=== PATIENT | female | born 1965 | race Caucasian/White ===

== ENCOUNTER 2016-05-08 09:11 | Emergency (ER) | payer MEDICARE, MEDICAID ==
[~2016-05-08] VITALS: Ht 162.6 cm; Wt 63.5 kg
[~2016-05-08 09:11] MED LIST: ACHD5005 PO; ALB0.5V; ALB0.5V INH; ALBU17AE23; ALPR.25T PO; ALPR.5T; ALPR.5T PO; ALPR0.5T7 PO; AMLO10TA2 PO; AMLO10TA82 PO; BSP10T; CEPH-38 PO; CEPH500C PO; CETI10TA17 PO; CODE118S2; CYCL10TA9 PO; CYCL5TAB11; DIAZ-345 PO; DIAZ5TAB49; FAMO-119 PO; FLUC200T PO; FLUT100D; FLUT1DIS26 IH; FLUT1DIS26 INH; GABA-488 PO; HYDR-34 PO; HYDR-3714 PO; HYDR-3812 PO; HYDR1TAB PO; IBUP-1773 PO; LEVO500T2 PO; LEVO500T69 PO; LRT10T PO; MELO-195 PO; METO50TA7; MICO1KIT VG; MTP25TSR; NACL30SP2 NS; NF-ESOM40C PO; ONDA4TAB11 PO; ONDA4TAB8 PO; OXC5T; OXYC-471 PO; OXYC5TAB71 PO; PANT40SU PO; PANT40TA PO; PANT40TA3 PO; PHEN-640 PO; PRD20T PO; PRM25T PO; PROM25SU10 PR; PROM25TA14 PO; RANI150T66; RT-ALBUINH IH; RT-ALBUINH INH; SLMFT1E; SORA200T; SUCR1TAB PO; TR1C15 TOP; TRAM50TA2 PO; TRM50T PO; ZLP10T
--- OUTSIDE RECORDS SUMMARY | 2016-05-08 09:16 | XMS REPORT | Continuity of Care Document ---
Author Author [facility] Organization [facility] Address Unknown Phone Unavailable Care Team Providers Care Card Puncher Name Role Phone PCP Unavailable Source Comments Some departments are not documenting in the electronic medical record. If you do not see the information that you expected, contact Release of Information in the Health Information Management department at [phone] for further assistance in locating additional records.[facility] Active Allergies and Adverse Reactions Not on File Current Medications Not on file Active Problems Not on file Social History Tobacco Use Types Packs/Day Years Used Date Never Assessed Plan of Care Health Maintenance Due Date Last Done Comments Physical (Comprehensive) 1970 Exam Pertussis Vaccine 1974 Tetanus Vaccine 01/29/1980 Cervical Cancer Screening 01/29/1984 Breast Cancer Screening 2003 Colorectal Cancer 2013 Screening Influenza Vaccine 12/23/2015 Results from Last 3 Months Not on file
[2016-05-08 10:12] LABS: BILIRUBIN,URINE NEGATIVE (NEGATIVE); KETONES,URINE 3+ (NEGATIVE); LEUKOCYTE ESTERASE ,URINE 1+ (NEGATIVE); NITRITE,URINE NEGATIVE (NEGATIVE); PH,URINE 7 (5-9); PROTEIN,URINE 1+ (NEGATIVE); UROBILINOGEN,URINE 1 MG/DL (NORMAL)
[2016-05-08 10:21] LABS: WBC,URINE 0-2 /HPF
[2016-05-08] MEDS ORDERED: ONDANSETRON 4 MG/2 ML (SDV) Z0FRAN IVP ONE (10:30)
[2016-05-08] MEDS ORDERED: fentaNYL INJECTION 100 MCG/2 ML AMP IVP STA (10:34)
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
[2016-05-08 12:03] LABS: BASOPHILS # (AUTO) 0.1 10^3/uL (0.0-0.1); BASOPHILS % (AUTO) 1 % (0-10); EOSINOPHILS # (AUTO) 0.2 10^3/uL (0.0-0.3); EOSINOPHILS % (AUTO) 3 % (0-10); LYMPHOCYTES # (AUTO) 1.7 X 10^3 (1.0-4.0); LYMPHOCYTES % (AUTO) 31 % (12-44); MEAN CORPUSCULAR HEMOGLOBIN 33 PG (25-34); MEAN CORPUSCULAR HGB CONC 34 G/DL (32-36); MEAN CORPUSCULAR VOLUME 96 FL (80-99); MONOCYTES # (AUTO) 0.6 X 10^3 (0.0-1.0); MONOCYTES % (AUTO) 10 % (0-12); NEUTROPHILS # (AUTO) 3.1 X 10^3 (1.8-7.8); NEUTROPHILS % (AUTO) 55 % (42-75); PLATELET COUNT 126 10^3/uL (130-400); RED BLOOD COUNT 4.41 10^6/uL (4.35-5.85); RED CELL DISTRIBUTION WIDTH 13.8 % (10.0-14.5); WHITE BLOOD COUNT 5.6 10^3/uL (4.3-11.0)
[2016-05-08 12:30] LABS: ALANINE AMINOTRANSFERASE 33 U/L (0-55); ALBUMIN 4.1 G/DL (3.2-4.5); AMYLASE 81 U/L (25-125); ANION GAP 11 MMOL/L (5-14); ASPARTATE AMINO TRANSFERASE 53 U/L (5-34); BILIRUBIN,TOTAL 1.4 MG/DL (0.1-1.0); BLOOD UREA NITROGEN 8 MG/DL (7-18); BUN/CREATININE RATIO 13; CALCIUM 9.6 MG/DL (8.5-10.1); CARBON DIOXIDE 24 MMOL/L (21-32); CHLORIDE 101 MMOL/L (98-107); CREATININE SERUM 0.64 MG/DL (0.60-1.30); GFR ESTIMATED > 60; GLUCOSE 104 MG/DL (70-105); LIPASE 26 U/L (8-78); POTASSIUM 4.1 MMOL/L (3.6-5.0); SODIUM 136 MMOL/L (135-145); TOTAL PROTEIN 8.7 G/DL (6.4-8.2)
[2016-05-08 12:31] LABS: ALCOHOL < 10 MG/DL (<10)
[2016-05-08] MEDS ORDERED: HYDR-3812 PO (12:49)
[2016-05-08] MEDS ORDERED: CYCL10TA9 PO (12:49)
[2016-05-08 13:00] VITALS: BP 153/82
== END 2016-05-08 13:00 | disposition home or self-care (01) ==
LOC: EDUNIT# 09:11 → ER 09:12
DX: R11.2 Nausea with vomiting, unspecified (principal); S39.012A Strain of muscle, fascia and tendon of lower back, initial encounter; J44.9 Chronic obstructive pulmonary disease, unspecified; I10 Essential (primary) hypertension; B19.20 Unspecified viral hepatitis C without hepatic coma; F17.210 Nicotine dependence, cigarettes, uncomplicated; Z79.899 Other long term (current) drug therapy; X50.9XXA Other and unspecified overexertion or strenuous movements or postures, initial encounter; Y92.009 Unspecified place in unspecified non-institutional (private) residence as the place of occurrence of the external cause; Y99.8 Other external cause status
CPT/HCPCS: 36415; 80053; 80320; 81000; 82150; 83690; 85025; 96374; 96375

== ENCOUNTER 2016-09-01 20:00 | Emergency (ER) | payer MEDICARE, MEDICAID ==
[~2016-09-01] VITALS: Ht 160 cm; Wt 61.2 kg
--- NOTE | 2016-09-01 21:32 | Diagnostic Imaging Report ---
Cough and hemoptysis. FINDINGS: PA and lateral views were obtained. Comparison made with prior examination of 02/26/2016. FINDINGS: The heart size, mediastinal configuration, and pulmonary vascularity are within normal limits. There is no pleural effusion, pneumothorax, or pneumonia. The osseous structures are unremarkable. IMPRESSION: No acute cardiopulmonary abnormality. Dictated by: Dictated on workstation # [id number]
[2016-09-01] MEDS ORDERED: fentaNYL INJECTION 100 MCG/2 ML AMP IVP STA (21:59)
[2016-09-01 22:07] LABS: BASOPHILS # (AUTO) 0.1 10^3/uL (0.0-0.1); BASOPHILS % (AUTO) 1 % (0-10); EOSINOPHILS # (AUTO) 0.4 10^3/uL (0.0-0.3); EOSINOPHILS % (AUTO) 4 % (0-10); LYMPHOCYTES # (AUTO) 2.2 X 10^3 (1.0-4.0); LYMPHOCYTES % (AUTO) 25 % (12-44); MEAN CORPUSCULAR HEMOGLOBIN 33 PG (25-34); MEAN CORPUSCULAR HGB CONC 34 G/DL (32-36); MEAN CORPUSCULAR VOLUME 98 FL (80-99); MEAN PLATELET VOLUME 11.1 FL (7.4-10.4); MONOCYTES # (AUTO) 0.7 X 10^3 (0.0-1.0); MONOCYTES % (AUTO) 8 % (0-12); NEUTROPHILS # (AUTO) 5.6 X 10^3 (1.8-7.8); NEUTROPHILS % (AUTO) 63 % (42-75); PLATELET COUNT 112 10^3/uL (130-400); RED BLOOD COUNT 4.39 10^6/uL (4.35-5.85); RED CELL DISTRIBUTION WIDTH 14.3 % (10.0-14.5); WHITE BLOOD COUNT 8.9 10^3/uL (4.3-11.0)
[2016-09-01 22:28] LABS: ALANINE AMINOTRANSFERASE 55 U/L (0-55); ANION GAP 13 MMOL/L (5-14); ASPARTATE AMINO TRANSFERASE 86 U/L (5-34); BILIRUBIN,TOTAL 1.4 MG/DL (0.1-1.0); BLOOD UREA NITROGEN 7 MG/DL (7-18); BUN/CREATININE RATIO 11; CALCIUM 9.5 MG/DL (8.5-10.1); CARBON DIOXIDE 24 MMOL/L (21-32); CHLORIDE 99 MMOL/L (98-107); CREATININE SERUM 0.64 MG/DL (0.60-1.30); GFR ESTIMATED > 60; GLUCOSE 93 MG/DL (70-105); POTASSIUM 3.4 MMOL/L (3.6-5.0); SODIUM 136 MMOL/L (135-145); TOTAL PROTEIN 8.4 G/DL (6.4-8.2)
--- NOTE | 2016-09-01 22:35 | ED General ---
General Chief Complaint: Coughing up blood Stated Complaint: COUGHING UP BLOOD Nursing Triage Note: to ER with complaints of coughing up blood for the past several hours. Upon entering exam room, patient requests "you all gotta give me something for my back pain, I ain't been able to keep nothin down." Nursing Sepsis Screen: No Definite Risk Source of Information: Patient Exam Limitations: No Limitations History of Present Illness Time Seen by Provider: 21:40 Initial Comments Here with report of coughing up blood tonight. States that she will From a 3 hour nap and started coughing. She noted blood from her nose and then spit up some blood and then states that she vomited some more blood that was a small amount. She does have history of cirrhosis and does have history of GI bleed. This seems to be coming from the patient's upper airway region. She denies blood in her stools. States her stools have been brown and soft without changes. Does have upper abdominal discomfort but that is chronic related to her hepatitis disease. Complains of significant back pain after coughing and states that this sometimes happens. Appears more concerned about back pain currently. Timing/Duration: 1-3 Hours Severity: Moderate Associated Systoms: No Chest Pain, Cough, No Fever/Chills, Nausea/Vomiting, No Shortness of Air, No Weakness Allergies and Home Medications Allergies Coded Allergies: codeine (Verified Allergy, Unknown, 07/05/08) Home Medications Albuterol Sulfate 18 Gm Hfa.aer.ad, 2 PUFF INH Q4H PRN for SHORTNESS OF BREATH, (Reported) Alprazolam 0.5 Mg Tablet, 0.5 MG PO BID PRN for ANXIETY, (Reported) Amlodipine Besylate 10 Mg Tablet, 10 MG PO DAILY, (Reported) Cetirizine HCl 10 Mg Tablet, 5 MG PO DAILY PRN for ALLERGIES, (Reported) TAKES 1/2 (10MG) TABLET Cyclobenzaprine HCl 10 Mg Tablet, 10 MG PO BID, (Reported) Cyclobenzaprine HCl 10 Mg Tablet, 10 MG PO TID, #12 Ref 0 Prescribed by: PJ TREJO on 05/08/16 1249 Famotidine 20 Mg Tablet, 20 MG PO BID, #30 Ref 0 Prescribed by: MARITN HOLLINGSWORTH on 08/26/15 1601 Fluconazole 200 Mg Tablet, 200 MG PO DAILY, #10 Prescribed by: DAGOBERTO WOMACK on 02/19/16 2337 Fluticasone/Salmeterol 1 Each Blst.w.dev, 1 PUFF INH BID, (Reported) Gabapentin 300 Mg Capsule, 300 MG PO DAILY PRN for PAIN, (Reported) Gabapentin 300 Mg Capsule, 300 MG PO HS, (Reported) Hydrocodone/Acetaminophen 1 Each Tablet, 2 EACH PO Q6H PRN for PAIN, #12 Ref 0 Prescribed by: PJ TREJO on 02/26/16 1858 Hydrocodone/Acetaminophen 1 Each Tablet, 2 EACH PO Q6H PRN for PAIN, #10 Ref 0 Prescribed by: PJ TREJO on 05/08/16 1249 Levofloxacin 500 Mg Tablet, 500 MG PO DAILY, #10 Prescribed by: DAGOBERTO WOMACK on 02/19/16 2337 Ondansetron 4 Mg Tab.rapdis, 4 MG PO Q6H PRN for NAUSEA, #10 Ref 0 Prescribed by: MARTIN HOLLINGSWORTH on 08/26/15 1556 Pantoprazole Sodium 40 Mg Tablet.dr, 40 MG PO DAILY, (Reported) Phenazopyridine HCl 200 Mg Tablet, 1 TAB PO TID, #15 Prescribed by: DAGOBERTO WOMACK on 02/19/16 2337 Promethazine HCl 25 Mg Tablet, 25 MG PO TID PRN for NAUSEA, (Reported) Sucralfate 1 Gm Tablet, 1 GM PO ACHS, #120 Ref 1 Prescribed by: PAYTON DISLA on 08/18/15 1015 Tramadol HCl 50 Mg Tablet, 50 MG PO BID PRN for PAIN, (Reported) Triamcinolone Acet 15 Gm Cr, TOP TID PRN for SORES, (Reported) Constitutional: see HPI, No chills, No fever EENTM: epistaxis, see HPI Respiratory: No no symptoms reported Cardiovascular: no symptoms reported Gastrointestinal: abdominal pain, hematemesis Genitourinary: no symptoms reported Musculoskeletal: back pain, muscle pain Skin: no symptoms reported Psychiatric/Neurological: No Symptoms Reported Hematologic/Lymphatic: No Symptoms Reported Immunological/Allergic: no symptoms reported All Other Systems Reviewed Negative Unless Noted: Yes Past Vggdoyt-Zzmtng-Qpdwrm Hx Patient Social History Alcohol Use: Past History Recreational Drug Use: Yes (PRESENT AND PAST IV DRUG, SMOKING THC, ALCOHOL, NARCOTICS) Drug of Choice: MARIJUANA Smoking Status: Current Everyday Smoker Type Used: Cigarettes 2nd Hand Smoke Exposure: Yes Recent Foreign Travel: No Contact w/Someone Who Travel: No Recent Infectious Disease Expo: No Recent Hopitalizations: No Immunizations Up To Date Tetanus Booster (TDap): More than 5yrs Date of Pneumonia Vaccine: Jul 22, 2008 Date of Influenza Vaccine: Jan 17, 2016 Seasonal Allergies Seasonal Allergies: No Surgeries HX Surgeries: Yes (DX LAPAROSCOPY, BACK SX; ENDOSCOPIES) Surgeries: Abdominal, Adenoidectomy, Orthopedic, Tonsillectomy Respiratory Hx Respiratory Disorders: Yes Respiratory Disorders: Asthma, COPD Cardiovascular Hx Cardiac Disorders: Yes Cardiac Disorders: Heart Murmur, Hypertension Neurological Hx Neurological Disorders: No 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 System Hx 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 Disorders: Yes Sexually Transmitted Disease: Yes 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 Genitourinary Hx Genitourinary Disorders: Yes Genitourinary Disorders: Kidney Stones Gastrointestinal Hx Gastrointestinal Disorders: Yes (HEP C +, gastritis) Gastrointestinal Disorders: Gastroesophageal Reflux, Gastrointestinal Bleed, Esophageal Varices, Hepatitis, Cirrhosis Musculoskeletal Hx Musculoskeletal Disorders: Yes Musculoskeletal Disorders: Degenerate Disk Disease, Arthritis, Fibromyalgia, Chronic Back Pain Endocrine Hx Endocrine Disorders: No HEENT HX ENT Disorders: Yes (GLASSES) Cancer Hx Cancer: No Psychosocial Hx Psychiatric Problems: Yes (POLYSUBSTANCE ABUSE--ALCOHOL, DRUGS) Behavioral Health Disorders: ADD/ADHD, Anxiety Integumentary HX Skin/Integumentary Disorder: No Blood Transfusions Hx Blood Disorders: No Reviewed Nursing Assessment Reviewed/Agree w Nursing PMH: Yes Family Medical History Significant Family History: No Pertinent Family Hx Family Medial History: Alcoholism G8 SISTER Cardiovascular disease 19 FATHER Colon cancer G8 BROTHER Diabetes mellitus G8 BROTHER Drug abuse G8 SISTER FH: cancer 19 MOTHER (BRAIN) G8 BROTHER Glaucoma 19 FATHER Hypertension 19 FATHER Myocardial infarction 19 FATHER Psychosocial problem 19 FATHER G8 BROTHER G8 SISTER Physical Exam Vital Signs Vital Sign - Last 12Hours Capillary Refill : Less Than 3 Seconds General Appearance: Anxious, Mild Distress HEENT: PERRL/EOMI, Normal ENT Inspection, Pharynx Normal Neck: Non Tender, Supple Respiratory: Lungs Clear, Normal Breath Sounds Cardiovascular: Regular Rate, Rhythm, No Murmur Gastrointestinal: Hepatomegaly, No Tenderness Back: Normal Inspection, No CVA Tenderness, No Vertebral Tenderness Extremity: Non Tender, No Calf Tenderness Neurologic/Psychiatric: Alert, Oriented x3 Skin: Normal Color, Warm/Dry Progress/Results/Core Measures Results/Orders Lab Results Laboratory Tests Test 09/01/16 21:55 Range/Units White Blood Count 8.9 4.3-11.0 10^3/uL Red Blood Count 4.39 4.35-5.85 10^6/uL Hemoglobin 14.6 11.5-16.0 G/DL Hematocrit 43 35-52 % Mean Corpuscular Volume 98 80-99 FL Mean Corpuscular Hemoglobin 33 25-34 PG Mean Corpuscular Hemoglobin Concent 34 32-36 G/DL Red Cell Distribution Width 14.3 10.0-14.5 % Platelet Count 112 L 130-400 10^3/uL Mean Platelet Volume 11.1 H 7.4-10.4 FL Neutrophils (%) (Auto) 63 42-75 % Lymphocytes (%) (Auto) 25 12-44 % Monocytes (%) (Auto) 8 0-12 % Eosinophils (%) (Auto) 4 0-10 % Basophils (%) (Auto) 1 0-10 % Neutrophils # (Auto) 5.6 1.8-7.8 X 10^3 Lymphocytes # (Auto) 2.2 1.0-4.0 X 10^3 Monocytes # (Auto) 0.7 0.0-1.0 X 10^3 Eosinophils # (Auto) 0.4 H 0.0-0.3 10^3/uL Basophils # (Auto) 0.1 0.0-0.1 10^3/uL Sodium Level 136 135-145 MMOL/L Potassium Level 3.4 L 3.6-5.0 MMOL/L Chloride Level 99 98-107 MMOL/L Carbon Dioxide Level 24 21-32 MMOL/L Anion Gap 13 5-14 MMOL/L Blood Urea Nitrogen 7 7-18 MG/DL Creatinine 0.64 0.60-1.30 MG/DL Estimat Glomerular Filtration Rate > 60 BUN/Creatinine Ratio 11 Glucose Level 93 70-105 MG/DL Calcium Level 9.5 8.5-10.1 MG/DL Total Bilirubin 1.4 H 0.1-1.0 MG/DL Aspartate Amino Transf (AST/SGOT) 86 H 5-34 U/L Alanine Aminotransferase (ALT/SGPT) 55 0-55 U/L Alkaline Phosphatase 98 40-136 U/L Total Protein 8.4 H 6.4-8.2 G/DL Albumin 4.0 3.2-4.5 G/DL My Orders Orders - AROLDO MERCADO MD Chest Pa/Lat (2 View) (09/01/16 21:11) Cbc With Automated Diff (09/01/16 21:59) Comprehensive Metabolic Panel (09/01/16 21:59) Saline Lock/Iv-Start (09/01/16 21:59) Fentanyl Injection (Sublimaze Injection (09/01/16 21:59) Vital Signs/I&O Vital Sign - Last 12Hours 09/01/16 09/01/16 09/01/16 20:22 20:22 22:10 Temp 98.7 98.7 Pulse 95 Resp 18 B/P (MAP) 134/87 Pulse Ox 95 O2 Delivery Room Air Room Air Blood Pressure Mean: 103 Progress Note : Progress Note Seen and evaluated. Chest x-ray ordered. Labs, IV and fentanyl 75 g IV ordered for pain. Monitor patient. 2315: No acute findings. Pain improved. No repeat of vomiting and no bleeding. Discharged home with return precautions. Patient verbalize understanding instructions and agreement with plan. Diagnostic Imaging Diagonstic Imaging: Xray Plain Films/CT/US/NM/MRI: chest Comments NAME: AMANDA ITLLMAN [facility] REC#: [id number] PT STATUS: REG ER : 1965 PHYSICIAN: AROLDO MERCADO MD ADMIT DATE: 09/01/16/ER Signed Date of Exam: 09/01/16 CHEST PA/LAT (2 VIEW) Cough and hemoptysis. FINDINGS: PA and lateral views were obtained. Comparison made with prior examination of 02/26/2016. FINDINGS: The heart size, mediastinal configuration, and pulmonary vascularity are within normal limits. There is no pleural effusion, pneumothorax, or pneumonia. The osseous structures are unremarkable. IMPRESSION: No acute cardiopulmonary abnormality. Dictated by: Dictated on workstation # [id number] Dict: 09/01/162127 Trans: 09/01/162153 Interpreted by: KAREN LITTLE Electronically signed by: KAREN LITTLE 09/01/162153 Departure Impression Impression: Primary Impression: Back strain Qualified Codes: S39.012A - Strain of muscle, fascia and tendon of lower back , initial encounter Additional Impression: Epistaxis Disposition: HOME, SELF-CARE Condition: Improved Departure-Patient Inst. Decision time for Depature: 23:19 Referrals: RINKU MANDEL DO (PCP/Family) Primary Care Physician Patient Instructions: Gastrointestinal Bleeding (DC), Nosebleeds (DC), Upper Back Pain (DC) Add. Discharge Instructions: All discharge instructions reviewed with patient and/or family. Voiced understanding. Follow-up with your doctor on Sunday for recheck and further evaluation. Return for vomiting blood, change in color or stool to dark/tarry or bloody, increasing abdominal pain, breathing problems, weakness or other concerns as needed. Continue home medications as directed. Copy Copies To 1: RINKU MANDEL TIMOTHY D MD September 01, 2016 22:35
[2016-09-01 23:37] VITALS: BP 110/90
== END 2016-09-01 23:36 | disposition home or self-care (01) ==
LOC: EDUNIT# 20:00 → ER 20:01
DX: S39.012A Strain of muscle, fascia and tendon of lower back, initial encounter (principal); R04.2 Hemoptysis; K74.60 Unspecified cirrhosis of liver; I10 Essential (primary) hypertension; J44.9 Chronic obstructive pulmonary disease, unspecified; F17.210 Nicotine dependence, cigarettes, uncomplicated; Z79.899 Other long term (current) drug therapy; X58.XXXA Exposure to other specified factors, initial encounter; Y99.8 Other external cause status
CPT/HCPCS: 36415; 71020; 80053; 85025

== ENCOUNTER 2016-09-06 07:10 | Emergency (ER) | payer MEDICARE, MEDICAID ==
[~2016-09-06] VITALS: Ht 160 cm; Wt 61.2 kg
[2016-09-06] MEDS ORDERED: NS IV 1000 ML 1,000 ML IV ONE (07:28)
[2016-09-06] MEDS ORDERED: PANTOPRAZOLE 40 MG/10 ML (PROTONIX) VIAL IV ONE (07:30)
[2016-09-06] MEDS ORDERED: ONDANSETRON 4 MG/2 ML (SDV) Z0FRAN IVP ONE (07:30)
[2016-09-06 08:04] LABS: BASOPHILS # (AUTO) 0.1 10^3/uL (0.0-0.1); BASOPHILS % (AUTO) 2 % (0-10); EOSINOPHILS # (AUTO) 0.3 10^3/uL (0.0-0.3); EOSINOPHILS % (AUTO) 5 % (0-10); LYMPHOCYTES % (AUTO) 36 % (12-44); MEAN CORPUSCULAR HEMOGLOBIN 33 PG (25-34); MEAN CORPUSCULAR HGB CONC 34 G/DL (32-36); MEAN CORPUSCULAR VOLUME 98 FL (80-99); MEAN PLATELET VOLUME 11.1 FL (7.4-10.4); MONOCYTES # (AUTO) 0.5 X 10^3 (0.0-1.0); MONOCYTES % (AUTO) 9 % (0-12); NEUTROPHILS # (AUTO) 2.6 X 10^3 (1.8-7.8); NEUTROPHILS % (AUTO) 48 % (42-75); PLATELET COUNT 120 10^3/uL (130-400); RED BLOOD COUNT 3.89 10^6/uL (4.35-5.85); RED CELL DISTRIBUTION WIDTH 13.9 % (10.0-14.5); WHITE BLOOD COUNT 5.5 10^3/uL (4.3-11.0)
[2016-09-06 08:05] LABS: BILIRUBIN,URINE NEGATIVE (NEGATIVE); KETONES,URINE NEGATIVE (NEGATIVE); LEUKOCYTE ESTERASE ,URINE NEGATIVE (NEGATIVE); NITRITE,URINE NEGATIVE (NEGATIVE); PH,URINE 6.5 (5-9); PROTEIN,URINE NEGATIVE (NEGATIVE); UROBILINOGEN,URINE 1 MG/DL (NORMAL)
[2016-09-06 08:14] LABS: INR 1.1 (0.8-1.4); PROTHROMBIN TIME PATIENT 14.2 SEC (12.2-14.7)
[2016-09-06 08:26] LABS: ALANINE AMINOTRANSFERASE 39 U/L (0-55); ALBUMIN 3.7 G/DL (3.2-4.5); AMMONIA 54 UMOL/L (11-32); AMYLASE 61 U/L (25-125); ANION GAP 11 MMOL/L (5-14); ASPARTATE AMINO TRANSFERASE 59 U/L (5-34); BILIRUBIN,TOTAL 0.7 MG/DL (0.1-1.0); BLOOD UREA NITROGEN 8 MG/DL (7-18); BUN/CREATININE RATIO 12; CALCIUM 9.2 MG/DL (8.5-10.1); CARBON DIOXIDE 25 MMOL/L (21-32); CHLORIDE 102 MMOL/L (98-107); CREATININE SERUM 0.66 MG/DL (0.60-1.30); GFR ESTIMATED > 60; GLUCOSE 107 MG/DL (70-105); LIPASE 45 U/L (8-78); MAGNESIUM 2.2 MG/DL (1.8-2.4); POTASSIUM 3.6 MMOL/L (3.6-5.0); SODIUM 138 MMOL/L (135-145); TOTAL PROTEIN 7.8 G/DL (6.4-8.2)
[2016-09-06 08:27] LABS: ALCOHOL < 10 MG/DL (<10)
[2016-09-06 08:29] LABS: SQUAMOUS EPITHELIAL CELL,UR 25-50 /HPF
--- NOTE | 2016-09-06 08:29 | ED General ---
General Chief Complaint: Abdominal/GI Problems Stated Complaint: THROWING UP BLOOD,BACK PAIN Nursing Triage Note: c/o intermittant spitting up blood since Sunday. Dark stools reported. Hx of alcoholism. Pt in no acute distress currently. Vital signs stable. Nursing Sepsis Screen: No Definite Risk Source of Information: Patient (DIFFICULT HISTORIAN--DIFFICULT TO KEEP ON SUBJECT), Old Records History of Present Illness Time Seen by Provider: 07:19 Initial Comments PT STATES SHE HAS BEEN VOMITING BLOOD OFF AND ON SINCE SUNDAY STATES SHE VOMITED BLOOD AGAIN TODAY X 1 AT 0630 HAS HAD DARK STOOLS WELL PT HAS HISTORY OF GI BLEEDS IN PAST AND THIS IS A RECURRING PROBLEM--STATES SHE HAS HAD A "BLEEDING ULCER" PT WITH LONG HISTORY OF ALCOHOLISM AND CLAIMS SHE LAST DRANK ON SUNDAY PT ALSO HAS HEPATITIS C--NO TREATMENT PT HAS BEEN REFERRED TO , BUT SHE REFUSES TO GO THERE PT STATES WAS HERE SUNDAY FOR THE SAME THING --HOWEVER IT WAS ACTUALLY ON Sunday09/01/16 AND PT C/O BOTH COUGHING UP AND THROWING UP BLOOD AT THAT TIME PT ALSO C/O LOWER BACK PAIN STATES SHE "STEPPED OFF A CURB WRONG" AND CAUSED INCREASED PAIN IN BACK---NO FALL OR TWISTING, ETC. THIS IS ALSO A CHRONIC COMPLAINT, AND PT SEEMS MORE CONCERNED ABOUT GETTING PAIN MEDICATION FOR HER CHRONIC BACK PAIN THAN SHE DOES FOR VOMITING BLOOD-- REPEATEDLY WANTING PAIN MEDICATION HAS NOT TAKEN ANY OF HER MEDICATIONS TODAY PT HAS BEEN TO ER MULTIPLE TIMES FOR BOTH OF THESE COMPLAINTS FOR SEVERAL YEARS PCP: DR. MANDEL--PT STATES "I'M SUPPOSED TO BE THERE NOW"-STATES SHE HAS AN APPOINTMENT THIS AM AT 0900 FOR THESE PROBLEMS--PT IS UNAWARE OF TIME Allergies and Home Medications Allergies Coded Allergies: codeine (Verified Allergy, Unknown, 07/05/08) Home Medications Albuterol Sulfate 18 Gm Hfa.aer.ad, 2 PUFF INH Q4H PRN for SHORTNESS OF BREATH, (Reported) Alprazolam 0.5 Mg Tablet, 0.5 MG PO BID PRN for ANXIETY, (Reported) Amlodipine Besylate 10 Mg Tablet, 10 MG PO DAILY, (Reported) Cetirizine HCl 10 Mg Tablet, 5 MG PO DAILY PRN for ALLERGIES, (Reported) TAKES 1/2 (10MG) TABLET Cyclobenzaprine HCl 10 Mg Tablet, 10 MG PO BID, (Reported) Cyclobenzaprine HCl 10 Mg Tablet, 10 MG PO TID, #12 Ref 0 Prescribed by: PJ TREJO on 05/08/16 1249 Famotidine 20 Mg Tablet, 20 MG PO BID, #30 Ref 0 Prescribed by: MARTIN HOLLINGSWORTH on 08/26/15 1601 Fluconazole 200 Mg Tablet, 200 MG PO DAILY, #10 Prescribed by: DAGOBERTO WOMACK on 02/19/16 2337 Fluticasone/Salmeterol 1 Each Blst.w.dev, 1 PUFF INH BID, (Reported) Gabapentin 300 Mg Capsule, 300 MG PO DAILY PRN for PAIN, (Reported) Gabapentin 300 Mg Capsule, 300 MG PO HS, (Reported) Hydrocodone/Acetaminophen 1 Each Tablet, 2 EACH PO Q6H PRN for PAIN, #12 Ref 0 Prescribed by: PJ TREJO on 02/26/16 1858 Hydrocodone/Acetaminophen 1 Each Tablet, 2 EACH PO Q6H PRN for PAIN, #10 Ref 0 Prescribed by: PJ TREJO on 05/08/16 1249 Levofloxacin 500 Mg Tablet, 500 MG PO DAILY, #10 Prescribed by: DAGOBERTO WOMCAK on 02/19/16 2337 Ondansetron 4 Mg Tab.rapdis, 4 MG PO Q6H PRN for NAUSEA, #10 Ref 0 Prescribed by: MARTIN HOLLINGSWORTH on 08/26/15 1556 Pantoprazole Sodium 40 Mg Tablet.dr, 40 MG PO DAILY, (Reported) Phenazopyridine HCl 200 Mg Tablet, 1 TAB PO TID, #15 Prescribed by: DAGOBERTO WOMACK on 02/19/16 2337 Promethazine HCl 25 Mg Tablet, 25 MG PO TID PRN for NAUSEA, (Reported) Sucralfate 1 Gm Tablet, 1 GM PO ACHS, #120 Ref 1 Prescribed by: PAYTON DISLA on 08/18/15 1015 Tramadol HCl 50 Mg Tablet, 50 MG PO BID PRN for PAIN, (Reported) Triamcinolone Acet 15 Gm Cr, TOP TID PRN for SORES, (Reported) Constitutional: no symptoms reported EENTM: no symptoms reported Respiratory: see HPI Cardiovascular: no symptoms reported Gastrointestinal: see HPI, abdominal pain (CHRONIC), hematemesis, nausea, vomiting (CHRONIC) Genitourinary: no symptoms reported Musculoskeletal: see HPI, back pain (CHRONIC ) Skin: no symptoms reported Psychiatric/Neurological: No Symptoms Reported Hematologic/Lymphatic: See HPI Immunological/Allergic: no symptoms reported Past Uoxucpg-Gjtocr-Ojxifb Hx Patient Social History Alcohol Use: Regular Use (12 PACK A DAY) Recreational Drug Use: Yes (PRESENT AND PAST IV DRUGS INCLUDING METH AND COCAINE AND "ALL THE HARD STUFF" BUT DENIES HEROIN USE, CONTINUES REGULAR MARIJUANA USE, NARCOTICS) Drug of Choice: MARIJUANA Smoking Status: Current Everyday Smoker Type Used: Cigarettes 2nd Hand Smoke Exposure: Yes Recent Foreign Travel: No Contact w/Someone Who Travel: No Recent Infectious Disease Expo: No Recent Hopitalizations: No Immunizations Up To Date Tetanus Booster (TDap): More than 5yrs Date of Pneumonia Vaccine: Jul 22, 2008 Date of Influenza Vaccine: Jan 17, 2016 Seasonal Allergies Seasonal Allergies: No Surgeries HX Surgeries: Yes (DX LAPAROSCOPY, BACK SX; ENDOSCOPIES) Surgeries: Abdominal, Adenoidectomy, Orthopedic, Tonsillectomy Respiratory Hx Respiratory Disorders: Yes Respiratory Disorders: Asthma, COPD Cardiovascular Hx Cardiac Disorders: Yes Cardiac Disorders: Heart Murmur, Hypertension Neurological Hx Neurological Disorders: No 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 System Hx 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 Disorders: Yes Sexually Transmitted Disease: Yes 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 Genitourinary Hx Genitourinary Disorders: Yes Genitourinary Disorders: Kidney Stones Gastrointestinal Hx Gastrointestinal Disorders: Yes (HEP C +, gastritis) Gastrointestinal Disorders: Gastroesophageal Reflux, Gastrointestinal Bleed, Esophageal Varices, Hepatitis, Cirrhosis Musculoskeletal Hx Musculoskeletal Disorders: Yes Musculoskeletal Disorders: Degenerate Disk Disease, Arthritis, Fibromyalgia, Chronic Back Pain Endocrine Hx Endocrine Disorders: No HEENT HX ENT Disorders: Yes (GLASSES) Cancer Hx Cancer: No Psychosocial Hx Psychiatric Problems: Yes (POLYSUBSTANCE ABUSE--ALCOHOL, DRUGS) Behavioral Health Disorders: ADD/ADHD, Anxiety Integumentary HX Skin/Integumentary Disorder: No Blood Transfusions Hx Blood Disorders: No Family Medical History Significant Family History: No Pertinent Family Hx Family Medial History: Alcoholism G8 SISTER Cardiovascular disease 19 FATHER Colon cancer G8 BROTHER Diabetes mellitus G8 BROTHER Drug abuse G8 SISTER FH: cancer 19 MOTHER (BRAIN) G8 BROTHER Glaucoma 19 FATHER Hypertension 19 FATHER Myocardial infarction 19 FATHER Psychosocial problem 19 FATHER G8 BROTHER G8 SISTER No Family History of: AIDS Abdominal aortic aneurysm Alzheimer's disease Arthritis Asthma Completed stroke Parkinson's disease Respiratory disorder Seizure disorder Severe allergy Thyroid disease Physical Exam Vital Signs Vital Sign - Last 12Hours 09/06/16 07:33 Temp 98.5 Pulse 92 Resp 16 B/P (MAP) 148/108 O2 Delivery Room Air Capillary Refill : Less Than 3 Seconds General Appearance: No Apparent Distress, WD/WN, Other (MOVES WITHOUT DIFFCULTY , DOES NOT APPEAR TO BE IN ANY DISCOMFORT OR DISTRESS) HEENT: PERRL/EOMI Neck: Normal Inspection Respiratory: Normal Breath Sounds, No Accessory Muscle Use, No Respiratory Distress Cardiovascular: Regular Rate, Rhythm, No Edema, No JVD, No Murmur, Normal Peripheral Pulses Gastrointestinal: Normal Bowel Sounds, No Pulsatile Mass, Soft, Hepatomegaly, Tenderness (EPIGASTRIC), Other (ASCITES? ) Back: No CVA Tenderness, Other (DIFFUSE LOWER BACK TENDERNESS) Extremity: Normal Capillary Refill, Normal Inspection, Normal Range of Motion, Non Tender, No Calf Tenderness, No Pedal Edema Neurologic/Psychiatric: Alert, Oriented x3 (ORIENTED TO PERSON, AND PLACE, SOMEWHAT CONFUSED TO TIME, AND ORIENTED TO SITUATION. 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 as Tested Skin: Normal Color, Warm/Dry Progress/Results/Core Measures Results/Orders Lab Results Laboratory Tests Test 09/06/16 07:50 Range/Units White Blood Count 5.5 4.3-11.0 10^3/uL Red Blood Count 3.89 L 4.35-5.85 10^6/uL Hemoglobin 13.0 11.5-16.0 G/DL Hematocrit 38 35-52 % Mean Corpuscular Volume 98 80-99 FL Mean Corpuscular Hemoglobin 33 25-34 PG Mean Corpuscular Hemoglobin Concent 34 32-36 G/DL Red Cell Distribution Width 13.9 10.0-14.5 % Platelet Count 120 L 130-400 10^3/uL Mean Platelet Volume 11.1 H 7.4-10.4 FL Neutrophils (%) (Auto) 48 42-75 % Lymphocytes (%) (Auto) 36 12-44 % Monocytes (%) (Auto) 9 0-12 % Eosinophils (%) (Auto) 5 0-10 % Basophils (%) (Auto) 2 0-10 % Neutrophils # (Auto) 2.6 1.8-7.8 X 10^3 Lymphocytes # (Auto) 2.0 1.0-4.0 X 10^3 Monocytes # (Auto) 0.5 0.0-1.0 X 10^3 Eosinophils # (Auto) 0.3 0.0-0.3 10^3/uL Basophils # (Auto) 0.1 0.0-0.1 10^3/uL Prothrombin Time 14.2 12.2-14.7 SEC INR Comment 1.1 0.8-1.4 Activated Partial Thromboplast Time 32 24-35 SEC Urine Color YELLOW Urine Clarity CLEAR Urine pH 6.5 5-9 Urine Specific [place] 1.010 L 1.016-1.022 Urine Protein NEGATIVE NEGATIVE Urine Glucose (UA) NEGATIVE NEGATIVE Urine Ketones NEGATIVE NEGATIVE Urine Nitrite NEGATIVE NEGATIVE Urine Bilirubin NEGATIVE NEGATIVE Urine Urobilinogen 1 NORMAL MG/DL Urine Leukocyte Esterase NEGATIVE NEGATIVE Urine RBC (Auto) NEGATIVE NEGATIVE Urine RBC NONE /HPF Urine WBC NONE /HPF Urine Squamous Epithelial Cells 25-50 H /HPF Urine Crystals NONE /LPF Urine Bacteria TRACE /HPF Urine Casts NONE /LPF Urine Mucus NEGATIVE /LPF Urine Culture Indicated NO Sodium Level 138 135-145 MMOL/L Potassium Level 3.6 3.6-5.0 MMOL/L Chloride Level 102 98-107 MMOL/L Carbon Dioxide Level 25 21-32 MMOL/L Anion Gap 11 5-14 MMOL/L Blood Urea Nitrogen 8 7-18 MG/DL Creatinine 0.66 0.60-1.30 MG/DL Estimat Glomerular Filtration Rate > 60 BUN/Creatinine Ratio 12 Glucose Level 107 H 70-105 MG/DL Calcium Level 9.2 8.5-10.1 MG/DL Magnesium Level 2.2 1.8-2.4 MG/DL Total Bilirubin 0.7 0.1-1.0 MG/DL Aspartate Amino Transf (AST/SGOT) 59 H 5-34 U/L Alanine Aminotransferase (ALT/SGPT) 39 0-55 U/L Alkaline Phosphatase 90 40-136 U/L Ammonia 54 H 11-32 UMOL/L Total Protein 7.8 6.4-8.2 G/DL Albumin 3.7 3.2-4.5 G/DL Amylase Level 61 25-125 U/L Lipase 45 8-78 U/L Urine Opiates Screen NEGATIVE NEGATIVE Urine Oxycodone Screen NEGATIVE NEGATIVE Urine Methadone Screen NEGATIVE NEGATIVE Urine Propoxyphene Screen NEGATIVE NEGATIVE Urine Barbiturates Screen NEGATIVE NEGATIVE Ur Tricyclic Antidepressants Screen POSITIVE H NEGATIVE Urine Phencyclidine Screen NEGATIVE NEGATIVE Urine Amphetamines Screen NEGATIVE NEGATIVE Urine Methamphetamines Screen NEGATIVE NEGATIVE Urine Benzodiazepines Screen POSITIVE H NEGATIVE Urine Cocaine Screen NEGATIVE NEGATIVE Urine Cannabinoids Screen POSITIVE H NEGATIVE Serum Alcohol < 10 <10 MG/DL My Orders Orders - VUDAGOBERTO DO Saline Lock/Iv-Start (09/06/16 07:28) Alcohol (09/06/16 07:28) Ammonia (09/06/16 07:28) Amylase (09/06/16 07:28) Cbc With Automated Diff (09/06/16 07:28) Comprehensive Metabolic Panel (09/06/16 07:28) Drug Screen Stat (Urine) (09/06/16 07:28) Lipase (09/06/16 07:28) Magnesium (09/06/16 07:28) Protime With Inr (09/06/16 07:28) Partial Thromboplastin Time (09/06/16 07:28) Ua Culture If Indicated (09/06/16 07:28) Ondansetron Injection (Zofran Injectio (09/06/16 07:30) Saline Lock/Iv-Start (09/06/16 07:28) Ns Iv 1000 Ml (Sodium Chloride 0.9%) (09/06/16 07:28) Pantoprazole Injection (Protonix Injecti (09/06/16 07:30) Ct Chest/Abdomen/Pelvis W (09/06/16 08:35) Acute Abd Series (09/06/16 08:35) Iohexol Injection (Omnipaque 350 Mg/Ml 1 (09/06/16 08:45) Sodium Chloride Flush (Catheter Flush Sy (09/06/16 08:45) Ns (Ivpb) (Sodium Chloride 0.9% Ivpb Bag (09/06/16 08:45) Diphenhydramine Injection (Benadryl Inje (09/06/16 09:45) Orphenadrine Injection (Norflex Injectio (09/06/16 09:45) Medications Given in ED Current Medications Medications Dose Ordered Sig/Pino Route Start Time Stop Time Status Last Admin Dose Admin Diphenhydramine HCl 50 mg ONCE ONCE IVP 09/06/16 09:45 09/06/16 09:55 DC 09/06/16 09:54 50 MG Iohexol 100 ml ONCE ONCE IV 09/06/16 08:45 09/06/16 08:47 DC 09/06/16 08:51 100 ML Ondansetron HCl 4 mg ONCE ONCE IVP 09/06/16 07:30 09/06/16 07:31 DC 09/06/16 08:04 4 MG Orphenadrine Citrate 60 mg ONCE ONCE IV 09/06/16 09:45 09/06/16 09:55 DC 09/06/16 09:54 60 MG Pantoprazole 80 mg ONCE ONCE IV 09/06/16 07:30 09/06/16 07:31 DC 09/06/16 08:04 80 MG Sodium Chloride 100 ml ONCE ONCE IV 09/06/16 08:45 09/06/16 08:47 DC 09/06/16 08:51 80 ML Sodium Chloride 1,000 ml @ 0 mls/hr Q0M ONCE IV 09/06/16 07:28 09/06/16 07:30 DC 09/06/16 08:05 0 MLS/HR Vital Signs/I&O Vital Sign - Last 12Hours 09/06/16 07:33 Temp 98.5 Pulse 92 Resp 16 B/P (MAP) 148/108 O2 Delivery Room Air Blood Pressure Mean: 121 Progress Note : Progress Note PT WAS NOTED TO HAVE ONE EPISODE OF THROAT CLEARING AND SPIT UP BLOOD-TINGED SPUTUM--WAS NOT NAUSEATED AND DID NOT VOMIT AT THAT TIME NO COMPLAINTS OF NAUSEA OR ANY GI COMPLAINTS AND NO VOMITING DURING ENTIRE ER STAY PT REPEATEDLY WANTING PAIN MEDICATION FOR HER CHRONIC BACK PAIN (COMPLETELY FIXATED ON THIS) --LATER STATES SHE RAN OUT OF HER PAIN MEDICATION A COUPLE OF DAYS AGO, AND DR. MANDEL REFILLS THEM EVERY 2 WEEKS, AND MISSED HER APPOINTMENT TODAY ADVISED PT I WOULD NOT BE REFILLING OR PRESCRIBING ANY PAIN MEDICATIONS PT HAS RX'S FOR ZOFRAN, PHENERGAN, PANTOPRAZOLE, FAMOTIDINE, SUCRALFATE AT HOME Diagnostic Imaging Comments ACUTE ABDOMEN XRAYS--NO ACUTE PROCESS CT ABDOMEN/PELVIS--NO ACUTE PROCESS, CIRRHOSIS /PORTAL HTN PER RADIOLOGIST REPORTS @ 0927 Reviewed: Reviewed by Me Departure Communication Progress Notes 927--SPOKE WITH DR. MANDEL, PT WITH LONG HISTORY OF NON-COMPLIANCE. HE WILL SEE IN OFFICE TOMORROW Impression Impression: Primary Impression: Chronic alcoholic gastritis Additional Impressions: Cirrhosis Hepatitis C Chronic back pain Alcohol abuse Non compliance with medical treatment Disposition: HOME, SELF-CARE Condition: Stable Departure-Patient Inst. Referrals: RINKU MANDEL DO (PCP/Family) Primary Care Physician Patient Instructions: Alcohol Abuse and Alcoholism (DC), Cirrhosis (DC), Gastritis (DC), Ulcer and Gastritis Diet Add. Discharge Instructions: TAKE YOUR MEDICATIONS PRESCRIBED FOLLOW UP WITH DR. MANDEL TOMORROW--CALL TODAY FOR APPOINTMENT All discharge instructions reviewed with patient and/or family. Voiced understanding. DAGOBERTO WOMACK DO September 06, 2016 08:29
[2016-09-06] MEDS ORDERED: NS 100 ML (IVPB) BAG IV ONE (08:45)
[2016-09-06] MEDS ORDERED: CATHETER FLUSH 10 ML SYR IV PRN (08:45)
[2016-09-06] MEDS ORDERED: IOHEXOL 350 MG/ML 100 ML (OMNIPAQUE 350) VIAL IV ONE (08:45)
--- NOTE | 2016-09-06 09:19 | Diagnostic Imaging Report ---
INDICATION: Hematemesis. History of hepatitis C COMPARISON: 09/01/2016 FINDINGS: Supine and upright views of the abdomen show a nondistended bowel gas pattern. No abnormal air fluid levels or free intraperitoneal air is seen. No abnormal extraosseous calcifications are seen. Bony and soft tissue structures are within normal limits. No organomegaly is identified. Accompanying upright chest shows normal heart size and pulmonary vascularity. The lungs are well aerated and clear. The mediastinum is normal in appearance. IMPRESSION: 1. No bowel obstruction or free air. 2. Normal chest. No pneumonia or pulmonary edema. Dictated by: Dictated on workstation # [id number]
--- NOTE | 2016-09-06 09:19 | Diagnostic Imaging Report ---
PROCEDURE: CT chest, abdomen, and pelvis with contrast. TECHNIQUE: Multiple contiguous axial images were obtained through the chest, abdomen, and pelvis after the administration of intravenous contrast. INDICATION: Hemoptysis, back pain. COMPARISON: Chest CT on 02/08/2016 and the most recent abdominal/pelvic images from August 26, 2015. FINDINGS: CHEST: The lungs are clear. There has been no recurrence of the previous right basilar mucous plug. No airway filling defect. No atelectatic segment. The lungs are clear and well expanded. There is no effusion or pneumothorax. There is no lung mass. No thoracic adenopathy. The thoracic aorta is patent and nonaneurysmal with no dissection. No acute soft tissue or osseous chest wall pathology. ABDOMEN/PELVIS: There is a prominent patent periumbilical vein with periesophageal and perigastric vascular collaterals, unchanged from the prior exam, compatible with the sequelae of cirrhosis and portal venous hypertension. Nodularity of the surface of the liver on a cirrhotic basis with generalized hepatic steatosis is an unchanged finding. The nonfocal spleen is normal in size and the previous trace perihepatic ascites has resolved in the interim. There is opacification of the intra and extrahepatic portal veins; however, directional flow cannot be addressed at CT. The pancreas appears normal. The adrenals are negative. Imaging through the pelvis reveals trace pelvic free fluid. The uterus and adnexa appear unremarkable. The appendix is visualized and normal. No pelvic adenopathy or mass. The osseous structures are nonacute. IMPRESSION: CHEST: Clear chest with no acute thoracic abnormality. ABDOMEN: Redemonstration of features of cirrhosis and portal venous hypertension. We note resolution of the previous ascites with no adverse development. The intra and extrahepatic portal venous branches are opacified. Normal sized spleen. PELVIS: Trace free fluid with no loculated collection. The pelvic CT is otherwise normal. Dictated by: Dictated on workstation # [id number]
[2016-09-06] MEDS ORDERED: diphenhydrAMINE 50 MG/ML INJ (BENADRYL) IVP ONE (09:45)
[2016-09-06] MEDS ORDERED: ORPHENADRINE 60 MG/2 ML (NORFLEX) AMP IV ONE (09:45)
[2016-09-06 10:00] VITALS: BP 131/89
== END 2016-09-06 10:00 | disposition home or self-care (01) ==
LOC: EDUNIT# 07:10 → ER 07:13
DX: K29.21 Alcoholic gastritis with bleeding (principal); K70.30 Alcoholic cirrhosis of liver without ascites; K76.6 Portal hypertension; B19.20 Unspecified viral hepatitis C without hepatic coma; I10 Essential (primary) hypertension; J44.9 Chronic obstructive pulmonary disease, unspecified; M54.5 Low back pain; G89.29 Other chronic pain; F17.210 Nicotine dependence, cigarettes, uncomplicated; Z79.899 Other long term (current) drug therapy; Z91.19 Patient's noncompliance with other medical treatment and regimen
CPT/HCPCS: 36415; 71260; 74022; 74177; 80053; 80306; 80320; 81000; 82140; 82150; 83690; 83735; 85025; 85610; 85730; 96361; 96374; 96375

== ENCOUNTER → 2016-10-02 | Outpatient (CLI) | payer MEDICARE, MEDICAID ==
--- NOTE | 2016-10-02 10:53 | Diagnostic Imaging Report ---
INDICATION: Postmenopausal bleeding. COMPARISON: None. DISCUSSION: Transabdominal and transvaginal sonographic evaluation of the pelvis was performed. The uterus is normal in echotexture and size measuring 4.5 x 3.0 x 2.1 cm. No uterine mass identified. Normal endometrial thickness measuring 0.4 cm. Neither ovary was visualized, either obscured by bowel or atrophied. No abnormal adnexal mass or fluid. IMPRESSION: Nonvisualization of the bilateral ovaries. No other acute abnormality identified. Dictated by: Dictated on workstation # [id number]
== END | disposition home or self-care (01) ==
LOC: RAD 09:49
PROVIDERS: ATTEND Family Medicine
DX: N95.0 Postmenopausal bleeding (principal)
CPT/HCPCS: 76830; 76856

== ENCOUNTER → 2016-10-03 | Outpatient (CLI) | payer MEDICARE, MEDICAID ==
--- NOTE | 2016-10-04 15:18 | Diagnostic Imaging Report ---
EXAMINATION: Bilateral digital screening mammogram with CAD. The current study was also evaluated with a Computer Aided Detection (CAD) system. INDICATION: Screening. No current complaints stated on the questionnaire. COMPARISON: 01/01/2003. FINDINGS: The breasts are composed of heterogeneously dense parenchyma which may decrease mammographic sensitivity. There is an asymmetry, measuring 1 cm, along the upper aspect of the right MLO view with no definite correlate on the CC projection. There is also a 6 mm upper left breast focal asymmetry seen. No suspicious calcifications. Comparison from the previous exam of 2002 is of limited value due to the significant changes in the breast parenchyma from that time. IMPRESSION: Bilateral upper breast asymmetry is seen. Focal compression views and ultrasound evaluation is pending. ACR BI-RADS Category 0: Incomplete. (Needs additional imaging evaluation). Result letter will be mailed to the patient. Note: At least 10% of breast cancer is not imaged by mammography. Dictated by: Dictated on workstation # [id number]
== END ==
LOC: RAD 08:43
PROVIDERS: ATTEND Family Medicine
DX: Z12.31 Encounter for screening mammogram for malignant neoplasm of breast (principal)
CPT/HCPCS: 77067

== ENCOUNTER 2016-10-07 18:26 | Observation (INO) | payer MEDICARE, MEDICAID ==
[~2016-10-07] VITALS: Ht 160 cm; Wt 60.6 kg
[2016-10-07 19:04] LABS: BILIRUBIN,URINE NEGATIVE (NEGATIVE); KETONES,URINE NEGATIVE (NEGATIVE); LEUKOCYTE ESTERASE ,URINE NEGATIVE (NEGATIVE); NITRITE,URINE NEGATIVE (NEGATIVE); PH,URINE 6 (5-9); PROTEIN,URINE NEGATIVE (NEGATIVE); UROBILINOGEN,URINE NORMAL (NORMAL)
[2016-10-07 19:13] LABS: BASOPHILS # (AUTO) 0.1 10^3/uL (0.0-0.1); BASOPHILS % (AUTO) 1 % (0-10); EOSINOPHILS # (AUTO) 0.5 10^3/uL (0.0-0.3); EOSINOPHILS % (AUTO) 7 % (0-10); LYMPHOCYTES # (AUTO) 2.9 X 10^3 (1.0-4.0); LYMPHOCYTES % (AUTO) 37 % (12-44); MEAN CORPUSCULAR HEMOGLOBIN 32 PG (25-34); MEAN CORPUSCULAR HGB CONC 34 G/DL (32-36); MEAN CORPUSCULAR VOLUME 94 FL (80-99); MONOCYTES # (AUTO) 0.5 X 10^3 (0.0-1.0); MONOCYTES % (AUTO) 6 % (0-12); NEUTROPHILS # (AUTO) 3.9 X 10^3 (1.8-7.8); NEUTROPHILS % (AUTO) 50 % (42-75); PLATELET COUNT 141 10^3/uL (130-400); RED BLOOD COUNT 4.37 10^6/uL (4.35-5.85); RED CELL DISTRIBUTION WIDTH 13.6 % (10.0-14.5); WHITE BLOOD COUNT 7.9 10^3/uL (4.3-11.0)
[2016-10-07 19:13] LABS: WBC,URINE 0-2 /HPF
[2016-10-07 19:20] LABS: ALANINE AMINOTRANSFERASE 28 U/L (0-55); ALBUMIN 4.1 GM/DL (3.2-4.5); AMYLASE 91 U/L (25-125); ANION GAP 14 MMOL/L (5-14); ASPARTATE AMINO TRANSFERASE 48 U/L (5-34); BILIRUBIN,TOTAL 0.8 MG/DL (0.1-1.0); BLOOD UREA NITROGEN 5 MG/DL (7-18); BUN/CREATININE RATIO 7 (0-20); CALCIUM 9.6 MG/DL (8.5-10.1); CARBON DIOXIDE 23 MMOL/L (21-32); CHLORIDE 102 MMOL/L (98-107); CREATININE SERUM 0.68 MG/DL (0.60-1.30); GFR ESTIMATED > 60; GLUCOSE 98 MG/DL (70-105); HEMOLYSIS 40 (-100-29); ICTERUS 0.6 (-100-1.9); LIPASE 44 U/L (8-78); LIPEMIA 4 (-100-49); POTASSIUM 3.9 MMOL/L (3.6-5.0); SODIUM 139 MMOL/L (135-145); TOTAL PROTEIN 8.8 GM/DL (6.4-8.2)
[2016-10-07] MEDS ORDERED: PROMETHAZINE INJ 25 MG/ML (PHENERGAN) AMP IVP STA (20:20)
[2016-10-07] MEDS ORDERED: KETOROLAC 30 MG/ML VIAL IVP STA (20:20)
[2016-10-07] MEDS ORDERED: LACTATED RINGERS 1,000 ML IV ONE (20:20)
[2016-10-07] MEDS ORDERED: ONDANSETRON 4 MG/2 ML (SDV) Z0FRAN IVP ONE (20:30)
[2016-10-07] MEDS ORDERED: IOHEXOL 350 MG/ML 100 ML (OMNIPAQUE 350) VIAL IV ONE (20:30)
[2016-10-07] MEDS ORDERED: diphenhydrAMINE 50 MG/ML INJ (BENADRYL) IVP ONE (20:30)
[2016-10-07] MEDS ORDERED: NS 100 ML (IVPB) BAG IV ONE (20:30)
[2016-10-07] MEDS ORDERED: PANTOPRAZOLE 40 MG/10 ML (PROTONIX) VIAL IV ONE (20:30)
--- NOTE | 2016-10-07 21:15 | ED Abdominal Pain ---
General Chief Complaint: Abdominal/GI Problems Stated Complaint: L SIDE STOMACH PAIN Nursing Triage Note: States having sharp pain to left upper quad. Started yesterday. C/O nausea and vomiting. Sepsis Screen: No Definite Risk Source of Information: Patient, Old Records Allergies and Home Medications Allergies Coded Allergies: codeine (Verified Allergy, Unknown, 10/07/16) Home Medications Albuterol Sulfate 18 Gm Hfa.aer.ad, 2 PUFF INH Q4H PRN for SHORTNESS OF BREATH, (Reported) Alprazolam 0.5 Mg Tablet, 0.5 MG PO BID PRN for ANXIETY, (Reported) Amlodipine Besylate 10 Mg Tablet, 10 MG PO DAILY, (Reported) Cetirizine HCl 10 Mg Tablet, 5 MG PO DAILY PRN for ALLERGIES, (Reported) TAKES 1/2 (10MG) TABLET Cyclobenzaprine HCl 10 Mg Tablet, 10 MG PO BID, (Reported) Cyclobenzaprine HCl 10 Mg Tablet, 10 MG PO TID, #12 Ref 0 Prescribed by: PJ TREJO on 05/08/16 1249 Famotidine 20 Mg Tablet, 20 MG PO BID, #30 Ref 0 Prescribed by: MARTIN HOLLINGSWORTH on 08/26/15 1601 Fluconazole 200 Mg Tablet, 200 MG PO DAILY, #10 Prescribed by: DAGOBERTO WOMACK on 02/19/16 2337 Fluticasone/Salmeterol 1 Each Blst.w.dev, 1 PUFF INH BID, (Reported) Gabapentin 300 Mg Capsule, 300 MG PO DAILY PRN for PAIN, (Reported) Gabapentin 300 Mg Capsule, 300 MG PO HS, (Reported) Hydrocodone/Acetaminophen 1 Each Tablet, 2 EACH PO Q6H PRN for PAIN, #12 Ref 0 Prescribed by: PJ TREJO on 02/26/16 1858 Hydrocodone/Acetaminophen 1 Each Tablet, 2 EACH PO Q6H PRN for PAIN, #10 Ref 0 Prescribed by: PJ TREJO on 05/08/16 1249 Levofloxacin 500 Mg Tablet, 500 MG PO DAILY, #10 Prescribed by: DAGOBERTO WOMACK on 02/19/16 2337 Ondansetron 4 Mg Tab.rapdis, 4 MG PO Q6H PRN for NAUSEA, #10 Ref 0 Prescribed by: MARTIN HOLLINGSWORTH on 08/26/15 1556 Pantoprazole Sodium 40 Mg Tablet.dr, 40 MG PO DAILY, (Reported) Phenazopyridine HCl 200 Mg Tablet, 1 TAB PO TID, #15 Prescribed by: DAGOBERTO WOMACK on 02/19/16 2337 Promethazine HCl 25 Mg Tablet, 25 MG PO TID PRN for NAUSEA, (Reported) Sucralfate 1 Gm Tablet, 1 GM PO ACHS, #120 Ref 1 Prescribed by: PAYTON DISLA on 08/18/15 1015 Tramadol HCl 50 Mg Tablet, 50 MG PO BID PRN for PAIN, (Reported) Triamcinolone Acet 15 Gm Cr, TOP TID PRN for SORES, (Reported) Past Wfobosd-Whmbeh-Lyniyz Hx Patient Social History Alcohol Use: Rarely Uses Recreational Drug Use: Yes (PRESENT AND PAST IV DRUG, SMOKING THC, ALCOHOL, NARCOTICS) Drug of Choice: MARIJUANA Type Used: Cigarettes 2nd Hand Smoke Exposure: Yes Recent Foreign Travel: No Contact w/Someone Who Travel: No Recent Infectious Disease Expo: No Recent Hopitalizations: No Immunizations Up To Date Tetanus Booster (TDap): More than 5yrs Date of Pneumonia Vaccine: Jul 22, 2008 Date of Influenza Vaccine: Jan 17, 2016 Seasonal Allergies Seasonal Allergies: No Surgeries HX Surgeries: Yes (DX LAPAROSCOPY, BACK SX; ENDOSCOPIES) Surgeries: Abdominal, Adenoidectomy, Orthopedic, Tonsillectomy Respiratory Hx Respiratory Disorders: Yes Respiratory Disorders: Asthma, COPD Cardiovascular Hx Cardiac Disorders: Yes Cardiac Disorders: Heart Murmur, Hypertension Neurological Hx Neurological Disorders: No 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 System Hx 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 Disorders: Yes Sexually Transmitted Disease: Yes 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 Disorders: Denies 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 Genitourinary Hx Genitourinary Disorders: Yes Genitourinary Disorders: Kidney Stones Gastrointestinal Hx Gastrointestinal Disorders: Yes (HEP C +, gastritis) Gastrointestinal Disorders: Gastroesophageal Reflux, Gastrointestinal Bleed, Esophageal Varices, Hepatitis, Cirrhosis Musculoskeletal Hx Musculoskeletal Disorders: Yes Musculoskeletal Disorders: Degenerate Disk Disease, Arthritis, Fibromyalgia, Chronic Back Pain Endocrine Hx Endocrine Disorders: No HEENT HX ENT Disorders: Yes (GLASSES) Cancer Hx Cancer: No Psychosocial Hx Psychiatric Problems: Yes (POLYSUBSTANCE ABUSE--ALCOHOL, DRUGS) Behavioral Health Disorders: ADD/ADHD, Anxiety Integumentary HX Skin/Integumentary Disorder: No Blood Transfusions Hx Blood Disorders: No Family Medical History Significant Family History: No Pertinent Family Hx Family Medial History: Alcoholism G8 SISTER Cardiovascular disease 19 FATHER Colon cancer G8 BROTHER Diabetes mellitus G8 BROTHER Drug abuse G8 SISTER FH: cancer 19 MOTHER (BRAIN) G8 BROTHER Glaucoma 19 FATHER Hypertension 19 FATHER Myocardial infarction 19 FATHER Psychosocial problem 19 FATHER G8 BROTHER G8 SISTER No Family History of: AIDS Abdominal aortic aneurysm Alzheimer's disease Arthritis Asthma Completed stroke Parkinson's disease Respiratory disorder Seizure disorder Severe allergy Thyroid disease Physical Exam Vital Signs VS - Last 72 Hours, by Label 10/07/16 18:35 Temp 99.5 Pulse 100 Resp 18 B/P (MAP) 131/81 Pulse Ox 99 Capillary Refill : Less Than 3 Seconds General Appearance: other (DRAMATIC, BELLIGERANT, CURSING, DEMANDING, SPEECH SLIGHTLY SLURRED/THICK TONGUED--APPEARS TO BE UNDER THE INFLUENCE OF SOME SUBSTANCE. ) HEENT: PERRL/EOMI Respiratory: normal breath sounds, no respiratory distress, no accessory muscle use Cardiovascular: regular rate, rhythm, no murmur Gastrointestinal: soft Extremities: normal inspection Back: normal inspection, no CVA tenderness Neurologic/Psychiatric: spinal surgeon II-XII nml as tested, no motor/sensory deficits, alert, oriented x 3 Skin: normal color, warm/dry Progress/Results/Core Measures Results/Orders Lab Results Laboratory Tests Test 10/07/16 18:49 10/07/16 18:58 Range/Units White Blood Count 7.9 4.3-11.0 10^3/uL Red Blood Count 4.37 4.35-5.85 10^6/uL Hemoglobin 13.9 11.5-16.0 G/DL Hematocrit 41 35-52 % Mean Corpuscular Volume 94 80-99 FL Mean Corpuscular Hemoglobin 32 25-34 PG Mean Corpuscular Hemoglobin Concent 34 32-36 G/DL Red Cell Distribution Width 13.6 10.0-14.5 % Platelet Count 141 130-400 10^3/uL Mean Platelet Volume 11.0 H 7.4-10.4 FL Neutrophils (%) (Auto) 50 42-75 % Lymphocytes (%) (Auto) 37 12-44 % Monocytes (%) (Auto) 6 0-12 % Eosinophils (%) (Auto) 7 0-10 % Basophils (%) (Auto) 1 0-10 % Neutrophils # (Auto) 3.9 1.8-7.8 X 10^3 Lymphocytes # (Auto) 2.9 1.0-4.0 X 10^3 Monocytes # (Auto) 0.5 0.0-1.0 X 10^3 Eosinophils # (Auto) 0.5 H 0.0-0.3 10^3/uL Basophils # (Auto) 0.1 0.0-0.1 10^3/uL Sodium Level 139 135-145 MMOL/L Potassium Level 3.9 3.6-5.0 MMOL/L Chloride Level 102 98-107 MMOL/L Carbon Dioxide Level 23 21-32 MMOL/L Anion Gap 14 5-14 MMOL/L Blood Urea Nitrogen 5 L 7-18 MG/DL Creatinine 0.68 0.60-1.30 MG/DL Estimat Glomerular Filtration Rate > 60 BUN/Creatinine Ratio 7 0-20 Glucose Level 98 70-105 MG/DL Calcium Level 9.6 8.5-10.1 MG/DL Total Bilirubin 0.8 0.1-1.0 MG/DL Aspartate Amino Transf (AST/SGOT) 48 H 5-34 U/L Alanine Aminotransferase (ALT/SGPT) 28 0-55 U/L Alkaline Phosphatase 117 40-136 U/L Total Protein 8.8 H 6.4-8.2 GM/DL Albumin 4.1 3.2-4.5 GM/DL Amylase Level 91 25-125 U/L Lipase 44 8-78 U/L Serum Alcohol 22 H <10 MG/DL Urine Color YELLOW Urine Clarity CLEAR Urine pH 6 5-9 Urine Specific [place] 1.010 L 1.016-1.022 Urine Protein NEGATIVE NEGATIVE Urine Glucose (UA) NEGATIVE NEGATIVE Urine Ketones NEGATIVE NEGATIVE Urine Nitrite NEGATIVE NEGATIVE Urine Bilirubin NEGATIVE NEGATIVE Urine Urobilinogen NORMAL NORMAL MG/DL Urine Leukocyte Esterase NEGATIVE NEGATIVE Urine RBC (Auto) NEGATIVE NEGATIVE Urine RBC NONE /HPF Urine WBC 0-2 /HPF Urine Squamous Epithelial Cells 2-5 /HPF Urine Crystals NONE /LPF Urine Bacteria NEGATIVE /HPF Urine Casts NONE /LPF Urine Mucus NEGATIVE /LPF Urine Culture Indicated NO Urine Opiates Screen NEGATIVE NEGATIVE Urine Oxycodone Screen NEGATIVE NEGATIVE Urine Methadone Screen NEGATIVE NEGATIVE Urine Propoxyphene Screen NEGATIVE NEGATIVE Urine Barbiturates Screen NEGATIVE NEGATIVE Ur Tricyclic Antidepressants Screen NEGATIVE NEGATIVE Urine Phencyclidine Screen NEGATIVE NEGATIVE Urine Amphetamines Screen NEGATIVE NEGATIVE Urine Methamphetamines Screen NEGATIVE NEGATIVE Urine Benzodiazepines Screen POSITIVE H NEGATIVE Urine Cocaine Screen NEGATIVE NEGATIVE Urine Cannabinoids Screen POSITIVE H NEGATIVE My Orders Orders - VU,DAGOBERTO K DO Saline Lock/Iv-Start (10/07/16 18:59) Amylase (10/07/16 18:59) Cbc With Automated Diff (10/07/16 18:59) Comprehensive Metabolic Panel (10/07/16 18:59) Lipase (10/07/16 18:59) Ua Culture If Indicated (10/07/16 18:59) Alcohol (10/07/16 20:20) Drug Screen Stat (Urine) (10/07/16 20:20) Ct Abd/Pelv W (Appendicitis) (10/07/16 20:20) Acute Abd Series (10/07/16 20:20) Saline Lock/Iv-Start (10/07/16 20:20) Lactated Ringers (Lr 1000 Ml Iv Solution (10/07/16 20:20) Promethazine Injection (Phenergan Injec (10/07/16 20:20) Ondansetron Injection (Zofran Injectio (10/07/16 20:30) Ketorolac Injection (Toradol Injection) (10/07/16 20:20) Pantoprazole Injection (Protonix Injecti (10/07/16 20:30) Diphenhydramine Injection (Benadryl Inje (10/07/16 20:30) Iohexol Injection (Omnipaque 350 Mg/Ml 1 (10/07/16 20:30) Ns (Ivpb) (Sodium Chloride 0.9% Ivpb Bag (10/07/16 20:30) Medications Given in ED Current Medications Medications Dose Ordered Sig/Pino Route Start Time Stop Time Status Last Admin Dose Admin Diphenhydramine HCl 25 mg ONCE ONCE IVP 10/07/16 20:30 10/07/16 20:31 DC 10/07/16 20:45 25 MG Iohexol 100 ml ONCE ONCE IV 10/07/16 20:30 10/07/16 20:31 DC 10/07/16 20:54 100 ML Lactated Ringer's 1,000 ml @ 0 mls/hr Q0M ONCE IV 10/07/16 20:20 10/07/16 20:24 DC 10/07/16 21:11 0 MLS/HR Ondansetron HCl 8 mg ONCE ONCE IVP 10/07/16 20:30 10/07/16 20:31 DC 10/07/16 20:45 8 MG Pantoprazole 40 mg ONCE ONCE IV 10/07/16 20:30 10/07/16 20:31 DC 10/07/16 20:35 40 MG Sodium Chloride 100 ml ONCE ONCE IV 10/07/16 20:30 10/07/16 20:31 DC 10/07/16 20:54 80 ML Vital Signs/I&O Vital Sign - Last 12Hours 10/07/16 18:35 Temp 99.5 Pulse 100 Resp 18 B/P (MAP) 131/81 Pulse Ox 99 Blood Pressure Mean: 98 Diagnostic Imaging Comments ACUTE ABDOMEN XRAYS--CONSTIPATION, NO ACUTE PROCESS--PER RADIOLOGIST REPORT @ 2122 Reviewed: Reviewed by Me Departure Impression Condition: Improved Departure-Patient Inst. Referrals: RINKU MANDEL DO (PCP) Primary Care Physician DAGOBERTO WOMACK DO Oct 07, 2016 21:15
--- NOTE | 2016-10-07 21:15 | Diagnostic Imaging Report ---
INDICATION: Sharp pain in the left upper quadrant with nausea and vomiting EXAMINATION: Abdomen series 10/07/16 FINDINGS: Frontal chest with upright and supine imaging of the abdomen The lungs demonstrate bibasilar atelectasis. No free air is seen under the diaphragm. Scattered air and stool seen throughout the colon to the rectosigmoid. No dilated loops of bowel are seen. Findings of constipation noted. IMPRESSION: 1. Atelectasis at the lung bases 2. Findings of diffuse constipation with a nonobstructive bowel gas pattern at this time. Dictated by: Dictated on workstation # [id number]
--- NOTE | 2016-10-07 21:47 | Diagnostic Imaging Report ---
INDICATION: Sharp pains in left upper quadrant with nausea and vomiting. EXAMINATION: CT abdomen and pelvis with contrast, 10/07/2016. COMPARISON: 04/26/15 and 01/25/2015. FINDINGS: The liver is diffusely enlarged and lobular in appearance, likely due to cirrhosis. Heterogeneous areas within the liver are noted, perhaps the previously described dysplastic changes on an MRI from 2014. Followup on a nonemergent basis using liver protocol is recommended to exclude development of new masses within the liver. Varices are noted, especially in the lower chest, along the course of the esophagus. Varices in the upper abdomen are also noted. The spleen is unremarkable. The adrenal glands are unremarkable. Pancreas is normal in appearance. Gallbladder wall is minimally thickened but no surrounding inflammation is appreciated. Recanalization of the umbilical vein is noted. There is some ascites especially in the pelvis. There are findings of constipation. The appendix is seen. It contains a small appendicolith. No dilatation the appendix is seen and there is no adjacent free air. The minimal adjacent fat stranding is likely a chronic process given similar findings on previous CT exams throughout the right midabdomen. There is no evidence for free air. There are multiple prominent lymph nodes in the right upper quadrant of uncertain etiology. The visualized lung bases demonstrate no acute disease. There is no acute process in the osseous structures. IMPRESSION: 1. Small amount of ascites, especially in the abdomen and pelvis, with findings of likely some history of cirrhosis, as discussed above 2. Findings of constipation. 3. Minimal fat stranding scattered throughout the abdomen, much of which is stable from previous imaging. Some of this does lie adjacent to the appendix with the appendix, itself, other than containing an appendicolith, of normal caliber and appearance. If there is continued concern, short-term interval followup could be performed. 4. Other incidental findings, as discussed above. This includes lymphadenopathy which is of uncertain etiology, clinical correlation and followup recommended to exclude a metastatic process. 5. Not mentioned in the body of the report, minimal wall thickening of the sigmoid colon is noted which could be due to underdistention versus colitis, correlate with symptoms. Dictated by: Dictated on workstation # [id number]
[2016-10-07] MEDS ORDERED: DICYCLOMINE 10 MG/ML (BENTYL) 2 ML AMP IM ONE (22:45)
[2016-10-08] VITALS: BP 136/73
[2016-10-08] MEDS ORDERED: D5 1/2 NS 1000 ML IV SOLUTION 1,000 ML IV ONE (01:11)
[2016-10-08] MEDS ORDERED: POLYETHYLENE GLYCOL 17 GM (MIRALAX) PACK ONE (01:11)
[2016-10-08] MEDS ORDERED: LORazepam INJ 2 MG/ML (ATIVAN) VIAL ONE (01:13)
[2016-10-08] MEDS ORDERED: PROMETHAZINE INJ 25 MG/ML (PHENERGAN) AMP IV PRN (01:45)
[2016-10-08] MEDS ORDERED: ONDANSETRON 4 MG/2 ML (SDV) Z0FRAN IV PRN (01:45)
[2016-10-08] MEDS ORDERED: diphenhydrAMINE 50 MG/ML INJ (BENADRYL) IV PRN (01:45)
[2016-10-08] MEDS: LORazepam INJ 2 MG/ML (ATIVAN) VIAL IV PRN ×4 (02:07→21:29)
[2016-10-08] MEDS: D5 1/2 NS 1000 ML IV SOLUTION 1,000 ML IV SCH ×2 (02:08→08:52)
[2016-10-08] MEDS: MAGNESIUM CITRATE 300 ML BTL PO SCH ×4 (02:08→18:49)
[2016-10-08] MEDS: POLYETHYLENE GLYCOL 17 GM (MIRALAX) PACK PO SCH ×2 (02:08→08:51)
[2016-10-08 04:00] VITALS: BP 133/74
[2016-10-08] MEDS: DICYCLOMINE 10 MG/ML (BENTYL) 2 ML AMP IM PRN ×3 (04:59→21:31)
[2016-10-08 05:57] LABS: BASOPHILS % (AUTO) 0 % (0-10); EOSINOPHILS # (AUTO) 0.3 10^3/uL (0.0-0.3); EOSINOPHILS % (AUTO) 4 % (0-10); LYMPHOCYTES # (AUTO) 2.1 X 10^3 (1.0-4.0); LYMPHOCYTES % (AUTO) 27 % (12-44); MEAN CORPUSCULAR HEMOGLOBIN 32 PG (25-34); MEAN CORPUSCULAR HGB CONC 34 G/DL (32-36); MEAN CORPUSCULAR VOLUME 94 FL (80-99); MEAN PLATELET VOLUME 11.1 FL (7.4-10.4); MONOCYTES # (AUTO) 0.8 X 10^3 (0.0-1.0); MONOCYTES % (AUTO) 10 % (0-12); NEUTROPHILS # (AUTO) 4.4 X 10^3 (1.8-7.8); NEUTROPHILS % (AUTO) 58 % (42-75); PLATELET COUNT 113 10^3/uL (130-400); RED BLOOD COUNT 4.04 10^6/uL (4.35-5.85); RED CELL DISTRIBUTION WIDTH 13.5 % (10.0-14.5); WHITE BLOOD COUNT 7.7 10^3/uL (4.3-11.0)
[2016-10-08 06:31] LABS: ALANINE AMINOTRANSFERASE 24 U/L (0-55); ALBUMIN 3.7 GM/DL (3.2-4.5); AMYLASE 65 U/L (25-125); ANION GAP 13 MMOL/L (5-14); ASPARTATE AMINO TRANSFERASE 44 U/L (5-34); BLOOD UREA NITROGEN 5 MG/DL (7-18); BUN/CREATININE RATIO 8 (0-20); CARBON DIOXIDE 22 MMOL/L (21-32); CHLORIDE 103 MMOL/L (98-107); CREATININE SERUM 0.62 MG/DL (0.60-1.30); GFR ESTIMATED > 60; GLUCOSE 140 MG/DL (70-105); HEMOLYSIS 6 (-100-29); ICTERUS 0.9 (-100-1.9); LIPASE 21 U/L (8-78); LIPEMIA 1 (-100-49); POTASSIUM 3.4 MMOL/L (3.6-5.0); SODIUM 138 MMOL/L (135-145)
[2016-10-08 08:00] VITALS: BP 131/78
--- NOTE | 2016-10-08 08:47 | History & Physicial ---
History of Present Illness History of Present Illness Reason for visit/HPI PATIENT CAME OUT TO THE EMERGENCY ROOM DUE TO ABDOMINAL PAIN>Patient has a history of hepatitis c. Patient is noncompliant and have several times canceled appointments with international affairs vice president for treatment. Patient still drinks. Patient still smokes. CAT scan shows patient constipated. Patient has noncompliance history. Patient does use marijuana. Patient does have a history of hypertension Date of Admission Oct 07, 2016 at 22:20 Time Seen by Provider: 08:35 I consulted on this patient on 10/08/16 08:42 Attending Physician Rinku Mandel DO Admitting Physician Rinku Mandel DO Consult Allergies and Home Medications Allergies Coded Allergies: codeine (Verified Allergy, Unknown, 10/07/16) Home Medications Albuterol Sulfate 18 Gm Hfa.aer.ad, 2 PUFF INH Q4H PRN for SHORTNESS OF BREATH, (Reported) Alprazolam 0.5 Mg Tablet, 0.5 MG PO BID PRN for ANXIETY, (Reported) Amlodipine Besylate 10 Mg Tablet, 10 MG PO DAILY, (Reported) Cetirizine HCl 10 Mg Tablet, 5 MG PO DAILY PRN for ALLERGIES, (Reported) TAKES 1/2 (10MG) TABLET Cyclobenzaprine HCl 10 Mg Tablet, 10 MG PO BID, (Reported) Cyclobenzaprine HCl 10 Mg Tablet, 10 MG PO TID, #12 Ref 0 Prescribed by: PJ TREJO on 05/08/16 1249 Famotidine 20 Mg Tablet, 20 MG PO BID, #30 Ref 0 Prescribed by: MARTIN HOLLIGNSWORTH on 08/26/15 1601 Fluconazole 200 Mg Tablet, 200 MG PO DAILY, #10 Prescribed by: DAGOBERTO WOMACK on 02/19/16 2337 Fluticasone/Salmeterol 1 Each Blst.w.dev, 1 PUFF INH BID, (Reported) Gabapentin 300 Mg Capsule, 300 MG PO DAILY PRN for PAIN, (Reported) Gabapentin 300 Mg Capsule, 300 MG PO HS, (Reported) Hydrocodone/Acetaminophen 1 Each Tablet, 2 EACH PO Q6H PRN for PAIN, #12 Ref 0 Prescribed by: PJ TREJO on 02/26/16 1858 Hydrocodone/Acetaminophen 1 Each Tablet, 2 EACH PO Q6H PRN for PAIN, #10 Ref 0 Prescribed by: PJ TREJO on 05/08/16 1249 Levofloxacin 500 Mg Tablet, 500 MG PO DAILY, #10 Prescribed by: DAGOBERTO WOMACK on 02/19/16 2337 Ondansetron 4 Mg Tab.rapdis, 4 MG PO Q6H PRN for NAUSEA, #10 Ref 0 Prescribed by: MARTIN HOLLINGSWORTH on 08/26/15 1556 Pantoprazole Sodium 40 Mg Tablet.dr, 40 MG PO DAILY, (Reported) Phenazopyridine HCl 200 Mg Tablet, 1 TAB PO TID, #15 Prescribed by: DAGOBERTO WOMACK on 02/19/16 2337 Promethazine HCl 25 Mg Tablet, 25 MG PO TID PRN for NAUSEA, (Reported) Sucralfate 1 Gm Tablet, 1 GM PO ACHS, #120 Ref 1 Prescribed by: PAYTON DISLA on 08/18/15 1015 Tramadol HCl 50 Mg Tablet, 50 MG PO BID PRN for PAIN, (Reported) Triamcinolone Acet 15 Gm Cr, TOP TID PRN for SORES, (Reported) Past Gkeenur-Xhmzud-Mgonlm Hx Patient Social History Marrital Status: single Employed/Student: unemployed Alcohol Use: Regular Use Recreational Drug Use: Yes (Marijuana ) Drug of Choice: MARIJUANA Smoking Status: Current Everyday Smoker Type Used: Cigarettes 2nd Hand Smoke Exposure: Yes Physical Abuse Screen: No Sexual Abuse: No Recent Foreign Travel: No Contact w/other who traveled: No Recent Hopitalizations: No Recent Infectious Disease Expo: No Immunizations Up To Date Tetanus Booster (TDap): More than 5yrs Date of Pneumonia Vaccine: Jul 22, 2008 Date of Influenza Vaccine: Jan 17, 2016 Seasonal Allergies Seasonal Allergies: Yes Surgeries HX Surgeries: Yes (DX LAPAROSCOPY, BACK SX; ENDOSCOPIES) Surgeries: Abdominal, Adenoidectomy, Orthopedic, Tonsillectomy Respiratory Hx Respiratory Disorders: Yes Respiratory Disorders: COPD Cardiovascular Hx Cardiovascular Disorders: Yes Cardiac Disorders: Heart Murmur, Hypertension Neurological Hx Neurological Disorders: No 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 System Hx 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 Disorders: Yes Sexually Transmitted Disease: Yes HIV/AIDS: No 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 Disorders: Denies Genitourinary Hx Genitourinary Disorders: Yes Genitourinary Disorders: Kidney Stones Gastrointestinal Hx Gastrointestinal Disorders: Yes (HEP C +, gastritis) Gastrointestinal Disorders: Gastroesophageal Reflux, Gastrointestinal Bleed, Esophageal Varices, Hepatitis, Cirrhosis Musculoskeletal Hx Musculoskeletal Disorders: Yes Musculoskeletal Disorders: Arthritis, Fibromyalgia, Chronic Back Pain Endocrine Hx Endocrine Disorders: No HEENT HX ENT Disorders: Yes (GLASSES) Cancer Hx Cancer: No Psychosocial Hx Psychiatric Problems: Yes (POLYSUBSTANCE ABUSE--ALCOHOL, DRUGS) Behavioral Health Disorders: ADD/ADHD, Anxiety Integumentary HX Skin/Integumentary Disorder: No Blood Transfusions Hx Blood Disorders: No Adverse Reaction to a Blood Tr: No Family Medical History Significant Family History: No Pertinent Family Hx Family Hx: Alcoholism G8 SISTER Cardiovascular disease 19 FATHER Colon cancer G8 BROTHER Diabetes mellitus G8 BROTHER Drug abuse G8 SISTER FH: cancer 19 MOTHER (BRAIN) G8 BROTHER Glaucoma 19 FATHER Hypertension 19 FATHER Myocardial infarction 19 FATHER Psychosocial problem 19 FATHER G8 BROTHER G8 SISTER No Family History of: AIDS Abdominal aortic aneurysm Alzheimer's disease Arthritis Asthma Completed stroke Parkinson's disease Respiratory disorder Seizure disorder Severe allergy Thyroid disease Constitutional: weakness EENTM: no symptoms reported Respiratory: cough, short of breath Cardiovascular: no symptoms reported Gastrointestinal: abdominal pain (RUQ), constipation, other (Pain in right upper and left upper quadrant) Genitourinary: no symptoms reported Physical Exam Vital Signs Vital Sign - Last 12Hours 10/07/16 10/07/16 18:35 23:08 Temp 99.5 Pulse 100 Resp 18 B/P (MAP) 131/81 Pulse Ox 99 O2 Delivery Room Air Capillary Refill : Less Than 3 Seconds General Appearance: No Apparent Distress, Other (Abdomen distention) Eyes: Bilateral Eye Normal Inspection HEENT: Normal ENT Inspection Neck: Full Range of Motion Respiratory: Chest Non Tender, No Accessory Muscle Use, No Respiratory Distress , Decreased Breath Sounds Cardiovascular: Regular Rate, Rhythm, No Murmur Gastrointestinal: Distended, Other (Enlarged liver) Assessment/Plan Assessment and Plan abdominal pain. Cirrhosis. Noncompliance. Tobacco usage. Alcohol drinking. marijuana usage. Hypertension history. Esophageal varices. Hepatitis C Problems: Clinical Quality Measures DVT/VTE Risk/Contraindication: Risk Factor Score Per Nursin RFS Level Per Nursing on Admit: 2=Moderate RINKU MANDEL DO Oct 08, 2016 08:47
[2016-10-08] MEDS: PANTOPRAZOLE 40 MG/10 ML (PROTONIX) VIAL IV SCH ×2 (08:51→21:29)
[2016-10-08] MEDS ORDERED: LORazepam 1 MG (ATIVAN) TAB PO PRN (09:15)
[2016-10-08] MEDS ORDERED: KCL 10 MEQ TAB (MICRO K) PO ONE (09:15)
--- NOTE | 2016-10-08 10:50 | Diagnostic Imaging Report ---
PROCEDURE: US abdomen complete. INDICATION: Abdominal pain. TECHNIQUE: Multiple real-time merino scale sonographic images of the abdomen. CORRELATION STUDY: None FINDINGS: LIVER: 17 cm in length. There is heterogeneous echotexture throughout the liver parenchyma. There is nodular margins suggestive of underlying cirrhosis. GALLBLADDER: No definitive shadowing gallstones. There is however nonmobile echogenic debris-like findings along the posterior wall. Borderline gallbladder wall thickening at 3 mm. COMMON BILE DUCT: Largely obscured but without definitive findings to suggest significant bile duct dilatation. PANCREAS: Largely obscured by overlying bowel gas. SPLEEN: Unremarkable. ABDOMINAL AORTA: Obscured. INFERIOR VENA CAVA: Not well visualized. RIGHT KIDNEY: 11.4 cm. Unremarkable. LEFT KIDNEY: 12.4 cm. Unremarkable. ASCITES: None IMPRESSION: 1. Likely small amount of biliary sludge or debris. No definitive shadowing gallstones. Borderline gallbladder wall thickening. Biliary tree unable to be visualized. 2. Features favor probable cirrhosis. 3. Particularly midline abdominal structures largely obscured by overlying bowel gas. Dictated by: Dictated on workstation # [id number]
[2016-10-08 12:00] VITALS: BP 117/68
--- NOTE | 2016-10-08 12:57 | Consultation ---
History of Present Illness History of Present Illness Patient Consulted On(clair/time) 10/08/16 12:55 Reason for Visit: right upper quadrant pain History of Present Illness patient with hepatitis C and I'll call use. Admitted with right upper quadrant pain. Sludge in the gallbladder discovered on ultrasound examination Allergies and Home Medications Allergies Coded Allergies: codeine (Verified Allergy, Unknown, 10/07/16) Home Medications Albuterol Sulfate 18 Gm Hfa.aer.ad, 2 PUFF INH Q4H PRN for SHORTNESS OF BREATH, (Reported) Alprazolam 0.5 Mg Tablet, 0.5 MG PO DAILY PRN for ANXIETY, (Reported) Amlodipine Besylate 10 Mg Tablet, 10 MG PO DAILY, (Reported) Cetirizine HCl 10 Mg Tablet, 5 MG PO DAILY PRN for ALLERGIES, (Reported) TAKES 1/2 (10MG) TABLET Cyclobenzaprine HCl 10 Mg Tablet, 10 MG PO BID, (Reported) Famotidine 20 Mg Tablet, 20 MG PO BID, #30 Ref 0 Prescribed by: MARTIN HOLLINGSWORTH on 08/26/15 1601 Fluticasone/Salmeterol 1 Each Blst.w.dev, 1 PUFF INH BID, (Reported) Gabapentin 300 Mg Capsule, 600 MG PO HS, (Reported) Pantoprazole Sodium 40 Mg Tablet.dr, 40 MG PO DAILY, (Reported) Promethazine HCl 25 Mg Tablet, 25 MG PO TID PRN for NAUSEA, (Reported) Sucralfate 1 Gm Tablet, 1 GM PO ACHS, #120 Ref 1 Prescribed by: PAYTON DISLA on 08/18/15 1015 Tramadol HCl 50 Mg Tablet, 50 MG PO BID PRN for PAIN, (Reported) Triamcinolone Acet 15 Gm Cr, TOP TID PRN for SORES, (Reported) Past Nxzxgkx-Oyzhdq-Ujcypl Hx Patient Social History Alcohol Use: Regular Use Recreational Drug Use: Yes (Marijuana ) Drug of Choice: MARIJUANA Smoking Status: Current Everyday Smoker Type Used: Cigarettes 2nd Hand Smoke Exposure: Yes Recent Foreign Travel: No Contact w/Someone Who Travel: No Recent Infectious Disease Expo: No Recent Hopitalizations: No Physical Abuse Screen: No Sexual Abuse: No Immunizations Up To Date Tetanus Booster (TDap): More than 5yrs PED Vaccines UTD: No Date of Pneumonia Vaccine: Jul 22, 2008 Date of Influenza Vaccine: Jan 17, 2016 Seasonal Allergies Seasonal Allergies: Yes Surgeries HX Surgeries: Yes (DX LAPAROSCOPY, BACK SX; ENDOSCOPIES) Surgeries: Abdominal, Adenoidectomy, Orthopedic, Tonsillectomy Respiratory Hx Respiratory Disorders: Yes Respiratory Disorders: Asthma, COPD Cardiovascular Hx Cardiac Disorders: Yes Cardiac Disorders: Heart Murmur, Hypertension Neurological Hx Neurological Disorders: No 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 System Hx 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 Disorders: Yes Sexually Transmitted Disease: Yes HIV/AIDS: No 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 Disorders: 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 Genitourinary Hx Genitourinary Disorders: Yes Genitourinary Disorders: Kidney Stones Gastrointestinal Hx Gastrointestinal Disorders: Yes (HEP C +, gastritis) Gastrointestinal Disorders: Gastroesophageal Reflux, Gastrointestinal Bleed, Esophageal Varices, Hepatitis, Cirrhosis Musculoskeletal Hx Musculoskeletal Disorders: Yes Musculoskeletal Disorders: Arthritis, Fibromyalgia, Chronic Back Pain Endocrine Hx Endocrine Disorders: No HEENT HX ENT Disorders: Yes (GLASSES) Cancer Hx Cancer: No Psychosocial Hx Psychiatric Problems: Yes (POLYSUBSTANCE ABUSE--ALCOHOL, DRUGS) Behavioral Health Disorders: ADD/ADHD, Anxiety Integumentary HX Skin/Integumentary Disorder: No Blood Transfusions Hx Blood Disorders: No Adverse Reaction to a Blood Tr: No Family Medical History Significant Family History: No Pertinent Family Hx Family Medial History: Alcoholism G8 SISTER Cardiovascular disease 19 FATHER Colon cancer G8 BROTHER Diabetes mellitus G8 BROTHER Drug abuse G8 SISTER FH: cancer 19 MOTHER (BRAIN) G8 BROTHER Glaucoma 19 FATHER Hypertension 19 FATHER Myocardial infarction 19 FATHER Psychosocial problem 19 FATHER G8 BROTHER G8 SISTER No Family History of: AIDS Abdominal aortic aneurysm Alzheimer's disease Arthritis Asthma Completed stroke Parkinson's disease Respiratory disorder Seizure disorder Severe allergy Thyroid disease Review of Systems-General Date Seen by Provider: Oct 08, 2016 Time Seen by Provider: 11:48 Physical Exam-General Problems Physical Exam Vital Signs Vital Sign - Last 12Hours 10/07/16 10/07/16 18:35 23:08 Temp 99.5 Pulse 100 Resp 18 B/P (MAP) 131/81 Pulse Ox 99 O2 Delivery Room Air Capillary Refill : Less Than 3 Seconds General Appearance: no apparent distress HEENT: normal ENT inspection Respiratory: lungs clear Cardiovascular: regular rate, rhythm Gastrointestinal: non tender, soft Assessment/Plan Assessment/Plan Admission Diagnosis/Plan lady in sludge in the gallbladder. Hepatitis C and continued USE. NO EVIDENCE OF ACUTE CHOLECYSTITIS AND THEREFORE IT IS REASONABLE TO TREAT HER SYMPTOMATICALLY. ONCE HEPATITIS MANAGEMENT IS OPTIMIZED, CONSIDERATION FOR ELECTIVE CHOLECYSTECTOMY WOULD BE MADE Clinical Quality Measures DVT/VTE Risk/Contraindication: Risk Factor Score Per Nursin RFS Level Per Nursing on Admit: 2=Moderate Contraindications-Pharm: Other *list below* LAYA UMANA MD Oct 08, 2016 12:57 pm
[2016-10-08 16:00] VITALS: BP 118/68
[2016-10-08 20:00] VITALS: BP 117/74
[2016-10-09] VITALS: BP 114/56
[2016-10-09] MEDS: MAGNESIUM CITRATE 300 ML BTL PO SCH ×2 (01:40→10:24)
[2016-10-09] MEDS: D5 1/2 NS 1000 ML IV SOLUTION 1,000 ML IV SCH (03:18)
[2016-10-09] MEDS: LORazepam INJ 2 MG/ML (ATIVAN) VIAL IV PRN (03:46)
[2016-10-09 03:55] VITALS: BP 140/72
[2016-10-09 06:46] LABS: BASOPHILS % (AUTO) 1 % (0-10); EOSINOPHILS # (AUTO) 0.4 10^3/uL (0.0-0.3); EOSINOPHILS % (AUTO) 8 % (0-10); LYMPHOCYTES # (AUTO) 1.9 X 10^3 (1.0-4.0); LYMPHOCYTES % (AUTO) 37 % (12-44); MEAN CORPUSCULAR HEMOGLOBIN 32 PG (25-34); MEAN CORPUSCULAR HGB CONC 33 G/DL (32-36); MEAN CORPUSCULAR VOLUME 96 FL (80-99); MEAN PLATELET VOLUME 10.7 FL (7.4-10.4); MONOCYTES # (AUTO) 0.5 X 10^3 (0.0-1.0); MONOCYTES % (AUTO) 10 % (0-12); NEUTROPHILS # (AUTO) 2.2 X 10^3 (1.8-7.8); NEUTROPHILS % (AUTO) 44 % (42-75); PLATELET COUNT 120 10^3/uL (130-400); RED BLOOD COUNT 4.15 10^6/uL (4.35-5.85); RED CELL DISTRIBUTION WIDTH 13.5 % (10.0-14.5)
[2016-10-09 07:09] LABS: ALANINE AMINOTRANSFERASE 31 U/L (0-55); ALBUMIN 3.7 GM/DL (3.2-4.5); AMYLASE 57 U/L (25-125); ANION GAP 9 MMOL/L (5-14); ASPARTATE AMINO TRANSFERASE 56 U/L (5-34); BILIRUBIN,TOTAL 1.4 MG/DL (0.1-1.0); BLOOD UREA NITROGEN 5 MG/DL (7-18); BUN/CREATININE RATIO 8 (0-20); CARBON DIOXIDE 22 MMOL/L (21-32); CHLORIDE 107 MMOL/L (98-107); CREATININE SERUM 0.63 MG/DL (0.60-1.30); GFR ESTIMATED > 60; GLUCOSE 121 MG/DL (70-105); HEMOLYSIS 15 (-100-29); ICTERUS 1.1 (-100-1.9); LIPASE 18 U/L (8-78); LIPEMIA -2 (-100-49); POTASSIUM 3.9 MMOL/L (3.6-5.0); SODIUM 138 MMOL/L (135-145)
--- NOTE | 2016-10-09 07:42 | Progress Note (SOAP) ---
Subjective Time Seen by Provider: 07:30 Subjective/Events-last exam patient complaining of less abdominal. Patient abdomen soft. Patient states she had bowel movement . Patient flushed it down before nurse can evaluate. Cirrhosis. Hepatitis C. Constipation. Abdominal pain better Objective Exam Vital Signs Date Time Temp Pulse Resp B/P (MAP) Pulse Ox O2 Delivery O2 Flow Rate FiO2 10/09/16 03:55 98.0 78 18 140/72 96 Room Air 10/09/16 00:00 98.8 84 20 114/56 97 Room Air 10/08/16 21:00 Room Air 10/08/16 20:00 98.6 81 20 117/74 96 Room Air 10/08/16 16:00 98.4 88 20 118/68 95 Room Air 10/08/16 12:00 117/68 10/08/16 12:00 98.6 91 24 117/ 94 Room Air 10/08/16 08:37 Room Air 10/08/16 08:00 99.3 89 18 131/78 94 Room Air I & O 10/09/16 07:00 Intake Total 4065 ml Balance 4065 ml Capillary Refill : Less Than 3 Seconds General Appearance: No Apparent Distress, WD/WN HEENT: Normal ENT Inspection Neck: Normal Inspection Respiratory: Chest Non Tender, Normal Breath Sounds, No Accessory Muscle Use, No Respiratory Distress, Decreased Breath Sounds Cardiovascular: Regular Rate, Rhythm Gastrointestinal: distended, hepatomegaly Results Lab Laboratory Tests 10/09/16 06:34 Laboratory Tests 10/09/16 06:34: White Blood Count 5.0, Red Blood Count 4.15L, Hemoglobin 13.2, Hematocrit 40, Mean Corpuscular Volume 96, Mean Corpuscular Hemoglobin 32, Mean Corpuscular Hemoglobin Concent 33, Red Cell Distribution Width 13.5, Platelet Count 120L, Mean Platelet Volume 10.7H, Neutrophils (%) (Auto) 44, Lymphocytes (%) (Auto) 37 , Monocytes (%) (Auto) 10, Eosinophils (%) (Auto) 8, Basophils (%) (Auto) 1, Neutrophils # (Auto) 2.2, Lymphocytes # (Auto) 1.9, Monocytes # (Auto) 0.5, Eosinophils # (Auto) 0.4H, Basophils # (Auto) 0.0, Sodium Level 138, Potassium Level 3.9, Chloride Level 107, Carbon Dioxide Level 22, Anion Gap 9, Blood Urea Nitrogen 5L, Creatinine 0.63, Estimat Glomerular Filtration Rate > 60, BUN/ Creatinine Ratio 8, Glucose Level 121H, Calcium Level 9.0, Total Bilirubin 1.4H , Aspartate Amino Transf (AST/SGOT) 56H, Alanine Aminotransferase (ALT/SGPT) 31 , Alkaline Phosphatase 98, Total Protein 8.0, Albumin 3.7, Amylase Level 57, Lipase 18 Assessment/Plan Assessment/Plan Assess & Plan/Chief Complaint abdominal pain. Cirrhosis. Hepatitis C. Noncompliance. Patient states she's feeling better. abdomen softer Waiting for report of abdominal x-ray this morning Clinical Quality Measures DVT/VTE Risk/Contraindication: Risk Factor Score Per Nursin RFS Level Per Nursing on Admit: 2=Moderate Contraindications-Pharm: Other *list below* RINKU MANDEL DO Oct 09, 2016 07:42
[2016-10-09 08:30] VITALS: BP 164/67
--- NOTE | 2016-10-09 09:03 | Diagnostic Imaging Report ---
INDICATION: Abdominal pain. EXAMINATION: KUB at 4:45 AM. FINDINGS: The bowel gas pattern is normal. There are no pathologic masses or calcifications. IMPRESSION: No acute abnormalities are seen in the abdomen. Dictated by: Dictated on workstation # [id number]
[2016-10-09] MEDS ORDERED: RT-ALBUTEROL SULF 2.5 MG/3 ML PRE-MIX VIAL IH PRN (09:18)
[2016-10-09] MEDS: PANTOPRAZOLE 40 MG/10 ML (PROTONIX) VIAL IV SCH (09:45)
[2016-10-09] MEDS ORDERED: FAMO20TA5 PO (10:17)
[2016-10-09] MEDS ORDERED: SUCR1TAB36 PO (10:17)
[2016-10-09] MEDS: POLYETHYLENE GLYCOL 17 GM (MIRALAX) PACK PO SCH (10:24)
[2016-10-09] MEDS ORDERED: amLODIPine 10 MG (NORVASC) TAB PO SCH (10:30)
[2016-10-09] MEDS ORDERED: GABAPENTIN 300 MG (NEURONTIN) CAP PO SCH (21:00)
[2016-10-09] MEDS ORDERED: FAMOTIDINE 20 MG (PEPCID) TABLET PO SCH (21:00)
[2016-10-10] MEDS ORDERED: amLODIPine 10 MG (NORVASC) TAB PO SCH (09:00)
--- NOTE | 2016-10-11 07:19 | Clinic Account Progress/Dx ---
Clinic Account Progress/Dx DIAGNOSIS: Time Seen by Provider: 07:00 Diagnosis abdominal pain. Acute constipation. Chronic obstructive pulmonary disease. Hepatitis C. Hypertension history. Cannabis abuse. Nicotine dependence. .cirrhosis Noncompliance. esophageal varices. Ascites RINKU MANDEL DO Oct 11, 2016 07:19
--- OUTSIDE RECORDS SUMMARY | 2016-10-11 15:14 | XMS REPORT | Continuity of Care Document ---
Author Author [facility] Organization [facility] Address Unknown Phone Unavailable Care Team Providers Care Pop Singer Name Role Phone PCP Unavailable Source Comments Some departments are not documenting in the electronic medical record. If you do not see the information that you expected, contact Release of Information in the Health Information Management department at [phone] for further assistance in locating additional records.[facility] Active Allergies and Adverse Reactions Not on File Current Medications Not on file Active Problems Not on file Social History Tobacco Use Types Packs/Day Years Used Date Never Assessed Plan of Care Health Maintenance Due Date Last Done Comments Hepatitis C Screening 1963 Physical (Comprehensive) 1970 Exam Pertussis Vaccine 1974 Tetanus Vaccine 01/29/1980 Cervical Cancer Screening 01/29/1984 Breast Cancer Screening 2003 Colorectal Cancer 2013 Screening Influenza Vaccine 12/22/2016 Results from Last 3 Months Not on file
--- OUTSIDE RECORDS SUMMARY | 2016-10-11 15:15 | XMS REPORT | Continuity of Care Document ---
Author Author [facility] Address Unknown Phone Unavailable Allergies Active Description Code Type Severity Reaction Onset Reported/Identified Relationship to Patient Clinical Status Yes codeine Drug Allergy N/A N/A 11/09/2008 Yes codeine [id number] Drug Allergy Unknown N/A 10/07/2016 Medications Problems Date Dx Coded Attending Type Code Diagnosis Diagnosed By 07/30/2008 MIKE LEWIS DO 112.0 CANDIDIASIS OF MOUTH 07/30/2008 MIKE LEWIS DO 496 CHRONIC AIRWAY OBSTRUCTION NOT ELSEWHERE CLASSIFIED 07/30/2008 MIKE LEWIS DO 716.90 UNSPECIFIED ARTHROPATHY SITE UNSPECIFIED 07/30/2008 MIKE LEWIS DO 729.1 MYALGIA AND MYOSITIS UNSPECIFIED 08/08/2008 MIKE LEWIS DO 242.90 THYROTOXICOSIS WITHOUT GOITER OR OTHER CAUSE AND WITHOUT THYROTOXIC CRISIS OR STORM 08/08/2008 MIKE LEWIS DO 268.9 UNSPECIFIED VITAMIN D DEFICIENCY 08/08/2008 MIKE LEWIS DO 790.29 OTHER ABNORMAL GLUCOSE 11/09/2008 MIKE LEWIS DO 891.1 OPEN WOUND OF KNEE LEG (EXCEPT THIGH) AND ANKLE COMPLICATED 11/19/2008 MIKE LEWIS DO 296.4 BIPOLAR I DISORDER MOST RECENT EPISODE (OR CURRENT) MANIC 11/19/2008 MIKE LEWIS DO 729.5 PAIN IN LIMB 12/17/2008 MIKE LEWIS DO 070.54 CHRONIC HEPATITIS C WITHOUT HEPATIC COMA 12/17/2008 MIKE LEWIS DO 276.8 HYPOPOTASSEMIA 12/17/2008 MIKE LEWIS DO 296.52 BIPOLAR I DISORDER MOST RECENT EPISODE (OR CURRENT) DEPRESSED MODERATE 08/11/2009 Ot 305.1 08/11/2009 Ot 491.22 08/11/2009 Ot V58.69 08/06/2012 Ot 840.9 SPRAIN SHOULDER/ARM NOS 08/06/2012 Ot 959.2 SHLDR/UPPER ARM INJ NOS 08/06/2012 Ot E000.8 OTHER EXTERNAL CAUSE STATUS 08/06/2012 Ot E016.1 ACTIVITIES INVOLVING GARDENING AND LANDS 08/06/2012 Ot E849.0 ACCIDENT IN HOME 08/06/2012 Ot E928.9 ACCIDENT NOS 08/07/2012 Ot 719.41 JOINT PAIN-SHLDER 08/07/2012 Ot 840.9 SPRAIN SHOULDER/ARM NOS 08/07/2012 Ot E000.8 OTHER EXTERNAL CAUSE STATUS 08/07/2012 Ot E849.0 ACCIDENT IN HOME 08/07/2012 Ot E928.9 ACCIDENT NOS 03/10/2013 ANITA WASHINGTON, GOLD Baird Ot 720.2 SACROILIITIS NEC 03/10/2013 GOLD HOWARD MD Ot 724.2 LUMBAGO 03/10/2013 GOLD HOWARD MD Ot 724.8 OTHER BACK SYMPTOMS 08/12/2013 GOLD HOWARD MD Ot 719.46 JOINT PAIN-L/LEG 08/12/2013 ANITA WASHINGTON, GOLD Baird Ot 882.0 OPEN WOUND OF HAND 08/12/2013 ANITA WASHINGTON, GOLD Baird Ot E000.8 OTHER EXTERNAL CAUSE STATUS 08/12/2013 ANITA WASHINGTON, GOLD Baird Ot E880.9 FALL ON STAIR/STEP NEC 08/12/2013 ANITA WASHINGTON, GOLD Baird Ot V06.1 [id number], COMBINED [ 06/16/2014 MAYCOL GUERRA MD Ot 722.52 06/16/2014 MAYCOL GUERRA MD Ot 722.83 06/16/2014 MAYCOL GUERRA MD Ot V72.63 06/16/2014 MAYCOL GUERRA MD Ot V72.81 06/16/2014 MAYCOL GUERRA MD Ot V74.8 06/18/2014 MAYCOL GUERRA MD Ot 722.52 06/18/2014 MAYCOL GUERRA MD Ot 722.83 06/18/2014 MAYCOL GUERRA MD Ot V72.63 06/18/2014 MAYCOL GUERRA MD Ot V72.81 06/18/2014 MAYCOL GUERRA MD Ot V74.8 08/17/2014 CHARLIE WASHINGTON, MAYCOL J Ot 722.52 08/17/2014 CHARLIE WASHINGTON, MAYCOL J Ot 722.83 08/17/2014 CHARLIE WASHINGTON, MAYCOL Crandall Ot V72.63 08/17/2014 CHARLIE WASHINGTON, MAYCOL J Ot V74.8 09/11/2014 CHARLIE WASHINGTON, MAYCOL Crandall Ot 722.52 09/11/2014 CHARLIE WASHINGTON, MAYCOL Crandall Ot 722.83 09/11/2014 CHARLIE WASHINGTON, MAYCOL J Ot V72.63 09/11/2014 CHARLIE WASHINGTON, MAYCOL Crandall Ot V74.8 09/18/2014 Ot 789.01 09/18/2014 Ot 789.01 09/18/2014 Ot 722.52 09/18/2014 KATHY WASHINGTON, LORENZO Crandall Ot 401.9 09/18/2014 KATHY WASHINGTON, LORENZO Crandall Ot 786.05 09/18/2014 KATHY WASHINGTON, LORENZO Crandall Ot 786.50 09/18/2014 KATHY WASHINGTON, LORENZO Crandall Ot 401.9 09/18/2014 KATHY WASHINGTON, LORENZO J Ot 786.50 09/18/2014 CARLOS HUNT MD Ot 724.02 09/18/2014 CHARLIE WASHINGTON, MAYCOL Crandall Ot 722.52 09/18/2014 CHARLIE WASHINGTON, MAYCOL Crandall Ot 722.83 09/18/2014 CHARLIE WASHINGTON, MAYCOL Crandall Ot V72.63 09/18/2014 CHARLIE WASHINGTON, MAYCOL Crandall Ot V72.81 09/18/2014 MAYCOL GUERRA MD Ot V74.8 09/18/2014 MAYCOL GUERRA MD Ot 722.52 09/18/2014 CHARLIE WASHINGTON, MAYCOL J Ot 722.83 09/18/2014 CHARLIE WASHINGTON, MAYCOL Crandall Ot V72.63 09/18/2014 MAYCOL GUERRA MD Ot V74.8 09/23/2014 PENELOPE COLLAZO Ot 070.70 09/23/2014 PENELOPE COLLAZO Ot 305.1 09/23/2014 PENELOPE COLLAZO Ot 401.9 09/23/2014 PENELOPE COLLAZO Ot 496 09/23/2014 PENELOPE COLLAZO Ot 785.1 09/28/2014 WIL PA, PENELOPE Sandy Ot 070.70 09/28/2014 WIL PA, PENELOPE Sandy Ot 305.1 09/28/2014 WIL PA, PENELOPE Sandy Ot 401.9 09/28/2014 WIL PA, PENELOPE Sandy Ot 496 09/28/2014 WIL PA, PENELOPE Sandy Ot 785.1 10/16/2014 JESS WASHINGTON, AROLDO Salomon Ot 840.9 SPRAIN SHOULDER/ARM NOS 10/16/2014 JESS WASHINGTON, AROLDO Salomon Ot 959.2 SHLDR/UPPER ARM INJ NOS 10/16/2014 JESS WASHINGTON, AROLDO Salomon Ot E000.8 OTHER EXTERNAL CAUSE STATUS 10/16/2014 JESS WASHINGTON, AROLDO Salomon Ot E849.0 ACCIDENT IN HOME 10/16/2014 AROLDO MERCADO MD Ot E880.9 FALL ON STAIR/STEP NEC 11/25/2014 WIL PA, PENELOPE Sandy Ot 070.70 11/25/2014 WIL PA, PENELOPE Sandy Ot 305.1 11/25/2014 WIL PA, PENELOPE Sandy Ot 401.9 11/25/2014 WIL PA, PENELOPE Sandy Ot 496 11/25/2014 WIL PA, PENELOPE Sandy Ot 785.1 12/01/2014 WIL PA, PENELOPE Sandy Ot 070.70 12/01/2014 WIL PA, PENELOPE Sandy Ot 305.1 12/01/2014 WIL PA, PENELOPE Sandy Ot 401.9 12/01/2014 WIL PA, PENELOPE Sandy Ot 496 12/01/2014 WIL PA, PENELOPE Sandy Ot 785.1 12/20/2014 WIL PA, PENELOPE Sandy Ot 070.70 UNSPECIFIED VIRAL HEPATITIS C WITHOUT HE 12/20/2014 WIL PA, PENELOPE Sandy Ot 305.1 TOBACCO USE DISORDER 12/20/2014 WIL PA, PENELOPE Sandy Ot 401.9 HYPERTENSION NOS 12/20/2014 WIL PA, PENELOPE Sandy Ot 496 CHR AIRWAY OBSTRUCT NEC 12/20/2014 WIL PERALTA PENELOPE Du Ot 785.1 PALPITATIONS 12/22/2014 RINKU MANDEL DO Ot 715.35 12/29/2014 Ot 070.70 12/29/2014 Ot 491.20 12/29/2014 RINKU MANDEL DO Ot 715.35 01/12/2015 Ot 070.70 01/12/2015 Ot 491.20 01/19/2015 IVY HARDY SENIOR HR MANAGER Ot 070.70 UNSPECIFIED VIRAL HEPATITIS C WITHOUT HE 01/19/2015 IVY HARDY SENIOR HR MANAGER Ot 530.81 ESOPHAGEAL REFLUX 01/19/2015 IVY HARDY SENIOR HR MANAGER Ot 573.8 LIVER DISORDERS NEC 01/19/2015 IVY HARDY SENIOR HR MANAGER Ot 780.60 FEVER, UNSPECIFIED 01/19/2015 IVY HARDY SENIOR HR MANAGER Ot 789.09 ABDOMINAL PAIN, OTHER SPECIFIED SITE 01/19/2015 IVY HARDY SENIOR HR MANAGER Ot V58.69 OTH MED,LT,CURRENT USE 01/25/2015 ANITA WASHINGTON, GOLD Baird Ot B19.20 UNSPECIFIED VIRAL HEPATITIS C WITHOUT HE 01/25/2015 ANITA WASHINGTON, GOLD Baird Ot R10.84 GENERALIZED ABDOMINAL PAIN 01/26/2015 Ot 070.70 01/26/2015 Ot 491.20 03/05/2015 TEQUILA MARINO RINKU Nakul Ot K76.9 03/10/2015 TEQUILA MARINORINKU Ot K76.9 03/31/2015 TEQUILA MARINO RINKU Nakul Ot K74.60 04/06/2015 TEQUILA MARINORINKU Ot K74.60 04/26/2015 AROLDO MERCADO MD Ot F10.10 ALCOHOL ABUSE, UNCOMPLICATED 04/26/2015 AROLDO MERCADO MD Ot F11.10 OPIOID ABUSE, UNCOMPLICATED 04/26/2015 AROLDO MERCADO MD Ot F12.10 CANNABIS ABUSE, UNCOMPLICATED 04/26/2015 AROLDO MERCADO MD Ot F17.210 NICOTINE DEPENDENCE, CIGARETTES, UNCOMPL 04/26/2015 AROLDO MERCADO MD Ot K74.60 UNSPECIFIED CIRRHOSIS OF LIVER 04/26/2015 AROLDO MERCADO MD Ot K76.9 LIVER DISEASE, UNSPECIFIED 04/26/2015 AROLDO MERCADO MD, Ot S39.012A STRAIN OF MUSCLE, FASCIA AND TENDON OF L 04/26/2015 AROLDO MERCADO MD Ot W01.0XXA FALL SAME LEV FROM SLIP/TRIP W/O STRIKE 04/26/2015 AROLDO MERCADO MD Ot Y92.002 BATHRM OF [facility] NON-INSTITUT RESDNCE SNGL 04/26/2015 AROLDO MERCADO MD Ot Y99.8 OTHER EXTERNAL CAUSE STATUS 05/05/2015 DAGOBERTO WOMACK DO Ot M54.5 LOW BACK PAIN 05/05/2015 DAGOBERTO WOMACK DO Ot Z53.21 PROC/TRTMT NOT CRD OUT D/T PT LV BEF SEE 08/15/2015 GOYO PARK DO Ot K92.0 HEMATEMESIS 08/15/2015 GOYO PARK DO, Ot Z53.21 PROC/TRTMT NOT CRD OUT D/T PT LV BEF SEE 08/17/2015 RINKU MANDEL DO Ot B19.20 UNSPECIFIED VIRAL HEPATITIS C WITHOUT HE 08/17/2015 RINKU MANDEL DO Ot F17.210 NICOTINE DEPENDENCE, CIGARETTES, UNCOMPL 08/17/2015 RINKU MANDEL DO Ot F41.9 ANXIETY DISORDER, UNSPECIFIED 08/17/2015 RINKU MANDEL DO Ot F90.9 ATTENTION-DEFICIT HYPERACTIVITY DISORDER 08/17/2015 RINKU MANDEL DO Ot I10 ESSENTIAL (PRIMARY) HYPERTENSION 08/17/2015 RINKU MANDEL DO Ot 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 MEDICAL TR 08/25/2015 Ot 789.01 ABDOMINAL PAIN, RIGHT UPPER QUADRANT 08/25/2015 Ot 789.01 ABDOMINAL PAIN, RIGHT UPPER QUADRANT 08/25/2015 Ot 722.52 LUMB/LUMBOSAC DISC DEGEN 08/25/2015 KATHY WASHINGTON, LORENZO Crandall Ot 401.9 HYPERTENSION NOS 08/25/2015 KATHY WASHINGTON, LORENZO Crandall Ot 786.05 SHORTNESS OF BREATH 08/25/2015 LORENZO CHAVEZ MD Ot 786.50 CHEST PAIN NOS 08/25/2015 KATHY WASHINGTON, LORENZO Crandall Ot 401.9 HYPERTENSION NOS 08/25/2015 KATHY WASHINGTON, LORENZO Crandall Ot 786.50 CHEST PAIN NOS 08/25/2015 MARILEE WASHINGTON, CARLOS Salomon Ot 724.02 SPINAL STENOSIS, LUMBAR REG, W/OUT NEURO 08/25/2015 MAYCOL GUERRA MD Ot 722.52 LUMB/LUMBOSAC DISC DEGEN 08/25/2015 MAYCOL GUERRA MD Ot 722.83 POSTLAMINECT SYND-LUMBAR 08/25/2015 MAYCOL GUERRA MD Ot V72.63 PRE-PROCEDURAL LABORATORY EXAMINATION 08/25/2015 MAYCOL GUERRA MD Ot V72.81 ISCP-[id number] CARDIOVASCULAR 08/25/2015 MAYCOL GUERRA MD Ot V74.8 SCREEN-BACTERIAL DIS NEC 08/25/2015 MAYCOL GUERRA MD Ot 722.52 LUMB/LUMBOSAC DISC DEGEN 08/25/2015 MAYCOL GUERRA MD Ot 722.83 POSTLAMINECT SYND-LUMBAR 08/25/2015 MAYCOL GUERRA MD Ot V72.63 PRE-PROCEDURAL LABORATORY EXAMINATION 08/25/2015 MAYCOL GUERRA MD Ot V74.8 SCREEN-BACTERIAL DIS NEC 08/25/2015 RINKU MANDEL DO Ot 715.35 LOC OSTEOARTH NOS-PELVIS 08/25/2015 PENELOPE COLLAZO Ot 070.70 UNSPECIFIED VIRAL HEPATITIS C WITHOUT HE 08/25/2015 PENELOPE COLLAZO Ot 305.1 TOBACCO USE DISORDER 08/25/2015 PENELOPE COLLAZO Ot 401.9 HYPERTENSION NOS 08/25/2015 PENELOPE COLLAZO Ot 496 CHR AIRWAY OBSTRUCT NEC 08/25/2015 PENELOPE COLLAZO Ot 785.1 PALPITATIONS 08/25/2015 Ot 070.70 UNSPECIFIED VIRAL HEPATITIS C WITHOUT HE 08/25/2015 Ot 491.20 OBSTR CHRONIC BRONCHITIS, W/O EXACERBATI 08/25/2015 RINKU MANDEL DO Ot R93.5 ABN FINDINGS ON DX IMAGING OF ABD REGION 08/25/2015 RINKU MANDEL DO Ot K76.9 LIVER DISEASE, UNSPECIFIED 08/25/2015 RINKU MANDEL DO Ot K74.60 UNSPECIFIED CIRRHOSIS OF LIVER 08/26/2015 ANITA WASHINGTON, GOLD Baird Ot B19.20 UNSPECIFIED VIRAL HEPATITIS C WITHOUT HE 08/26/2015 GOLD HOWARD MD Ot F10.10 ALCOHOL ABUSE, UNCOMPLICATED 08/26/2015 GOLD HOWARD MD Ot F12.10 CANNABIS ABUSE, UNCOMPLICATED 08/26/2015 GOLD HOWARD MD Ot F17.210 NICOTINE DEPENDENCE, CIGARETTES, UNCOMPL 08/26/2015 GOLD HOWARD MD Ot I85.00 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EDING 08/26/2015 GOLD HOWARD MD Ot K29.70 GASTRITIS, UNSPECIFIED, WITHOUT BLEEDING 08/26/2015 GOLD HOWARD MD Ot K44.9 DIAPHRAGMATIC HERNIA WITHOUT OBSTRUCTION 08/26/2015 GOLD HOWARD MD Ot R11.2 NAUSEA WITH VOMITING, UNSPECIFIED 08/26/2015 GOLD HOWARD MD Ot B19.20 UNSPECIFIED VIRAL HEPATITIS C WITHOUT HE 08/26/2015 GOLD HOWARD MD Ot F10.10 ALCOHOL ABUSE, UNCOMPLICATED 08/26/2015 GOLD HOWARD MD Ot F12.10 CANNABIS ABUSE, UNCOMPLICATED 08/26/2015 GOLD HOWARD MD Ot F17.210 NICOTINE DEPENDENCE, CIGARETTES, UNCOMPL 08/26/2015 GOLD HOWARD MD Ot I85.00 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EDING 08/26/2015 GOLD HOWARD MD Ot K29.70 GASTRITIS, UNSPECIFIED, WITHOUT BLEEDING 08/26/2015 GOLD HOWARD MD Ot K44.9 DIAPHRAGMATIC HERNIA WITHOUT OBSTRUCTION 08/26/2015 GOLD HOWARD MD Ot R11.2 NAUSEA WITH VOMITING, UNSPECIFIED 08/26/2015 MARTIN ACUNA Ot F12.10 CANNABIS ABUSE, UNCOMPLICATED 08/26/2015 MARTIN ACUNA Ot F17.210 NICOTINE DEPENDENCE, CIGARETTES, UNCOMPL 08/26/2015 MARTIN ACUNA Ot F41.9 ANXIETY DISORDER, UNSPECIFIED 08/26/2015 MARTIN ACUNA Ot K29.70 GASTRITIS, UNSPECIFIED, WITHOUT BLEEDING 08/26/2015 MARTIN ACUNA Ot K74.60 UNSPECIFIED CIRRHOSIS OF LIVER 08/26/2015 MARTIN ACUNA Ot R59.0 LOCALIZED ENLARGED LYMPH NODES 08/26/2015 MARTIN ACUNA Ot Z91.19 PATIENT'S NONCOMPLIANCE W OT MEDICAL TR 08/27/2015 MARTIN ACUNA Ot F12.10 CANNABIS ABUSE, UNCOMPLICATED 08/27/2015 MARTIN ACUNA Ot F17.210 NICOTINE DEPENDENCE, CIGARETTES, UNCOMPL 08/27/2015 MARTIN ACUNA Ot F41.9 ANXIETY DISORDER, UNSPECIFIED 08/27/2015 MARTIN ACUNA Ot K29.70 GASTRITIS, UNSPECIFIED, WITHOUT BLEEDING 08/27/2015 MARTIN ACUNA Ot K74.60 UNSPECIFIED CIRRHOSIS OF LIVER 08/27/2015 MARTIN ACUNA Ot R59.0 LOCALIZED ENLARGED LYMPH NODES 08/27/2015 MARTIN ACUNA Ot Z91.19 PATIENT'S NONCOMPLIANCE W [facility] MEDICAL TR 09/16/2015 GOLD HOWARD MD Ot B19.20 UNSPECIFIED VIRAL HEPATITIS C WITHOUT HE 09/16/2015 GOLD HOWARD MD Ot F10.10 ALCOHOL ABUSE, UNCOMPLICATED 09/16/2015 GOLD HOWARD MD Ot F12.10 CANNABIS ABUSE, UNCOMPLICATED 09/16/2015 GOLD HOWARD MD Ot F17.210 NICOTINE DEPENDENCE, CIGARETTES, UNCOMPL 09/16/2015 GOLD HOWARD MD Ot I85.00 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EDING 09/16/2015 GOLD HOWRAD MD Ot K29.70 GASTRITIS, UNSPECIFIED, WITHOUT BLEEDING 09/16/2015 GOLD HOWARD MD Ot K44.9 DIAPHRAGMATIC HERNIA WITHOUT OBSTRUCTION 09/16/2015 GOLD HOWARD MD Ot R11.2 NAUSEA WITH VOMITING, UNSPECIFIED 10/22/2015 AROLDO MERCADO MD Ot F10.20 ALCOHOL DEPENDENCE, UNCOMPLICATED 10/22/2015 AROLDO MERCADO MD Ot R10.13 EPIGASTRIC PAIN 10/22/2015 AROLDO MERCADO MD Ot R11.2 NAUSEA WITH VOMITING, UNSPECIFIED 11/09/2015 IVY HARDY APRN Ot B19.20 UNSPECIFIED VIRAL HEPATITIS C WITHOUT HE 11/09/2015 HARDY, PETER J SENIOR HR MANAGER Ot 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 MEDICAL TR 11/22/2015 GOYO PARK DO Ot K92.0 HEMATEMESIS 11/22/2015 GOYO PARK DO Ot Z53.21 PROC/TRTMT NOT CRD OUT D/T PT LV BEF SEE 11/24/2015 Ot 789.01 ABDOMINAL PAIN, RIGHT UPPER QUADRANT 11/24/2015 Ot 789.01 ABDOMINAL PAIN, RIGHT UPPER QUADRANT 11/24/2015 Ot 722.52 LUMB/LUMBOSAC DISC DEGEN 11/24/2015 LORENZO CHAVEZ MD Ot 401.9 HYPERTENSION NOS 11/24/2015 LORENZO CHAVEZ MD Ot 786.05 SHORTNESS OF BREATH 11/24/2015 LORENZO CHAVEZ MD Ot 786.50 CHEST PAIN NOS 11/24/2015 LORENZO CHAVEZ MD Ot 401.9 HYPERTENSION NOS 11/24/2015 KATHY WASHINGTON, LORENZO Crandall Ot 786.50 CHEST PAIN NOS 11/24/2015 MARILEE WASHINGTON, CARLOS Salomon Ot 724.02 SPINAL STENOSIS, LUMBAR REG, W/OUT NEURO 11/24/2015 MAYCOL GUERRA MD Ot 722.52 LUMB/LUMBOSAC DISC DEGEN 11/24/2015 MAYCOL GUERRA MD Ot 722.83 POSTLAMINECT SYND-LUMBAR 11/24/2015 MAYCOL GUERRA MD Ot V72.63 PRE-PROCEDURAL LABORATORY EXAMINATION 11/24/2015 MAYCOL GUERRA MD Ot V72.81 [id number] CARDIOVASCULAR 11/24/2015 MAYCOL GUERRA MD Ot V74.8 SCREEN-BACTERIAL DIS NEC 11/24/2015 MAYCOL GUERRA MD Ot 722.52 LUMB/LUMBOSAC DISC DEGEN 11/24/2015 MAYCOL GUERRA MD Ot 722.83 POSTLAMINECT SYND-LUMBAR 11/24/2015 MAYCOL GUERRA MD Ot V72.63 PRE-PROCEDURAL LABORATORY EXAMINATION 11/24/2015 MAYCOL GUERRA MD Ot V74.8 SCREEN-BACTERIAL DIS NEC 11/24/2015 RINKU MANDEL DO Ot 715.35 LOC OSTEOARTH NOS-PELVIS 11/24/2015 PENELOPE COLLAZO Ot 070.70 UNSPECIFIED VIRAL HEPATITIS C WITHOUT HE 11/24/2015 PENELOPE COLLAZO Ot 305.1 TOBACCO USE DISORDER 11/24/2015 PENELOPE COLLAZO Ot 401.9 HYPERTENSION NOS 11/24/2015 PENELOPE COLLAZO Ot 496 CHR AIRWAY OBSTRUCT NEC 11/24/2015 PENELOPE COLLAZO Ot 785.1 PALPITATIONS 11/24/2015 Ot 070.70 UNSPECIFIED VIRAL HEPATITIS C WITHOUT HE 11/24/2015 Ot 491.20 OBSTR CHRONIC BRONCHITIS, W/O EXACERBATI 11/24/2015 RINKU MANDEL DO Ot R93.5 ABN FINDINGS ON DX IMAGING OF ABD REGION 11/24/2015 RINKU MANDEL DO Ot K76.9 LIVER DISEASE, UNSPECIFIED 11/24/2015 RINKU MANDEL DO Ot K74.60 UNSPECIFIED CIRRHOSIS OF LIVER 11/25/2015 TEQUILA MARINO, RINKU Mota Ot S19.9XXA UNSPECIFIED INJURY OF NECK, INITIAL ENCO 11/25/2015 TEQUILA DO, RINKU Mota Ot W19.XXXA UNSPECIFIED FALL, INITIAL ENCOUNTER 11/25/2015 TEQUILA MARINO, RINKU Mota Ot Y99.8 OTHER EXTERNAL CAUSE STATUS 12/03/2015 RUBENDER DO, RINKU Mota Ot S19.9XXA UNSPECIFIED INJURY OF NECK, INITIAL ENCO 12/03/2015 TEQUILA DO, RINKU Mota Ot W19.XXXA UNSPECIFIED FALL, INITIAL ENCOUNTER 12/03/2015 TEQUILA DO, RINKU Mota Ot Y99.8 OTHER EXTERNAL CAUSE STATUS 12/17/2015 RUBENDER DO, RINKU Mota Ot S19.9XXA UNSPECIFIED INJURY OF NECK, INITIAL ENCO 12/17/2015 TEQUILA DO, RINKU Mota Ot W19.XXXA UNSPECIFIED FALL, INITIAL ENCOUNTER 12/17/2015 TEQUILA MARINO, RINKU Mota Ot Y99.8 OTHER EXTERNAL CAUSE STATUS 12/28/2015 TEQUILA DO, RINKU Mota Ot S19.9XXA UNSPECIFIED INJURY OF NECK, INITIAL ENCO 12/28/2015 TEQUILA DO, RINKU Mota Ot W19.XXXA UNSPECIFIED FALL, INITIAL ENCOUNTER 12/28/2015 TEQUILA MARINO, RINKU Mota Ot Y99.8 OTHER EXTERNAL CAUSE STATUS 01/18/2016 AROLDO MERCADO MD Ot E86.0 DEHYDRATION 01/18/2016 AROLDO MERCADO MD Ot F17.210 NICOTINE DEPENDENCE, CIGARETTES, UNCOMPL 01/18/2016 AROLDO MERCADO MD Ot F41.9 ANXIETY DISORDER, UNSPECIFIED 01/18/2016 AROLDO MERCADO MD Ot J40 BRONCHITIS, NOT SPECIFIED ACUTE OR CH 01/18/2016 AROLDO MERCADO MD Ot R00.0 TACHYCARDIA, UNSPECIFIED 01/18/2016 AROLDO MERCADO MD Ot R11.2 NAUSEA WITH VOMITING, UNSPECIFIED 01/18/2016 AROLDO MERCADO MD Ot R53.1 WEAKNESS 01/18/2016 AROLDO MERCADO MD Ot R91.8 OTHER NONSPECIFIC ABNORMAL FINDING OF CORI 01/18/2016 AROLDO MERCADO MD Ot Z79.899 OTHER SPECIAL PROCEDURES NURSE (CURRENT) DRUG THERAPY 01/19/2016 AROLDO MERCADO MD Ot E86.0 DEHYDRATION 01/19/2016 AROLDO MERCADO MD Ot F17.210 NICOTINE DEPENDENCE, CIGARETTES, UNCOMPL 01/19/2016 AROLDO MERCADO MD Ot F41.9 ANXIETY DISORDER, UNSPECIFIED 01/19/2016 AROLDO MERCADO MD Ot J40 BRONCHITIS, NOT SPECIFIED ACUTE OR CH 01/19/2016 AROLDO MERCADO MD Ot R00.0 TACHYCARDIA, UNSPECIFIED 01/19/2016 AROLDO MERCADO MD Ot R11.2 NAUSEA WITH VOMITING, UNSPECIFIED 01/19/2016 AROLDO MERCADO MD Ot R53.1 WEAKNESS 01/19/2016 AROLDO MERCADO MD Ot R91.8 OTHER NONSPECIFIC ABNORMAL FINDING OF CORI 01/19/2016 AROLDO MERCADO MD Ot Z79.899 OTHER SKILLED NURSING (CURRENT) DRUG THERAPY 01/25/2016 AROLDO MERCADO MD Ot E86.0 DEHYDRATION 01/25/2016 AROLDO MERCADO MD Ot F17.210 NICOTINE DEPENDENCE, CIGARETTES, UNCOMPL 01/25/2016 AROLDO MERCADO MD Ot F41.9 ANXIETY DISORDER, UNSPECIFIED 01/25/2016 AROLDO MERCADO MD Ot J40 BRONCHITIS, NOT SPECIFIED ACUTE OR CH 01/25/2016 AROLDO MERCADO MD Ot R00.0 TACHYCARDIA, UNSPECIFIED 01/25/2016 AROLDO MERCADO MD Ot R11.2 NAUSEA WITH VOMITING, UNSPECIFIED 01/25/2016 AROLDO MERCADO MD Ot R53.1 WEAKNESS 01/25/2016 AROLDO MERCADO MD Ot R91.8 OTHER NONSPECIFIC ABNORMAL FINDING OF CORI 01/25/2016 AROLDO MERCADO MD Ot Z79.899 OTHER SPECIAL PROCEDURES NURSE (CURRENT) DRUG THERAPY 01/25/2016 Ot 789.01 ABDOMINAL PAIN, RIGHT UPPER QUADRANT 01/25/2016 Ot 789.01 ABDOMINAL PAIN, RIGHT UPPER QUADRANT 01/25/2016 Ot 722.52 LUMB/LUMBOSAC DISC DEGEN 01/25/2016 LORENZO CHAVEZ MD Ot 401.9 HYPERTENSION NOS 01/25/2016 LORENZO CHAVEZ MD Ot 786.05 SHORTNESS OF BREATH 01/25/2016 LORENZO CHAVEZ MD Ot 786.50 CHEST PAIN NOS 01/25/2016 LORENZO CHAVEZ MD Ot 401.9 HYPERTENSION NOS 01/25/2016 LORENZO CHAVEZ MD Ot 786.50 CHEST PAIN NOS 01/25/2016 MARILEE WASHINGTON, CARLOS Salomon Ot 724.02 SPINAL STENOSIS, LUMBAR REG, W/OUT NEURO 01/25/2016 MAYCOL GUERRA MD Ot 722.52 LUMB/LUMBOSAC DISC DEGEN 01/25/2016 MAYCOL GUERRA MD Ot 722.83 POSTLAMINECT SYND-LUMBAR 01/25/2016 MAYCOL GUERRA MD Ot V72.63 PRE-PROCEDURAL LABORATORY EXAMINATION 01/25/2016 MAYCOL GUERRA MD, Ot V72.81 UBFU-LMA-TMVOUUFAE CARDIOVASCULAR 01/25/2016 MAYCOL GUERRA MD, Ot V74.8 SCREEN-BACTERIAL DIS NEC 01/25/2016 MAYCOL GUERRA MD Ot 722.52 LUMB/LUMBOSAC DISC DEGEN 01/25/2016 MAYCOL GUERRA MD Ot 722.83 POSTLAMINECT SYND-LUMBAR 01/25/2016 MAYCOL GUERRA MD, Ot V72.63 PRE-PROCEDURAL LABORATORY EXAMINATION 01/25/2016 MAYCOL GUERRA MD, Ot V74.8 SCREEN-BACTERIAL DIS NEC 01/25/2016 RINKU MANDEL DO Ot 715.35 LOC OSTEOARTH NOS-PELVIS 01/25/2016 PENELOPE COLLAZO Ot 070.70 UNSPECIFIED VIRAL HEPATITIS C WITHOUT HE 01/25/2016 PENELOPE COLLAZO Ot 305.1 TOBACCO USE DISORDER 01/25/2016 PENELOPE COLLAZO Ot 401.9 HYPERTENSION NOS 01/25/2016 PENELOPE COLLAZO Ot 496 CHR AIRWAY OBSTRUCT NEC 01/25/2016 PENELOPE COLLAZO Ot 785.1 PALPITATIONS 01/25/2016 Ot 070.70 UNSPECIFIED VIRAL HEPATITIS C WITHOUT HE 01/25/2016 Ot 491.20 OBSTR CHRONIC BRONCHITIS, W/O EXACERBATI 01/25/2016 RINKU MANDEL DO Ot R93.5 ABN FINDINGS ON DX IMAGING OF ABD REGION 01/25/2016 RINKU MANDEL DO Ot K76.9 LIVER DISEASE, UNSPECIFIED 01/25/2016 RINKU MANDEL DO Ot K74.60 UNSPECIFIED CIRRHOSIS OF LIVER 01/25/2016 RINKU MANDEL DO Ot S19.9XXA UNSPECIFIED INJURY OF NECK, INITIAL ENCO 01/25/2016 RINKU MANDEL DO Ot W19.XXXA UNSPECIFIED FALL, INITIAL ENCOUNTER 01/25/2016 RINKU MANDEL DO Ot Y99.8 OTHER EXTERNAL CAUSE STATUS 02/09/2016 RINKU MANDEL DO Ot K74.60 UNSPECIFIED CIRRHOSIS OF LIVER 02/09/2016 RINKU MANDEL DO Ot R91.8 OTHER NONSPECIFIC ABNORMAL FINDING OF CORI 02/19/2016 VU MARINO DAGOBERTO K Ot F12.10 CANNABIS ABUSE, UNCOMPLICATED 02/19/2016 VU MARINO DAGOBERTO K Ot F13.10 SEDATIVE, HYPNOTIC OR ANXIOLYTIC ABUSE, 02/19/2016 VU DAGOBERTO K Ot N39.0 URINARY TRACT INFECTION, SITE NOT SPECIF 02/19/2016 VU DAGOBERTO K Ot N76.0 ACUTE VAGINITIS 02/19/2016 VU DAGOBERTO K Ot R30.0 DYSURIA 02/21/2016 VU DAGOBERTO K Ot F12.10 CANNABIS ABUSE, UNCOMPLICATED 02/21/2016 VU DAGOBERTO K Ot F13.10 SEDATIVE, HYPNOTIC OR ANXIOLYTIC ABUSE, 02/21/2016 VU DAGOBERTO K Ot N39.0 URINARY TRACT INFECTION, SITE NOT SPECIF 02/21/2016 VU DAGOBERTO K Ot N76.0 ACUTE VAGINITIS 02/21/2016 VU DAGOBERTO K Ot R30.0 DYSURIA 02/26/2016 PJ TREJO Ot F17.210 NICOTINE DEPENDENCE, CIGARETTES, UNCOMPL 02/26/2016 PJ TREJO [employer]PER[employer] Ot I10 ESSENTIAL (PRIMARY) HYPERTENSION 02/26/2016 PJ TREJOP Ot M25.512 PAIN IN LEFT SHOULDER 02/26/2016 PJ TREJOP Ot M79.1 MYALGIA 02/26/2016 PJ TREJOP Ot R06.00 DYSPNEA, UNSPECIFIED 02/26/2016 PJ TREJO Ot R07.89 OTHER CHEST PAIN 02/26/2016 PJ TREJOP Ot Z79.899 OTHER SPECIAL PROCEDURES NURSE (CURRENT) DRUG THERAPY 02/28/2016 PJ TREJO [employer]IC[employer]ING SUPERVISOR Ot F17.210 NICOTINE DEPENDENCE, CIGARETTES, UNCOMPL 02/28/2016 PJ TREJO [employer] SUPERVISOR Ot I10 ESSENTIAL (PRIMARY) HYPERTENSION 02/28/2016 PJ TREJO [employer] SUPERVISOR Ot M25.512 PAIN IN LEFT SHOULDER 02/28/2016 PJ TREJOP Ot M79.1 MYALGIA 02/28/2016 MAYAPJ MiddletonP Ot R06.00 DYSPNEA, UNSPECIFIED 02/28/2016 MAYAPJ INS[employer]IC[employer]ING SUPERVISOR Ot R07.89 OTHER CHEST PAIN 02/28/2016 MAYA PJ LAYP Ot Z79.899 OTHER SPECIAL PROCEDURES NURSE (CURRENT) DRUG THERAPY 02/29/2016 RINKU MANDEL DO Ot K74.60 UNSPECIFIED CIRRHOSIS OF LIVER 02/29/2016 RINKU MANDEL DO Ot R91.8 OTHER NONSPECIFIC ABNORMAL FINDING OF CORI 03/13/2016 RINKU MANDEL DO Ot K74.60 UNSPECIFIED CIRRHOSIS OF LIVER 03/13/2016 RINKU MANDEL DO Ot R91.8 OTHER NONSPECIFIC ABNORMAL FINDING OF CORI 05/08/2016 MAYA PJ LAYP Ot B19.20 UNSPECIFIED VIRAL HEPATITIS C WITHOUT HE 05/08/2016 MAYA PJ [employer]IC[employer]ING SUPERVISOR Ot F17.210 NICOTINE DEPENDENCE, CIGARETTES, UNCOMPL 05/08/2016 PJ TREJOP Ot I10 ESSENTIAL (PRIMARY) HYPERTENSION 05/08/2016 MAYA, PJ LAYP Ot J44.9 CHRONIC OBSTRUCTIVE PULMONARY DISEASE, U 05/08/2016 MAYAPJ MiddletonP Ot R10.13 EPIGASTRIC PAIN 05/08/2016 MAYAPJ Middleton [employer]IC[employer]ING SUPERVISOR Ot R11.2 NAUSEA WITH VOMITING, UNSPECIFIED 05/08/2016 MAYAPJ Middleton [employer]ICENSING SUPERVISOR Ot S39.012A STRAIN OF MUSCLE, FASCIA AND TENDON OF L 05/08/2016 MAYAPJ MiddletonP Ot X50.9XXA OTHER AND UNSPECIFIED OVREXRTN OR STRNOU 05/08/2016 MAYAPJ Middleton INSURANCE LICENSING SUPERVISOR Ot Y92.[address] IN [facility] (PRIVATE 05/08/2016 MAYAPJ Middleton INSURANCE LICENSING SUPERVISOR Ot Y99.8 OTHER EXTERNAL CAUSE STATUS 05/08/2016 MAYAPJ Middleton [employer] LICENSING SUPERVISOR Ot Z79.899 OTHER SPECIAL PROCEDURES NURSE (CURRENT) DRUG THERAPY 05/10/2016 PJ TREJOP Ot B19.20 UNSPECIFIED VIRAL HEPATITIS C WITHOUT HE 05/10/2016 PJ TREJOP Ot F17.210 NICOTINE DEPENDENCE, CIGARETTES, UNCOMPL 05/10/2016 MAYA PJ [employer]ICENSING SUPERVISOR Ot I10 ESSENTIAL (PRIMARY) HYPERTENSION 05/10/2016 PJ TREJOP Ot J44.9 CHRONIC OBSTRUCTIVE PULMONARY DISEASE, U 05/10/2016 PJ TREJOP Ot R10.13 EPIGASTRIC PAIN 05/10/2016 MAYA PJ [employer]ICENSING SUPERVISOR Ot R11.2 NAUSEA WITH VOMITING, UNSPECIFIED 05/10/2016 PJ TREJOP Ot S39.012A STRAIN OF MUSCLE, FASCIA AND TENDON OF L 05/10/2016 MAYAPJ INSURANCE LICENSING SUPERVISOR Ot X50.9XXA OTHER AND UNSPECIFIED OVREXRTN OR STRNOU 05/10/2016 MAYAPJ INSURANCE LICENSING SUPERVISOR Ot Y92.[address] [facility] [facility] 05/10/2016 MAYA PJ INSURANCE LICENSING SUPERVISOR Ot Y99.8 OTHER EXTERNAL CAUSE STATUS 05/10/2016 MAYAPJ INSUR[employer] LICENSING SUPERVISOR Ot Z79.899 OTHER SKILLED NURSING (CURRENT) DRUG THERAPY 09/06/2016 DAGOBERTO WOMACK DO Ot B19.20 UNSPECIFIED VIRAL HEPATITIS C WITHOUT HE 09/06/2016 DAGOBERTO WOMACK DO Ot F17.210 NICOTINE DEPENDENCE, CIGARETTES, UNCOMPL 09/06/2016 DAGOBERTO WOMACK DO Ot G89.29 OTHER CHRONIC PAIN 09/06/2016 DAGOBERTO WOMACK DO Ot I10 ESSENTIAL (PRIMARY) HYPERTENSION 09/06/2016 DAGOBERTO WOMACK DO Ot J44.9 CHRONIC OBSTRUCTIVE PULMONARY DISEASE, U 09/06/2016 DAGOBERTO WOMACK DO K Ot K29.21 ALCOHOLIC GASTRITIS WITH BLEEDING 09/06/2016 DAGOBERTO WOMACK DO Ot K70.30 ALCOHOLIC CIRRHOSIS OF LIVER WITHOUT ASC 09/06/2016 DAGOBERTO WOMACK DO Ot K76.6 PORTAL HYPERTENSION 09/06/2016 DAGOBERTO WOMACK DO Ot M54.5 LOW BACK PAIN 09/06/2016 VU DAGOBERTO MARINO Ot R04.2 HEMOPTYSIS 09/06/2016 DAGOBERTO WOMACK DO Ot Z79.899 OTHER SKILLED NURSING (CURRENT) DRUG THERAPY 09/06/2016 VU LAURA MARINOA K Ot Z91.19 PATIENT'S NONCOMPLIANCE W [facility] MEDICAL TR 09/12/2016 DAGOBERTO WOMACK DO Ot B19.20 UNSPECIFIED VIRAL HEPATITIS C WITHOUT HE 09/12/2016 DAGOBERTO WOMACK DO K Ot F17.210 NICOTINE DEPENDENCE, CIGARETTES, UNCOMPL 09/12/2016 VU DAGOBERTO MARINO K Ot G89.29 OTHER CHRONIC PAIN 09/12/2016 VU DAGOBERTO K Ot I10 ESSENTIAL (PRIMARY) HYPERTENSION 09/12/2016 VU DAGOBERTO K Ot J44.9 CHRONIC OBSTRUCTIVE PULMONARY DISEASE, U 09/12/2016 VU LAURA MARINOA K Ot K29.21 ALCOHOLIC GASTRITIS WITH BLEEDING 09/12/2016 VU MARINO DAGOBERTO K Ot K70.30 ALCOHOLIC CIRRHOSIS OF LIVER WITHOUT ASC 09/12/2016 VU MARINO DAGOBERTO K Ot K76.6 PORTAL HYPERTENSION 09/12/2016 VU DAGOBERTO K Ot M54.5 LOW BACK PAIN 09/12/2016 VU MARINO DAGOBERTO K Ot R04.2 HEMOPTYSIS 09/12/2016 VU MARINO DAGOBERTO K Ot Z79.899 OTHER SKILLED NURSING (CURRENT) DRUG THERAPY 09/12/2016 VU MARINO DAGOBERTO K Ot Z91.19 PATIENT'S NONCOMPLIANCE W [facility] MEDICAL TR 09/21/2016 AROLDO MERCADO MD Ot F17.210 NICOTINE DEPENDENCE, CIGARETTES, UNCOMPL 09/21/2016 AROLDO MERCADO MD Ot I10 ESSENTIAL (PRIMARY) HYPERTENSION 09/21/2016 AROLDO MERCADO MD, Ot J44.9 CHRONIC OBSTRUCTIVE PULMONARY DISEASE, U 09/21/2016 AROLDO MERCADO MD Ot K74.60 UNSPECIFIED CIRRHOSIS OF LIVER 09/21/2016 AROLDO MERCADO MD Ot R04.2 HEMOPTYSIS 09/21/2016 AROLDO MERCADO MD Ot S39.012A STRAIN OF MUSCLE, FASCIA AND TENDON OF L 09/21/2016 AROLDO MERCADO MD Ot X58.XXXA EXPOSURE TO OTHER SPECIFIED FACTORS , INI 09/21/2016 AROLDO MERCADO MD Ot Y99.8 OTHER EXTERNAL CAUSE STATUS 09/21/2016 AROLDO MERCADO MD, Ot Z79.899 OTHER SPECIAL PROCEDURES NURSE (CURRENT) DRUG THERAPY 09/26/2016 GELLENDER DO, RINKU Mota Ot Z12.31 ENCNTR SCREEN MAMMOGRAM FOR MALIGNANT NE 09/28/2016 GELLENDER DO, RINKU Mota Ot Z12.31 ENCNTR SCREEN MAMMOGRAM FOR MALIGNANT NE 10/02/2016 GELLENDER DO, RINKU Mota Ot N95.0 POSTMENOPAUSAL BLEEDING 10/03/2016 GELLENDER DO, RINKU Mota Ot Z12.31 ENCNTR SCREEN MAMMOGRAM FOR MALIGNANT NE 10/04/2016 GELLENDER DO, RINKU Mota Ot Z12.31 ENCNTR SCREEN MAMMOGRAM FOR MALIGNANT NE 10/04/2016 GELLENDER DO, RINKU Nakul Ot Z12.31 ENCNTR SCREEN MAMMOGRAM FOR MALIGNANT NE 10/07/2016 PENELOPE COLLAZO Ot 070.70 UNSPECIFIED VIRAL HEPATITIS C WITHOUT HE 10/07/2016 PENELOPE COLLAZO Ot 305.1 TOBACCO USE DISORDER 10/07/2016 PENELOPE COLLAZO Ot 401.9 HYPERTENSION NOS 10/07/2016 PENELOPE COLLAZO Ot 496 CHR AIRWAY OBSTRUCT NEC 10/07/2016 PENELOPE COLLAZO Ot 785.1 PALPITATIONS Procedures Code Description [place] [address] A1C 08/20/2008 58187 T4 FREE 2008 16038 T3 TOTAL 2008 [id number] 08/17/2015 Results Test Result Range Complete blood count (CBC) with automated white blood cell (WBC) differential - 01/18/16 13:52 Blood leukocytes automated count (number/volume) 7.5 10*3/ uL 4.3-11.0 Blood erythrocytes automated count (number/volume) 4.19 10*6 /uL 4.35-5.85 Venous blood hemoglobin measurement (mass/volume) 14.0 g/dL 11.5-16.0 Blood hematocrit (volume fraction) 40 % 35-52 Automated erythrocyte mean corpuscular volume 94 [foz_us] 80-99 Automated erythrocyte mean corpuscular hemoglobin (mass per erythrocyte) 33 pg 25-34 Automated erythrocyte mean corpuscular hemoglobin concentration measurement ( mass/volume) 35 g/dL 32-36 Automated erythrocyte distribution width ratio 14.3 % 10.0-14.5 Automated blood platelet count (count/volume) 123 10*3/uL 130-400 Automated blood platelet mean volume measurement 10.2 [foz_ us] 7.4-10.4 Automated blood neutrophils/100 leukocytes 55 % 42-75 Automated blood lymphocytes/100 leukocytes 34 % 12-44 Blood monocytes/100 leukocytes 9 % 0-12 Automated blood eosinophils/100 leukocytes 2 % 0-10 Automated blood basophils/100 leukocytes 1 % 0-10 Blood neutrophils automated count (number/volume) 4.1 10*3 1.8-7.8 Blood lymphocytes automated count (number/volume) 2.5 10*3 1.0-4.0 Blood monocytes automated count (number/volume) 0.7 10*3 0.0-1.0 Automated eosinophil count 0.2 10*3/uL 0.0-0.3 Automated blood basophil count (count/volume) 0.1 10*3/uL 0.0-0.1 PT panel in platelet poor plasma by coagulation assay - 01/18/16 13:52 Prothrombin time (PT) in platelet poor plasma by coagulation assay 14.4 s 12.2-14.7 INR in platelet poor plasma or blood by coagulation assay 1.2 0.8-1.4 Activated partial thromboplastin time (aPTT) in platelet poor plasma bycoagulation assay - 01/18/16 13:52 Activated partial thromboplastin time (aPTT) in platelet poor plasma bycoagulation assay 34 s 24-35 Fibrin D-dimer FEU measurement in platelet poor plasma (mass/volume) - 13:52 Fibrin D-dimer FEU measurement in platelet poor plasma (mass/volume) 1.12 ug/mL 0.00-0.49 Comprehensive metabolic panel - 01/18/16 13:52 Serum or plasma sodium measurement (moles/volume) 131 mmol/ L 135-145 Serum or plasma potassium measurement (moles/volume) 3.7 mmol/L 3.6-5.0 Serum or plasma chloride measurement (moles/volume) 97 mmol/ L 98-107 Carbon dioxide 21 mmol/L 21-32 Serum or plasma anion gap determination (moles/volume) 13 mmol/L 5-14 Serum or plasma urea nitrogen measurement (mass/volume) 5 mg /dL 7-18 Serum or plasma creatinine measurement (mass/volume) 0.69 mg /dL 0.60-1.30 Serum or plasma urea nitrogen/creatinine mass ratio 7 NRG Serum or plasma creatinine measurement with calculation of estimated glomerular filtration rate > NRG Serum or plasma glucose measurement (mass/volume) 112 mg/dL 70-105 Serum or plasma calcium measurement (mass/volume) 9.3 mg/dL 8.5-10.1 Serum or plasma total bilirubin measurement (mass/volume) 1.2 mg/dL 0.1-1.0 Serum or plasma alkaline phosphatase measurement (enzymatic activity/volume) 104 U/L 40-136 Serum or plasma aspartate aminotransferase measurement (enzymatic activity/ volume) 70 U/L 5-34 Serum or plasma alanine aminotransferase measurement (enzymatic activity/volume ) 46 U/L 0-55 Serum or plasma protein measurement (mass/volume) 8.5 g/dL 6.4-8.2 Serum or plasma albumin measurement (mass/volume) 4.3 g/dL 3.2-4.5 Serum or plasma troponin i.cardiac measurement (mass/volume) - 01/18/16 13:52 Serum or plasma troponin i.cardiac measurement (mass/volume) < ng/mL <0.30 Urine drug screening test - 01/18/16 15:04 Urine phencyclidine detection by screening method NEGATIVE NEGATIVE Urine benzodiazepines detection by screening method NEGATIVE NEGATIVE Urine cocaine detection NEGATIVE NEGATIVE Urine amphetamines detection by screening method NEGATIVE NEGATIVE Urine methamphetamine detection by screening method NEGATIVE NEGATIVE Urine cannabinoids detection by screening method POSITIVE NEGATIVE Urine opiates detection by screening method NEGATIVE NEGATIVE Urine barbiturates detection NEGATIVE NEGATIVE Screening urine tricyclic antidepressants detection NEGATIVE NEGATIVE Urine methadone detection by screening method NEGATIVE NEGATIVE Urine oxycodone detection NEGATIVE NEGATIVE Urine propoxyphene detection NEGATIVE NEGATIVE Urine buprenophrine screen NEGATIVE NEGATIVE Complete urinalysis with reflex to culture - 01/18/16 15:04 Urine color determination YELLOW NRG Urine clarity determination CLEAR NRG Urine pH measurement by test strip 7 5- 9 Specific gravity of urine by test strip 1.005 1.016-1.022 Urine protein assay by test strip, semi-quantitative NEGATIVE NEGATIVE Urine glucose detection by automated test strip NEGATIVE NEGATIVE Erythrocytes detection in urine sediment by light microscopy NEGATIVE NEGATIVE Urine ketones detection by automated test strip NEGATIVE NEGATIVE Urine nitrite detection by test strip NEGATIVE NEGATIVE Urine total bilirubin detection by test strip NEGATIVE NEGATIVE Urine urobilinogen measurement by automated test strip (mass/volume) NORMAL NORMAL Urine leukocyte esterase detection by dipstick NEGATIVE NEGATIVE Automated urine sediment erythrocyte count by microscopy (number/high power field) NONE NRG Automated urine sediment leukocyte count by microscopy (number/high power field ) RARE NRG Bacteria detection in urine sediment by light microscopy NEGATIVE NRG Crystals detection in urine sediment by light microscopy NONE NRG Casts detection in urine sediment by light microscopy NONE NRG Mucus detection in urine sediment by light microscopy NEGATIVE NRG Complete urinalysis with reflex to culture NO NRG Complete urinalysis with reflex to culture - 02/19/16 22:56 Urine color determination YELLOW NRG Urine clarity determination SLIGHTLY CLOUDY NRG Urine pH measurement by test strip 6 5- 9 Specific gravity of urine by test strip 1.015 1.016-1.022 Urine protein assay by test strip, semi-quantitative NEGATIVE NEGATIVE Urine glucose detection by automated test strip NEGATIVE NEGATIVE Erythrocytes detection in urine sediment by light microscopy 2+ NEGATIVE Urine ketones detection by automated test strip NEGATIVE NEGATIVE Urine nitrite detection by test strip NEGATIVE NEGATIVE Urine total bilirubin detection by test strip NEGATIVE NEGATIVE Urine urobilinogen measurement by automated test strip (mass/volume) NORMAL NORMAL Urine leukocyte esterase detection by dipstick 3+ NEGATIVE Automated urine sediment erythrocyte count by microscopy (number/high power field) RARE NRG Automated urine sediment leukocyte count by microscopy (number/high power field ) [HPF] NRG Bacteria detection in urine sediment by light microscopy FEW NRG Squamous epithelial cells detection in urine sediment by light microscopy 0-2 NRG Crystals detection in urine sediment by light microscopy NONE NRG Casts detection in urine sediment by light microscopy NONE NRG Mucus detection in urine sediment by light microscopy NEGATIVE NRG Complete urinalysis with reflex to culture YES NRG Urine drug screening test - 02/19/16 22:56 Urine phencyclidine detection by screening method NEGATIVE NEGATIVE Urine benzodiazepines detection by screening method POSITIVE NEGATIVE Urine cocaine detection NEGATIVE NEGATIVE Urine amphetamines detection by screening method NEGATIVE NEGATIVE Urine methamphetamine detection by screening method NEGATIVE NEGATIVE Urine cannabinoids detection by screening method POSITIVE NEGATIVE Urine opiates detection by screening method NEGATIVE NEGATIVE Urine barbiturates detection NEGATIVE NEGATIVE Screening urine tricyclic antidepressants detection NEGATIVE NEGATIVE Urine methadone detection by screening method NEGATIVE NEGATIVE Urine oxycodone detection NEGATIVE NEGATIVE Urine propoxyphene detection NEGATIVE NEGATIVE Urine buprenophrine screen NEGATIVE NEGATIVE Bacterial urine culture - 02/19/16 22:56 Bacterial urine culture NG NRG Bacteria identification in genital specimen by aerobe culture - 02/19/16 23:30 Bacteria identification in genital specimen by aerobe culture NG NRG Microscopic examination by FEMI preparation - 02/19/16 23:30 Microscopic examination by FEMI preparation TNP NRG Microscopic examination by wet preparation - 02/19/16 23:30 WET PREP RESULTS 02/19/16 23:55 BY BD NRG Chlamydia trachomatis DNA detection by probe and signal amplification method - 02/19/16 23:30 Chlamydia trachomatis DNA detection by probe and target amplification method Negative Negative Neisseria gonorrhoeae DNA detection by probe and signal amplification method - 02/19/16 23:30 Gonorrhea amp DNA-urine Negative Negative Blood lactic acid measurement (moles/volume) - 02/26/16 16:30 Blood lactic acid measurement (moles/volume) 1.8 mmol/L 0.5-2.0 Complete blood count (CBC) with automated white blood cell (WBC) differential - 02/26/16 16:30 Blood leukocytes automated count (number/volume) 7.5 10*3/ uL 4.3-11.0 Blood erythrocytes automated count (number/volume) 4.20 10*6 /uL 4.35-5.85 Venous blood hemoglobin measurement (mass/volume) 14.1 g/dL 11.5-16.0 Blood hematocrit (volume fraction) 40 % 35-52 Automated erythrocyte mean corpuscular volume 96 [foz_us] 80-99 Automated erythrocyte mean corpuscular hemoglobin (mass per erythrocyte) 34 pg 25-34 Automated erythrocyte mean corpuscular hemoglobin concentration measurement ( mass/volume) 35 g/dL 32-36 Automated erythrocyte distribution width ratio 13.3 % 10.0-14.5 Automated blood platelet count (count/volume) 129 10*3/uL 130-400 Automated blood platelet mean volume measurement 11.0 [foz_ us] 7.4-10.4 Automated blood neutrophils/100 leukocytes 57 % 42-75 Automated blood lymphocytes/100 leukocytes 32 % 12-44 Blood monocytes/100 leukocytes 8 % 0-12 Automated blood eosinophils/100 leukocytes 2 % 0-10 Automated blood basophils/100 leukocytes 1 % 0-10 Blood neutrophils automated count (number/volume) 4.3 10*3 1.8-7.8 Blood lymphocytes automated count (number/volume) 2.4 10*3 1.0-4.0 Blood monocytes automated count (number/volume) 0.6 10*3 0.0-1.0 Automated eosinophil count 0.2 10*3/uL 0.0-0.3 Automated blood basophil count (count/volume) 0.0 10*3/uL 0.0-0.1 Comprehensive metabolic panel - 02/26/16 16:30 Serum or plasma sodium measurement (moles/volume) 135 mmol/ L 135-145 Serum or plasma potassium measurement (moles/volume) 4.0 mmol/L 3.6-5.0 Serum or plasma chloride measurement (moles/volume) 101 mmol /L 98-107 Carbon dioxide 20 mmol/L 21-32 Serum or plasma anion gap determination (moles/volume) 14 mmol/L 5-14 Serum or plasma urea nitrogen measurement (mass/volume) 4 mg /dL 7-18 Serum or plasma creatinine measurement (mass/volume) 0.62 mg /dL 0.60-1.30 Serum or plasma urea nitrogen/creatinine mass ratio 6 NRG Serum or plasma creatinine measurement with calculation of estimated glomerular filtration rate > NRG Serum or plasma glucose measurement (mass/volume) 95 mg/dL 70-105 Serum or plasma calcium measurement (mass/volume) 9.4 mg/dL 8.5-10.1 Serum or plasma total bilirubin measurement (mass/volume) 0.9 mg/dL 0.1-1.0 Serum or plasma alkaline phosphatase measurement (enzymatic activity/volume) 98 U/L 40-136 Serum or plasma aspartate aminotransferase measurement (enzymatic activity/ volume) 34 U/L 5-34 Serum or plasma alanine aminotransferase measurement (enzymatic activity/volume ) 21 U/L 0-55 Serum or plasma protein measurement (mass/volume) 8.1 g/dL 6.4-8.2 Serum or plasma albumin measurement (mass/volume) 3.8 g/dL 3.2-4.5 Bacterial blood culture - 02/26/16 16:30 Bacterial blood culture NG NRG Bacterial blood culture - 02/26/16 16:58 Bacterial blood culture NG NRG Complete urinalysis with reflex to culture - 02/26/16 17:54 Urine color determination YELLOW NRG Urine clarity determination CLEAR NRG Urine pH measurement by test strip 7 5- 9 Specific gravity of urine by test strip 1.005 1.016-1.022 Urine protein assay by test strip, semi-quantitative NEGATIVE NEGATIVE Urine glucose detection by automated test strip NEGATIVE NEGATIVE Erythrocytes detection in urine sediment by light microscopy NEGATIVE NEGATIVE Urine ketones detection by automated test strip NEGATIVE NEGATIVE Urine nitrite detection by test strip NEGATIVE NEGATIVE Urine total bilirubin detection by test strip NEGATIVE NEGATIVE Urine urobilinogen measurement by automated test strip (mass/volume) NORMAL NORMAL Urine leukocyte esterase detection by dipstick NEGATIVE NEGATIVE Automated urine sediment erythrocyte count by microscopy (number/high power field) NONE NRG Automated urine sediment leukocyte count by microscopy (number/high power field ) NONE NRG Bacteria detection in urine sediment by light microscopy NEGATIVE NRG Squamous epithelial cells detection in urine sediment by light microscopy 25-50 NRG Crystals detection in urine sediment by light microscopy NONE NRG Casts detection in urine sediment by light microscopy NONE NRG Mucus detection in urine sediment by light microscopy NEGATIVE NRG Complete urinalysis with reflex to culture NO NRG Complete urinalysis with reflex to culture - 05/08/16 10:00 Urine color determination YELLOW NRG Urine clarity determination CLEAR NRG Urine pH measurement by test strip 7 5- 9 Specific gravity of urine by test strip 1.010 1.016-1.022 Urine protein assay by test strip, semi-quantitative 1+ NEGATIVE Urine glucose detection by automated test strip NEGATIVE NEGATIVE Erythrocytes detection in urine sediment by light microscopy NEGATIVE NEGATIVE Urine ketones detection by automated test strip 3+ NEGATIVE Urine nitrite detection by test strip NEGATIVE NEGATIVE Urine total bilirubin detection by test strip NEGATIVE NEGATIVE Urine urobilinogen measurement by automated test strip (mass/volume) 1 mg/dL NORMAL Urine leukocyte esterase detection by dipstick 1+ NEGATIVE Automated urine sediment erythrocyte count by microscopy (number/high power field) NONE NRG Automated urine sediment leukocyte count by microscopy (number/high power field ) [HPF] NRG Bacteria detection in urine sediment by light microscopy TRACE NRG Squamous epithelial cells detection in urine sediment by light microscopy 2-5 NRG Crystals detection in urine sediment by light microscopy NONE NRG Casts detection in urine sediment by light microscopy NONE NRG Mucus detection in urine sediment by light microscopy SMALL NRG Complete urinalysis with reflex to culture NO NRG Complete blood count (CBC) with automated white blood cell (WBC) differential - 05/08/16 11:50 Blood leukocytes automated count (number/volume) 5.6 10*3/ uL 4.3-11.0 Blood erythrocytes automated count (number/volume) 4.41 10*6 /uL 4.35-5.85 Venous blood hemoglobin measurement (mass/volume) 14.5 g/dL 11.5-16.0 Blood hematocrit (volume fraction) 42 % 35-52 Automated erythrocyte mean corpuscular volume 96 [foz_us] 80-99 Automated erythrocyte mean corpuscular hemoglobin (mass per erythrocyte) 33 pg 25-34 Automated erythrocyte mean corpuscular hemoglobin concentration measurement ( mass/volume) 34 g/dL 32-36 Automated erythrocyte distribution width ratio 13.8 % 10.0-14.5 Automated blood platelet count (count/volume) 126 10*3/uL 130-400 Automated blood platelet mean volume measurement 11.0 [foz_ us] 7.4-10.4 Automated blood neutrophils/100 leukocytes 55 % 42-75 Automated blood lymphocytes/100 leukocytes 31 % 12-44 Blood monocytes/100 leukocytes 10 % 0-12 Automated blood eosinophils/100 leukocytes 3 % 0-10 Automated blood basophils/100 leukocytes 1 % 0-10 Blood neutrophils automated count (number/volume) 3.1 10*3 1.8-7.8 Blood lymphocytes automated count (number/volume) 1.7 10*3 1.0-4.0 Blood monocytes automated count (number/volume) 0.6 10*3 0.0-1.0 Automated eosinophil count 0.2 10*3/uL 0.0-0.3 Automated blood basophil count (count/volume) 0.1 10*3/uL 0.0-0.1 Comprehensive metabolic panel - 05/08/16 11:50 Serum or plasma sodium measurement (moles/volume) 136 mmol/ L 135-145 Serum or plasma potassium measurement (moles/volume) 4.1 mmol/L 3.6-5.0 Serum or plasma chloride measurement (moles/volume) 101 mmol /L 98-107 Carbon dioxide 24 mmol/L 21-32 Serum or plasma anion gap determination (moles/volume) 11 mmol/L 5-14 Serum or plasma urea nitrogen measurement (mass/volume) 8 mg /dL 7-18 Serum or plasma creatinine measurement (mass/volume) 0.64 mg /dL 0.60-1.30 Serum or plasma urea nitrogen/creatinine mass ratio 13 NRG Serum or plasma creatinine measurement with calculation of estimated glomerular filtration rate > NRG Serum or plasma glucose measurement (mass/volume) 104 mg/dL 70-105 Serum or plasma calcium measurement (mass/volume) 9.6 mg/dL 8.5-10.1 Serum or plasma total bilirubin measurement (mass/volume) 1.4 mg/dL 0.1-1.0 Serum or plasma alkaline phosphatase measurement (enzymatic activity/volume) 110 U/L 40-136 Serum or plasma aspartate aminotransferase measurement (enzymatic activity/ volume) 53 U/L 5-34 Serum or plasma alanine aminotransferase measurement (enzymatic activity/volume ) 33 U/L 0-55 Serum or plasma protein measurement (mass/volume) 8.7 g/dL 6.4-8.2 Serum or plasma albumin measurement (mass/volume) 4.1 g/dL 3.2-4.5 Serum or plasma amylase measurement (enzymatic activity/volume) - 05/08/16 11: 50 Serum or plasma amylase measurement (enzymatic activity/volume) 81 U/L 25-125 Lipase - 05/08/16 11:50 Lipase 26 U/L 8-78 Serum or plasma ethanol measurement (mass/volume) - 05/08/16 11:50 Serum or plasma ethanol measurement (mass/volume) < mg/dL <10 Complete blood count (CBC) with automated white blood cell (WBC) differential - 09/01/16 21:55 Blood leukocytes automated count (number/volume) 8.9 10*3/ uL 4.3-11.0 Blood erythrocytes automated count (number/volume) 4.39 10*6 /uL 4.35-5.85 Venous blood hemoglobin measurement (mass/volume) 14.6 g/dL 11.5-16.0 Blood hematocrit (volume fraction) 43 % 35-52 Automated erythrocyte mean corpuscular volume 98 [foz_us] 80-99 Automated erythrocyte mean corpuscular hemoglobin (mass per erythrocyte) 33 pg 25-34 Automated erythrocyte mean corpuscular hemoglobin concentration measurement ( mass/volume) 34 g/dL 32-36 Automated erythrocyte distribution width ratio 14.3 % 10.0-14.5 Automated blood platelet count (count/volume) 112 10*3/uL 130-400 Automated blood platelet mean volume measurement 11.1 [foz_ us] 7.4-10.4 Automated blood neutrophils/100 leukocytes 63 % 42-75 Automated blood lymphocytes/100 leukocytes 25 % 12-44 Blood monocytes/100 leukocytes 8 % 0-12 Automated blood eosinophils/100 leukocytes 4 % 0-10 Automated blood basophils/100 leukocytes 1 % 0-10 Blood neutrophils automated count (number/volume) 5.6 10*3 1.8-7.8 Blood lymphocytes automated count (number/volume) 2.2 10*3 1.0-4.0 Blood monocytes automated count (number/volume) 0.7 10*3 0.0-1.0 Automated eosinophil count 0.4 10*3/uL 0.0-0.3 Automated blood basophil count (count/volume) 0.1 10*3/uL 0.0-0.1 Comprehensive metabolic panel - 09/01/16 21:55 Serum or plasma sodium measurement (moles/volume) 136 mmol/ L 135-145 Serum or plasma potassium measurement (moles/volume) 3.4 mmol/L 3.6-5.0 Serum or plasma chloride measurement (moles/volume) 99 mmol/ L 98-107 Carbon dioxide 24 mmol/L 21-32 Serum or plasma anion gap determination (moles/volume) 13 mmol/L 5-14 Serum or plasma urea nitrogen measurement (mass/volume) 7 mg /dL 7-18 Serum or plasma creatinine measurement (mass/volume) 0.64 mg /dL 0.60-1.30 Serum or plasma urea nitrogen/creatinine mass ratio 11 NRG Serum or plasma creatinine measurement with calculation of estimated glomerular filtration rate > NRG Serum or plasma glucose measurement (mass/volume) 93 mg/dL 70-105 Serum or plasma calcium measurement (mass/volume) 9.5 mg/dL 8.5-10.1 Serum or plasma total bilirubin measurement (mass/volume) 1.4 mg/dL 0.1-1.0 Serum or plasma alkaline phosphatase measurement (enzymatic activity/volume) 98 U/L 40-136 Serum or plasma aspartate aminotransferase measurement (enzymatic activity/ volume) 86 U/L 5-34 Serum or plasma alanine aminotransferase measurement (enzymatic activity/volume ) 55 U/L 0-55 Serum or plasma protein measurement (mass/volume) 8.4 g/dL 6.4-8.2 Serum or plasma albumin measurement (mass/volume) 4.0 g/dL 3.2-4.5 Complete blood count (CBC) with automated white blood cell (WBC) differential - 09/06/16 07:50 Blood leukocytes automated count (number/volume) 5.5 10*3/ uL 4.3-11.0 Blood erythrocytes automated count (number/volume) 3.89 10*6 /uL 4.35-5.85 Venous blood hemoglobin measurement (mass/volume) 13.0 g/dL 11.5-16.0 Blood hematocrit (volume fraction) 38 % 35-52 Automated erythrocyte mean corpuscular volume 98 [foz_us] 80-99 Automated erythrocyte mean corpuscular hemoglobin (mass per erythrocyte) 33 pg 25-34 Automated erythrocyte mean corpuscular hemoglobin concentration measurement ( mass/volume) 34 g/dL 32-36 Automated erythrocyte distribution width ratio 13.9 % 10.0-14.5 Automated blood platelet count (count/volume) 120 10*3/uL 130-400 Automated blood platelet mean volume measurement 11.1 [foz_ us] 7.4-10.4 Automated blood neutrophils/100 leukocytes 48 % 42-75 Automated blood lymphocytes/100 leukocytes 36 % 12-44 Blood monocytes/100 leukocytes 9 % 0-12 Automated blood eosinophils/100 leukocytes 5 % 0-10 Automated blood basophils/100 leukocytes 2 % 0-10 Blood neutrophils automated count (number/volume) 2.6 10*3 1.8-7.8 Blood lymphocytes automated count (number/volume) 2.0 10*3 1.0-4.0 Blood monocytes automated count (number/volume) 0.5 10*3 0.0-1.0 Automated eosinophil count 0.3 10*3/uL 0.0-0.3 Automated blood basophil count (count/volume) 0.1 10*3/uL 0.0-0.1 Urine drug screening test - 09/06/16 07:50 Urine phencyclidine detection by screening method NEGATIVE NEGATIVE Urine benzodiazepines detection by screening method POSITIVE NEGATIVE Urine cocaine detection NEGATIVE NEGATIVE Urine amphetamines detection by screening method NEGATIVE NEGATIVE Urine methamphetamine detection by screening method NEGATIVE NEGATIVE Urine cannabinoids detection by screening method POSITIVE NEGATIVE Urine opiates detection by screening method NEGATIVE NEGATIVE Urine barbiturates detection NEGATIVE NEGATIVE Screening urine tricyclic antidepressants detection POSITIVE NEGATIVE Urine methadone detection by screening method NEGATIVE NEGATIVE Urine oxycodone detection NEGATIVE NEGATIVE Urine propoxyphene detection NEGATIVE NEGATIVE PT panel in platelet poor plasma by coagulation assay - 09/06/16 07:50 Prothrombin time (PT) in platelet poor plasma by coagulation assay 14.2 s 12.2-14.7 INR in platelet poor plasma or blood by coagulation assay 1.1 0.8-1.4 Activated partial thromboplastin time (aPTT) in platelet poor plasma bycoagulation assay - 09/06/16 07:50 Activated partial thromboplastin time (aPTT) in platelet poor plasma bycoagulation assay 32 s 24-35 Comprehensive metabolic panel - 09/06/16 07:50 Serum or plasma sodium measurement (moles/volume) 138 mmol/ L 135-145 Serum or plasma potassium measurement (moles/volume) 3.6 mmol/L 3.6-5.0 Serum or plasma chloride measurement (moles/volume) 102 mmol /L 98-107 Carbon dioxide 25 mmol/L 21-32 Serum or plasma anion gap determination (moles/volume) 11 mmol/L 5-14 Serum or plasma urea nitrogen measurement (mass/volume) 8 mg /dL 7-18 Serum or plasma creatinine measurement (mass/volume) 0.66 mg /dL 0.60-1.30 Serum or plasma urea nitrogen/creatinine mass ratio 12 NRG Serum or plasma creatinine measurement with calculation of estimated glomerular filtration rate > NRG Serum or plasma glucose measurement (mass/volume) 107 mg/dL 70-105 Serum or plasma calcium measurement (mass/volume) 9.2 mg/dL 8.5-10.1 Serum or plasma total bilirubin measurement (mass/volume) 0.7 mg/dL 0.1-1.0 Serum or plasma alkaline phosphatase measurement (enzymatic activity/volume) 90 U/L 40-136 Serum or plasma aspartate aminotransferase measurement (enzymatic activity/ volume) 59 U/L 5-34 Serum or plasma alanine aminotransferase measurement (enzymatic activity/volume ) 39 U/L 0-55 Serum or plasma protein measurement (mass/volume) 7.8 g/dL 6.4-8.2 Serum or plasma albumin measurement (mass/volume) 3.7 g/dL 3.2-4.5 Magnesium - 09/06/16 07:50 Magnesium 2.2 mg/dL 1.8-2.4 Serum or plasma amylase measurement (enzymatic activity/volume) - 09/06/16 07: 50 Serum or plasma amylase measurement (enzymatic activity/volume) 61 U/L 25-125 Lipase - 09/06/16 07:50 Lipase 45 U/L 8-78 Ammonia - 09/06/16 07:50 Ammonia 54 umol/L 11-32 Serum or plasma ethanol measurement (mass/volume) - 09/06/16 07:50 Serum or plasma ethanol measurement (mass/volume) < mg/dL <10 Complete urinalysis with reflex to culture - 09/06/16 07:50 Urine color determination YELLOW NRG Urine clarity determination CLEAR NRG Urine pH measurement by test strip 6.5 5 -9 Specific gravity of urine by test strip 1.010 1.016-1.022 Urine protein assay by test strip, semi-quantitative NEGATIVE NEGATIVE Urine glucose detection by automated test strip NEGATIVE NEGATIVE Erythrocytes detection in urine sediment by light microscopy NEGATIVE NEGATIVE Urine ketones detection by automated test strip NEGATIVE NEGATIVE Urine nitrite detection by test strip NEGATIVE NEGATIVE Urine total bilirubin detection by test strip NEGATIVE NEGATIVE Urine urobilinogen measurement by automated test strip (mass/volume) 1 mg/dL NORMAL Urine leukocyte esterase detection by dipstick NEGATIVE NEGATIVE Automated urine sediment erythrocyte count by microscopy (number/high power field) NONE NRG Automated urine sediment leukocyte count by microscopy (number/high power field ) NONE NRG Bacteria detection in urine sediment by light microscopy TRACE NRG Squamous epithelial cells detection in urine sediment by light microscopy 25-50 NRG Crystals detection in urine sediment by light microscopy NONE NRG Casts detection in urine sediment by light microscopy NONE NRG Mucus detection in urine sediment by light microscopy NEGATIVE NRG Complete urinalysis with reflex to culture NO NRG Complete blood count (CBC) with automated white blood cell (WBC) differential - 10/07/16 18:49 Blood leukocytes automated count (number/volume) 7.9 10*3/ uL 4.3-11.0 Blood erythrocytes automated count (number/volume) 4.37 10*6 /uL 4.35-5.85 Venous blood hemoglobin measurement (mass/volume) 13.9 g/dL 11.5-16.0 Blood hematocrit (volume fraction) 41 % 35-52 Automated erythrocyte mean corpuscular volume 94 [foz_us] 80-99 Automated erythrocyte mean corpuscular hemoglobin (mass per erythrocyte) 32 pg 25-34 Automated erythrocyte mean corpuscular hemoglobin concentration measurement ( mass/volume) 34 g/dL 32-36 Automated erythrocyte distribution width ratio 13.6 % 10.0-14.5 Automated blood platelet count (count/volume) 141 10*3/uL 130-400 Automated blood platelet mean volume measurement 11.0 [foz_ us] 7.4-10.4 Automated blood neutrophils/100 leukocytes 50 % 42-75 Automated blood lymphocytes/100 leukocytes 37 % 12-44 Blood monocytes/100 leukocytes 6 % 0-12 Automated blood eosinophils/100 leukocytes 7 % 0-10 Automated blood basophils/100 leukocytes 1 % 0-10 Blood neutrophils automated count (number/volume) 3.9 10*3 1.8-7.8 Blood lymphocytes automated count (number/volume) 2.9 10*3 1.0-4.0 Blood monocytes automated count (number/volume) 0.5 10*3 0.0-1.0 Automated eosinophil count 0.5 10*3/uL 0.0-0.3 Automated blood basophil count (count/volume) 0.1 10*3/uL 0.0-0.1 Comprehensive metabolic panel - 10/07/16 18:49 Serum or plasma sodium measurement (moles/volume) 139 mmol/ L 135-145 Serum or plasma potassium measurement (moles/volume) 3.9 mmol/L 3.6-5.0 Serum or plasma chloride measurement (moles/volume) 102 mmol /L 98-107 Carbon dioxide 23 mmol/L 21-32 Serum or plasma anion gap determination (moles/volume) 14 mmol/L 5-14 Serum or plasma urea nitrogen measurement (mass/volume) 5 mg /dL 7-18 Serum or plasma creatinine measurement (mass/volume) 0.68 mg /dL 0.60-1.30 Serum or plasma urea nitrogen/creatinine mass ratio 7 0-20 Serum or plasma creatinine measurement with calculation of estimated glomerular filtration rate > NRG Serum or plasma glucose measurement (mass/volume) 98 mg/dL 70-105 Serum or plasma calcium measurement (mass/volume) 9.6 mg/dL 8.5-10.1 Serum or plasma total bilirubin measurement (mass/volume) 0.8 mg/dL 0.1-1.0 Serum or plasma alkaline phosphatase measurement (enzymatic activity/volume) 117 U/L 40-136 Serum or plasma aspartate aminotransferase measurement (enzymatic activity/ volume) 48 U/L 5-34 Serum or plasma alanine aminotransferase measurement (enzymatic activity/volume ) 28 U/L 0-55 Serum or plasma protein measurement (mass/volume) 8.8 g/dL 6.4-8.2 Serum or plasma albumin measurement (mass/volume) 4.1 g/dL 3.2-4.5 Serum or plasma amylase measurement (enzymatic activity/volume) - 10/07/16 18: 49 Serum or plasma amylase measurement (enzymatic activity/volume) 91 U/L 25-125 Lipase - 10/07/16 18:49 Lipase 44 U/L 8-78 Serum or plasma ethanol measurement (mass/volume) - 10/07/16 18:49 Serum or plasma ethanol measurement (mass/volume) 22 mg/dL <10 Complete urinalysis with reflex to culture - 10/07/16 18:58 Urine color determination YELLOW NRG Urine clarity determination CLEAR NRG Urine pH measurement by test strip 6 5- 9 Specific gravity of urine by test strip 1.010 1.016-1.022 Urine protein assay by test strip, semi-quantitative NEGATIVE NEGATIVE Urine glucose detection by automated test strip NEGATIVE NEGATIVE Erythrocytes detection in urine sediment by light microscopy NEGATIVE NEGATIVE Urine ketones detection by automated test strip NEGATIVE NEGATIVE Urine nitrite detection by test strip NEGATIVE NEGATIVE Urine total bilirubin detection by test strip NEGATIVE NEGATIVE Urine urobilinogen measurement by automated test strip (mass/volume) NORMAL NORMAL Urine leukocyte esterase detection by dipstick NEGATIVE NEGATIVE Automated urine sediment erythrocyte count by microscopy (number/high power field) NONE NRG Automated urine sediment leukocyte count by microscopy (number/high power field ) [HPF] NRG Bacteria detection in urine sediment by light microscopy NEGATIVE NRG Squamous epithelial cells detection in urine sediment by light microscopy 2-5 NRG Crystals detection in urine sediment by light microscopy NONE NRG Casts detection in urine sediment by light microscopy NONE NRG Mucus detection in urine sediment by light microscopy NEGATIVE NRG Complete urinalysis with reflex to culture NO NRG Urine drug screening test - 10/07/16 18:58 Urine phencyclidine detection by screening method NEGATIVE NEGATIVE Urine benzodiazepines detection by screening method POSITIVE NEGATIVE Urine cocaine detection NEGATIVE NEGATIVE Urine amphetamines detection by screening method NEGATIVE NEGATIVE Urine methamphetamine detection by screening method NEGATIVE NEGATIVE Urine cannabinoids detection by screening method POSITIVE NEGATIVE Urine opiates detection by screening method NEGATIVE NEGATIVE Urine barbiturates detection NEGATIVE NEGATIVE Screening urine tricyclic antidepressants detection NEGATIVE NEGATIVE Urine methadone detection by screening method NEGATIVE NEGATIVE Urine oxycodone detection NEGATIVE NEGATIVE Urine propoxyphene detection NEGATIVE NEGATIVE Complete blood count (CBC) with automated white blood cell (WBC) differential - 10/08/16 05:35 Blood leukocytes automated count (number/volume) 7.7 10*3/ uL 4.3-11.0 Blood erythrocytes automated count (number/volume) 4.04 10*6 /uL 4.35-5.85 Venous blood hemoglobin measurement (mass/volume) 12.9 g/dL 11.5-16.0 Blood hematocrit (volume fraction) 38 % 35-52 Automated erythrocyte mean corpuscular volume 94 [foz_us] 80-99 Automated erythrocyte mean corpuscular hemoglobin (mass per erythrocyte) 32 pg 25-34 Automated erythrocyte mean corpuscular hemoglobin concentration measurement ( mass/volume) 34 g/dL 32-36 Automated erythrocyte distribution width ratio 13.5 % 10.0-14.5 Automated blood platelet count (count/volume) 113 10*3/uL 130-400 Automated blood platelet mean volume measurement 11.1 [foz_ us] 7.4-10.4 Automated blood neutrophils/100 leukocytes 58 % 42-75 Automated blood lymphocytes/100 leukocytes 27 % 12-44 Blood monocytes/100 leukocytes 10 % 0-12 Automated blood eosinophils/100 leukocytes 4 % 0-10 Automated blood basophils/100 leukocytes 0 % 0-10 Blood neutrophils automated count (number/volume) 4.4 10*3 1.8-7.8 Blood lymphocytes automated count (number/volume) 2.1 10*3 1.0-4.0 Blood monocytes automated count (number/volume) 0.8 10*3 0.0-1.0 Automated eosinophil count 0.3 10*3/uL 0.0-0.3 Automated blood basophil count (count/volume) 0.0 10*3/uL 0.0-0.1 Comprehensive metabolic panel - 10/08/16 05:35 Serum or plasma sodium measurement (moles/volume) 138 mmol/ L 135-145 Serum or plasma potassium measurement (moles/volume) 3.4 mmol/L 3.6-5.0 Serum or plasma chloride measurement (moles/volume) 103 mmol /L 98-107 Carbon dioxide 22 mmol/L 21-32 Serum or plasma anion gap determination (moles/volume) 13 mmol/L 5-14 Serum or plasma urea nitrogen measurement (mass/volume) 5 mg /dL 7-18 Serum or plasma creatinine measurement (mass/volume) 0.62 mg /dL 0.60-1.30 Serum or plasma urea nitrogen/creatinine mass ratio 8 0-20 Serum or plasma creatinine measurement with calculation of estimated glomerular filtration rate > NRG Serum or plasma glucose measurement (mass/volume) 140 mg/dL 70-105 Serum or plasma calcium measurement (mass/volume) 9.0 mg/dL 8.5-10.1 Serum or plasma total bilirubin measurement (mass/volume) 1.0 mg/dL 0.1-1.0 Serum or plasma alkaline phosphatase measurement (enzymatic activity/volume) 109 U/L 40-136 Serum or plasma aspartate aminotransferase measurement (enzymatic activity/ volume) 44 U/L 5-34 Serum or plasma alanine aminotransferase measurement (enzymatic activity/volume ) 24 U/L 0-55 Serum or plasma protein measurement (mass/volume) 8.0 g/dL 6.4-8.2 Serum or plasma albumin measurement (mass/volume) 3.7 g/dL 3.2-4.5 Serum or plasma amylase measurement (enzymatic activity/volume) - 10/08/16 05: 35 Serum or plasma amylase measurement (enzymatic activity/volume) 65 U/L 25-125 Lipase - 10/08/16 05:35 Lipase 21 U/L 8-78 Complete blood count (CBC) with automated white blood cell (WBC) differential - 10/09/16 06:34 Blood leukocytes automated count (number/volume) 5.0 10*3/ uL 4.3-11.0 Blood erythrocytes automated count (number/volume) 4.15 10*6 /uL 4.35-5.85 Venous blood hemoglobin measurement (mass/volume) 13.2 g/dL 11.5-16.0 Blood hematocrit (volume fraction) 40 % 35-52 Automated erythrocyte mean corpuscular volume 96 [foz_us] 80-99 Automated erythrocyte mean corpuscular hemoglobin (mass per erythrocyte) 32 pg 25-34 Automated erythrocyte mean corpuscular hemoglobin concentration measurement ( mass/volume) 33 g/dL 32-36 Automated erythrocyte distribution width ratio 13.5 % 10.0-14.5 Automated blood platelet count (count/volume) 120 10*3/uL 130-400 Automated blood platelet mean volume measurement 10.7 [foz_ us] 7.4-10.4 Automated blood neutrophils/100 leukocytes 44 % 42-75 Automated blood lymphocytes/100 leukocytes 37 % 12-44 Blood monocytes/100 leukocytes 10 % 0-12 Automated blood eosinophils/100 leukocytes 8 % 0-10 Automated blood basophils/100 leukocytes 1 % 0-10 Blood neutrophils automated count (number/volume) 2.2 10*3 1.8-7.8 Blood lymphocytes automated count (number/volume) 1.9 10*3 1.0-4.0 Blood monocytes automated count (number/volume) 0.5 10*3 0.0-1.0 Automated eosinophil count 0.4 10*3/uL 0.0-0.3 Automated blood basophil count (count/volume) 0.0 10*3/uL 0.0-0.1 Comprehensive metabolic panel - 10/09/16 06:34 Serum or plasma sodium measurement (moles/volume) 138 mmol/ L 135-145 Serum or plasma potassium measurement (moles/volume) 3.9 mmol/L 3.6-5.0 Serum or plasma chloride measurement (moles/volume) 107 mmol /L 98-107 Carbon dioxide 22 mmol/L 21-32 Serum or plasma anion gap determination (moles/volume) 9 mmol/L 5-14 Serum or plasma urea nitrogen measurement (mass/volume) 5 mg /dL 7-18 Serum or plasma creatinine measurement (mass/volume) 0.63 mg /dL 0.60-1.30 Serum or plasma urea nitrogen/creatinine mass ratio 8 0-20 Serum or plasma creatinine measurement with calculation of estimated glomerular filtration rate > NRG Serum or plasma glucose measurement (mass/volume) 121 mg/dL 70-105 Serum or plasma calcium measurement (mass/volume) 9.0 mg/dL 8.5-10.1 Serum or plasma total bilirubin measurement (mass/volume) 1.4 mg/dL 0.1-1.0 Serum or plasma alkaline phosphatase measurement (enzymatic activity/volume) 98 U/L 40-136 Serum or plasma aspartate aminotransferase measurement (enzymatic activity/ volume) 56 U/L 5-34 Serum or plasma alanine aminotransferase measurement (enzymatic activity/volume ) 31 U/L 0-55 Serum or plasma protein measurement (mass/volume) 8.0 g/dL 6.4-8.2 Serum or plasma albumin measurement (mass/volume) 3.7 g/dL 3.2-4.5 Serum or plasma amylase measurement (enzymatic activity/volume) - 10/09/16 06: 34 Serum or plasma amylase measurement (enzymatic activity/volume) 57 U/L 25-125 Lipase - 10/09/16 06:34 Lipase 18 U/L 8-78 Encounters ACCT No. Visit Date/Time Discharge Status Pt. Type Provider Facility Loc./Unit Complaint [id number] 01/26/2009 00:00:00 01/26/2009 23: 59:59 CLS Outpatient MIKE LEWIS DO
--- OUTSIDE RECORDS SUMMARY | 2016-10-11 15:30 | XMS REPORT | Continuity of Care Document ---
Author Author [facility] Organization [facility] Address Unknown Phone Unavailable Care Team Providers Care Atmospheric Technician Name Role Phone PCP Unavailable Source Comments Some departments are not documenting in the electronic medical record. If you do not see the information that you expected, contact Release of Information in the Health Information Management department at [phone] for further assistance in locating additional records.[facility] Active Allergies and Adverse Reactions Not on [...]
--- OUTSIDE RECORDS SUMMARY | 2016-10-11 15:32 | XMS REPORT | Continuity of Care Document ---
Author Author [facility] Address Unknown Phone Unavailable Allergies Active Description Code Type Severity Reaction Onset Reported/Identified Relationship to Patient Clinical Status Yes codeine Drug Allergy N/A N/A 11/09/2008 Yes codeine [id number] Drug Allergy Unknown N/A 10/07/2016 Medications Problems [...] 12/17/2008 MIKE LEWIS DO 276.8 HYPOPOTASSEMIA 12/17/2008 MKIE LEWIS DO 296.52 BIPOLAR I DISORDER MOST [...] 08/12/2013 ANITA WASHINGTON, GOLD Baird Ot V06.1 [id number], COMBINED [ 06/16/2014 MAYCOL GUERRA MD Ot [...] HUNT MD Ot 724.02 09/18/2014 CHARLIE WASHINGTON, MACYOL Crandall Ot 722.52 09/18/2014 CHARLIE WASHINGTON, MAYCOL [...] Sandy Ot 785.1 10/16/2014 JESS WASHINGTON, AROLDO Slaomon Ot 840.9 SPRAIN SHOULDER/ARM NOS 10/16/2014 JESS [...] 070.70 01/12/2015 Ot 491.20 01/19/2015 IVY HARDY PATROL MOTHER Ot 070.70 UNSPECIFIED VIRAL HEPATITIS C WITHOUT HE 01/19/2015 IVY HARDY PATROL MOTHER Ot 530.81 ESOPHAGEAL REFLUX 01/19/2015 IVY HARDY PATROL MOTHER Ot 573.8 LIVER DISORDERS NEC 01/19/2015 IVY HARDY PATROL MOTHER Ot 780.60 FEVER, UNSPECIFIED 01/19/2015 IVY HARDY PATROL MOTHER Ot 789.09 ABDOMINAL PAIN, OTHER SPECIFIED SITE 01/19/2015 IVY HARDY PATROL MOTHER Ot V58.69 OTH MED,LT,CURRENT USE 01/25/2015 ANITA [...] AROLDO MERCADO MD Ot Y92.002 BATHRM OF [facility] NON-INSTITUT RESDNCE SNGL 04/26/2015 AROLDO MERCADO MD [...] RINKU Mota Ot Z91.19 PATIENT'S NONCOMPLIANCE [facility] 08/18/2015 RINKU MANDEL DO Ot [...] GASTRO-ESOPHAGEAL REFLUX DISEASE WITHOUT 08/18/2015 TEQUILA RINKU AMRINO Ot K29.71 GASTRITIS, UNSPECIFIED, WITH BLEEDING 08/18/2015 RINKU MANDEL DO Ot K74.60 UNSPECIFIED CIRRHOSIS OF LIVER 08/18/2015 RINKU MANDEL DO Ot M54.5 LOW BACK PAIN 08/18/2015 RINKU MANDEL DO Ot M79.7 FIBROMYALGIA 08/18/2015 RUBENABIOLA RINKU MARINO Ot Z91.19 PATIENT'S NONCOMPLIANCE [facility] 08/25/2015 Ot 789.01 ABDOMINAL PAIN, [...] EXAMINATION 08/25/2015 MAYCOL GUERRA MD Ot V72.81 [id number] CARDIOVASCULAR 08/25/2015 MAYCOL GUERRA MD Ot V74.8 [...] MARTIN ACUNA Ot Z91.19 PATIENT'S NONCOMPLIANCE [facility] 09/16/2015 GOLD HOWARD MD Ot B19.20 UNSPECIFIED VIRAL HEPATITIS C WITHOUT HE 09/16/2015 GOLD HOWARD MD Ot F10.10 ALCOHOL ABUSE, UNCOMPLICATED 09/16/2015 GOLD HOWARD MD Ot F12.10 CANNABIS ABUSE, UNCOMPLICATED 09/16/2015 GOLD HOWARD MD Ot F17.210 NICOTINE DEPENDENCE, CIGARETTES, UNCOMPL 09/16/2015 GOLD HOWARD MD Ot I85.00 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EDING 09/16/2015 GOLD HOWARD MD Ot K29.70 GASTRITIS, UNSPECIFIED, WITHOUT BLEEDING 09/16/2015 GOLD HOAWRD MD Ot K44.9 DIAPHRAGMATIC HERNIA WITHOUT OBSTRUCTION 09/16/2015 GOLD HOWARD MD Ot R11.2 NAUSEA WITH VOMITING, UNSPECIFIED 10/22/2015 AROLDO MERCADO MD Ot F10.20 ALCOHOL DEPENDENCE, UNCOMPLICATED 10/22/2015 AROLDO MERCADO MD Ot R10.13 EPIGASTRIC PAIN 10/22/2015 AROLDO MERCADO MD Ot R11.2 NAUSEA WITH VOMITING, UNSPECIFIED 11/09/2015 IVY HARDY APRN Ot B19.20 UNSPECIFIED VIRAL HEPATITIS C WITHOUT HE 11/09/2015 HARDY, PETER J PATROL MOTHER Ot 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 11/09/2015 IVY HARDY PATROL MOTHER Ot K70.30 ALCOHOLIC CIRRHOSIS OF LIVER WITHOUT ASC 11/09/2015 IVY HARDY PATROL MOTHER Ot R10.13 EPIGASTRIC PAIN 11/09/2015 IVY HARDY PATROL MOTHER Ot Z91.19 PATIENT'S NONCOMPLIANCE W [facility] 11/10/2015 IVY HARDY PATROL MOTHER Ot B19.20 UNSPECIFIED VIRAL HEPATITIS C WITHOUT HE 11/10/2015 IVY HARDY PATROL MOTHER Ot 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 11/10/2015 IVY HARDY PATROL MOTHER Ot K70.30 ALCOHOLIC CIRRHOSIS OF LIVER WITHOUT ASC 11/10/2015 IVY HARDY PATROL MOTHER Ot R10.13 EPIGASTRIC PAIN 11/10/2015 IVY HARDY PATROL MOTHER Ot Z91.19 PATIENT'S NONCOMPLIANCE W [facility] 11/10/2015 IVY HARDY PATROL MOTHER Ot B19.20 UNSPECIFIED VIRAL HEPATITIS C WITHOUT HE 11/10/2015 IVY HARDY PATROL MOTHER Ot 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 11/10/2015 IVY HARDY PATROL MOTHER Ot K70.30 ALCOHOLIC CIRRHOSIS OF LIVER WITHOUT ASC 11/10/2015 IVY HARDY PATROL MOTHER Ot R10.13 EPIGASTRIC PAIN 11/10/2015 IVY HARDY PATROL MOTHER Ot Z91.19 PATIENT'S NONCOMPLIANCE W [facility] 11/22/2015 GOYO PARK DO Ot [...] EXAMINATION 11/24/2015 MAYCOL GUERRA MD Ot V72.81 [id number] CARDIOVASCULAR 11/24/2015 MAYCOL GUERRA MD Ot V74.8 [...] 01/18/2016 AROLDO MERCADO MD Ot Z79.899 OTHER ENRICHMENT ASSISTANT (CURRENT) DRUG THERAPY 01/19/2016 AROLDO MERCADO MD [...] 01/19/2016 AROLDO MERCADO MD Ot Z79.899 OTHER RESIDENTIAL (CURRENT) DRUG THERAPY 01/25/2016 AROLDO MERCADO MD [...] 01/25/2016 AROLDO MERCADO MD Ot Z79.899 OTHER ENRICHMENT ASSISTANT (CURRENT) DRUG THERAPY 01/25/2016 Ot 789.01 ABDOMINAL [...] EXAMINATION 01/25/2016 MAYCOL GUERRA MD, Ot V72.81 [id number] CARDIOVASCULAR 01/25/2016 MAYCOL GUERRA MD, Ot V74.8 [...] NICOTINE DEPENDENCE, CIGARETTES, UNCOMPL 02/26/2016 PJ TREJO GREEN CHAIN OPERATOR Ot I10 ESSENTIAL (PRIMARY) HYPERTENSION 02/26/2016 PJ TREJOP Ot M25.512 PAIN IN LEFT SHOULDER 02/26/2016 PJ TREJOP Ot M79.1 MYALGIA 02/26/2016 PJ TREJOP Ot R06.00 DYSPNEA, UNSPECIFIED 02/26/2016 PJ TREJO Ot R07.89 OTHER CHEST PAIN 02/26/2016 PJ TREJOP Ot Z79.899 OTHER ENRICHMENT ASSISTANT (CURRENT) DRUG THERAPY 02/28/2016 PJ TREJO GREEN CHAIN OPERATOR Ot F17.210 NICOTINE DEPENDENCE, CIGARETTES, UNCOMPL 02/28/2016 PJ TREJO GREEN CHAIN OPERATOR Ot I10 ESSENTIAL (PRIMARY) HYPERTENSION 02/28/2016 PJ TREJO GREEN CHAIN OPERATOR Ot M25.512 PAIN IN LEFT SHOULDER 02/28/2016 PJ TREJOP Ot M79.1 MYALGIA 02/28/2016 MAYAPJ MiddletonP Ot R06.00 DYSPNEA, UNSPECIFIED 02/28/2016 MAYAPJ GREEN CHAIN OPERATOR Ot R07.89 OTHER CHEST PAIN 02/28/2016 MAYA PJ LAYP Ot Z79.899 OTHER ENRICHMENT ASSISTANT (CURRENT) DRUG THERAPY 02/29/2016 RINKU MANDEL DO Ot K74.60 UNSPECIFIED CIRRHOSIS OF LIVER 02/29/2016 RINKU MANDEL DO Ot R91.8 OTHER NONSPECIFIC ABNORMAL FINDING OF CORI 03/13/2016 RINKU MANDEL DO Ot K74.60 UNSPECIFIED CIRRHOSIS OF LIVER 03/13/2016 RINKU MANDEL DO Ot R91.8 OTHER NONSPECIFIC ABNORMAL FINDING OF CORI 05/08/2016 MAYA PJ LAYP Ot B19.20 UNSPECIFIED VIRAL HEPATITIS C WITHOUT HE 05/08/2016 MAYA PJ GREEN CHAIN OPERATOR Ot F17.210 NICOTINE DEPENDENCE, CIGARETTES, UNCOMPL 05/08/2016 PJ TREJOP Ot I10 ESSENTIAL (PRIMARY) HYPERTENSION 05/08/2016 MAYA, PJ LAYP Ot J44.9 CHRONIC OBSTRUCTIVE PULMONARY DISEASE, U 05/08/2016 MAYAPJ MiddletonP Ot R10.13 EPIGASTRIC PAIN 05/08/2016 MAYAPJ Middleton GREEN CHAIN OPERATOR Ot R11.2 NAUSEA WITH VOMITING, UNSPECIFIED 05/08/2016 MAYAPJ Middleton GREEN CHAIN OPERATOR Ot S39.012A STRAIN OF MUSCLE, FASCIA AND TENDON OF L 05/08/2016 MAYAPJ MiddletonP Ot X50.9XXA OTHER AND UNSPECIFIED OVREXRTN OR STRNOU 05/08/2016 MAYAPJ Middleton GREEN CHAIN OPERATOR Ot Y92.[address] IN [facility] NON-[facility] 05/08/2016 MAYAPJ Middleton GREEN CHAIN OPERATOR Ot Y99.8 OTHER EXTERNAL CAUSE STATUS 05/08/2016 MAYAPJ Middleton GREEN CHAIN OPERATOR Ot Z79.899 OTHER ENRICHMENT ASSISTANT (CURRENT) DRUG THERAPY 05/10/2016 PJ TREJOP Ot B19.20 UNSPECIFIED VIRAL HEPATITIS C WITHOUT HE 05/10/2016 PJ TREJOP Ot F17.210 NICOTINE DEPENDENCE, CIGARETTES, UNCOMPL 05/10/2016 MAYA PJ GREEN CHAIN OPERATOR Ot I10 ESSENTIAL (PRIMARY) HYPERTENSION 05/10/2016 PJ TREJOP Ot J44.9 CHRONIC OBSTRUCTIVE PULMONARY DISEASE, U 05/10/2016 PJ TREJOP Ot R10.13 EPIGASTRIC PAIN 05/10/2016 MAYA PJ GREEN CHAIN OPERATOR Ot R11.2 NAUSEA WITH VOMITING, UNSPECIFIED 05/10/2016 JP TREJOP Ot S39.012A STRAIN OF MUSCLE, FASCIA AND TENDON OF L 05/10/2016 MAYAPJ GREEN CHAIN OPERATOR Ot X50.9XXA OTHER AND UNSPECIFIED OVREXRTN OR STRNOU 05/10/2016 MAYAPJ GREEN CHAIN OPERATOR Ot Y92.[address] [facility] [address] IN [facility] NON[facility] 05/10/2016 MAYA PJ GREEN CHAIN OPERATOR Ot Y99.8 OTHER EXTERNAL CAUSE STATUS 05/10/2016 MAYAPJ GREEN CHAIN OPERATOR Ot Z79.899 OTHER RESIDENTIAL (CURRENT) DRUG THERAPY 09/06/2016 DAGOBERTO WOMACK DO [...] 09/06/2016 DAGOBERTO WOMACK DO Ot Z79.899 OTHER RESIDENTIAL (CURRENT) DRUG THERAPY 09/06/2016 VU LAURA MARINOA K Ot Z91.19 PATIENT'S NONCOMPLIANCE W [facility] 09/12/2016 DAGOBERTO WOMACK DO Ot [...] VU MARINO DAGOBERTO K Ot Z79.899 OTHER RESIDENTIAL (CURRENT) DRUG THERAPY 09/12/2016 VU MARINO DAGOBERTO K Ot Z91.19 PATIENT'S NONCOMPLIANCE W [facility] 09/21/2016 AROLDO MERCADO MD Ot [...] 09/21/2016 AROLDO MERCADO MD, Ot Z79.899 OTHER ENRICHMENT ASSISTANT (CURRENT) DRUG THERAPY 09/26/2016 GELLENDER DO, RINKU [...] Procedures Code Description [place] [address] A1C 08/20/2008 58354 T4 FREE 2008 78275 T3 TOTAL 2008 [id number] 08/17/2015 Results Test Result Range Complete blood [...] Status Pt. Type Provider Facility Loc./Unit Complaint [id number] 01/26/2009 00:00:00 01/26/2009 23: 59:59 CLS Outpatient MIKE LEWIS DO
== END 2016-10-09 11:20 | disposition home or self-care (01) ==
LOC: EDUNIT# 18:26 → ER 18:27 → 4TH 22:20
PROVIDERS: ADMIT Family Medicine; ATTEND Family Medicine
DX: R10.12 Left upper quadrant pain (principal); K82.8 Other specified diseases of gallbladder; K74.60 Unspecified cirrhosis of liver; B19.20 Unspecified viral hepatitis C without hepatic coma; J44.9 Chronic obstructive pulmonary disease, unspecified; I10 Essential (primary) hypertension; K21.9 Gastro-esophageal reflux disease without esophagitis; K59.00 Constipation, unspecified; Z91.19 Patient's noncompliance with other medical treatment and regimen; F12.10 Cannabis abuse, uncomplicated; F17.210 Nicotine dependence, cigarettes, uncomplicated
CPT/HCPCS: 36415; 74000; 74022; 74177; 76700; 80053; 80306; 80320; 81000; 82150; 83690; 85025; G0378

== ENCOUNTER → 2016-10-19 | Outpatient (CLI) | payer MEDICARE, MEDICAID ==
[~2016-10-19] MED LIST changes: +FAMO20TA5 PO; +SUCR1TAB36 PO
--- NOTE | 2016-10-19 20:12 | Diagnostic Imaging Report ---
EXAMINATION: Bilateral breast ultrasound. INDICATION: Bilateral breast asymmetry seen on mammography. FINDINGS: The four quadrants and retroareolar region of each breast were scanned with no underlying abnormality seen. IMPRESSION: Negative study. Mammography additional views are suggested. No definite underlying lesions. Annual screening mammograms recommended. ACR BI-RADS Category 1: Negative. Result letter will be mailed to the patient. Note: At least 10% of breast cancer is not imaged by mammography. Dictated by: Dictated on workstation # [id number]
--- NOTE | 2016-10-19 20:16 | Diagnostic Imaging Report ---
Bilateral diagnostic mammogram. The current study was also evaluated with a Computer Aided Detection (CAD) system. INDICATION: Asymmetry along the upper aspect of the right breast and central and upper left breast asymmetries seen. FINDINGS: Focal compression views demonstrate less prominent asymmetries with no definite underlying lesion seen. IMPRESSION: Additional views evaluation for the asymmetries is in favor of summation artifact of parenchyma. Ultrasound evaluation pending. ACR BI-RADS Category 0: Incomplete. (Needs additional imaging evaluation). Result letter will be mailed to the patient. Note: At least 10% of breast cancer is not imaged by mammography. Dictated by: Dictated on workstation # [id number]
== END ==
LOC: RAD 08:35
PROVIDERS: ATTEND Family Medicine
DX: R92.8 Other abnormal and inconclusive findings on diagnostic imaging of breast (principal); N64.89 Other specified disorders of breast
CPT/HCPCS: 77066

== ENCOUNTER 2016-12-05 09:53 | Observation (INO) | payer MEDICARE, MEDICAID ==
[~2016-12-05] VITALS: Ht 160 cm; Wt 60.0 kg
--- OUTSIDE RECORDS SUMMARY | 2016-12-05 09:59 | XMS REPORT | Clinical Summary ---
Author Author [facility] Organization [facility] Address Unknown Phone Unavailable Care Team Providers Care Dining Room Server Name Role Phone PCP Unavailable Source Comments Some departments are not documenting in the electronic medical record. If you do not see the information that you expected, contact Release of Information in the Health Information Management department at [phone] for further assistance in locating additional records.[facility] Allergies Not on File Current Medications Not on file Active Problems Not on file Social History Tobacco Use Types Packs/Day Years Used Date Never Assessed Sex Assigned at Date Recorded Not on file Last Filed Vital Signs Not on file Plan of Treatment Health Maintenance Due Date Last Done Comments HEPATITIS C SCREENING 1963 PHYSICAL (COMPREHENSIVE) 1970 EXAM PERTUSSIS VACCINE 1974 TETANUS VACCINE 01/29/1980 CERVICAL CANCER SCREENING 1993 BREAST CANCER SCREENING 2003 COLORECTAL CANCER 2013 SCREENING INFLUENZA VACCINE 12/22/2016 Results Not on filefrom Last 3 Months
[2016-12-05] MEDS ORDERED: NS IV 1000 ML 1,000 ML IV ONE (10:22)
[2016-12-05] MEDS ORDERED: fentaNYL INJECTION 100 MCG/2 ML AMP IVP STA (10:22)
[2016-12-05] MEDS ORDERED: ONDANSETRON 4 MG/2 ML (SDV) Z0FRAN IVP ONE (10:30)
[2016-12-05] MEDS ORDERED: LORazepam INJ 2 MG/ML (ATIVAN) VIAL IVP ONE (10:30)
[2016-12-05 10:32] LABS: BASOPHILS # (AUTO) 0.1 10^3/uL (0.0-0.1); BASOPHILS % (AUTO) 1 % (0-10); EOSINOPHILS # (AUTO) 0.2 10^3/uL (0.0-0.3); EOSINOPHILS % (AUTO) 2 % (0-10); LYMPHOCYTES # (AUTO) 2.6 X 10^3 (1.0-4.0); LYMPHOCYTES % (AUTO) 32 % (12-44); MEAN CORPUSCULAR HEMOGLOBIN 31 PG (25-34); MEAN CORPUSCULAR HGB CONC 34 G/DL (32-36); MEAN CORPUSCULAR VOLUME 91 FL (80-99); MEAN PLATELET VOLUME 10.3 FL (7.4-10.4); MONOCYTES # (AUTO) 0.6 X 10^3 (0.0-1.0); MONOCYTES % (AUTO) 8 % (0-12); NEUTROPHILS # (AUTO) 4.7 X 10^3 (1.8-7.8); NEUTROPHILS % (AUTO) 58 % (42-75); PLATELET COUNT 170 10^3/uL (130-400); RED BLOOD COUNT 4.33 10^6/uL (4.35-5.85); RED CELL DISTRIBUTION WIDTH 15.2 % (10.0-14.5); WHITE BLOOD COUNT 8.1 10^3/uL (4.3-11.0)
--- NOTE | 2016-12-05 10:32 | ED GI ---
General Chief Complaint: Abdominal/GI Problems Stated Complaint: N/V Source of Information: Patient Exam Limitations: No Limitations History of Present Illness Time Seen By Provider: 10:18 Initial Comments Here with report of nausea, vomiting and diarrhea. Reports abdominal pain for the past couple of days with the nausea and vomiting. Also with back pain due to the vomiting now. She was unable to take her medicines this morning including her Xanax but was able to get him down last night. Was seen at her primary care doctor's office who ultimately sent her here. Reportedly she had 4 pound weight loss over the last couple days possibly related to the vomiting and diarrhea. Does have history of significant chronic advanced liver disease. Reports chills and subjective fever.. Timing/Duration: 2-3 Days Severity/Quality: Moderate, Aching, Cramping Location: Generalized Abdomen Radiation: Back Activities at Onset: None Modifying Factors: Worsens With Eating, Worsens With Movement Associated Symptoms: Back Pain, Fever/Chills, Fatigue, Nausea/Vomiting Allergies and Home Medications Allergies Coded Allergies: codeine (Verified Allergy, Unknown, 10/07/16) Home Medications Albuterol Sulfate 18 Gm Hfa.aer.ad, 2 PUFF INH Q4H PRN for SHORTNESS OF BREATH, (Reported) Alprazolam 0.5 Mg Tablet, 0.5 MG PO HS PRN for ANXIETY, (Reported) Amlodipine Besylate 10 Mg Tablet, 10 MG PO DAILY, (Reported) LAST FILLED #30 05-09-16 Cyclobenzaprine HCl 10 Mg Tablet, 10 MG PO BID, (Reported) Famotidine 20 Mg Tablet, 20 MG PO BID, (Reported) Fluticasone/Salmeterol 1 Each Blst.w.dev, 1 PUFF INH BID, (Reported) Gabapentin 300 Mg Capsule, 600 MG PO HS, (Reported) TAKES 2 (300MG) CAPSULES Pantoprazole Sodium 40 Mg Tablet.dr, 40 MG PO DAILY, (Reported) Promethazine HCl 25 Mg Tablet, 25 MG PO TID PRN for NAUSEA/VOMITING-2ND LINE, ( Reported) Sucralfate 1 Gm Tablet, 1 GM PO ACHS, (Reported) Tramadol HCl 50 Mg Tablet, 50 MG PO BID PRN for PAIN-MILD, (Reported) Triamcinolone Acet 15 Gm Cr, TOP TID PRN for SORES, (Reported) Review of Systems Constitutional: see HPI EENTM: No Symptoms Reported Respiratory: No Symptoms Reported Cardiovascular: No Symptoms Reported Gastrointestinal: See HPI, Abdominal Pain, Diarrhea, Nausea, Other (no reported vomiting of blood or blood in the stool.) Genitourinary: No Symptoms Reported Musculoskeletal: see HPI, back pain Skin: no symptoms reported Psychiatric/Neurological: Anxiety All Other Systems Reviewed Negative Unless Noted: Yes Past Napmxbd-Awyoja-Vuoexo Hx Patient Social History Alcohol Use: Past History Recreational Drug Use: Yes Drug of Choice: MARIJUANA Smoking Status: Current Someday Smoker Type Used: Cigarettes 2nd Hand Smoke Exposure: Yes Recent Foreign Travel: No Contact w/Someone Who Travel: No Recent Hopitalizations: No Immunizations Up To Date Tetanus Booster (TDap): More than 5yrs PED Vaccines UTD: No Date of Pneumonia Vaccine: Jul 22, 2008 Date of Influenza Vaccine: Jan 17, 2016 Seasonal Allergies Seasonal Allergies: Yes Surgeries HX Surgeries: Yes (DX LAPAROSCOPY, BACK SX; ENDOSCOPIES) Surgeries: Abdominal, Adenoidectomy, Orthopedic, Tonsillectomy Respiratory Hx Respiratory Disorders: Yes Respiratory Disorders: Asthma, COPD Cardiovascular Hx Cardiac Disorders: Yes Cardiac Disorders: Heart Murmur, Hypertension Neurological Hx Neurological Disorders: No 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 System Hx 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 Disorders: Yes Sexually Transmitted Disease: Yes HIV/AIDS: No 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 Disorders: Denies FERMENTER WINE History: Menopausal Genitourinary Hx Genitourinary Disorders: Yes Genitourinary Disorders: Kidney Stones Gastrointestinal Hx Gastrointestinal Disorders: Yes (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; ALCOHOLIC GASTRITIS) Gastrointestinal Disorders: Gastroesophageal Reflux, Gastrointestinal Bleed, Esophageal Varices, Hepatitis, Cirrhosis Musculoskeletal Hx Musculoskeletal Disorders: Yes Musculoskeletal Disorders: Arthritis, Fibromyalgia, Chronic Back Pain Endocrine Hx Endocrine Disorders: No HEENT HX ENT Disorders: Yes (GLASSES) Cancer Hx Cancer: No Psychosocial Hx Psychiatric Problems: Yes (POLYSUBSTANCE ABUSE--ALCOHOL, DRUGS) Behavioral Health Disorders: ADD/ADHD, Anxiety Integumentary HX Skin/Integumentary Disorder: No Blood Transfusions Hx Blood Disorders: No Adverse Reaction to a Blood Tr: No Reviewed Nursing Assessment Reviewed/Agree w Nursing PMH: Yes Family Medical History Significant Family History: No Pertinent Family Hx Family Medial History: Alcoholism G8 SISTER Cardiovascular disease 19 FATHER Colon cancer G8 BROTHER Diabetes mellitus G8 BROTHER Drug abuse G8 SISTER FH: cancer 19 MOTHER (BRAIN) G8 BROTHER Glaucoma 19 FATHER Hypertension 19 FATHER Myocardial infarction 19 FATHER Psychosocial problem 19 FATHER G8 BROTHER G8 SISTER No Family History of: AIDS Abdominal aortic aneurysm Alzheimer's disease Arthritis Asthma Completed stroke Parkinson's disease Respiratory disorder Seizure disorder Severe allergy Thyroid disease Physical Exam Vital Signs VS - Last 72 Hours, by Label 12/05/16 10:00 Temp 96.7 Pulse 94 Resp 16 B/P (MAP) 136/58 Pulse Ox 97 O2 Delivery Room Air Capillary Refill : General Appearance: WD/WN, mild distress HEENT: PERRL/EOMI, pharynx normal Neck: full range of motion, supple Respiratory: lungs clear, normal breath sounds Cardiovascular: regular rate, rhythm, no murmur Peripheral Pulses: 2+ Dorsalis Pedis (R), 2+ Left Dors-Pedis (L), 2+ Radial Pulses (R), 2+ Radial Pulses (L) Gastrointestinal: normal bowel sounds, non tender, soft, hepatomegaly Extremities: non-tender, normal inspection Back: normal inspection, no CVA tenderness, no vertebral tenderness Neurologic/Psychiatric: alert, oriented x 3 Skin: normal color, warm/dry Progress/Results/Core Measures Results/Orders Lab Results Laboratory Tests Test 12/05/16 10:10 12/05/16 10:45 12/05/16 11:43 Range/Units White Blood Count 8.1 4.3-11.0 10^3/uL Red Blood Count 4.33 L 4.35-5.85 10^6/uL Hemoglobin 13.4 11.5-16.0 G/DL Hematocrit 39 35-52 % Mean Corpuscular Volume 91 80-99 FL Mean Corpuscular Hemoglobin 31 25-34 PG Mean Corpuscular Hemoglobin Concent 34 32-36 G/DL Red Cell Distribution Width 15.2 H 10.0-14.5 % Platelet Count 170 130-400 10^3/uL Mean Platelet Volume 10.3 7.4-10.4 FL Neutrophils (%) (Auto) 58 42-75 % Lymphocytes (%) (Auto) 32 12-44 % Monocytes (%) (Auto) 8 0-12 % Eosinophils (%) (Auto) 2 0-10 % Basophils (%) (Auto) 1 0-10 % Neutrophils # (Auto) 4.7 1.8-7.8 X 10^3 Lymphocytes # (Auto) 2.6 1.0-4.0 X 10^3 Monocytes # (Auto) 0.6 0.0-1.0 X 10^3 Eosinophils # (Auto) 0.2 0.0-0.3 10^3/uL Basophils # (Auto) 0.1 0.0-0.1 10^3/uL Sodium Level 140 135-145 MMOL/L Potassium Level 3.4 L 3.6-5.0 MMOL/L Chloride Level 102 98-107 MMOL/L Carbon Dioxide Level 21 21-32 MMOL/L Anion Gap 17 H 5-14 MMOL/L Blood Urea Nitrogen 3 L 7-18 MG/DL Creatinine 0.62 0.60-1.30 MG/DL Estimat Glomerular Filtration Rate > 60 BUN/Creatinine Ratio 5 Glucose Level 117 H 70-105 MG/DL Calcium Level 9.4 8.5-10.1 MG/DL Total Bilirubin 1.0 0.1-1.0 MG/DL Aspartate Amino Transf (AST/SGOT) 108 H 5-34 U/L Alanine Aminotransferase (ALT/SGPT) 54 0-55 U/L Alkaline Phosphatase 109 40-136 U/L Total Protein 9.0 H 6.4-8.2 GM/DL Albumin 4.0 3.2-4.5 GM/DL Lipase 24 8-78 U/L Monoscreen NEGATIVE NEGATIVE Serum Alcohol < 10 <10 MG/DL Urine Color YELLOW Urine Clarity SLIGHTLY CLOUDY Urine pH 6 5-9 Urine Specific [place] 1.015 L 1.016-1.022 Urine Protein 1+ H NEGATIVE Urine Glucose (UA) NEGATIVE NEGATIVE Urine Ketones 3+ H NEGATIVE Urine Nitrite NEGATIVE NEGATIVE Urine Bilirubin NEGATIVE NEGATIVE Urine Urobilinogen 1 NORMAL MG/DL Urine Leukocyte Esterase NEGATIVE NEGATIVE Urine RBC (Auto) NEGATIVE NEGATIVE Urine RBC NONE /HPF Urine WBC RARE /HPF Urine Squamous Epithelial Cells 5-10 /HPF Urine Crystals NONE /LPF Urine Bacteria FEW H /HPF Urine Casts NONE /LPF Urine Mucus SMALL H /LPF Urine Yeast FEW H /HPF Urine Culture Indicated NO My Orders Orders - AROLDO MERCADO MD Cbc With Automated Diff (12/05/16 10:22) Comprehensive Metabolic Panel (12/05/16 10:22) Lipase (12/05/16 10:22) Monotest (12/05/16 10:22) Ua Culture If Indicated (12/05/16 10:22) Saline Lock/Iv-Start (12/05/16 10:22) Ns Iv 1000 Ml (Sodium Chloride 0.9%) (12/05/16 10:22) Fentanyl Injection (Sublimaze Injection (12/05/16 10:22) Ondansetron Injection (Zofran Injectio (12/05/16 10:30) Lorazepam Injection (Ativan Injection) (12/05/16 10:30) Alcohol (12/05/16 11:09) Medications Given in ED Current Medications Medications Dose Ordered Sig/Pino Route Start Time Stop Time Status Last Admin Dose Admin Lorazepam 0.5 mg ONCE ONCE IVP 12/05/16 10:30 12/05/16 10:31 DC 12/05/16 10:40 0.5 MG Ondansetron HCl 4 mg ONCE ONCE IVP 12/05/16 10:30 12/05/16 10:31 DC 12/05/16 10:40 4 MG Sodium Chloride 1,000 ml @ 0 mls/hr Q0M ONCE IV 12/05/16 10:22 12/05/16 10:26 DC 12/05/16 10:40 0 MLS/HR Vital Signs/I&O Vital Sign - Last 12Hours 12/05/16 10:00 Temp 96.7 Pulse 94 Resp 16 B/P (MAP) 136/58 Pulse Ox 97 O2 Delivery Room Air Progress Note : Progress Note Seen and evaluated. IV, labs, UA, normal saline 1 L bolus, Zofran 4 mg IV, fentanyl 75 g IV and Ativan 0.5 mg IV ordered. Monitor patient. Resting comfortably after meds. Unable to get urine. 1145: Patient states she thinks she might develop write a small sample now after fluids. States that she is still doesn't feel well. 1115: Have talked with the patient and reviewed urine results. She does have 3+ ketones which would indicate some dehydration. Patient states that she still feels puny does not feel safe for home. States now that she had fallen yesterday and fell forward and feels like she pulled the muscles in her back. She does not want any x-rays as she is sure she didn' t break anything but states that she still was having some pain. I will defer to Dr. Mandel for pain control. I did discuss this with him as well as possibly for observation admission due to her not feeling well. He will accept patient for admission and observation status due to the vomiting and nausea and dehydration. He has stated that she could do tramadol 50 mg every 6 hours by mouth. This was ordered. Basic orders written by me. Admit, observation status. Patient agrees with plan. Departure Communication Time/Spoke to Admitting Phy: 12:15 Impression Impression: Primary Impression: Nausea and vomiting Qualified Codes: R11.14 - Bilious vomiting Additional Impressions: Dehydration Back strain Qualified Codes: S39.012A - Strain of muscle, fascia and tendon of lower back , initial encounter Disposition: ADMITTED INPATIENT Condition: Stable Admissions Decision to Admit Reason: Admit from ER (General) Decision to Admit/Date: Dec 05, 2016 Time/Decision to Admit Time: 12:15 Departure-Patient Inst. Referrals: RINKU MANDEL DO (PCP/Family) Primary Care Physician AROLDO MERCADO MD Dec 05, 2016 10:32
[2016-12-05 10:44] LABS: ALANINE AMINOTRANSFERASE 54 U/L (0-55); ANION GAP 17 MMOL/L (5-14); ASPARTATE AMINO TRANSFERASE 108 U/L (5-34); BLOOD UREA NITROGEN 3 MG/DL (7-18); BUN/CREATININE RATIO 5; CALCIUM 9.4 MG/DL (8.5-10.1); CARBON DIOXIDE 21 MMOL/L (21-32); CHLORIDE 102 MMOL/L (98-107); CREATININE SERUM 0.62 MG/DL (0.60-1.30); GFR ESTIMATED > 60; GLUCOSE 117 MG/DL (70-105); LIPASE 24 U/L (8-78); POTASSIUM 3.4 MMOL/L (3.6-5.0); SODIUM 140 MMOL/L (135-145)
[2016-12-05 11:49] LABS: BILIRUBIN,URINE NEGATIVE (NEGATIVE); KETONES,URINE 3+ (NEGATIVE); LEUKOCYTE ESTERASE ,URINE NEGATIVE (NEGATIVE); NITRITE,URINE NEGATIVE (NEGATIVE); PH,URINE 6 (5-9); PROTEIN,URINE 1+ (NEGATIVE); UROBILINOGEN,URINE 1 MG/DL (NORMAL)
[2016-12-05 11:58] LABS: WBC,URINE RARE /HPF; YEAST,URINE FEW /HPF
--- OUTSIDE RECORDS SUMMARY | 2016-12-05 12:28 | XMS REPORT | Clinical Summary ---
Author Author [facility] Organization [facility] Address Unknown Phone Unavailable Care Team Providers Care Cafeteria Clerk Name Role Phone PCP Unavailable Source Comments Some departments are not documenting in the electronic medical record. If you do not see the information that you expected, contact Release of Information in the Health Information Management department at [phone] for further assistance in locating additional records.[facility] Allergies Not on File Current Medications [...]
[2016-12-05 13:15] VITALS: BP 139/85
[2016-12-05] MEDS ORDERED: ONDANSETRON 4 MG/2 ML (SDV) Z0FRAN IV PRN (13:30)
[2016-12-05] MEDS: NS IV 1000 ML 1,000 ML IV SCH ×2 (13:44→23:50)
[2016-12-05] MEDS ORDERED: CATHETER FLUSH 10 ML SYR IV PRN (13:45)
[2016-12-05] MEDS ORDERED: SUCR1TAB PO (14:18)
[2016-12-05] MEDS ORDERED: ONDA4TAB11 PO (14:18)
[2016-12-05] MEDS ORDERED: ALBU18HF2 IH (14:18)
[2016-12-05 16:00] VITALS: BP 155/78
[2016-12-05] MEDS ORDERED: RT-ALBUTEROL HFA (VENTOLIN) PER PUFF IH PRN (16:00)
[2016-12-05] MEDS ORDERED: ALPRAZolam 0.5 MG (XANAX) TAB PO PRN (16:00)
[2016-12-05] MEDS ORDERED: PATIENT MAY USE OWN MEDS, ALL MC SCH (16:15)
[2016-12-05] MEDS ORDERED: RT-ALBUTEROL SULF 2.5 MG/3 ML PRE-MIX VIAL IH PRN (16:30)
[2016-12-05 20:00] VITALS: BP 174/80
[2016-12-05] MEDS ORDERED: RT-ADVAIR HFA 115/21 MCG PER PUFF IH SCH (20:00)
[2016-12-05] MEDS: CYCLOBENZAPRINE 10 MG (FLEXERIL) TAB PO SCH (20:15)
[2016-12-05] MEDS: SUCRALFATE 1 GM (CARAFATE) TAB PO SCH (20:17)
[2016-12-05] MEDS ORDERED: GABAPENTIN 300 MG (NEURONTIN) CAP PO SCH ×2 (21:00)
[2016-12-05] MEDS ORDERED: SUCRALFATE 1 GM (CARAFATE) TAB PO SCH (21:00)
[2016-12-05] MEDS ORDERED: NON-FORMULARY MEDICATION 1 EA EA (Fluticasone/Salmeterol (Advair 250-50 Diskus) 1 PUFF) INH SCH (21:00)
[2016-12-06 04:05] VITALS: BP 145/82
[2016-12-06 05:26] LABS: BASOPHILS % (AUTO) 1 % (0-10); EOSINOPHILS # (AUTO) 0.4 10^3/uL (0.0-0.3); EOSINOPHILS % (AUTO) 6 % (0-10); LYMPHOCYTES # (AUTO) 2.1 X 10^3 (1.0-4.0); LYMPHOCYTES % (AUTO) 33 % (12-44); MEAN CORPUSCULAR HEMOGLOBIN 31 PG (25-34); MEAN CORPUSCULAR HGB CONC 33 G/DL (32-36); MEAN CORPUSCULAR VOLUME 93 FL (80-99); MEAN PLATELET VOLUME 10.8 FL (7.4-10.4); MONOCYTES # (AUTO) 0.4 X 10^3 (0.0-1.0); MONOCYTES % (AUTO) 7 % (0-12); NEUTROPHILS # (AUTO) 3.3 X 10^3 (1.8-7.8); NEUTROPHILS % (AUTO) 53 % (42-75); PLATELET COUNT 124 10^3/uL (130-400); RED BLOOD COUNT 4.03 10^6/uL (4.35-5.85); RED CELL DISTRIBUTION WIDTH 15.1 % (10.0-14.5); WHITE BLOOD COUNT 6.2 10^3/uL (4.3-11.0)
[2016-12-06 05:53] LABS: ALANINE AMINOTRANSFERASE 45 U/L (0-55); ALBUMIN 3.6 GM/DL (3.2-4.5); ANION GAP 11 MMOL/L (5-14); ASPARTATE AMINO TRANSFERASE 79 U/L (5-34); BILIRUBIN,TOTAL 1.4 MG/DL (0.1-1.0); BLOOD UREA NITROGEN 3 MG/DL (7-18); BUN/CREATININE RATIO 6; CALCIUM 8.6 MG/DL (8.5-10.1); CARBON DIOXIDE 25 MMOL/L (21-32); CHLORIDE 102 MMOL/L (98-107); CREATININE SERUM 0.54 MG/DL (0.60-1.30); GFR ESTIMATED > 60; GLUCOSE 92 MG/DL (70-105); POTASSIUM 3.4 MMOL/L (3.6-5.0); SODIUM 138 MMOL/L (135-145); TOTAL PROTEIN 7.9 GM/DL (6.4-8.2)
[2016-12-06] MEDS: CYCLOBENZAPRINE 10 MG (FLEXERIL) TAB PO SCH (06:34)
[2016-12-06] MEDS ORDERED: PANTOPRAZOLE 40 MG (PROTONIX) TAB PO SCH ×2 (07:00)
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
[2016-12-06] MEDS ORDERED: KCL 10 MEQ TAB (MICRO K) PO NR (08:15)
[2016-12-06 08:27] VITALS: BP 112/70
[2016-12-06] MEDS ORDERED: amLODIPine 10 MG (NORVASC) TAB PO SCH ×2 (09:00)
[2016-12-06] MEDS: SUCRALFATE 1 GM (CARAFATE) TAB PO SCH (09:18)
--- NOTE | 2016-12-06 10:23 | Diagnostic Imaging Report ---
PA and lateral chest at 9:59 AM. INDICATION: Cough. The heart size is within normal limits and stable when compared to 10/07/2016. The lungs are clear. There is no sign of failure, pneumonia, or a pleural effusion to suggest an acute abnormality. The mediastinum is not widened. The osseous structures are intact. IMPRESSION: There is no evidence for active disease. Dictated by: Dictated on workstation # [id number]
[2016-12-06 12:11] VITALS: BP 114/69
--- NOTE | 2016-12-07 07:25 | Clinic Account Progress/Dx ---
Clinic Account Progress/Dx DIAGNOSIS: Time Seen by Provider: 07:15 Diagnosis nausea and vomiting. Diarrhea. Acute gastroenteritis. Hypokalemia. Dehydration. fall Back strain. Dizziness. History of hepatitis C. History of cirrhosis. COPD. Tobaccoism. Alcoholism. RINKU MANDEL DO Dec 07, 2016 07:25
== END 2016-12-06 12:30 | disposition home or self-care (01) ==
LOC: EDUNIT# 09:53 → ER 09:55 → UNDOADMOB 12:16 → 4TH 12:16
PROVIDERS: ADMIT Family Medicine; ATTEND Family Medicine
DX: R11.2 Nausea with vomiting, unspecified (principal); R19.7 Diarrhea, unspecified; S39.012A Strain of muscle, fascia and tendon of lower back, initial encounter; I10 Essential (primary) hypertension; J44.9 Chronic obstructive pulmonary disease, unspecified; B18.2 Chronic viral hepatitis C; K76.89 Other specified diseases of liver; F10.20 Alcohol dependence, uncomplicated; F17.210 Nicotine dependence, cigarettes, uncomplicated; Z79.899 Other long term (current) drug therapy; Z91.19 Patient's noncompliance with other medical treatment and regimen; X50.9XXA Other and unspecified overexertion or strenuous movements or postures, initial encounter; Y92.009 Unspecified place in unspecified non-institutional (private) residence as the place of occurrence of the external cause; Y99.8 Other external cause status
CPT/HCPCS: 36415; 71020; 80053; 80320; 81000; 83690; 85025; 86308; 96361; 96374; 96375; G0378

== ENCOUNTER 2017-01-10 11:07 | Emergency (ER) | payer MEDICARE, MEDICAID ==
[~2017-01-10] VITALS: Ht 160 cm; Wt 60.8 kg
[~2017-01-10 11:07] MED LIST changes: +ALBU18HF2 IH; +OXYC-529 PO; -OXYC5TAB71 PO
--- NOTE | 2017-01-10 11:17 | ED Abdominal Pain ---
General Stated Complaint: STOMACH PAIN Source of Information: Patient Exam Limitations: No Limitations History of Present Illness Time Seen By Provider: 11:15 Initial Comments To ER with 3 days worth of epigastric abdominal pain. She states this pain is chronic for worsening usual for the past 3 days and her tramadol at home is not helping. Nausea but no vomiting. No fevers or chills but she does have hepatitis C and does not take her bony or any treatment for this. She denies any alcohol use to me. After I leave the room she then reports to the nurse that she did drink some beer this morning to help the pain. Timing/Duration: 3-4 Days Severity/Quality: Moderate Location: Epigastric Radiation: No Radiation Activities at Onset: None Associated Symptoms: Denies Symptoms Allergies and Home Medications Allergies Coded Allergies: codeine (Verified Allergy, Unknown, 10/07/16) Home Medications Albuterol Sulfate 18 Gm Hfa.aer.ad, 2 PUFF IH Q4H PRN for SHORTNESS OF BREATH, ( Reported) Alprazolam 0.5 Mg Tablet, 0.5 MG PO HS PRN for ANXIETY, (Reported) Amlodipine Besylate 10 Mg Tablet, 10 MG PO DAILY, (Reported) Cyclobenzaprine HCl 10 Mg Tablet, 10 MG PO BID, (Reported) Fluticasone/Salmeterol 1 Each Blst.w.dev, 1 PUFF INH BID, (Reported) Gabapentin 300 Mg Capsule, 600 MG PO HS, (Reported) TAKES 2 (300MG) CAPSULES Ondansetron 4 Mg Tab.rapdis, 4 MG PO Q6H PRN for NAUSEA/VOMITING-1ST LINE, ( Reported) Pantoprazole Sodium 40 Mg Tablet.dr, 40 MG PO DAILY, (Reported) Sucralfate 1 Gm Tablet, 2 GM PO BID, (Reported) TAKES 2 (1 GM) TABLETS Tramadol HCl 50 Mg Tablet, 50 MG PO BID PRN for PAIN-MILD, (Reported) Review of Systems Constitutional: see HPI EENTM: No Symptoms Reported Respiratory: No Symptoms Reported Cardiovascular: No Symptoms Reported Gastrointestinal: See HPI, Abdominal Pain, Denies Constipated, Denies Diarrhea , Nausea Genitourinary: No Symptoms Reported Musculoskeletal: no symptoms reported Skin: no symptoms reported Psychiatric/Neurological: No Symptoms Reported Endocrine: No Symptoms Reported Past Yewnlfx-Jablcz-Ktxbww Hx Patient Social History Alcohol Beverage of Choice: Beer Drug of Choice: MARIJUANA Type Used: Cigarettes 2nd Hand Smoke Exposure: Yes Recent Foreign Travel: No Contact w/Someone Who Travel: No Recent Hopitalizations: Yes Immunizations Up To Date Tetanus Booster (TDap): More than 5yrs PED Vaccines UTD: No Date of Pneumonia Vaccine: Jul 22, 2008 Date of Influenza Vaccine: Jan 17, 2016 Seasonal Allergies Seasonal Allergies: Yes Surgeries History of Surgeries: Yes Surgeries: Abdominal, Adenoidectomy, Orthopedic, Tonsillectomy Respiratory History of Respiratory Disorde: Yes Respiratory Disorders: Asthma, COPD Currently Using CPAP: No Currently Using BIPAP: No Cardiovascular History of Cardiac Disorders: Yes Cardiac Disorders: Heart Murmur, Hypertension Neurological History of Neurological Disord: Yes 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 System Hx 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 Disorders: Yes Sexually Transmitted Disease: No HIV/AIDS: No 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 Disorders: 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 Genitourinary History of Genitourinary Disor: No Genitourinary Disorders: Kidney Stones Gastrointestinal History of Gastrointestinal Di: Yes (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; ALCOHOLIC GASTRITIS) Gastrointestinal Disorders: Gastroesophageal Reflux, Liver Disease/Jaundice, Gastrointestinal Bleed, Esophageal Varices, Hepatitis, Cirrhosis Musculoskeletal History of Musculoskeletal Dis: Yes Musculoskeletal Disorders: Arthritis, Fibromyalgia, Chronic Back Pain Endocrine History of Endocrine Disorders: No HEENT History of HEENT Disorders: No Cancer History of Cancer: No Psychosocial History of Psychiatric Problem: Yes Behavioral Health Disorders: ADD/ADHD, Anxiety Integumentary History of Skin or Integumenta: No Blood Transfusions History of Blood Disorders: No Adverse Reaction to a Blood Tr: No Family Medical History Significant Family History: No Pertinent Family Hx Family Medial History: Alcoholism G8 SISTER Cardiovascular disease 19 FATHER Colon cancer G8 BROTHER Diabetes mellitus G8 BROTHER Drug abuse G8 SISTER FH: cancer 19 MOTHER (BRAIN) G8 BROTHER Glaucoma 19 FATHER Hypertension 19 FATHER Myocardial infarction 19 FATHER Psychosocial problem 19 FATHER G8 BROTHER G8 SISTER No Family History of: AIDS Abdominal aortic aneurysm Alzheimer's disease Arthritis Asthma Completed stroke Parkinson's disease Respiratory disorder Seizure disorder Severe allergy Thyroid disease Physical Exam Vital Signs VS - Last 72 Hours, by Label 01/10/17 11:11 Temp 96.7 Pulse 102 Resp 18 B/P (MAP) 126/67 Pulse Ox 98 O2 Delivery Room Air Capillary Refill : General Appearance: WD/WN, no apparent distress HEENT: PERRL/EOMI, normal ENT inspection Neck: non-tender, full range of motion Respiratory: normal breath sounds, no respiratory distress, no accessory muscle use Gastrointestinal: normal bowel sounds, soft, tenderness Extremities: normal range of motion, non-tender, normal inspection Neurologic/Psychiatric: alert, normal mood/affect, oriented x 3 Skin: normal color, warm/dry Progress/Results/Core Measures Results/Orders Lab Results Laboratory Tests Test 01/10/17 11:20 01/10/17 13:05 Range/Units White Blood Count 7.5 4.3-11.0 10^3/uL Red Blood Count 4.19 L 4.35-5.85 10^6/uL Hemoglobin 13.1 11.5-16.0 G/DL Hematocrit 40 35-52 % Mean Corpuscular Volume 94 80-99 FL Mean Corpuscular Hemoglobin 31 25-34 PG Mean Corpuscular Hemoglobin Concent 33 32-36 G/DL Red Cell Distribution Width 16.0 H 10.0-14.5 % Platelet Count 155 130-400 10^3/uL Mean Platelet Volume 9.9 7.4-10.4 FL Neutrophils (%) (Auto) 59 42-75 % Lymphocytes (%) (Auto) 27 12-44 % Monocytes (%) (Auto) 10 0-12 % Eosinophils (%) (Auto) 3 0-10 % Basophils (%) (Auto) 1 0-10 % Neutrophils # (Auto) 4.4 1.8-7.8 X 10^3 Lymphocytes # (Auto) 2.0 1.0-4.0 X 10^3 Monocytes # (Auto) 0.7 0.0-1.0 X 10^3 Eosinophils # (Auto) 0.2 0.0-0.3 10^3/uL Basophils # (Auto) 0.1 0.0-0.1 10^3/uL Prothrombin Time 14.6 12.2-14.7 SEC INR Comment 1.1 0.8-1.4 Sodium Level 135 135-145 MMOL/L Potassium Level 3.5 L 3.6-5.0 MMOL/L Chloride Level 98 98-107 MMOL/L Carbon Dioxide Level 29 21-32 MMOL/L Anion Gap 8 5-14 MMOL/L Blood Urea Nitrogen 4 L 7-18 MG/DL Creatinine 0.63 0.60-1.30 MG/DL Estimat Glomerular Filtration Rate > 60 BUN/Creatinine Ratio 6 Glucose Level 114 H 70-105 MG/DL Calcium Level 8.7 8.5-10.1 MG/DL Total Bilirubin 1.3 H 0.1-1.0 MG/DL Aspartate Amino Transf (AST/SGOT) 91 H 5-34 U/L Alanine Aminotransferase (ALT/SGPT) 53 0-55 U/L Alkaline Phosphatase 131 40-136 U/L Total Protein 8.4 H 6.4-8.2 GM/DL Albumin 3.6 3.2-4.5 GM/DL Lipase 13 8-78 U/L Serum Alcohol < 10 <10 MG/DL Urine Color YELLOW Urine Clarity CLEAR Urine pH 8 5-9 Urine Specific Palmer 1.010 L 1.016-1.022 Urine Protein NEGATIVE NEGATIVE Urine Glucose (UA) NEGATIVE NEGATIVE Urine Ketones NEGATIVE NEGATIVE Urine Nitrite NEGATIVE NEGATIVE Urine Bilirubin NEGATIVE NEGATIVE Urine Urobilinogen NORMAL NORMAL MG/DL Urine Leukocyte Esterase NEGATIVE NEGATIVE Urine RBC (Auto) NEGATIVE NEGATIVE Urine RBC NONE /HPF Urine WBC NONE /HPF Urine Squamous Epithelial Cells 0-2 /HPF Urine Crystals NONE /LPF Urine Bacteria NEGATIVE /HPF Urine Casts NONE /LPF Urine Mucus NEGATIVE /LPF Urine Culture Indicated NO Urine Opiates Screen NEGATIVE NEGATIVE Urine Oxycodone Screen NEGATIVE NEGATIVE Urine Methadone Screen NEGATIVE NEGATIVE Urine Propoxyphene Screen NEGATIVE NEGATIVE Urine Barbiturates Screen NEGATIVE NEGATIVE Ur Tricyclic Antidepressants Screen NEGATIVE NEGATIVE Urine Phencyclidine Screen NEGATIVE NEGATIVE Urine Amphetamines Screen NEGATIVE NEGATIVE Urine Methamphetamines Screen NEGATIVE NEGATIVE Urine Benzodiazepines Screen NEGATIVE NEGATIVE Urine Cocaine Screen NEGATIVE NEGATIVE Urine Cannabinoids Screen POSITIVE H NEGATIVE My Orders Orders - IVY HARDY APRN Cbc With Automated Diff (01/10/17 11:14) Comprehensive Metabolic Panel (01/10/17 11:14) Lipase (01/10/17 11:14) Saline Lock/Iv-Start (01/10/17 11:14) Ct Abdomen/Pelvis W (01/10/17 11:14) Ua Culture If Indicated (01/10/17 11:17) Alcohol (01/10/17 11:17) Iohexol Injection (Omnipaque 350 Mg/Ml 1 (01/10/17 11:30) Ns (Ivpb) (Sodium Chloride 0.9% Ivpb Bag (01/10/17 11:30) Lidocaine 2% Viscous 15 Ml (Xylocaine Vi (01/10/17 11:30) Antacid Suspension (Mylanta Suspension (01/10/17 11:30) Ketorolac Injection (Toradol Injection) (01/10/17 11:30) Protime With Inr (01/10/17 11:24) Drug Screen Stat (Urine) (01/10/17 11:39) Fentanyl Injection (Sublimaze Injection (01/10/17 12:30) Us Gallbladder [id number] (01/10/17 12:26) Medications Given in ED Current Medications Medications Dose Ordered Sig/Pino Route Start Time Stop Time Status Last Admin Dose Admin Al Hydrox/Mg Hydrox/Simethicone 30 ml ONCE ONCE PO 01/10/17 11:30 01/10/17 11:31 DC 01/10/17 11:28 30 ML Fentanyl Citrate 50 mcg ONCE ONCE IVP 01/10/17 12:30 01/10/17 12:31 DC 01/10/17 13:05 50 MCG Iohexol 100 ml ONCE ONCE IV 01/10/17 11:30 01/10/17 11:47 DC 01/10/17 12:14 100 ML Ketorolac Tromethamine 30 mg ONCE ONCE IVP 01/10/17 11:30 01/10/17 11:31 DC 01/10/17 11:30 30 MG Lidocaine HCl 15 ml ONCE ONCE PO 01/10/17 11:30 01/10/17 11:31 DC 01/10/17 11:28 15 ML Sodium Chloride 100 ml ONCE ONCE IV 01/10/17 11:30 01/10/17 11:47 DC 01/10/17 12:14 100 ML Vital Signs/I&O Vital Sign - Last 12Hours 01/10/17 11:11 Temp 96.7 Pulse 102 Resp 18 B/P (MAP) 126/67 Pulse Ox 98 O2 Delivery Room Air Diagnostic Imaging Diagonstic Imaging: CT Comments NAME: LAYNEAMANDA K [facility] REC#: [id number] PT STATUS: REG ER : 1965 PHYSICIAN: IVY HARDY APRN ADMIT DATE: 01/10/17/ER Draft Date of Exam:01/10/17 CT ABDOMEN/PELVIS W PROCEDURE: CT abdomen and pelvis with contrast. TECHNIQUE: Multiple contiguous axial images were obtained through the abdomen and pelvis after administration of intravenous contrast. INDICATION: Upper abdominal pain, history of COPD. COMPARISON: Exam compared with study of 10/07/2016. FINDINGS: There is heterogeneous fatty infiltration of the liver, the liver having a somewhat nodular capsular surface, and there is large opacified recanalized umbilical vein in communication with the intrahepatic left portal vein. There is opacification of the intra and extrahepatic portal veins however directional flow cannot be assessed at CT. The spleen size is felt to be within normal limits. There are paraesophageal vascular collaterals. The constellation of findings most suggestive of cirrhosis and sequelae of portal venous hypertension. There is trace ascites. There was no loculated fluid collection. There is likely focal fatty intensification of the liver adjacent to the gallbladder. No pathological biliary ductal dilatation. The adrenals are negative. The kidneys are negative. Pancreas is negative. The kidneys are unobstructed. There is some borderline thickening of the aburto and mucosal edema in the colon at the distal ascending level through the splenic flexure and proximal transverse segment. The left colon is undistended, limiting its evaluation. No substantial pericolonic edema. This can be seen merely from portal hypertension but also secondary to hypoalbuminemia. The possibility of a mild primary colitis however could not be definitively excluded. There is no pneumatosis. There is no free air. There is no bowel obstruction. The uterus, adnexa, and urinary bladder appeared normal. There is no appendicitis or diverticulitis. IMPRESSION: Findings of cirrhosis and sequelae of portal venous hypertension with ascites. Vascular collateralization, not substantially changed from previous exams. There is some mild and borderline thickening of the colon, most notably at its proximal aspect and considerations above. No bowel, biliary, or urinary tract obstruction. No loculated collection or abscess. No viscus perforation. Dictated on workstation # [id number] Dict: 01/10/17 1230 Trans: 01/10/17 1241 [id number] Interpreted by: CRISTAL CHAN Electronically signed by: NAME: AMANDA TILLMAN [facility] REC#: [id number] PT STATUS: REG ER : 1965 PHYSICIAN: IVY HARDY APRN ADMIT DATE: 01/10/17/ER Draft Date of Exam:01/10/17 US GALLBLADDER [id number] PROCEDURE: US Gallbladder. TECHNIQUE: Multiple real-time grayscale images were obtained over the right upper quadrant in various projections. INDICATION: Abdominal pain. FINDINGS: The liver parenchyma is slightly heterogeneous without a discrete mass. There is hepatopetal flow in the portal vein. The CBD is 6 mm in caliber. The gallbladder demonstrates thickening of its wall to 6 mm and minimal amount of pericholecystic fluid. There is a small amount of ascites however and this is probably ascites related. Hyperechoic lesions are seen near the gallbladder neck that are nonmobile. These could relate to polyps or adherent sludge. No shadowing is seen to suggest a stone. Sonographic Morrow's sign is negative. The pancreas is largely obscured. The right kidney is 12.4 cm in length with no hydronephrosis or focal lesion. IMPRESSION: 1. The liver is coarse likely related to underlying cirrhosis with no focal mass seen. 2. Small ascites. 3. The gallbladder wall thickening and pericholecystic fluid is probably secondary to liver disease and ascites rather than primarily cholecystitis related. Echogenic material near the wall may relate to a flat polyp or adherent sludge. Dictated on workstation # [id number] Dict: 01/10/17 1333 Trans: 01/10/17 1345 [id number] Interpreted by: ELIZABETH GOFF MD Electronically signed by: Departure Communication (Admissions) Progress Notes requests xanax and pain medication multiple times during stay. Impression Impression: Primary Impression: Cirrhosis Additional Impression: Hepatitis C Disposition: 01 HOME, SELF-CARE Condition: Stable Departure-Patient Inst. Decision time for Depature: 13:15 Referrals: RINKU MANDEL DO (PCP/Family) Primary Care Physician Patient Instructions: Cirrhosis (DC) Add. Discharge Instructions: 1. Continue home medications 2. Follow up with Dr Mandel 3. Copy Copies To 1: RINKU MANDEL PETER J APRN Jan 10, 2017 11:17
[2017-01-10 11:28] LABS: BASOPHILS # (AUTO) 0.1 10^3/uL (0.0-0.1); BASOPHILS % (AUTO) 1 % (0-10); EOSINOPHILS # (AUTO) 0.2 10^3/uL (0.0-0.3); EOSINOPHILS % (AUTO) 3 % (0-10); LYMPHOCYTES % (AUTO) 27 % (12-44); MEAN CORPUSCULAR HEMOGLOBIN 31 PG (25-34); MEAN CORPUSCULAR HGB CONC 33 G/DL (32-36); MEAN CORPUSCULAR VOLUME 94 FL (80-99); MEAN PLATELET VOLUME 9.9 FL (7.4-10.4); MONOCYTES # (AUTO) 0.7 X 10^3 (0.0-1.0); MONOCYTES % (AUTO) 10 % (0-12); NEUTROPHILS # (AUTO) 4.4 X 10^3 (1.8-7.8); NEUTROPHILS % (AUTO) 59 % (42-75); PLATELET COUNT 155 10^3/uL (130-400); RED BLOOD COUNT 4.19 10^6/uL (4.35-5.85); WHITE BLOOD COUNT 7.5 10^3/uL (4.3-11.0)
[2017-01-10] MEDS ORDERED: ANTACID SUSP 30 ML UDC (MYLANTA) PO ONE (11:30)
[2017-01-10] MEDS ORDERED: IOHEXOL 350 MG/ML 100 ML (OMNIPAQUE 350) VIAL IV ONE (11:30)
[2017-01-10] MEDS ORDERED: NS 100 ML (IVPB) BAG IV ONE (11:30)
[2017-01-10] MEDS ORDERED: KETOROLAC 30 MG/ML VIAL IVP ONE (11:30)
[2017-01-10] MEDS ORDERED: LIDOCAINE 2% VISCOUS 15 ML UDC PO ONE (11:30)
[2017-01-10 11:45] LABS: INR 1.1 (0.8-1.4); PROTHROMBIN TIME PATIENT 14.6 SEC (12.2-14.7)
[2017-01-10 11:57] LABS: ALANINE AMINOTRANSFERASE 53 U/L (0-55); ALBUMIN 3.6 GM/DL (3.2-4.5); ALCOHOL < 10 MG/DL (<10); ANION GAP 8 MMOL/L (5-14); ASPARTATE AMINO TRANSFERASE 91 U/L (5-34); BILIRUBIN,TOTAL 1.3 MG/DL (0.1-1.0); BLOOD UREA NITROGEN 4 MG/DL (7-18); BUN/CREATININE RATIO 6; CALCIUM 8.7 MG/DL (8.5-10.1); CARBON DIOXIDE 29 MMOL/L (21-32); CHLORIDE 98 MMOL/L (98-107); CREATININE SERUM 0.63 MG/DL (0.60-1.30); GFR ESTIMATED > 60; GLUCOSE 114 MG/DL (70-105); LIPASE 13 U/L (8-78); POTASSIUM 3.5 MMOL/L (3.6-5.0); SODIUM 135 MMOL/L (135-145); TOTAL PROTEIN 8.4 GM/DL (6.4-8.2)
[2017-01-10] MEDS ORDERED: fentaNYL INJECTION 100 MCG/2 ML AMP IVP ONE (12:30)
--- NOTE | 2017-01-10 12:42 | Diagnostic Imaging Report ---
PROCEDURE: CT abdomen and pelvis with contrast. TECHNIQUE: Multiple contiguous axial images were obtained through the abdomen and pelvis after administration of intravenous contrast. INDICATION: Upper abdominal pain, history of COPD. COMPARISON: Exam compared with study of 10/07/2016. FINDINGS: There is heterogeneous fatty infiltration of the liver, the liver having a somewhat nodular capsular surface, and there is large opacified recanalized umbilical vein in communication with the intrahepatic left portal vein. There is opacification of the intra and extrahepatic portal veins however directional flow cannot be assessed at CT. The spleen size is felt to be within normal limits. There are paraesophageal vascular collaterals. The constellation of findings most suggestive of cirrhosis and sequelae of portal venous hypertension. There is trace ascites. There was no loculated fluid collection. There is likely focal fatty intensification of the liver adjacent to the gallbladder. No pathological biliary ductal dilatation. The adrenals are negative. The kidneys are negative. Pancreas is negative. The kidneys are unobstructed. There is some borderline thickening of the aburto and mucosal edema in the colon at the distal ascending level through the splenic flexure and proximal transverse segment. The left colon is undistended, limiting its evaluation. No substantial pericolonic edema. This can be seen merely from portal hypertension but also secondary to hypoalbuminemia. The possibility of a mild primary colitis however could not be definitively excluded. There is no pneumatosis. There is no free air. There is no bowel obstruction. The uterus, adnexa, and urinary bladder appeared normal. There is no appendicitis or diverticulitis. IMPRESSION: Findings of cirrhosis and sequelae of portal venous hypertension with ascites. Vascular collateralization, not substantially changed from previous exams. There is some mild and borderline thickening of the colon, most notably at its proximal aspect and considerations above. No bowel, biliary, or urinary tract obstruction. No loculated collection or abscess. No viscus perforation. Dictated by: Dictated on workstation # [id number]
[2017-01-10 13:21] LABS: BILIRUBIN,URINE NEGATIVE (NEGATIVE); KETONES,URINE NEGATIVE (NEGATIVE); LEUKOCYTE ESTERASE ,URINE NEGATIVE (NEGATIVE); NITRITE,URINE NEGATIVE (NEGATIVE); PH,URINE 8 (5-9); PROTEIN,URINE NEGATIVE (NEGATIVE); UROBILINOGEN,URINE NORMAL (NORMAL)
[2017-01-10 13:36] LABS: SQUAMOUS EPITHELIAL CELL,UR 0-2 /HPF
--- NOTE | 2017-01-10 13:46 | Diagnostic Imaging Report ---
PROCEDURE: US Gallbladder. TECHNIQUE: Multiple real-time grayscale images were obtained over the right upper quadrant in various projections. INDICATION: Abdominal pain. FINDINGS: The liver parenchyma is slightly heterogeneous without a discrete mass. There is hepatopetal flow in the portal vein. The CBD is 6 mm in caliber. The gallbladder demonstrates thickening of its wall to 6 mm and minimal amount of pericholecystic fluid. There is a small amount of ascites however and this is probably ascites related. Hyperechoic lesions are seen near the gallbladder neck that are nonmobile. These could relate to polyps or adherent sludge. No shadowing is seen to suggest a stone. Sonographic Morrow's sign is negative. The pancreas is largely obscured. The right kidney is 12.4 cm in length with no hydronephrosis or focal lesion. IMPRESSION: 1. The liver is coarse likely related to underlying cirrhosis with no focal mass seen. 2. Small ascites. 3. The gallbladder wall thickening and pericholecystic fluid is probably secondary to liver disease and ascites rather than primarily cholecystitis related. Echogenic material near the wall may relate to a flat polyp or adherent sludge. Dictated by: Dictated on workstation # [id number]
[2017-01-10 14:02] VITALS: BP 126/67
== END 2017-01-10 14:02 | disposition home or self-care (01) ==
LOC: EDUNIT# 11:07 → ER 11:09
DX: F41.9 Anxiety disorder, unspecified; B19.20 Unspecified viral hepatitis C without hepatic coma; J44.9 Chronic obstructive pulmonary disease, unspecified; Z87.442 Personal history of urinary calculi; K21.9 Gastro-esophageal reflux disease without esophagitis; K74.60 Unspecified cirrhosis of liver; I10 Essential (primary) hypertension; F90.9 Attention-deficit hyperactivity disorder, unspecified type; Z91.19 Patient's noncompliance with other medical treatment and regimen; Z90.89 Acquired absence of other organs
CPT/HCPCS: 36415; 74177; 76705; 80053; 80306; 80320; 81000; 83690; 85025; 85610; 96374; 96375

== ENCOUNTER 2017-03-27 09:52 | Emergency (ER) | payer MEDICARE, MEDICAID ==
[~2017-03-27] VITALS: Ht 160 cm; Wt 58.1 kg
--- OUTSIDE RECORDS SUMMARY | 2017-03-27 09:59 | XMS REPORT | Clinical Summary ---
Author Author [facility] Organization [facility] Address Unknown Phone Unavailable Care Team Providers Care Research Administrator Name Role Phone PCP Unavailable Source Comments Some departments are not documenting in the electronic medical record. If you do not see the information that you expected, contact Release of Information in the Health Information Management department at [phone] for further assistance in locating additional records.[facility] Allergies Not on File Current Medications [...] 2003 COLORECTAL CANCER 2013 SCREENING INFLUENZA VACCINE 11/21/2016 Results Not on filefrom Last 3 Months
--- NOTE | 2017-03-27 11:09 | ED GI ---
General Chief Complaint: Abdominal/GI Problems Stated Complaint: VOMITED BLOOD Nursing Triage Note: AMB TO ED C/O ABD PAIN LAST NIGHT VOMITED X2 AND NOTICED IT HAD BLOOD IN IT. THINKS SHE MAY OF HAD A FEVER NO WAY TO TAKE HER TEMP BUT SHE REPORTS IT FELT LIKE HE WAS AROUND 102. Sepsis Screen: No Definite Risk Source of Information: Patient Exam Limitations: No Limitations History of Present Illness Time Seen By Provider: 11:09 Initial Comments 52-year-old female patient presents to the emergency department with complaints of epigastric pain and hematemesis. States she has not vomited blood today. Vomited last night 2 with for bright red blood and clots noted. She reports a h/o vomiting blood from esophageal varices. Patient does have a history of cirrhosis and ETOH abuse. Has been "clean" for quite some time. Does have a h/ o IV drug use, but has not used in approximately 20 years. Patient does think she had a temperature last night, but did not verify the temperature with a thermometer. States she felt like her body was around 102F. Timing/Duration: 12 Hours Severity/Quality: Stabbing Location: Epigastric Radiation: No Radiation Activities at Onset: Other (vomiting) Modifying Factors: Worsens With Eating, Worsens With Vomiting Allergies and Home Medications Allergies Coded Allergies: codeine (Verified Allergy, Unknown, 10/07/16) Home Medications Albuterol Sulfate 18 Gm Hfa.aer.ad, 2 PUFF IH Q4H PRN for SHORTNESS OF BREATH, ( Reported) Alprazolam 0.5 Mg Tablet, 0.5 MG PO HS PRN for ANXIETY, (Reported) Amlodipine Besylate 10 Mg Tablet, 10 MG PO DAILY, (Reported) Cyclobenzaprine HCl 10 Mg Tablet, 10 MG PO BID, (Reported) Fluticasone/Salmeterol 1 Each Blst.w.dev, 1 PUFF INH BID, (Reported) Gabapentin 300 Mg Capsule, 600 MG PO HS, (Reported) TAKES 2 (300MG) CAPSULES Ondansetron 4 Mg Tab.rapdis, 4 MG PO Q6H PRN for NAUSEA/VOMITING-1ST LINE, ( Reported) Ondansetron 8 Mg Tab.rapdis, 8 MG PO Q6H PRN for NAUSEA/VOMITING-1ST LINE, #10 Ref 0 Prescribed by: MARTIN HOLLINGSWORTH on 03/27/17 1238 Pantoprazole Sodium 40 Mg Tablet.dr, 40 MG PO DAILY, (Reported) Pantoprazole Sodium 40 Mg Tablet.dr, 40 MG PO BID, #30 Ref 0 Prescribed by: MARTIN HOLLINGSWORTH on 03/27/17 1238 Sucralfate 1 Gm Tablet, 2 GM PO BID, (Reported) TAKES 2 (1 GM) TABLETS Sucralfate 1 Gm/10 Ml Oral.susp, 1 GM PO ACHS, #560 Ref 0 Prescribed by: MARTIN HOLLINGSWORTH on 03/27/17 1238 Tramadol HCl 50 Mg Tablet, 50 MG PO BID PRN for PAIN-MILD, (Reported) Review of Systems Constitutional: see HPI, No diaphoresis, No dizziness, fever (subjec) Respiratory: Cough (chronic cough due to COPD`), Denies Orthopnea, Denies Shortness of Air, Denies Wheezing Cardiovascular: Denies Chest Pain, Denies Edema, Denies Lightheadedness, Denies Palpitations, Denies Syncope Gastrointestinal: See HPI, Abdominal Pain, Denies Blood Streaked Stools, Denies Constipated, Denies Diarrhea, Denies Difficulty Swallowing, Nausea, Poor Appetite, Denies Poor Fluid Intake, Denies Rectal Bleeding, Vomiting, Other ( hematemesis) Genitourinary: Denies Burning, Denies Frequency, Denies Flank Pain, Denies Hematuria, Denies Pain Musculoskeletal: no symptoms reported Skin: no symptoms reported Psychiatric/Neurological: No Symptoms Reported All Other Systems Reviewed Negative Unless Noted: Yes (Negative excepted noted.) Past Antgody-Exduxd-Iymzaz Hx Patient Social History Alcohol Use: Occasionally Uses Number of Drinks Today: AA Alcohol Beverage of Choice: Beer Recreational Drug Use: Yes (PRESENT AND PAST IV DRUG, SMOKING THC, ALCOHOL, NARCOTICS) Drug of Choice: MARIJUANA Smoking Status: Current Everyday Smoker Type Used: Cigarettes 2nd Hand Smoke Exposure: Yes Recent Foreign Travel: No Contact w/Someone Who Travel: No Recent Infectious Disease Expo: No Recent Hopitalizations: Yes Immunizations Up To Date Tetanus Booster (TDap): More than 5yrs PED Vaccines UTD: No Date of Pneumonia Vaccine: Jul 22, 2008 Date of Influenza Vaccine: Jan 17, 2016 Seasonal Allergies Seasonal Allergies: Yes Surgeries History of Surgeries: Yes Surgeries: Abdominal, Adenoidectomy, Orthopedic, Tonsillectomy Respiratory History of Respiratory Disorde: Yes Respiratory Disorders: Asthma, COPD Currently Using CPAP: No Currently Using BIPAP: No Cardiovascular History of Cardiac Disorders: Yes Cardiac Disorders: Heart Murmur, Hypertension Neurological History of Neurological Disord: Yes 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 System Hx 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 Disorders: Yes Sexually Transmitted Disease: No HIV/AIDS: No 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 Disorders: Denies 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 Genitourinary History of Genitourinary Disor: No Genitourinary Disorders: Kidney Stones Gastrointestinal History of Gastrointestinal Di: Yes (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; ALCOHOLIC GASTRITIS) Gastrointestinal Disorders: Gastroesophageal Reflux, Liver Disease/Jaundice, Gastrointestinal Bleed, Esophageal Varices, Hepatitis, Cirrhosis Musculoskeletal History of Musculoskeletal Dis: Yes Musculoskeletal Disorders: Arthritis, Fibromyalgia, Chronic Back Pain Endocrine History of Endocrine Disorders: No HEENT History of HEENT Disorders: No Cancer History of Cancer: No Psychosocial History of Psychiatric Problem: Yes Behavioral Health Disorders: ADD/ADHD, Anxiety Integumentary History of Skin or Integumenta: No Blood Transfusions History of Blood Disorders: No Adverse Reaction to a Blood Tr: No Reviewed Nursing Assessment Reviewed/Agree w Nursing PMH: Yes Family Medical History Significant Family History: No Pertinent Family Hx Family Medial History: Alcoholism G8 SISTER Cardiovascular disease 19 FATHER Colon cancer G8 BROTHER Diabetes mellitus G8 BROTHER Drug abuse G8 SISTER FH: cancer 19 MOTHER (BRAIN) G8 BROTHER Glaucoma 19 FATHER Hypertension 19 FATHER Myocardial infarction 19 FATHER Psychosocial problem 19 FATHER G8 BROTHER G8 SISTER No Family History of: AIDS Abdominal aortic aneurysm Alzheimer's disease Arthritis Asthma Completed stroke Parkinson's disease Respiratory disorder Seizure disorder Severe allergy Thyroid disease Physical Exam Vital Signs VS - Last 72 Hours, by Label 03/27/17 10:15 Temp 97.9 Pulse 89 Resp 18 B/P (MAP) 128/84 (99) O2 Delivery Room Air Capillary Refill : Less Than 3 Seconds General Appearance: no apparent distress, other (chronically ill appearing female.) HEENT: PERRL/EOMI, pharynx normal Neck: supple, normal inspection Respiratory: no respiratory distress, no accessory muscle use, crackles ( expiratory crackles bilaterally.), No rales, No rhonchi, No stridor, No wheezing , expiration Cardiovascular: normal peripheral pulses, regular rate, rhythm, no edema, no murmur Gastrointestinal: normal bowel sounds, soft, distended, guarding (epigastric guarding), No rebound, tenderness (TTP in the BUQ and epigastrium), hepatomegaly Extremities: no pedal edema, normal capillary refill Back: normal inspection Neurologic/Psychiatric: alert, normal mood/affect, oriented x 3 Skin: normal color, warm/dry Progress/Results/Core Measures Results/Orders Lab Results Laboratory Tests Test 03/27/17 11:05 03/27/17 11:25 Range/Units Sodium Level 139 135-145 MMOL/L Potassium Level 4.3 3.6-5.0 MMOL/L Chloride Level 104 98-107 MMOL/L Carbon Dioxide Level 28 21-32 MMOL/L Anion Gap 7 5-14 MMOL/L Blood Urea Nitrogen 10 7-18 MG/DL Creatinine 0.66 0.60-1.30 MG/DL Estimat Glomerular Filtration Rate > 60 BUN/Creatinine Ratio 15 Glucose Level 105 70-105 MG/DL Calcium Level 9.2 8.5-10.1 MG/DL Total Bilirubin 0.6 0.1-1.0 MG/DL Aspartate Amino Transf (AST/SGOT) 45 H 5-34 U/L Alanine Aminotransferase (ALT/SGPT) 24 0-55 U/L Alkaline Phosphatase 160 H 40-136 U/L Total Protein 8.5 H 6.4-8.2 GM/DL Albumin 3.7 3.2-4.5 GM/DL Lipase 37 8-78 U/L Serum Alcohol < 10 <10 MG/DL White Blood Count 7.0 4.3-11.0 10^3/uL Red Blood Count 4.15 L 4.35-5.85 10^6/uL Hemoglobin 13.1 11.5-16.0 G/DL Hematocrit 40 35-52 % Mean Corpuscular Volume 95 80-99 FL Mean Corpuscular Hemoglobin 32 25-34 PG Mean Corpuscular Hemoglobin Concent 33 32-36 G/DL Red Cell Distribution Width 15.3 H 10.0-14.5 % Platelet Count 126 L 130-400 10^3/uL Mean Platelet Volume 10.6 H 7.4-10.4 FL Neutrophils (%) (Auto) 51 42-75 % Lymphocytes (%) (Auto) 34 12-44 % Monocytes (%) (Auto) 8 0-12 % Eosinophils (%) (Auto) 6 0-10 % Basophils (%) (Auto) 1 0-10 % Neutrophils # (Auto) 3.5 1.8-7.8 X 10^3 Lymphocytes # (Auto) 2.4 1.0-4.0 X 10^3 Monocytes # (Auto) 0.6 0.0-1.0 X 10^3 Eosinophils # (Auto) 0.4 H 0.0-0.3 10^3/uL Basophils # (Auto) 0.1 0.0-0.1 10^3/uL Urine Color YELLOW Urine Clarity SLIGHTLY CLOUDY Urine pH 7 5-9 Urine Specific [place] 1.010 L 1.016-1.022 Urine Protein NEGATIVE NEGATIVE Urine Glucose (UA) NEGATIVE NEGATIVE Urine Ketones NEGATIVE NEGATIVE Urine Nitrite NEGATIVE NEGATIVE Urine Bilirubin NEGATIVE NEGATIVE Urine Urobilinogen 1 NORMAL MG/DL Urine Leukocyte Esterase NEGATIVE NEGATIVE Urine RBC (Auto) NEGATIVE NEGATIVE Urine RBC NONE /HPF Urine WBC NONE /HPF Urine Squamous Epithelial Cells TNTC H /HPF Urine Crystals NONE /LPF Urine Bacteria NEGATIVE /HPF Urine Casts NONE /LPF Urine Mucus NEGATIVE /LPF Urine Yeast MODERATE H /HPF Urine Culture Indicated NO My Orders Orders - MARTIN HOLLINGSWORTH Cbc With Automated Diff (03/27/17 11:00) Comprehensive Metabolic Panel (03/27/17 11:00) Lipase (03/27/17 11:00) Ua Culture If Indicated (03/27/17 11:00) Saline Lock/Iv-Start (03/27/17 11:00) Alcohol (03/27/17 11:11) Ns Iv 1000 Ml (Sodium Chloride 0.9%) (03/27/17 11:36) Ondansetron Injection (Zofran Injectio (03/27/17 11:45) Morphine Injection (Morphine Injection (03/27/17 11:36) Pantoprazole Injection (Protonix Injecti (03/27/17 11:45) Hydrocodone/Apap 10/325 Tablet (Lortab 1 (03/27/17 13:10) Medications Given in ED Current Medications Medications Dose Ordered Sig/Pino Route Start Time Stop Time Status Last Admin Dose Admin Ondansetron HCl 4 mg ONCE ONCE IVP 03/27/17 11:45 03/27/17 11:46 DC 03/27/17 11:55 4 MG Pantoprazole 80 mg ONCE ONCE IV 03/27/17 11:45 03/27/17 11:46 DC 03/27/17 11:56 80 MG Sodium Chloride 1,000 ml @ 0 mls/hr Q0M ONCE IV 03/27/17 11:36 03/27/17 11:39 DC 03/27/17 12:00 1,000 MLS/HR Vital Signs/I&O Vital Sign - Last 12Hours 03/27/17 10:15 Temp 97.9 Pulse 89 Resp 18 B/P (MAP) 128/84 (99) O2 Delivery Room Air Blood Pressure Mean: 99 Departure Communication (Admissions) Progress Notes Patient seen and evaluated. 20-gauge IV placed in the left AC. Initial labs obtained. Patient given 80 mg of Protonix, 4 mg of Zofran, and 1 L normal saline. Patient requesting to drink her water. I discussed with the patient that she needs to not drink or eat anything until all labs are resulted. Patient verbalizes understanding. 1230 Patient case discussed with Dr. Mccray including history, VS, exam findings, and lab findings. Dr. Mccray recommends dsch to home with f/u as an outpatient with a GI specialist. 1300 all laboratory findings and recommendations by Dr. Mccray discussed with the patient. Patient reports feeling much better after medications given in the emergency department. Denies any vomiting or hematemesis. Patient again requesting to drink her water. Patient does complain of continued epigastric pain that she rates at a 3/10, but states this is similar to her usual epigastric pain. States the tramadol that she uses at home does not relieve the pain and is requesting something stronger. We'll give her 1 dose of hydrocodone 10/325 mg in the emergency department. Patient is to discuss increasing the tramadol with Dr. Ruby as an outpatient. Return precautions were discussed with the patient as described in the discharge instructions of this report. Patient verbalizes understanding and agrees with the treatment plan. Patient ambulated from the emergency department without difficulty. Impression Impression: Primary Impression: Epigastric abdominal pain Additional Impressions: Cirrhosis History of esophageal varices Disposition: HOME, SELF-CARE Condition: Improved Departure-Patient Inst. Decision time for Depature: 12:36 Referrals: CORETTA MCCRAY RICHARD A DO (PCP/Family) Primary Care Physician Patient Instructions: Esophageal Varices (DC) Add. Discharge Instructions: All discharge instructions reviewed with patient and/or family. Voiced understanding. Medications as directed. NO aspirin, motrin, or NSAIDS. Soft diet. Push fluids. Follow-up with Dr. Valdes or Dr. Godoy is an outpatient for recheck and possible need for upper endoscopy. Call for appointment time today. Follow-up with your family practitioner for recheck as outpatient tomorrow. Call today for appointment time. Return to the emergency department immediately for worsened pain, vomiting blood, black stools, rectal bleeding, fever, abdominal swelling, or any other concerns. Gastroenterologists Dr. Ronny Gilmore JACQUELINE [place] Scripts Sucralfate (Carafate) 1 Gm/10 Ml Oral.susp 1 GM PO ACHS, #560 ML 0 Refills Prov: MARTIN HOLLINGSWORTH 03/27/17 Ondansetron (Ondansetron Odt) 8 Mg Tab.rapdis 8 MG PO Q6H Y for NAUSEA/VOMITING-1ST LINE, #10 TAB 0 Refills Prov: MARTIN HOLLINGSWORTH 03/27/17 Pantoprazole Sodium (Pantoprazole Sodium) 40 Mg Tablet. 40 MG PO BID, #30 TAB 0 Refills Prov: MARTIN HOLLINGSWORTH 03/27/17 MARTIN HOLLINGSWORTH Mar 27, 2017 11:09
[2017-03-27] MEDS ORDERED: morphine INJ 10 MG/ML 1ML (SYR OR VIAL) IVP STA (11:36)
[2017-03-27] MEDS ORDERED: NS IV 1000 ML 1,000 ML IV ONE (11:36)
[2017-03-27 11:38] LABS: BASOPHILS # (AUTO) 0.1 10^3/uL (0.0-0.1); BASOPHILS % (AUTO) 1 % (0-10); BILIRUBIN,URINE NEGATIVE (NEGATIVE); EOSINOPHILS # (AUTO) 0.4 10^3/uL (0.0-0.3); EOSINOPHILS % (AUTO) 6 % (0-10); KETONES,URINE NEGATIVE (NEGATIVE); LEUKOCYTE ESTERASE ,URINE NEGATIVE (NEGATIVE); LYMPHOCYTES # (AUTO) 2.4 X 10^3 (1.0-4.0); LYMPHOCYTES % (AUTO) 34 % (12-44); MEAN CORPUSCULAR HEMOGLOBIN 32 PG (25-34); MEAN CORPUSCULAR HGB CONC 33 G/DL (32-36); MEAN CORPUSCULAR VOLUME 95 FL (80-99); MEAN PLATELET VOLUME 10.6 FL (7.4-10.4); MONOCYTES # (AUTO) 0.6 X 10^3 (0.0-1.0); MONOCYTES % (AUTO) 8 % (0-12); NEUTROPHILS # (AUTO) 3.5 X 10^3 (1.8-7.8); NEUTROPHILS % (AUTO) 51 % (42-75); NITRITE,URINE NEGATIVE (NEGATIVE); PH,URINE 7 (5-9); PLATELET COUNT 126 10^3/uL (130-400); PROTEIN,URINE NEGATIVE (NEGATIVE); RED BLOOD COUNT 4.15 10^6/uL (4.35-5.85); RED CELL DISTRIBUTION WIDTH 15.3 % (10.0-14.5); UROBILINOGEN,URINE 1 MG/DL (NORMAL)
[2017-03-27 11:45] LABS: SQUAMOUS EPITHELIAL CELL,UR TNTC /HPF; YEAST,URINE MODERATE /HPF
[2017-03-27] MEDS ORDERED: PANTOPRAZOLE 40 MG/10 ML (PROTONIX) VIAL IV ONE (11:45)
[2017-03-27] MEDS ORDERED: ONDANSETRON 4 MG/2 ML (SDV) Z0FRAN IVP ONE (11:45)
[2017-03-27 11:57] LABS: ALANINE AMINOTRANSFERASE 24 U/L (0-55); ALBUMIN 3.7 GM/DL (3.2-4.5); ALCOHOL < 10 MG/DL (<10); ANION GAP 7 MMOL/L (5-14); ASPARTATE AMINO TRANSFERASE 45 U/L (5-34); BILIRUBIN,TOTAL 0.6 MG/DL (0.1-1.0); BLOOD UREA NITROGEN 10 MG/DL (7-18); BUN/CREATININE RATIO 15; CALCIUM 9.2 MG/DL (8.5-10.1); CARBON DIOXIDE 28 MMOL/L (21-32); CHLORIDE 104 MMOL/L (98-107); CREATININE SERUM 0.66 MG/DL (0.60-1.30); GFR ESTIMATED > 60; GLUCOSE 105 MG/DL (70-105); LIPASE 37 U/L (8-78); POTASSIUM 4.3 MMOL/L (3.6-5.0); SODIUM 139 MMOL/L (135-145); TOTAL PROTEIN 8.5 GM/DL (6.4-8.2)
[2017-03-27] MEDS ORDERED: ONDA8TAB13 PO (12:38)
[2017-03-27] MEDS ORDERED: PANT40TA3 PO (12:38)
[2017-03-27] MEDS ORDERED: SUCR1ORA5 PO (12:38)
[2017-03-27] MEDS ORDERED: HYDROcodone/APAP 10 MG/325 MG (LORTAB) TAB PO STA (13:10)
[2017-03-27 13:22] VITALS: BP 128/71
== END 2017-03-27 13:22 | disposition home or self-care (01) ==
LOC: EDUNIT# 09:52 → ER 09:55
DX: K74.60 Unspecified cirrhosis of liver (principal); F41.9 Anxiety disorder, unspecified; F90.9 Attention-deficit hyperactivity disorder, unspecified type; K21.9 Gastro-esophageal reflux disease without esophagitis; J44.9 Chronic obstructive pulmonary disease, unspecified; F12.90 Cannabis use, unspecified, uncomplicated; F19.90 Other psychoactive substance use, unspecified, uncomplicated; F17.210 Nicotine dependence, cigarettes, uncomplicated; Z87.19 Personal history of other diseases of the digestive system; Z87.442 Personal history of urinary calculi
CPT/HCPCS: 36415; 80053; 80320; 81000; 83690; 85025

== ENCOUNTER 2017-09-20 07:53 | Emergency (ER) | payer MEDICARE, MEDICAID ==
[~2017-09-20] VITALS: Ht 165.1 cm; Wt 58.1 kg
[~2017-09-20 07:53] MED LIST changes: -HYDR-3812 PO; +ONDA8TAB13 PO; +SUCR1ORA5 PO
--- OUTSIDE RECORDS SUMMARY | 2017-09-20 08:03 | XMS REPORT | Clinical Summary ---
Author Author [facility] Organization [facility] Address Unknown Phone Unavailable Care Team Providers Care Ceramic Tile Setter Name Role Phone Jose Feliciano RN Unavailable Francis Hutson MD Unavailable Source Comments Some departments are not documenting in the electronic medical record. If you do not see the information that you expected, contact Release of Information in the Health Information Management department at [phone] for further assistance in locating additional records.[facility] Allergies Not on File Current Medications Not on file Active Problems Not on file Social History Tobacco Use Types Packs/Day Years Used Date Never Assessed Sex Assigned at Date Recorded Not on file Last Filed Vital Signs Not on file Plan of Treatment Health Maintenance Due Date Last Done Comments HEPATITIS C SCREENING 1963 PHYSICAL (COMPREHENSIVE) 1970 EXAM PERTUSSIS VACCINE 1974 HIV SCREENING 1978 TETANUS VACCINE 01/29/1980 CERVICAL CANCER SCREENING 1993 BREAST CANCER SCREENING 2003 COLORECTAL CANCER 2013 SCREENING INFLUENZA VACCINE 01/21/2018 Results Not on filefrom Last 3 Months
--- OUTSIDE RECORDS SUMMARY | 2017-09-20 08:07 | XMS REPORT | Continuity of Care Document ---
Author Author [facility] of [facility] of [facility] Address Unknown Phone Unavailable Allergies Active Description Code Type Severity Reaction Onset Reported/Identified Relationship to Patient Clinical Status Yes codeine Drug Allergy N/A N/A 11/09/2008 Yes codeine [id number] Drug Allergy Unknown N/A 10/07/2016 Medications There is no data. Problems Date Dx Coded Attending Type Code [...] E928.9 ACCIDENT NOS 08/07/2012 Ot 719.41 JOINT PAIN- SHLDER 08/07/2012 Ot 840.9 SPRAIN SHOULDER/ARM NOS 08/07/2012 Ot E000.8 OTHER EXTERNAL CAUSE STATUS 08/07/2012 Ot E849.0 ACCIDENT IN HOME 08/07/2012 Ot E928.9 ACCIDENT NOS 03/10/2013 ANITA WASHINGTON, GOLD Baird Ot 720.2 SACROILIITIS NEC 03/10/2013 GOLD HOWARD MD Ot 724.2 LUMBAGO 03/10/2013 GOLD HOWARD MD Ot 724.8 OTHER BACK SYMPTOMS 08/12/2013 GOLD HOWARD MD Ot 719.46 JOINT PAIN-L/LEG 08/12/2013 GOLD HOWARD MD Ot 882.0 OPEN WOUND OF HAND 08/12/2013 GOLD HOWARD MD Ot E000.8 OTHER EXTERNAL CAUSE STATUS 08/12/2013 GOLD HOWARD MD Ot E880.9 FALL ON STAIR/STEP NEC 08/12/2013 GOLD HOWARD MD Ot V06.1 [id number]-VKLQGTUMJ, COMBINED [ 06/16/2014 MAYCOL GUERRA MD Ot [...] J Ot 722.52 08/17/2014 CHARLIE WASHINGTON, MAYCOL Crandall Ot 722.83 08/17/2014 CHARLIE WASHINGTON, MAYCOL J Ot V72.63 08/17/2014 CHARLIE WASHINGTON, MAYCOL J Ot V74.8 09/11/2014 CHARLIE WASHINGTON, MAYCOL J Ot 722.52 09/11/2014 MAYCOL GUERRA MD Ot 722.83 09/11/2014 CHARLIE WASHINGTON, MAYCOL J Ot V72.63 09/11/2014 CHARLIE WASHINGTON, MAYCOL Crandall Ot V74.8 09/18/2014 Ot 789.01 09/18/2014 Ot 789.01 09/18/2014 Ot 722.52 09/18/2014 KATHY WASHINGTON, LORENZO Crandall Ot 401.9 09/18/2014 KATHY WASHINGTON, LORENZO Crandall Ot 786.05 09/18/2014 KATHY WASHINGTON, LORENZO Crandall Ot 786.50 09/18/2014 KATHY WASHINGTON, LORENZO J Ot 401.9 09/18/2014 KATHY WASHINGTON, LORENZO J Ot 786.50 09/18/2014 MARILEE WASHINGTON, CARLOS Salomon Ot 724.02 09/18/2014 CHARLIE WASHINGTON, MAYCOL Crandall Ot 722.52 09/18/2014 CHARLIE WASHINGTON, MAYCOL Crandall Ot 722.83 09/18/2014 CHARLIE WASHINGTON, MAYCOL Crandall Ot V72.63 09/18/2014 MAYCOL GUERRA MD Ot V72.81 09/18/2014 MAYCOL GUERRA MD Ot V74.8 09/18/2014 MAYCOL GUERRA MD Ot 722.52 09/18/2014 CHARLIE WASHINGTON, MAYCOL J Ot 722.83 09/18/2014 CHARLIE WASHINGTON, MAYCOL Crandall Ot V72.63 09/18/2014 MAYCOL GUERRA MD Ot V74.8 09/23/2014 PENELOPE COLLAZO Ot 070.70 09/23/2014 PENELOPE COLLAZO Ot 305.1 09/23/2014 PENELOPE COLLAZO Ot 401.9 09/23/2014 PENELOPE COLLAZO Ot 496 09/23/2014 JACK COLLAZODITH K Ot 785.1 09/28/2014 WIL PA, PENELOPE Sandy [...] Sandy Ot 305.1 12/01/2014 WIL PA, PENELOPE K Ot 401.9 12/01/2014 SPICER-LUCINDA PA, PENELOPE K Ot 496 12/01/2014 WIL PA, PENELOPE Sandy Ot 785.1 12/20/2014 WIL PA, PENELOPE Sandy Ot 070.70 UNSPECIFIED VIRAL HEPATITIS C WITHOUT HE 12/20/2014 WIL PA, PENELOPE Sandy Ot 305.1 TOBACCO USE DISORDER 12/20/2014 WIL PA, PENELOPE Sandy Ot 401.9 HYPERTENSION NOS 12/20/2014 SPICERPENELOPE BLUM Ot 496 CHR AIRWAY OBSTRUCT NEC 12/20/2014 PENELOPE COLLAZO Ot 785.1 PALPITATIONS 12/22/2014 RINKU MANDEL DO Ot 715.35 12/29/2014 Ot 070.70 12/29/2014 Ot 491.20 12/29/2014 RINKU MANDEL DO Ot 715.35 01/12/2015 Ot 070.70 01/12/2015 Ot 491.20 01/19/2015 IVY HARDY TECHNICIAN ASSISTANT Ot 070.70 UNSPECIFIED VIRAL HEPATITIS C WITHOUT HE 01/19/2015 IVY HARDY TECHNICIAN ASSISTANT Ot 530.81 ESOPHAGEAL REFLUX 01/19/2015 IVY HARDY TECHNICIAN ASSISTANT Ot 573.8 LIVER DISORDERS NEC 01/19/2015 IVY HARDY TECHNICIAN ASSISTANT Ot 780.60 FEVER, UNSPECIFIED 01/19/2015 IVY HARDY TECHNICIAN ASSISTANT Ot 789.09 ABDOMINAL PAIN, OTHER SPECIFIED SITE 01/19/2015 IVY HARDY TECHNICIAN ASSISTANT Ot V58.69 OTH MED,LT,CURRENT USE 01/25/2015 ANITA WASHINGTON, GOLD Baird Ot B19.20 UNSPECIFIED VIRAL HEPATITIS C WITHOUT HE 01/25/2015 ANITA WASHINGTON, GOLD Baird Ot R10.84 GENERALIZED ABDOMINAL PAIN 01/26/2015 Ot 070.70 01/26/2015 Ot 491.20 03/05/2015 TEQUILA MARINO RINKU Nakul Ot K76.9 03/10/2015 TEQUILA MARINO RINKU Nakul Ot K76.9 03/31/2015 TEQUILA MARINO RINKU Nakul Ot K74.60 04/06/2015 GELLENDER RINKU Ot K74.60 04/26/2015 AROLDO MERCADO MD Ot F10.10 ALCOHOL ABUSE, UNCOMPLICATED 04/26/2015 AROLDO MERCADO MD Ot F11.10 OPIOID ABUSE, UNCOMPLICATED 04/26/2015 AROLDO MERCADO MD Ot F12.10 CANNABIS ABUSE, UNCOMPLICATED 04/26/2015 AROLDO MERCADO MD Ot F17.210 NICOTINE DEPENDENCE, CIGARETTES, UNCOMPL 04/26/2015 AROLDO MERCADO MD Ot K74.60 UNSPECIFIED CIRRHOSIS OF LIVER 04/26/2015 AROLDO MERCADO MD Ot K76.9 LIVER DISEASE, UNSPECIFIED 04/26/2015 AROLDO MERCADO MD Ot S39.012A STRAIN OF MUSCLE, FASCIA AND TENDON OF L 04/26/2015 AROLDO MERCADO MD Ot W01.0XXA FALL SAME LEV FROM SLIP/TRIP W/O STRIKE 04/26/2015 AROLDO MERCADO MD Ot Y92.002 BATHRM OF [facility] NON-INSTITUT RESDNCE SNGL 04/26/2015 AROLDO MERCADO [...] 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 08/17/2015 RINKU MANDEL DO Ot J44.9 CHRONIC OBSTRUCTIVE PULMONARY DISEASE, U 08/17/2015 RINKU MANDEL DO Ot J45.909 UNSPECIFIED ASTHMA, UNCOMPLICATED 08/17/2015 RINKU MANDEL DO Ot K21.9 GASTRO-ESOPHAGEAL REFLUX DISEASE WITHOUT 08/17/2015 RINKU MANDEL DO Ot K74.60 UNSPECIFIED CIRRHOSIS OF LIVER 08/17/2015 RINKU MANDEL DO Ot K92.0 HEMATEMESIS 08/17/2015 RINKU MANDEL DO Ot M54.5 LOW BACK PAIN 08/17/2015 RINKU MANDEL DO Ot M79.7 FIBROMYALGIA 08/17/2015 TEQUILA MARINO, RINKU Mota Ot Z91.19 PATIENT'S NONCOMPLIANCE W [facility] MEDICAL TR 08/18/2015 RINKU MANDEL DO Ot B19.20 UNSPECIFIED VIRAL HEPATITIS C WITHOUT HE 08/18/2015 RINKU MANDEL DO Ot F17.210 NICOTINE DEPENDENCE, CIGARETTES, UNCOMPL 08/18/2015 RINKU MANDEL DO Ot F41.9 ANXIETY DISORDER, UNSPECIFIED 08/18/2015 RINKU MANDEL DO Ot F90.9 ATTENTION-DEFICIT HYPERACTIVITY DISORDER 08/18/2015 RINKU MANDEL DO Ot I10 ESSENTIAL (PRIMARY) HYPERTENSION 08/18/2015 RINKU MANDEL DO Ot 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 08/18/2015 RINKU MANDEL DO Ot J44.9 CHRONIC OBSTRUCTIVE PULMONARY DISEASE, U 08/18/2015 RINKU MANDEL DO Ot J45.909 UNSPECIFIED ASTHMA, UNCOMPLICATED 08/18/2015 RINKU MANDEL DO Ot K21.9 GASTRO-ESOPHAGEAL REFLUX DISEASE WITHOUT 08/18/2015 RINKU MANDEL DO Ot K29.71 GASTRITIS, UNSPECIFIED, WITH BLEEDING 08/18/2015 RINKU MANDEL DO Ot K74.60 UNSPECIFIED CIRRHOSIS OF LIVER 08/18/2015 RINKU MANDEL DO Ot M54.5 LOW BACK PAIN 08/18/2015 RINKU MANDEL DO Ot M79.7 FIBROMYALGIA 08/18/2015 RINKU MANDEL DO Ot Z91.19 PATIENT'S NONCOMPLIANCE W [facility] MEDICAL TR 08/25/2015 Ot 789.01 ABDOMINAL PAIN, RIGHT UPPER QUADRANT 08/25/2015 Ot 789.01 ABDOMINAL PAIN, RIGHT UPPER QUADRANT 08/25/2015 Ot 722.52 LUMB/ LUMBOSAC DISC DEGEN 08/25/2015 KATHY WASHINGTON, LORENZO Crandall Ot 401.9 HYPERTENSION NOS 08/25/2015 LORENZO CHAVEZ MD Ot 786.05 SHORTNESS OF BREATH 08/25/2015 LORENZO CHAVEZ MD Ot 786.50 CHEST PAIN NOS 08/25/2015 LORENZO CHAVEZ MD Ot 401.9 HYPERTENSION NOS 08/25/2015 LORENZO CHAVEZ MD Ot 786.50 CHEST PAIN NOS 08/25/2015 MARILEE WASHINGTON, CARLOS Salomon Ot 724.02 SPINAL STENOSIS, LUMBAR REG, W/OUT NEURO 08/25/2015 MAYCOL GUERRA MD Ot 722.52 LUMB/LUMBOSAC DISC DEGEN 08/25/2015 MAYCOL GUERRA MD Ot 722.83 POSTLAMINECT SYND-LUMBAR 08/25/2015 MAYCOL GUERRA MD Ot V72.63 PRE-PROCEDURAL LABORATORY EXAMINATION 08/25/2015 MAYCOL GUERRA MD Ot V72.81 LLCQ-PJE-GYSYRUEFL CARDIOVASCULAR 08/25/2015 MAYCOL GUERRA MD Ot V74.8 [...] C WITHOUT HE 08/26/2015 GOLD HOWARD MD T Ot F10.10 ALCOHOL ABUSE, UNCOMPLICATED 08/26/2015 GOLD [...] MD Ot F10.10 ALCOHOL ABUSE, UNCOMPLICATED 08/26/2015 OGLD HOWARD MD T Ot F12.10 CANNABIS ABUSE, UNCOMPLICATED 08/26/2015 GOLD HOWARD MD T Ot F17.210 NICOTINE DEPENDENCE, CIGARETTES, UNCOMPL 08/26/2015 [...] Ot K74.60 UNSPECIFIED CIRRHOSIS OF LIVER 08/27/2015 MARITN ACUNA Ot R59.0 LOCALIZED ENLARGED LYMPH NODES 08/27/2015 MARTIN ACUNA Ot Z91.19 PATIENT'S NONCOMPLIANCE W [facility] MEDICAL TR 09/16/2015 GOLD HOWARD MD [...] UNSPECIFIED VIRAL HEPATITIS C WITHOUT HE 11/09/2015 IVY HARDY TECHNICIAN ASSISTANT Ot 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 11/09/2015 IVY HARDY TECHNICIAN ASSISTANT Ot K70.30 ALCOHOLIC CIRRHOSIS OF LIVER WITHOUT ASC 11/09/2015 IVY HARDY TECHNICIAN ASSISTANT Ot R10.13 EPIGASTRIC PAIN 11/09/2015 IVY HARDY TECHNICIAN ASSISTANT Ot Z91.19 PATIENT'S NONCOMPLIANCE W [facility] MED[facility] TR 11/10/2015 IVY HARDY TECHNICIAN ASSISTANT Ot B19.20 UNSPECIFIED VIRAL HEPATITIS C WITHOUT HE 11/10/2015 IVY HARDY TECHNICIAN ASSISTANT Ot 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 11/10/2015 IVY HARDY TECHNICIAN ASSISTANT Ot K70.30 ALCOHOLIC CIRRHOSIS OF LIVER WITHOUT ASC 11/10/2015 IVY HARDY TECHNICIAN ASSISTANT Ot R10.13 EPIGASTRIC PAIN 11/10/2015 IVY HARDY TECHNICIAN ASSISTANT Ot Z91.19 PATIENT'S NONCOMPLIANCE W [facility] MED[facility] TR 11/10/2015 IVY HARDY TECHNICIAN ASSISTANT Ot B19.20 UNSPECIFIED VIRAL HEPATITIS C WITHOUT HE 11/10/2015 IVY HARDY TECHNICIAN ASSISTANT Ot 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 11/10/2015 IVY HARDY TECHNICIAN ASSISTANT Ot K70.30 ALCOHOLIC CIRRHOSIS OF LIVER WITHOUT ASC 11/10/2015 IVY HARDY TECHNICIAN ASSISTANT Ot R10.13 EPIGASTRIC PAIN 11/10/2015 IVY HARDY TECHNICIAN ASSISTANT Ot Z91.19 PATIENT'S NONCOMPLIANCE W [facility] MED[facility] TR 11/22/2015 GOYO PARK DO Ot K92.0 HEMATEMESIS 11/22/2015 GOYO PARK DO Ot Z53.21 PROC/TRTMT NOT CRD OUT D/T PT LV BEF SEE 11/24/2015 Ot 789.01 ABDOMINAL PAIN, RIGHT UPPER QUADRANT 11/24/2015 Ot 789.01 ABDOMINAL PAIN, RIGHT UPPER QUADRANT 11/24/2015 Ot 722.52 LUMB/ LUMBOSAC DISC DEGEN 11/24/2015 LORENZO CHAVEZ MD Ot [...] EXAMINATION 11/24/2015 MAYCOL GUERRA MD Ot V72.81 [id number]-[id number] CARDIOVASCULAR 11/24/2015 MAYCOL GUERRA MD Ot V74.8 [...] INJURY OF NECK, INITIAL ENCO 11/25/2015 TEQUILA MARINO, RINKU Mota Ot W19.XXXA UNSPECIFIED FALL, INITIAL ENCOUNTER 11/25/2015 TEQUIAL MARINO, RINKU Mota Ot Y99.8 OTHER EXTERNAL CAUSE STATUS 12/03/2015 TEQUILA MARINO, RINKU Mota Ot S19.9XXA UNSPECIFIED INJURY OF NECK, INITIAL ENCO 12/03/2015 TEQUILA DO, RINKU Mota Ot W19.XXXA UNSPECIFIED FALL, INITIAL ENCOUNTER 12/03/2015 TEQUILA MARINO, RINKU Mota Ot Y99.8 OTHER EXTERNAL CAUSE STATUS 12/17/2015 TEQUILA DO, RINKU Mota Ot S19.9XXA UNSPECIFIED INJURY OF NECK, INITIAL ENCO 12/17/2015 TEQUILA MARINO, RINKU Mota Ot W19.XXXA UNSPECIFIED FALL, INITIAL [...] 01/18/2016 AROLDO MERCADO MD Ot Z79.899 OTHER GROUND SYSTEMS ENGINEER (CURRENT) DRUG THERAPY 01/19/2016 AROLDO MERCADO MD [...] 01/19/2016 AROLDO MERCADO MD Ot Z79.899 OTHER GROUP HOME (CURRENT) DRUG THERAPY 01/25/2016 AROLDO MERCADO MD [...] 01/25/2016 AROLDO MERCADO MD Ot Z79.899 OTHER GROUP HOME (CURRENT) DRUG THERAPY 01/25/2016 Ot 789.01 ABDOMINAL PAIN, RIGHT UPPER QUADRANT 01/25/2016 Ot 789.01 ABDOMINAL PAIN, RIGHT UPPER QUADRANT 01/25/2016 Ot 722.52 LUMB/ LUMBOSAC DISC DEGEN 01/25/2016 LORENZO CHAVEZ MD Ot [...] EXAMINATION 01/25/2016 MAYCOL GUERRA MD, Ot V72.81 MDDQ-[id number]-MZAVVBJIT CARDIOVASCULAR 01/25/2016 MAYCOL GUERRA MD, Ot V74.8 SCREEN-BACTERIAL DIS NEC 01/25/2016 MAYCOL GUERRA MD Ot 722.52 LUMB/LUMBOSAC DISC DEGEN 01/25/2016 MAYCOL GUERRA MD Ot 722.83 POSTLAMINECT SYND-LUMBAR 01/25/2016 MAYCOL GUERRA MD Ot V72.63 PRE-PROCEDURAL LABORATORY EXAMINATION 01/25/2016 MAYCOL GUERRA MD Ot V74.8 SCREEN-BACTERIAL DIS NEC 01/25/2016 RINKU [...] ON DX IMAGING OF ABD REGION 01/25/2016 GELLENDER DO, RINKU A Ot K76.9 LIVER DISEASE, UNSPECIFIED 01/25/2016 RINKU [...] NICOTINE DEPENDENCE, CIGARETTES, UNCOMPL 02/26/2016 PJ TREJO CORE COMPOSER FEEDER Ot I10 ESSENTIAL (PRIMARY) HYPERTENSION 02/26/2016 PJ TREJOP Ot M25.512 PAIN IN LEFT SHOULDER 02/26/2016 PJ TREJOP Ot M79.1 MYALGIA 02/26/2016 PJ TREJOP Ot R06.00 DYSPNEA, UNSPECIFIED 02/26/2016 PJ TREJOP Ot R07.89 OTHER CHEST PAIN 02/26/2016 PJ TREJOP Ot Z79.899 OTHER GROUND SYSTEMS ENGINEER (CURRENT) DRUG THERAPY 02/28/2016 PJ TREJO CORE COMPOSER FEEDER Ot F17.210 NICOTINE DEPENDENCE, CIGARETTES, UNCOMPL 02/28/2016 MAYA PJ CORE COMPOSER FEEDER Ot I10 ESSENTIAL (PRIMARY) HYPERTENSION 02/28/2016 MAYAPJ CORE COMPOSER FEEDER Ot M25.512 PAIN IN LEFT SHOULDER 02/28/2016 MAYAPJ Middleton CORE COMPOSER FEEDER Ot M79.1 MYALGIA 02/28/2016 MAYAPJ [place]leton CORE COMPOSER FEEDER Ot R06.00 DYSPNEA, UNSPECIFIED 02/28/2016 MAYA, PJ CORE COMPOSER FEEDER Ot R07.89 OTHER CHEST PAIN 02/28/2016 MAYA, PJ CORE COMPOSER FEEDER Ot Z79.899 OTHER GROUND SYSTEMS ENGINEER (CURRENT) DRUG THERAPY 02/29/2016 RINKU MANDEL DO Ot K74.60 UNSPECIFIED CIRRHOSIS OF LIVER 02/29/2016 RINKU MANDEL DO Ot R91.8 OTHER NONSPECIFIC ABNORMAL FINDING OF CORI 03/13/2016 RINKU MANDEL DO Ot K74.60 UNSPECIFIED CIRRHOSIS OF LIVER 03/13/2016 RINKU MANDEL DO Ot R91.8 OTHER NONSPECIFIC ABNORMAL FINDING OF CORI 05/08/2016 MAYA, PJ CORE COMPOSER FEEDER Ot B19.20 UNSPECIFIED VIRAL HEPATITIS C WITHOUT HE 05/08/2016 MAYA, PJ CORE COMPOSER FEEDER Ot F17.210 NICOTINE DEPENDENCE, CIGARETTES, UNCOMPL 05/08/2016 MAYA, PJ CORE COMPOSER FEEDER Ot I10 ESSENTIAL (PRIMARY) HYPERTENSION 05/08/2016 MAYA, PJ CORE COMPOSER FEEDER Ot J44.9 CHRONIC OBSTRUCTIVE PULMONARY DISEASE, U 05/08/2016 MAYAPJ Middleton CORE COMPOSER FEEDER Ot R10.13 EPIGASTRIC PAIN 05/08/2016 MAYAPJ Middleton CORE COMPOSER FEEDER Ot R11.2 NAUSEA WITH VOMITING, UNSPECIFIED 05/08/2016 MAYA, PJ CORE COMPOSER FEEDER Ot S39.012A STRAIN OF MUSCLE, FASCIA AND TENDON OF L 05/08/2016 PJ TREJO CORE COMPOSER FEEDER Ot X50.9XXA OTHER AND UNSPECIFIED OVREXRTN OR STRNOU 05/08/2016 MAYA PJ CORE COMPOSER FEEDER Ot Y92.[address] IN [facility] 05/08/2016 MAYAPJ Middleton CORE COMPOSER FEEDER Ot Y99.8 OTHER EXTERNAL CAUSE STATUS 05/08/2016 MAYAPJ Middleton CORE COMPOSER FEEDER Ot Z79.899 OTHER GROUND SYSTEMS ENGINEER (CURRENT) DRUG THERAPY 05/10/2016 PJ TREJOP Ot B19.20 UNSPECIFIED VIRAL HEPATITIS C WITHOUT HE 05/10/2016 PJ TREJOP Ot F17.210 NICOTINE DEPENDENCE, CIGARETTES, UNCOMPL 05/10/2016 PJ TREJOP Ot I10 ESSENTIAL (PRIMARY) HYPERTENSION 05/10/2016 PJ TREJOP Ot J44.9 CHRONIC OBSTRUCTIVE PULMONARY DISEASE, U 05/10/2016 PJ TREJOP Ot R10.13 EPIGASTRIC PAIN 05/10/2016 PJ TREJOP Ot R11.2 NAUSEA WITH VOMITING, UNSPECIFIED 05/10/2016 PJ TREJOP Ot S39.012A STRAIN OF MUSCLE, FASCIA AND TENDON OF L 05/10/2016 PJ TREJOP Ot X50.9XXA OTHER AND UNSPECIFIED OVREXRTN OR STRNOU 05/10/2016 PJ TRJEOP Ot Y92.[address] [facility] [address] IN [facility] 05/10/2016 PJ TREJOP Ot Y99.8 OTHER EXTERNAL CAUSE STATUS 05/10/2016 PJ TREJOP Ot Z79.899 OTHER GROUP HOME (CURRENT) DRUG THERAPY 09/01/2016 AROLDO MERCADO MD Ot F17.210 NICOTINE DEPENDENCE, CIGARETTES, UNCOMPL 09/01/2016 AROLDO MERCADO MD, Ot I10 ESSENTIAL (PRIMARY) HYPERTENSION 09/01/2016 AROLDO MERCADO MD Ot J44.9 CHRONIC OBSTRUCTIVE PULMONARY DISEASE, U 09/01/2016 AROLDO MERCADO MD Ot K74.60 UNSPECIFIED CIRRHOSIS OF LIVER 09/01/2016 AROLDO MERCADO MD Ot R04.2 HEMOPTYSIS 09/01/2016 AROLDO MERCADO MD, Ot S39.012A STRAIN OF MUSCLE, FASCIA AND TENDON OF L 09/01/2016 AROLDO MERCADO MD Ot X58.XXXA EXPOSURE TO OTHER SPECIFIED FACTORS, INI 09/01/2016 AROLDO MERCADO MD Ot Y99.8 OTHER EXTERNAL CAUSE STATUS 09/01/2016 AROLDO MERCADO MD, Ot Z79.899 OTHER GROUP HOME (CURRENT) DRUG THERAPY 09/06/2016 DAGOBERTO WOMACK DO Ot B19.20 UNSPECIFIED VIRAL HEPATITIS C WITHOUT HE 09/06/2016 VU DOLAURAA K Ot F17.210 NICOTINE DEPENDENCE, CIGARETTES, UNCOMPL 09/06/2016 VU LAURA MARINOA K Ot G89.29 OTHER CHRONIC PAIN 09/06/2016 VU DO DAGOBERTO K Ot I10 ESSENTIAL (PRIMARY) HYPERTENSION 09/06/2016 VU DOLAURAA K Ot J44.9 CHRONIC OBSTRUCTIVE PULMONARY DISEASE, U 09/06/2016 VU DO DAGOBERTO K Ot K29.21 ALCOHOLIC GASTRITIS WITH BLEEDING 09/06/2016 VU DO, DAGOBERTO K Ot K70.30 ALCOHOLIC CIRRHOSIS OF LIVER WITHOUT ASC 09/06/2016 VU DO DAGOBERTO K Ot K76.6 PORTAL HYPERTENSION 09/06/2016 VU DO DAGOBERTO K Ot M54.5 LOW BACK PAIN 09/06/2016 VU DO DAGOBERTO K Ot R04.2 HEMOPTYSIS 09/06/2016 VU DO DAGOBERTO K Ot Z79.899 OTHER GROUP HOME (CURRENT) DRUG THERAPY 09/06/2016 VU DO DAGOBERTO K Ot Z91.19 PATIENT'S NONCOMPLIANCE W [facility] MED[facility] TR 09/12/2016 VU LAURA MARINOA K Ot B19.20 UNSPECIFIED VIRAL HEPATITIS C WITHOUT HE 09/12/2016 VU DAGOBERTO MARINO K Ot F17.210 NICOTINE DEPENDENCE, CIGARETTES, UNCOMPL 09/12/2016 VU LAURA MARINOA K Ot G89.29 OTHER CHRONIC PAIN 09/12/2016 VU DO, DAGOBERTO K Ot I10 ESSENTIAL (PRIMARY) HYPERTENSION 09/12/2016 VU DAGOBERTO K Ot J44.9 CHRONIC OBSTRUCTIVE PULMONARY DISEASE, U 09/12/2016 VU DO DAGOBERTO K Ot K29.21 ALCOHOLIC GASTRITIS WITH BLEEDING 09/12/2016 VU DO DAGOBERTO K Ot K70.30 ALCOHOLIC CIRRHOSIS OF LIVER WITHOUT ASC 09/12/2016 VU DO DAGOBERTO K Ot K76.6 PORTAL HYPERTENSION 09/12/2016 VU DO DAGOBERTO K Ot M54.5 LOW BACK PAIN 09/12/2016 VU DO DAGOBERTO K Ot R04.2 HEMOPTYSIS 09/12/2016 VU DO DAGOBERTO K Ot Z79.899 OTHER GROUND SYSTEMS ENGINEER (CURRENT) DRUG THERAPY 09/12/2016 DAGOBERTO WOMACK DO Ot Z91.19 PATIENT'S NONCOMPLIANCE W [facility] MEDICAL TR 09/21/2016 AROLDO MERCADO MD Ot F17.210 NICOTINE DEPENDENCE, CIGARETTES, UNCOMPL 09/21/2016 AROLDO MERCADO MD, Ot I10 ESSENTIAL (PRIMARY) HYPERTENSION 09/21/2016 AROLDO MERCADO MD, Ot J44.9 CHRONIC OBSTRUCTIVE PULMONARY DISEASE, U 09/21/2016 AROLDO MERCADO MD, Ot K74.60 UNSPECIFIED CIRRHOSIS OF LIVER 09/21/2016 AROLDO MERCADO MD, Ot R04.2 HEMOPTYSIS 09/21/2016 AROLDO MERCADO MD, Ot S39.012A STRAIN OF MUSCLE, FASCIA AND TENDON OF L 09/21/2016 AROLDO MERCADO MD, Ot X58.XXXA EXPOSURE TO OTHER SPECIFIED FACTORS, INI 09/21/2016 AROLDO MERCADO MD, Ot Y99.8 OTHER EXTERNAL CAUSE STATUS 09/21/2016 AROLDO MERCADO MD, Ot Z79.899 OTHER GROUP HOME (CURRENT) DRUG THERAPY 09/26/2016 TEQUILA DORINKU Ot Z12.31 ENCNTR SCREEN MAMMOGRAM FOR MALIGNANT NE 09/28/2016 RUBENDER DORINKU Ot Z12.31 ENCNTR SCREEN MAMMOGRAM FOR MALIGNANT NE 10/02/2016 RINKU MANDEL DO Ot N95.0 POSTMENOPAUSAL BLEEDING 10/03/2016 RUBENDER DO, RINKU Mota Ot Z12.31 ENCNTR SCREEN MAMMOGRAM FOR MALIGNANT NE 10/04/2016 SHEREENLENDER DORINKU Ot Z12.31 ENCNTR SCREEN MAMMOGRAM FOR MALIGNANT NE 10/04/2016 SHEREENLENDER DORINKU Ot Z12.31 ENCNTR SCREEN MAMMOGRAM FOR MALIGNANT NE 10/07/2016 PENELOPE COLLAZO Ot 070.70 UNSPECIFIED VIRAL HEPATITIS C WITHOUT HE 10/07/2016 PENELOPE COLLAZO Ot 305.1 TOBACCO USE DISORDER 10/07/2016 PENELOPE COLLAZO Ot 401.9 HYPERTENSION NOS 10/07/2016 PENELOPE COLLAZO Ot 496 CHR AIRWAY OBSTRUCT NEC 10/07/2016 PENELOPE COLLAZO Ot 785.1 PALPITATIONS 10/09/2016 GELLENDER DO, RINKU Mota Ot B19.20 UNSPECIFIED VIRAL HEPATITIS C WITHOUT HE 10/09/2016 GELLENDER DO, RINKU Mota Ot F12.10 CANNABIS ABUSE, UNCOMPLICATED 10/09/2016 SHEREENLENDER DO, RINKU Mota Ot F17.210 NICOTINE DEPENDENCE, CIGARETTES, UNCOMPL 10/09/2016 SHEREENLENDER DO, RINKU Mota Ot I10 ESSENTIAL (PRIMARY) HYPERTENSION 10/09/2016 SHEREENLENDER DO, RINKU Mota Ot J44.9 CHRONIC OBSTRUCTIVE PULMONARY DISEASE, U 10/09/2016 GELLENDER DO, RINKU Mota Ot K21.9 GASTRO-ESOPHAGEAL REFLUX DISEASE WITHOUT 10/09/2016 GELLENDER DO, RINKU Mota Ot K59.00 CONSTIPATION, UNSPECIFIED 10/09/2016 GELLENDER DO, RINKU Mota Ot K74.60 UNSPECIFIED CIRRHOSIS OF LIVER 10/09/2016 GELLENDER DO, RINKU Mota Ot K82.8 OTHER SPECIFIED DISEASES OF GALLBLADDER 10/09/2016 GELLENDER DO, RINKU Mota Ot R10.12 LEFT UPPER QUADRANT PAIN 10/09/2016 GELLENDER DO, RINKU Mota Ot Z91.19 PATIENT'S NONCOMPLIANCE W OTH MEDICAL TR 10/25/2016 GELLENDER DO, RINKU Mota Ot N64.89 OTHER SPECIFIED DISORDERS OF BREAST 10/25/2016 GELLENDER DO, RINKU Mota Ot R92.8 OTH ABN AND INCONCLUSIVE FINDINGS ON DX 10/26/2016 GELLENDER DO, RINKU Mota Ot Z12.31 ENCNTR SCREEN MAMMOGRAM FOR MALIGNANT NE 10/26/2016 GELLENDER DO, RINKU Mota Ot N95.0 POSTMENOPAUSAL BLEEDING 10/31/2016 GELLENDER DO, RINKU Mota Ot Z12.31 ENCNTR SCREEN MAMMOGRAM FOR MALIGNANT NE 11/06/2016 GELLENDER DO, RINKU Mota Ot N95.0 POSTMENOPAUSAL BLEEDING 11/10/2016 GELLENDER DO, RINKU Mota Ot N64.89 OTHER SPECIFIED DISORDERS OF BREAST 11/10/2016 GELLENDER DO, RINKU Mota Ot R92.8 OTH ABN AND INCONCLUSIVE FINDINGS ON DX 11/22/2016 GELLENDER DO, RINKU Mota Ot N64.89 OTHER SPECIFIED DISORDERS OF BREAST 11/22/2016 GELLENDER DO, RINKU Mota Ot R92.8 OTH ABN AND INCONCLUSIVE FINDINGS ON DX 12/06/2016 GELLENDER DO, RINKU Mota Ot B18.2 CHRONIC VIRAL HEPATITIS C 12/06/2016 SHEREENLENDER DO, RINKU Mota Ot F10.20 ALCOHOL DEPENDENCE, UNCOMPLICATED 12/06/2016 GELLENDER DO, RINKU Mota Ot F17.210 NICOTINE DEPENDENCE, CIGARETTES, UNCOMPL 12/06/2016 SHEREENLENDER DO, RINKU Mota Ot I10 ESSENTIAL (PRIMARY) HYPERTENSION 12/06/2016 GELLENDER DO, RINKU Mota Ot J44.9 CHRONIC OBSTRUCTIVE PULMONARY DISEASE, U 12/06/2016 GELLENDER DO, RINKU Mota Ot K76.89 OTHER SPECIFIED DISEASES OF LIVER 12/06/2016 SHEREENLENDER DO, RINKU Mota Ot R11.2 NAUSEA WITH VOMITING, UNSPECIFIED 12/06/2016 GELLENDER DO, RINKU Mota Ot R19.7 DIARRHEA, UNSPECIFIED 12/06/2016 GELLENDER DO, RINKU Mota Ot S39.012A STRAIN OF MUSCLE, FASCIA AND TENDON OF L 12/06/2016 SHEREENLENABIOLA DORINKU Ot X50.9XXA OTHER AND UNSPECIFIED OVREXRTN OR STRNOU 12/06/2016 TEQUILA MARINORINKU Ot Y92.[address] [facility] [address] IN [facility] NON-[facility] (PRIVATE 12/06/2016 TEQUILA MARINO, RINKU Mota Ot Y99.8 OTHER EXTERNAL CAUSE STATUS 12/06/2016 TEQUILA MARINORINKU Ot Z79.899 OTHER GROUP HOME (CURRENT) DRUG THERAPY 12/06/2016 TEQUILA MARINORINKU Ot Z91.19 PATIENT'S NONCOMPLIANCE W [facility] MEDICAL TR 12/06/2016 TEQUILA DO, RINKU Mota Ot B18.2 CHRONIC VIRAL HEPATITIS C 12/06/2016 TEQUILA DO, RINKU Mota Ot F10.20 ALCOHOL DEPENDENCE, UNCOMPLICATED 12/06/2016 GELLENDER DO, RINKU Mota Ot F17.210 NICOTINE DEPENDENCE, CIGARETTES, UNCOMPL 12/06/2016 SHEREENLENDER DO, RINKU Mota Ot I10 ESSENTIAL (PRIMARY) HYPERTENSION 12/06/2016 SHEREENLENDER DO, RINKU Mota Ot J44.9 CHRONIC OBSTRUCTIVE PULMONARY DISEASE, U 12/06/2016 SHEREENLENDER DO, RINKU Mota Ot K76.89 OTHER SPECIFIED DISEASES OF LIVER 12/06/2016 SHEREENLENDER DO, RINKU Mota Ot R11.2 NAUSEA WITH VOMITING, UNSPECIFIED 12/06/2016 GELLENDER DORINKU Ot R19.7 DIARRHEA, UNSPECIFIED 12/06/2016 RINKU MANDEL DO Ot S39.012A STRAIN OF MUSCLE, FASCIA AND TENDON OF L 12/06/2016 RINKU MANDEL DO Ot X50.9XXA OTHER AND UNSPECIFIED OVREXRTN OR STRNOU 12/06/2016 RINKU MANDEL DO Ot Y92.[address] [facility] [address] IN [facility] NON[facility] (PRIVATE 12/06/2016 RINKU MANDEL DO Ot Y99.8 OTHER EXTERNAL CAUSE STATUS 12/06/2016 RINKU MANDEL DO Ot Z79.899 OTHER GROUP HOME (CURRENT) DRUG THERAPY 12/06/2016 RINKU MANDEL DO Ot Z91.19 PATIENT'S NONCOMPLIANCE W [facility] MEDICAL TR 01/10/2017 IVY HARDY APRN Ot B19.20 UNSPECIFIED VIRAL HEPATITIS C WITHOUT HE 01/10/2017 IVY HARDY APRN Ot F41.9 ANXIETY DISORDER, UNSPECIFIED 01/10/2017 IVY HARDY APRN Ot F90.9 ATTENTION-DEFICIT HYPERACTIVITY DISORDER 01/10/2017 IYV HARDY APRN Ot I10 ESSENTIAL (PRIMARY) HYPERTENSION 01/10/2017 IVY HARDY APRN Ot J44.9 CHRONIC OBSTRUCTIVE PULMONARY DISEASE, U 01/10/2017 IVY HARDY APRN Ot K21.9 GASTRO-ESOPHAGEAL REFLUX DISEASE WITHOUT 01/10/2017 IVY HARDY APRN Ot K74.60 UNSPECIFIED CIRRHOSIS OF LIVER 01/10/2017 IVY HARDY APRN Ot R10.13 EPIGASTRIC PAIN 01/10/2017 IVY HARDY APRN Ot Z87.442 PERSONAL HISTORY OF URINARY CALCULI 01/10/2017 IVY HARDY APRN Ot Z90.89 ACQUIRED ABSENCE OF OTHER ORGANS 01/10/2017 IVY HARDY APRN Ot Z91.19 PATIENT'S NONCOMPLIANCE W [facility] MEDICAL TR 01/11/2017 IVY HARDY APRN Ot B19.20 UNSPECIFIED VIRAL HEPATITIS C WITHOUT HE 01/11/2017 IVY HARDY APRN Ot F41.9 ANXIETY DISORDER, UNSPECIFIED 01/11/2017 IVY HARDY APRN Ot F90.9 ATTENTION-DEFICIT HYPERACTIVITY DISORDER 01/11/2017 IVY HARDY APRN Ot I10 ESSENTIAL (PRIMARY) HYPERTENSION 01/11/2017 HARDY, PETER J TECHNICIAN ASSISTANT Ot J44.9 CHRONIC OBSTRUCTIVE PULMONARY DISEASE, U 01/11/2017 IVY HARDY TECHNICIAN ASSISTANT Ot K21.9 GASTRO-ESOPHAGEAL REFLUX DISEASE WITHOUT 01/11/2017 IVY HARDY TECHNICIAN ASSISTANT Ot K74.60 UNSPECIFIED CIRRHOSIS OF LIVER 01/11/2017 IVY HARDY TECHNICIAN ASSISTANT Ot R10.13 EPIGASTRIC PAIN 01/11/2017 IVY HARDY TECHNICIAN ASSISTANT Ot Z87.442 PERSONAL HISTORY OF URINARY CALCULI 01/11/2017 IVY HARDY TECHNICIAN ASSISTANT Ot Z90.89 ACQUIRED ABSENCE OF OTHER ORGANS 01/11/2017 IVY HARDY TECHNICIAN ASSISTANT Ot Z91.19 PATIENT'S NONCOMPLIANCE W [facility] 03/27/2017 MARTIN ACUNA Ot F12.90 CANNABIS USE, UNSPECIFIED, UNCOMPLICATED 03/27/2017 MARTIN ACUNA Ot F17.210 NICOTINE DEPENDENCE, CIGARETTES, UNCOMPL 03/27/2017 MARTIN ACUNA Ot F19.90 OTHER PSYCHOACTIVE SUBSTANCE USE, UNSPEC 03/27/2017 MARTIN ACUNA Ot F41.9 ANXIETY DISORDER, UNSPECIFIED 03/27/2017 MARTIN ACUNA Ot F90.9 ATTENTION-DEFICIT HYPERACTIVITY DISORDER 03/27/2017 MARTIN ACUNA Ot J44.9 CHRONIC OBSTRUCTIVE PULMONARY DISEASE, U 03/27/2017 MARTIN ACUNA Ot K21.9 GASTRO-ESOPHAGEAL REFLUX DISEASE WITHOUT 03/27/2017 MARTIN ACUNA Ot K74.60 UNSPECIFIED CIRRHOSIS OF LIVER 03/27/2017 MARTIN ACUNA Ot R10.13 EPIGASTRIC PAIN 03/27/2017 MARTIN ACUNA Ot Z87.19 PERSONAL HISTORY OF OTHER DISEASES OF TH 03/27/2017 MARTIN ACUNA Ot Z87.442 PERSONAL HISTORY OF URINARY CALCULI 04/02/2017 MARTIN ACUNA Ot F12.90 CANNABIS USE, UNSPECIFIED, UNCOMPLICATED 04/02/2017 MARTIN ACUNA Ot F17.210 NICOTINE DEPENDENCE, CIGARETTES, UNCOMPL 04/02/2017 MARTIN ACUNA Ot F19.90 OTHER PSYCHOACTIVE SUBSTANCE USE, UNSPEC 04/02/2017 MARTIN ACUNA Ot F41.9 ANXIETY DISORDER, UNSPECIFIED 04/02/2017 MARTIN ACUNA Ot F90.9 ATTENTION-DEFICIT HYPERACTIVITY DISORDER 04/02/2017 MARTIN ACUNA Ot J44.9 CHRONIC OBSTRUCTIVE PULMONARY DISEASE, U 04/02/2017 MARTIN ACUNA Ot K21.9 GASTRO-ESOPHAGEAL REFLUX DISEASE WITHOUT 04/02/2017 MARTIN ACUNA Ot K74.60 UNSPECIFIED CIRRHOSIS OF LIVER 04/02/2017 MARTIN ACUNA Ot R10.13 EPIGASTRIC PAIN 04/02/2017 MARTIN ACUNA Ot Z87.19 PERSONAL HISTORY OF OTHER DISEASES OF TH 04/02/2017 MARTIN ACUNA Ot Z87.442 PERSONAL HISTORY OF URINARY CALCULI Procedures Code Description [place] [address] A1C 08/20/2008 37343 T4 FREE 10/05/2008 27343 T3 TOTAL 10/05/2008 [id number] 08/17/2015 Results Test Result Range Complete blood count (CBC) with automated white blood cell (WBC) differential - 01/18/16 13:52 Blood leukocytes automated count (number/volume) 7.5 10*3/uL 4.3-11.0 Blood erythrocytes automated count (number/volume) 4.19 10*6/uL 4.35-5.85 Venous blood hemoglobin measurement (mass/volume) 14.0 [...] Automated blood platelet mean volume measurement 10.2 [foz_us] 7.4-10.4 Automated blood neutrophils/100 leukocytes 55 % [...] Serum or plasma sodium measurement (moles/volume) 131 mmol/L 135-145 Serum or plasma potassium measurement (moles/volume) 3.7 mmol/L 3.6-5.0 Serum or plasma chloride measurement (moles/volume) 97 mmol/L 98-107 Carbon dioxide 21 mmol/L 21-32 Serum or plasma anion gap determination (moles/volume) 13 mmol/L 5-14 Serum or plasma urea nitrogen measurement (mass/volume) 5 mg/dL 7-18 Serum or plasma creatinine measurement (mass/volume) 0.69 mg/dL 0.60-1.30 Serum or plasma urea nitrogen/creatinine mass [...] or plasma troponin i.cardiac measurement (mass/volume) < ng/ mL <0.30 Urine drug screening test - 01/18/16 [...] Urine pH measurement by test strip 7 5-9 Specific gravity of urine by test strip 1.005 1.016- 1.022 Urine protein assay by test strip, semi-quantitative [...] Urine pH measurement by test strip 6 5-9 Specific gravity of urine by test strip 1.015 1.016- 1.022 Urine protein assay by test strip, semi-quantitative [...] 16:30 Blood leukocytes automated count (number/volume) 7.5 10*3/uL 4.3-11.0 Blood erythrocytes automated count (number/volume) 4.20 10*6/uL 4.35-5.85 Venous blood hemoglobin measurement (mass/volume) 14.1 [...] Automated blood platelet mean volume measurement 11.0 [foz_us] 7.4-10.4 Automated blood neutrophils/100 leukocytes 57 % [...] Serum or plasma sodium measurement (moles/volume) 135 mmol/L 135-145 Serum or plasma potassium measurement (moles/volume) 4.0 mmol/L 3.6-5.0 Serum or plasma chloride measurement (moles/volume) 101 mmol/L 98-107 Carbon dioxide 20 mmol/L 21-32 Serum or plasma anion gap determination (moles/volume) 14 mmol/L 5-14 Serum or plasma urea nitrogen measurement (mass/volume) 4 mg/dL 7-18 Serum or plasma creatinine measurement (mass/volume) 0.62 mg/dL 0.60-1.30 Serum or plasma urea nitrogen/creatinine mass [...] Urine pH measurement by test strip 7 5-9 Specific gravity of urine by test strip 1.005 1.016- 1.022 Urine protein assay by test strip, semi-quantitative [...] Urine pH measurement by test strip 7 5-9 Specific gravity of urine by test strip 1.010 1.016- 1.022 Urine protein assay by test strip, semi-quantitative [...] 11:50 Blood leukocytes automated count (number/volume) 5.6 10*3/uL 4.3-11.0 Blood erythrocytes automated count (number/volume) 4.41 10*6/uL 4.35-5.85 Venous blood hemoglobin measurement (mass/volume) 14.5 [...] Automated blood platelet mean volume measurement 11.0 [foz_us] 7.4-10.4 Automated blood neutrophils/100 leukocytes 55 % [...] Serum or plasma sodium measurement (moles/volume) 136 mmol/L 135-145 Serum or plasma potassium measurement (moles/volume) 4.1 mmol/L 3.6-5.0 Serum or plasma chloride measurement (moles/volume) 101 mmol/L 98-107 Carbon dioxide 24 mmol/L 21-32 Serum or plasma anion gap determination (moles/volume) 11 mmol/L 5-14 Serum or plasma urea nitrogen measurement (mass/volume) 8 mg/dL 7-18 Serum or plasma creatinine measurement (mass/volume) 0.64 mg/dL 0.60-1.30 Serum or plasma urea nitrogen/creatinine mass [...] or plasma amylase measurement (enzymatic activity/volume) 81 U /L 25-125 Lipase - 05/08/16 11:50 Lipase 26 U/L 8-78 Serum or plasma ethanol measurement (mass/volume) - 05/08/16 11:50 Serum or plasma ethanol measurement (mass/volume) < mg/dL <10 Complete blood count (CBC) with automated white blood cell (WBC) differential - 09/01/16 21:55 Blood leukocytes automated count (number/volume) 8.9 10*3/uL 4.3-11.0 Blood erythrocytes automated count (number/volume) 4.39 10*6/uL 4.35-5.85 Venous blood hemoglobin measurement (mass/volume) 14.6 [...] Automated blood platelet mean volume measurement 11.1 [foz_us] 7.4-10.4 Automated blood neutrophils/100 leukocytes 63 % [...] Serum or plasma sodium measurement (moles/volume) 136 mmol/L 135-145 Serum or plasma potassium measurement (moles/volume) 3.4 mmol/L 3.6-5.0 Serum or plasma chloride measurement (moles/volume) 99 mmol/L 98-107 Carbon dioxide 24 mmol/L 21-32 Serum or plasma anion gap determination (moles/volume) 13 mmol/L 5-14 Serum or plasma urea nitrogen measurement (mass/volume) 7 mg/dL 7-18 Serum or plasma creatinine measurement (mass/volume) 0.64 mg/dL 0.60-1.30 Serum or plasma urea nitrogen/creatinine mass [...] 07:50 Blood leukocytes automated count (number/volume) 5.5 10*3/uL 4.3-11.0 Blood erythrocytes automated count (number/volume) 3.89 10*6/uL 4.35-5.85 Venous blood hemoglobin measurement (mass/volume) 13.0 [...] Automated blood platelet mean volume measurement 11.1 [foz_us] 7.4-10.4 Automated blood neutrophils/100 leukocytes 48 % [...] Serum or plasma sodium measurement (moles/volume) 138 mmol/L 135-145 Serum or plasma potassium measurement (moles/volume) 3.6 mmol/L 3.6-5.0 Serum or plasma chloride measurement (moles/volume) 102 mmol/L 98-107 Carbon dioxide 25 mmol/L 21-32 Serum or plasma anion gap determination (moles/volume) 11 mmol/L 5-14 Serum or plasma urea nitrogen measurement (mass/volume) 8 mg/dL 7-18 Serum or plasma creatinine measurement (mass/volume) 0.66 mg/dL 0.60-1.30 Serum or plasma urea nitrogen/creatinine mass [...] or plasma amylase measurement (enzymatic activity/volume) 61 U /L 25-125 Lipase - 09/06/16 07:50 Lipase 45 U/L 8-78 Ammonia - 09/06/16 07:50 Ammonia 54 umol/L 11-32 Serum or plasma ethanol measurement (mass/volume) - 09/06/16 07:50 Serum or plasma ethanol measurement (mass/volume) < mg/dL <10 Complete urinalysis with reflex to culture - 09/06/16 07:50 Urine color determination YELLOW NRG Urine clarity determination CLEAR NRG Urine pH measurement by test strip 6.5 5-9 Specific gravity of urine by test strip 1.010 1.016- 1.022 Urine protein assay by test strip, semi-quantitative [...] 18:49 Blood leukocytes automated count (number/volume) 7.9 10*3/uL 4.3-11.0 Blood erythrocytes automated count (number/volume) 4.37 10*6/uL 4.35-5.85 Venous blood hemoglobin measurement (mass/volume) 13.9 [...] Automated blood platelet mean volume measurement 11.0 [foz_us] 7.4-10.4 Automated blood neutrophils/100 leukocytes 50 % [...] Serum or plasma sodium measurement (moles/volume) 139 mmol/L 135-145 Serum or plasma potassium measurement (moles/volume) 3.9 mmol/L 3.6-5.0 Serum or plasma chloride measurement (moles/volume) 102 mmol/L 98-107 Carbon dioxide 23 mmol/L 21-32 Serum or plasma anion gap determination (moles/volume) 14 mmol/L 5-14 Serum or plasma urea nitrogen measurement (mass/volume) 5 mg/dL 7-18 Serum or plasma creatinine measurement (mass/volume) 0.68 mg/dL 0.60-1.30 Serum or plasma urea nitrogen/creatinine mass ratio 7 0- 20 Serum or plasma creatinine measurement with calculation [...] or plasma amylase measurement (enzymatic activity/volume) 91 U /L 25-125 Lipase - 10/07/16 18:49 Lipase 44 U/L 8-78 Serum or plasma ethanol measurement (mass/volume) - 10/07/16 18:49 Serum or plasma ethanol measurement (mass/volume) 22 mg/dL <10 Complete urinalysis with reflex to culture - 10/07/16 18:58 Urine color determination YELLOW NRG Urine clarity determination CLEAR NRG Urine pH measurement by test strip 6 5-9 Specific gravity of urine by test strip 1.010 1.016- 1.022 Urine protein assay by test strip, semi-quantitative [...] 05:35 Blood leukocytes automated count (number/volume) 7.7 10*3/uL 4.3-11.0 Blood erythrocytes automated count (number/volume) 4.04 10*6/uL 4.35-5.85 Venous blood hemoglobin measurement (mass/volume) 12.9 [...] Automated blood platelet mean volume measurement 11.1 [foz_us] 7.4-10.4 Automated blood neutrophils/100 leukocytes 58 % [...] Serum or plasma sodium measurement (moles/volume) 138 mmol/L 135-145 Serum or plasma potassium measurement (moles/volume) 3.4 mmol/L 3.6-5.0 Serum or plasma chloride measurement (moles/volume) 103 mmol/L 98-107 Carbon dioxide 22 mmol/L 21-32 Serum or plasma anion gap determination (moles/volume) 13 mmol/L 5-14 Serum or plasma urea nitrogen measurement (mass/volume) 5 mg/dL 7-18 Serum or plasma creatinine measurement (mass/volume) 0.62 mg/dL 0.60-1.30 Serum or plasma urea nitrogen/creatinine mass ratio 8 0- 20 Serum or plasma creatinine measurement with calculation [...] or plasma amylase measurement (enzymatic activity/volume) 65 U /L 25-125 Lipase - 10/08/16 05:35 Lipase 21 U/L 8-78 Complete blood count (CBC) with automated white blood cell (WBC) differential - 10/09/16 06:34 Blood leukocytes automated count (number/volume) 5.0 10*3/uL 4.3-11.0 Blood erythrocytes automated count (number/volume) 4.15 10*6/uL 4.35-5.85 Venous blood hemoglobin measurement (mass/volume) 13.2 [...] Automated blood platelet mean volume measurement 10.7 [foz_us] 7.4-10.4 Automated blood neutrophils/100 leukocytes 44 % [...] Serum or plasma sodium measurement (moles/volume) 138 mmol/L 135-145 Serum or plasma potassium measurement (moles/volume) 3.9 mmol/L 3.6-5.0 Serum or plasma chloride measurement (moles/volume) 107 mmol/L 98-107 Carbon dioxide 22 mmol/L 21-32 Serum or plasma anion gap determination (moles/volume) 9 mmol/L 5-14 Serum or plasma urea nitrogen measurement (mass/volume) 5 mg/dL 7-18 Serum or plasma creatinine measurement (mass/volume) 0.63 mg/dL 0.60-1.30 Serum or plasma urea nitrogen/creatinine mass ratio 8 0- 20 Serum or plasma creatinine measurement with calculation [...] or plasma amylase measurement (enzymatic activity/volume) 57 U /L 25-125 Lipase - 10/09/16 06:34 Lipase 18 U/L 8-78 Complete blood count (CBC) with automated white blood cell (WBC) differential - 12/05/16 10:10 Blood leukocytes automated count (number/volume) 8.1 10*3/uL 4.3-11.0 Blood erythrocytes automated count (number/volume) 4.33 10*6/uL 4.35-5.85 Venous blood hemoglobin measurement (mass/volume) 13.4 g/dL 11.5-16.0 Blood hematocrit (volume fraction) 39 % 35-52 Automated erythrocyte mean corpuscular volume 91 [foz_us] 80-99 Automated erythrocyte mean corpuscular hemoglobin (mass per erythrocyte) 31 pg 25-34 Automated erythrocyte mean corpuscular hemoglobin concentration measurement ( mass/volume) 34 g/dL 32-36 Automated erythrocyte distribution width ratio 15.2 % 10.0-14.5 Automated blood platelet count (count/volume) 170 10*3/uL 130-400 Automated blood platelet mean volume measurement 10.3 [foz_us] 7.4-10.4 Automated blood neutrophils/100 leukocytes 58 % 42-75 Automated blood lymphocytes/100 leukocytes 32 % 12-44 Blood monocytes/100 leukocytes 8 % 0-12 Automated blood eosinophils/100 leukocytes 2 % 0-10 Automated blood basophils/100 leukocytes 1 % 0-10 Blood neutrophils automated count (number/volume) 4.7 10*3 1.8-7.8 Blood lymphocytes automated count (number/volume) 2.6 10*3 1.0-4.0 Blood monocytes automated count (number/volume) 0.6 10*3 0.0-1.0 Automated eosinophil count 0.2 10*3/uL 0.0-0.3 Automated blood basophil count (count/volume) 0.1 10*3/uL 0.0-0.1 Serum heterophile antibody titer - 12/05/16 10:10 Serum heterophile antibody titer NEGATIVE NEGATIVE Comprehensive metabolic panel - 12/05/16 10:10 Serum or plasma sodium measurement (moles/volume) 140 mmol/L 135-145 Serum or plasma potassium measurement (moles/volume) 3.4 mmol/L 3.6-5.0 Serum or plasma chloride measurement (moles/volume) 102 mmol/L 98-107 Carbon dioxide 21 mmol/L 21-32 Serum or plasma anion gap determination (moles/volume) 17 mmol/L 5-14 Serum or plasma urea nitrogen measurement (mass/volume) 3 mg/dL 7-18 Serum or plasma creatinine measurement (mass/volume) 0.62 mg/dL 0.60-1.30 Serum or plasma urea nitrogen/creatinine mass ratio 5 NRG Serum or plasma creatinine measurement with calculation of estimated glomerular filtration rate > NRG Serum or plasma glucose measurement (mass/volume) 117 mg/dL 70-105 Serum or plasma calcium measurement (mass/volume) 9.4 mg/dL 8.5-10.1 Serum or plasma total bilirubin measurement (mass/volume) 1.0 mg/dL 0.1-1.0 Serum or plasma alkaline phosphatase measurement (enzymatic activity/volume) 109 U/L 40-136 Serum or plasma aspartate aminotransferase measurement (enzymatic activity/ volume) 108 U/L 5-34 Serum or plasma alanine aminotransferase measurement (enzymatic activity/volume ) 54 U/L 0-55 Serum or plasma protein measurement (mass/volume) 9.0 g/dL 6.4-8.2 Serum or plasma albumin measurement (mass/volume) 4.0 g/dL 3.2-4.5 Lipase - 12/05/16 10:10 Lipase 24 U/L 8-78 Serum or plasma ethanol measurement (mass/volume) - 12/05/16 10:45 Serum or plasma ethanol measurement (mass/volume) < mg/dL <10 Complete urinalysis with reflex to culture - 12/05/16 11:43 Urine color determination YELLOW NRG Urine clarity determination SLIGHTLY CLOUDY NRG Urine pH measurement by test strip 6 5-9 Specific gravity of urine by test strip 1.015 1.016- 1.022 Urine protein assay by test strip, semi-quantitative [...] detection in urine sediment by light microscopy 5-10 NRG Crystals detection in urine sediment by light microscopy NONE NRG Casts detection in urine sediment by light microscopy NONE NRG Mucus detection in urine sediment by light microscopy SMALL NRG Complete urinalysis with reflex to culture NO NRG Yeast detection in urine sediment by light microscopy FEW NRG Complete blood count (CBC) with automated white blood cell (WBC) differential - 12/06/16 05:17 Blood leukocytes automated count (number/volume) 6.2 10*3/uL 4.3-11.0 Blood erythrocytes automated count (number/volume) 4.03 10*6/uL 4.35-5.85 Venous blood hemoglobin measurement (mass/volume) 12.4 g/dL 11.5-16.0 Blood hematocrit (volume fraction) 38 % 35-52 Automated erythrocyte mean corpuscular volume 93 [foz_us] 80-99 Automated erythrocyte mean corpuscular hemoglobin (mass per erythrocyte) 31 pg 25-34 Automated erythrocyte mean corpuscular hemoglobin concentration measurement ( mass/volume) 33 g/dL 32-36 Automated erythrocyte distribution width ratio 15.1 % 10.0-14.5 Automated blood platelet count (count/volume) 124 10*3/uL 130-400 Automated blood platelet mean volume measurement 10.8 [foz_us] 7.4-10.4 Automated blood neutrophils/100 leukocytes 53 % 42-75 Automated blood lymphocytes/100 leukocytes 33 % 12-44 Blood monocytes/100 leukocytes 7 % 0-12 Automated blood eosinophils/100 leukocytes 6 % 0-10 Automated blood basophils/100 leukocytes 1 % 0-10 Blood neutrophils automated count (number/volume) 3.3 10*3 1.8-7.8 Blood lymphocytes automated count (number/volume) 2.1 10*3 1.0-4.0 Blood monocytes automated count (number/volume) 0.4 10*3 0.0-1.0 Automated eosinophil count 0.4 10*3/uL 0.0-0.3 Automated blood basophil count (count/volume) 0.0 10*3/uL 0.0-0.1 Comprehensive metabolic panel - 12/06/16 05:17 Serum or plasma sodium measurement (moles/volume) 138 mmol/L 135-145 Serum or plasma potassium measurement (moles/volume) 3.4 mmol/L 3.6-5.0 Serum or plasma chloride measurement (moles/volume) 102 mmol/L 98-107 Carbon dioxide 25 mmol/L 21-32 Serum or plasma anion gap determination (moles/volume) 11 mmol/L 5-14 Serum or plasma urea nitrogen measurement (mass/volume) 3 mg/dL 7-18 Serum or plasma creatinine measurement (mass/volume) 0.54 mg/dL 0.60-1.30 Serum or plasma urea nitrogen/creatinine mass ratio 6 NRG Serum or plasma creatinine measurement with calculation of estimated glomerular filtration rate > NRG Serum or plasma glucose measurement (mass/volume) 92 mg/dL 70-105 Serum or plasma calcium measurement (mass/volume) 8.6 mg/dL 8.5-10.1 Serum or plasma total bilirubin measurement (mass/volume) 1.4 mg/dL 0.1-1.0 Serum or plasma alkaline phosphatase measurement (enzymatic activity/volume) 92 U/L 40-136 Serum or plasma aspartate aminotransferase measurement (enzymatic activity/ volume) 79 U/L 5-34 Serum or plasma alanine aminotransferase measurement (enzymatic activity/volume ) 45 U/L 0-55 Serum or plasma protein measurement (mass/volume) 7.9 g/dL 6.4-8.2 Serum or plasma albumin measurement (mass/volume) 3.6 g/dL 3.2-4.5 Complete blood count (CBC) with automated white blood cell (WBC) differential - 01/10/17 11:20 Blood leukocytes automated count (number/volume) 7.5 10*3/uL 4.3-11.0 Blood erythrocytes automated count (number/volume) 4.19 10*6/uL 4.35-5.85 Venous blood hemoglobin measurement (mass/volume) 13.1 g/dL 11.5-16.0 Blood hematocrit (volume fraction) 40 % 35-52 Automated erythrocyte mean corpuscular volume 94 [foz_us] 80-99 Automated erythrocyte mean corpuscular hemoglobin (mass per erythrocyte) 31 pg 25-34 Automated erythrocyte mean corpuscular hemoglobin concentration measurement ( mass/volume) 33 g/dL 32-36 Automated erythrocyte distribution width ratio 16.0 % 10.0-14.5 Automated blood platelet count (count/volume) 155 10*3/uL 130-400 Automated blood platelet mean volume measurement 9.9 [foz_us] 7.4-10.4 Automated blood neutrophils/100 leukocytes 59 % 42-75 Automated blood lymphocytes/100 leukocytes 27 [...] 0.1 10*3/uL 0.0-0.1 Comprehensive metabolic panel - 01/10/17 11:20 Serum or plasma sodium measurement (moles/volume) 135 mmol/L 135-145 Serum or plasma potassium measurement (moles/volume) 3.5 mmol/L 3.6-5.0 Serum or plasma chloride measurement (moles/volume) 98 mmol/L 98-107 Carbon dioxide 29 mmol/L 21-32 Serum or plasma anion gap determination (moles/volume) 8 mmol/L 5-14 Serum or plasma urea nitrogen measurement (mass/volume) 4 mg/dL 7-18 Serum or plasma creatinine measurement (mass/volume) 0.63 mg/dL 0.60-1.30 Serum or plasma urea nitrogen/creatinine mass ratio 6 NRG Serum or plasma creatinine measurement with calculation of estimated glomerular filtration rate > NRG Serum or plasma glucose measurement (mass/volume) 114 mg/dL 70-105 Serum or plasma calcium measurement (mass/volume) 8.7 mg/dL 8.5-10.1 Serum or plasma total bilirubin measurement (mass/volume) 1.3 mg/dL 0.1-1.0 Serum or plasma alkaline phosphatase measurement (enzymatic activity/volume) 131 U/L 40-136 Serum or plasma aspartate aminotransferase measurement (enzymatic activity/ volume) 91 U/L 5-34 Serum or plasma alanine aminotransferase measurement (enzymatic activity/volume ) 53 U/L 0-55 Serum or plasma protein measurement (mass/volume) 8.4 g/dL 6.4-8.2 Serum or plasma albumin measurement (mass/volume) 3.6 g/dL 3.2-4.5 Lipase - 01/10/17 11:20 Lipase 13 U/L 8-78 Serum or plasma ethanol measurement (mass/volume) - 01/10/17 11:20 Serum or plasma ethanol measurement (mass/volume) < mg/dL <10 PT panel in platelet poor plasma by coagulation assay - 01/10/17 11:20 Prothrombin time (PT) in platelet poor plasma by coagulation assay 14.6 s 12.2-14.7 INR in platelet poor plasma or blood by coagulation assay 1.1 0.8-1.4 Urine drug screening test - 01/10/17 13:05 Urine phencyclidine detection by screening method NEGATIVE [...] NEGATIVE Urine propoxyphene detection NEGATIVE NEGATIVE Complete urinalysis with reflex to culture - 01/10/17 13:05 Urine color determination YELLOW NRG Urine clarity determination CLEAR NRG Urine pH measurement by test strip 8 5-9 Specific gravity of urine by test strip 1.010 1.016- 1.022 Urine protein assay by test strip, semi-quantitative [...] urinalysis with reflex to culture NO NRG Comprehensive metabolic panel - 03/27/17 11:05 Serum or plasma sodium measurement (moles/volume) 139 mmol/L 135-145 Serum or plasma potassium measurement (moles/volume) 4.3 mmol/L 3.6-5.0 Serum or plasma chloride measurement (moles/volume) 104 mmol/L 98-107 Carbon dioxide 28 mmol/L 21-32 Serum or plasma anion gap determination (moles/volume) 7 mmol/L 5-14 Serum or plasma urea nitrogen measurement (mass/volume) 10 mg/dL 7-18 Serum or plasma creatinine measurement (mass/volume) 0.66 mg/dL 0.60-1.30 Serum or plasma urea nitrogen/creatinine mass ratio 15 NRG Serum or plasma creatinine measurement with calculation of estimated glomerular filtration rate > NRG Serum or plasma glucose measurement (mass/volume) 105 mg/dL 70-105 Serum or plasma calcium measurement (mass/volume) 9.2 mg/dL 8.5-10.1 Serum or plasma total bilirubin measurement (mass/volume) 0.6 mg/dL 0.1-1.0 Serum or plasma alkaline phosphatase measurement (enzymatic activity/volume) 160 U/L 40-136 Serum or plasma aspartate aminotransferase measurement (enzymatic activity/ volume) 45 U/L 5-34 Serum or plasma alanine aminotransferase measurement (enzymatic activity/volume ) 24 U/L 0-55 Serum or plasma protein measurement (mass/volume) 8.5 g/dL 6.4-8.2 Serum or plasma albumin measurement (mass/volume) 3.7 g/dL 3.2-4.5 Lipase - 03/27/17 11:05 Lipase 37 U/L 8-78 Serum or plasma ethanol measurement (mass/volume) - 03/27/17 11:05 Serum or plasma ethanol measurement (mass/volume) < mg/dL <10 Complete blood count (CBC) with automated white blood cell (WBC) differential - 03/27/17 11:25 Blood leukocytes automated count (number/volume) 7.0 10*3/uL 4.3-11.0 Blood erythrocytes automated count (number/volume) 4.15 10*6/uL 4.35-5.85 Venous blood hemoglobin measurement (mass/volume) 13.1 g/dL 11.5-16.0 Blood hematocrit (volume fraction) 40 % 35-52 Automated erythrocyte mean corpuscular volume 95 [foz_us] 80-99 Automated erythrocyte mean corpuscular hemoglobin (mass per erythrocyte) 32 pg 25-34 Automated erythrocyte mean corpuscular hemoglobin concentration measurement ( mass/volume) 33 g/dL 32-36 Automated erythrocyte distribution width ratio 15.3 % 10.0-14.5 Automated blood platelet count (count/volume) 126 10*3/uL 130-400 Automated blood platelet mean volume measurement 10.6 [foz_us] 7.4-10.4 Automated blood neutrophils/100 leukocytes 51 % 42-75 Automated blood lymphocytes/100 leukocytes 34 % 12-44 Blood monocytes/100 leukocytes 8 % 0-12 Automated blood eosinophils/100 leukocytes 6 % 0-10 Automated blood basophils/100 leukocytes 1 % 0-10 Blood neutrophils automated count (number/volume) 3.5 10*3 1.8-7.8 Blood lymphocytes automated count (number/volume) 2.4 10*3 1.0-4.0 Blood monocytes automated count (number/volume) 0.6 10*3 0.0-1.0 Automated eosinophil count 0.4 10*3/uL 0.0-0.3 Automated blood basophil count (count/volume) 0.1 10*3/uL 0.0-0.1 Complete urinalysis with reflex to culture - 03/27/17 11:25 Urine color determination YELLOW NRG Urine clarity determination SLIGHTLY CLOUDY NRG Urine pH measurement by test strip 7 5-9 Specific gravity of urine by test strip 1.010 1.016- 1.022 Urine protein assay by test strip, semi-quantitative [...] detection in urine sediment by light microscopy TNTC NRG Crystals detection in urine sediment by light microscopy NONE NRG Casts detection in urine sediment by light microscopy NONE NRG Mucus detection in urine sediment by light microscopy NEGATIVE NRG Complete urinalysis with reflex to culture NO NRG Yeast detection in urine sediment by light microscopy MODERATE NRG Encounters ACCT No. Visit Date/Time Discharge Status Pt. Type Provider Facility Loc./Unit Complaint [id number] 01/26/2009 00:00:00 01/26/2009 23:59:59 CLS Outpatient MIKE LEWIS DO [id number] 03/27/2017 09:55:00 03/27/2017 13:22:00 DIS Emergency MARTIN ACUNA [facility] ER VOMITED BLOOD [id number] 01/10/2017 11:09:00 01/10/2017 14:02:00 DIS Emergency IVY HARDY APRN [facility] ER STOMACH PAIN [id number] 12/05/2016 13:15:00 12/06/2016 12:30:00 DIS Inpatient TEQUILA MARINORINKU [facility] 4TH N/V,DEHYDRATION, CHRONIC BACK PAIN [id number] 10/19/2016 08:35:00 10/19/2016 23:59:59 CLS Outpatient SHEREENELADIA MARINORINKU [facility] RAD ABNORMAL MAMMO R92.8 [id number] 10/07/2016 22:20:00 10/09/2016 11:20:00 DIS Inpatient RINKU MANDEL DO [facility] 4TH ABDOMINAL PAIN [id number] 10/03/2016 08:43:00 10/03/2016 23:59:59 CLS Outpatient TEQUILA MARINORINKU [facility] RAD YEARLY MAMMO [id number] 10/02/2016 09:49:00 10/02/2016 23:59:59 CLS Outpatient TEQUILA MARINO RINKU Nakul [facility] RAD POST MENOPAUSAL BLEEDING [id number] 09/06/2016 07:13:00 09/06/2016 10:00:00 DIS Emergency DAGOBERTO WOMACK DO [facility] ER THROWING UP BLOOD,BACK PAIN [id number] 09/01/2016 20:01:00 09/01/2016 23:36:00 DIS Emergency AROLDO MERCADO MD [facility] ER COUGHING UP BLOOD [id number] 05/08/2016 09:12:00 05/08/2016 13:00:00 DIS Emergency PJ TREJO [facility] ER STOMACH/BACK PAIN [id number] 02/26/2016 16:23:00 02/26/2016 19:04:00 DIS Emergency PJ TREJO [facility] ER CHEST PAIN, SOA [id number] 02/19/2016 22:43:00 02/19/2016 23:54:00 DIS Emergency DAGOBERTO WOMACK DO [facility] ER URINATION PAIN [id number] 02/08/2016 08:42:00 02/08/2016 23:59:59 CLS Outpatient RINKU MANDEL DO [facility] RAD LUNG MASS VS MUCUS PLUG [id number] 01/18/2016 13:46:00 01/18/2016 17:32:00 DIS Emergency AROLDO MERCADO MD [facility] ER CONFUSION WEAKNESS [id number] 11/24/2015 11:02:00 11/24/2015 23:59:59 CLS Outpatient RINKU MANDEL DO [facility] RAD FELL AND NOW NECK PAIN [id number] 11/09/2015 10:39:00 11/09/2015 12:33:00 DIS Emergency IVY HARDY APRN [facility] ER VOMITING BLOOD/STOMACH PAIN [id number] 10/22/2015 08:49:00 10/22/2015 12:30:00 DIS Emergency AROLDO MERCADO MD [facility] ER UPPER ABD PAIN [id number] 08/26/2015 11:42:00 08/26/2015 16:28:00 DIS Emergency MARTIN ACUNA [facility] ER ABDOMINAL PAIN [id number] 08/25/2015 21:39:00 08/26/2015 00:23:00 DIS Emergency GOLD HOWARD MD [facility] ER UPPER ABD PAIN [id number] 08/16/2015 10:01:00 08/18/2015 09:10:00 DIS Inpatient RINKU MANDEL DO [facility] 4TH UPPER GI BLEED [id number] 08/15/2015 21:53:00 08/15/2015 22:09:00 DIS Emergency GOYO PARK DO [facility] ER THROWING UP BLOOD [id number] 05/05/2015 09:13:00 05/05/2015 10:05:00 DIS Emergency DAGOBERTO WOMACK DO [facility] ER BACK PAIN [id number] 04/26/2015 09:09:00 04/26/2015 11:38:00 DIS Emergency AROLDO MERCADO MD [facility] ER FALL/BACK PAIN [id number] 03/03/2015 08:59:00 03/03/2015 23:59:59 CLS Outpatient RINKU MANDEL DO [facility] LAB NODULE IN LIVER, CIRRHOSIS [id number] 02/12/2015 08:43:00 02/12/2015 23:59:59 CLS Outpatient RINKU MANDEL DO [facility] RAD ABNORMAL CT [id number] 02/05/2015 09:48:00 02/05/2015 23:59:59 CLS Outpatient RINKU MANDEL DO [facility] RAD ABNORMAL CT [id number] 01/25/2015 09:29:00 01/25/2015 12:45:00 DIS Emergency GOLD HOWARD MD [facility] ER ABD PAIN [id number] 01/19/2015 09:13:00 01/19/2015 12:31:00 DIS Emergency IVY HARDY APRN [facility] ER FEVER/ABD PAIN [id number] 12/21/2014 08:00:00 12/21/2014 23:59:59 CLS Preadmit PENELOPE COLLAZO [facility] CARD COPD,HTN, PALPITATIONS [id number] 09/21/2014 08:01:00 12/20/2014 00:01:00 DIS Outpatient PENELOPE COLLAZO [facility] CARD COPD,HTN, PALPITATIONS [id number] 12/02/2014 09:35:00 12/02/2014 23:59:59 CLS Outpatient RINKU MANDEL DO [facility] RAD LEFT HIP PAIN- GETTING WORSE [id number] 10/16/2014 08:30:00 10/16/2014 09:25:00 DIS Emergency AROLDO MERCADO MD [facility] ER FALL LEFT SHOULDER PAIN [id number] 07/14/2014 10:01:00 07/14/2014 23:59:59 CLS Outpatient MAYCOL GUERRA MD [facility] PREOP POSTERIOR LAMINECTOMY SYNDROME; SEE NOTES [id number] 06/08/2014 07:30:00 06/08/2014 23:59:59 CLS Preadmit MAYCOL GUERRA MD [facility] SURG POSTERIOR LAMINECTOMY SYNDROME; SEE NOTES [id number] 05/20/2014 09:02:00 05/20/2014 23:59:59 CLS Outpatient MAYCOL GUERRA MD [facility] PREOP POSTERIOR LAMINECTOMY SYNDROME; SEE NOTES [id number] 12/29/2013 08:06:00 12/29/2013 23:59:59 CLS Outpatient CARLOS HUNT MD [facility] RAD STENOSIS [id number] 08/12/2013 07:15:00 08/12/2013 08:53:00 DIS Emergency GOLD HOWARD MD [facility] ER FALL RIGHT KNEE PAIN/ RIGHT HAND LAC [id number] 03/10/2013 09:14:00 03/10/2013 10:40:00 DIS Emergency GOLD HOWARD MD [facility] ER BACK PAIN [id number] 03/03/2013 07:33:00 03/03/2013 23:59:59 CLS Outpatient LORENZO CHAVEZ MD [facility] RAD CP,HTN,SOB [id number] 02/12/2013 08:53:00 02/12/2013 23:59:59 CLS Outpatient LORENZO CHAVEZ MD [facility] CARD CP,HTN,SOB [id number] 12/23/2014 08:51:00 Document Registration [id number] 09/18/2014 14:54:00 Document Registration [id number] 09/18/2014 14:54:00 Document Registration [id number] 09/18/2014 14:54:00 Document Registration [id number] 09/18/2014 14:54:00 Document Registration [id number] 09/18/2014 14:54:00 Document Registration [id number] 03/23/2014 15:52:00 Document Registration [id number] 03/23/2014 15:51:00 Document Registration [id number] 08/07/2012 17:50:00 Document Registration [id number] 11/14/2010 10:39:00 Document Registration [id number] 11/01/2010 08:06:00 Document Registration [id number] 10/26/2010 08:37:00 Document Registration [id number] 08/10/2009 02:18:00 Document Registration [id number] 01/26/2015 03:18:11 ACT Document Registration
--- NOTE | 2017-09-20 08:25 | ED Abdominal Pain ---
General Chief Complaint: Abdominal/GI Problems Stated Complaint: ABD PAIN Nursing Triage Note: TO ROOM C/O CHRONIC ABD PAIN ONSET YESTERDAY. PMH OF LIVER DIEASE. DRANK 1/2 BEER TO HELP WIHT PAIN Sepsis Screen: No Definite Risk Source of Information: Patient, Old Records Exam Limitations: No Limitations History of Present Illness Date Seen by Provider: September 20, 2017 Time Seen by Provider: 07:57 Initial Comments This 52-year-old woman presents to the emergency room with complaints of abdominal pain, vomiting, and diarrhea. She has history of hepatitis C and alcoholism. She has had blood in her emesis and stools in the past but denies any blood in the last 24 hours. She thinks she had a subjective fever yesterday. She continues to drink alcohol. She had one beer this morning around 03:00. She continues to drink a sixpack of beer 2 or [address] Mandel as her primary care provider. Allergies and Home Medications Allergies Coded Allergies: codeine (Verified Allergy, Unknown, 10/07/16) Home Medications Albuterol Sulfate 18 Gm Hfa.aer.ad, 2 PUFF IH Q4H PRN for SHORTNESS OF BREATH, ( Reported) Alprazolam 0.5 Mg Tablet, 0.5 MG PO HS PRN for ANXIETY, (Reported) Amlodipine Besylate 10 Mg Tablet, 10 MG PO DAILY, (Reported) Cyclobenzaprine HCl 10 Mg Tablet, 10 MG PO BID, (Reported) Fluticasone/Salmeterol 1 Each Blst.w.dev, 1 PUFF INH BID, (Reported) Gabapentin 300 Mg Capsule, 600 MG PO HS, (Reported) TAKES 2 (300MG) CAPSULES Ondansetron 4 Mg Tab.rapdis, 4 MG PO Q6H PRN for NAUSEA/VOMITING-1ST LINE, ( Reported) Ondansetron 8 Mg Tab.rapdis, 8 MG PO Q6H PRN for NAUSEA/VOMITING-1ST LINE Prescribed by: MARTIN HOLLINGSWORTH on 03/27/17 1238 Ondansetron 4 Mg Tab.rapdis, 4 MG SL Q4H PRN for NAUSEA/VOMITING-1ST LINE Prescribed by: GOLD DILLARD on 09/20/17 1156 Pantoprazole Sodium 40 Mg Tablet.dr, 40 MG PO DAILY, (Reported) Pantoprazole Sodium 40 Mg Tablet.dr, 40 MG PO BID Prescribed by: MARTIN HOLLINGSWORTH on 03/27/17 1238 Promethazine HCl 25 Mg Tablet, 25 MG PO Q8H PRN for NAUSEA/VOMITING-2ND LINE Prescribed by: GOLD DILLARD on 09/20/17 1156 Sucralfate 1 Gm Tablet, 2 GM PO BID, (Reported) TAKES 2 (1 GM) TABLETS Sucralfate 1 Gm/10 Ml Oral.susp, 1 GM PO ACHS Prescribed by: MARTIN HOLLINGSWORTH on 03/27/17 1238 Tramadol HCl 50 Mg Tablet, 50 MG PO BID PRN for PAIN-MILD, (Reported) Patient Home Medication List Home Medication List Reviewed: Yes Review of Systems Constitutional: see HPI EENTM: No Symptoms Reported Respiratory: No Symptoms Reported Cardiovascular: No Symptoms Reported Gastrointestinal: See HPI Genitourinary: See HPI Musculoskeletal: no symptoms reported Skin: no symptoms reported Psychiatric/Neurological: See HPI Endocrine: No Symptoms Reported Hematologic/Lymphatic: No Symptoms Reported Past Tnjiozv-Zovzrm-Mpuisn Hx Patient Social History Alcohol Use: Occasionally Uses Number of Drinks Today: AA Alcohol Beverage of Choice: Beer Recreational Drug Use: Yes (PRESENT AND PAST IV DRUG, SMOKING THC, ALCOHOL, NARCOTICS) Drug of Choice: MARIJUANA Smoking Status: Current Everyday Smoker Type Used: Cigarettes 2nd Hand Smoke Exposure: Yes Recent Foreign Travel: No Contact w/Someone Who Travel: No Recent Infectious Disease Expo: No Recent Hopitalizations: Yes Immunizations Up To Date Tetanus Booster (TDap): More than 5yrs PED Vaccines UTD: No Date of Pneumonia Vaccine: Jul 22, 2008 Date of Influenza Vaccine: Jan 17, 2016 Seasonal Allergies Seasonal Allergies: Yes Past Medical History Surgeries: Yes Abdominal, Adenoidectomy, Orthopedic, Tonsillectomy Respiratory: Yes Asthma, COPD Currently Using CPAP: No Currently Using BIPAP: No Cardiac: Yes Heart Murmur, Hypertension Neurological: Yes 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 Disorders: Yes 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 Sexually Transmitted Disease: No HIV/AIDS: No Genitourinary: No Kidney Stones Gastrointestinal: Yes (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; ALCOHOLIC GASTRITIS) Gastroesophageal Reflux, Liver Disease/Jaundice, Gastrointestinal Bleed, Esophageal Varices, Hepatitis, Cirrhosis Musculoskeletal: Yes Arthritis, Fibromyalgia, Chronic Back Pain Endocrine: No HEENT: No Cancer: No Psychosocial: Yes ADD/ADHD, Anxiety Integumentary: No Blood Disorders: No Adverse Reaction/Blood Tranf: No Family Medical History Alcoholism G8 SISTER Cardiovascular disease 19 FATHER Colon cancer G8 BROTHER Diabetes mellitus G8 BROTHER Drug abuse G8 SISTER FH: cancer 19 MOTHER (BRAIN) G8 BROTHER Glaucoma 19 FATHER Hypertension 19 FATHER Myocardial infarction 19 FATHER Psychosocial problem 19 FATHER G8 BROTHER G8 SISTER No Family History of: AIDS Abdominal aortic aneurysm Alzheimer's disease Arthritis Asthma Completed stroke Parkinson's disease Respiratory disorder Seizure disorder Severe allergy Thyroid disease No Pertinent Family Hx Physical Exam Vital Signs Vital Signs - First Documented 09/20/17 09/20/17 07:57 12:18 Temp 98.2 Pulse 94 Resp 18 B/P (MAP) 123/86 (98) Pulse Ox 97 O2 Delivery Room Air Capillary Refill : Less Than 3 Seconds General Appearance: WD/WN, no apparent distress HEENT: PERRL/EOMI, normal ENT inspection, other (oropharynx somewhat dry) Neck: normal inspection Respiratory: lungs clear, normal breath sounds, no respiratory distress, no accessory muscle use Cardiovascular: regular rate, rhythm, no edema, no murmur Gastrointestinal: normal bowel sounds, distended, tenderness (tenderness throughout and greater in the upper quadrants. 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 nml as tested, no motor/sensory deficits, alert, normal mood/affect, oriented x 3 Skin: normal color, warm/dry Progress/Results/Core Measures Results/Orders Lab Results Laboratory Tests Test 09/20/17 08:30 09/20/17 08:33 Range/Units White Blood Count 7.0 4.3-11.0 10^3/uL Red Blood Count 4.18 L 4.35-5.85 10^6/uL Hemoglobin 13.2 11.5-16.0 G/DL Hematocrit 38 35-52 % Mean Corpuscular Volume 90 80-99 FL Mean Corpuscular Hemoglobin 32 25-34 PG Mean Corpuscular Hemoglobin Concent 35 32-36 G/DL Red Cell Distribution Width 15.8 H 10.0-14.5 % Platelet Count 147 130-400 10^3/uL Mean Platelet Volume 10.4 7.4-10.4 FL Neutrophils (%) (Auto) 60 42-75 % Lymphocytes (%) (Auto) 27 12-44 % Monocytes (%) (Auto) 9 0-12 % Eosinophils (%) (Auto) 2 0-10 % Basophils (%) (Auto) 1 0-10 % Neutrophils # (Auto) 4.2 1.8-7.8 X 10^3 Lymphocytes # (Auto) 1.9 1.0-4.0 X 10^3 Monocytes # (Auto) 0.7 0.0-1.0 X 10^3 Eosinophils # (Auto) 0.2 0.0-0.3 10^3/uL Basophils # (Auto) 0.1 0.0-0.1 10^3/uL Prothrombin Time 14.4 12.2-14.7 SEC INR Comment 1.1 0.8-1.4 Activated Partial Thromboplast Time 32 24-35 SEC Sodium Level 138 135-145 MMOL/L Potassium Level 3.4 L 3.6-5.0 MMOL/L Chloride Level 96 L 98-107 MMOL/L Carbon Dioxide Level 23 21-32 MMOL/L Anion Gap 19 H 5-14 MMOL/L Blood Urea Nitrogen 5 L 7-18 MG/DL Creatinine 0.60 0.60-1.30 MG/DL Estimat Glomerular Filtration Rate > 60 BUN/Creatinine Ratio 8 Glucose Level 81 70-105 MG/DL Calcium Level 9.0 8.5-10.1 MG/DL Total Bilirubin 1.1 H 0.1-1.0 MG/DL Aspartate Amino Transf (AST/SGOT) 112 H 5-34 U/L Alanine Aminotransferase (ALT/SGPT) 58 H 0-55 U/L Alkaline Phosphatase 84 40-136 U/L Total Protein 8.4 H 6.4-8.2 GM/DL Albumin 4.0 3.2-4.5 GM/DL Lipase 22 8-78 U/L Serum Alcohol 50 H <10 MG/DL Urine Color YELLOW Urine Clarity CLEAR Urine pH 6 5-9 Urine Specific [place] 1.015 L 1.016-1.022 Urine Protein NEGATIVE NEGATIVE Urine Glucose (UA) NEGATIVE NEGATIVE Urine Ketones 3+ H NEGATIVE Urine Nitrite NEGATIVE NEGATIVE Urine Bilirubin NEGATIVE NEGATIVE Urine Urobilinogen NORMAL NORMAL MG/DL Urine Leukocyte Esterase NEGATIVE NEGATIVE Urine RBC (Auto) NEGATIVE NEGATIVE Urine RBC NONE /HPF Urine WBC NONE /HPF Urine Squamous Epithelial Cells 10-25 H /HPF Urine Crystals NONE /LPF Urine Bacteria NEGATIVE /HPF Urine Casts NONE /LPF Urine Mucus NEGATIVE /LPF Urine Yeast MODERATE H /HPF Urine Culture Indicated NO Urine Opiates Screen NEGATIVE NEGATIVE Urine Oxycodone Screen NEGATIVE NEGATIVE Urine Methadone Screen NEGATIVE NEGATIVE Urine Propoxyphene Screen NEGATIVE NEGATIVE Urine Barbiturates Screen NEGATIVE NEGATIVE Ur Tricyclic Antidepressants Screen NEGATIVE NEGATIVE Urine Phencyclidine Screen NEGATIVE NEGATIVE Urine Amphetamines Screen NEGATIVE NEGATIVE Urine Methamphetamines Screen NEGATIVE NEGATIVE Urine Benzodiazepines Screen POSITIVE H NEGATIVE Urine Cocaine Screen NEGATIVE NEGATIVE Urine Cannabinoids Screen POSITIVE H NEGATIVE My Orders Orders - GOLD HOWARD MD Cbc With Automated Diff (09/20/17 07:56) Comprehensive Metabolic Panel (09/20/17 07:56) Ua Culture If Indicated (09/20/17 07:56) Saline Lock/Iv-Start (09/20/17 07:56) Lipase (09/20/17 08:25) Protime With Inr (09/20/17 08:25) Partial Thromboplastin Time (09/20/17 08:25) Fentanyl Injection (Sublimaze Injection (09/20/17 08:30) Alcohol (09/20/17 08:25) Drug Screen Stat (Urine) (09/20/17 08:25) Saline Lock/Iv-Start (09/20/17 08:30) Ns Iv 500 Ml (Sodium Chloride 0.9%) (09/20/17 08:30) Ondansetron Injection (Zofran Injectio (09/20/17 08:45) Ranitidine Injection (Zantac Injection) (09/20/17 08:45) Morphine Injection (Morphine Injection (09/20/17 09:30) Ct Abdomen/Pelvis W (09/20/17 09:21) Iohexol Injection (Omnipaque 350 Mg/Ml 1 (09/20/17 09:30) Ns (Ivpb) (Sodium Chloride 0.9%) (09/20/17 09:30) Saline Lock/Iv-Start (09/20/17 10:10) Lactated Ringers (Lr 1000 Ml Iv Solution (09/20/17 10:10) Promethazine Injection (Phenergan Injec (09/20/17 11:15) Oxycodone Immediate Rel Tablet (Oxyir Ta (09/20/17 12:00) Medications Given in ED Current Medications Medications Dose Ordered Sig/Pino Route Start Time Stop Time Status Last Admin Dose Admin Iohexol 100 ml ONCE ONCE IV 09/20/17 09:30 09/20/17 09:31 DC 09/20/17 09:43 100 ML Lactated Ringer's 1,000 ml @ 0 mls/hr Q0M ONCE IV 09/20/17 10:10 09/20/17 10:11 DC 09/20/17 10:48 1,000 MLS/HR Morphine Sulfate 5 mg ONCE ONCE IVP 09/20/17 09:30 09/20/17 09:31 DC 09/20/17 09:24 5 MG Oxycodone HCl 5 mg ONCE ONCE PO 09/20/17 12:00 09/20/17 12:01 DC 09/20/17 12:08 5 MG Promethazine HCl 25 mg ONCE ONCE IVP 09/20/17 11:15 09/20/17 11:16 DC 09/20/17 11:09 25 MG Sodium Chloride 250 ml ONCE ONCE IV 09/20/17 09:30 09/20/17 09:31 DC 09/20/17 09:43 80 ML Vital Signs/I&O 09/20/17 09/20/17 07:57 12:18 Temp 98.2 Pulse 94 82 Resp 18 B/P (MAP) 123/86 (98) 141/76 Pulse Ox 97 O2 Delivery Room Air Room Air Blood Pressure Mean: 98 Progress Progress Note #1: Time: 08:57 Progress Note Patient seen and examined. Labs ordered. Normal saline 500 mL bolus is being administered. Fentanyl was ordered for pain. Zofran and ranitidine were ordered for GI symptoms. Progress Note #2: Progress Note Patient's nausea was treated with Zofran. Refractory nausea was treated with Phenergan. Workup was relatively unremarkable. CT scan showed no acute pathology that required immediate treatment or surgery. Changes associated with liver disease were noted. Patient's pain was treated with fentanyl followed by morphine followed by an oxycodone. She was encouraged to follow up with Dr. Mandel for her chronic pain management. I again discussed the dangers of continued alcohol consumption with her present health problems. Patient expressed understanding. She was given information regarding local drug and alcohol rehabilitation and support services. Diagnostic Imaging Diagonstic Imaging: CT Plain Films/CT/US/NM/MRI: abdomen, pelvis Comments CT abdomen and pelvis viewed by me and report reviewed. See report below: NAME: AMANDA TILLMAN [facility] REC#: [id number] PT STATUS: DEP ER : 1965 PHYSICIAN: GOLD HOWARD MD ADMIT DATE: 09/20/17/ER Signed Date of Exam: 09/20/17 CT ABDOMEN/PELVIS W PROCEDURE: CT abdomen and pelvis with contrast. TECHNIQUE: Multiple contiguous axial images were obtained through the abdomen and pelvis after administration of intravenous contrast. INDICATION: History of liver disease, left-sided pain. Exam compared to 01/10/2017. Fatty cirrhotic liver is a redemonstrated finding without appreciable liver mass. Sequelae of portal venous hypertension with vascular collateralization and esophageal varices unchanged. There was however no appreciable ascites. The uterus, adnexa and urinary bladder were unremarkable. There is no diverticulitis. There is no pneumatosis or free gas. There is no evidence for abscess. Kidneys are unobstructed. There is aortoiliac nonaneurysmal atherosclerosis. The pancreas normal. There is no evidence for pancreatitis. The spleen is within normal limits of size. IMPRESSION: Fatty cirrhotic liver and mild hepatomegaly with vascular collateralization presumptively owing to portal venous hypertension unchanged. No bowel, biliary or urinary tract obstruction. No substantial ascites with stable normal spleen size. No focal inflammatory process or acute abnormality is identified. Dictated by: Dictated on workstation # [id number] Dict: 09/20/17 1038 Trans: 09/20/171706 Interpreted by: CRISTAL CHAN Electronically signed by: CRISTAL CHAN 09/20/171706 Departure Impression Primary Impression: Nausea vomiting and diarrhea Additional Impressions: Cirrhosis Qualified Codes: K74.60 - Unspecified cirrhosis of liver Alcoholism Upper abdominal pain Disposition: 01 HOME, SELF-CARE Condition: Improved Departure-Patient Inst. Decision time for Depature: 11:45 Referrals: RINKU MANDEL DO (PCP/Family) Primary Care Physician Patient Instructions: Acute Abdomen (Belly Pain), Adult (DC) Add. Discharge Instructions: Follow-up with your primary care provider soon as possible Discontinue use of alcohol as this will worsen liver failure symptoms. Use Zofran (ondansetron) as your primary nausea medication. Add Phenergan ( promethazine) for nausea not controlled by Zofran. Follow-up with Dr. Mandel to discuss pain management. All discharge instructions reviewed with patient and/or family. Voiced understanding. Scripts Promethazine HCl (Promethazine Tablet) 25 Mg Tablet 25 MG PO Q8H PRN for NAUSEA/VOMITING-2ND LINE, #10 TAB Prov: GOLD HOWARD MD 09/20/17 Ondansetron (Zofran Odt) 4 Mg Tab.rapdis 4 MG SL Q4H PRN for NAUSEA/VOMITING-1ST LINE, #10 TAB Prov: GOLD HOWARD MD 09/20/17 Copy Copies To 1: RINKU MANDEL JOSHUA T MD September 20, 2017 08:25
[2017-09-20] MEDS ORDERED: NS IV 500 ML 500 ML IV ONE (08:30)
[2017-09-20] MEDS ORDERED: fentaNYL INJECTION 100 MCG/2 ML AMP IVP ONE (08:30)
[2017-09-20 08:41] LABS: BASOPHILS # (AUTO) 0.1 10^3/uL (0.0-0.1); BASOPHILS % (AUTO) 1 % (0-10); EOSINOPHILS # (AUTO) 0.2 10^3/uL (0.0-0.3); EOSINOPHILS % (AUTO) 2 % (0-10); HEMATOCRIT 38 % (35-52); HEMOGLOBIN 13.2 G/DL (11.5-16.0); LYMPHOCYTES # (AUTO) 1.9 X 10^3 (1.0-4.0); LYMPHOCYTES % (AUTO) 27 % (12-44); MEAN CORPUSCULAR HEMOGLOBIN 32 PG (25-34); MEAN CORPUSCULAR HGB CONC 35 G/DL (32-36); MEAN CORPUSCULAR VOLUME 90 FL (80-99); MEAN PLATELET VOLUME 10.4 FL (7.4-10.4); MONOCYTES # (AUTO) 0.7 X 10^3 (0.0-1.0); MONOCYTES % (AUTO) 9 % (0-12); NEUTROPHILS # (AUTO) 4.2 X 10^3 (1.8-7.8); NEUTROPHILS % (AUTO) 60 % (42-75); PLATELET COUNT 147 10^3/uL (130-400); RED BLOOD COUNT 4.18 10^6/uL (4.35-5.85); RED CELL DISTRIBUTION WIDTH 15.8 % (10.0-14.5)
[2017-09-20] MEDS ORDERED: raNItidine INJECTION 50 MG in NS (IVPB) 50 ML IV ONE (08:45)
[2017-09-20] MEDS ORDERED: ONDANSETRON 4 MG/2 ML (SDV) Z0FRAN IVP ONE (08:45)
[2017-09-20 08:55] LABS: INR 1.1 (0.8-1.4); PROTHROMBIN TIME PATIENT 14.4 SEC (12.2-14.7)
[2017-09-20 09:01] LABS: AMPHETAMINE SCREEN, URINE NEGATIVE (NEGATIVE); BARBITURATE SCREEN URINE NEGATIVE (NEGATIVE); BENZODIAZEPINES SCREEN URINE POSITIVE (NEGATIVE); BILIRUBIN,URINE NEGATIVE (NEGATIVE); CANNABINOID SCREEN, URINE POSITIVE (NEGATIVE); CLARITY,URINE CLEAR; COCAINE SCREEN URINE NEGATIVE (NEGATIVE); COLOR,URINE YELLOW; GLUCOSE, URINE (UA) NEGATIVE (NEGATIVE); KETONES,URINE 3+ (NEGATIVE); LEUKOCYTE ESTERASE ,URINE NEGATIVE (NEGATIVE); METHADONE STAT NEGATIVE (NEGATIVE); METHAMPHETAMINE SCREEN URINE S NEGATIVE (NEGATIVE); NITRITE,URINE NEGATIVE (NEGATIVE); OPIATE SCREEN URINE NEGATIVE (NEGATIVE); OXYCODONE STAT NEGATIVE (NEGATIVE); PH,URINE 6 (5-9); PROPOXYPHENE STAT NEGATIVE (NEGATIVE); PROTEIN,URINE NEGATIVE (NEGATIVE); TRICYCLIC ANTIDEPRESSANTS SCRE NEGATIVE (NEGATIVE); UROBILINOGEN,URINE NORMAL (NORMAL)
[2017-09-20 09:02] LABS: ALANINE AMINOTRANSFERASE 58 U/L (0-55); ALKALINE PHOSPHATASE 84 U/L (40-136); BILIRUBIN,TOTAL 1.1 MG/DL (0.1-1.0); BUN/CREATININE RATIO 8; CARBON DIOXIDE 23 MMOL/L (21-32); CHLORIDE 96 MMOL/L (98-107); GFR ESTIMATED > 60; GLUCOSE 81 MG/DL (70-105); LIPASE 22 U/L (8-78); POTASSIUM 3.4 MMOL/L (3.6-5.0); SODIUM 138 MMOL/L (135-145); TOTAL PROTEIN 8.4 GM/DL (6.4-8.2)
[2017-09-20 09:02] LABS: BACTERIA,URINE NEGATIVE /HPF; YEAST,URINE MODERATE /HPF
[2017-09-20] MEDS ORDERED: IOHEXOL 350 MG/ML 100 ML (OMNIPAQUE 350) VIAL IV ONE (09:30)
[2017-09-20] MEDS ORDERED: morphine INJ 10 MG/ML 1ML (SYR OR VIAL) IVP ONE (09:30)
[2017-09-20] MEDS ORDERED: NS 250 ML (IVPB) BAG IV ONE (09:30)
[2017-09-20] MEDS ORDERED: LACTATED RINGERS 1,000 ML IV ONE (10:10)
--- NOTE | 2017-09-20 10:57 | Diagnostic Imaging Report ---
PROCEDURE: CT abdomen and pelvis with contrast. TECHNIQUE: Multiple contiguous axial images were obtained through the abdomen and pelvis after administration of intravenous contrast. INDICATION: History of liver disease, left-sided pain. Exam compared to 01/10/2017. Fatty cirrhotic liver is a redemonstrated finding without appreciable liver mass. Sequelae of portal venous hypertension with vascular collateralization and esophageal varices unchanged. There was however no appreciable ascites. The uterus, adnexa and urinary bladder were unremarkable. There is no diverticulitis. There is no pneumatosis or free gas. There is no evidence for abscess. Kidneys are unobstructed. There is aortoiliac nonaneurysmal atherosclerosis. The pancreas normal. There is no evidence for pancreatitis. The spleen is within normal limits of size. IMPRESSION: Fatty cirrhotic liver and mild hepatomegaly with vascular collateralization presumptively owing to portal venous hypertension unchanged. No bowel, biliary or urinary tract obstruction. No substantial ascites with stable normal spleen size. No focal inflammatory process or acute abnormality is identified. Dictated by: Dictated on workstation # [id number]
[2017-09-20] MEDS ORDERED: PROMETHAZINE INJ 25 MG/ML (PHENERGAN) AMP IVP ONE (11:15)
[2017-09-20] MEDS ORDERED: PROM25TA14 PO (11:56)
[2017-09-20] MEDS ORDERED: ONDA4TAB8 SL (11:56)
[2017-09-20 12:18] VITALS: BP 141/76
== END 2017-09-20 12:18 | disposition home or self-care (01) ==
LOC: EDUNIT# 07:53 → ER 07:55
DX: K70.30 Alcoholic cirrhosis of liver without ascites (principal); F10.20 Alcohol dependence, uncomplicated; J44.9 Chronic obstructive pulmonary disease, unspecified; I10 Essential (primary) hypertension; F90.9 Attention-deficit hyperactivity disorder, unspecified type; F41.9 Anxiety disorder, unspecified; K21.9 Gastro-esophageal reflux disease without esophagitis; B19.20 Unspecified viral hepatitis C without hepatic coma; F12.10 Cannabis abuse, uncomplicated; F17.210 Nicotine dependence, cigarettes, uncomplicated; Z90.89 Acquired absence of other organs; Z88.5 Allergy status to narcotic agent; Z79.51 Long term (current) use of inhaled steroids; Z91.19 Patient's noncompliance with other medical treatment and regimen; Z80.0 Family history of malignant neoplasm of digestive organs; Z82.49 Family history of ischemic heart disease and other diseases of the circulatory system; Z87.442 Personal history of urinary calculi; Z87.19 Personal history of other diseases of the digestive system
CPT/HCPCS: 36415; 74177; 80053; 80306; 80320; 81000; 83690; 85025; 85610; 85730; 96361; 96374; 96375

== ENCOUNTER 2018-04-23 09:47 | Emergency (ER) | payer MEDICARE, MEDICAID ==
[~2018-04-23] VITALS: Ht 160 cm; Wt 62.6 kg
[~2018-04-23 09:47] MED LIST changes: -AMLO10TA2 PO; +AMLO10TA6 PO; +FAMO20TA3 PO; +ONDA4TAB8 SL
--- NOTE | 2018-04-23 11:33 | ED Fall/Injury ---
General Chief Complaint: Trauma-Non Activation Stated Complaint: BACK PAIN,LT SHOULDER PAIN,FALL Nursing Triage Note: pt presents to ed with complaints of lower back, l hip, and l shoulder pain since fall/slipping on ice while carrying her trashh can back up her drive way at 2100 yesterday. pt denies hitting head or loc. Source: patient Exam Limitations: no limitations History of Present Illness Date Seen by Provider: Apr 23, 2018 Time Seen by Provider: 11:17 Initial Comments 53-year-old female patient presents to the emergency department with complaints of left hip pain, left shoulder pain, and no back pain after slipping last night on the ice while taking the trash out at home. Denies hitting her head, loss of consciousness, neck pain, dizziness, changes in vision. Denies bowel or bladder incontinence. Patient does report a history of chronic low back pain. Denies taking anything for pain at home. Also reports a mild cough, slight sore throat, and malaise. Patient and she may have had a fever last night, but denies any current fever. Location Injury Occurred: home residence Occurred: yesterday (2099) Severity: moderate Injuries/Pain Location: upper extremity (left shoulder), back, pelvis, lower extremity (left hip) Context: slipped Loss of Consciousness: no loss of consciousness Modifying Factors: Worse With Movement Allergies and Home Medications Allergies Coded Allergies: codeine (Verified Allergy, Unknown, 10/07/16) Home Medications Albuterol Sulfate 18 Gm Hfa.aer.ad, 2 PUFF IH Q4H PRN for SHORTNESS OF BREATH, ( Reported) Alprazolam 0.5 Mg Tablet, 0.5 MG PO HS PRN for ANXIETY, (Reported) Amlodipine Besylate 10 Mg Tablet, 10 MG PO DAILY, (Reported) Cyclobenzaprine HCl 10 Mg Tablet, 10 MG PO BID, (Reported) Cyclobenzaprine HCl 10 Mg Tablet, 10 MG PO Q8H PRN for pain Prescribed by: MARTIN HOLLINGSWORTH on 04/23/18 1322 Famotidine 20 Mg Tablet, 20 MG PO BID Prescribed by: GOLD DILLARD on 12/19/17 1057 Fluticasone/Salmeterol 1 Each Blst.w.dev, 1 PUFF INH BID, (Reported) Gabapentin 300 Mg Capsule, 600 MG PO HS, (Reported) TAKES 2 (300MG) CAPSULES Ondansetron 4 Mg Tab.rapdis, 4 MG PO Q6H PRN for NAUSEA/VOMITING-1ST LINE, ( Reported) Ondansetron 8 Mg Tab.rapdis, 8 MG PO Q6H PRN for NAUSEA/VOMITING-1ST LINE Prescribed by: MARTIN HOLLINGSWORTH on 03/27/17 1238 Ondansetron 4 Mg Tab.rapdis, 4 MG SL Q4H PRN for NAUSEA/VOMITING-1ST LINE Prescribed by: GOLD DILLARD on 09/20/17 1156 Pantoprazole Sodium 40 Mg Tablet.dr, 40 MG PO DAILY, (Reported) Pantoprazole Sodium 40 Mg Tablet.dr, 40 MG PO BID Prescribed by: MARTIN HOLLINGSWORTH on 03/27/17 1238 Pantoprazole Sodium 40 Mg Tablet.dr, 40 MG PO DAILY Prescribed by: GOLD DILLARD on 12/19/17 1057 Promethazine HCl 25 Mg Tablet, 25 MG PO Q8H PRN for NAUSEA/VOMITING-2ND LINE Prescribed by: GOLD DILLARD on 09/20/17 1156 Sucralfate 1 Gm Tablet, 2 GM PO BID, (Reported) TAKES 2 (1 GM) TABLETS Sucralfate 1 Gm/10 Ml Oral.susp, 1 GM PO ACHS Prescribed by: MARTIN HOLLINGSWORTH on 03/27/17 1238 Tramadol HCl 50 Mg Tablet, 50 MG PO BID PRN for PAIN-MILD, (Reported) Patient Home Medication List Home Medication List Reviewed: Yes Review of Systems Review of Systems Constitutional: see HPI, chills; No fever (denies current fever. (+) subjective fever.); malaise Eyes: No Symptoms Reported Ears, Nose, Mouth, Throat: denies ear pain, denies ear discharge, denies mouth swelling; throat pain; denies throat swelling Respiratory: see HPI, cough; No dyspnea on exertion, No phlegm, No short of breath, No stridor, No wheezing Cardiovascular: no symptoms reported Gastrointestinal: no symptoms reported; No other (denies bowel incontinence) Genitourinary: no symptoms reported; No incontinence Musculoskeletal: see HPI, back pain, joint pain (left hip and left shoulder); No joint swelling, No neck pain Skin: No change in color, No lumps Psychiatric/Neurological: Denies Headache, Denies Numbness, Denies Paresthesia , Denies Seizure, Denies Tingling, Denies Weakness All Other Systems Reviewed Negative Unless Noted: Yes (Negative excepted noted.) Past Vrgywfy-Xmabec-Tmgtjr Hx Past Med/Social Hx: Reviewed Nursing Past Med/Soc Hx Patient Social History Alcohol Use: Denies Use Number of Drinks Today: AA Alcohol Beverage of Choice: Beer Recreational Drug Use: Yes (PRESENT AND PAST IV DRUG, SMOKING THC, ALCOHOL, NARCOTICS) Drug of Choice: MARIJUANA Smoking Status: Current Everyday Smoker Type Used: Cigarettes 2nd Hand Smoke Exposure: Yes Recent Foreign Travel: No Contact w/Someone Who Travel: No Recent Infectious Disease Expo: No Recent Hopitalizations: Yes Immunizations Up To Date Tetanus Booster (TDap): More than 5yrs PED Vaccines UTD: No Date of Pneumonia Vaccine: Jul 22, 2008 Date of Influenza Vaccine: Jan 17, 2016 Seasonal Allergies Seasonal Allergies: Yes Past Medical History Surgeries: Yes (back) Abdominal, Adenoidectomy, Orthopedic, Tonsillectomy Respiratory: Yes Asthma, COPD Currently Using CPAP: No Currently Using BIPAP: No Cardiac: Yes Heart Murmur, Hypertension Neurological: Yes 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 Disorders: Yes 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 Sexually Transmitted Disease: No HIV/AIDS: No Genitourinary: No Kidney Stones Gastrointestinal: Yes (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; ALCOHOLIC GASTRITIS) Gastroesophageal Reflux, Liver Disease/Jaundice, Gastrointestinal Bleed, Esophageal Varices, Hepatitis, Cirrhosis Musculoskeletal: Yes Arthritis, Fibromyalgia, Chronic Back Pain Endocrine: No HEENT: No Cancer: No Psychosocial: Yes ADD/ADHD, Anxiety Integumentary: No Blood Disorders: No Adverse Reaction/Blood Tranf: No Family Medical History Reviewed Nursing Family Hx Alcoholism G8 SISTER Cardiovascular disease 19 FATHER Colon cancer G8 BROTHER Diabetes mellitus G8 BROTHER Drug abuse G8 SISTER FH: cancer 19 MOTHER (BRAIN) G8 BROTHER Glaucoma 19 FATHER Hypertension 19 FATHER Myocardial infarction 19 FATHER Psychosocial problem 19 FATHER G8 BROTHER G8 SISTER No Family History of: AIDS Abdominal aortic aneurysm Alzheimer's disease Arthritis Asthma Completed stroke Parkinson's disease Respiratory disorder Seizure disorder Severe allergy Thyroid disease No Pertinent Family Hx Physical Exam Vital Signs Vital Signs - First Documented 04/23/18 10:12 Temp 98.6 Pulse 91 Resp 20 B/P (MAP) 134/68 (90) Pulse Ox 98 Capillary Refill : Less Than 3 Seconds Height, Weight, BMI Height: 5'3.00" Weight: 138lbs. 4.0oz. 62.061813up; 23.4 BMI Method:Stated General Appearance: WD/WN, no apparent distress HEENT: PERRL/EOMI, normal ENT inspection, TMs normal, pharyngeal erythema, other (normocephalic, atraumatic.) Neck: non-tender, full range of motion, supple, normal inspection Cardiovascular: normal peripheral pulses, regular rate, rhythm, no edema, no murmur Respiratory: lungs clear, normal breath sounds, no respiratory distress, no accessory muscle use Peripheral Pulses: 2+ Dorsalis Pedis (R), 2+ Left Dors-Pedis (L), 2+ Radial Pulses (R), 2+ Radial Pulses (L) Gastrointestinal: normal bowel sounds, non tender, soft Back: normal inspection; No decreased range of motion; muscle spasm (bilateral paraspinous muscles), vertebral tenderness (sacral TTP without deformity or stepoff.) Extremities: normal range of motion, normal inspection, no pedal edema, no calf tenderness, normal capillary refill, other (left shoulder bony tenderness without ecchymosis, deformity, or swelling. left buttock and lateral hip tenderness without swelling, deformity or ecchymosis. left thigh, left knee, left distal leg, left ankle, and left foot nedgative. 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, no motor/sensory deficits, alert, normal mood/affect, oriented x 3 Skin: normal color, warm/dry; No ecchymosis (no evidence of trauma) Wiliam Coma Score Best Eye Response: (4) Open Spontaneously Best Verbal Response: (5) Oriented Best Motor Response: (6) Obeys Commands Wiliam Total: 15 Progress/Results/Core Measures Results/Orders Micro Results Microbiology 04/23/18 Influenza Types A,B Antigen (FREDO) - Final, Complete My Orders Orders - MARTIN HOLLINGSWORTH Influenza A And B Antigens (04/23/18 11:33) Shoulder, Left, 3 Views (04/23/18 11:33) Sacrum And Coccyx (04/23/18 11:33) Pelvis With Left Hip 2-3 Views (04/23/18 11:33) Tramadol Tablet (Ultram Tablet) (04/23/18 11:56) Orphenadrine Injection (Norflex Injectio (04/23/18 13:17) Tramadol Tablet (Ultram Tablet) (04/23/18 13:17) Vital Signs/I&O 04/23/18 10:12 Temp 98.6 Pulse 91 Resp 20 B/P (MAP) 134/68 (90) Pulse Ox 98 Blood Pressure Mean: 90 Diagnostic Imaging Diagonstic Imaging: Xray Plain Films/CT/US/NM/MRI: other (left shoulder) Comments SHOULDER, LEFT, 3 VIEWS PATIENT HISTORY: Fall, left shoulder pain. TECHNIQUE: Three views of the left shoulder. COMPARISON: None. FINDINGS: No acute fracture or dislocation is seen in the left shoulder. Alignment is normal. There is mild degenerative change in the glenohumeral and acromioclavicular joints. IMPRESSION : Mild degenerative changes in the left shoulder with no acute osseous abnormalities seen. Dictated by: Dictated on workstation # [id number] Reviewed: Reviewed by Me (radiology report reviewed by me) Diagonstic Imaging: Xray Plain Films/CT/US/NM/MRI: pelvis, hip (left) Comments PELVIS WITH LEFT HIP 2-3 VIEWS PATIENT HISTORY: Fall, left hip and tailbone pain. TECHNIQUE: Frontal view of the pelvis. Frontal and lateral views of the left hip. COMPARISON: CT from 09/20/2017. FINDINGS: No acute fracture is seen in the pelvis or the left hip. Alignment appears normal. The femoral heads are well seated in the acetabula bilaterally. Multiple phleboliths are noted. The bilateral sacroiliac joints are patent. IMPRESSION: No acute osseous abnormality is seen in the pelvis or the left hip. Dictated by: Dictated on workstation # [id number] Reviewed: Reviewed by Me (radiology report reviewed by me) Diagonstic Imaging: Xray Plain Films/CT/US/NM/MRI: other (coccyx and sacrum) Comments SACRUM AND COCCYX PATIENT HISTORY: Fall, pain in the tailbone. TECHNIQUE: 3 views of the sacrum/coccyx COMPARISON: 09/20/2017 FINDINGS: The bilateral sacroiliac joints are patent. There are degenerative changes at L5-S1. There is mild anterior angulation of the coccyx and degenerative change with no cortical step-off seen and alignment appears unchanged compared to August 2017. IMPRESSION: 1. No acute osseous abnormalities seen in the sacrum/coccyx. 2. Advanced degenerative changes at L5-S1. Dictated by: Dictated on workstation # [id number] Reviewed: Reviewed by Me (radiology report reviewed by me) Departure Communication (Admissions) Patient seen and evaluated. X-ray of the coccyx, pelvis, left hip, and left shoulder pain. Patient now reporting she had taken too tramadol earlier this morning at 0400 and 0800. Denies improvement and pain. We Will give patient 2 tramadol po and Norflex 60 mg IM 1 dose. Diagnostic findings discussed with the patient. Plan for discharge to home. Patient to f/u with her pcp for recheck this week. Impression Primary Impression: Contusion of left hip, initial encounter Additional Impressions: Contusion of coccyx Qualified Codes: S30.0XXA - Contusion of lower back and pelvis, initial encounter Viral upper respiratory illness Disposition: HOME, SELF-CARE Condition: Improved Departure-Patient Inst. Decision time for Depature: 13:20 Referrals: RINKU MANDEL DO (PCP/Family) Primary Care Physician Patient Instructions: Contusion (DC), Viral Upper Respiratory Infection, Adult (DC) Add. Discharge Instructions: All discharge instructions reviewed with patient and/or family. Voiced understanding. Medications as instructed. Continue usual home medications. You may use an ice pack or heating pads as needed for pain. Follow-up with your family practitioner this week for recheck, call for appointment time tomorrow morning. Return to the emergency department for worsened symptoms, shortness of breath, fever, dizziness, numbness, weakness, bowel incontinence, bladder incontinence, or any other concerns. Scripts Cyclobenzaprine HCl (Cyclobenzaprine HCl) 10 Mg Tablet 10 MG PO Q8H PRN for pain, #10 TAB 0 Refills Prov: MARTIN HOLLINGSWORTH 04/23/18 MARTIN HOLLINGSWORTH Apr 23, 2018 11:33
--- NOTE | 2018-04-23 12:55 | Diagnostic Imaging Report ---
PATIENT HISTORY: Fall, left shoulder pain. TECHNIQUE: Three views of the left shoulder. COMPARISON: None. FINDINGS: No acute fracture or dislocation is seen in the left shoulder. Alignment is normal. There is mild degenerative change in the glenohumeral and acromioclavicular joints. IMPRESSION: Mild degenerative changes in the left shoulder with no acute osseous abnormalities seen. Dictated by: Dictated on workstation # [id number]
--- NOTE | 2018-04-23 12:56 | Diagnostic Imaging Report ---
PATIENT HISTORY: Fall, pain in the tailbone. TECHNIQUE: 3 views of the sacrum/coccyx COMPARISON: 09/20/2017 FINDINGS: The bilateral sacroiliac joints are patent. There are degenerative changes at L5-S1. There is mild anterior angulation of the coccyx and degenerative change with no cortical step-off seen and alignment appears unchanged compared to August 2017. IMPRESSION: 1. No acute osseous abnormalities seen in the sacrum/coccyx. 2. Advanced degenerative changes at L5-S1. Dictated by: Dictated on workstation # [id number]
--- NOTE | 2018-04-23 12:59 | Diagnostic Imaging Report ---
PATIENT HISTORY: Fall, left hip and tailbone pain. TECHNIQUE: Frontal view of the pelvis. Frontal and lateral views of the left hip. COMPARISON: CT from 09/20/2017. FINDINGS: No acute fracture is seen in the pelvis or the left hip. Alignment appears normal. The femoral heads are well seated in the acetabula bilaterally. Multiple phleboliths are noted. The bilateral sacroiliac joints are patent. IMPRESSION: No acute osseous abnormality is seen in the pelvis or the left hip. Dictated by: Dictated on workstation # [id number]
[2018-04-23] MEDS ORDERED: ORPHENADRINE 60 MG/2 ML (NORFLEX) AMP IM STA (13:17)
[2018-04-23] MEDS ORDERED: CYCL10TA9 PO (13:22)
[2018-04-23 13:30] VITALS: BP 134/68
== END 2018-04-23 13:37 | disposition home or self-care (01) ==
LOC: EDUNIT# 09:47 → ER 09:48
DX: S70.12XA Contusion of left thigh, initial encounter (principal); S30.0XXA Contusion of lower back and pelvis, initial encounter; J06.9 Acute upper respiratory infection, unspecified; J44.9 Chronic obstructive pulmonary disease, unspecified; F90.9 Attention-deficit hyperactivity disorder, unspecified type; F98.8 Other specified behavioral and emotional disorders with onset usually occurring in childhood and adolescence; F41.9 Anxiety disorder, unspecified; K21.9 Gastro-esophageal reflux disease without esophagitis; I10 Essential (primary) hypertension; R40.2142 Coma scale, eyes open, spontaneous, at arrival to emergency department; R40.2252 Coma scale, best verbal response, oriented, at arrival to emergency department; R40.2362 Coma scale, best motor response, obeys commands, at arrival to emergency department; B19.20 Unspecified viral hepatitis C without hepatic coma; F12.10 Cannabis abuse, uncomplicated; F17.210 Nicotine dependence, cigarettes, uncomplicated; Z82.49 Family history of ischemic heart disease and other diseases of the circulatory system; Z80.0 Family history of malignant neoplasm of digestive organs; Z80.8 Family history of malignant neoplasm of other organs or systems; Z87.19 Personal history of other diseases of the digestive system; Z87.442 Personal history of urinary calculi; Z88.5 Allergy status to narcotic agent; Z79.51 Long term (current) use of inhaled steroids; Z90.89 Acquired absence of other organs; W00.0XXA Fall on same level due to ice and snow, initial encounter; Y92.009 Unspecified place in unspecified non-institutional (private) residence as the place of occurrence of the external cause
CPT/HCPCS: 72220; 73030; 87804

== ENCOUNTER 2018-05-15 08:29 | Emergency (ER) | payer MEDICARE, MEDICAID ==
[~2018-05-15] VITALS: Ht 160 cm; Wt 59.9 kg
[~2018-05-15 08:29] MED LIST changes: -AMLO10TA6 PO; +AMLO10TA7 PO
[2018-05-15] MEDS ORDERED: fentaNYL INJECTION 100 MCG/2 ML AMP IVP STA (10:03)
[2018-05-15] MEDS ORDERED: ONDANSETRON 4 MG/2 ML (SDV) Z0FRAN IVP ONE (10:15)
[2018-05-15 10:23] LABS: BASOPHILS % (AUTO) 1 % (0-10); EOSINOPHILS # (AUTO) 0.1 10^3/uL (0.0-0.3); EOSINOPHILS % (AUTO) 2 % (0-10); HEMATOCRIT 40 % (35-52); HEMOGLOBIN 13.2 G/DL (11.5-16.0); LYMPHOCYTES # (AUTO) 1.4 X 10^3 (1.0-4.0); LYMPHOCYTES % (AUTO) 25 % (12-44); MEAN CORPUSCULAR HEMOGLOBIN 30 PG (25-34); MEAN CORPUSCULAR HGB CONC 33 G/DL (32-36); MEAN CORPUSCULAR VOLUME 89 FL (80-99); MEAN PLATELET VOLUME 10.6 FL (7.4-10.4); MONOCYTES # (AUTO) 0.5 X 10^3 (0.0-1.0); MONOCYTES % (AUTO) 9 % (0-12); NEUTROPHILS # (AUTO) 3.7 X 10^3 (1.8-7.8); NEUTROPHILS % (AUTO) 64 % (42-75); PLATELET COUNT 147 10^3/uL (130-400); RED BLOOD COUNT 4.45 10^6/uL (4.35-5.85); RED CELL DISTRIBUTION WIDTH 15.7 % (10.0-14.5); WHITE BLOOD COUNT 5.7 10^3/uL (4.3-11.0)
[2018-05-15 10:27] LABS: BILIRUBIN,URINE NEGATIVE (NEGATIVE); CLARITY,URINE CLEAR; COLOR,URINE YELLOW; GLUCOSE, URINE (UA) NEGATIVE (NEGATIVE); KETONES,URINE 3+ (NEGATIVE); LEUKOCYTE ESTERASE ,URINE NEGATIVE (NEGATIVE); NITRITE,URINE NEGATIVE (NEGATIVE); PH,URINE 7 (5-9); PROTEIN,URINE NEGATIVE (NEGATIVE); UROBILINOGEN,URINE NORMAL (NORMAL)
--- NOTE | 2018-05-15 10:28 | NUR ---
WHILE IN ROOM TO GIVE PAIN MEDS PATIENT STATES WOULD RATHER HAVE MORPHINE MYCHAL HAS HAD ISSUES WITH [facility] NOTIFIED
[2018-05-15] MEDS ORDERED: morphine INJ 10 MG/ML 1ML (SYR OR VIAL) IVP STA (10:31)
[2018-05-15 10:42] LABS: ALANINE AMINOTRANSFERASE 35 U/L (0-55); ALBUMIN 4.1 GM/DL (3.2-4.5); ALKALINE PHOSPHATASE 90 U/L (40-136); BILIRUBIN,TOTAL 1.1 MG/DL (0.1-1.0); BUN/CREATININE RATIO 11; CALCIUM 9.5 MG/DL (8.5-10.1); CARBON DIOXIDE 27 MMOL/L (21-32); CHLORIDE 97 MMOL/L (98-107); CREATININE SERUM 0.65 MG/DL (0.60-1.30); GFR ESTIMATED > 60; GLUCOSE 101 MG/DL (70-105); POTASSIUM 3.8 MMOL/L (3.6-5.0); SODIUM 136 MMOL/L (135-145); TOTAL PROTEIN 8.7 GM/DL (6.4-8.2)
[2018-05-15 10:46] LABS: BACTERIA,URINE TRACE /HPF; GRANULAR CASTS,URINE RARE /LPF; HYALINE CASTS, URINE RARE /LPF; WBC,URINE 0-2 /HPF; YEAST,URINE MODERATE /HPF
[2018-05-15] MEDS ORDERED: NS IV 1000 ML 1,000 ML IV ONE (10:48)
--- NOTE | 2018-05-15 10:54 | ED General ---
General Chief Complaint: General Problems/Pain Stated Complaint: N/V;BACK PAIN Nursing Triage Note: AMB TO ED REPORTS THAT BACK PAIN FOR SEVERAL DAY WITH VOMITING Nursing Sepsis Screen: No Definite Risk Source of Information: Patient Exam Limitations: No Limitations History of Present Illness Date Seen by Provider: May 15, 2018 Time Seen by Provider: 09:59 Initial Comments Here with report of vomiting for 2 days and that pain associated with that due to vomiting. She states the vomiting through her back out. Has intermittent periods of vomiting. This is not a new thing for her. Does have significant liver disease and is currently under evaluation for that. Follows with Dr. Mandel and has appointment with him on Sunday. Her biggest concern was her back pain currently but is also concerned about dehydration. Timing/Duration: 2-3 Days Severity: Moderate Modifying Factors: worse with Eating Associated Systoms: No Chest Pain, No Fever/Chills, No Headaches; Nausea/ Vomiting; No Shortness of Air; Weakness Allergies and Home Medications Allergies Coded Allergies: codeine (Verified Allergy, Unknown, 10/07/16) fentanyl (Verified Adverse Reaction, Unknown, PATIENT REQUEST NOT TO HAVE IT , 05/15/18) Home Medications Albuterol Sulfate 18 Gm Hfa.aer.ad, 2 PUFF IH Q4H PRN for SHORTNESS OF BREATH, ( Reported) Alprazolam 0.5 Mg Tablet, 0.5 MG PO HS PRN for ANXIETY, (Reported) Amlodipine Besylate 10 Mg Tablet, 10 MG PO DAILY, (Reported) Cyclobenzaprine HCl 10 Mg Tablet, 10 MG PO BID, (Reported) Cyclobenzaprine HCl 10 Mg Tablet, 10 MG PO Q8H PRN for pain Prescribed by: MARTIN HOLLINGSWORTH on 04/23/18 1322 Fluticasone/Salmeterol 1 Each Blst.w.dev, 1 PUFF INH BID, (Reported) Gabapentin 300 Mg Capsule, 600 MG PO HS, (Reported) TAKES 2 (300MG) CAPSULES Ondansetron 4 Mg Tab.rapdis, 4 MG PO Q6H PRN for NAUSEA/VOMITING-1ST LINE, ( Reported) Ondansetron 8 Mg Tab.rapdis, 8 MG PO Q6H PRN for NAUSEA/VOMITING-1ST LINE Prescribed by: MARTIN HOLLINGSWORTH on 03/27/17 1238 Ondansetron 4 Mg Tab.rapdis, 4 MG SL Q4H PRN for NAUSEA/VOMITING-1ST LINE Prescribed by: GOLD DILLARD on 09/20/17 1156 Pantoprazole Sodium 40 Mg Tablet.dr, 40 MG PO DAILY, (Reported) Pantoprazole Sodium 40 Mg Tablet.dr, 40 MG PO BID Prescribed by: MARTIN HOLLINGSWORTH on 03/27/17 1238 Pantoprazole Sodium 40 Mg Tablet.dr, 40 MG PO DAILY Prescribed by: GOLD DILLARD on 12/19/17 1057 Promethazine HCl 25 Mg Tablet, 25 MG PO Q8H PRN for NAUSEA/VOMITING-2ND LINE Prescribed by: GOLD DILLARD on 09/20/17 1156 Sucralfate 1 Gm Tablet, 2 GM PO BID, (Reported) TAKES 2 (1 GM) TABLETS Sucralfate 1 Gm/10 Ml Oral.susp, 1 GM PO ACHS Prescribed by: MARTIN HOLLINGSWORTH on 03/27/17 1238 Tramadol HCl 50 Mg Tablet, 50 MG PO BID PRN for PAIN-MILD, (Reported) Patient Home Medication List Home Medication List Reviewed: Yes Review of Systems Review of Systems Constitutional: see HPI; No chills, No fever EENTM: no symptoms reported Respiratory: no symptoms reported Cardiovascular: No chest pain, No edema Gastrointestinal: No abdominal pain; nausea, vomiting Genitourinary: No dysuria, No pain Musculoskeletal: back pain, muscle pain; No neck pain Skin: no symptoms reported Psychiatric/Neurological: No Symptoms Reported All Other Systems Reviewed Negative Unless Noted: Yes Past Uuxxmfy-Kqlzcs-Jkdhsh Hx Past Med/Social Hx: Reviewed Nursing Past Med/Soc Hx Patient Social History Alcohol Use: Occasionally Uses Number of Drinks Today: AA Alcohol Beverage of Choice: Beer Recreational Drug Use: Yes (PRESENT AND PAST IV DRUG, SMOKING THC, ALCOHOL, NARCOTICS) Drug of Choice: MARIJUANA Smoking Status: Current Everyday Smoker Type Used: Cigarettes 2nd Hand Smoke Exposure: Yes Recent Foreign Travel: No Contact w/Someone Who Travel: No Recent Infectious Disease Expo: No Recent Hopitalizations: Yes Immunizations Up To Date Tetanus Booster (TDap): More than 5yrs PED Vaccines UTD: No Date of Pneumonia Vaccine: Jul 22, 2008 Date of Influenza Vaccine: Jan 17, 2016 Seasonal Allergies Seasonal Allergies: Yes Past Medical History Surgeries: Yes (back) Abdominal, Adenoidectomy, Orthopedic, Tonsillectomy Respiratory: Yes Asthma, COPD Currently Using CPAP: No Currently Using BIPAP: No Cardiac: Yes Heart Murmur, Hypertension Neurological: Yes 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 Disorders: Yes 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 Disorders: Denies ORE CRUSHER History: Menopausal Sexually Transmitted Disease: No HIV/AIDS: No Genitourinary: No Kidney Stones Gastrointestinal: Yes (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; ALCOHOLIC GASTRITIS) Gastroesophageal Reflux, Liver Disease/Jaundice, Gastrointestinal Bleed, Esophageal Varices, Hepatitis, Cirrhosis Musculoskeletal: Yes Arthritis, Fibromyalgia, Chronic Back Pain Endocrine: No HEENT: No Cancer: No Psychosocial: Yes ADD/ADHD, Anxiety Integumentary: No Blood Disorders: No Adverse Reaction/Blood Tranf: No Family Medical History Reviewed Nursing Family Hx Alcoholism G8 SISTER Cardiovascular disease 19 FATHER Colon cancer G8 BROTHER Diabetes mellitus G8 BROTHER Drug abuse G8 SISTER FH: cancer 19 MOTHER (BRAIN) G8 BROTHER Glaucoma 19 FATHER Hypertension 19 FATHER Myocardial infarction 19 FATHER Psychosocial problem 19 FATHER G8 BROTHER G8 SISTER No Family History of: AIDS Abdominal aortic aneurysm Alzheimer's disease Arthritis Asthma Completed stroke Parkinson's disease Respiratory disorder Seizure disorder Severe allergy Thyroid disease No Pertinent Family Hx Physical Exam Vital Signs Vital Signs - First Documented 05/15/18 08:35 Temp 97.0 Pulse 95 Resp 18 B/P (MAP) 143/95 (111) O2 Delivery Room Air Capillary Refill : Less Than 3 Seconds Height, Weight, BMI Height: 5'3.00" Weight: 132lbs. 4.0oz. [id number]; 23.4 BMI Method:Stated General Appearance: No Apparent Distress, WD/WN HEENT: PERRL/EOMI, Pharynx Normal Neck: Non Tender, Supple Respiratory: Lungs Clear, Normal Breath Sounds Cardiovascular: Regular Rate, Rhythm, No Murmur Gastrointestinal: Non Tender, Soft Back: Normal Inspection, No CVA Tenderness, No Vertebral Tenderness, Muscle Spasm; No Vertebral Tenderness; Other (pain to the right low back in the region of the SI joint.) Extremity: Normal Range of Motion, Non Tender Neurologic/Psychiatric: Alert, Oriented x3 Skin: Normal Color, Warm/Dry Progress/Results/Core Measures Suspected Sepsis Recent Fever Within 48 Hours: No Infection Criteria Present: None New/Unexplained Altered Menta: No Sepsis Screen: No Definite Risk SIRS Temperature:97.0 Pulse: 95 Respiratory Rate: 18 Laboratory Tests 05/15/18 10:17: White Blood Count 5.7 Blood Pressure 143 /95 Mean: 111 Laboratory Tests 05/15/18 10:17: Creatinine 0.65, Platelet Count 147, Total Bilirubin 1.1H Results/Orders Lab Results Laboratory Tests Test 05/15/18 10:17 Range/Units White Blood Count 5.7 4.3-11.0 10^3/uL Red Blood Count 4.45 4.35-5.85 10^6/uL Hemoglobin 13.2 11.5-16.0 G/DL Hematocrit 40 35-52 % Mean Corpuscular Volume 89 80-99 FL Mean Corpuscular Hemoglobin 30 25-34 PG Mean Corpuscular Hemoglobin Concent 33 32-36 G/DL Red Cell Distribution Width 15.7 H 10.0-14.5 % Platelet Count 147 130-400 10^3/uL Mean Platelet Volume 10.6 H 7.4-10.4 FL Neutrophils (%) (Auto) 64 42-75 % Lymphocytes (%) (Auto) 25 12-44 % Monocytes (%) (Auto) 9 0-12 % Eosinophils (%) (Auto) 2 0-10 % Basophils (%) (Auto) 1 0-10 % Neutrophils # (Auto) 3.7 1.8-7.8 X 10^3 Lymphocytes # (Auto) 1.4 1.0-4.0 X 10^3 Monocytes # (Auto) 0.5 0.0-1.0 X 10^3 Eosinophils # (Auto) 0.1 0.0-0.3 10^3/uL Basophils # (Auto) 0.0 0.0-0.1 10^3/uL Urine Color YELLOW Urine Clarity CLEAR Urine pH 7 5-9 Urine Specific [place] 1.010 L 1.016-1.022 Urine Protein NEGATIVE NEGATIVE Urine Glucose (UA) NEGATIVE NEGATIVE Urine Ketones 3+ H NEGATIVE Urine Nitrite NEGATIVE NEGATIVE Urine Bilirubin NEGATIVE NEGATIVE Urine Urobilinogen NORMAL NORMAL MG/DL Urine Leukocyte Esterase NEGATIVE NEGATIVE Urine RBC (Auto) NEGATIVE NEGATIVE Urine RBC NONE /HPF Urine WBC 0-2 /HPF Urine Squamous Epithelial Cells 10-25 H /HPF Urine Renal Epithelial Cells NONE /HPF Urine Crystals NONE /LPF Urine Bacteria TRACE /HPF Urine Casts PRESENT /LPF Urine Hyaline Casts RARE /LPF Urine Granular Casts RARE /LPF Urine Mucus MODERATE H /LPF Urine Yeast MODERATE H /HPF Urine Culture Indicated NO Sodium Level 136 135-145 MMOL/L Potassium Level 3.8 3.6-5.0 MMOL/L Chloride Level 97 L 98-107 MMOL/L Carbon Dioxide Level 27 21-32 MMOL/L Anion Gap 12 5-14 MMOL/L Blood Urea Nitrogen 7 7-18 MG/DL Creatinine 0.65 0.60-1.30 MG/DL Estimat Glomerular Filtration Rate > 60 BUN/Creatinine Ratio 11 Glucose Level 101 70-105 MG/DL Calcium Level 9.5 8.5-10.1 MG/DL Corrected Calcium 9.4 8.5-10.1 MG/DL Total Bilirubin 1.1 H 0.1-1.0 MG/DL Aspartate Amino Transf (AST/SGOT) 71 H 5-34 U/L Alanine Aminotransferase (ALT/SGPT) 35 0-55 U/L Alkaline Phosphatase 90 40-136 U/L Total Protein 8.7 H 6.4-8.2 GM/DL Albumin 4.1 3.2-4.5 GM/DL My Orders Orders - AROLDO MERCADO MD Cbc With Automated Diff (05/15/18 10:03) Comprehensive Metabolic Panel (05/15/18 10:03) Ua Culture If Indicated (05/15/18 10:03) Ondansetron Injection (Zofran Injectio (05/15/18 10:15) Saline Lock/Iv-Start (05/15/18 10:03) Fentanyl Injection (Sublimaze Injection (05/15/18 10:03) Morphine Injection (Morphine Injection (05/15/18 10:31) Ns Iv 1000 Ml (Sodium Chloride 0.9%) (05/15/18 10:48) Medications Given in ED Current Medications Medications Dose Ordered Sig/Pino Route Start Time Stop Time Status Last Admin Dose Admin Ondansetron HCl 4 mg ONCE ONCE IVP 05/15/18 10:15 05/15/18 10:16 DC 05/15/18 10:23 4 MG Sodium Chloride 1,000 ml @ 0 mls/hr Q0M ONCE IV 05/15/18 10:48 05/15/18 10:49 DC 05/15/18 10:56 1,000 MLS/HR Vital Signs/I&O 05/15/18 08:35 Temp 97.0 Pulse 95 Resp 18 B/P (MAP) 143/95 (111) O2 Delivery Room Air Capillary Refill : Less Than 3 Seconds Blood Pressure Mean: 111 Progress Note : Progress Note Seen and evaluated. IV, labs and UA ordered. Normal saline 1 L bolus, Zofran 4 mg IV and fentanyl 50 g IV. Patient refuses fentanyl she says it makes her feel bad. She is requesting morphine. Morphine 5 mg IV ordered. I did discuss with her about outpatient scripts and the fact that she will have to get further prescriptions from her doctor. She states that she has tramadol at home and does have a doctor's appointment with her doctor on Sunday. Monitor patient. 1126: Overall improved. No other significant findings except for probable dehydration. She has Zofran, tramadol and Phenergan at home. Discharged home with return precautions. Patient verbalize understanding instructions and agreement with plan. Departure Impression Primary Impression: Dehydration Additional Impression: Nausea and vomiting Qualified Codes: R11.2 - Nausea with vomiting, unspecified Disposition: HOME, SELF-CARE Condition: Improved Departure-Patient Inst. Decision time for Depature: 11:29 Referrals: RINKU MANDEL DO (PCP/Family) Primary Care Physician Patient Instructions: Dehydration, Adult (DC), Nausea and Vomiting, Adult (DC) Add. Discharge Instructions: All discharge instructions reviewed with patient and/or family. Voiced understanding. Clear liquid diet for the next 24 hours and then advance as tolerated. Take medications as previously prescribed. Follow-up with your doctor on Sunday as scheduled. Return for worse pain, fever, vomiting, weakness, breathing problems or other concerns as needed. AROLDO MERCADO MD May 15, 2018 10:54
[2018-05-15 12:11] VITALS: BP 160/81
--- NOTE | 2018-05-15 12:11 | NUR ---
ON DISCHARGE REQUEST MORE PAIN MEDS SO SHE COULD TO HOME AND SLEEP TALKED WITH DR SALDIVAR PATIENT TO GO HOME AND TAKE HER PAIN MEDS AT HOME VOICED UNDERSTANDING.
== END 2018-05-15 12:10 | disposition home or self-care (01) ==
LOC: EDUNIT# 08:29 → ER 08:30
DX: E86.0 Dehydration (principal); R11.2 Nausea with vomiting, unspecified; J44.9 Chronic obstructive pulmonary disease, unspecified; I10 Essential (primary) hypertension; F12.10 Cannabis abuse, uncomplicated; K21.9 Gastro-esophageal reflux disease without esophagitis; B19.20 Unspecified viral hepatitis C without hepatic coma; F98.8 Other specified behavioral and emotional disorders with onset usually occurring in childhood and adolescence; F90.9 Attention-deficit hyperactivity disorder, unspecified type; F41.9 Anxiety disorder, unspecified; F10.10 Alcohol abuse, uncomplicated; F17.210 Nicotine dependence, cigarettes, uncomplicated; Z87.442 Personal history of urinary calculi; Z88.5 Allergy status to narcotic agent; Z88.8 Allergy status to other drugs, medicaments and biological substances; Z82.49 Family history of ischemic heart disease and other diseases of the circulatory system; Z80.0 Family history of malignant neoplasm of digestive organs; Z91.19 Patient's noncompliance with other medical treatment and regimen; Z87.19 Personal history of other diseases of the digestive system; Z79.51 Long term (current) use of inhaled steroids; Z90.89 Acquired absence of other organs; Z98.890 Other specified postprocedural states
CPT/HCPCS: 36415; 80053; 81000; 85025

== ENCOUNTER 2018-11-26 08:45 | Emergency (ER) | payer MEDICARE, MEDICAID ==
[~2018-11-26] VITALS: Ht 162.6 cm; Wt 57.6 kg
--- OUTSIDE RECORDS SUMMARY | 2018-11-26 08:50 | XMS REPORT ---
Author Author Migration, Doctor Organization [facility] Address Unknown Phone Unavailable Care Team Providers Care Casino Floor Person Name Role Phone Migration, Doctor Unavailable Unavailable PROBLEMS Unknown Problems ALLERGIES No Information ENCOUNTERS Encounter Location Date Diagnosis [place] [id number], [place] [address] Nov, [facility] [id number] [address] Jan, [place] [id number], [place] [address] Oct, [place] [id number], [place] [address] Jul, IMMUNIZATIONS No Known Immunizations SOCIAL HISTORY Never Assessed REASON FOR VISIT [facility]MR-[facility] PLAN OF CARE VITAL SIGNS MEDICATIONS Unknown Medications RESULTS No Results PROCEDURES No Known procedures INSTRUCTIONS MEDICATIONS ADMINISTERED No Known Medications
--- OUTSIDE RECORDS SUMMARY | 2018-11-26 08:50 | XMS REPORT | Clinical Summary ---
Author Author [facility] Organization [facility] Address Unknown Phone Unavailable Care Team Providers Care It Auditor Name Role Phone Jose Feliciano RN Unavailable Francis Hutson MD Unavailable Source Comments Some departments are not documenting in the electronic medical record. If you d o not see the information that you expected, contact Release of Information in [facility] Information Management department at [phone] for further assistan ce in locating additional records.[facility] Allergies Not on File Medications Not on file Active Problems Not on file Social History Date Tobacco Use Types Packs/Day Years Used Never Assessed Sex Assigned at Date Recorded Not on file Industry Job Start Date Occupation Not on file Not on file Not on file Travel End Travel History Travel Start No recent travel history available. 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
--- OUTSIDE RECORDS SUMMARY | 2018-11-26 08:53 | XMS REPORT | Continuity of Care Document ---
Author Organization Unknown Address Unknown Phone Unavailable Allergies Active Description Code Type Severity Reaction Onset Reported/Identified Relationship to Patient Clinical Status Yes codeine Drug Allergy N/A N/A 11/09/2008 Yes codeine [id number] Drug Allergy Unknown N/A 10/07/2016 Yes fentanyl [id number] Drug Allergy Unknown PATIENT REQUES 05/15/2018 Medications There is no data. Problems Date [...] NEC 08/12/2013 GOLD HOWARD MD Ot V06.1 [id number], COMBINED [ 06/16/2014 MAYCOL GUERRA MD Ot 722.52 06/16/2014 MAYCOL GUERRA MD Ot 722.83 06/16/2014 MAYCOL GUERRA MD Ot V72.63 06/16/2014 MAYCOL GUERRA MD Ot V72.81 06/16/2014 MAYCOL GUERRA MD Ot V74.8 06/18/2014 MAYCOL GUERRA MD Ot 722.52 06/18/2014 MAYCOL GUERRA MD Ot 722.83 06/18/2014 MAYCOL GUERRA MD Ot V72.63 06/18/2014 MAYCOL GUERRA MD Ot V72.81 06/18/2014 MAYCOL GUERRA MD Ot V74.8 08/17/2014 MAYCOL GUERRA MD Ot 722.52 08/17/2014 MAYCOL GUERRA MD Ot 722.83 08/17/2014 MAYCOL GUERRA MD Ot V72.63 08/17/2014 CHARLIE WASHINGTON, MAYCOL Crandall Ot V74.8 09/11/2014 MAYCOL GUERRA MD Ot 722.52 09/11/2014 MAYCOL GUERRA MD Ot 722.83 09/11/2014 MAYCOL GUERRA MD Ot V72.63 09/11/2014 MAYCOL GUERRA MD Ot V74.8 09/18/2014 Ot 789.01 09/18/2014 Ot 789.01 09/18/2014 Ot 722.52 09/18/2014 KATHY WASHINGTON, LORENZO Crandall Ot 401.9 09/18/2014 LORENZO CHAVEZ MD Ot 786.05 09/18/2014 KATHY WASHINGTON, LORENZO Crandall Ot 786.50 09/18/2014 KATHY WASHINGTON, LORENZO J Ot 401.9 09/18/2014 KATHY WASHINGTON, LORENZO J Ot 786.50 09/18/2014 MARILEE WASHINGTON, CARLOS Salomon Ot 724.02 09/18/2014 MAYCOL GUERRA MD Ot 722.52 09/18/2014 MAYCOL GUERRA MD Ot 722.83 09/18/2014 MAYCOL GUERRA MD Ot V72.63 09/18/2014 MAYCOL GUERRA MD Ot V72.81 09/18/2014 MAYCOL GUERRA MD Ot V74.8 09/18/2014 MAYCOL GUERRA MD Ot 722.52 09/18/2014 MAYCOL GUERRA MD Ot 722.83 09/18/2014 MAYCOL GUERRA MD Ot V72.63 09/18/2014 MAYCOL GUERRA MD Ot V74.8 09/23/2014 PENELOPE COLLAZO Ot 070.70 09/23/2014 PENELOPE COLLAZO Ot 305.1 09/23/2014 PENELOPE COLLAZO Ot 401.9 09/23/2014 PENELOPE COLLAZO Ot 496 09/23/2014 WIL PERALTA, PENELOPE Sandy Ot 785.1 09/28/2014 WIL PA, PENELOPE Sandy Ot 070.70 09/28/2014 WIL PA, PENELOPE Sandy Ot 305.1 09/28/2014 WIL PA, PENELOPE Sandy Ot 401.9 09/28/2014 WIL PA, PENELOPE K Ot 496 09/28/2014 WIL PA, PENELOPE Sandy [...] FALL ON STAIR/STEP NEC 11/25/2014 WIL PA, PENELOEP Sandy Ot 070.70 11/25/2014 WIL PA, PENELOPE Sandy Ot 305.1 11/25/2014 WIL PA, PENELOPE Sandy Ot 401.9 11/25/2014 WIL PA, PENELOPE Sandy Ot 496 11/25/2014 WIL PA, PENELOPE Sandy Ot 785.1 12/01/2014 WIL PA, PENELOPE Sandy Ot 070.70 12/01/2014 WIL PA, PENELOPE Sandy Ot 305.1 12/01/2014 WIL PA, PENELOPE K Ot 401.9 12/01/2014 WIL PA, PENELOPE K Ot 496 12/01/2014 WIL PA, PENELOPE Sandy Ot 785.1 12/20/2014 WIL PA, PENELOPE Sandy Ot 070.70 UNSPECIFIED VIRAL HEPATITIS C WITHOUT HE 12/20/2014 WIL PA, PENELOPE Sandy Ot 305.1 TOBACCO USE DISORDER 12/20/2014 WIL PA, PENELOPE Sandy Ot 401.9 HYPERTENSION NOS 12/20/2014 PENELOPE COLLAZO Ot 496 CHR AIRWAY OBSTRUCT NEC 12/20/2014 PENELOPE COLLAZO Ot 785.1 PALPITATIONS 12/22/2014 RINKU MANDEL DO Ot 715.35 12/29/2014 Ot 070.70 12/29/2014 Ot 491.20 12/29/2014 RINKU MANDEL DO Ot 715.35 01/12/2015 Ot 070.70 01/12/2015 Ot 491.20 01/19/2015 IVY HARDY ANALYTICS DEVELOPER Ot 070.70 UNSPECIFIED VIRAL HEPATITIS C WITHOUT HE 01/19/2015 IVY HARDY ANALYTICS DEVELOPER Ot 530.81 ESOPHAGEAL REFLUX 01/19/2015 IVY HARDY ANALYTICS DEVELOPER Ot 573.8 LIVER DISORDERS NEC 01/19/2015 IVY HARDY ANALYTICS DEVELOPER Ot 780.60 FEVER, UNSPECIFIED 01/19/2015 IVY HARDY ANALYTICS DEVELOPER Ot 789.09 ABDOMINAL PAIN, OTHER SPECIFIED SITE 01/19/2015 IVY HARDY ANALYTICS DEVELOPER Ot V58.69 OT MED,LT,CURRENT USE 01/25/2015 ANITA WASHINGTON, GOLD Baird Ot B19.20 UNSPECIFIED VIRAL HEPATITIS C WITHOUT HE 01/25/2015 ANITA WASHINGTON, GOLD Baird Ot R10.84 GENERALIZED ABDOMINAL PAIN 01/26/2015 Ot 070.70 01/26/2015 Ot 491.20 03/05/2015 TEQUILA MARINO RINKU Mota Ot K76.9 03/10/2015 TEQULIA MARINO RINKU Nakul Ot K76.9 03/31/2015 TEQUILA [...] UNSPECIFIED CIRRHOSIS OF LIVER 04/26/2015 AROLDO MERCADO MD, Ot K76.9 LIVER DISEASE, UNSPECIFIED 04/26/2015 AROLDO MERCADO MD Ot S39.012A STRAIN OF MUSCLE, FASCIA AND TENDON OF L 04/26/2015 AROLDO MERCADO MD Ot W01.0XXA FALL SAME LEV FROM SLIP/TRIP W/O STRIKE 04/26/2015 AROLDO MERCADO MD Ot Y92.002 [facility]HRM [facility] 04/26/2015 AROLDO MERCADO MD Ot Y99.8 [...] DO Ot M54.5 LOW BACK PAIN 08/17/2015 TEQUILA RINKU MARINO Ot M79.7 FIBROMYALGIA 08/17/2015 RUBENABIOLA , RINKU Mota Ot Z91.19 PATIENT'S NONCOMPLIANCE W [facility] 08/18/2015 SHEREENBINTARINKU CULVER DO Ot B19.20 UNSPECIFIED VIRAL HEPATITIS C WITHOUT HE 08/18/2015 TEQUILA RINKU MARINO Ot F17.210 NICOTINE DEPENDENCE, CIGARETTES, [...] DO Ot M54.5 LOW BACK PAIN 08/18/2015 SHEREENRINKU MONTILLA DO Ot M79.7 FIBROMYALGIA 08/18/2015 RINKU MANDEL DO Ot Z91.19 PATIENT'S NONCOMPLIANCE W [facility] 08/25/2015 Ot 789.01 ABDOMINAL PAIN, [...] EXAMINATION 08/25/2015 MAYCOL GUERRA MD Ot V72.81 [id number]-[id number] CARDIOVASCULAR 08/25/2015 MAYCOL GUERRA MD Ot V74.8 [...] MARTIN ACUNA Ot Z91.19 PATIENT'S NONCOMPLIANCE W [facility] 08/27/2015 MARTIN ACUNA Ot F12.10 CANNABIS ABUSE, UNCOMPLICATED 08/27/2015 MARTIN ACUNA Ot F17.210 NICOTINE DEPENDENCE, CIGARETTES, UNCOMPL 08/27/2015 MARTIN ACUNA Ot F41.9 ANXIETY DISORDER, UNSPECIFIED 08/27/2015 MARTIN ACUNA Ot K29.70 GASTRITIS, UNSPECIFIED, WITHOUT BLEEDING 08/27/2015 MARTIN ACUNA Ot K74.60 UNSPECIFIED CIRRHOSIS OF LIVER 08/27/2015 MARTIN ACUNA Ot R59.0 LOCALIZED ENLARGED LYMPH NODES 08/27/2015 MARTIN ACUNA Ot Z91.19 PATIENT'S NONCOMPLIANCE W [facility] 09/16/2015 GOLD HOWARD MD Ot [...] HEPATITIS C WITHOUT HE 11/09/2015 IVY HARDY ANALYTICS DEVELOPER Ot 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 11/09/2015 IVY HARDY ANALYTICS DEVELOPER Ot K70.30 ALCOHOLIC CIRRHOSIS OF LIVER WITHOUT ASC 11/09/2015 IVY HARDY ANALYTICS DEVELOPER Ot R10.13 EPIGASTRIC PAIN 11/09/2015 IVY HARDY ANALYTICS DEVELOPER Ot Z91.19 PATIENT'S NONCOMPLIANCE W [facility] 11/10/2015 IVY HARDY ANALYTICS DEVELOPER Ot B19.20 UNSPECIFIED VIRAL HEPATITIS C WITHOUT HE 11/10/2015 IVY HARDY ANALYTICS DEVELOPER Ot 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 11/10/2015 IVY HARDY ANALYTICS DEVELOPER Ot K70.30 ALCOHOLIC CIRRHOSIS OF LIVER WITHOUT ASC 11/10/2015 IVY HARDY ANALYTICS DEVELOPER Ot R10.13 EPIGASTRIC PAIN 11/10/2015 IVY HARDY ANALYTICS DEVELOPER Ot Z91.19 PATIENT'S NONCOMPLIANCE W [facility] 11/10/2015 IVY HARDY ANALYTICS DEVELOPER Ot B19.20 UNSPECIFIED VIRAL HEPATITIS C WITHOUT HE 11/10/2015 IVY HARDY ANALYTICS DEVELOPER Ot 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 11/10/2015 IVY HARDY ANALYTICS DEVELOPER Ot K70.30 ALCOHOLIC CIRRHOSIS OF LIVER WITHOUT ASC 11/10/2015 IVY HARDY ANALYTICS DEVELOPER Ot R10.13 EPIGASTRIC PAIN 11/10/2015 IVY HARDY ANALYTICS DEVELOPER Ot Z91.19 PATIENT'S NONCOMPLIANCE W [facility] 11/22/2015 GOYO PARK DO Ot [...] HYPERTENSION NOS 11/24/2015 LORENZO CHAVEZ MD Ot 786.50 CHEST PAIN NOS 11/24/2015 MARILEE WASHINGTON, CARLOS Salomon Ot 724.02 SPINAL STENOSIS, LUMBAR REG, W/OUT NEURO 11/24/2015 MAYCOL GUERRA MD Ot 722.52 LUMB/LUMBOSAC DISC DEGEN 11/24/2015 MAYCOL GUERRA MD Ot 722.83 POSTLAMINECT SYND-LUMBAR 11/24/2015 MAYCOL GUERRA MD Ot V72.63 PRE-PROCEDURAL LABORATORY EXAMINATION 11/24/2015 MAYCOL GUERRA MD Ot V72.81 [id number] CARDIOVASCULAR 11/24/2015 MAYCOL GUERRA MD Ot V74.8 [...] Y99.8 OTHER EXTERNAL CAUSE STATUS 12/17/2015 TEQUILA MARINO, RINKU Mota Ot S19.9XXA UNSPECIFIED INJURY OF NECK, INITIAL ENCO 12/17/2015 TEQUILA MARINO, RINKU Mota Ot W19.XXXA UNSPECIFIED FALL, INITIAL ENCOUNTER 12/17/2015 TEQUILA MARINO, RINKU Mota Ot Y99.8 OTHER EXTERNAL CAUSE STATUS 12/28/2015 TEQUILA MARINO, RINKU Mota Ot S19.9XXA UNSPECIFIED INJURY OF NECK, INITIAL ENCO 12/28/2015 TEQUILA MARINO, RINKU Mota Ot W19.XXXA UNSPECIFIED FALL, INITIAL ENCOUNTER 12/28/2015 TEQUILA MARINO, RINKU Mota Ot Y99.8 OTHER EXTERNAL CAUSE STATUS 01/18/2016 AROLDO MERCADO MD Ot E86.0 DEHYDRATION 01/18/2016 AROLDO MERCADO MD Ot F17.210 NICOTINE DEPENDENCE, CIGARETTES, UNCOMPL 01/18/2016 AROLDO MERCADO MD Ot F41.9 ANXIETY DISORDER, UNSPECIFIED 01/18/2016 AROLDO MERCADO MD Ot J40 BRONCHITIS, NOT SPECIFIED ACUTE OR CH 01/18/2016 AROLOD MERCADO MD Ot R00.0 TACHYCARDIA, UNSPECIFIED 01/18/2016 AROLDO MERCADO MD Ot R11.2 NAUSEA WITH VOMITING, UNSPECIFIED 01/18/2016 AROLDO MERCADO MD Ot R53.1 WEAKNESS 01/18/2016 AROLDO MERCADO MD Ot R91.8 OTHER NONSPECIFIC ABNORMAL FINDING OF CORI 01/18/2016 AROLDO MERCADO MD Ot Z79.899 OTHER HALFWAY (CURRENT) DRUG THERAPY 01/19/2016 AROLDO MERCADO MD [...] 01/19/2016 AROLDO MERCADO MD Ot Z79.899 OTHER 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 (CURRENT) DRUG THERAPY 01/25/2016 AROLDO MERCADO MD [...] 01/25/2016 AROLDO MERCADO MD Ot Z79.899 OTHER HALFWAY (CURRENT) DRUG THERAPY 01/25/2016 Ot 789.01 ABDOMINAL [...] EXAMINATION 01/25/2016 MAYCOL GUERRA MD, Ot V72.81 [id number] CARDIOVASCULAR 01/25/2016 MAYCOL GUERRA MD, Ot V74.8 [...] NONSPECIFIC ABNORMAL FINDING OF CORI 02/19/2016 VU LAURA MARINOA K Ot F12.10 CANNABIS ABUSE, UNCOMPLICATED 02/19/2016 VU MARINO DAGOBERTO K Ot F13.10 SEDATIVE, HYPNOTIC OR ANXIOLYTIC ABUSE, 02/19/2016 VU DAGOBERTO K Ot N39.0 URINARY TRACT INFECTION, SITE NOT SPECIF 02/19/2016 VU MARINOLAURAA K Ot N76.0 ACUTE VAGINITIS 02/19/2016 VU DAGOBERTO K Ot R30.0 DYSURIA 02/21/2016 VU LAURAA K Ot F12.10 CANNABIS ABUSE, UNCOMPLICATED 02/21/2016 VU MARINOLAURAA K Ot F13.10 SEDATIVE, HYPNOTIC OR ANXIOLYTIC ABUSE, 02/21/2016 VU DAGOBERTO K Ot N39.0 URINARY TRACT INFECTION, SITE NOT SPECIF 02/21/2016 VU LAURAA K Ot N76.0 ACUTE VAGINITIS 02/21/2016 VU DAGOBERTO K Ot R30.0 DYSURIA 02/26/2016 PJ TREJO Ot F17.210 NICOTINE DEPENDENCE, CIGARETTES, UNCOMPL 02/26/2016 PJ TREJOP Ot I10 ESSENTIAL (PRIMARY) HYPERTENSION 02/26/2016 PJ TREJO Ot M25.512 PAIN IN LEFT SHOULDER 02/26/2016 PJ TREJO Ot M79.1 MYALGIA 02/26/2016 PJ TREJOP Ot R06.00 DYSPNEA, UNSPECIFIED 02/26/2016 PJ TREJO Ot R07.89 OTHER CHEST PAIN 02/26/2016 PJ TREJOP Ot Z79.899 OTHER HALFWAY (CURRENT) DRUG THERAPY 02/28/2016 PJ TREJO JAVA ARCHITECT Ot F17.210 NICOTINE DEPENDENCE, CIGARETTES, UNCOMPL 02/28/2016 MAYA PJ JAVA ARCHITECT Ot I10 ESSENTIAL (PRIMARY) HYPERTENSION 02/28/2016 MAYAPJ Middleton JAVA ARCHITECT Ot M25.512 PAIN IN LEFT SHOULDER 02/28/2016 MAYAPJ MiddletonP Ot M79.1 MYALGIA 02/28/2016 MAYAPJ Middleton JAVA ARCHITECT Ot R06.00 DYSPNEA, UNSPECIFIED 02/28/2016 MAYA, PJ JAVA ARCHITECT Ot R07.89 OTHER CHEST PAIN 02/28/2016 MAYAPJ Middleton JAVA ARCHITECT Ot Z79.899 OTHER 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 (CURRENT) DRUG THERAPY 02/29/2016 RINKU MANDEL DO Ot K74.60 UNSPECIFIED CIRRHOSIS OF LIVER 02/29/2016 RINKU MANDEL DO Ot R91.8 OTHER NONSPECIFIC ABNORMAL FINDING OF CORI 03/13/2016 RINKU MANDEL DO Ot K74.60 UNSPECIFIED CIRRHOSIS OF LIVER 03/13/2016 [facility] RINKU A Ot R91.8 OTHER NONSPECIFIC ABNORMAL FINDING OF CORI 05/08/2016 MAYA, PJ JAVA ARCHITECT Ot B19.20 UNSPECIFIED VIRAL HEPATITIS C WITHOUT HE 05/08/2016 MAYAPJ Middleton JAVA ARCHITECT Ot F17.210 NICOTINE DEPENDENCE, CIGARETTES, UNCOMPL 05/08/2016 MAYA, PJ JAVA ARCHITECT Ot I10 ESSENTIAL (PRIMARY) HYPERTENSION 05/08/2016 MAYA, PJ JAVA ARCHITECT Ot J44.9 CHRONIC OBSTRUCTIVE PULMONARY DISEASE, U 05/08/2016 MAYAPJ Middleton JAVA ARCHITECT Ot R10.13 EPIGASTRIC PAIN 05/08/2016 MAYA, PJ JAVA ARCHITECT Ot R11.2 NAUSEA WITH VOMITING, UNSPECIFIED 05/08/2016 MAYAPJ Middleton JAVA ARCHITECT Ot S39.012A STRAIN OF MUSCLE, FASCIA AND TENDON OF L 05/08/2016 PJ TREJO JAVA ARCHITECT Ot X50.9XXA OTHER AND UNSPECIFIED OVREXRTN OR STRNOU 05/08/2016 MAYA PJ JAVA ARCHITECT Ot Y92.[address] IN [facility] NON[facility] 05/08/2016 MAYAPJ MiddletonP Ot Y99.8 OTHER EXTERNAL CAUSE STATUS 05/08/2016 MAYAPJ Middleton JAVA ARCHITECT Ot Z79.899 OTHER 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 (CURRENT) DRUG THERAPY 05/10/2016 PJ TREJOP Ot [...] AND UNSPECIFIED OVREXRTN OR STRNOU 05/10/2016 PJ TREJOP Ot Y92.[address] [facility] [address] IN [facility] NON[facility] 05/10/2016 PJ TREJOP Ot Y99.8 OTHER EXTERNAL CAUSE STATUS 05/10/2016 PJ TREJOP Ot Z79.899 OTHER HALFWAY (CURRENT) DRUG THERAPY 09/01/2016 AROLDO MERCADO MD [...] 09/01/2016 AROLDO MERCADO MD, Ot Z79.899 OTHER 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 (CURRENT) DRUG THERAPY 09/06/2016 DAGOBERTO WOMACK DO Ot B19.20 UNSPECIFIED VIRAL HEPATITIS C WITHOUT HE 09/06/2016 VU LAURA MARINOA K Ot F17.210 NICOTINE DEPENDENCE, CIGARETTES, UNCOMPL 09/06/2016 VU LAURA MARINOA K Ot G89.29 OTHER CHRONIC PAIN 09/06/2016 VU DOLAURAA K Ot I10 ESSENTIAL (PRIMARY) HYPERTENSION 09/06/2016 VU LAURA MARINOA K Ot J44.9 CHRONIC OBSTRUCTIVE PULMONARY DISEASE, U 09/06/2016 VU LAURA MARINOA K Ot K29.21 ALCOHOLIC GASTRITIS WITH BLEEDING 09/06/2016 VU DO, DAGOBERTO K Ot K70.30 ALCOHOLIC CIRRHOSIS OF LIVER WITHOUT ASC 09/06/2016 VU DO DAGOBERTO K Ot K76.6 PORTAL HYPERTENSION 09/06/2016 VU DO DAGOBERTO K Ot M54.5 LOW BACK PAIN 09/06/2016 VU DO DAGOBERTO K Ot R04.2 HEMOPTYSIS 09/06/2016 VU DO DAGOBERTO K Ot Z79.899 OTHER 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 (CURRENT) DRUG THERAPY 09/06/2016 VU DAGOBERTO K Ot Z91.19 PATIENT'S NONCOMPLIANCE W [facility] 09/12/2016 LAURA WOMACK DOA K Ot B19.20 UNSPECIFIED VIRAL HEPATITIS C WITHOUT HE 09/12/2016 DAGOBERTO WOMACK DO Ot F17.210 NICOTINE DEPENDENCE, CIGARETTES, UNCOMPL 09/12/2016 LAURA WOMACK DOA K Ot G89.29 OTHER CHRONIC PAIN 09/12/2016 VU , DAGOBERTO K Ot I10 ESSENTIAL (PRIMARY) HYPERTENSION [...] VU DO DAGOBERTO K Ot Z79.899 OTHER 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 (CURRENT) DRUG THERAPY 09/12/2016 DAGOBERTO WOMACK DO Ot Z91.19 PATIENT'S NONCOMPLIANCE W [facility] 09/21/2016 AROLDO MERCADO MD Ot [...] OTHER SPECIFIED FACTORS, INI 09/21/2016 AROLDO MERCADO MD Ot Y99.8 OTHER EXTERNAL CAUSE STATUS 09/21/2016 AROLDO MERCADO MD, Ot Z79.899 OTHER 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 (CURRENT) DRUG THERAPY 09/26/2016 GELLENDER DORINKU Ot Z12.31 ENCNTR SCREEN MAMMOGRAM FOR MALIGNANT NE 09/28/2016 GELLENDER DO, RINKU Mota Ot Z12.31 ENCNTR SCREEN MAMMOGRAM FOR MALIGNANT NE 10/02/2016 GELLENDER DORINKU Ot N95.0 POSTMENOPAUSAL BLEEDING 10/03/2016 GELLENDER DO, [...] Ot F17.210 NICOTINE DEPENDENCE, CIGARETTES, UNCOMPL 10/09/2016 TEQUILA MARINO, RINKU Mota Ot I10 ESSENTIAL (PRIMARY) HYPERTENSION 10/09/2016 SHEREENLENDER DO, RINKU Mota Ot J44.9 CHRONIC OBSTRUCTIVE PULMONARY DISEASE, U 10/09/2016 SHEREENLENDER DO, RINKU Mota Ot K21.9 GASTRO-ESOPHAGEAL REFLUX DISEASE WITHOUT 10/09/2016 GELLENDER DO, RINKU Mota Ot K59.00 CONSTIPATION, UNSPECIFIED 10/09/2016 GELLENDER DO, RINKU Mota Ot K74.60 UNSPECIFIED CIRRHOSIS OF LIVER 10/09/2016 GELLENDER DO, RINKU Mota Ot K82.8 OTHER SPECIFIED DISEASES OF GALLBLADDER 10/09/2016 SHEREENLENDER DO, RINKU Mota Ot R10.12 LEFT UPPER QUADRANT PAIN 10/09/2016 GELLENDER DORINKU Ot Z91.19 PATIENT'S NONCOMPLIANCE W [facility] MEDICAL [...] Ot B18.2 CHRONIC VIRAL HEPATITIS C 12/06/2016 SHEREENLENABIOLA DO, RINKU Mota Ot F10.20 ALCOHOL DEPENDENCE, UNCOMPLICATED 12/06/2016 GELLENDER DO, RINKU Mota Ot F17.210 NICOTINE DEPENDENCE, CIGARETTES, UNCOMPL 12/06/2016 SHEREENLENDER DO, RINKU Mota Ot I10 ESSENTIAL (PRIMARY) HYPERTENSION 12/06/2016 TEQUILA DO, RINKU Mota Ot J44.9 CHRONIC OBSTRUCTIVE PULMONARY DISEASE, U 12/06/2016 SHEREENLENDER DO, RINKU Mota Ot K76.89 OTHER SPECIFIED DISEASES OF LIVER 12/06/2016 SHEREENLENDER DO, RINKU Mota Ot R11.2 NAUSEA WITH VOMITING, UNSPECIFIED 12/06/2016 GELLENDER DO, RINKU Mota Ot R19.7 DIARRHEA, UNSPECIFIED 12/06/2016 SHEREENLENDER DO, RINKU Mota Ot S39.012A STRAIN OF MUSCLE, FASCIA AND TENDON OF L 12/06/2016 TEQUILA MARINORINKU Ot X50.9XXA OTHER AND UNSPECIFIED OVREXRTN OR STRNOU 12/06/2016 TEQUILA MARINORINKU Ot Y92.[address] [facility] [address] IN [facility] NON-[facility] (PRIVATE 12/06/2016 TEQUILA MARINO, RINKU Mota Ot Y99.8 OTHER EXTERNAL CAUSE STATUS 12/06/2016 TEQUILA MARINORINKU Ot Z79.899 OTHER HALFWAY (CURRENT) DRUG THERAPY 12/06/2016 TEQUILA MARINORINKU Ot Z91.19 PATIENT'S NONCOMPLIANCE W [facility] 12/06/2016 TEQUILA MARINO, RINKU Mota Ot B18.2 CHRONIC VIRAL HEPATITIS C 12/06/2016 TEQUILA DO, RINKU Mota Ot F10.20 ALCOHOL DEPENDENCE, UNCOMPLICATED 12/06/2016 GELLENDER DO, RINKU Mota Ot F17.210 NICOTINE DEPENDENCE, CIGARETTES, UNCOMPL 12/06/2016 SHEREENLENDER DO, RINKU Mota Ot I10 ESSENTIAL (PRIMARY) HYPERTENSION 12/06/2016 TEQUILA DO, RINKU Mota Ot J44.9 CHRONIC OBSTRUCTIVE PULMONARY DISEASE, U 12/06/2016 SHEREENLENDER DO, RINKU Mota Ot K76.89 OTHER SPECIFIED DISEASES OF LIVER 12/06/2016 SHEREENLENABIOLA DO, RINKU Mota Ot R11.2 NAUSEA WITH VOMITING, UNSPECIFIED 12/06/2016 GELLENDER DO, RINKU Mota Ot R19.7 DIARRHEA, UNSPECIFIED 12/06/2016 RINKU MANDEL DO Ot S39.012A STRAIN OF MUSCLE, FASCIA AND TENDON OF L 12/06/2016 RINKU MANDEL DO Ot X50.9XXA OTHER AND UNSPECIFIED OVREXRTN OR STRNOU 12/06/2016 RINKU MANDEL DO Ot Y92.[address] [facility] [address] IN [facility] NON-[facility] (PRIVATE 12/06/2016 RINKU MANDEL DO Ot Y99.8 OTHER EXTERNAL CAUSE STATUS 12/06/2016 RINKU MANDEL DO Ot Z79.899 OTHER HALFWAY (CURRENT) DRUG THERAPY 12/06/2016 RINKU MANDEL DO Ot Z91.19 PATIENT'S NONCOMPLIANCE W [facility] 01/10/2017 IVY HARDY APRN Ot B19.20 UNSPECIFIED VIRAL HEPATITIS C WITHOUT HE 01/10/2017 IVY HARDY APRN Ot F41.9 ANXIETY DISORDER, UNSPECIFIED 01/10/2017 IVY HARDY APRN Ot F90.9 ATTENTION-DEFICIT HYPERACTIVITY DISORDER 01/10/2017 IVY HARDY APRN Ot I10 ESSENTIAL (PRIMARY) [...] HARDY APRN Ot Z91.19 PATIENT'S NONCOMPLIANCE W [facility] 01/11/2017 IVY HARDY APRN Ot B19.20 UNSPECIFIED VIRAL HEPATITIS C WITHOUT HE 01/11/2017 IVY HARDY APRN Ot F41.9 ANXIETY DISORDER, UNSPECIFIED 01/11/2017 IVY HARDY APRN Ot F90.9 ATTENTION-DEFICIT HYPERACTIVITY DISORDER 01/11/2017 IVY HARDY APRN Ot I10 ESSENTIAL (PRIMARY) HYPERTENSION 01/11/2017 HARDY, PETER J ANALYTICS DEVELOPER Ot J44.9 CHRONIC OBSTRUCTIVE PULMONARY DISEASE, U 01/11/2017 IVY HARDY ANALYTICS DEVELOPER Ot K21.9 GASTRO-ESOPHAGEAL REFLUX DISEASE WITHOUT 01/11/2017 IVY HARDY ANALYTICS DEVELOPER Ot K74.60 UNSPECIFIED CIRRHOSIS OF LIVER 01/11/2017 IVY HARDY ANALYTICS DEVELOPER Ot R10.13 EPIGASTRIC PAIN 01/11/2017 IVY HARDY ANALYTICS DEVELOPER Ot Z87.442 PERSONAL HISTORY OF URINARY CALCULI 01/11/2017 IVY HARDY ANALYTICS DEVELOPER Ot Z90.89 ACQUIRED ABSENCE OF OTHER ORGANS 01/11/2017 IVY HARDY ANALYTICS DEVELOPER Ot Z91.19 PATIENT'S NONCOMPLIANCE W [facility] 03/27/2017 MARTIN ACUNA Ot F12.90 [...] Ot Z87.442 PERSONAL HISTORY OF URINARY CALCULI 09/20/2017 GOLD HOWARD MD Ot B19.20 UNSPECIFIED VIRAL HEPATITIS C WITHOUT HE 09/20/2017 GOLD HOWARD MD Ot F10.20 ALCOHOL DEPENDENCE, UNCOMPLICATED 09/20/2017 GOLD HOWARD MD Ot F12.10 CANNABIS ABUSE, UNCOMPLICATED 09/20/2017 GOLD HOWARD MD Ot F17.210 NICOTINE DEPENDENCE, CIGARETTES, UNCOMPL 09/20/2017 GOLD HOWARD MD, Ot F41.9 ANXIETY DISORDER, UNSPECIFIED 09/20/2017 GOLD HOWARD MD, Ot F90.9 ATTENTION-DEFICIT HYPERACTIVITY DISORDER 09/20/2017 GOLD HOWARD MD Ot I10 ESSENTIAL (PRIMARY) HYPERTENSION 09/20/2017 GOLD HOWARD MD, Ot J44.9 CHRONIC OBSTRUCTIVE PULMONARY DISEASE, U 09/20/2017 GOLD HOWARD MD Ot K21.9 GASTRO-ESOPHAGEAL REFLUX DISEASE WITHOUT 09/20/2017 GOLD HOWARD MD Ot K70.30 ALCOHOLIC CIRRHOSIS OF LIVER WITHOUT ASC 09/20/2017 GOLD HOWARD MD Ot R10.9 UNSPECIFIED ABDOMINAL PAIN 09/20/2017 GOLD HOWARD MD Ot 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 09/20/2017 GOLD HOWARD MD Ot Z80.0 FAMILY HISTORY OF MALIGNANT NEOPLASM OF 09/20/2017 GOLD HOWARD MD, Ot Z82.49 FAMILY HX OF ISCHEM HEART DIS AND OTH DI 09/20/2017 GOLD HOWARD MD, Ot Z87.19 PERSONAL HISTORY OF OTHER DISEASES OF TH 09/20/2017 GOLD HOWARD MD, Ot Z87.442 PERSONAL HISTORY OF URINARY CALCULI 09/20/2017 GOLD HOWARD MD, Ot Z88.5 ALLERGY STATUS TO NARCOTIC AGENT STATUS 09/20/2017 GOLD HOWARD MD, Ot Z90.89 ACQUIRED ABSENCE OF OTHER ORGANS 09/20/2017 GOLD HOWARD MD, Ot Z91.19 PATIENT'S NONCOMPLIANCE W OT MEDICAL TR 09/24/2017 GOLD HOWARD MD, Ot B19.20 UNSPECIFIED VIRAL HEPATITIS C WITHOUT HE 09/24/2017 GOLD HOWARD MD, Ot F10.20 ALCOHOL DEPENDENCE, UNCOMPLICATED 09/24/2017 GOLD HOWARD MD, Ot F12.10 CANNABIS ABUSE, UNCOMPLICATED 09/24/2017 GOLD HOWARD MD, Ot F17.210 NICOTINE DEPENDENCE, CIGARETTES, UNCOMPL 09/24/2017 GOLD HOWARD MD, Ot F41.9 ANXIETY DISORDER, UNSPECIFIED 09/24/2017 GOLD HOWARD MD, Ot F90.9 ATTENTION-DEFICIT HYPERACTIVITY DISORDER 09/24/2017 GOLD HOWARD MD, Ot I10 ESSENTIAL (PRIMARY) HYPERTENSION 09/24/2017 GOLD HOWARD MD, Ot J44.9 CHRONIC OBSTRUCTIVE PULMONARY DISEASE, U 09/24/2017 GOLD HOWARD MD, Ot K21.9 GASTRO-ESOPHAGEAL REFLUX DISEASE WITHOUT 09/24/2017 GOLD HOWARD MD, Ot K70.30 ALCOHOLIC CIRRHOSIS OF LIVER WITHOUT ASC 09/24/2017 GOLD HOWARD MD, Ot R10.9 UNSPECIFIED ABDOMINAL PAIN 09/24/2017 GOLD HOWARD MD, Ot 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 09/24/2017 GOLD HOWARD MD, Ot Z80.0 FAMILY HISTORY OF MALIGNANT NEOPLASM OF 09/24/2017 GOLD HOWARD MD, Ot Z82.49 FAMILY HX OF ISCHEM HEART DIS AND OTH DI 09/24/2017 GOLD HOWARD MD, Ot Z87.19 PERSONAL HISTORY OF OTHER DISEASES OF TH 09/24/2017 GOLD HOWARD MD, Ot Z87.442 PERSONAL HISTORY OF URINARY CALCULI 09/24/2017 GOLD HOWARD MD, Ot Z88.5 ALLERGY STATUS TO NARCOTIC AGENT STATUS 09/24/2017 GOLD HOWARD MD, Ot Z90.89 ACQUIRED ABSENCE OF OTHER ORGANS 09/24/2017 GOLD HOWARD MD, Ot Z91.19 PATIENT'S NONCOMPLIANCE W OT MEDICAL TR 12/19/2017 GOLD HOWARD MD, Ot B19.20 UNSPECIFIED VIRAL HEPATITIS C WITHOUT HE 12/19/2017 GOLD HOWARD MD, Ot F10.20 ALCOHOL DEPENDENCE, UNCOMPLICATED 12/19/2017 GOLD HOWARD MD, Ot F12.10 CANNABIS ABUSE, UNCOMPLICATED 12/19/2017 GOLD HOWARD MD, Ot F41.9 ANXIETY DISORDER, UNSPECIFIED 12/19/2017 GOLD HOWARD MD, Ot F90.9 ATTENTION-DEFICIT HYPERACTIVITY DISORDER 12/19/2017 GOLD HOWARD MD, Ot I10 ESSENTIAL (PRIMARY) HYPERTENSION 12/19/2017 GOLD HOWARD MD, Ot J44.9 CHRONIC OBSTRUCTIVE PULMONARY DISEASE, U 12/19/2017 GOLD HOWARD MD, Ot K21.9 GASTRO-ESOPHAGEAL REFLUX DISEASE WITHOUT 12/19/2017 GOLD HOWARD MD Ot K74.60 UNSPECIFIED CIRRHOSIS OF LIVER 12/19/2017 GOLD HOWARD MD Ot K92.0 HEMATEMESIS 12/19/2017 GOLD HOWARD MD, Ot M54.5 LOW BACK PAIN 12/19/2017 GOLD HOWARD MD Ot R10.13 EPIGASTRIC PAIN 12/19/2017 GOLD HOWARD MD, Ot R16.0 HEPATOMEGALY, NOT ELSEWHERE CLASSIFIED 12/19/2017 GOLD HOWARD MD, Ot 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 12/19/2017 GOLD HOWARD MD, Ot Z80.0 FAMILY HISTORY OF MALIGNANT NEOPLASM OF 12/19/2017 GOLD HOWARD MD, Ot Z80.8 FAMILY HISTORY OF MALIGNANT NEOPLASM OF 12/19/2017 GOLD HOWARD MD, Ot Z82.49 FAMILY HX OF ISCHEM HEART DIS AND OTH DI 12/19/2017 GOLD HOWARD MD, Ot Z87.19 PERSONAL HISTORY OF OTHER DISEASES OF TH 12/19/2017 GOLD HOWARD MD, Ot Z87.442 PERSONAL HISTORY OF URINARY CALCULI 12/19/2017 GOLD HOWARD MD, Ot Z88.5 ALLERGY STATUS TO NARCOTIC AGENT STATUS 12/19/2017 GOLD HOWARD MD, Ot Z90.89 ACQUIRED ABSENCE OF OTHER ORGANS 12/19/2017 GOLD HOWARD MD, Ot Z91.19 PATIENT'S NONCOMPLIANCE W [facility] TR 12/21/2017 GOLD HOWARD MD, Ot B19.20 UNSPECIFIED VIRAL HEPATITIS C WITHOUT HE 12/21/2017 GOLD HOWARD MD Ot F10.20 ALCOHOL DEPENDENCE, UNCOMPLICATED 12/21/2017 GOLD HOWARD MD, Ot F12.10 CANNABIS ABUSE, UNCOMPLICATED 12/21/2017 GOLD HOWARD MD, Ot F41.9 ANXIETY DISORDER, UNSPECIFIED 12/21/2017 GOLD HOWARD MD, Ot F90.9 ATTENTION-DEFICIT HYPERACTIVITY DISORDER 12/21/2017 GOLD HOWARD MD, Ot I10 ESSENTIAL (PRIMARY) HYPERTENSION 12/21/2017 GOLD HOWARD MD, Ot J44.9 CHRONIC OBSTRUCTIVE PULMONARY DISEASE, U 12/21/2017 GOLD HOWARD MD Ot K21.9 GASTRO-ESOPHAGEAL REFLUX DISEASE WITHOUT 12/21/2017 GOLD HOWARD MD Ot K74.60 UNSPECIFIED CIRRHOSIS OF LIVER 12/21/2017 GOLD HOWARD MD Ot K92.0 HEMATEMESIS 12/21/2017 GOLD HOWARD MD, Ot M54.5 LOW BACK PAIN 12/21/2017 GOLD HOWARD MD, Ot R10.13 EPIGASTRIC PAIN 12/21/2017 GOLD HOWARD MD, Ot R16.0 HEPATOMEGALY, NOT ELSEWHERE CLASSIFIED 12/21/2017 GOLD HOWARD MD, Ot 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 12/21/2017 GOLD HOWARD MD, Ot Z80.0 FAMILY HISTORY OF MALIGNANT NEOPLASM OF 12/21/2017 GOLD HOWARD MD, Ot Z80.8 FAMILY HISTORY OF MALIGNANT NEOPLASM OF 12/21/2017 GOLD HOWARD MD, Ot Z82.49 FAMILY HX OF ISCHEM HEART DIS AND OTH DI 12/21/2017 GOLD HOWARD MD, Ot Z87.19 PERSONAL HISTORY OF OTHER DISEASES OF TH 12/21/2017 GOLD HOWARD MD, Ot Z87.442 PERSONAL HISTORY OF URINARY CALCULI 12/21/2017 GOLD HOWARD MD, Ot Z88.5 ALLERGY STATUS TO NARCOTIC AGENT STATUS 12/21/2017 GOLD HOWARD MD, Ot Z90.89 ACQUIRED ABSENCE OF OTHER ORGANS 12/21/2017 GOLD HOWARD MD, Ot Z91.19 PATIENT'S NONCOMPLIANCE W OT MEDICAL TR 04/23/2018 MARTIN ACUNA Ot B19.20 UNSPECIFIED VIRAL HEPATITIS C WITHOUT HE 04/23/2018 MARTIN ACUNA Ot F12.10 CANNABIS ABUSE, UNCOMPLICATED 04/23/2018 MARTIN ACUNA Ot F17.210 NICOTINE DEPENDENCE, CIGARETTES, UNCOMPL 04/23/2018 MARTIN ACUNA Ot F41.9 ANXIETY DISORDER, UNSPECIFIED 04/23/2018 MARTIN ACUNA Ot F90.9 ATTENTION-DEFICIT HYPERACTIVITY DISORDER 04/23/2018 MARTIN ACUNA Ot F98.8 OT BEHAV/EMOTN DISORD W ONSET USLY OCCU 04/23/2018 MARTIN ACUNA Ot I10 ESSENTIAL (PRIMARY) HYPERTENSION 04/23/2018 MARTIN ACUNA Ot J06.9 ACUTE UPPER RESPIRATORY INFECTION, UNSPE 04/23/2018 MARTIN ACUNA Ot J44.9 CHRONIC OBSTRUCTIVE PULMONARY DISEASE, U 04/23/2018 MARTIN ACUNA Ot K21.9 GASTRO-ESOPHAGEAL REFLUX DISEASE WITHOUT 04/23/2018 MARTIN ACUNA Ot M25.552 PAIN IN LEFT HIP 04/23/2018 MARTIN ACUNA Ot R40.2142 COMA SCALE, EYES OPEN, SPONTANEOUS, EMR 04/23/2018 MARTIN ACUNA Ot R40.2252 COMA SCALE, BEST VERBAL RESPONSE, ORIENT 04/23/2018 MARTIN ACUNA Ot R40.2362 COMA SCALE, BEST MOTOR RESPONSE, OBEYS C 04/23/2018 MARTIN ACUNA Ot S30.0XXA CONTUSION OF LOWER BACK AND PELVIS, INIT 04/23/2018 MARTIN ACUNA Ot S70.12XA CONTUSION OF LEFT THIGH, INITIAL ENCOUNT 04/23/2018 MARTIN ACUNA Ot W00.0XXA FALL ON SAME LEVEL DUE TO ICE AND SNOW, 04/23/2018 MARTIN ACUNA Ot Y92.[address] [facility] [address] IN [facility] NON-INSTITUT (PRIVATE 04/23/2018 MARTIN ACUNA Ot Z79.51 HALFWAY (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 OF INHALED STERO 04/23/2018 MARTIN ACUNA Ot Z80.0 FAMILY HISTORY OF MALIGNANT NEOPLASM OF 04/23/2018 MARTIN ACUNA Ot Z80.8 FAMILY HISTORY OF MALIGNANT NEOPLASM OF 04/23/2018 MARTIN ACUNA Ot Z82.49 FAMILY HX OF ISCHEM HEART DIS AND OTH DI 04/23/2018 MARTIN ACUNA Ot Z87.19 PERSONAL HISTORY OF OTHER DISEASES OF TH 04/23/2018 MARTIN ACUNA Ot Z87.442 PERSONAL HISTORY OF URINARY CALCULI 04/23/2018 MARTIN ACUNA Ot Z88.5 ALLERGY STATUS TO NARCOTIC AGENT STATUS 04/23/2018 MARTIN ACUNA Ot Z90.89 ACQUIRED ABSENCE OF OTHER ORGANS 04/25/2018 MARTIN ACUNA Ot B19.20 UNSPECIFIED VIRAL HEPATITIS C WITHOUT HE 04/25/2018 MARTIN ACUNA Ot F12.10 CANNABIS ABUSE, UNCOMPLICATED 04/25/2018 EDEL PA, MARTIN L Ot F17.210 NICOTINE DEPENDENCE, CIGARETTES, UNCOMPL 04/25/2018 MARTIN ACUNA Ot F41.9 ANXIETY DISORDER, UNSPECIFIED 04/25/2018 MARTIN ACUNA Ot F90.9 ATTENTION-DEFICIT HYPERACTIVITY DISORDER 04/25/2018 MARTIN ACUNA Ot F98.8 OTH BEHAV/EMOTN DISORD W ONSET USLY OCCU 04/25/2018 MARTIN ACUNA Ot I10 ESSENTIAL (PRIMARY) HYPERTENSION 04/25/2018 MARTIN ACUNA Ot J06.9 ACUTE UPPER RESPIRATORY INFECTION, UNSPE 04/25/2018 MARTIN ACUNA Ot J44.9 CHRONIC OBSTRUCTIVE PULMONARY DISEASE, U 04/25/2018 MARTIN ACUNA Ot K21.9 GASTRO-ESOPHAGEAL REFLUX DISEASE WITHOUT 04/25/2018 MARTIN ACUNA Ot M25.552 PAIN IN LEFT HIP 04/25/2018 MARTIN ACUNA Ot R40.2142 COMA SCALE, EYES OPEN, SPONTANEOUS, EMR 04/25/2018 MARTIN ACUNA Ot R40.2252 COMA SCALE, BEST VERBAL RESPONSE, ORIENT 04/25/2018 MARTIN ACUNA Ot R40.2362 COMA SCALE, BEST MOTOR RESPONSE, OBEYS C 04/25/2018 MARTIN ACUNA Ot S30.0XXA CONTUSION OF LOWER BACK AND PELVIS, INIT 04/25/2018 MARTIN ACUNA Ot S70.12XA CONTUSION OF LEFT THIGH, INITIAL ENCOUNT 04/25/2018 MARTIN ACUNA Ot W00.0XXA FALL ON SAME LEVEL DUE TO ICE AND SNOW, 04/25/2018 MARTIN ACUNA Ot Y92.[address] [facility] [address] IN [facility] NON-INSTITUT (PRIVATE 04/25/2018 MARTIN ACUNA Ot 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 04/25/2018 MARTIN ACUNA Ot Z80.0 FAMILY HISTORY OF MALIGNANT NEOPLASM OF 04/25/2018 MARTIN ACUNA Ot Z80.8 FAMILY HISTORY OF MALIGNANT NEOPLASM OF 04/25/2018 MARTIN ACUNA Ot Z82.49 FAMILY HX OF ISCHEM HEART DIS AND OTH DI 04/25/2018 MARTIN ACUNA Ot Z87.19 PERSONAL HISTORY OF OTHER DISEASES OF TH 04/25/2018 MARTIN ACUNA Ot Z87.442 PERSONAL HISTORY OF URINARY CALCULI 04/25/2018 MARTIN ACUNA Ot Z88.5 ALLERGY STATUS TO NARCOTIC AGENT STATUS 04/25/2018 MARTIN ACUNA Ot Z90.89 ACQUIRED ABSENCE OF OTHER ORGANS 04/25/2018 LORENZO CHAVEZ MD Ot 401.9 HYPERTENSION NOS 04/25/2018 LORENZO CHAVEZ MD Ot 786.05 SHORTNESS OF BREATH 04/25/2018 LORENZO CHAVEZ MD Ot 786.50 CHEST PAIN NOS 04/25/2018 LORENZO CHAVEZ MD Ot 401.9 HYPERTENSION NOS 04/25/2018 LORENZO CHAVEZ MD Ot 786.50 CHEST PAIN NOS 04/25/2018 MARILEE WASHINGTON, CARLOS Salomon Ot 724.02 SPINAL STENOSIS, LUMBAR REG, W/OUT NEURO 04/25/2018 MAYCOL GUERRA MD Ot 722.52 LUMB/LUMBOSAC DISC DEGEN 04/25/2018 MAYCOL GUERRA MD Ot 722.83 POSTLAMINECT SYND-LUMBAR 04/25/2018 MAYCOL GUERRA MD Ot V72.63 PRE-PROCEDURAL LABORATORY EXAMINATION 04/25/2018 MAYCOL GUERRA MD, Ot V72.81 [id number] CARDIOVASCULAR 04/25/2018 MAYCOL GUERRA MD Ot V74.8 SCREEN-BACTERIAL DIS NEC 04/25/2018 MAYCOL GUERRA MD Ot 722.52 LUMB/LUMBOSAC DISC DEGEN 04/25/2018 MAYCOL GUERRA MD Ot 722.83 POSTLAMINECT SYND-LUMBAR 04/25/2018 MAYCOL GUERRA MD Ot V72.63 PRE-PROCEDURAL LABORATORY EXAMINATION 04/25/2018 MAYCOL GUERRA MD, Ot V74.8 SCREEN-BACTERIAL DIS NEC 04/25/2018 RINKU MANDEL DO Ot 715.35 LOC OSTEOARTH NOS-PELVIS 04/25/2018 PENELOPE COLLAZO Ot 070.70 UNSPECIFIED VIRAL HEPATITIS C WITHOUT HE 04/25/2018 PENELOPE COLLAZO Ot 305.1 TOBACCO USE DISORDER 04/25/2018 PENELOPE COLLAZO Ot 401.9 HYPERTENSION NOS 04/25/2018 PENELOPE COLLAZO Ot 496 CHR AIRWAY OBSTRUCT NEC 04/25/2018 PENELOPE COLLAZO Ot 785.1 PALPITATIONS 04/25/2018 Ot 070.70 UNSPECIFIED VIRAL HEPATITIS C WITHOUT HE 04/25/2018 Ot 491.20 OBSTR CHRONIC BRONCHITIS, W/O EXACERBATI 04/25/2018 GELLENDER DO, RINKU Mota Ot R93.5 ABN FINDINGS ON DX IMAGING OF ABD REGION 04/25/2018 GELLENDER DO, RINKU Mota Ot K76.9 LIVER DISEASE, UNSPECIFIED 04/25/2018 GELLENDER DO, RINKU Mota Ot K74.60 UNSPECIFIED CIRRHOSIS OF LIVER 04/25/2018 GELLENDER DO, RIKNU Mota Ot S19.9XXA UNSPECIFIED INJURY OF NECK, INITIAL ENCO 04/25/2018 SHEREENLENDER DO, RINKU Mota Ot W19.XXXA UNSPECIFIED FALL, INITIAL ENCOUNTER 04/25/2018 [facility] RINKU Mota Ot Y99.8 OTHER EXTERNAL CAUSE STATUS 04/25/2018 GELLENDER DO, RINKU Mota Ot K74.60 UNSPECIFIED CIRRHOSIS OF LIVER 04/25/2018 GELLENDER DO, RINKU Mota Ot R91.8 OTHER NONSPECIFIC ABNORMAL FINDING OF CORI 04/25/2018 [facility] RINKU Mota Ot Z12.31 ENCNTR SCREEN MAMMOGRAM FOR MALIGNANT NE 04/25/2018 GELLENDER DO, RINKU Mota Ot N95.0 POSTMENOPAUSAL BLEEDING 04/25/2018 GELLENDER DO, RINKU Mota Ot N64.89 OTHER SPECIFIED DISORDERS OF BREAST 04/25/2018 GELLENDER DO, RINKU Mota Ot R92.8 OTH ABN AND INCONCLUSIVE FINDINGS ON DX 05/15/2018 PENELOPE COLLAZO Ot 070.70 UNSPECIFIED VIRAL HEPATITIS C WITHOUT HE 05/15/2018 PENELOPE COLLAZO Ot 305.1 TOBACCO USE DISORDER 05/15/2018 PENELOPE COLLAZO Ot 401.9 HYPERTENSION NOS 05/15/2018 PENELOPE COLLAZO Ot 496 CHR AIRWAY OBSTRUCT NEC 05/15/2018 PENELOPE COLLAZO Ot 785.1 PALPITATIONS 05/15/2018 JESS WASHINGTON, AROLDO Salomon Ot B19.20 UNSPECIFIED VIRAL HEPATITIS C WITHOUT HE 05/15/2018 AORLDO MERCADO MD, Ot E86.0 DEHYDRATION 05/15/2018 AROLDO MERCADO MD Ot F10.10 ALCOHOL ABUSE, UNCOMPLICATED 05/15/2018 AROLDO MERCADO MD, Ot F12.10 CANNABIS ABUSE, UNCOMPLICATED 05/15/2018 AROLDO MERCADO MD, Ot F17.210 NICOTINE DEPENDENCE, CIGARETTES, UNCOMPL 05/15/2018 AROLDO MERCADO MD Ot F41.9 ANXIETY DISORDER, UNSPECIFIED 05/15/2018 AROLDO MERCADO MD, Ot F90.9 ATTENTION-DEFICIT HYPERACTIVITY DISORDER 05/15/2018 AROLDO MERCADO MD, Ot F98.8 OT BEHAV/EMOTN DISORD W ONSET USLY OCCU 05/15/2018 AROLDO MERCADO MD, Ot I10 ESSENTIAL (PRIMARY) HYPERTENSION 05/15/2018 AROLDO MERCADO MD, Ot J44.9 CHRONIC OBSTRUCTIVE PULMONARY DISEASE, U 05/15/2018 AROLDO MERCADO MD, Ot K21.9 GASTRO-ESOPHAGEAL REFLUX DISEASE WITHOUT 05/15/2018 AROLDO MERCADO MD, Ot R11.2 NAUSEA WITH VOMITING, UNSPECIFIED 05/15/2018 AROLDO MERCAOD MD, Ot 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 05/15/2018 AROLDO MERCADO MD, Ot Z80.0 FAMILY HISTORY OF MALIGNANT NEOPLASM OF 05/15/2018 AROLDO MERCADO MD Ot Z82.49 FAMILY HX OF ISCHEM HEART DIS AND OTH DI 05/15/2018 AROLDO MERCADO MD, Ot Z87.19 PERSONAL HISTORY OF OTHER DISEASES OF TH 05/15/2018 AROLDO MERCADO MD, Ot Z87.442 PERSONAL HISTORY OF URINARY CALCULI 05/15/2018 AROLDO MERCADO MD, Ot Z88.5 ALLERGY STATUS TO NARCOTIC AGENT STATUS 05/15/2018 AROLDO MERCADO MD, Ot Z88.8 ALLERGY STATUS TO OT DRUG/MEDS/BIOL SUB 05/15/2018 AROLDO MERCADO MD, Ot Z90.89 ACQUIRED ABSENCE OF OTHER ORGANS 05/15/2018 AROLDO MERCADO MD, Ot Z91.19 PATIENT'S NONCOMPLIANCE W OT MEDICAL TR 05/15/2018 AROLDO MERCADO MD Ot Z98.890 OTHER SPECIFIED POSTPROCEDURAL STATES 05/17/2018 AROLDO MERCADO MD, Ot B19.20 UNSPECIFIED VIRAL HEPATITIS C WITHOUT HE 05/17/2018 AROLDO MERCADO MD Ot E86.0 DEHYDRATION 05/17/2018 AROLDO MERCADO MD Ot F10.10 ALCOHOL ABUSE, UNCOMPLICATED 05/17/2018 AROLDO EMRCADO MD Ot F12.10 CANNABIS ABUSE, UNCOMPLICATED 05/17/2018 AROLDO MERCADO MD Ot F17.210 NICOTINE DEPENDENCE, CIGARETTES, UNCOMPL 05/17/2018 AROLDO MERCADO MD, Ot F41.9 ANXIETY DISORDER, UNSPECIFIED 05/17/2018 AROLDO MERCADO MD Ot F90.9 ATTENTION-DEFICIT HYPERACTIVITY DISORDER 05/17/2018 AROLDO MERCADO MD Ot F98.8 OT BEHAV/EMOTN DISORD W ONSET USLY OCCU 05/17/2018 AROLDO MERCADO MD Ot I10 ESSENTIAL (PRIMARY) HYPERTENSION 05/17/2018 AROLDO MERCADO MD, Ot J44.9 CHRONIC OBSTRUCTIVE PULMONARY DISEASE, U 05/17/2018 AROLDO MERCADO MD Ot K21.9 GASTRO-ESOPHAGEAL REFLUX DISEASE WITHOUT 05/17/2018 AROLDO MERCADO MD Ot R11.2 NAUSEA WITH VOMITING, UNSPECIFIED 05/17/2018 AROLDO MERCADO MD Ot Z79.51 HALFWAY (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 OF INHALED STERO 05/17/2018 AROLDO MERCADO MD, Ot Z80.0 FAMILY HISTORY OF MALIGNANT NEOPLASM OF 05/17/2018 AROLDO MERCADO MD Ot Z82.49 FAMILY HX OF ISCHEM HEART DIS AND OTH DI 05/17/2018 AROLDO MERCADO MD, Ot Z87.19 PERSONAL HISTORY OF OTHER DISEASES OF TH 05/17/2018 AROLDO MERCADO MD, Ot Z87.442 PERSONAL HISTORY OF URINARY CALCULI 05/17/2018 AROLDO MERCADO MD Ot Z88.5 ALLERGY STATUS TO NARCOTIC AGENT STATUS 05/17/2018 AROLDO MERCADO MD, Ot Z88.8 ALLERGY STATUS TO OT DRUG/MEDS/BIOL SUB 05/17/2018 JESS WASHINGTON, AROLDO Salomon Ot Z90.89 ACQUIRED ABSENCE OF OTHER ORGANS 05/17/2018 JESS WASHINGTON, AROLDO Salomon Ot Z91.19 PATIENT'S NONCOMPLIANCE W OT MEDICAL TR 05/17/2018 AROLDO MERCADO MD, Ot Z98.890 OTHER SPECIFIED POSTPROCEDURAL STATES Procedures Code Description [place] [address] A1C 08/20/2008 18936 T4 FREE 10/05/2008 86231 T3 TOTAL 10/05/2008 [id number] EXCISION OF STOMACH, PYLORUS, ENDO, DIAG 08/17/2015 Results Test Result Range Complete blood [...] Automated erythrocyte mean corpuscular hemoglobin concentration measurement (mass/volume) 35 g/dL 32-36 Automated erythrocyte distribution width ratio 14.3 % 10.0- 14.5 Automated blood platelet count (count/volume) 123 10*3/uL [...] Blood monocytes automated count (number/volume) 0.7 10*3 0.0- 1.0 Automated eosinophil count 0.2 10*3/uL 0.0-0.3 Automated [...] measurement in platelet poor plasma (mass/volume) - 01/18/16 13:52 Fibrin D-dimer FEU measurement in platelet [...] Serum or plasma aspartate aminotransferase measurement (enzymatic activity/volume) 70 U/L 5-34 Serum or plasma alanine aminotransferase measurement (enzymatic activity/volume) 46 U/L 0-55 Serum or plasma protein [...] sediment leukocyte count by microscopy (number/high power field) RARE NRG Bacteria detection in urine sediment [...] sediment leukocyte count by microscopy (number/high power field) [HPF] NRG Bacteria detection in urine sediment [...] culture - 02/19/16 22:56 Bacterial urine culture NRG Bacteria identification in genital specimen by [...] Blood lactic acid measurement (moles/volume) 1.8 mmol/L 0.5- 2.0 Complete blood count (CBC) with automated white [...] Automated erythrocyte mean corpuscular hemoglobin concentration measurement (mass/volume) 35 g/dL 32-36 Automated erythrocyte distribution width ratio 13.3 % 10.0- 14.5 Automated blood platelet count (count/volume) 129 10*3/uL [...] Blood monocytes automated count (number/volume) 0.6 10*3 0.0- 1.0 Automated eosinophil count 0.2 10*3/uL 0.0-0.3 Automated [...] Serum or plasma aspartate aminotransferase measurement (enzymatic activity/volume) 34 U/L 5-34 Serum or plasma alanine aminotransferase measurement (enzymatic activity/volume) 21 U/L 0-55 Serum or plasma protein [...] sediment leukocyte count by microscopy (number/high power field) NONE NRG Bacteria detection in urine sediment [...] sediment leukocyte count by microscopy (number/high power field) [HPF] NRG Bacteria detection in urine sediment [...] Automated erythrocyte mean corpuscular hemoglobin concentration measurement (mass/volume) 34 g/dL 32-36 Automated erythrocyte distribution width ratio 13.8 % 10.0- 14.5 Automated blood platelet count (count/volume) 126 10*3/uL [...] Blood monocytes automated count (number/volume) 0.6 10*3 0.0- 1.0 Automated eosinophil count 0.2 10*3/uL 0.0-0.3 Automated [...] Serum or plasma aspartate aminotransferase measurement (enzymatic activity/volume) 53 U/L 5-34 Serum or plasma alanine aminotransferase measurement (enzymatic activity/volume) 33 U/L 0-55 Serum or plasma protein measurement (mass/volume) 8.7 g/dL 6.4-8.2 Serum or plasma albumin measurement (mass/volume) 4.1 g/dL 3.2-4.5 Serum or plasma amylase measurement (enzymatic activity/volume) - 05/08/16 11:50 Serum or plasma amylase measurement (enzymatic activity/volume) [...] Automated erythrocyte mean corpuscular hemoglobin concentration measurement (mass/volume) 34 g/dL 32-36 Automated erythrocyte distribution width ratio 14.3 % 10.0- 14.5 Automated blood platelet count (count/volume) 112 10*3/uL [...] Blood monocytes automated count (number/volume) 0.7 10*3 0.0- 1.0 Automated eosinophil count 0.4 10*3/uL 0.0-0.3 Automated [...] Serum or plasma aspartate aminotransferase measurement (enzymatic activity/volume) 86 U/L 5-34 Serum or plasma alanine aminotransferase measurement (enzymatic activity/volume) 55 U/L 0-55 Serum or plasma protein [...] Automated erythrocyte mean corpuscular hemoglobin concentration measurement (mass/volume) 34 g/dL 32-36 Automated erythrocyte distribution width ratio 13.9 % 10.0- 14.5 Automated blood platelet count (count/volume) 120 10*3/uL [...] Blood monocytes automated count (number/volume) 0.5 10*3 0.0- 1.0 Automated eosinophil count 0.3 10*3/uL 0.0-0.3 Automated [...] Serum or plasma aspartate aminotransferase measurement (enzymatic activity/volume) 59 U/L 5-34 Serum or plasma alanine aminotransferase measurement (enzymatic activity/volume) 39 U/L 0-55 Serum or plasma protein measurement (mass/volume) 7.8 g/dL 6.4-8.2 Serum or plasma albumin measurement (mass/volume) 3.7 g/dL 3.2-4.5 Magnesium - 09/06/16 07:50 Magnesium 2.2 mg/dL 1.8-2.4 Serum or plasma amylase measurement (enzymatic activity/volume) - 09/06/16 07:50 Serum or plasma amylase measurement (enzymatic activity/volume) [...] sediment leukocyte count by microscopy (number/high power field) NONE NRG Bacteria detection in urine sediment [...] Automated erythrocyte mean corpuscular hemoglobin concentration measurement (mass/volume) 34 g/dL 32-36 Automated erythrocyte distribution width ratio 13.6 % 10.0- 14.5 Automated blood platelet count (count/volume) 141 10*3/uL [...] Blood monocytes automated count (number/volume) 0.5 10*3 0.0- 1.0 Automated eosinophil count 0.5 10*3/uL 0.0-0.3 Automated [...] Serum or plasma aspartate aminotransferase measurement (enzymatic activity/volume) 48 U/L 5-34 Serum or plasma alanine aminotransferase measurement (enzymatic activity/volume) 28 U/L 0-55 Serum or plasma protein measurement (mass/volume) 8.8 g/dL 6.4-8.2 Serum or plasma albumin measurement (mass/volume) 4.1 g/dL 3.2-4.5 Serum or plasma amylase measurement (enzymatic activity/volume) - 10/07/16 18:49 Serum or plasma amylase measurement (enzymatic activity/volume) [...] sediment leukocyte count by microscopy (number/high power field) [HPF] NRG Bacteria detection in urine sediment [...] Automated erythrocyte mean corpuscular hemoglobin concentration measurement (mass/volume) 34 g/dL 32-36 Automated erythrocyte distribution width ratio 13.5 % 10.0- 14.5 Automated blood platelet count (count/volume) 113 10*3/uL [...] Blood monocytes automated count (number/volume) 0.8 10*3 0.0- 1.0 Automated eosinophil count 0.3 10*3/uL 0.0-0.3 Automated [...] Serum or plasma aspartate aminotransferase measurement (enzymatic activity/volume) 44 U/L 5-34 Serum or plasma alanine aminotransferase measurement (enzymatic activity/volume) 24 U/L 0-55 Serum or plasma protein measurement (mass/volume) 8.0 g/dL 6.4-8.2 Serum or plasma albumin measurement (mass/volume) 3.7 g/dL 3.2-4.5 Serum or plasma amylase measurement (enzymatic activity/volume) - 10/08/16 05:35 Serum or plasma amylase measurement (enzymatic activity/volume) [...] Automated erythrocyte mean corpuscular hemoglobin concentration measurement (mass/volume) 33 g/dL 32-36 Automated erythrocyte distribution width ratio 13.5 % 10.0- 14.5 Automated blood platelet count (count/volume) 120 10*3/uL [...] Blood monocytes automated count (number/volume) 0.5 10*3 0.0- 1.0 Automated eosinophil count 0.4 10*3/uL 0.0-0.3 Automated [...] Serum or plasma aspartate aminotransferase measurement (enzymatic activity/volume) 56 U/L 5-34 Serum or plasma alanine aminotransferase measurement (enzymatic activity/volume) 31 U/L 0-55 Serum or plasma protein measurement (mass/volume) 8.0 g/dL 6.4-8.2 Serum or plasma albumin measurement (mass/volume) 3.7 g/dL 3.2-4.5 Serum or plasma amylase measurement (enzymatic activity/volume) - 10/09/16 06:34 Serum or plasma amylase measurement (enzymatic activity/volume) [...] Automated erythrocyte mean corpuscular hemoglobin concentration measurement (mass/volume) 34 g/dL 32-36 Automated erythrocyte distribution width ratio 15.2 % 10.0- 14.5 Automated blood platelet count (count/volume) 170 10*3/uL [...] Blood monocytes automated count (number/volume) 0.6 10*3 0.0- 1.0 Automated eosinophil count 0.2 10*3/uL 0.0-0.3 Automated [...] Serum or plasma aspartate aminotransferase measurement (enzymatic activity/volume) 108 U/L 5-34 Serum or plasma alanine aminotransferase measurement (enzymatic activity/volume) 54 U/L 0-55 Serum or plasma protein [...] sediment leukocyte count by microscopy (number/high power field) RARE NRG Bacteria detection in urine sediment [...] Automated erythrocyte mean corpuscular hemoglobin concentration measurement (mass/volume) 33 g/dL 32-36 Automated erythrocyte distribution width ratio 15.1 % 10.0- 14.5 Automated blood platelet count (count/volume) 124 10*3/uL [...] Blood monocytes automated count (number/volume) 0.4 10*3 0.0- 1.0 Automated eosinophil count 0.4 10*3/uL 0.0-0.3 Automated [...] Serum or plasma aspartate aminotransferase measurement (enzymatic activity/volume) 79 U/L 5-34 Serum or plasma alanine aminotransferase measurement (enzymatic activity/volume) 45 U/L 0-55 Serum or plasma protein [...] Automated erythrocyte mean corpuscular hemoglobin concentration measurement (mass/volume) 33 g/dL 32-36 Automated erythrocyte distribution width ratio 16.0 % 10.0- 14.5 Automated blood platelet count (count/volume) 155 10*3/uL [...] Blood monocytes automated count (number/volume) 0.7 10*3 0.0- 1.0 Automated eosinophil count 0.2 10*3/uL 0.0-0.3 Automated [...] Serum or plasma aspartate aminotransferase measurement (enzymatic activity/volume) 91 U/L 5-34 Serum or plasma alanine aminotransferase measurement (enzymatic activity/volume) 53 U/L 0-55 Serum or plasma protein [...] sediment leukocyte count by microscopy (number/high power field) NONE NRG Bacteria detection in urine sediment [...] Serum or plasma aspartate aminotransferase measurement (enzymatic activity/volume) 45 U/L 5-34 Serum or plasma alanine aminotransferase measurement (enzymatic activity/volume) 24 U/L 0-55 Serum or plasma protein [...] Automated erythrocyte mean corpuscular hemoglobin concentration measurement (mass/volume) 33 g/dL 32-36 Automated erythrocyte distribution width ratio 15.3 % 10.0- 14.5 Automated blood platelet count (count/volume) 126 10*3/uL [...] Blood monocytes automated count (number/volume) 0.6 10*3 0.0- 1.0 Automated eosinophil count 0.4 10*3/uL 0.0-0.3 Automated [...] sediment leukocyte count by microscopy (number/high power field) NONE NRG Bacteria detection in urine sediment [...] urine sediment by light microscopy MODERATE NRG Complete blood count (CBC) with automated white blood cell (WBC) differential - 09/20/17 08:30 Blood leukocytes automated count (number/volume) 7.0 10*3/uL 4.3-11.0 Blood erythrocytes automated count (number/volume) 4.18 10*6/uL 4.35-5.85 Venous blood hemoglobin measurement (mass/volume) 13.2 g/dL 11.5-16.0 Blood hematocrit (volume fraction) 38 % 35-52 Automated erythrocyte mean corpuscular volume 90 [foz_us] 80-99 Automated erythrocyte mean corpuscular hemoglobin (mass per erythrocyte) 32 pg 25-34 Automated erythrocyte mean corpuscular hemoglobin concentration measurement (mass/volume) 35 g/dL 32-36 Automated erythrocyte distribution width ratio 15.8 % 10.0- 14.5 Automated blood platelet count (count/volume) 147 10*3/uL 130-400 Automated blood platelet mean volume measurement 10.4 [foz_us] 7.4-10.4 Automated blood neutrophils/100 leukocytes 60 % 42-75 Automated blood lymphocytes/100 leukocytes 27 % 12-44 Blood monocytes/100 leukocytes 9 % 0-12 Automated blood eosinophils/100 leukocytes 2 % 0-10 Automated blood basophils/100 leukocytes 1 % 0-10 Blood neutrophils automated count (number/volume) 4.2 10*3 1.8-7.8 Blood lymphocytes automated count (number/volume) 1.9 10*3 1.0-4.0 Blood monocytes automated count (number/volume) 0.7 10*3 0.0- 1.0 Automated eosinophil count 0.2 10*3/uL 0.0-0.3 Automated blood basophil count (count/volume) 0.1 10*3/uL 0.0-0.1 PT panel in platelet poor plasma by coagulation assay - 09/20/17 08:30 Prothrombin time (PT) in platelet poor plasma by coagulation assay 14.4 s 12.2-14.7 INR in platelet poor plasma or blood by coagulation assay 1.1 0.8-1.4 Activated partial thromboplastin time (aPTT) in platelet poor plasma bycoagulation assay - 09/20/17 08:30 Activated partial thromboplastin time (aPTT) in platelet poor plasma bycoagulation assay 32 s 24-35 Comprehensive metabolic panel - 09/20/17 08:30 Serum or plasma sodium measurement (moles/volume) 138 mmol/L 135-145 Serum or plasma potassium measurement (moles/volume) 3.4 mmol/L 3.6-5.0 Serum or plasma chloride measurement (moles/volume) 96 mmol/L 98-107 Carbon dioxide 23 mmol/L 21-32 Serum or plasma anion gap determination (moles/volume) 19 mmol/L 5-14 Serum or plasma urea nitrogen measurement (mass/volume) 5 mg/dL 7-18 Serum or plasma creatinine measurement (mass/volume) 0.60 mg/dL 0.60-1.30 Serum or plasma urea nitrogen/creatinine mass ratio 8 NRG Serum or plasma creatinine measurement with calculation of estimated glomerular filtration rate > NRG Serum or plasma glucose measurement (mass/volume) 81 mg/dL 70-105 Serum or plasma calcium measurement (mass/volume) 9.0 mg/dL 8.5-10.1 Serum or plasma total bilirubin measurement (mass/volume) 1.1 mg/dL 0.1-1.0 Serum or plasma alkaline phosphatase measurement (enzymatic activity/volume) 84 U/L 40-136 Serum or plasma aspartate aminotransferase measurement (enzymatic activity/volume) 112 U/L 5-34 Serum or plasma alanine aminotransferase measurement (enzymatic activity/volume) 58 U/L 0-55 Serum or plasma protein measurement (mass/volume) 8.4 g/dL 6.4-8.2 Serum or plasma albumin measurement (mass/volume) 4.0 g/dL 3.2-4.5 Lipase - 09/20/17 08:30 Lipase 22 U/L 8-78 Serum or plasma ethanol measurement (mass/volume) - 09/20/17 08:30 Serum or plasma ethanol measurement (mass/volume) 50 mg/dL <10 Urine drug screening test - 09/20/17 08:33 Urine phencyclidine detection by screening method NEGATIVE [...] Complete urinalysis with reflex to culture - 09/20/17 08:33 Urine color determination YELLOW NRG Urine clarity [...] sediment leukocyte count by microscopy (number/high power field) NONE NRG Bacteria detection in urine sediment by light microscopy NEGATIVE NRG Squamous epithelial cells detection in urine sediment by light microscopy 10-25 NRG Crystals detection in urine sediment by light microscopy NONE NRG Casts detection in urine sediment by light microscopy NONE NRG Mucus detection in urine sediment by light microscopy NEGATIVE NRG Complete urinalysis with reflex to culture NO NRG Yeast detection in urine sediment by light microscopy MODERATE NRG Bacterial urine culture - 12/19/17 08:37 Bacterial urine culture SEE COMMEN NRG COLONY COUNT . NRG FTX;REPORTABLE 30,000 CFU/ML NRG Complete blood count (CBC) with automated white blood cell (WBC) differential - 05/15/18 10:17 Blood leukocytes automated count (number/volume) 5.7 10*3/uL 4.3-11.0 Blood erythrocytes automated count (number/volume) 4.45 10*6/uL 4.35-5.85 Venous blood hemoglobin measurement (mass/volume) 13.2 g/dL 11.5-16.0 Blood hematocrit (volume fraction) 40 % 35-52 Automated erythrocyte mean corpuscular volume 89 [foz_us] 80-99 Automated erythrocyte mean corpuscular hemoglobin (mass per erythrocyte) 30 pg 25-34 Automated erythrocyte mean corpuscular hemoglobin concentration measurement (mass/volume) 33 g/dL 32-36 Automated erythrocyte distribution width ratio 15.7 % 10.0- 14.5 Automated blood platelet count (count/volume) 147 10*3/uL 130-400 Automated blood platelet mean volume measurement 10.6 [foz_us] 7.4-10.4 Automated blood neutrophils/100 leukocytes 64 % 42-75 Automated blood lymphocytes/100 leukocytes 25 % 12-44 Blood monocytes/100 leukocytes 9 % 0-12 Automated blood eosinophils/100 leukocytes 2 % 0-10 Automated blood basophils/100 leukocytes 1 % 0-10 Blood neutrophils automated count (number/volume) 3.7 10*3 1.8-7.8 Blood lymphocytes automated count (number/volume) 1.4 10*3 1.0-4.0 Blood monocytes automated count (number/volume) 0.5 10*3 0.0- 1.0 Automated eosinophil count 0.1 10*3/uL 0.0-0.3 Automated blood basophil count (count/volume) 0.0 10*3/uL 0.0-0.1 Comprehensive metabolic panel - 05/15/18 10:17 Serum or plasma sodium measurement (moles/volume) 136 mmol/L 135-145 Serum or plasma potassium measurement (moles/volume) 3.8 mmol/L 3.6-5.0 Serum or plasma chloride measurement (moles/volume) 97 mmol/L 98-107 Carbon dioxide 27 mmol/L 21-32 Serum or plasma anion gap determination (moles/volume) 12 mmol/L 5-14 Serum or plasma urea nitrogen measurement (mass/volume) 7 mg/dL 7-18 Serum or plasma creatinine measurement (mass/volume) 0.65 mg/dL 0.60-1.30 Serum or plasma urea nitrogen/creatinine mass ratio 11 NRG Serum or plasma creatinine measurement with calculation of estimated glomerular filtration rate > NRG Serum or plasma glucose measurement (mass/volume) 101 mg/dL 70-105 Serum or plasma calcium measurement (mass/volume) 9.5 mg/dL 8.5-10.1 Serum or plasma total bilirubin measurement (mass/volume) 1.1 mg/dL 0.1-1.0 Serum or plasma alkaline phosphatase measurement (enzymatic activity/volume) 90 U/L 40-136 Serum or plasma aspartate aminotransferase measurement (enzymatic activity/volume) 71 U/L 5-34 Serum or plasma alanine aminotransferase measurement (enzymatic activity/volume) 35 U/L 0-55 Serum or plasma protein measurement (mass/volume) 8.7 g/dL 6.4-8.2 Serum or plasma albumin measurement (mass/volume) 4.1 g/dL 3.2-4.5 CALCIUM CORRECTED 9.4 mg/dL 8.5-10.1 Complete urinalysis with reflex to culture - 05/15/18 10:17 Urine color determination YELLOW NRG Urine clarity [...] sediment leukocyte count by microscopy (number/high power field) [HPF] NRG Bacteria detection in urine sediment by light microscopy TRACE NRG Squamous epithelial cells detection in urine sediment by light microscopy 10-25 NRG Crystals detection in urine sediment by light microscopy NONE NRG Casts detection in urine sediment by light microscopy PRESENT NRG Mucus detection in urine sediment by light microscopy MODERATE NRG Complete urinalysis with reflex to culture NO NRG Yeast detection in urine sediment by light microscopy MODERATE NRG Hyaline casts detection in urine sediment by light microscopy RARE NRG Renal epithelial cells detection in urine sediment by light microscopy NONE NRG Granular casts detection in urine sediment by light microscopy RARE NRG Encounters ACCT No. Visit Date/Time Discharge Status Pt. Type Provider Facility Loc./Unit Complaint [id number] 01/26/2009 00:00:00 01/26/2009 23:59:59 [facility] Outpatient MIKE LEWIS DO [id number] 07/19/2018 09:27:00 07/19/2018 23:59:00 DIS Outpatient JACOB BRIDGES [id number] 11/28/2017 08:33:00 11/28/2017 23:59:00 DIS Outpatient JACOB BRIDGES [id number] 05/15/2018 08:30:00 05/15/2018 12:10:00 DIS Emergency AROLDO MERCADO MD [facility] ER N/V;BACK PAIN [id number] 04/23/2018 09:48:00 04/23/2018 23:59:59 CLS Emergency MARTIN ACUNA [facility] ER BACK PAIN,LT SHOULDER PAIN,FALL [id number] 12/19/2017 08:31:00 12/19/2017 11:25:00 DIS Emergency GOLD HOWARD MD [facility] ER VOMITING,BACK PAIN,NAUSEA [id number] 09/20/2017 07:55:00 09/20/2017 12:18:00 DIS Emergency GOLD HOWARD MD [facility] ER ABD PAIN [id number] 03/27/2017 09:55:00 03/27/2017 13:22:00 DIS Emergency MARTIN ACUNA [facility] ER VOMITED BLOOD [id number] 01/10/2017 11:09:00 01/10/2017 14:02:00 DIS Emergency IVY HARDY APRN [facility] ER STOMACH PAIN [id number] 12/05/2016 13:15:00 12/06/2016 12:30:00 DIS Inpatient RNIKU MANDEL DO [facility] 4TH N/V,DEHYDRATION,CHRONIC BACK PAIN [id number] 10/19/2016 08:35:00 10/19/2016 23:59:59 CLS Outpatient RINKU MANDEL DO [facility] RAD ABNORMAL MAMMO R92.8 [id number] 10/07/2016 22:20:00 10/09/2016 11:20:00 DIS Inpatient RINKU MANDEL DO [facility] 4TH ABDOMINAL PAIN [id number] 10/03/2016 08:43:00 10/03/2016 23:59:59 CLS Outpatient RINKU MANDEL DO [facility] RAD YEARLY MAMMO [id number] 10/02/2016 09:49:00 10/02/2016 23:59:59 CLS Outpatient RINKU MANDEL DO [facility] RAD POST MENOPAUSAL BLEEDING [id number] 09/06/2016 07:13:00 09/06/2016 10:00:00 DIS Emergency VU DAGOBERTO MARINO [facility] ER THROWING UP BLOOD,BACK PAIN [id number] 09/01/2016 20:01:00 09/01/2016 23:36:00 DIS Emergency AROLDO MERCADO MD [facility] ER COUGHING UP BLOOD [id number] 05/08/2016 09:12:00 05/08/2016 13:00:00 DIS Emergency PJ TREJO [facility] ER STOMACH/BACK PAIN [id number] 02/26/2016 16:23:00 02/26/2016 19:04:00 DIS Emergency PJ TREJOP [facility] ER CHEST PAIN, SOA [id number] 02/19/2016 22:43:00 02/19/2016 23:54:00 DIS Emergency DAGOBERTO WOMACK DO [facility] ER URINATION PAIN [id number] 02/08/2016 08:42:00 02/08/2016 23:59:59 CLS Outpatient GELLENDER DO, RINKU A [facility] RAD LUNG MASS VS MUCUS PLUG [id number] 01/18/2016 13:46:00 01/18/2016 17:32:00 DIS Emergency AROLDO MERCADO MD [facility] ER CONFUSION WEAKNESS [id number] 11/24/2015 11:02:00 11/24/2015 23:59:59 CLS Outpatient RINKU MANDEL DO [facility] RAD FELL AND NOW NECK PAIN [id number] 11/09/2015 10:39:00 11/09/2015 12:33:00 DIS Emergency IVY HARDY APRN [facility] ER VOMITING BLOOD/STOMACH PAIN [id number] 10/22/2015 08:49:00 10/22/2015 12:30:00 DIS Emergency AROLDO MERCADO MD [facility] ER UPPER ABD PAIN [id number] 08/26/2015 11:42:00 08/26/2015 16:28:00 DIS Emergency MARTIN ACUNA [facility] ER ABDOMINAL PAIN [id number] 08/25/2015 21:39:00 08/26/2015 00:23:00 DIS Emergency GOLD HOWARD MD [facility] ER UPPER ABD PAIN [id number] 08/16/2015 10:01:00 08/18/2015 09:10:00 DIS Inpatient TEQUILA MARINORINKU [facility] 4TH UPPER GI BLEED [id number] 08/15/2015 21:53:00 08/15/2015 22:09:00 DIS Emergency GOYO PARK DO [facility] ER THROWING UP BLOOD [id number] 05/05/2015 09:13:00 05/05/2015 10:05:00 DIS Emergency DAGOBERTO WOMACK DO [facility] ER BACK PAIN [id number] 04/26/2015 09:09:00 04/26/2015 11:38:00 DIS Emergency AROLDO MERCADO MD [facility] ER FALL/BACK PAIN [id number] 03/03/2015 08:59:00 03/03/2015 23:59:59 CLS Outpatient RINKU MANDEL DO [facility] LAB NODULE IN LIVER, CIRRHOSIS [id number] 02/12/2015 08:43:00 02/12/2015 23:59:59 CLS Outpatient RINKU MANDEL DO [facility] RAD ABNORMAL CT [id number] 02/05/2015 09:48:00 02/05/2015 23:59:59 CLS Outpatient RINKU MANDEL DO [facility] RAD ABNORMAL CT [id number] 01/25/2015 09:29:00 01/25/2015 12:45:00 DIS Emergency GOLD HOWARD MD [facility] ER ABD PAIN [id number] 01/19/2015 09:13:00 01/19/2015 12:31:00 DIS Emergency IVY HARDY APRN [facility] ER FEVER/ABD PAIN [id number] 12/21/2014 08:00:00 12/21/2014 23:59:59 CLS Preadmit PENELOPE COLLAZO [facility] CARD COPD,HTN,PALPITATIONS [id number] 09/21/2014 08:01:00 12/20/2014 00:01:00 DIS Outpatient PENELOPE COLLAZO [facility] CARD COPD,HTN,PALPITATIONS [id number] 12/02/2014 09:35:00 12/02/2014 23:59:59 CLS Outpatient RINKU MANDEL DO [facility] RAD LEFT HIP PAIN-GETTING WORSE [id number] 10/16/2014 08:30:00 10/16/2014 09:25:00 DIS Emergency AROLDO MERCADO MD [facility] ER FALL LEFT SHOULDER PAIN [id number] 07/14/2014 10:01:00 07/14/2014 23:59:59 CLS Outpatient MAYCOL GUERRA MD [facility] PREOP POSTERIOR LAMINECTOMY SYNDROME; SEE NOTES [id number] 06/08/2014 07:30:00 06/08/2014 23:59:59 CLS Preadmit MAYCOL GUERRA MD [facility] SURG POSTERIOR LAMINECTOMY SYNDROME; SEE NOTES [id number] 05/20/2014 09:02:00 05/20/2014 23:59:59 CLS Outpatient MAYCOL GUERRA MD [facility] PREOP POSTERIOR LAMINECTOMY SYNDROME; SEE NOTES [id number] 12/29/2013 08:06:00 12/29/2013 23:59:59 CLS Outpatient CARLOS HUNT MD [facility] RAD STENOSIS [id number] 08/12/2013 07:15:00 08/12/2013 08:53:00 DIS Emergency GOLD HOWARD MD [facility] ER FALL RIGHT KNEE PAIN/RIGHT HAND LAC [id number] 03/10/2013 09:14:00 03/10/2013 10:40:00 DIS Emergency GOLD HOWARD MD [facility] ER BACK PAIN [id number] 03/03/2013 07:33:00 03/03/2013 23:59:59 CLS Outpatient LORENZO CHAVEZ MD [facility] RAD CP,HTN,SOB [id number] 02/12/2013 08:53:00 02/12/2013 23:59:59 CLS Outpatient LORENZO CHAVEZ MD [facility] CARD CP,HTN,SOB [id number] 12/23/2014 08:51:00 Document Registration [id number] 09/18/2014 14:54:00 Document Registration [id number] 09/18/2014 14:54:00 Document Registration [id number] 09/18/2014 14:54:00 Document Registration [id number] 09/18/2014 14:54:00 Document Registration [id number] 09/18/2014 14:54:00 Document Registration [id number] 03/23/2014 15:52:00 Document Registration [id number] 03/23/2014 15:51:00 Document Registration [id number] 08/07/2012 17:50:00 Document Registration [id number] 11/14/2010 10:39:00 Document Registration [id number] 11/01/2010 08:06:00 Document Registration [id number] 10/26/2010 08:37:00 Document Registration [id number] 08/10/2009 02:18:00 Document Registration [id number] 01/26/2015 03:18:11 ACT Document Registration
[2018-11-26] MEDS ORDERED: KETOROLAC 30 MG/ML VIAL IVP STA (09:16)
[2018-11-26] MEDS ORDERED: NS IV 1000 ML 1,000 ML IV STA (09:16)
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
[2018-11-26 09:26] LABS: BASOPHILS # (AUTO) 0.1 10^3/uL (0.0-0.1); BASOPHILS % (AUTO) 1 % (0-10); EOSINOPHILS # (AUTO) 0.1 10^3/uL (0.0-0.3); EOSINOPHILS % (AUTO) 1 % (0-10); HEMATOCRIT 41 % (35-52); HEMOGLOBIN 14.4 G/DL (11.5-16.0); LYMPHOCYTES # (AUTO) 1.3 X 10^3 (1.0-4.0); LYMPHOCYTES % (AUTO) 24 % (12-44); MEAN CORPUSCULAR HEMOGLOBIN 30 PG (25-34); MEAN CORPUSCULAR HGB CONC 35 G/DL (32-36); MEAN CORPUSCULAR VOLUME 87 FL (80-99); MEAN PLATELET VOLUME 10.7 FL (7.4-10.4); MONOCYTES # (AUTO) 0.4 X 10^3 (0.0-1.0); MONOCYTES % (AUTO) 7 % (0-12); NEUTROPHILS # (AUTO) 3.5 X 10^3 (1.8-7.8); NEUTROPHILS % (AUTO) 67 % (42-75); PLATELET COUNT 172 10^3/uL (130-400); RED CELL DISTRIBUTION WIDTH 15.3 % (10.0-14.5); WHITE BLOOD COUNT 5.2 10^3/uL (4.3-11.0)
[2018-11-26] MEDS ORDERED: ONDANSETRON 4 MG/2 ML (SDV) Z0FRAN IVP ONE (09:30)
[2018-11-26 09:35] LABS: ALANINE AMINOTRANSFERASE 60 U/L (0-55); ALBUMIN 4.6 GM/DL (3.2-4.5); ALKALINE PHOSPHATASE 115 U/L (40-136); BUN/CREATININE RATIO 8; CALCIUM 9.8 MG/DL (8.5-10.1); CARBON DIOXIDE 24 MMOL/L (21-32); CHLORIDE 99 MMOL/L (98-107); CREATININE SERUM 0.65 MG/DL (0.60-1.30); GFR ESTIMATED > 60; GLUCOSE 131 MG/DL (70-105); LIPASE 35 U/L (8-78); MAGNESIUM 1.9 MG/DL (1.8-2.4); POTASSIUM 3.6 MMOL/L (3.6-5.0); SODIUM 138 MMOL/L (135-145); TOTAL PROTEIN 8.9 GM/DL (6.4-8.2)
[2018-11-26 09:47] LABS: BILIRUBIN,URINE NEGATIVE (NEGATIVE); CLARITY,URINE CLEAR; COLOR,URINE YELLOW; GLUCOSE, URINE (UA) NEGATIVE (NEGATIVE); KETONES,URINE 2+ (NEGATIVE); LEUKOCYTE ESTERASE ,URINE NEGATIVE (NEGATIVE); NITRITE,URINE NEGATIVE (NEGATIVE); PH,URINE 8 (5-9); PROTEIN,URINE 1+ (NEGATIVE); UROBILINOGEN,URINE NORMAL (NORMAL)
[2018-11-26 09:56] LABS: BACTERIA,URINE NEGATIVE /HPF; YEAST,URINE FEW /HPF
[2018-11-26] MEDS ORDERED: HYDROcodone/APAP 5 MG/325 MG (LORTAB) TAB PO ONE (10:30)
[2018-11-26] MEDS ORDERED: ONDA4TAB11 PO (10:36)
[2018-11-26 11:32] VITALS: BP 126/84
== END 2018-11-26 11:29 | disposition home or self-care (01) ==
LOC: EDUNIT# 08:45 → ER 08:46
DX: S39.012A Strain of muscle, fascia and tendon of lower back, initial encounter (principal); R11.2 Nausea with vomiting, unspecified; R10.13 Epigastric pain; I10 Essential (primary) hypertension; J44.9 Chronic obstructive pulmonary disease, unspecified; F90.9 Attention-deficit hyperactivity disorder, unspecified type; F41.9 Anxiety disorder, unspecified; K21.9 Gastro-esophageal reflux disease without esophagitis; E03.9 Hypothyroidism, unspecified; B19.20 Unspecified viral hepatitis C without hepatic coma; M79.7 Fibromyalgia; F17.210 Nicotine dependence, cigarettes, uncomplicated; Z90.89 Acquired absence of other organs; Z90.49 Acquired absence of other specified parts of digestive tract; Z87.19 Personal history of other diseases of the digestive system; Z88.5 Allergy status to narcotic agent; Z79.51 Long term (current) use of inhaled steroids; Z80.0 Family history of malignant neoplasm of digestive organs; Z82.49 Family history of ischemic heart disease and other diseases of the circulatory system; Z80.8 Family history of malignant neoplasm of other organs or systems; X58.XXXA Exposure to other specified factors, initial encounter
CPT/HCPCS: 36415; 80053; 81000; 83690; 83735; 85025; 86141; 96361; 96374; 96375

== ENCOUNTER → 2019-06-17 | Outpatient (CLI) | payer MEDICARE, MEDICAID ==
[~2019-06-17] MED LIST changes: -TRAM50TA2 PO
== END | disposition home or self-care (01) ==
LOC: PREOP 06:40
PROVIDERS: ATTEND Surgery
DX: Z01.818 Encounter for other preprocedural examination (principal)

== ENCOUNTER 2019-06-24 08:17 | Day surgery (SDC) | payer MEDICARE, MEDICAID ==
[~2019-06-24] VITALS: Ht 165.1 cm; Wt 67.0 kg
[2019-06-24] MEDS ORDERED: LACTATED RINGERS 1,000 ML IV ONE (08:25)
[2019-06-24] MEDS ORDERED: LACTATED RINGERS 1,000 ML IV STA (08:30)
[2019-06-24 08:39] VITALS: BP 140/69
[2019-06-24] MEDS ORDERED: MELO15TA39 PO (08:53)
[2019-06-24] MEDS ORDERED: LEVO25TA5 PO (08:53)
[2019-06-24] MEDS ORDERED: FURO20TA4 PO (08:53)
[2019-06-24] MEDS ORDERED: MIDAZOLAM 2 MG/2 ML (VERSED) VIAL ONE (10:00)
[2019-06-24] MEDS ORDERED: PROPOFOL INJECTION 50 ML IV ONE (10:00)
--- NOTE | 2019-06-24 10:03 | Progress Note-Pre Operative ---
Pre-Operative Progress Note H&P Reviewed The H&P was reviewed, patient examined and no changes noted. Date Seen by Provider: Jun 24, 2019 Time Seen by Provider: 09:46 Date H&P Reviewed: Jun 24, 2019 Time H&P Reviewed: 09:46 Pre-Operative Diagnosis: hx polyps CORETTA MCCRAY DO Jun 24, 2019 10:02
[2019-06-24 10:40] VITALS: BP 158/69
[2019-06-24 10:45] VITALS: BP 162/77
--- NOTE | 2019-06-24 10:48 | Progress Note-Post Operative ---
Post-Operative Progess Note Surgeon (s)/Solutions Engineer (s) Surgeon CORETTA MCCRAY DO Solutions Engineer: na Pre-Operative Diagnosis hx polyps Post-Operative Diagnosis polpys of colon Procedure & Operative Findings Date of Procedure 06/24/19 Procedure Performed/Findings colonoscopy c hot bx polypectomy x 3 and snare polypectomy x 2 and devante inking hepatic flexure Anesthesia Type per kayaking instructor Estimated Blood Loss Estimated blood loss (mL): none Specimens/Packing Specimens Removed colon polyps CORETTA MCCRAY DO Jun 24, 2019 10:48
--- NOTE | 2019-06-24 10:49 | Discharge Inst-Simple/Standard ---
Discharge Inst-Standard Patient Instructions/Follow Up Plan of Care/Instructions/FU: 2 weeks Sachin Activity as Tolerated: Yes Discharge Diet: Regular Diet CORETTA MCCRAY DO Jun 24, 2019 10:49
[2019-06-24 11:15] VITALS: BP 146/82
[2019-06-24 11:25] VITALS: BP 146/82
--- NOTE | 2019-06-24 12:24 | Anesthesia-General Post-Op ---
MAC Patient Condition Mental Status/LOC: Same as Preop Cardiovascular: Satisfactory Nausea/Vomiting: Absent Respiratory: Satisfactory Pain: Controlled Complications: Absent Post Op Complications Complications None Follow Up Care/Instructions Patient Instructions None needed. Anesthesiology Discharge Order Discharge Order Patient is doing well, no complaints, stable vital signs, no apparent adverse anesthesia problems. No complications reported per nursing. JOSE BURKS CRNA Jun 24, 2019 12:05
--- NOTE | 2019-06-24 14:59 | OPERATIVE REPORT ---
DATE OF SERVICE: 06/24/2019 PREOPERATIVE DIAGNOSIS: History of colon polyps. POSTOPERATIVE DIAGNOSIS: Colon polyps. PROCEDURE: Colonoscopy with hot biopsy polypectomy x3 and snare polypectomy x2 and Arianna inking of hepatic flexure colon polyp. INDICATIONS: The patient is a 54-year-old female with history of colon polyps. She understands risks and benefits of procedure and wished to proceed with procedure. Consent was signed in the chart. DESCRIPTION OF PROCEDURE: The patient was taken to the endoscopy suite, placed in left lateral recumbent position. Timeout was performed. Digital rectal exam was performed. There were no palpable polyps, masses or ulcerations. Scope was inserted in the rectum and advanced all the way to cecum with minimal difficulty. Prep was adequate. Scope was then slowly retracted back. There were no polyps, masses or ulcerations within the cecum, in the ascending colon, hepatic flexure, a larger polyp that was wrapped around a fold was present, which hot biopsy polypectomy was performed. A little bit larger polyp and this was just distal to this area was inked with a mL of Arianna ink in two different locations to enzo this area for future examination. Scope was then slowly retracted back in the transverse colon, a small polyp was present, which hot biopsy polypectomy was performed. Scope was then continued to be slowly retracted back and in transverse colon where a larger polyp was present, which snare polypectomy was performed. Scope was then continuously retracted back. At the splenic flexure, another small polyp was present, which hot biopsy polypectomy was performed. Scope was then continuously retracted back. There were no polyps, masses or ulcerations within the descending and sigmoid colon. In the rectum, another small polyp was present, which snare polypectomy was performed. The scope was then retroflexed noting no other pathology. Scope was returned to its normal position, slowly withdrawn until completely removed. The patient tolerated procedure well without any complications. She was taken to recovery room in stable condition. RECOMMENDATIONS: The patient will need repeat colonoscopy in approximately 6 months to reevaluate the hepatic flexure polyp that was inked to make sure it has been eradicated. Any changes before that be seen at that time. The patient will follow up on biopsy results in 2 weeks. Job ID: [id number] DocumentID: [id number] Dictated Date: 06/24/2019 10:52:57 Production Administrative Assistant Date: 06/24/2019 14:58:32 Dictated By: CORETTA MCCRAY DO
== END 2019-06-24 11:25 | disposition home or self-care (01) ==
LOC: ENDO 08:17
PROVIDERS: ATTEND Surgery
DX: D12.3 Benign neoplasm of transverse colon (principal); D12.8 Benign neoplasm of rectum; I10 Essential (primary) hypertension; B19.20 Unspecified viral hepatitis C without hepatic coma; F17.290 Nicotine dependence, other tobacco product, uncomplicated; J44.9 Chronic obstructive pulmonary disease, unspecified; M79.7 Fibromyalgia; F90.9 Attention-deficit hyperactivity disorder, unspecified type; Z79.899 Other long term (current) drug therapy

== ENCOUNTER 2019-08-20 09:59 | Emergency (ER) | payer MEDICARE, MEDICAID ==
[~2019-08-20] VITALS: Ht 165 cm; Wt 61.0 kg
[~2019-08-20 09:59] MED LIST changes: +FURO20TA4 PO; +LEVO25TA5 PO; +MELO15TA39 PO; -OXYC-529 PO; +OXYC5TAB96 PO
--- NOTE | 2019-08-20 10:25 | NUR ---
SEE LIST FOR CURRENT MEDS
--- NOTE | 2019-08-20 10:47 | NUR ---
COVID SWAB [id number]
[2019-08-20 10:53] LABS: BASOPHILS % (AUTO) 1 % (0-10); CLARITY,URINE SL CLOUDY; COLOR,URINE YELLOW; EOSINOPHILS # (AUTO) 0.1 10^3/uL (0.0-0.3); EOSINOPHILS % (AUTO) 3 % (0-10); GLUCOSE, URINE (UA) NEGATIVE (NEGATIVE); HEMATOCRIT 38 % (35-52); HEMOGLOBIN 12.6 G/DL (11.5-16.0); KETONES,URINE TRACE (NEGATIVE); LEUKOCYTE ESTERASE ,URINE TRACE (NEGATIVE); LYMPHOCYTES # (AUTO) 0.6 X 10^3 (1.0-4.0); LYMPHOCYTES % (AUTO) 12 % (12-44); MEAN CORPUSCULAR HEMOGLOBIN 29 PG (25-34); MEAN CORPUSCULAR HGB CONC 34 G/DL (32-36); MEAN CORPUSCULAR VOLUME 87 FL (80-99); MEAN PLATELET VOLUME 11.6 FL (7.4-10.4); MONOCYTES # (AUTO) 0.5 X 10^3 (0.0-1.0); MONOCYTES % (AUTO) 10 % (0-12); NEUTROPHILS # (AUTO) 3.7 X 10^3 (1.8-7.8); NEUTROPHILS % (AUTO) 75 % (42-75); NITRITE,URINE NEGATIVE (NEGATIVE); PH,URINE 5.5 (5-9); PLATELET COUNT 142 10^3/uL (130-400); PROTEIN,URINE 1+ (NEGATIVE); RED CELL DISTRIBUTION WIDTH 18.1 % (10.0-14.5); WHITE BLOOD COUNT 4.9 10^3/uL (4.3-11.0)
[2019-08-20 11:01] LABS: BACTERIA,URINE MODERATE /HPF; BILIRUBIN,URINE 1+ (NEGATIVE); SQUAMOUS EPITHELIAL CELL,UR TNTC /HPF; WBC,URINE 0-2 /HPF
[2019-08-20 11:04] LABS: INR 1.2 (0.8-1.4); PROTHROMBIN TIME PATIENT 15.2 SEC (12.2-14.7)
[2019-08-20 11:11] LABS: ALANINE AMINOTRANSFERASE 22 U/L (0-55); ALBUMIN 3.5 GM/DL (3.2-4.5); ALKALINE PHOSPHATASE 69 U/L (40-136); BILIRUBIN,TOTAL 1.9 MG/DL (0.1-1.0); BUN/CREATININE RATIO 4; CALCIUM 8.3 MG/DL (8.5-10.1); CARBON DIOXIDE 25 MMOL/L (21-32); CHLORIDE 92 MMOL/L (98-107); CREATININE SERUM 0.71 MG/DL (0.60-1.30); GFR ESTIMATED > 60; GLUCOSE 109 MG/DL (70-105); POTASSIUM 2.6 MMOL/L (3.6-5.0); SODIUM 130 MMOL/L (135-145); TOTAL PROTEIN 8.6 GM/DL (6.4-8.2)
[2019-08-20] MEDS ORDERED: NS IV 1000 ML 1,000 ML IV SCH (11:14)
--- NOTE | 2019-08-20 11:17 | Diagnostic Imaging Report ---
INDICATION: Fever. TIME OF EXAM: 11:01 AM. COMPARISON: 12/06/2016. FINDINGS: The heart size is normal. The pulmonary vascularity is unremarkable. The lungs are clear. No infiltrate, effusion, or pneumothorax is detected. IMPRESSION: No acute cardiopulmonary process is detected. Dictated by: Dictated on workstation # [id number]
[2019-08-20] MEDS ORDERED: KCL 10 MEQ TAB (MICRO K) PO STA (11:22)
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
[2019-08-20] MEDS ORDERED: cefTRIAXone 1,000 MG IV (ROCEPHIN) VIAL ONE (11:31)
[2019-08-20] MEDS ORDERED: WATER (STERILE) FOR INJECTION 10 ML ONE (11:32)
[2019-08-20] MEDS ORDERED: ONDA4TAB11 PO (11:34)
[2019-08-20] MEDS ORDERED: cefTRIAXone FOR IV USE 1,000 MG in WATER (STERILE) FOR INJECTION 10 ML IV ONE (11:45)
[2019-08-20 12:05] VITALS: BP 122/66
== END 2019-08-20 12:05 | disposition home or self-care (01) ==
LOC: EDUNIT# 09:59 → ER 10:01
DX: J44.9 Chronic obstructive pulmonary disease, unspecified (principal); N30.01 Acute cystitis with hematuria; I10 Essential (primary) hypertension; B19.20 Unspecified viral hepatitis C without hepatic coma; K21.9 Gastro-esophageal reflux disease without esophagitis; M79.7 Fibromyalgia; M19.91 Primary osteoarthritis, unspecified site; M54.9 Dorsalgia, unspecified; G89.29 Other chronic pain; F90.9 Attention-deficit hyperactivity disorder, unspecified type; F41.9 Anxiety disorder, unspecified; Z87.19 Personal history of other diseases of the digestive system; Z91.19 Patient's noncompliance with other medical treatment and regimen; Z77.22 Contact with and (suspected) exposure to environmental tobacco smoke (acute) (chronic); Z79.899 Other long term (current) drug therapy; Z88.5 Allergy status to narcotic agent
CPT/HCPCS: 36415; 71045; 80053; 81000; 83605; 83615; 84145; 85025; 85610; 85730; 86141; 87040; 87077; 87088; 87635; 87804

== ENCOUNTER 2019-10-26 18:07 | Emergency (ER) | payer MEDICARE, MEDICAID ==
[~2019-10-26] VITALS: Ht 162 cm; Wt 61.0 kg
--- OUTSIDE RECORDS SUMMARY | 2019-10-26 18:12 | XMS REPORT ---
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 Signs No Information Interventions No Information Plan of Treatment No Information Goals No Information Social History No Information Functional Status No Information Mental Status No Information Encounters Encounter Normalized Encounter Encounter Diagnosis Care Provi mary jo Organization Date Type 08-20-2019 Emergency department no information [facility] [address] - patient visit (no phone) [facility] 08-20-2019 [facility] (no phone) (no phone) [facility] (no phone) [facility] (no phone) 11-26-2018 Emergency department no information no name no organization name - patient visit 11-26-2018 05-15-2018 Emergency department no information no name no organization name - patient visit 05-15-2018 04-23-2018 Emergency department no information no name no organization name - patient visit 04-23-2018 12-19-2017 Emergency department no information no name no organization name - patient visit 12-19-2017 09-20-2017 Emergency department no information no name no organization name - patient visit 09-20-2017 03-27-2017 Emergency department no information no name no organization name - patient visit 03-27-2017 01-10-2017 Emergency department no information no name no organization name - patient visit 01-10-2017 12-05-2016 Emergency department no information no name no organization name patient visit 10-07-2016 Emergency department no information no name no organization name patient visit 09-06-2016 Emergency department no information no name no organization name - patient visit 09-06-2016 09-01-2016 Emergency department no information no name no organization name - patient visit 09-02-2016 05-08-2016 Emergency department no information no name no organization name - patient visit 05-08-2016 02-26-2016 Emergency department no information no name no organization name - patient visit 02-26-2016 02-19-2016 Emergency department no information no name no organization name - patient visit 02-20-2016 01-18-2016 Emergency department no information no name no organization name - patient visit 01-18-2016 11-09-2015 Emergency department no information no name no organization name - patient visit 11-09-2015 10-22-2015 Emergency department no information no name no organization name - patient visit 10-22-2015 08-26-2015 Emergency department no information no name no organization name - patient visit 08-26-2015 08-25-2015 Emergency department no information no name no organization name - patient visit 08-26-2015 08-15-2015 Emergency department no information no name no organization name - patient visit 08-15-2015 05-05-2015 Emergency department no information no name no organization name - patient visit 05-05-2015 04-26-2015 Emergency department no information no name no organization name - patient visit 04-26-2015 01-25-2015 Emergency department no information no name no organization name - patient visit 01-25-2015 10-16-2014 Emergency department no information no name no organization name - patient visit 10-16-2014 08-12-2013 Emergency department no information no name no organization name - patient visit 08-12-2013 03-10-2013 Emergency department no information no name no organization name - patient visit 03-10-2013 12-05-2016 Evaluation and no information no name no organ ization name - management of 12-06-2016 inpatient 10-07-2016 Evaluation and no information no name no organ ization name - management of 10-09-2016 inpatient 08-16-2015 Evaluation and no information no name no organ ization name - management of 08-18-2015 inpatient 12-19-2017 Patient encounter no information no name no or ganization name 09-20-2017 Patient encounter no information no name no or ganization name 03-27-2017 Patient encounter no information no name no or ganization name 08-20-2019 Patient encounter no information PJ JOHNSON (n o [facility] [address] procedure phone) [facility] (no phone) 06-24-2019 Patient encounter no information CORETTA MCCRAY DO (no [facility] [address] - procedure phone) [facility] 06-24-2019 (no phone) 06-17-2019 Patient encounter no information CORETTA MCCRAY DO (no [facility] [address] procedure phone) [facility] (no phone) 11-26-2018 Patient encounter no information no name no or ganization name procedure 07-19-2018 Patient encounter no information no name no or ganization name - procedure 07-20-2018 05-15-2018 Patient encounter no information no name no or ganization name procedure 12-04-2017 Patient encounter no information no name no or ganization name - procedure 12-05-2017 12-05-2016 Patient encounter no information no name no or ganization name - procedure 12-06-2016 10-19-2016 Patient encounter no information no name no or ganization name procedure 10-07-2016 Patient encounter no information no name no or ganization name - procedure 10-09-2016 10-03-2016 Patient encounter no information no name no or ganization name procedure 10-02-2016 Patient encounter no information no name no or ganization name procedure 09-27-2016 Patient encounter no information no name no or ganization name procedure 09-06-2016 Patient encounter no information no name no or ganization name procedure 09-01-2016 Patient encounter no information no name no or ganization name procedure 05-08-2016 Patient encounter no information no name no or ganization name procedure 02-08-2016 Patient encounter no information no name no or ganization name procedure 03-03-2015 Patient encounter no information no name no or ganization name procedure 02-12-2015 Patient encounter no information no name no or ganization name procedure 02-05-2015 Patient encounter no information no name no or ganization name procedure 12-21-2014 Patient encounter no information no name no or ganization name procedure 12-02-2014 Patient encounter no information no name no or ganization name procedure 09-21-2014 Patient encounter no information no name no or ganization name - procedure 12-20-2014 07-14-2014 Patient encounter no information no name no or ganization name procedure 05-20-2014 Patient encounter no information no name no or ganization name procedure 12-29-2013 Patient encounter no information no name no or ganization name procedure 03-03-2013 Patient encounter no information no name no or ganization name procedure 02-12-2013 Patient encounter no information no name no or ganization name procedure 06-18-2019 no information Encounter for other no name no organization name preprocedural examination no information Pre-procedural no name no organization name laboratory examination no information Pre-operative no name no organization name cardiovascular examination Medical Equipment No Information Payers Normalized Payer Value Medicare no information Summary Purpose eClinicalWorks Submission Additional Source Comments This clinical document has been generated using [employer] software that has been certified by the Office of the National Coordinator for Health Information Technology (ONC 15.99.04.3023.Diam.31.00.0.048700) and the National Committee for [employer]itor (NCQA, as an eMeasure certified technology). FOR RECORDS PERTAINING TO PATIENTS WHO ARE OR HAVE BEEN ENROLLED IN A CHEMICAL D EPENDENCY/SUBSTANCE ABUSE PROGRAM, SOME INFORMATION MAY BE OMITTED. This clinica l summary was aggregated from multiple sources. Caution should be exercised in using it in the provision of clinical care. This summary normalizes information from multiple sources, and as a consequence, information in this document may ma terially change the coding, format and clinical context of patient data. In luly tion, data may be omitted in some cases. CLINICAL DECISIONS SHOULD BE BASED ON T HE PRIMARY CLINICAL RECORDS. [employer] provides no warranty or guara ntee of the accuracy or completeness of information in this document.The followi ng information is based on time limited clinical information UNRECOGNIZED CONTENT PROVIDED BELOW FOR UNRECOGNIZED SECTION REASON FOR VISIT [facility]
--- OUTSIDE RECORDS SUMMARY | 2019-10-26 18:13 | XMS REPORT | Clinical Summary ---
Author Author [facility] Organization [facility] Address Unknown Phone Unavailable Care Team Providers Care Custodial Foreman Name Role Phone Jose Feliciano RN Unavailable Francis Hutson MD Unavailable Source Comments Some departments are not documenting in the electronic medical record. If you d o not see the information that you expected, contact Release of Information in [facility] [employer] Information Management department at [phone] for further assistan ce in locating additional records.[facility] Allergies Not on File Medications Not on [...] Health Maintenance Due Date Last Done Comments HIV SCREENING 1978 DTAP/TDAP VACCINES (1 - 1981 Tdap) HEPATITIS C SCREENING 1981 PHYSICAL (COMPREHENSIVE) 1981 EXAM CERVICAL CANCER SCREENING 01/29/1984 BREAST CANCER SCREENING 2003 COLORECTAL CANCER 2013 SCREENING SHINGLES RECOMBINANT 2013 VACCINE (1 of 2) INFLUENZA VACCINE 01/22/2020 Results Not on filefrom Last 3 Months Advance Directives Patient [employer] Supervisor Explanation Type Date Recorded Advance 09/29/2015 10:04 AM Directive/DPOA
--- OUTSIDE RECORDS SUMMARY | 2019-10-26 18:14 | XMS REPORT | Continuity of Care Document ---
Author Organization Unknown Address Unknown Phone Unavailable Allergies Active Description Code Type Severity Reaction Onset Reported/Identified Relationship to Patient Clinical Status Yes codeine Drug Allergy N/A N/A 11/09/2008 Yes codeine [id number] Drug Allergy Unknown N/A 10/07/2016 Yes fentanyl [id number] Drug Allergy Unknown PATIENT REQUES 05/15/2018 Medications There is no data. Problems Date Dx Coded Attending Type Code Diagnosis Diagnosed By 07/30/2008 MIKE LEWIS DO 112.0 CANDIDIASIS OF MOUTH 07/30/2008 MIKE LEWIS DO 496 CHRONIC AIRWAY OBSTRUCTION NOT ELSEWHERE CLASSIFIED 07/30/2008 MIKE LEWIS DO 716.90 UNSPECIFIED ARTHROPATHY SITE UNSPECIFIED 07/30/2008 MIKE LEWIS DO 729.1 MYALGIA AND MYOSITIS UNSPECIFIED 08/08/2008 IMKE LEWIS DO 242.90 THYROTOXICOSIS WITHOUT GOITER OR [...] 491.22 08/11/2009 Ot V58.69 08/06/2012 Ot 840.9 SPRA IN SHOULDER/ARM NOS 08/06/2012 Ot 959.2 SHLD R/UPPER ARM INJ NOS 08/06/2012 Ot E000.8 OTH ER EXTERNAL CAUSE STATUS 08/06/2012 Ot E016.1 ACT IVITIES INVOLVING GARDENING AND LANDS 08/06/2012 Ot E849.0 ACC IDENT IN HOME 08/06/2012 Ot E928.9 ACC IDENT NOS 08/07/2012 Ot 719.41 LUZ MARINA NT PAIN-SHLDER 08/07/2012 Ot 840.9 SPRA IN SHOULDER/ARM NOS 08/07/2012 Ot E000.8 OTH ER EXTERNAL CAUSE STATUS 08/07/2012 Ot E849.0 ACC IDENT IN HOME 08/07/2012 Ot E928.9 ACC IDENT NOS 03/10/2013 ANITA WASHINGTON, GOLD Baird Ot [...] NEC 08/12/2013 GOLD HOWARD MD Ot V06.1 [id number], COMBINED [ 06/16/2014 MAYCOL GUERRA MD Ot 722.5 2 06/16/2014 MAYCOL GUERRA MD Ot 722.8 3 06/16/2014 MAYCOL GUERRA MD Ot V72.6 3 06/16/2014 MAYCOL GUERRA MD Ot V72.8 1 06/16/2014 MAYCOL GUERRA MD Ot V74.8 06/18/2014 MAYCOL GUERRA MD Ot 722.5 2 06/18/2014 MAYCOL GUERRA MD Ot 722.8 3 06/18/2014 MAYCOL GUERRA MD Ot V72.6 3 06/18/2014 MAYCOL GUERRA MD Ot V72.8 1 06/18/2014 MAYCOL GUERRA MD Ot V74.8 08/17/2014 MAYCOL GUERRA MD Ot 722.5 2 08/17/2014 MAYCOL GUERRA MD Ot 722.8 3 08/17/2014 MAYCOL GUERRA MD Ot V72.6 3 08/17/2014 MAYCOL GUERRA MD Ot V74.8 09/11/2014 AMYCOL GUERRA MD Ot 722.5 2 09/11/2014 MAYCOL GUERRA MD Ot 722.8 3 09/11/2014 MAYCOL GUERRA MD Ot V72.6 3 09/11/2014 MAYCOL GUERRA MD Ot V74.8 09/18/2014 Ot 789.01 09/18/2014 Ot 789.01 09/18/2014 Ot 722.52 09/18/2014 KATHY WASHINGTON, LORENZO Crandall Ot 401. 9 09/18/2014 KATHY WASHINGTON, LORENZO Crandall Ot 786. 05 09/18/2014 KATHY WASHINGTON, LORENZO Crandall Ot 786. 50 09/18/2014 KATHY WASHINGTON, LORENZO Crandall Ot 401. 9 09/18/2014 KATHY WASHINGTON, LORENZO Crandall Ot 786. 50 09/18/2014 MARILEE WASHINGTON, CARLOS Salomon Ot 724.0 2 09/18/2014 MAYCOL GUERRA MD Ot 722.5 2 09/18/2014 MAYCOL GUERRA MD Ot 722.8 3 09/18/2014 MAYCOL GUERRA MD Ot V72.6 3 09/18/2014 MAYCOL GUERRA MD Ot V72.8 1 09/18/2014 MAYCOL GUERRA MD Ot V74.8 09/18/2014 MAYCOL GUERRA MD Ot 722.5 2 09/18/2014 MAYCOL GUERRA MD Ot 722.8 3 09/18/2014 MAYCOL GUERRA MD Ot V72.6 3 09/18/2014 MAYCOL GUERRA MD Ot V74.8 09/23/2014 PENELOPE COLLAZO Ot 070.70 09/23/2014 PENELOPE COLLAZO Ot 305.1 09/23/2014 NAYAN-LUCINDA PA, PENELOPE K Ot 401.9 09/23/2014 SPICER-LUCINDA PA, PENELOPE K Ot 496 09/23/2014 SPICER-LUCINDA PA, PENELOPE Sandy Ot 785.1 09/28/2014 SPICER-LUCINDA PA, PENELOPE Sandy Ot 070.70 09/28/2014 SPICER-LUCINDA PA, PENELOPE Sandy Ot 305.1 09/28/2014 SPICER-LUCINDA PA, PENELOPE K Ot 401.9 09/28/2014 SPICER-LUCINDA PA, PENELOPE K Ot 496 09/28/2014 SPICER-LUCINDA PA, PENELOPE Sandy Ot 785.1 10/16/2014 JESS WASHINGTON, AROLDO Salomon Ot 840.9 SPRAIN SHOULDER/ARM NOS 10/16/2014 JESS WASHINGTON, AROLDO Salomon Ot 959.2 SHLDR/UPPER ARM INJ NOS 10/16/2014 JESS WASHINGTON, AROLDO Salomon Ot E000.8 OTHER EXTERNAL CAUSE STATUS 10/16/2014 JESS WASHINGTON, AROLDO Salomon Ot E849.0 ACCIDENT IN HOME 10/16/2014 AROLDO MERCADO MD Ot E880.9 FALL ON STAIR/STEP NEC 11/25/2014 NAYAN-LUCINDA PA, PENELOPE Sandy Ot 070.70 11/25/2014 SPICER-LUCINDA PA, PENELOPE Sandy Ot 305.1 11/25/2014 SPICER-LUCINDA PA, PENELOPE Sandy Ot 401.9 11/25/2014 SPICER-LUCINDA PA, PENELOPE Sandy Ot 496 11/25/2014 SPICER-LUCINDA PA, PENELOPE Sandy Ot 785.1 12/01/2014 SPICER-LUCINDA PA, PENELOPE K Ot 070.70 12/01/2014 SPICER-LUCINDA PA, PENELOPE K Ot 305.1 12/01/2014 SPICER-LUCINDA PA, PENELOPE K Ot 401.9 12/01/2014 SPICER-LUCINDA PA, PENELOPE K Ot 496 12/01/2014 SPICER-LUCINDA PA, PENELOPE Sandy Ot 785.1 12/20/2014 SPICER-LUCINDA PA, PENELOPE K Ot 070.70 UNSPECIFIED VIRAL HEPATITIS C WITHOUT HE 12/20/2014 SPICERPENELOPE TAPIA Ot 305.1 TOBACCO USE DISORDER 12/20/2014 PENELOPE COLLAZO Ot 401.9 HYPERTENSION NOS 12/20/2014 PENELOPE COLLAZO Ot 496 CHR AIRWAY OBSTRUCT NEC 12/20/2014 PENELOPE COLLAZO Ot 785.1 PALPITATIONS 12/22/2014 TEQUILA MARINO RINKU Mota Ot 715.35 12/29/2014 Ot 070.70 12/29/2014 Ot 491.20 12/29/2014 TEQUILA MARINO RINKU Nakul Ot 715.35 01/12/2015 Ot 070.70 01/12/2015 Ot 491.20 01/19/2015 IVY HARDY 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 RESIDENTIAL Ot 070.70 UNSPECIFIED VIRAL HEPATITIS C WITHOUT HE 01/19/2015 IVY HARDY 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 RESIDENTIAL Ot 530.81 ESOPHAGEAL REFLUX 01/19/2015 IVY HARDY 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 RESIDENTIAL Ot 573 .8 LIVER DISORDERS NEC 01/19/2015 IVY HARDY 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 RESIDENTIAL Ot 780.60 FEVER, UNSPECIFIED 01/19/2015 IVY HARDY 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 RESIDENTIAL Ot 789.09 ABDOMINAL PAIN, OTHER SPECIFIED SITE 01/19/2015 IVY HARDY 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 RESIDENTIAL Ot V58.69 OTH MED,LT,CURRENT USE 01/25/2015 ANITA WASHINGTON, GOLD Baird Ot B19.20 UNSPECIFIED VIRAL HEPATITIS C WITHOUT HE 01/25/2015 ANITA WASHINGTON, GOLD Baird Ot R10.84 GENERALIZED ABDOMINAL PAIN 01/26/2015 Ot 070.70 01/26/2015 Ot 491.20 03/05/2015 RINKU MANDEL DO Ot K76.9 03/10/2015 GELLENDER RINKU MARINO Ot K76.9 03/31/2015 GELLENDER RINKU MARINO Ot K74.60 04/06/2015 GELLENDER RINKU MARINO Ot K74.60 04/26/2015 JESS WASHINGTON, AROLDO Salomon Ot F10.10 ALCOHOL ABUSE, UNCOMPLICATED 04/26/2015 AROLDO [...] AROLDO MERCADO MD Ot Y92.002 BATHRM OF [facility] NON-INSTITUT RESDNCE SNGL 04/26/2015 AROLDO MERCADO MD, Ot Y99.8 OTHER EXTERNAL CAUSE STATUS 05/05/2015 [...] OBSTRUCTIVE PULMONARY DISEASE, U 08/17/2015 RINKU MANDEL DO, Ot J45.909 UNSPECIFIED ASTHMA, UNCOMPLICATED 08/17/2015 RINKU MANDEL DO Ot K21.9 GASTRO-ESOPHAGEAL REFLUX DISEASE WITHOUT 08/17/2015 RINKU MANDEL DO Ot K74.60 UNSPECIFIED CIRRHOSIS OF LIVER 08/17/2015 RINKU MANDEL DO Ot K92.0 HEMATEMESIS 08/17/2015 RINKU MANDEL DO Ot M54.5 LOW BACK PAIN 08/17/2015 RINKU MANDEL DO Ot M79.7 FIBROMYALGIA 08/17/2015 RINKU MANDEL DO Ot Z91.19 [facility] 08/18/2015 RINKU MANDEL DO [...] CHRONIC OBSTRUCTIVE PULMONARY DISEASE, U 08/18/2015 RINKU MNADEL DO Ot J45.909 UNSPECIFIED ASTHMA, UNCOMPLICATED 08/18/2015 RINKU MANDEL DO Ot K21.9 GASTRO-ESOPHAGEAL REFLUX DISEASE WITHOUT 08/18/[facility] DO Ot K29.71 GASTRITIS, UNSPECIFIED, WITH BLEEDING 08/18/2015 RINKU MANDEL DO Ot K74.60 UNSPECIFIED CIRRHOSIS OF LIVER 08/18/2015 RINKU MANDEL DO Ot M54.5 LOW BACK PAIN 08/18/2015 RINKU MANDEL DO Ot M79.7 FIBROMYALGIA 08/18/2015 RINKU MANDEL DO Ot Z91.19 PATIENT'S NONCOMPLIANCE [facility] 08/25/2015 Ot 789.01 ABD OMINAL PAIN, RIGHT UPPER QUADRANT 08/25/2015 Ot 789.01 ABD OMINAL PAIN, RIGHT UPPER QUADRANT 08/25/2015 Ot 722.52 LUM B/LUMBOSAC DISC DEGEN 08/25/2015 KATHY WASHINGTON, LORENZO Crandall Ot 401. 9 HYPERTENSION NOS 08/25/2015 KATHY WASHINGTON, LORENZO Crandall Ot 786. 05 SHORTNESS OF BREATH 08/25/2015 LORENZO CHAVEZ MD Ot 786. 50 CHEST PAIN NOS 08/25/2015 LORENZO CHAVEZ MD Ot 401. 9 HYPERTENSION NOS 08/25/2015 LORENZO CHAVEZ MD Ot 786. 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 08/25/2015 MAYCOL GUERRA MD Ot V72.6 3 PRE-PROCEDURAL LABORATORY EXAMINATION 08/25/2015 MAYCOL GUERRA MD [...] COLLAZO Ot 785.1 PALPITATIONS 08/25/2015 Ot 070.70 UNS PECIFIED VIRAL HEPATITIS C WITHOUT HE 08/25/2015 Ot 491.20 OBS TR CHRONIC BRONCHITIS, W/O EXACERBATI 08/25/2015 RINKU MANDEL DO Ot R93.5 ABN FINDINGS ON DX IMAGING OF ABD REGION 08/25/2015 RINKU MANDEL DO Ot K76.9 LIVER DISEASE, UNSPECIFIED 08/25/2015 TEQUILA MARINO RINKU Mota Ot K74.60 UNSPECIFIED CIRRHOSIS OF LIVER 08/26/2015 GOLD HOWARD MD Ot B19.20 UNSPECIFIED [...] MARTIN ACUNA Ot Z91.19 [facility]COMPL[facility] 08/27/2015 MARTIN ACUNA Ot F12.10 CANNABIS ABUSE, UNCOMPLICATED 08/27/2015 MARTIN ACUNA Ot F17.210 NICOTINE DEPENDENCE, CIGARETTES, UNCOMPL 08/27/2015 MARTIN ACUNA Ot F41.9 ANXIETY DISORDER, UNSPECIFIED 08/27/2015 MARTIN ACUNA Ot K29.70 GASTRITIS, UNSPECIFIED, WITHOUT BLEEDING 08/27/2015 MARTIN ACUNA Ot K74.60 UNSPECIFIED CIRRHOSIS OF LIVER 08/27/2015 MARTIN ACUNA Ot R59.0 LOCALIZED ENLARGED LYMPH NODES 08/27/2015 MARTIN ACUNA Ot Z91.19 PATIENT'S NONCOMPLIANCE [facility] 09/16/2015 GOLD HOWARD MD [...] MERCADO MD Ot R10.13 EPIGASTRIC PAIN 10/22/2015 JESS WASHINGTON, AROLDO Salomon Ot R11.2 NAUSEA WITH VOMITING, UNSPECIFIED 11/09/2015 IVY HARDY 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 RESIDENTIAL Ot B19.20 UNSPECIFIED VIRAL HEPATITIS C WITHOUT HE 11/09/2015 IVY HARDY 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 RESIDENTIAL Ot 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 11/09/2015 IVY HARDY 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 RESIDENTIAL Ot K70.30 ALCOHOLIC CIRRHOSIS OF LIVER WITHOUT ASC 11/09/2015 IVY HARDY 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 RESIDENTIAL Ot R10.13 EPIGASTRIC PAIN 11/09/2015 IVY HARDY 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 RESIDENTIAL Ot Z91.19 PATIENT'S NONCOMPLIANCE [facility] 11/10/2015 IVY HARDY 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 RESIDENTIAL Ot B19.20 UNSPECIFIED VIRAL HEPATITIS C WITHOUT HE 11/10/2015 IVY HARDY 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 RESIDENTIAL Ot 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 11/10/2015 IVY HARDY 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 RESIDENTIAL Ot K70.30 ALCOHOLIC CIRRHOSIS OF LIVER WITHOUT ASC 11/10/2015 IVY HARDY APRN Ot R10.13 EPIGASTRIC PAIN 11/10/2015 IVY HARDY APRN Ot Z91.19 PATIENT'S NONCOMPLIANCE [facility] 11/10/2015 IVY HARDY 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 RESIDENTIAL Ot B19.20 UNSPECIFIED VIRAL HEPATITIS C WITHOUT HE 11/10/2015 IVY HARDY 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 RESIDENTIAL Ot 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 11/10/2015 IVY HARDY 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 RESIDENTIAL Ot K70.30 ALCOHOLIC CIRRHOSIS OF LIVER WITHOUT ASC 11/10/2015 IVY HARDY 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 RESIDENTIAL Ot R10.13 EPIGASTRIC PAIN 11/10/2015 IVY HARDY 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 RESIDENTIAL Ot Z91.19 PAT[facility]'S NONCOMPLIANCE [facility] 11/22/2015 GOYO PARK DO Ot K92.0 HEMATEMESIS 11/22/2015 GOYO PARK DO Ot Z53.21 PROC/TRTMT NOT CRD OUT D/T PT LV BEF SEE 11/24/2015 Ot 789.01 ABD OMINAL PAIN, RIGHT UPPER QUADRANT 11/24/2015 Ot 789.01 ABD OMINAL PAIN, RIGHT UPPER QUADRANT 11/24/2015 Ot 722.52 LUM B/LUMBOSAC DISC DEGEN 11/24/2015 LORENZO CHAVEZ MD Ot 401. 9 HYPERTENSION NOS 11/24/2015 LORENZO CHAVEZ MD Ot 786. 05 SHORTNESS OF BREATH 11/24/2015 LORENZO CHAVEZ MD Ot 786. 50 CHEST PAIN NOS 11/24/2015 LORENZO CHAVEZ MD Ot 401. 9 HYPERTENSION NOS 11/24/2015 LORENZO CHAVEZ MD Ot 786. 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 11/24/2015 MAYCOL GUERRA MD Ot V72.6 3 PRE-PROCEDURAL LABORATORY EXAMINATION 11/24/2015 MAYCOL GUERRA MD [...] COLLAZO Ot 785.1 PALPITATIONS 11/24/2015 Ot 070.70 UNS PECIFIED VIRAL HEPATITIS C WITHOUT HE 11/24/2015 Ot 491.20 OBS TR CHRONIC BRONCHITIS, W/O EXACERBATI 11/24/2015 TEQUILA MARINO, RINKU Mota Ot R93.5 ABN FINDINGS ON DX IMAGING OF ABD REGION 11/24/2015 TEQUILA MARINO, RINKU Mota Ot K76.9 LIVER DISEASE, UNSPECIFIED 11/24/2015 TEQUILA MARINO, RINKU Mota Ot K74.60 UNSPECIFIED CIRRHOSIS OF LIVER 11/25/2015 TEQUILA MARINO, RINKU Mota Ot S19.9XXA UNSPECIFIED INJURY OF NECK, INITIAL ENCO 11/25/2015 TEQUILA MARINO, RINKU Mota Ot W19.XXXA UNSPECIFIED FALL, INITIAL ENCOUNTER 11/25/2015 TEQUILA MARINO, RINKU Mota Ot Y99.8 OTHER EXTERNAL CAUSE STATUS 12/03/2015 TEQUILA MARINO, RINKU Mota Ot S19.9XXA UNSPECIFIED INJURY OF NECK, INITIAL ENCO 12/03/2015 TEQUILA MARINO, RINKU Mota Ot W19.XXXA UNSPECIFIED [...] Ot Y99.8 OTHER EXTERNAL CAUSE STATUS 01/18/2016 JESS WASHINGTON, AROLDO Salomon Ot E86.0 DEHYDRATION 01/18/2016 JESS WASHINGTON, AROLDO Salomon Ot F17.210 NICOTINE DEPENDENCE, CIGARETTES, UNCOMPL 01/18/2016 JESS WASHINGTON, AROLDO Salomon Ot F41.9 ANXIETY DISORDER, UNSPECIFIED 01/18/2016 AROLDO MERCADO MD Ot J40 BRONCHITIS, NOT SPECIFIED ACUTE OR CH 01/18/2016 AROLDO MERCADO MD Ot R00.0 TACHYCARDIA, UNSPECIFIED 01/18/2016 AROLDO MERCADO MD Ot R11.2 NAUSEA WITH VOMITING, UNSPECIFIED 01/18/2016 AROLDO MERCADO MD Ot R53.1 WEAKNESS 01/18/2016 AROLDO MERCADO MD Ot R91.8 OTHER NONSPECIFIC ABNORMAL FINDING OF CORI 01/18/2016 AROLDO MERCADO MD Ot 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 01/19/2016 AROLDO MERCADO MD [...] 01/19/2016 AROLDO MERCADO MD Ot 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 01/25/2016 AROLDO MERCADO MD [...] 01/25/2016 AROLDO MERCADO MD Ot Z79.899 OTHER USP (CURRENT) DRUG THERAPY 01/25/2016 Ot 789.01 ABD OMINAL PAIN, RIGHT UPPER QUADRANT 01/25/2016 Ot 789.01 ABD OMINAL PAIN, RIGHT UPPER QUADRANT 01/25/2016 Ot 722.52 LUM B/LUMBOSAC DISC DEGEN 01/25/2016 LORENZO CHAVEZ MD Ot 401. 9 HYPERTENSION NOS 01/25/2016 LORENZO CHAVEZ MD Ot 786. 05 SHORTNESS OF BREATH 01/25/2016 LORENZO CHAVEZ MD Ot 786. 50 CHEST PAIN NOS 01/25/2016 LORENZO CHAVEZ MD Ot 401. 9 HYPERTENSION NOS 01/25/2016 LORENZO CHAVEZ MD Ot 786. 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 01/25/2016 MAYCOL GUERRA MD Ot V72.6 3 PRE-PROCEDURAL LABORATORY EXAMINATION 01/25/2016 MAYCOL GUERRA MD [...] COLLAZO Ot 785.1 PALPITATIONS 01/25/2016 Ot 070.70 UNS PECIFIED VIRAL HEPATITIS C WITHOUT HE 01/25/2016 Ot 491.20 OBS TR CHRONIC BRONCHITIS, W/O EXACERBATI 01/25/2016 TEQUILA MARINORINKU Ot R93.5 ABN FINDINGS ON DX IMAGING OF ABD REGION 01/25/2016 TEQUILA MARINORINKU Ot K76.9 LIVER DISEASE, UNSPECIFIED 01/25/2016 TEQUILA MARINORINKU Ot K74.60 UNSPECIFIED CIRRHOSIS OF LIVER 01/25/2016 TEQUILA MARINORINKU Ot S19.9XXA UNSPECIFIED INJURY OF NECK, INITIAL ENCO 01/25/2016 TEQUILA MARINORINKU Ot W19.XXXA UNSPECIFIED FALL, INITIAL ENCOUNTER 01/25/2016 TEQUILA MARINORINKU Ot Y99.8 OTHER EXTERNAL CAUSE STATUS 02/09/2016 TEQUILA MARINORINKU Ot K74.60 UNSPECIFIED CIRRHOSIS OF LIVER 02/09/2016 SHEREENELADIA MARINORINKU Ot R91.8 OTHER NONSPECIFIC ABNORMAL FINDING OF CORI 02/19/2016 VU DO, DAGOBERTO K Ot F12.10 CANNABIS ABUSE, UNCOMPLICATED 02/19/2016 VU , DAGOBERTO K Ot F13.10 SEDATIVE, HYPNOTIC OR ANXIOLYTIC ABUSE, 02/19/2016 VU DAGOBERTO K Ot N39.0 URINARY TRACT INFECTION, SITE NOT SPECIF 02/19/2016 VU DO DAGOBERTO K Ot N76.0 ACUTE VAGINITIS 02/19/2016 VU MARINO DAGOBERTO K Ot R30.0 DYSURIA 02/21/2016 VU MARINO DAGOBERTO K Ot F12.10 CANNABIS ABUSE, UNCOMPLICATED 02/21/2016 VU , DAGOBERTO K Ot F13.10 SEDATIVE, HYPNOTIC OR ANXIOLYTIC ABUSE, 02/21/2016 VU DAGOBERTO K Ot N39.0 URINARY TRACT INFECTION, SITE NOT SPECIF 02/21/2016 VU DAGOBERTO K Ot N76.0 ACUTE VAGINITIS 02/21/2016 VU , DAGOBERTO K Ot R30.0 DYSURIA 02/26/2016 PJ TREJO Ot F17.210 NICOTINE DEPENDENCE, CIGARETTES, UNCOMPL 02/26/2016 PJ TREJO Ot I10 ESSENTIAL (PRIMARY) HYPERTENSION 02/26/2016 MAYA, PJ MOTION PICTURE EQUIPMENT SUPERVISOR Ot M25.512 PAIN IN LEFT SHOULDER 02/26/2016 MAYA, PJ MOTION PICTURE EQUIPMENT SUPERVISOR Ot M79.1 MYALGIA 02/26/2016 MAYA, PJ MOTION PICTURE EQUIPMENT SUPERVISOR Ot R06.00 DYSPNEA, UNSPECIFIED 02/26/2016 MAYA, PJ MOTION PICTURE EQUIPMENT SUPERVISOR Ot R07.89 OTHER CHEST PAIN 02/26/2016 MAYA, PJ MOTION PICTURE EQUIPMENT SUPERVISOR Ot Z79.899 OTHER USP (CURRENT) DRUG THERAPY 02/28/2016 MAYA, PJ MOTION PICTURE EQUIPMENT SUPERVISOR Ot F17.210 NICOTINE DEPENDENCE, CIGARETTES, UNCOMPL 02/28/2016 MAYA, PJ MOTION PICTURE EQUIPMENT SUPERVISOR Ot I10 ESSENTIAL (PRIMARY) HYPERTENSION 02/28/2016 MAYA, PJ MOTION PICTURE EQUIPMENT SUPERVISOR Ot M25.512 PAIN IN LEFT SHOULDER 02/28/2016 MAYAPJ [place] MOTION PICTURE EQUIPMENT SUPERVISOR Ot M79.1 MYALGIA 02/28/2016 MAYA, PJ MOTION PICTURE EQUIPMENT SUPERVISOR Ot R06.00 DYSPNEA, UNSPECIFIED 02/28/2016 MAYA, PJ MOTION PICTURE EQUIPMENT SUPERVISOR Ot R07.89 OTHER CHEST PAIN 02/28/2016 MAYA, PJ MOTION PICTURE EQUIPMENT SUPERVISOR Ot 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 02/29/2016 RINKU MANDEL DO Ot K74.60 UNSPECIFIED CIRRHOSIS OF LIVER 02/29/2016 RINKU MANDEL DO Ot R91.8 OTHER NONSPECIFIC ABNORMAL FINDING OF CORI 03/13/2016 RINKU MANDEL DO Ot K74.60 UNSPECIFIED CIRRHOSIS OF LIVER 03/13/2016 RINKU MANDEL DO Ot R91.8 OTHER NONSPECIFIC ABNORMAL FINDING OF CORI 05/08/2016 PJ TREJO MOTION PICTURE EQUIPMENT SUPERVISOR Ot B19.20 UNSPECIFIED VIRAL HEPATITIS C WITHOUT HE 05/08/2016 MAYA, PJ MOTION PICTURE EQUIPMENT SUPERVISOR Ot F17.210 NICOTINE DEPENDENCE, CIGARETTES, UNCOMPL 05/08/2016 MAYA, PJ MOTION PICTURE EQUIPMENT SUPERVISOR Ot I10 ESSENTIAL (PRIMARY) HYPERTENSION 05/08/2016 MAYA PJ MOTION PICTURE EQUIPMENT SUPERVISOR Ot J44.9 CHRONIC OBSTRUCTIVE PULMONARY DISEASE, U 05/08/2016 MAYA PJ MOTION PICTURE EQUIPMENT SUPERVISOR Ot R10.13 EPIGASTRIC PAIN 05/08/2016 MAYA PJ MOTION PICTURE EQUIPMENT SUPERVISOR Ot R11.2 NAUSEA WITH VOMITING, UNSPECIFIED 05/08/2016 PJ TREJO MOTION PICTURE EQUIPMENT SUPERVISOR Ot S39.012A STRAIN OF MUSCLE, FASCIA AND TENDON OF L 05/08/2016 MAYA, PJ MOTION PICTURE EQUIPMENT SUPERVISOR Ot X50.9XXA OTHER AND UNSPECIFIED OVREXRTN OR STRNOU 05/08/2016 PJ TREJOP Ot Y92.[address] [facility] IN [facility] 05/08/2016 PJ TREJOP Ot Y99.8 OTHER EXTERNAL CAUSE STATUS 05/08/2016 PJ TREJOP Ot Z79.899 OTHER USP (CURRENT) DRUG THERAPY 05/10/2016 PJ TREJOP Ot B19.20 UNSPECIFIED VIRAL HEPATITIS C WITHOUT HE 05/10/2016 PJ TREJOP Ot F17.210 NICOTINE DEPENDENCE, CIGARETTES, UNCOMPL 05/10/2016 MAYA PJ MOTION PICTURE EQUIPMENT SUPERVISOR Ot I10 ESSENTIAL (PRIMARY) HYPERTENSION 05/10/2016 PJ TREJOP Ot J44.9 CHRONIC OBSTRUCTIVE PULMONARY DISEASE, U 05/10/2016 PJ TREJOP Ot R10.13 EPIGASTRIC PAIN 05/10/2016 PJ TREJOP Ot R11.2 NAUSEA WITH VOMITING, UNSPECIFIED 05/10/2016 PJ TREJOP Ot S39.012A STRAIN OF MUSCLE, FASCIA AND TENDON OF L 05/10/2016 PJ TREJOP Ot X50.9XXA OTHER AND UNSPECIFIED OVREXRTN OR STRNOU 05/10/2016 PJ TREJOP Ot Y92.[address] [facility] IN [facility] ([facility] 05/10/2016 PJ TREJOP Ot Y99.8 OTHER EXTERNAL CAUSE STATUS 05/10/2016 PJ TREJOP Ot Z79.899 OTHER USP (CURRENT) DRUG THERAPY 09/01/2016 AROLDO MERCADO MD Ot F17.210 NICOTINE DEPENDENCE, CIGARETTES, UNCOMPL 09/01/2016 AROLDO MERCADO MD Ot I10 ESSENTIAL (PRIMARY) HYPERTENSION 09/01/2016 AROLDO MERCADO MD Ot J44.9 CHRONIC OBSTRUCTIVE PULMONARY DISEASE, U 09/01/2016 AROLDO MERCADO MD Ot K74.60 UNSPECIFIED CIRRHOSIS OF LIVER 09/01/2016 AROLDO MERCADO MD Ot R04.2 HEMOPTYSIS 09/01/2016 AROLDO MERCADO MD Ot S39.012A STRAIN OF MUSCLE, FASCIA AND TENDON OF L 09/01/2016 AROLDO MERCADO MD, Ot X58.XXXA EXPOSURE TO OTHER SPECIFIED FACTORS, INI 09/01/2016 JESS WASHINGTON, AROLDO Salomon Ot Y99.8 OTHER EXTERNAL CAUSE STATUS 09/01/2016 AROLDO MERCADO MD Ot Z79.899 OTHER USP (CURRENT) DRUG THERAPY 09/06/2016 VU DO, DAGOBERTO K Ot B19.20 UNSPECIFIED VIRAL HEPATITIS C WITHOUT HE 09/06/2016 VU DO, DAGOBERTO K Ot F17.210 NICOTINE DEPENDENCE, CIGARETTES, UNCOMPL 09/06/2016 VU DO, DAGOBERTO K Ot G89.29 OTHER CHRONIC PAIN 09/06/2016 VU DO, DAGOBERTO K Ot I10 ESSENTIAL (PRIMARY) HYPERTENSION 09/06/2016 VU DO, DAGOBERTO K Ot J44.9 CHRONIC OBSTRUCTIVE PULMONARY DISEASE, U 09/06/2016 VU DO, DAGOBERTO K Ot K29.21 ALCOHOLIC GASTRITIS WITH BLEEDING 09/06/2016 VU DO, DAGOBERTO K Ot K70.30 ALCOHOLIC CIRRHOSIS OF LIVER WITHOUT ASC 09/06/2016 VU DO, DAGOBERTO K Ot K76.6 PORTAL HYPERTENSION 09/06/2016 VU DO, DAGOBERTO K Ot M54.5 LOW BACK PAIN 09/06/2016 VU DO, DAGOBERTO K Ot R04.2 HEMOPTYSIS 09/06/2016 VU DO DAGOBERTO K Ot Z79.899 OTHER USP (CURRENT) DRUG THERAPY 09/06/2016 VU DO, DAGOBERTO K Ot Z91.19 [facility] 09/12/2016 VU DO DAGOBERTO K Ot B19.20 UNSPECIFIED VIRAL HEPATITIS C WITHOUT HE 09/12/2016 VU DO, DAGOBERTO K Ot F17.210 NICOTINE DEPENDENCE, CIGARETTES, UNCOMPL 09/12/2016 VU DO, DAGOBERTO K Ot G89.29 OTHER CHRONIC PAIN 09/12/2016 VU DO, DAGOBERTO K Ot I10 ESSENTIAL (PRIMARY) HYPERTENSION 09/12/2016 VU DO, DAGOBERTO K Ot J44.9 CHRONIC OBSTRUCTIVE PULMONARY DISEASE, U 09/12/2016 VU DO, DAGOBERTO K Ot K29.21 ALCOHOLIC GASTRITIS WITH BLEEDING 09/12/2016 VU DO, DAGOBERTO K Ot K70.30 ALCOHOLIC CIRRHOSIS OF LIVER WITHOUT ASC 09/12/2016 VU DO, DAGOBERTO K Ot K76.6 PORTAL HYPERTENSION 09/12/2016 DAGOBERTO WOMACK DO Ot M54.5 LOW BACK PAIN 09/12/2016 DAGOBERTO WOMACK DO Ot R04.2 HEMOPTYSIS 09/12/2016 DAGOBERTO WOMACK DO Ot Z79.899 OTHER USP (CURRENT) DRUG THERAPY 09/12/2016 DAGOBERTO WOMACK DO Ot Z91.19 [facility]'S NONCOMPLIANCE [facility] 09/21/2016 AROLDO MERCADO MD [...] OTHER EXTERNAL CAUSE STATUS 09/21/2016 AROLDO MERCADO MD Ot Z79.899 OTHER USP (CURRENT) DRUG THERAPY 09/26/2016 RINKU MANDEL DO Ot Z12.31 ENCNTR SCREEN MAMMOGRAM FOR MALIGNANT NE 09/28/2016 RUBENDER DORINKU Ot Z12.31 ENCNTR SCREEN MAMMOGRAM FOR MALIGNANT NE 10/02/2016 GELLENDER RINKU MARINO Ot N95.0 POSTMENOPAUSAL BLEEDING 10/03/2016 GELLENDER DORINKU Ot Z12.31 ENCNTR SCREEN MAMMOGRAM FOR MALIGNANT NE 10/04/2016 GELLENDER DORINKU Ot Z12.31 ENCNTR SCREEN MAMMOGRAM FOR MALIGNANT NE 10/04/2016 GELLENDER DORINKU Ot Z12.31 ENCNTR SCREEN MAMMOGRAM FOR MALIGNANT NE 10/07/2016 PENELOPE COLLAZO Ot 070.70 UNSPECIFIED VIRAL HEPATITIS C WITHOUT HE 10/07/2016 PENELOPE COLLAZO Ot 305.1 TOBACCO USE DISORDER 10/07/2016 EPNELOPE COLLAZO Ot 401.9 HYPERTENSION NOS 10/07/2016 PENELOPE COLLAZO Ot 496 CHR AIRWAY OBSTRUCT NEC 10/07/2016 PENELOPE COLLAZO Ot 785.1 PALPITATIONS 10/09/2016 GELLENDER DO, RINKU Mota Ot B19.20 UNSPECIFIED VIRAL HEPATITIS C WITHOUT HE 10/09/2016 GELLENDER DO, RINKU Mota Ot F12.10 CANNABIS ABUSE, UNCOMPLICATED 10/09/2016 GELLENDER DO, RINKU Mota Ot F17.210 NICOTINE DEPENDENCE, CIGARETTES, UNCOMPL 10/09/2016 GELLENDER DORINKU Ot I10 ESSENTIAL (PRIMARY) HYPERTENSION 10/09/2016 GELLENDER DO, RINKU Mota Ot J44.9 CHRONIC OBSTRUCTIVE PULMONARY DISEASE, U 10/09/2016 GELLENDER DORINKU Ot K21.9 GASTRO-ESOPHAGEAL REFLUX DISEASE WITHOUT 10/09/2016 GELLENDER DORINKU Ot K59.00 CONSTIPATION, UNSPECIFIED 10/09/2016 GELLENDER DORINKU Ot K74.60 UNSPECIFIED CIRRHOSIS OF LIVER 10/09/2016 GELLENDER DO, RNIKU Mota Ot K82.8 OTHER SPECIFIED DISEASES OF GALLBLADDER 10/09/2016 GELLENDER DORINKU Ot R10.12 LEFT UPPER QUADRANT PAIN 10/09/2016 GELLENDER DORINKU Ot Z91.19 PATIENT'S NONCOMPLIANCE W OT MEDICAL TR 10/25/2016 GELLENDER DORINKU Ot N64.89 OTHER SPECIFIED DISORDERS OF BREAST 10/25/2016 GELLENDER DORINKU Ot R92.8 OT ABN AND INCONCLUSIVE FINDINGS ON DX 10/26/2016 GELLENDER DO, RINKU Mota Ot Z12.31 ENCNTR SCREEN MAMMOGRAM FOR MALIGNANT NE 10/26/2016 GELLENDER DO, RINKU Mota Ot N95.0 POSTMENOPAUSAL BLEEDING 10/31/2016 GELLENDER DO, RINKU Mota Ot Z12.31 ENCNTR SCREEN MAMMOGRAM FOR MALIGNANT NE 11/06/2016 GELLENDER DO, RINKU Mota Ot N95.0 POSTMENOPAUSAL BLEEDING 11/10/2016 GELLENDER DORINKU Ot N64.89 OTHER SPECIFIED DISORDERS OF BREAST 11/10/2016 GELLENDER DO, RINKU Mota Ot R92.8 OT ABN AND INCONCLUSIVE FINDINGS ON DX 11/22/2016 GELLENDER DO, RINKU Mota Ot N64.89 OTHER SPECIFIED DISORDERS OF BREAST 11/22/2016 SHEREENLENDER DO, RINKU Mota Ot R92.8 OTH ABN AND INCONCLUSIVE FINDINGS ON DX 12/06/2016 SHEREENLENDER DO, RINKU Mota Ot B18.2 CHRONIC VIRAL HEPATITIS C 12/06/2016 RUBENDER DO, RINKU Mota Ot F10.20 ALCOHOL DEPENDENCE, UNCOMPLICATED 12/06/2016 GELLENDER DO, RINKU Mota Ot F17.210 NICOTINE DEPENDENCE, CIGARETTES, UNCOMPL 12/06/2016 SHEREENLENDER DO, RINKU Mota Ot I10 ESSENTIAL (PRIMARY) HYPERTENSION 12/06/2016 SHEREENLENDER DO, RINKU Mota Ot J44.9 CHRONIC OBSTRUCTIVE PULMONARY DISEASE, U 12/06/2016 RUBENDER DO, RINKU Mota Ot K76.89 OTHER SPECIFIED DISEASES OF LIVER 12/06/2016 TEQUILA DORINKU Ot R11.2 NAUSEA WITH VOMITING, UNSPECIFIED 12/06/2016 RUBENDER DORINKU Ot R19.7 DIARRHEA, UNSPECIFIED 12/06/2016 SHEREENLENDER DO, RINKU Mota Ot S39.012A STRAIN OF MUSCLE, FASCIA AND TENDON OF L 12/06/2016 TEQUILA DORINKU Ot X50.9XXA OTHER AND UNSPECIFIED OVREXRTN OR STRNOU 12/06/2016 TEQUILA DORINKU Ot Y92.[address] [facility] [address] IN [facility] NON-[facility] (PRIVATE 12/06/2016 TEQUILA MARINO, RINKU Mota Ot Y99.8 OTHER EXTERNAL CAUSE STATUS 12/06/2016 TEQUILA MARINORINKU Ot Z79.899 OTHER USP (CURRENT) DRUG THERAPY 12/06/2016 TEQUILA DORINKU Ot Z91.19 PATIENT'S NONCOMPLIANCE W OT MEDICAL TR 12/06/2016 RUBENDER DORINKU Ot B18.2 CHRONIC VIRAL HEPATITIS C 12/06/2016 SHEREENLENDER DO, RINKU Mota Ot F10.20 ALCOHOL DEPENDENCE, UNCOMPLICATED 12/06/2016 GELLENDER DO, RINKU Mota Ot F17.210 NICOTINE DEPENDENCE, CIGARETTES, UNCOMPL 12/06/2016 TEQUILA DORINKU Ot I10 ESSENTIAL (PRIMARY) HYPERTENSION 12/06/2016 GELLENDER DORINKU Ot J44.9 CHRONIC OBSTRUCTIVE PULMONARY DISEASE, U 12/06/2016 RINKU MANDEL DO Ot K76.89 OTHER SPECIFIED DISEASES OF LIVER 12/06/2016 RINKU MANDEL DO Ot R11.2 NAUSEA WITH VOMITING, UNSPECIFIED 12/06/2016 RINKU MANDEL DO Ot R19.7 DIARRHEA, UNSPECIFIED 12/06/2016 RINKU MANDEL DO Ot S39.012A STRAIN OF MUSCLE, FASCIA AND TENDON OF L 12/06/2016 RINKU MANDEL DO Ot X50.9XXA OTHER AND UNSPECIFIED OVREXRTN OR STRNOU 12/06/2016 RINKU MANDEL DO Ot Y92.[address] IN [facility] NON-[facility] (PRIVATE 12/06/2016 RINKU MANDEL DO Ot Y99.8 OTHER EXTERNAL CAUSE STATUS 12/06/2016 RINKU MANDEL DO Ot Z79.899 OTHER USP (CURRENT) DRUG THERAPY 12/06/2016 RINKU MANDEL DO Ot Z91.19 [facility]COMPL[facility] 01/10/2017 IVY HARDY APRN Ot B19.20 UNSPECIFIED VIRAL HEPATITIS C WITHOUT HE 01/10/2017 IVY HARDY APRN Ot F41 .9 ANXIETY DISORDER, UNSPECIFIED 01/10/2017 IVY HARDY APRN Ot F90 .9 ATTENTION-DEFICIT HYPERACTIVITY DISORDER 01/10/2017 IVY HARDY APRN Ot I10 ESSENTIAL (PRIMARY) HYPERTENSION 01/10/2017 IVY HARDY APRN Ot J44 .9 CHRONIC OBSTRUCTIVE PULMONARY DISEASE, U 01/10/2017 IVY HARDY APRN Ot K21 .9 GASTRO-ESOPHAGEAL REFLUX DISEASE WITHOUT 01/10/2017 IVY HARDY APRN Ot K74.60 UNSPECIFIED CIRRHOSIS OF LIVER 01/10/2017 IVY HARDY APRN Ot R10.13 EPIGASTRIC PAIN 01/10/2017 IVY HARDY APRN Ot Z87.442 PERSONAL HISTORY OF URINARY CALCULI 01/10/2017 IVY HARDY APRN Ot Z90.89 ACQUIRED ABSENCE OF OTHER ORGANS 01/10/2017 IVY HARDY APRN Ot Z91.19 PAT[facility]'S [facility]COMPLIANCE [facility] 01/11/2017 HARDY, PETER J 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 RESIDENTIAL Ot B19.20 UNSPECIFIED VIRAL HEPATITIS C WITHOUT HE 01/11/2017 IVY HARDY APRN Ot F41 .9 ANXIETY DISORDER, UNSPECIFIED 01/11/2017 IVY HARDY APRN Ot F90 .9 ATTENTION-DEFICIT HYPERACTIVITY DISORDER 01/11/2017 IVY HARDY 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 RESIDENTIAL Ot I10 ESSENTIAL (PRIMARY) HYPERTENSION 01/11/2017 IVY HARDY APRN Ot J44 .9 CHRONIC OBSTRUCTIVE PULMONARY DISEASE, U 01/11/2017 IVY HARDY APRN Ot K21 .9 GASTRO-ESOPHAGEAL REFLUX DISEASE WITHOUT 01/11/2017 IVY HARDY APRN Ot K74.60 UNSPECIFIED CIRRHOSIS OF LIVER 01/11/2017 IVY HARDY APRN Ot R10.13 EPIGASTRIC PAIN 01/11/2017 IVY HARDY APRN Ot Z87.442 PERSONAL HISTORY OF URINARY CALCULI 01/11/2017 IVY HARDY APRN Ot Z90.89 ACQUIRED ABSENCE OF OTHER ORGANS 01/11/2017 IVY HARDY APRN Ot Z91.19 PAT[facility]'S [facility]COMPLIANCE [facility] 03/27/2017 MARTIN ACUNA Ot F12.90 [...] NICOTINE DEPENDENCE, CIGARETTES, UNCOMPL 09/20/2017 GOLD HOWARD MD Ot F41.9 ANXIETY DISORDER, UNSPECIFIED 09/20/2017 GOLD HOWARD MD Ot F90.9 ATTENTION-DEFICIT HYPERACTIVITY DISORDER 09/20/2017 GOLD HOWARD MD Ot I10 ESSENTIAL (PRIMARY) HYPERTENSION 09/20/2017 GOLD HOWARD MD Ot J44.9 CHRONIC OBSTRUCTIVE PULMONARY DISEASE, U 09/20/2017 GOLD HOWARD MD Ot K21.9 GASTRO-ESOPHAGEAL REFLUX DISEASE WITHOUT 09/20/2017 GOLD HOWARD MD Ot K70.30 ALCOHOLIC CIRRHOSIS OF LIVER WITHOUT ASC 09/20/2017 GOLD HOWARD MD Ot R10.9 UNSPECIFIED ABDOMINAL PAIN 09/20/2017 GOLD HOWARD MD, Ot 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 09/20/2017 GOLD HOWARD MD, Ot Z80.0 FAMILY HISTORY [...] F12.10 CANNABIS ABUSE, UNCOMPLICATED 09/24/2017 GOLD HOWARD MD Ot F17.210 NICOTINE DEPENDENCE, CIGARETTES, UNCOMPL 09/24/2017 GOLD HOWARD MD, Ot F41.9 ANXIETY DISORDER, UNSPECIFIED 09/24/2017 GOLD HOWARD MD, Ot F90.9 ATTENTION-DEFICIT HYPERACTIVITY DISORDER 09/24/2017 GOLD HOWARD MD Ot I10 ESSENTIAL (PRIMARY) HYPERTENSION 09/24/2017 GOLD HOWARD MD, Ot J44.9 CHRONIC OBSTRUCTIVE PULMONARY DISEASE, U 09/24/2017 GOLD HOWARD MD, Ot K21.9 GASTRO-ESOPHAGEAL REFLUX DISEASE WITHOUT 09/24/2017 GOLD HOWARD MD Ot K70.30 ALCOHOLIC CIRRHOSIS OF LIVER WITHOUT ASC 09/24/2017 GOLD HOWARD MD, Ot R10.9 UNSPECIFIED ABDOMINAL PAIN 09/24/2017 GOLD HOWARD MD, Ot Z79.51 USP (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 OF INHALED STERO 09/24/2017 GOLD [...] HOWARD MD, Ot Z91.19 [facility]'S [facility]COMPLIANCE [facility] 12/19/2017 GOLD HOWARD MD, Ot B19.20 UNSPECIFIED VIRAL HEPATITIS C WITHOUT HE 12/19/2017 GOLD HOWARD MD, Ot F10.20 ALCOHOL DEPENDENCE, UNCOMPLICATED 12/19/2017 GOLD HOWARD MD, Ot F12.10 CANNABIS ABUSE, UNCOMPLICATED 12/19/2017 GOLD HOWARD MD, Ot F41.9 ANXIETY DISORDER, UNSPECIFIED 12/19/2017 GOLD HOWARD MD, Ot F90.9 ATTENTION-DEFICIT HYPERACTIVITY DISORDER 12/19/2017 GOLD HOWARD MD Ot I10 ESSENTIAL (PRIMARY) HYPERTENSION 12/19/2017 GOLD HOWARD MD, Ot J44.9 CHRONIC OBSTRUCTIVE PULMONARY DISEASE, U 12/19/2017 GOLD HOWARD MD, Ot K21.9 GASTRO-ESOPHAGEAL REFLUX DISEASE WITHOUT 12/19/2017 GOLD HOWARD MD, Ot K74.60 UNSPECIFIED CIRRHOSIS OF LIVER 12/19/2017 GOLD HOWARD MD, Ot K92.0 HEMATEMESIS 12/19/2017 GOLD HOWARD MD, Ot M54.5 LOW BACK PAIN 12/19/2017 GOLD HOWARD MD, Ot R10.13 EPIGASTRIC PAIN 12/19/2017 GOLD HOWARD MD, Ot R16.0 HEPATOMEGALY, NOT ELSEWHERE CLASSIFIED 12/19/2017 GOLD HOWARD MD, Ot 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 12/19/2017 GOLD HOWARD MD Ot Z80.0 FAMILY HISTORY [...] Z91.19 PATIENT'S NONCOMPLIANCE W OT MEDICAL TR 12/21/2017 GOLD HOWARD MD, Ot B19.20 UNSPECIFIED VIRAL HEPATITIS C WITHOUT HE 12/21/2017 GOLD HOWARD MD, Ot F10.20 ALCOHOL DEPENDENCE, UNCOMPLICATED 12/21/2017 GOLD HOWARD MD, Ot F12.10 CANNABIS ABUSE, UNCOMPLICATED 12/21/2017 GOLD HOWARD MD, Ot F41.9 ANXIETY DISORDER, UNSPECIFIED 12/21/2017 GOLD HOWARD MD, Ot F90.9 ATTENTION-DEFICIT HYPERACTIVITY DISORDER 12/21/2017 GOLD HOWARD MD Ot I10 ESSENTIAL (PRIMARY) HYPERTENSION 12/21/2017 GOLD HOWARD MD, Ot J44.9 CHRONIC OBSTRUCTIVE PULMONARY DISEASE, U 12/21/2017 GOLD HOWARD MD Ot K21.9 GASTRO-ESOPHAGEAL REFLUX DISEASE WITHOUT 12/21/2017 GOLD HOWARD MD, Ot K74.60 UNSPECIFIED CIRRHOSIS OF LIVER 12/21/2017 GOLD HOWARD MD, Ot K92.0 HEMATEMESIS 12/21/2017 GOLD HOWARD MD, Ot M54.5 LOW BACK PAIN 12/21/2017 GOLD HOWARD MD, Ot R10.13 EPIGASTRIC PAIN 12/21/2017 GOLD HOWARD MD, Ot R16.0 HEPATOMEGALY, NOT ELSEWHERE CLASSIFIED 12/21/2017 GOLD HOWARD MD, Ot 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 12/21/2017 GOLD HOWARD MD, Ot Z80.0 FAMILY HISTORY OF MALIGNANT NEOPLASM OF 12/21/2017 GOLD HOWARD MD, Ot Z80.8 FAMILY HISTORY OF MALIGNANT NEOPLASM OF 12/21/2017 GODL HOWARD MD, Ot Z82.49 FAMILY HX OF [...] HOWARD MD, Ot Z91.19 [facility]'S [facility]COMPL[facility] 04/23/2018 MARTIN ACUAN Ot B19.20 UNSPECIFIED VIRAL HEPATITIS C WITHOUT HE 04/23/2018 MARTIN ACUNA Ot F12.10 CANNABIS ABUSE, UNCOMPLICATED 04/23/2018 MARTIN ACUNA Ot F17.210 NICOTINE DEPENDENCE, CIGARETTES, UNCOMPL 04/23/2018 MARTIN ACUNA Ot F41.9 ANXIETY DISORDER, UNSPECIFIED 04/23/2018 MARTIN ACUNA Ot F90.9 ATTENTION-DEFICIT HYPERACTIVITY DISORDER 04/23/2018 MARTIN ACUNA Ot F98.8 OT BEHAV/EMOTN DISORD W ONSET USLY OCCU 04/23/2018 MARTIN ACUNA Ot I 10 ESSENTIAL (PRIMARY) HYPERTENSION 04/23/2018 MARTIN ACUNA Ot [...] AND SNOW, 04/23/2018 MARTIN ACUNA Ot Y92.[address] [facility] [address] IN [facility] NON-[facility] (PRIVATE 04/23/2018 MARTIN ACUNA Ot Z79.51 USP (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 OF INHALED STERO 04/23/2018 MARTIN [...] ACUNA Ot F12.10 CANNABIS ABUSE, UNCOMPLICATED 04/25/2018 MARTIN ACUNA Ot F17.210 NICOTINE DEPENDENCE, CIGARETTES, UNCOMPL 04/25/2018 MARTIN ACUNA Ot F41.9 ANXIETY DISORDER, UNSPECIFIED 04/25/2018 MARTIN ACUNA Ot F90.9 ATTENTION-DEFICIT HYPERACTIVITY DISORDER 04/25/2018 MARTIN ACUNA Ot F98.8 OTH BEHAV/EMOTN DISORD W ONSET USLY OCCU 04/25/2018 MARTIN ACUNA Ot I 10 ESSENTIAL (PRIMARY) HYPERTENSION 04/25/2018 MARTIN ACUNA Ot J06.9 ACUTE UPPER RESPIRATORY INFECTION, UNSPE 04/25/2018 MARTIN AUCNA Ot J44.9 CHRONIC OBSTRUCTIVE PULMONARY DISEASE, U [...] AND SNOW, 04/25/2018 MARTIN ACUNA Ot Y92.[address] [facility] [address] IN [facility] NON-[facility] (PRIVATE 04/25/2018 MARTIN ACUNA Ot 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 9 HYPERTENSION NOS 04/25/2018 LORENZO CHAVEZ MD Ot 786. 05 SHORTNESS OF BREATH 04/25/2018 LORENZO CHAVEZ MD Ot 786. 50 CHEST PAIN NOS 04/25/2018 LORENZO CHAVEZ MD Ot 401. 9 HYPERTENSION NOS 04/25/2018 LORENZO CHAVEZ MD Ot 786. 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 04/25/2018 MAYCOL GUERRA MD Ot V72.6 3 PRE-PROCEDURAL LABORATORY EXAMINATION 04/25/2018 MAYCOL GUERRA MD Ot V74.8 SCREEN-BACTERIAL DIS NEC 04/25/2018 TEQUILA MARINO, RINKU Mota Ot 715.35 LOC OSTEOARTH NOS-PELVIS 04/25/2018 PENELOPE COLLAZO Ot 070.70 UNSPECIFIED VIRAL HEPATITIS C WITHOUT HE 04/25/2018 PENELOPE COLLAZO Ot 305.1 TOBACCO USE DISORDER 04/25/2018 PENELOPE COLLAZO Ot 401.9 HYPERTENSION NOS 04/25/2018 PENELOPE COLLAZO Ot 496 CHR AIRWAY OBSTRUCT NEC 04/25/2018 PENELOPE COLLAZO Ot 785.1 PALPITATIONS 04/25/2018 Ot 070.70 UNS PECIFIED VIRAL HEPATITIS C WITHOUT HE 04/25/2018 Ot 491.20 OBS TR CHRONIC BRONCHITIS, W/O EXACERBATI 04/25/2018 TEQUILA MARINORINKU Ot R93.5 ABN FINDINGS ON DX IMAGING OF ABD REGION 04/25/2018 TEQUILA MARINORINKU Ot K76.9 LIVER DISEASE, UNSPECIFIED 04/25/2018 TEQUILA MARINORINKU Ot K74.60 UNSPECIFIED CIRRHOSIS OF LIVER 04/25/2018 TEQUILA MARINORINKU Ot S19.9XXA UNSPECIFIED INJURY OF NECK, INITIAL ENCO 04/25/2018 TEQUILA MARINORINKU Ot W19.XXXA UNSPECIFIED FALL, INITIAL ENCOUNTER 04/25/2018 TEQUILA MARINORINKU Ot Y99.8 OTHER EXTERNAL CAUSE STATUS 04/25/2018 TEQUILA MARINORINKU Ot K74.60 UNSPECIFIED CIRRHOSIS OF LIVER 04/25/2018 TEQUILA MARINORINKU Ot R91.8 OTHER NONSPECIFIC ABNORMAL FINDING OF CORI 04/25/2018 TEQUILA MARINORINKU Ot Z12.31 ENCNTR SCREEN MAMMOGRAM FOR MALIGNANT NE 04/25/2018 TEQUILA MARINORINKU Ot N95.0 POSTMENOPAUSAL BLEEDING 04/25/2018 TEQUILA MARINORINKU Ot N64.89 OTHER SPECIFIED DISORDERS OF BREAST 04/25/2018 TEQUILA MARINORINKU Ot R92.8 OTH ABN AND INCONCLUSIVE FINDINGS ON DX 05/15/2018 PENELOPE COLLAZO Ot 070.70 UNSPECIFIED VIRAL HEPATITIS C WITHOUT HE 05/15/2018 PENELOPE COLLAZO Ot 305.1 TOBACCO USE DISORDER 05/15/2018 PENELOPE COLLAZO Ot 401.9 HYPERTENSION NOS 05/15/2018 PENELOPE COLLAZO Ot 496 CHR AIRWAY OBSTRUCT NEC 05/15/2018 PENELOPE COLLAZO Ot 785.1 PALPITATIONS 05/15/2018 AROLDO MERCADO MD Ot B19.20 UNSPECIFIED VIRAL HEPATITIS C WITHOUT HE 05/15/2018 AROLDO MERCADO MD Ot E86.0 DEHYDRATION 05/15/2018 AROLDO MERCADO MD Ot F10.10 ALCOHOL ABUSE, UNCOMPLICATED 05/15/2018 AROLDO MERCADO MD Ot F12.10 CANNABIS ABUSE, UNCOMPLICATED 05/15/2018 AROLDO MERCADO MD Ot F17.210 NICOTINE DEPENDENCE, CIGARETTES, UNCOMPL 05/15/2018 AROLDO MERCADO MD Ot F41.9 ANXIETY DISORDER, UNSPECIFIED 05/15/2018 AROLDO MERCADO MD Ot F90.9 ATTENTION-DEFICIT HYPERACTIVITY DISORDER 05/15/2018 AROLDO MERCADO MD Ot F98.8 OTH BEHAV/EMOTN DISORD W ONSET USLY OCCU 05/15/2018 AROLDO MERCADO MD Ot I10 ESSENTIAL (PRIMARY) HYPERTENSION 05/15/2018 AROLDO MERCADO MD Ot J44.9 CHRONIC OBSTRUCTIVE PULMONARY DISEASE, U 05/15/2018 AROLDO MERCADO MD Ot K21.9 GASTRO-ESOPHAGEAL REFLUX DISEASE WITHOUT 05/15/2018 AROLDO MERCADO MD Ot R11.2 NAUSEA WITH VOMITING, UNSPECIFIED 05/15/2018 AROLDO MERCADO MD Ot 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 05/15/2018 AROLDO MERCADO MD Ot Z80.0 FAMILY HISTORY OF MALIGNANT NEOPLASM OF 05/15/2018 AROLDO MERCADO MD Ot Z82.49 FAMILY HX OF ISCHEM HEART DIS AND OTH DI 05/15/2018 AROLDO MERCADO MD Ot Z87.19 PERSONAL HISTORY OF OTHER DISEASES OF TH 05/15/2018 AROLDO MERCADO MD Ot Z87.442 PERSONAL HISTORY OF URINARY CALCULI 05/15/2018 AROLDO MERCADO MD Ot Z88.5 ALLERGY STATUS TO NARCOTIC AGENT STATUS 05/15/2018 AROLDO MERCADO MD, Ot Z88.8 [facility]BIOL SUB 05/15/2018 AROLDO MERCADO MD Ot Z90.89 ACQUIRED ABSENCE OF OTHER ORGANS 05/15/2018 AROLDO MERCADO MD Ot Z91.19 PATIENT'S NONCOMPLIANCE W OT MEDICAL TR 05/15/2018 AROLDO MERCADO MD Ot Z98.890 OTHER SPECIFIED POSTPROCEDURAL STATES 05/17/2018 AROLDO MERCADO MD, Ot B19.20 UNSPECIFIED VIRAL HEPATITIS C WITHOUT HE 05/17/2018 AROLDO MERCADO MD Ot E86.0 DEHYDRATION 05/17/2018 AROLDO MERCADO MD Ot F10.10 ALCOHOL ABUSE, UNCOMPLICATED 05/17/2018 AROLDO MERCADO MD Ot F12.10 CANNABIS ABUSE, UNCOMPLICATED 05/17/2018 AROLDO MERCADO MD Ot F17.210 NICOTINE DEPENDENCE, CIGARETTES, UNCOMPL 05/17/2018 AROLDO MERCADO MD Ot F41.9 ANXIETY DISORDER, UNSPECIFIED 05/17/2018 AROLDO MERCADO MD Ot F90.9 ATTENTION-DEFICIT HYPERACTIVITY DISORDER 05/17/2018 AROLDO MERCADO MD Ot F98.8 OT BEHAV/EMOTN DISORD W ONSET USLY OCCU 05/17/2018 AROLDO MERCADO MD Ot I10 ESSENTIAL (PRIMARY) HYPERTENSION 05/17/2018 AROLDO MERCADO MD Ot J44.9 CHRONIC OBSTRUCTIVE PULMONARY DISEASE, U 05/17/2018 AROLDO MERCADO MD Ot K21.9 GASTRO-ESOPHAGEAL REFLUX DISEASE WITHOUT 05/17/2018 AROLDO MERCADO MD Ot R11.2 NAUSEA WITH VOMITING, UNSPECIFIED 05/17/2018 AROLDO MERCADO MD Ot Z79.51 USP (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 OF INHALED STERO 05/17/2018 AROLDO MERCADO MD Ot Z80.0 FAMILY HISTORY OF MALIGNANT NEOPLASM OF 05/17/2018 AROLDO MERCADO MD Ot Z82.49 FAMILY HX OF ISCHEM HEART DIS AND OTH DI 05/17/2018 AROLDO MERCADO MD, Ot Z87.19 PERSONAL HISTORY OF OTHER DISEASES OF TH 05/17/2018 AROLDO MERCADO MD, Ot Z87.442 PERSONAL HISTORY OF URINARY CALCULI 05/17/2018 AROLDO MERCADO MD, Ot Z88.5 ALLERGY STATUS TO NARCOTIC AGENT STATUS 05/17/2018 AROLDO MERCADO MD, Ot Z88.8 [facility]ERGY STATUS [facility]/BIOL SUB 05/17/2018 AROLDO MERCADO MD, Ot Z90.89 ACQUIRED ABSENCE OF OTHER ORGANS 05/17/2018 AROLDO MERCADO MD, Ot Z91.19 PATIENT'S NONCOMPLIANCE W OT MEDICAL TR 05/17/2018 AROLDO MERCADO MD, Ot Z98.890 OTHER SPECIFIED POSTPROCEDURAL STATES 11/26/2018 AROLDO MERCADO MD, Ot B19.20 UNSPECIFIED VIRAL HEPATITIS C WITHOUT HE 11/26/2018 AROLDO MERCADO MD, Ot E03.9 HYPOTHYROIDISM, UNSPECIFIED 11/26/2018 AROLDO MERCADO MD, Ot F17.210 NICOTINE DEPENDENCE, CIGARETTES, UNCOMPL 11/26/2018 AROLDO MERCADO MD, Ot F41.9 ANXIETY DISORDER, UNSPECIFIED 11/26/2018 AROLDO MERCADO MD, Ot F90.9 ATTENTION-DEFICIT HYPERACTIVITY DISORDER 11/26/2018 AROLDO MERCADO MD, Ot I10 ESSENTIAL (PRIMARY) HYPERTENSION 11/26/2018 AROLDO MERCADO MD, Ot J44.9 CHRONIC OBSTRUCTIVE PULMONARY DISEASE, U 11/26/2018 AROLDO MERCADO MD, Ot K21.9 GASTRO-ESOPHAGEAL REFLUX DISEASE WITHOUT 11/26/2018 AROLDO MERCADO MD Ot M79.7 FIBROMYALGIA 11/26/2018 AROLDO MERCADO MD Ot R10.13 EPIGASTRIC PAIN 11/26/2018 AROLDO MERCADO MD, Ot R11.2 NAUSEA WITH VOMITING, UNSPECIFIED 11/26/2018 AROLDO MERCADO MD, Ot S39.012A STRAIN OF MUSCLE, FASCIA AND TENDON OF L 11/26/2018 AROLDO MERCADO MD Ot X58.XXXA EXPOSURE TO OTHER SPECIFIED FACTORS, INI 11/26/2018 AROLDO MERCADO MD, Ot Z79.51 USP (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 OF INHALED STERO 11/26/2018 AROLDO MERCADO MD Ot Z80.0 FAMILY HISTORY OF MALIGNANT NEOPLASM OF 11/26/2018 AROLDO MERCADO MD, Ot Z80.8 FAMILY HISTORY OF MALIGNANT NEOPLASM OF 11/26/2018 AROLDO MERCADO MD Ot Z82.49 FAMILY HX OF ISCHEM HEART DIS AND OTH DI 11/26/2018 AROLDO MERCADO MD Ot Z87.19 PERSONAL HISTORY OF OTHER DISEASES OF TH 11/26/2018 AROLDO MERCADO MD Ot Z88.5 ALLERGY STATUS TO NARCOTIC AGENT STATUS 11/26/2018 AROLDO MERCADO MD Ot Z90.49 ACQUIRED ABSENCE OF OTHER SPECIFIED PART 11/26/2018 AROLDO MERCADO MD, Ot Z90.89 ACQUIRED ABSENCE OF OTHER ORGANS 12/05/2018 AROLDO MERCADO MD, Ot B19.20 UNSPECIFIED VIRAL HEPATITIS C WITHOUT HE 12/05/2018 AROLDO MERCADO MD Ot E03.9 HYPOTHYROIDISM, UNSPECIFIED 12/05/2018 AROLDO MERCADO MD Ot F17.210 NICOTINE DEPENDENCE, CIGARETTES, UNCOMPL 12/05/2018 AROLDO MERCADO MD Ot F41.9 ANXIETY DISORDER, UNSPECIFIED 12/05/2018 AROLDO MERCADO MD Ot F90.9 ATTENTION-DEFICIT HYPERACTIVITY DISORDER 12/05/2018 AROLDO MERCADO MD Ot I10 ESSENTIAL (PRIMARY) HYPERTENSION 12/05/2018 AROLDO MERCADO MD Ot J44.9 CHRONIC OBSTRUCTIVE PULMONARY DISEASE, U 12/05/2018 AROLDO MERCADO MD Ot K21.9 GASTRO-ESOPHAGEAL REFLUX DISEASE WITHOUT 12/05/2018 AROLDO MERCADO MD Ot M79.7 FIBROMYALGIA 12/05/2018 AROLDO MERCADO MD Ot R10.13 EPIGASTRIC PAIN 12/05/2018 AROLDO MERCADO MD Ot R11.2 NAUSEA WITH VOMITING, UNSPECIFIED 12/05/2018 AROLDO MERCADO MD Ot S39.012A STRAIN OF MUSCLE, FASCIA AND TENDON OF L 12/05/2018 AROLDO MERCADO MD Ot X58.XXXA EXPOSURE TO OTHER SPECIFIED FACTORS, INI 12/05/2018 AROLDO MERCADO MD Ot 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 12/05/2018 AROLDO MERCADO MD Ot Z80.0 FAMILY HISTORY OF MALIGNANT NEOPLASM OF 12/05/2018 AROLDO MERCADO MD Ot Z80.8 FAMILY HISTORY OF MALIGNANT NEOPLASM OF 12/05/2018 AROLDO MERCADO MD Ot Z82.49 FAMILY HX OF ISCHEM HEART DIS AND OTH DI 12/05/2018 AROLDO MERCADO MD Ot Z87.19 PERSONAL HISTORY OF OTHER DISEASES OF 12/05/2018 AROLDO MERCADO MD Ot Z88.5 ALLERGY STATUS TO NARCOTIC AGENT STATUS 12/05/2018 AROLDO MERCADO MD Ot Z90.49 ACQUIRED ABSENCE OF OTHER SPECIFIED PART 12/05/2018 AROLDO MERCADO MD Ot Z90.89 ACQUIRED ABSENCE OF OTHER ORGANS 06/18/2019 CORETTA MCCRAY DO Ot Z01.818 ENCOUNTER FOR OTHER PREPROCEDURAL EXAMIN 06/24/2019 CORETTA MCCRAY DO Ot B19. 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 8 BENIGN NEOPLASM OF RECTUM 06/24/2019 CORETTA MCCRAY DO Ot F17.290 NICOTINE DEPENDENCE, OTHER TOBACCO PRODU 06/24/2019 CORETTA MCCRAY DO Ot F90. 9 ATTENTION-DEFICIT HYPERACTIVITY DISORDER 06/24/2019 CORETTA MCCRAY DO Ot I10 ESSENTIAL (PRIMARY) HYPERTENSION 06/24/2019 CORETTA MCCRAY DO Ot J44. 9 CHRONIC OBSTRUCTIVE PULMONARY DISEASE, U 06/24/2019 CORETTA MCCRAY DO Ot M79. 7 FIBROMYALGIA 06/24/2019 CORETTA MCCRAY DO Ot 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 06/26/2019 CORETTA MCCRAY DO Ot B19. 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 8 BENIGN NEOPLASM OF RECTUM 06/26/2019 CORETTA MCCRAY DO Ot F17.290 NICOTINE DEPENDENCE, OTHER TOBACCO PRODU [facility]/26/[facility] 9 ATTENTION-DEFICIT HYPERACTIVITY DISORDER 06/26/2019 [facility] I10 ESSENTIAL (PRIMARY) HYPERTENSION 06/26/2019 [facility] J44. 9 CHRONIC OBSTRUCTIVE PULMONARY DISEASE, U 06/26/2019 [facility] M79. 7 FIBROMYALGIA 06/26/2019 [facility] 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 07/02/2019 [facility], CORETTA D Ot B19. 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 8 BENIGN NEOPLASM OF RECTUM 07/02/2019 [facility] F17.290 NICOTINE DEPENDENCE, OTHER TOBACCO PRODU 07/02/2019 [facility] F90. 9 ATTENTION-DEFICIT HYPERACTIVITY DISORDER 07/02/2019 [facility] I10 ESSENTIAL (PRIMARY) HYPERTENSION 07/02/2019 [facility] J44. 9 CHRONIC OBSTRUCTIVE PULMONARY DISEASE, U 07/02/2019 [facility] M79. 7 FIBROMYALGIA 07/02/2019 [facility] Z79.899 OTHER USP (CURRENT) DRUG THERAPY 07/23/2019 [facility]01.818 ENCOUNTER FOR OTHER PREPROCEDURAL EXAMIN 08/20/2019 PJ TREJO [employer]IPMENT SUPERVISOR Ot B19.20 UNSPECIFIED VIRAL HEPATITIS C WITHOUT HE 08/20/2019 [facility], PJ [employer] EQUIP[employer] SUPERVISOR Ot F41.9 ANXIETY DISORDER, UNSPECIFIED 08/20/2019 MAYA, PJ [employer] EQUIPMENT SUPERVISOR Ot F90.9 ATTENTION-DEFICIT HYPERACTIVITY DISORDER 08/20/2019 MAYA, PJ [employer] EQUIPMENT SUPERVISOR Ot G89.29 OTHER CHRONIC PAIN 08/20/2019 MAYA, PJ [employer] EQUIP[employer] SUPERVISOR Ot I10 ESSENTIAL (PRIMARY) HYPERTENSION 08/20/2019 MAYA, PJ [employer] EQUIPMENT SUPERVISOR Ot J44.9 CHRONIC OBSTRUCTIVE PULMONARY DISEASE, U 08/20/2019 MAYA, PJ [employer] EQUIPMENT SUPERVISOR Ot K21.9 GASTRO-ESOPHAGEAL REFLUX DISEASE WITHOUT 08/20/2019 MAYA, PJ [employer]IP[employer] SUPERVISOR Ot M19.91 PRIMARY OSTEOARTHRITIS, UNSPECIFIED SITE 08/20/2019 MAYA, PJ [employer] SUPERVISOR Ot M54.9 DORSALGIA, UNSPECIFIED 08/20/2019 MAYA, PJ [employer]IP[employer] SUPERVISOR Ot M79.7 FIBROMYALGIA 08/20/2019 MAYA, PJ [employer] EQUIP[employer] SUPERVISOR Ot N30.01 ACUTE CYSTITIS WITH HEMATURIA 08/20/2019 MAYA, PJ [employer] SUPERVISOR Ot R05 COUGH 08/20/2019 MAYA, PJ [employer] EQUIP[employer] SUPERVISOR Ot Z77.22 CNTCT W AND EXPSR TO ENVIRON TOBACCO SMO 08/20/2019 MAYA, PJ [employer]IP[employer] SUPERVISOR Ot 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 08/20/2019 MAYA, JP [employer] EQUIP[employer] SUPERVISOR Ot Z87.19 PERSONAL HISTORY OF OTHER DISEASES OF 08/20/2019 MAYA, PJ [employer] EQUIPMENT SUPERVISOR Ot Z88.5 ALLERGY STATUS TO NARCOTIC AGENT STATUS 08/20/2019 MAYA, PJ [employer] EQUIP[employer] SUPERVISOR Ot Z91.19 [facility]'S [facility] 08/22/2019 MAYA, PJ [employer] EQUIPMENT SUPERVISOR Ot B19.20 UNSPECIFIED VIRAL HEPATITIS C WITHOUT HE 08/22/2019 MAYA, PJ [employer] EQUIP[employer] SUPERVISOR Ot F41.9 ANXIETY DISORDER, UNSPECIFIED 08/22/2019 MAYA, PJ [employer] E[employer]IP[employer] SUPERVISOR Ot F90.9 ATTENTION-DEFICIT HYPERACTIVITY DISORDER 08/22/2019 MAYA, PJ [employer] SUPERVISOR Ot G89.29 OTHER CHRONIC PAIN 08/22/2019 MAYA, PJ [employer] SUPERVISOR Ot I10 ESSENTIAL (PRIMARY) HYPERTENSION 08/22/2019 MAYA, PJ [employer] SUPERVISOR Ot J44.9 CHRONIC OBSTRUCTIVE PULMONARY DISEASE, U 08/22/2019 MAYA, PJ [employer] SUPERVISOR Ot K21.9 GASTRO-ESOPHAGEAL REFLUX DISEASE WITHOUT 08/22/2019 MAYA, PJ [employer] SUPERVISOR Ot M19.91 PRIMARY OSTEOARTHRITIS, UNSPECIFIED SITE 08/22/2019 MAYA, PJ [employer] SUPERVISOR Ot M54.9 DORSALGIA, UNSPECIFIED 08/22/2019 MAYA, PJ [employer] SUPERVISOR Ot M79.7 FIBROMYALGIA 08/22/2019 MAYA, PJ [employer] SUPERVISOR Ot N30.01 ACUTE CYSTITIS WITH HEMATURIA 08/22/2019 MAYA, PJ [employer] SUPERVISOR Ot R05 COUGH 08/22/2019 MAYA, PJ [employer] SUPERVISOR Ot Z77.22 CNTCT W AND EXPSR TO ENVIRON TOBACCO SMO 08/22/2019 MAYA, PJ [employer] SUPERVISOR Ot 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 08/22/2019 MAYA, PJ [employer] SUPERVISOR Ot Z87.19 PERSONAL HISTORY OF OTHER DISEASES OF 08/22/2019 MAYA, PJ [employer] SUPERVISOR Ot Z88.5 ALLERGY STATUS TO NARCOTIC AGENT STATUS 08/22/2019 MAYA, PJ [employer] SUPERVISOR Ot Z91.19 [facility] 08/22/2019 MAYA, PJ [employer] SUPERVISOR Ot B19.20 UNSPECIFIED VIRAL HEPATITIS C WITHOUT HE 08/22/2019 MAYA, PJ [employer] SUPERVISOR Ot F41.9 ANXIETY DISORDER, UNSPECIFIED 08/22/2019 MAYA, PJ [employer] SUPERVISOR Ot F90.9 ATTENTION-DEFICIT HYPERACTIVITY DISORDER 08/22/2019 MAYA, PJ [employer] SUPERVISOR Ot G89.29 OTHER CHRONIC PAIN 08/22/2019 MAYA, PJ [employer] SUPERVISOR Ot I10 ESSENTIAL (PRIMARY) HYPERTENSION 08/22/2019 MAYA, PJ [employer] SUPERVISOR Ot J44.9 CHRONIC OBSTRUCTIVE PULMONARY DISEASE, U 08/22/2019 MAYA, PJ [employer] SUPERVISOR Ot K21.9 GASTRO-ESOPHAGEAL REFLUX DISEASE WITHOUT 08/22/2019 MAYA, PJ [employer] SUPERVISOR Ot M19.91 PRIMARY OSTEOARTHRITIS, UNSPECIFIED SITE 08/22/2019 MAYA, PJ [employer] SUPERVISOR Ot M54.9 DORSALGIA, UNSPECIFIED 08/22/2019 MAYA, PJ [employer] SUPERVISOR Ot M79.7 FIBROMYALGIA 08/22/2019 MAYA, PJ [employer] SUPERVISOR Ot N30.01 ACUTE CYSTITIS WITH HEMATURIA 08/22/2019 MAYA, PJ [employer] SUPERVISOR Ot R05 COUGH 08/22/2019 MAYA, PJ [employer] SUPERVISOR Ot Z77.22 CNTCT W AND EXPSR TO ENVIRON TOBACCO SMO 08/22/2019 MAYA, PJ [employer] SUPERVISOR Ot 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 08/22/2019 MAYA, PJ [employer] SUPERVISOR Ot Z87.19 PERSONAL HISTORY OF OTHER DISEASES OF 08/22/2019 MAYA, PJ [employer] SUPERVISOR Ot Z88.5 ALLERGY STATUS TO NARCOTIC AGENT STATUS 08/22/2019 MAYA, PJ [employer] SUPERVISOR Ot Z91.19 PATIENT'S [facility]COMPLIANCE [facility] 08/28/2019 MAYA, PJ [employer] SUPERVISOR Ot B19.20 UNSPECIFIED VIRAL HEPATITIS C WITHOUT HE 08/28/2019 MAYA, PJ [employer] SUPERVISOR Ot F41.9 ANXIETY DISORDER, UNSPECIFIED 08/28/2019 MAYA, PJ [employer] SUPERVISOR Ot F90.9 ATTENTION-DEFICIT HYPERACTIVITY DISORDER 08/28/2019 MAYA, PJ [employer] SUPERVISOR Ot G89.29 OTHER CHRONIC PAIN 08/28/2019 MAYA, PJ [employer] SUPERVISOR Ot I10 ESSENTIAL (PRIMARY) HYPERTENSION 08/28/2019 MAYA, PJ [employer] SUPERVISOR Ot J44.9 CHRONIC OBSTRUCTIVE PULMONARY DISEASE, U 08/28/2019 MAYA, PJ [employer] SUPERVISOR Ot K21.9 GASTRO-ESOPHAGEAL REFLUX DISEASE WITHOUT 08/28/2019 MAYA, PJ [employer] SUPERVISOR Ot M19.91 PRIMARY OSTEOARTHRITIS, UNSPECIFIED SITE 08/28/2019 MAYA, PJ [employer] SUPERVISOR Ot M54.9 DORSALGIA, UNSPECIFIED 08/28/2019 MAYA, PJ [employer]IP[employer] SUPERVISOR Ot M79.7 FIBROMYALGIA 08/28/2019 MAYA, PJ [employer]IP[employer] SUPERVISOR Ot N30.01 ACUTE CYSTITIS WITH HEMATURIA 08/28/2019 MAYA, PJ [employer] SUPERVISOR Ot R05 COUGH 08/28/2019 MAYA, PJ [employer] E[employer]IP[employer] SUPERVISOR Ot Z77.22 CNTCT W AND EXPSR TO ENVIRON TOBACCO SMO 08/28/2019 MAYA, PJ [employer]IP[employer] SUPERVISOR Ot Z79.899 OTHER USP (CURRENT) DRUG THERAPY 08/28/2019 MAYA, PJ [employer]IP[employer] SUPERVISOR Ot Z87.19 PERSONAL HISTORY OF OTHER DISEASES OF 08/28/2019 MAYA, PJ [employer] E[employer]IP[employer] SUPERVISOR Ot Z88.5 ALLERGY STATUS TO NARCOTIC AGENT STATUS 08/28/2019 MAYA, PJ [employer]IP[employer] SUPERVISOR Ot Z91.19 PATIENT'S [facility]COMPLIANCE [facility] 09/24/2019 MAYA, PJ [employer] E[employer]IPMENT SUPERVISOR Ot B19.20 UNSPECIFIED VIRAL HEPATITIS C WITHOUT HE 09/24/2019 MAYA, PJ [employer] E[employer]IPMENT SUPERVISOR Ot F41.9 ANXIETY DISORDER, UNSPECIFIED 09/24/2019 MAYA, PJ [employer] SUPERVISOR Ot F90.9 ATTENTION-DEFICIT HYPERACTIVITY DISORDER 09/24/2019 MAYA, PJ [employer] SUPERVISOR Ot G89.29 OTHER CHRONIC PAIN 09/24/2019 MAYA, PJ [employer] E[employer]IP[employer] SUPERVISOR Ot I10 ESSENTIAL (PRIMARY) HYPERTENSION 09/24/2019 MAYA, PJ [employer] E[employer]IP[employer] SUPERVISOR Ot J44.9 CHRONIC OBSTRUCTIVE PULMONARY DISEASE, U 09/24/2019 MAYA, PJ [employer] E[employer]IP[employer] SUPERVISOR Ot K21.9 GASTRO-ESOPHAGEAL REFLUX DISEASE WITHOUT 09/24/2019 MAYA, PJ [employer] E[employer] SUPERVISOR Ot M19.91 PRIMARY OSTEOARTHRITIS, UNSPECIFIED SITE 09/24/2019 MAYA, PJ [employer]IP[employer] SUPERVISOR Ot M54.9 DORSALGIA, UNSPECIFIED 09/24/2019 MAYA, PJ [employer] E[employer]IP[employer] SUPERVISOR Ot M79.7 FIBROMYALGIA 09/24/2019 MAYA, PJ [employer] EQUIPMENT SUPERVISOR Ot N30.01 ACUTE CYSTITIS WITH HEMATURIA 09/24/2019 MAYA, PJ [employer] E[employer]IP[employer] SUPERVISOR Ot R05 COUGH 09/24/2019 MAYA, PJ [employer] E[employer]IPMENT SUPERVISOR Ot Z20.828 CONTACT W AND EXPOSURE TO OTH VIRAL COMM 09/24/2019 MAYA, PJ [employer] EQUIPMENT SUPERVISOR Ot Z77.22 CNTCT W AND EXPSR TO ENVIRON TOBACCO SMO 09/24/2019 MAYA, PJ [employer] E[employer]IPMENT SUPERVISOR Ot 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 09/24/2019 MAYA, PJ [employer] E[employer]IP[employer] SUPERVISOR Ot Z87.19 PERSONAL HISTORY OF OTHER DISEASES OF 09/24/2019 MAYA, PJ [employer] E[employer]IP[employer] SUPERVISOR Ot Z88.5 ALLERGY STATUS TO NARCOTIC AGENT STATUS 09/24/2019 MAYA, PJ [employer] EQUIPMENT SUPERVISOR Ot Z91.19 PATIENT'S [facility]ANCE [facility] 09/24/2019 MAYA, PJ [employer] EQUIPMENT SUPERVISOR Ot B19.20 UNSPECIFIED VIRAL HEPATITIS C WITHOUT HE 09/24/2019 MAYA, PJ [employer] E[employer]IP[employer] SUPERVISOR Ot F41.9 ANXIETY DISORDER, UNSPECIFIED 09/24/2019 MAYA, PJ [employer] E[employer]IP[employer] SUPERVISOR Ot F90.9 ATTENTION-DEFICIT HYPERACTIVITY DISORDER 09/24/2019 MAYA, PJ [employer]IP[employer] SUPERVISOR Ot G89.29 OTHER CHRONIC PAIN 09/24/2019 MAYA, PJ [employer] E[employer]IP[employer] SUPERVISOR Ot I10 ESSENTIAL (PRIMARY) HYPERTENSION 09/24/2019 MAYA, PJ [employer] EQUIPMENT SUPERVISOR Ot J44.9 CHRONIC OBSTRUCTIVE PULMONARY DISEASE, U 09/24/2019 MAYA, PJ [employer] EQUIPMENT SUPERVISOR Ot K21.9 GASTRO-ESOPHAGEAL REFLUX DISEASE WITHOUT 09/24/2019 MAYA, PJ [employer] E[employer]IP[employer] SUPERVISOR Ot M19.91 PRIMARY OSTEOARTHRITIS, UNSPECIFIED SITE 09/24/2019 MAYA, PJ [employer] E[employer]IP[employer] SUPERVISOR Ot M54.9 DORSALGIA, UNSPECIFIED 09/24/2019 MAYA, PJ [employer] EQUIPMENT SUPERVISOR Ot M79.7 FIBROMYALGIA 09/24/2019 MAYA, PJ [employer] EQUIPMENT SUPERVISOR Ot N30.01 ACUTE CYSTITIS WITH HEMATURIA 09/24/2019 MAYA, PJ [employer] E[employer]IP[employer] SUPERVISOR Ot R05 COUGH 09/24/2019 MAYA, PJ [employer] E[employer]IPMENT SUPERVISOR Ot Z20.828 CONTACT W AND EXPOSURE TO OTH VIRAL COMM 09/24/2019 MAYA, PJ [employer] EQUIPMENT SUPERVISOR Ot Z77.22 CNTCT W AND EXPSR TO ENVIRON TOBACCO SMO 09/24/2019 PJ TREJO Ot Z79.899 OTHER USP (CURRENT) DRUG THERAPY 09/24/2019 PJ TREJO Ot Z87.19 PERSONAL HISTORY OF OTHER DISEASES OF 09/24/2019 PJ TREJO Ot Z88.5 ALLERGY STATUS TO NARCOTIC AGENT STATUS 09/24/2019 PJ TREJO Ot Z91.19 PATIENT'S NONCOMPLIANCE [facility] Procedures Code Description [place] [address] A1C 08/20/2008 84799 T4 FREE 10/05/2008 23262 T3 TOTAL 10/05/2008 [id number] EX CISION OF STOMACH, PYLORUS, ENDO, DIAG 08/17/2015 Results Test Result Range Complete blood count (CBC) with automate d white blood cell (WBC) differential - 01/18/16 13:52 Blood leukocytes automated count (number/volume) 7.5 10*3/uL 4.3-11.0 Blood erythrocytes automated count (number/volume) 4.19 10*6/uL 4.35-5.85 Venous blood hemoglobin measurement (mass/volume) 14.0 g/dL 11.5-16.0 Blood hematocrit (volume fraction) 40 % 35-52 Automated erythrocyte mean corpuscular volume 94 [ foz_us] 80-99 Automated erythrocyte mean corpuscular h emoglobin (mass per erythrocyte) 33 pg 25-34 Automated erythrocyte mean corpuscular h emoglobin concentration measurement (mass/volume) 35 g/dL 32-36 Automated erythrocyte distribution width ratio 14. 3 % 10.0- 14.5 Automated blood platelet count [...] 10*3 1.0-4.0 Blood monocytes automated count (number/volume) 0. 7 10*3 0.0-1.0 Automated eosinophil count 0.2 10*3/uL 0 .0-0.3 Automated blood basophil count (count/volume) 0.1 10*3/uL 0.0-0.1 PT panel in platelet poor plasma by coag ulation assay - 01/18/16 13:52 Prothrombin time (PT) in platelet poor plasma by coagu lation assay 14.4 s 12.2-14.7 INR in platelet poor plasma or blood by coagulation as say 1.2 0.8-1.4 Activated partial thromboplastin time (a PTT) in platelet poor plasma bycoagulation assay - 01/18/16 13:52 Activated partial thromboplastin time (a PTT) in platelet poor plasma bycoagulation assay 34 s 24-35 Fibrin D-dimer FEU measurement in platel et poor plasma (mass/volume) - 01/18/16 13:52 Fibrin [...] 5-14 Serum or plasma urea nitrogen measurement (mass/volume ) 5 mg/dL 7-18 Serum or plasma creatinine measurement (mass/volume) 0.69 mg/dL 0.60-1.30 Serum or plasma urea nitrogen/creatinine mass ratio 7 NRG Serum or plasma creatinine measurement w ith calculation of estimated glomerular filtration rate > NRG Serum or plasma glucose measurement (mass/volume) 112 mg/dL 70-105 Serum or plasma calcium measurement (mass/volume) 9.3 mg/dL 8.5-10.1 Serum or plasma total bilirubin measurement (mass/volu me) 1.2 mg/dL 0.1-1.0 Serum or plasma alkaline phosphatase zhanna surement (enzymatic activity/volume) 104 U/L 40-136 Serum or plasma aspartate aminotransfera se measurement (enzymatic activity/volume) 70 U/L 5-34 Serum or plasma alanine aminotransferase measurement (enzymatic activity/volume) 46 U/L 0-55 Serum or plasma protein measurement (mass/volume) 8.5 g/dL 6.4-8.2 Serum or plasma albumin measurement (mass/volume) 4.3 g/dL 3.2-4.5 Serum or plasma troponin i.cardiac measu rement (mass/volume) - 01/18/16 13:52 Serum or plasma troponin i.cardiac measurement (mass/v olume) < ng/mL <0.30 Urine drug screening test - 01/18/16 15: 04 Urine phencyclidine detection by screening method NEGATIVE NEGATIVE Urine benzodiazepines detection by screening method NEGATIVE NEGATIVE Urine cocaine detection NEGATIVE NEGATI VE Urine amphetamines detection by screening method N EGATIVE NEGATIVE Urine methamphetamine detection by screening method NEGATIVE NEGATIVE Urine cannabinoids detection by screening method P OSITIVE NEGATIVE Urine opiates detection by screening method NEGATI VE NEGATIVE Urine barbiturates detection NEGATIVE N EGATIVE Screening urine tricyclic antidepressants detection NEGATIVE NEGATIVE Urine methadone detection by screening method NEGA TIVE NEGATIVE Urine oxycodone detection NEGATIVE NEGA TIVE Urine propoxyphene detection NEGATIVE N EGATIVE Urine buprenophrine screen NEGATIVE NEG ATIVE Complete urinalysis with reflex to cultu re - 01/18/16 15:04 Urine color determination YELLOW NRG Urine clarity determination CLEAR NR G Urine pH measurement by test strip 7 5-9 Specific gravity of urine by test strip 1.005 1.016-1.022 Urine protein assay by test strip, semi-quantitative NEGATIVE NEGATIVE Urine glucose detection by automated test strip NE GATIVE NEGATIVE Erythrocytes detection in urine sediment by light micr oscopy NEGATIVE NEGATIVE Urine ketones detection by automated test strip NE GATIVE NEGATIVE Urine nitrite detection by test strip NEGATIVE NEGATIVE Urine total bilirubin detection by test strip NEGA TIVE NEGATIVE Urine urobilinogen measurement by automated test strip (mass/volume) NORMAL NORMAL Urine leukocyte esterase detection by dipstick NEG ATIVE NEGATIVE Automated urine sediment erythrocyte cou nt by microscopy (number/high power field) NONE NRG Automated urine sediment leukocyte count by microscopy (number/high power field) RARE NRG Bacteria detection in urine sediment by light microsco py NEGATIVE NRG Crystals detection in urine sediment by light microsco py NONE NRG Casts detection in urine sediment by light microscopy NONE NRG Mucus detection in urine sediment by light microscopy NEGATIVE NRG Complete urinalysis with reflex to culture NO NRG Complete urinalysis with reflex to cultu re - 02/19/16 22:56 Urine color determination YELLOW NRG Urine clarity determination SLIGHTLY CLOUDY NRG Urine pH measurement by test strip 6 5-9 Specific gravity of urine by test strip 1.015 1.016-1.022 Urine protein assay by test strip, semi-quantitative NEGATIVE NEGATIVE Urine glucose detection by automated test strip NE GATIVE NEGATIVE Erythrocytes detection in urine sediment by light micr oscopy 2+ NEGATIVE Urine ketones detection by automated test strip NE GATIVE NEGATIVE Urine nitrite detection by test strip NEGATIVE NEGATIVE Urine total bilirubin detection by test strip NEGA TIVE NEGATIVE Urine urobilinogen measurement by automated test strip (mass/volume) NORMAL NORMAL Urine leukocyte esterase detection by dipstick 3+ NEGATIVE Automated urine sediment erythrocyte cou nt by microscopy (number/high power field) RARE NRG Automated urine sediment leukocyte count by microscopy (number/high power field) [HPF] NRG Bacteria detection in urine sediment by light microsco py FEW NRG Squamous epithelial cells detection in u rine sediment by light microscopy 0-2 NRG Crystals detection in urine sediment by light microsco py NONE NRG Casts detection in urine sediment by light microscopy NONE NRG Mucus detection in urine sediment by light microscopy NEGATIVE NRG Complete urinalysis with reflex to culture YES NRG Urine drug screening test - 02/19/16 22: 56 Urine phencyclidine detection by screening method NEGATIVE NEGATIVE Urine benzodiazepines detection by screening method POSITIVE NEGATIVE Urine cocaine detection NEGATIVE NEGATI VE Urine amphetamines detection by screening method N EGATIVE NEGATIVE Urine methamphetamine detection by screening method NEGATIVE NEGATIVE Urine cannabinoids detection by screening method P OSITIVE NEGATIVE Urine opiates detection by screening method NEGATI VE NEGATIVE Urine barbiturates detection NEGATIVE N EGATIVE Screening urine tricyclic antidepressants detection NEGATIVE NEGATIVE Urine methadone detection by screening method NEGA TIVE NEGATIVE Urine oxycodone detection NEGATIVE NEGA TIVE Urine propoxyphene detection NEGATIVE N EGATIVE Urine buprenophrine screen NEGATIVE NEG ATIVE Bacterial urine culture - 02/19/16 22:56 Bacterial urine culture NG NRG Bacteria identification in genital speci men by aerobe culture - 02/19/16 23:30 Bacteria identification in genital specimen by aerobe culture NG NRG Microscopic examination by FEMI preparati on - 02/19/16 23:30 Microscopic examination by FEMI preparation TNP NRG Microscopic examination by wet preparati on - 02/19/16 23:30 WET PREP RESULTS 02/19/16 23:55 BY BD N RG Chlamydia trachomatis DNA detection by p robe and signal amplification method - 02/19/16 23:30 Chlamydia trachomatis DNA detection by p robe and target amplification method Negative Negative Neisseria gonorrhoeae DNA detection by p robe and signal amplification method - 02/19/16 23:30 Gonorrhea amp DNA-urine Negative Negati ve Blood lactic acid measurement (moles/vol ume) - 02/26/16 16:30 Blood lactic acid measurement (moles/volume) 1.8 m mol/L 0.5- 2.0 Complete blood count (CBC) with automate d white blood cell (WBC) differential - 02/26/16 16:30 Blood leukocytes automated count (number/volume) 7.5 10*3/uL 4.3-11.0 Blood erythrocytes automated count (number/volume) 4.20 10*6/uL 4.35-5.85 Venous blood hemoglobin measurement (mass/volume) 14.1 g/dL 11.5-16.0 Blood hematocrit (volume fraction) 40 % 35-52 Automated erythrocyte mean corpuscular volume 96 [ foz_us] 80-99 Automated erythrocyte mean corpuscular h emoglobin (mass per erythrocyte) 34 pg 25-34 Automated erythrocyte mean corpuscular h emoglobin concentration measurement (mass/volume) 35 g/dL 32-36 Automated erythrocyte distribution width ratio 13. 3 % 10.0- 14.5 Automated blood platelet count [...] 10*3 1.0-4.0 Blood monocytes automated count (number/volume) 0. 6 10*3 0.0-1.0 Automated eosinophil count 0.2 10*3/uL 0 .0-0.3 Automated blood basophil count (count/volume) 0.0 10*3/uL 0.0-0.1 Comprehensive metabolic panel - 02/26/16 16:30 Serum or plasma sodium measurement (moles/volume) 135 mmol/L 135-145 Serum or plasma potassium measurement (moles/volume) 4.0 mmol/L 3.6-5.0 Serum or plasma chloride measurement (moles/volume) 101 mmol/L 98-107 Carbon dioxide 20 mmol/L 21-32 Serum or plasma anion gap determination (moles/volume) 14 mmol/L 5-14 Serum or plasma urea nitrogen measurement (mass/volume ) 4 mg/dL 7-18 Serum or plasma creatinine measurement (mass/volume) 0.62 mg/dL 0.60-1.30 Serum or plasma urea nitrogen/creatinine mass ratio 6 NRG Serum or plasma creatinine measurement w ith calculation of estimated glomerular filtration rate > NRG Serum or plasma glucose measurement (mass/volume) 95 mg/dL 70-105 Serum or plasma calcium measurement (mass/volume) 9.4 mg/dL 8.5-10.1 Serum or plasma total bilirubin measurement (mass/volu me) 0.9 mg/dL 0.1-1.0 Serum or plasma alkaline phosphatase zhanna surement (enzymatic activity/volume) 98 U/L 40-136 Serum or plasma aspartate aminotransfera se measurement (enzymatic activity/volume) 34 U/L 5-34 Serum or plasma alanine aminotransferase measurement (enzymatic activity/volume) 21 U/L 0-55 Serum or plasma protein measurement (mass/volume) 8.1 g/dL 6.4-8.2 Serum or plasma albumin measurement (mass/volume) 3.8 g/dL 3.2-4.5 Bacterial blood culture - 02/26/16 16:30 Bacterial blood culture NG NRG Bacterial blood culture - 02/26/16 16:58 Bacterial blood culture NG NRG Complete urinalysis with reflex to cultu re - 02/26/16 17:54 Urine color determination YELLOW NRG Urine clarity determination CLEAR NR G Urine pH measurement by test strip 7 5-9 Specific gravity of urine by test strip 1.005 1.016-1.022 Urine protein assay by test strip, semi-quantitative NEGATIVE NEGATIVE Urine glucose detection by automated test strip NE GATIVE NEGATIVE Erythrocytes detection in urine sediment by light micr oscopy NEGATIVE NEGATIVE Urine ketones detection by automated test strip NE GATIVE NEGATIVE Urine nitrite detection by test strip NEGATIVE NEGATIVE Urine total bilirubin detection by test strip NEGA TIVE NEGATIVE Urine urobilinogen measurement by automated test strip (mass/volume) NORMAL NORMAL Urine leukocyte esterase detection by dipstick NEG ATIVE NEGATIVE Automated urine sediment erythrocyte cou nt by microscopy (number/high power field) NONE NRG Automated urine sediment leukocyte count by microscopy (number/high power field) NONE NRG Bacteria detection in urine sediment by light microsco py NEGATIVE NRG Squamous epithelial cells detection in u rine sediment by light microscopy 25-50 NRG Crystals detection in urine sediment by light microsco py NONE NRG Casts detection in urine sediment by light microscopy NONE NRG Mucus detection in urine sediment by light microscopy NEGATIVE NRG Complete urinalysis with reflex to culture NO NRG Complete urinalysis with reflex to cultu re - 05/08/16 10:00 Urine color determination YELLOW NRG Urine clarity determination CLEAR NR G Urine pH measurement by test strip 7 5-9 Specific gravity of urine by test strip 1.010 1.016-1.022 Urine protein assay by test strip, semi-quantitative 1+ NEGATIVE Urine glucose detection by automated test strip NE GATIVE NEGATIVE Erythrocytes detection in urine sediment by light micr oscopy NEGATIVE NEGATIVE Urine ketones detection by automated test strip 3+ NEGATIVE Urine nitrite detection by test strip NEGATIVE NEGATIVE Urine total bilirubin detection by test strip NEGA TIVE NEGATIVE Urine urobilinogen measurement by automated test strip (mass/volume) 1 mg/dL NORMAL Urine leukocyte esterase detection by dipstick 1+ NEGATIVE Automated urine sediment erythrocyte cou nt by microscopy (number/high power field) NONE NRG Automated urine sediment leukocyte count by microscopy (number/high power field) [HPF] NRG Bacteria detection in urine sediment by light microsco py TRACE NRG Squamous epithelial cells detection in u rine sediment by light microscopy 2-5 NRG Crystals detection in urine sediment by light microsco py NONE NRG Casts detection in urine sediment by light microscopy NONE NRG Mucus detection in urine sediment by light microscopy SMALL NRG Complete urinalysis with reflex to culture NO NRG Complete blood count (CBC) with automate d white blood cell (WBC) differential - 05/08/16 11:50 Blood leukocytes automated count (number/volume) 5.6 10*3/uL 4.3-11.0 Blood erythrocytes automated count (number/volume) 4.41 10*6/uL 4.35-5.85 Venous blood hemoglobin measurement (mass/volume) 14.5 g/dL 11.5-16.0 Blood hematocrit (volume fraction) 42 % 35-52 Automated erythrocyte mean corpuscular volume 96 [ foz_us] 80-99 Automated erythrocyte mean corpuscular h emoglobin (mass per erythrocyte) 33 pg 25-34 Automated erythrocyte mean corpuscular h emoglobin concentration measurement (mass/volume) 34 g/dL 32-36 Automated erythrocyte distribution width ratio 13. 8 % 10.0- 14.5 Automated blood platelet count [...] 10*3 1.0-4.0 Blood monocytes automated count (number/volume) 0. 6 10*3 0.0-1.0 Automated eosinophil count 0.2 10*3/uL 0 .0-0.3 Automated blood basophil count (count/volume) 0.1 10*3/uL 0.0-0.1 Comprehensive metabolic panel - 05/08/16 11:50 Serum or plasma sodium measurement (moles/volume) 136 mmol/L 135-145 Serum or plasma potassium measurement (moles/volume) 4.1 mmol/L 3.6-5.0 Serum or plasma chloride measurement (moles/volume) 101 mmol/L 98-107 Carbon dioxide 24 mmol/L 21-32 Serum or plasma anion gap determination (moles/volume) 11 mmol/L 5-14 Serum or plasma urea nitrogen measurement (mass/volume ) 8 mg/dL 7-18 Serum or plasma creatinine measurement (mass/volume) 0.64 mg/dL 0.60-1.30 Serum or plasma urea nitrogen/creatinine mass ratio 13 NRG Serum or plasma creatinine measurement w ith calculation of estimated glomerular filtration rate > NRG Serum or plasma glucose measurement (mass/volume) 104 mg/dL 70-105 Serum or plasma calcium measurement (mass/volume) 9.6 mg/dL 8.5-10.1 Serum or plasma total bilirubin measurement (mass/volu me) 1.4 mg/dL 0.1-1.0 Serum or plasma alkaline phosphatase zhanna surement (enzymatic activity/volume) 110 U/L 40-136 Serum or plasma aspartate aminotransfera se measurement (enzymatic activity/volume) 53 U/L 5-34 Serum or plasma alanine aminotransferase measurement (enzymatic activity/volume) 33 U/L 0-55 Serum or plasma protein measurement (mass/volume) 8.7 g/dL 6.4-8.2 Serum or plasma albumin measurement (mass/volume) 4.1 g/dL 3.2-4.5 Serum or plasma amylase measurement (enz ymatic activity/volume) - 05/08/16 11:50 Serum or plasma amylase measurement (enzymatic activit y/volume) 81 U/L 25-125 Lipase - 05/08/16 11:50 Lipase 26 U/L 8-78 Serum or plasma ethanol measurement (mas s/volume) - 05/08/16 11:50 Serum or plasma ethanol measurement (mass/volume) < mg/dL <10 Complete blood count (CBC) with automate d white blood cell (WBC) differential - 09/01/16 21:55 Blood leukocytes automated count (number/volume) 8.9 10*3/uL 4.3-11.0 Blood erythrocytes automated count (number/volume) 4.39 10*6/uL 4.35-5.85 Venous blood hemoglobin measurement (mass/volume) 14.6 g/dL 11.5-16.0 Blood hematocrit (volume fraction) 43 % 35-52 Automated erythrocyte mean corpuscular volume 98 [ foz_us] 80-99 Automated erythrocyte mean corpuscular h emoglobin (mass per erythrocyte) 33 pg 25-34 Automated erythrocyte mean corpuscular h emoglobin concentration measurement (mass/volume) 34 g/dL 32-36 Automated erythrocyte distribution width ratio 14. 3 % 10.0- 14.5 Automated blood platelet count [...] 10*3 1.0-4.0 Blood monocytes automated count (number/volume) 0. 7 10*3 0.0-1.0 Automated eosinophil count 0.4 10*3/uL 0 .0-0.3 Automated blood basophil count (count/volume) 0.1 10*3/uL 0.0-0.1 Comprehensive metabolic panel - 09/01/16 21:55 Serum or plasma sodium measurement (moles/volume) 136 mmol/L 135-145 Serum or plasma potassium measurement (moles/volume) 3.4 mmol/L 3.6-5.0 Serum or plasma chloride measurement (moles/volume) 99 mmol/L 98-107 Carbon dioxide 24 mmol/L 21-32 Serum or plasma anion gap determination (moles/volume) 13 mmol/L 5-14 Serum or plasma urea nitrogen measurement (mass/volume ) 7 mg/dL 7-18 Serum or plasma creatinine measurement (mass/volume) 0.64 mg/dL 0.60-1.30 Serum or plasma urea nitrogen/creatinine mass ratio 11 NRG Serum or plasma creatinine measurement w ith calculation of estimated glomerular filtration rate > NRG Serum or plasma glucose measurement (mass/volume) 93 mg/dL 70-105 Serum or plasma calcium measurement (mass/volume) 9.5 mg/dL 8.5-10.1 Serum or plasma total bilirubin measurement (mass/volu me) 1.4 mg/dL 0.1-1.0 Serum or plasma alkaline phosphatase zhanna surement (enzymatic activity/volume) 98 U/L 40-136 Serum or plasma aspartate aminotransfera se measurement (enzymatic activity/volume) 86 U/L 5-34 Serum or plasma alanine aminotransferase measurement (enzymatic activity/volume) 55 U/L 0-55 Serum or plasma protein measurement (mass/volume) 8.4 g/dL 6.4-8.2 Serum or plasma albumin measurement (mass/volume) 4.0 g/dL 3.2-4.5 Complete blood count (CBC) with automate d white blood cell (WBC) differential - 09/06/16 07:50 Blood leukocytes automated count (number/volume) 5.5 10*3/uL 4.3-11.0 Blood erythrocytes automated count (number/volume) 3.89 10*6/uL 4.35-5.85 Venous blood hemoglobin measurement (mass/volume) 13.0 g/dL 11.5-16.0 Blood hematocrit (volume fraction) 38 % 35-52 Automated erythrocyte mean corpuscular volume 98 [ foz_us] 80-99 Automated erythrocyte mean corpuscular h emoglobin (mass per erythrocyte) 33 pg 25-34 Automated erythrocyte mean corpuscular h emoglobin concentration measurement (mass/volume) 34 g/dL 32-36 Automated erythrocyte distribution width ratio 13. 9 % 10.0- 14.5 Automated blood platelet count [...] 10*3 1.0-4.0 Blood monocytes automated count (number/volume) 0. 5 10*3 0.0-1.0 Automated eosinophil count 0.3 10*3/uL 0 .0-0.3 Automated blood basophil count (count/volume) 0.1 10*3/uL 0.0-0.1 Urine drug screening test - 09/06/16 07: 50 Urine phencyclidine detection by screening method NEGATIVE NEGATIVE Urine benzodiazepines detection by screening method POSITIVE NEGATIVE Urine cocaine detection NEGATIVE NEGATI VE Urine amphetamines detection by screening method N EGATIVE NEGATIVE Urine methamphetamine detection by screening method NEGATIVE NEGATIVE Urine cannabinoids detection by screening method P OSITIVE NEGATIVE Urine opiates detection by screening method NEGATI VE NEGATIVE Urine barbiturates detection NEGATIVE N EGATIVE Screening urine tricyclic antidepressants detection POSITIVE NEGATIVE Urine methadone detection by screening method NEGA TIVE NEGATIVE Urine oxycodone detection NEGATIVE NEGA TIVE Urine propoxyphene detection NEGATIVE N EGATIVE PT panel in platelet poor plasma by coag ulation assay - 09/06/16 07:50 Prothrombin time (PT) in platelet poor plasma by coagu lation assay 14.2 s 12.2-14.7 INR in platelet poor plasma or blood by coagulation as say 1.1 0.8-1.4 Activated partial thromboplastin time (a PTT) in platelet poor plasma bycoagulation assay - 09/06/16 07:50 Activated partial thromboplastin time (a PTT) in platelet poor plasma bycoagulation assay 32 s 24-35 Comprehensive metabolic panel - 09/06/16 07:50 Serum or plasma sodium measurement (moles/volume) 138 mmol/L 135-145 Serum or plasma potassium measurement (moles/volume) 3.6 mmol/L 3.6-5.0 Serum or plasma chloride measurement (moles/volume) 102 mmol/L 98-107 Carbon dioxide 25 mmol/L 21-32 Serum or plasma anion gap determination (moles/volume) 11 mmol/L 5-14 Serum or plasma urea nitrogen measurement (mass/volume ) 8 mg/dL 7-18 Serum or plasma creatinine measurement (mass/volume) 0.66 mg/dL 0.60-1.30 Serum or plasma urea nitrogen/creatinine mass ratio 12 NRG Serum or plasma creatinine measurement w ith calculation of estimated glomerular filtration rate > NRG Serum or plasma glucose measurement (mass/volume) 107 mg/dL 70-105 Serum or plasma calcium measurement (mass/volume) 9.2 mg/dL 8.5-10.1 Serum or plasma total bilirubin measurement (mass/volu me) 0.7 mg/dL 0.1-1.0 Serum or plasma alkaline phosphatase zhanna surement (enzymatic activity/volume) 90 U/L 40-136 Serum or plasma aspartate aminotransfera se measurement (enzymatic activity/volume) 59 U/L 5-34 Serum or plasma alanine aminotransferase measurement (enzymatic activity/volume) 39 U/L 0-55 Serum or plasma protein measurement (mass/volume) 7.8 g/dL 6.4-8.2 Serum or plasma albumin measurement (mass/volume) 3.7 g/dL 3.2-4.5 Magnesium - 09/06/16 07:50 Magnesium 2.2 mg/dL 1.8-2.4 Serum or plasma amylase measurement (enz ymatic activity/volume) - 09/06/16 07:50 Serum or plasma amylase measurement (enzymatic activit y/volume) 61 U/L 25-125 Lipase - 09/06/16 07:50 Lipase 45 U/L 8-78 Ammonia - 09/06/16 07:50 Ammonia 54 umol/L 11-32 Serum or plasma ethanol measurement (mas s/volume) - 09/06/16 07:50 Serum or plasma ethanol measurement (mass/volume) < mg/dL <10 Complete urinalysis with reflex to cultu re - 09/06/16 07:50 Urine color determination YELLOW NRG Urine clarity determination CLEAR NR G Urine pH measurement by test strip 6.5 5-9 Specific gravity of urine by test strip 1.010 1.016-1.022 Urine protein assay by test strip, semi-quantitative NEGATIVE NEGATIVE Urine glucose detection by automated test strip NE GATIVE NEGATIVE Erythrocytes detection in urine sediment by light micr oscopy NEGATIVE NEGATIVE Urine ketones detection by automated test strip NE GATIVE NEGATIVE Urine nitrite detection by test strip NEGATIVE NEGATIVE Urine total bilirubin detection by test strip NEGA TIVE NEGATIVE Urine urobilinogen measurement by automated test strip (mass/volume) 1 mg/dL NORMAL Urine leukocyte esterase detection by dipstick NEG ATIVE NEGATIVE Automated urine sediment erythrocyte cou nt by microscopy (number/high power field) NONE NRG Automated urine sediment leukocyte count by microscopy (number/high power field) NONE NRG Bacteria detection in urine sediment by light microsco py TRACE NRG Squamous epithelial cells detection in u rine sediment by light microscopy 25-50 NRG Crystals detection in urine sediment by light microsco py NONE NRG Casts detection in urine sediment by light microscopy NONE NRG Mucus detection in urine sediment by light microscopy NEGATIVE NRG Complete urinalysis with reflex to culture NO NRG Complete blood count (CBC) with automate d white blood cell (WBC) differential - 10/07/16 18:49 Blood leukocytes automated count (number/volume) 7.9 10*3/uL 4.3-11.0 Blood erythrocytes automated count (number/volume) 4.37 10*6/uL 4.35-5.85 Venous blood hemoglobin measurement (mass/volume) 13.9 g/dL 11.5-16.0 Blood hematocrit (volume fraction) 41 % 35-52 Automated erythrocyte mean corpuscular volume 94 [ foz_us] 80-99 Automated erythrocyte mean corpuscular h emoglobin (mass per erythrocyte) 32 pg 25-34 Automated erythrocyte mean corpuscular h emoglobin concentration measurement (mass/volume) 34 g/dL 32-36 Automated erythrocyte distribution width ratio 13. 6 % 10.0- 14.5 Automated blood platelet count [...] 10*3 1.0-4.0 Blood monocytes automated count (number/volume) 0. 5 10*3 0.0-1.0 Automated eosinophil count 0.5 10*3/uL 0 .0-0.3 Automated blood basophil count (count/volume) 0.1 10*3/uL 0.0-0.1 Comprehensive metabolic panel - 10/07/16 18:49 Serum or plasma sodium measurement (moles/volume) 139 mmol/L 135-145 Serum or plasma potassium measurement (moles/volume) 3.9 mmol/L 3.6-5.0 Serum or plasma chloride measurement (moles/volume) 102 mmol/L 98-107 Carbon dioxide 23 mmol/L 21-32 Serum or plasma anion gap determination (moles/volume) 14 mmol/L 5-14 Serum or plasma urea nitrogen measurement (mass/volume ) 5 mg/dL 7-18 Serum or plasma creatinine measurement (mass/volume) 0.68 mg/dL 0.60-1.30 Serum or plasma urea nitrogen/creatinine mass ratio 7 0-20 Serum or plasma creatinine measurement w ith calculation of estimated glomerular filtration rate > NRG Serum or plasma glucose measurement (mass/volume) 98 mg/dL 70-105 Serum or plasma calcium measurement (mass/volume) 9.6 mg/dL 8.5-10.1 Serum or plasma total bilirubin measurement (mass/volu me) 0.8 mg/dL 0.1-1.0 Serum or plasma alkaline phosphatase zhanna surement (enzymatic activity/volume) 117 U/L 40-136 Serum or plasma aspartate aminotransfera se measurement (enzymatic activity/volume) 48 U/L 5-34 Serum or plasma alanine aminotransferase measurement (enzymatic activity/volume) 28 U/L 0-55 Serum or plasma protein measurement (mass/volume) 8.8 g/dL 6.4-8.2 Serum or plasma albumin measurement (mass/volume) 4.1 g/dL 3.2-4.5 Serum or plasma amylase measurement (enz ymatic activity/volume) - 10/07/16 18:49 Serum or plasma amylase measurement (enzymatic activit y/volume) 91 U/L 25-125 Lipase - 10/07/16 18:49 Lipase 44 U/L 8-78 Serum or plasma ethanol measurement (mas s/volume) - 10/07/16 18:49 Serum or plasma ethanol measurement (mass/volume) 22 mg/dL <10 Complete urinalysis with reflex to cultu re - 10/07/16 18:58 Urine color determination YELLOW NRG Urine clarity determination CLEAR NR G Urine pH measurement by test strip 6 5-9 Specific gravity of urine by test strip 1.010 1.016-1.022 Urine protein assay by test strip, semi-quantitative NEGATIVE NEGATIVE Urine glucose detection by automated test strip NE GATIVE NEGATIVE Erythrocytes detection in urine sediment by light micr oscopy NEGATIVE NEGATIVE Urine ketones detection by automated test strip NE GATIVE NEGATIVE Urine nitrite detection by test strip NEGATIVE NEGATIVE Urine total bilirubin detection by test strip NEGA TIVE NEGATIVE Urine urobilinogen measurement by automated test strip (mass/volume) NORMAL NORMAL Urine leukocyte esterase detection by dipstick NEG ATIVE NEGATIVE Automated urine sediment erythrocyte cou nt by microscopy (number/high power field) NONE NRG Automated urine sediment leukocyte count by microscopy (number/high power field) [HPF] NRG Bacteria detection in urine sediment by light microsco py NEGATIVE NRG Squamous epithelial cells detection in u rine sediment by light microscopy 2-5 NRG Crystals detection in urine sediment by light microsco py NONE NRG Casts detection in urine sediment by light microscopy NONE NRG Mucus detection in urine sediment by light microscopy NEGATIVE NRG Complete urinalysis with reflex to culture NO NRG Urine drug screening test - 10/07/16 18: 58 Urine phencyclidine detection by screening method NEGATIVE NEGATIVE Urine benzodiazepines detection by screening method POSITIVE NEGATIVE Urine cocaine detection NEGATIVE NEGATI VE Urine amphetamines detection by screening method N EGATIVE NEGATIVE Urine methamphetamine detection by screening method NEGATIVE NEGATIVE Urine cannabinoids detection by screening method P OSITIVE NEGATIVE Urine opiates detection by screening method NEGATI VE NEGATIVE Urine barbiturates detection NEGATIVE N EGATIVE Screening urine tricyclic antidepressants detection NEGATIVE NEGATIVE Urine methadone detection by screening method NEGA TIVE NEGATIVE Urine oxycodone detection NEGATIVE NEGA TIVE Urine propoxyphene detection NEGATIVE N EGATIVE Complete blood count (CBC) with automate d white blood cell (WBC) differential - 10/08/16 05:35 Blood leukocytes automated count (number/volume) 7.7 10*3/uL 4.3-11.0 Blood erythrocytes automated count (number/volume) 4.04 10*6/uL 4.35-5.85 Venous blood hemoglobin measurement (mass/volume) 12.9 g/dL 11.5-16.0 Blood hematocrit (volume fraction) 38 % 35-52 Automated erythrocyte mean corpuscular volume 94 [ foz_us] 80-99 Automated erythrocyte mean corpuscular h emoglobin (mass per erythrocyte) 32 pg 25-34 Automated erythrocyte mean corpuscular h emoglobin concentration measurement (mass/volume) 34 g/dL 32-36 Automated erythrocyte distribution width ratio 13. 5 % 10.0- 14.5 Automated blood platelet count [...] 10*3 1.0-4.0 Blood monocytes automated count (number/volume) 0. 8 10*3 0.0-1.0 Automated eosinophil count 0.3 10*3/uL 0 .0-0.3 Automated blood basophil count (count/volume) 0.0 10*3/uL 0.0-0.1 Comprehensive metabolic panel - 10/08/16 05:35 Serum or plasma sodium measurement (moles/volume) 138 mmol/L 135-145 Serum or plasma potassium measurement (moles/volume) 3.4 mmol/L 3.6-5.0 Serum or plasma chloride measurement (moles/volume) 103 mmol/L 98-107 Carbon dioxide 22 mmol/L 21-32 Serum or plasma anion gap determination (moles/volume) 13 mmol/L 5-14 Serum or plasma urea nitrogen measurement (mass/volume ) 5 mg/dL 7-18 Serum or plasma creatinine measurement (mass/volume) 0.62 mg/dL 0.60-1.30 Serum or plasma urea nitrogen/creatinine mass ratio 8 0-20 Serum or plasma creatinine measurement w ith calculation of estimated glomerular filtration rate > NRG Serum or plasma glucose measurement (mass/volume) 140 mg/dL 70-105 Serum or plasma calcium measurement (mass/volume) 9.0 mg/dL 8.5-10.1 Serum or plasma total bilirubin measurement (mass/volu me) 1.0 mg/dL 0.1-1.0 Serum or plasma alkaline phosphatase zhanna surement (enzymatic activity/volume) 109 U/L 40-136 Serum or plasma aspartate aminotransfera se measurement (enzymatic activity/volume) 44 U/L 5-34 Serum or plasma alanine aminotransferase measurement (enzymatic activity/volume) 24 U/L 0-55 Serum or plasma protein measurement (mass/volume) 8.0 g/dL 6.4-8.2 Serum or plasma albumin measurement (mass/volume) 3.7 g/dL 3.2-4.5 Serum or plasma amylase measurement (enz ymatic activity/volume) - 10/08/16 05:35 Serum or plasma amylase measurement (enzymatic activit y/volume) 65 U/L 25-125 Lipase - 10/08/16 05:35 Lipase 21 U/L 8-78 Complete blood count (CBC) with automate d white blood cell (WBC) differential - 10/09/16 06:34 Blood leukocytes automated count (number/volume) 5.0 10*3/uL 4.3-11.0 Blood erythrocytes automated count (number/volume) 4.15 10*6/uL 4.35-5.85 Venous blood hemoglobin measurement (mass/volume) 13.2 g/dL 11.5-16.0 Blood hematocrit (volume fraction) 40 % 35-52 Automated erythrocyte mean corpuscular volume 96 [ foz_us] 80-99 Automated erythrocyte mean corpuscular h emoglobin (mass per erythrocyte) 32 pg 25-34 Automated erythrocyte mean corpuscular h emoglobin concentration measurement (mass/volume) 33 g/dL 32-36 Automated erythrocyte distribution width ratio 13. 5 % 10.0- 14.5 Automated blood platelet count [...] 10*3 1.0-4.0 Blood monocytes automated count (number/volume) 0. 5 10*3 0.0-1.0 Automated eosinophil count 0.4 10*3/uL 0 .0-0.3 Automated blood basophil count (count/volume) 0.0 10*3/uL 0.0-0.1 Comprehensive metabolic panel - 10/09/16 06:34 Serum or plasma sodium measurement (moles/volume) 138 mmol/L 135-145 Serum or plasma potassium measurement (moles/volume) 3.9 mmol/L 3.6-5.0 Serum or plasma chloride measurement (moles/volume) 107 mmol/L 98-107 Carbon dioxide 22 mmol/L 21-32 Serum or plasma anion gap determination (moles/volume) 9 mmol/L 5-14 Serum or plasma urea nitrogen measurement (mass/volume ) 5 mg/dL 7-18 Serum or plasma creatinine measurement (mass/volume) 0.63 mg/dL 0.60-1.30 Serum or plasma urea nitrogen/creatinine mass ratio 8 0-20 Serum or plasma creatinine measurement w ith calculation of estimated glomerular filtration rate > NRG Serum or plasma glucose measurement (mass/volume) 121 mg/dL 70-105 Serum or plasma calcium measurement (mass/volume) 9.0 mg/dL 8.5-10.1 Serum or plasma total bilirubin measurement (mass/volu me) 1.4 mg/dL 0.1-1.0 Serum or plasma alkaline phosphatase zhanna surement (enzymatic activity/volume) 98 U/L 40-136 Serum or plasma aspartate aminotransfera se measurement (enzymatic activity/volume) 56 U/L 5-34 Serum or plasma alanine aminotransferase measurement (enzymatic activity/volume) 31 U/L 0-55 Serum or plasma protein measurement (mass/volume) 8.0 g/dL 6.4-8.2 Serum or plasma albumin measurement (mass/volume) 3.7 g/dL 3.2-4.5 Serum or plasma amylase measurement (enz ymatic activity/volume) - 10/09/16 06:34 Serum or plasma amylase measurement (enzymatic activit y/volume) 57 U/L 25-125 Lipase - 10/09/16 06:34 Lipase 18 U/L 8-78 Complete blood count (CBC) with automate d white blood cell (WBC) differential - 12/05/16 10:10 Blood leukocytes automated count (number/volume) 8.1 10*3/uL 4.3-11.0 Blood erythrocytes automated count (number/volume) 4.33 10*6/uL 4.35-5.85 Venous blood hemoglobin measurement (mass/volume) 13.4 g/dL 11.5-16.0 Blood hematocrit (volume fraction) 39 % 35-52 Automated erythrocyte mean corpuscular volume 91 [ foz_us] 80-99 Automated erythrocyte mean corpuscular h emoglobin (mass per erythrocyte) 31 pg 25-34 Automated erythrocyte mean corpuscular h emoglobin concentration measurement (mass/volume) 34 g/dL 32-36 Automated erythrocyte distribution width ratio 15. 2 % 10.0- 14.5 Automated blood platelet count [...] 10*3 1.0-4.0 Blood monocytes automated count (number/volume) 0. 6 10*3 0.0-1.0 Automated eosinophil count 0.2 10*3/uL 0 .0-0.3 Automated blood basophil count (count/volume) 0.1 10*3/uL 0.0-0.1 Serum heterophile antibody titer - 12/05 10:10 Serum heterophile antibody titer NEGATIVE NEGATIVE Comprehensive metabolic panel - 12/05/16 10:10 Serum or plasma sodium measurement (moles/volume) 140 mmol/L 135-145 Serum or plasma potassium measurement (moles/volume) 3.4 mmol/L 3.6-5.0 Serum or plasma chloride measurement (moles/volume) 102 mmol/L 98-107 Carbon dioxide 21 mmol/L 21-32 Serum or plasma anion gap determination (moles/volume) 17 mmol/L 5-14 Serum or plasma urea nitrogen measurement (mass/volume ) 3 mg/dL 7-18 Serum or plasma creatinine measurement (mass/volume) 0.62 mg/dL 0.60-1.30 Serum or plasma urea nitrogen/creatinine mass ratio 5 NRG Serum or plasma creatinine measurement w ith calculation of estimated glomerular filtration rate > NRG Serum or plasma glucose measurement (mass/volume) 117 mg/dL 70-105 Serum or plasma calcium measurement (mass/volume) 9.4 mg/dL 8.5-10.1 Serum or plasma total bilirubin measurement (mass/volu me) 1.0 mg/dL 0.1-1.0 Serum or plasma alkaline phosphatase zhanna surement (enzymatic activity/volume) 109 U/L 40-136 Serum or plasma aspartate aminotransfera se measurement (enzymatic activity/volume) 108 U/L 5-34 Serum or plasma alanine aminotransferase measurement (enzymatic activity/volume) 54 U/L 0-55 Serum or plasma protein measurement (mass/volume) 9.0 g/dL 6.4-8.2 Serum or plasma albumin measurement (mass/volume) 4.0 g/dL 3.2-4.5 Lipase - 12/05/16 10:10 Lipase 24 U/L 8-78 Serum or plasma ethanol measurement (mas s/volume) - 12/05/16 10:45 Serum or plasma ethanol measurement (mass/volume) < mg/dL <10 Complete urinalysis with reflex to cultu re - 12/05/16 11:43 Urine color determination YELLOW NRG Urine clarity determination SLIGHTLY CLOUDY NRG Urine pH measurement by test strip 6 5-9 Specific gravity of urine by test strip 1.015 1.016-1.022 Urine protein assay by test strip, semi-quantitative 1+ NEGATIVE Urine glucose detection by automated test strip NE GATIVE NEGATIVE Erythrocytes detection in urine sediment by light micr oscopy NEGATIVE NEGATIVE Urine ketones detection by automated test strip 3+ NEGATIVE Urine nitrite detection by test strip NEGATIVE NEGATIVE Urine total bilirubin detection by test strip NEGA TIVE NEGATIVE Urine urobilinogen measurement by automated test strip (mass/volume) 1 mg/dL NORMAL Urine leukocyte esterase detection by dipstick NEG ATIVE NEGATIVE Automated urine sediment erythrocyte cou nt by microscopy (number/high power field) NONE NRG Automated urine sediment leukocyte count by microscopy (number/high power field) RARE NRG Bacteria detection in urine sediment by light microsco py FEW NRG Squamous epithelial cells detection in u rine sediment by light microscopy 5-10 NRG Crystals detection in urine sediment by light microsco py NONE NRG Casts detection in urine sediment by light microscopy NONE NRG Mucus detection in urine sediment by light microscopy SMALL NRG Complete urinalysis with reflex to culture NO NRG Yeast detection in urine sediment by light microscopy FEW NRG Complete blood count (CBC) with automate d white blood cell (WBC) differential - 12/06/16 05:17 Blood leukocytes automated count (number/volume) 6.2 10*3/uL 4.3-11.0 Blood erythrocytes automated count (number/volume) 4.03 10*6/uL 4.35-5.85 Venous blood hemoglobin measurement (mass/volume) 12.4 g/dL 11.5-16.0 Blood hematocrit (volume fraction) 38 % 35-52 Automated erythrocyte mean corpuscular volume 93 [ foz_us] 80-99 Automated erythrocyte mean corpuscular h emoglobin (mass per erythrocyte) 31 pg 25-34 Automated erythrocyte mean corpuscular h emoglobin concentration measurement (mass/volume) 33 g/dL 32-36 Automated erythrocyte distribution width ratio 15. 1 % 10.0- 14.5 Automated blood platelet count [...] 10*3 1.0-4.0 Blood monocytes automated count (number/volume) 0. 4 10*3 0.0-1.0 Automated eosinophil count 0.4 10*3/uL 0 .0-0.3 Automated blood basophil count (count/volume) 0.0 10*3/uL 0.0-0.1 Comprehensive metabolic panel - 12/06/16 05:17 Serum or plasma sodium measurement (moles/volume) 138 mmol/L 135-145 Serum or plasma potassium measurement (moles/volume) 3.4 mmol/L 3.6-5.0 Serum or plasma chloride measurement (moles/volume) 102 mmol/L 98-107 Carbon dioxide 25 mmol/L 21-32 Serum or plasma anion gap determination (moles/volume) 11 mmol/L 5-14 Serum or plasma urea nitrogen measurement (mass/volume ) 3 mg/dL 7-18 Serum or plasma creatinine measurement (mass/volume) 0.54 mg/dL 0.60-1.30 Serum or plasma urea nitrogen/creatinine mass ratio 6 NRG Serum or plasma creatinine measurement w ith calculation of estimated glomerular filtration rate > NRG Serum or plasma glucose measurement (mass/volume) 92 mg/dL 70-105 Serum or plasma calcium measurement (mass/volume) 8.6 mg/dL 8.5-10.1 Serum or plasma total bilirubin measurement (mass/volu me) 1.4 mg/dL 0.1-1.0 Serum or plasma alkaline phosphatase zhanna surement (enzymatic activity/volume) 92 U/L 40-136 Serum or plasma aspartate aminotransfera se measurement (enzymatic activity/volume) 79 U/L 5-34 Serum or plasma alanine aminotransferase measurement (enzymatic activity/volume) 45 U/L 0-55 Serum or plasma protein measurement (mass/volume) 7.9 g/dL 6.4-8.2 Serum or plasma albumin measurement (mass/volume) 3.6 g/dL 3.2-4.5 Complete blood count (CBC) with automate d white blood cell (WBC) differential - 01/10/17 11:20 Blood leukocytes automated count (number/volume) 7.5 10*3/uL 4.3-11.0 Blood erythrocytes automated count (number/volume) 4.19 10*6/uL 4.35-5.85 Venous blood hemoglobin measurement (mass/volume) 13.1 g/dL 11.5-16.0 Blood hematocrit (volume fraction) 40 % 35-52 Automated erythrocyte mean corpuscular volume 94 [ foz_us] 80-99 Automated erythrocyte mean corpuscular h emoglobin (mass per erythrocyte) 31 pg 25-34 Automated erythrocyte mean corpuscular h emoglobin concentration measurement (mass/volume) 33 g/dL 32-36 Automated erythrocyte distribution width ratio 16. 0 % 10.0- 14.5 Automated blood platelet count [...] 10*3 1.0-4.0 Blood monocytes automated count (number/volume) 0. 7 10*3 0.0-1.0 Automated eosinophil count 0.2 10*3/uL 0 .0-0.3 Automated blood basophil count (count/volume) 0.1 10*3/uL 0.0-0.1 Comprehensive metabolic panel - 01/10/17 11:20 Serum or plasma sodium measurement (moles/volume) 135 mmol/L 135-145 Serum or plasma potassium measurement (moles/volume) 3.5 mmol/L 3.6-5.0 Serum or plasma chloride measurement (moles/volume) 98 mmol/L 98-107 Carbon dioxide 29 mmol/L 21-32 Serum or plasma anion gap determination (moles/volume) 8 mmol/L 5-14 Serum or plasma urea nitrogen measurement (mass/volume ) 4 mg/dL 7-18 Serum or plasma creatinine measurement (mass/volume) 0.63 mg/dL 0.60-1.30 Serum or plasma urea nitrogen/creatinine mass ratio 6 NRG Serum or plasma creatinine measurement w ith calculation of estimated glomerular filtration rate > NRG Serum or plasma glucose measurement (mass/volume) 114 mg/dL 70-105 Serum or plasma calcium measurement (mass/volume) 8.7 mg/dL 8.5-10.1 Serum or plasma total bilirubin measurement (mass/volu me) 1.3 mg/dL 0.1-1.0 Serum or plasma alkaline phosphatase zhanna surement (enzymatic activity/volume) 131 U/L 40-136 Serum or plasma aspartate aminotransfera se measurement (enzymatic activity/volume) 91 U/L 5-34 Serum or plasma alanine aminotransferase measurement (enzymatic activity/volume) 53 U/L 0-55 Serum or plasma protein measurement (mass/volume) 8.4 g/dL 6.4-8.2 Serum or plasma albumin measurement (mass/volume) 3.6 g/dL 3.2-4.5 Lipase - 01/10/17 11:20 Lipase 13 U/L 8-78 Serum or plasma ethanol measurement (mas s/volume) - 01/10/17 11:20 Serum or plasma ethanol measurement (mass/volume) < mg/dL <10 PT panel in platelet poor plasma by coag ulation assay - 01/10/17 11:20 Prothrombin time (PT) in platelet poor plasma by coagu lation assay 14.6 s 12.2-14.7 INR in platelet poor plasma or blood by coagulation as say 1.1 0.8-1.4 Urine drug screening test - 01/10/17 13: 05 Urine phencyclidine detection by screening method NEGATIVE NEGATIVE Urine benzodiazepines detection by screening method NEGATIVE NEGATIVE Urine cocaine detection NEGATIVE NEGATI VE Urine amphetamines detection by screening method N EGATIVE NEGATIVE Urine methamphetamine detection by screening method NEGATIVE NEGATIVE Urine cannabinoids detection by screening method P OSITIVE NEGATIVE Urine opiates detection by screening method NEGATI VE NEGATIVE Urine barbiturates detection NEGATIVE N EGATIVE Screening urine tricyclic antidepressants detection NEGATIVE NEGATIVE Urine methadone detection by screening method NEGA TIVE NEGATIVE Urine oxycodone detection NEGATIVE NEGA TIVE Urine propoxyphene detection NEGATIVE N EGATIVE Complete urinalysis with reflex to cultu re - 01/10/17 13:05 Urine color determination YELLOW NRG Urine clarity determination CLEAR NR G Urine pH measurement by test strip 8 5-9 Specific gravity of urine by test strip 1.010 1.016-1.022 Urine protein assay by test strip, semi-quantitative NEGATIVE NEGATIVE Urine glucose detection by automated test strip NE GATIVE NEGATIVE Erythrocytes detection in urine sediment by light micr oscopy NEGATIVE NEGATIVE Urine ketones detection by automated test strip NE GATIVE NEGATIVE Urine nitrite detection by test strip NEGATIVE NEGATIVE Urine total bilirubin detection by test strip NEGA TIVE NEGATIVE Urine urobilinogen measurement by automated test strip (mass/volume) NORMAL NORMAL Urine leukocyte esterase detection by dipstick NEG ATIVE NEGATIVE Automated urine sediment erythrocyte cou nt by microscopy (number/high power field) NONE NRG Automated urine sediment leukocyte count by microscopy (number/high power field) NONE NRG Bacteria detection in urine sediment by light microsco py NEGATIVE NRG Squamous epithelial cells detection in u rine sediment by light microscopy 0-2 NRG Crystals detection in urine sediment by light microsco py NONE NRG Casts detection in urine sediment [...] 5-14 Serum or plasma urea nitrogen measurement (mass/volume ) 10 mg/dL 7-18 Serum or plasma creatinine measurement (mass/volume) 0.66 mg/dL 0.60-1.30 Serum or plasma urea nitrogen/creatinine mass ratio 15 NRG Serum or plasma creatinine measurement w ith calculation of estimated glomerular filtration rate > NRG Serum or plasma glucose measurement (mass/volume) 105 mg/dL 70-105 Serum or plasma calcium measurement (mass/volume) 9.2 mg/dL 8.5-10.1 Serum or plasma total bilirubin measurement (mass/volu me) 0.6 mg/dL 0.1-1.0 Serum or plasma alkaline phosphatase zhanna surement (enzymatic activity/volume) 160 U/L 40-136 Serum or plasma aspartate aminotransfera se measurement (enzymatic activity/volume) 45 U/L 5-34 Serum or plasma alanine aminotransferase measurement (enzymatic activity/volume) 24 U/L 0-55 Serum or plasma protein measurement (mass/volume) 8.5 g/dL 6.4-8.2 Serum or plasma albumin measurement (mass/volume) 3.7 g/dL 3.2-4.5 Lipase - 03/27/17 11:05 Lipase 37 U/L 8-78 Serum or plasma ethanol measurement (mas s/volume) - 03/27/17 11:05 Serum or plasma ethanol measurement (mass/volume) < mg/dL <10 Complete blood count (CBC) with automate d white blood cell (WBC) differential - 03/27/17 11:25 Blood leukocytes automated count (number/volume) 7.0 10*3/uL 4.3-11.0 Blood erythrocytes automated count (number/volume) 4.15 10*6/uL 4.35-5.85 Venous blood hemoglobin measurement (mass/volume) 13.1 g/dL 11.5-16.0 Blood hematocrit (volume fraction) 40 % 35-52 Automated erythrocyte mean corpuscular volume 95 [ foz_us] 80-99 Automated erythrocyte mean corpuscular h emoglobin (mass per erythrocyte) 32 pg 25-34 Automated erythrocyte mean corpuscular h emoglobin concentration measurement (mass/volume) 33 g/dL 32-36 Automated erythrocyte distribution width ratio 15. 3 % 10.0- 14.5 Automated blood platelet count [...] 10*3 1.0-4.0 Blood monocytes automated count (number/volume) 0. 6 10*3 0.0-1.0 Automated eosinophil count 0.4 10*3/uL 0 .0-0.3 Automated blood basophil count (count/volume) 0.1 10*3/uL 0.0-0.1 Complete urinalysis with reflex to cultu re - 03/27/17 11:25 Urine color determination YELLOW NRG Urine clarity determination SLIGHTLY CLOUDY NRG Urine pH measurement by test strip 7 5-9 Specific gravity of urine by test strip 1.010 1.016-1.022 Urine protein assay by test strip, semi-quantitative NEGATIVE NEGATIVE Urine glucose detection by automated test strip NE GATIVE NEGATIVE Erythrocytes detection in urine sediment by light micr oscopy NEGATIVE NEGATIVE Urine ketones detection by automated test strip NE GATIVE NEGATIVE Urine nitrite detection by test strip NEGATIVE NEGATIVE Urine total bilirubin detection by test strip NEGA TIVE NEGATIVE Urine urobilinogen measurement by automated test strip (mass/volume) 1 mg/dL NORMAL Urine leukocyte esterase detection by dipstick NEG ATIVE NEGATIVE Automated urine sediment erythrocyte cou nt by microscopy (number/high power field) NONE NRG Automated urine sediment leukocyte count by microscopy (number/high power field) NONE NRG Bacteria detection in urine sediment by light microsco py NEGATIVE NRG Squamous epithelial cells detection in u rine sediment by light microscopy TNTC NRG Crystals detection in urine sediment by light microsco py NONE NRG Casts detection in urine sediment by light microscopy NONE NRG Mucus detection in urine sediment by light microscopy NEGATIVE NRG Complete urinalysis with reflex to culture NO NRG Yeast detection in urine sediment by light microscopy MODERATE NRG Complete blood count (CBC) with automate d white blood cell (WBC) differential - 09/20/17 08:30 Blood leukocytes automated count (number/volume) 7.0 10*3/uL 4.3-11.0 Blood erythrocytes automated count (number/volume) 4.18 10*6/uL 4.35-5.85 Venous blood hemoglobin measurement (mass/volume) 13.2 g/dL 11.5-16.0 Blood hematocrit (volume fraction) 38 % 35-52 Automated erythrocyte mean corpuscular volume 90 [ foz_us] 80-99 Automated erythrocyte mean corpuscular h emoglobin (mass per erythrocyte) 32 pg 25-34 Automated erythrocyte mean corpuscular h emoglobin concentration measurement (mass/volume) 35 g/dL 32-36 Automated erythrocyte distribution width ratio 15. 8 % 10.0- 14.5 Automated blood platelet count [...] 10*3 1.0-4.0 Blood monocytes automated count (number/volume) 0. 7 10*3 0.0-1.0 Automated eosinophil count 0.2 10*3/uL 0 .0-0.3 Automated blood basophil count (count/volume) 0.1 10*3/uL 0.0-0.1 PT panel in platelet poor plasma by coag ulation assay - 09/20/17 08:30 Prothrombin time (PT) in platelet poor plasma by coagu lation assay 14.4 s 12.2-14.7 INR in platelet poor plasma or blood by coagulation as say 1.1 0.8-1.4 Activated partial thromboplastin time (a PTT) in platelet poor plasma bycoagulation assay - 09/20/17 08:30 Activated partial thromboplastin time (a PTT) in platelet poor plasma bycoagulation assay 32 s 24-35 Comprehensive metabolic panel - 09/20/17 08:30 Serum or plasma sodium measurement (moles/volume) 138 mmol/L 135-145 Serum or plasma potassium measurement (moles/volume) 3.4 mmol/L 3.6-5.0 Serum or plasma chloride measurement (moles/volume) 96 mmol/L 98-107 Carbon dioxide 23 mmol/L 21-32 Serum or plasma anion gap determination (moles/volume) 19 mmol/L 5-14 Serum or plasma urea nitrogen measurement (mass/volume ) 5 mg/dL 7-18 Serum or plasma creatinine measurement (mass/volume) 0.60 mg/dL 0.60-1.30 Serum or plasma urea nitrogen/creatinine mass ratio 8 NRG Serum or plasma creatinine measurement w ith calculation of estimated glomerular filtration rate > NRG Serum or plasma glucose measurement (mass/volume) 81 mg/dL 70-105 Serum or plasma calcium measurement (mass/volume) 9.0 mg/dL 8.5-10.1 Serum or plasma total bilirubin measurement (mass/volu me) 1.1 mg/dL 0.1-1.0 Serum or plasma alkaline phosphatase zhanna surement (enzymatic activity/volume) 84 U/L 40-136 Serum or plasma aspartate aminotransfera se measurement (enzymatic activity/volume) 112 U/L 5-34 Serum or plasma alanine aminotransferase measurement (enzymatic activity/volume) 58 U/L 0-55 Serum or plasma protein measurement (mass/volume) 8.4 g/dL 6.4-8.2 Serum or plasma albumin measurement (mass/volume) 4.0 g/dL 3.2-4.5 Lipase - 09/20/17 08:30 Lipase 22 U/L 8-78 Serum or plasma ethanol measurement (mas s/volume) - 09/20/17 08:30 Serum or plasma ethanol measurement (mass/volume) 50 mg/dL <10 Urine drug screening test - 09/20/17 08: 33 Urine phencyclidine detection by screening method NEGATIVE NEGATIVE Urine benzodiazepines detection by screening method POSITIVE NEGATIVE Urine cocaine detection NEGATIVE NEGATI VE Urine amphetamines detection by screening method N EGATIVE NEGATIVE Urine methamphetamine detection by screening method NEGATIVE NEGATIVE Urine cannabinoids detection by screening method P OSITIVE NEGATIVE Urine opiates detection by screening method NEGATI VE NEGATIVE Urine barbiturates detection NEGATIVE N EGATIVE Screening urine tricyclic antidepressants detection NEGATIVE NEGATIVE Urine methadone detection by screening method NEGA TIVE NEGATIVE Urine oxycodone detection NEGATIVE NEGA TIVE Urine propoxyphene detection NEGATIVE N EGATIVE Complete urinalysis with reflex to cultu re - 09/20/17 08:33 Urine color determination YELLOW NRG Urine clarity determination CLEAR NR G Urine pH measurement by test strip 6 5-9 Specific gravity of urine by test strip 1.015 1.016-1.022 Urine protein assay by test strip, semi-quantitative NEGATIVE NEGATIVE Urine glucose detection by automated test strip NE GATIVE NEGATIVE Erythrocytes detection in urine sediment by light micr oscopy NEGATIVE NEGATIVE Urine ketones detection by automated test strip 3+ NEGATIVE Urine nitrite detection by test strip NEGATIVE NEGATIVE Urine total bilirubin detection by test strip NEGA TIVE NEGATIVE Urine urobilinogen measurement by automated test strip (mass/volume) NORMAL NORMAL Urine leukocyte esterase detection by dipstick NEG ATIVE NEGATIVE Automated urine sediment erythrocyte cou nt by microscopy (number/high power field) NONE NRG Automated urine sediment leukocyte count by microscopy (number/high power field) NONE NRG Bacteria detection in urine sediment by light microsco py NEGATIVE NRG Squamous epithelial cells detection in u rine sediment by light microscopy 10-25 NRG Crystals detection in urine sediment by light microsco py NONE NRG Casts detection in urine sediment [...] CFU/ML NRG Complete blood count (CBC) with automate d white blood cell (WBC) differential - 05/15/18 10:17 Blood leukocytes automated count (number/volume) 5.7 10*3/uL 4.3-11.0 Blood erythrocytes automated count (number/volume) 4.45 10*6/uL 4.35-5.85 Venous blood hemoglobin measurement (mass/volume) 13.2 g/dL 11.5-16.0 Blood hematocrit (volume fraction) 40 % 35-52 Automated erythrocyte mean corpuscular volume 89 [ foz_us] 80-99 Automated erythrocyte mean corpuscular h emoglobin (mass per erythrocyte) 30 pg 25-34 Automated erythrocyte mean corpuscular h emoglobin concentration measurement (mass/volume) 33 g/dL 32-36 Automated erythrocyte distribution width ratio 15. 7 % 10.0- 14.5 Automated blood platelet count [...] 10*3 1.0-4.0 Blood monocytes automated count (number/volume) 0. 5 10*3 0.0-1.0 Automated eosinophil count 0.1 10*3/uL 0 .0-0.3 Automated blood basophil count (count/volume) 0.0 10*3/uL 0.0-0.1 Comprehensive metabolic panel - 05/15/18 10:17 Serum or plasma sodium measurement (moles/volume) 136 mmol/L 135-145 Serum or plasma potassium measurement (moles/volume) 3.8 mmol/L 3.6-5.0 Serum or plasma chloride measurement (moles/volume) 97 mmol/L 98-107 Carbon dioxide 27 mmol/L 21-32 Serum or plasma anion gap determination (moles/volume) 12 mmol/L 5-14 Serum or plasma urea nitrogen measurement (mass/volume ) 7 mg/dL 7-18 Serum or plasma creatinine measurement (mass/volume) 0.65 mg/dL 0.60-1.30 Serum or plasma urea nitrogen/creatinine mass ratio 11 NRG Serum or plasma creatinine measurement w ith calculation of estimated glomerular filtration rate > NRG Serum or plasma glucose measurement (mass/volume) 101 mg/dL 70-105 Serum or plasma calcium measurement (mass/volume) 9.5 mg/dL 8.5-10.1 Serum or plasma total bilirubin measurement (mass/volu me) 1.1 mg/dL 0.1-1.0 Serum or plasma alkaline phosphatase zhanna surement (enzymatic activity/volume) 90 U/L 40-136 Serum or plasma aspartate aminotransfera se measurement (enzymatic activity/volume) 71 U/L 5-34 Serum or plasma alanine aminotransferase measurement (enzymatic activity/volume) 35 U/L 0-55 Serum or plasma protein measurement (mass/volume) 8.7 g/dL 6.4-8.2 Serum or plasma albumin measurement (mass/volume) 4.1 g/dL 3.2-4.5 CALCIUM CORRECTED 9.4 mg/dL 8.5-10.1 Complete urinalysis with reflex to cultu re - 05/15/18 10:17 Urine color determination YELLOW NRG Urine clarity determination CLEAR NR G Urine pH measurement by test strip 7 5-9 Specific gravity of urine by test strip 1.010 1.016-1.022 Urine protein assay by test strip, semi-quantitative NEGATIVE NEGATIVE Urine glucose detection by automated test strip NE GATIVE NEGATIVE Erythrocytes detection in urine sediment by light micr oscopy NEGATIVE NEGATIVE Urine ketones detection by automated test strip 3+ NEGATIVE Urine nitrite detection by test strip NEGATIVE NEGATIVE Urine total bilirubin detection by test strip NEGA TIVE NEGATIVE Urine urobilinogen measurement by automated test strip (mass/volume) NORMAL NORMAL Urine leukocyte esterase detection by dipstick NEG ATIVE NEGATIVE Automated urine sediment erythrocyte cou nt by microscopy (number/high power field) NONE NRG Automated urine sediment leukocyte count by microscopy (number/high power field) [HPF] NRG Bacteria detection in urine sediment by light microsco py TRACE NRG Squamous epithelial cells detection in u rine sediment by light microscopy 10-25 NRG Crystals detection in urine sediment by light microsco py NONE NRG Casts detection in urine sediment by light microscopy PRESENT NRG Mucus detection in urine sediment by light microscopy MODERATE NRG Complete urinalysis with reflex to culture NO NRG Yeast detection in urine sediment by light microscopy MODERATE NRG Hyaline casts detection in urine sediment by light angelica roscopy RARE NRG Renal epithelial cells detection in urin e sediment by light microscopy NONE NRG Granular casts detection in urine sediment by light mi croscopy RARE NRG Complete blood count (CBC) with automate d white blood cell (WBC) differential - 11/26/18 08:57 Blood leukocytes automated count (number/volume) 5.2 10*3/uL 4.3-11.0 Blood erythrocytes automated count (number/volume) 4.75 10*6/uL 4.35-5.85 Venous blood hemoglobin measurement (mass/volume) 14.4 g/dL 11.5-16.0 Blood hematocrit (volume fraction) 41 % 35-52 Automated erythrocyte mean corpuscular volume 87 [ foz_us] 80-99 Automated erythrocyte mean corpuscular h emoglobin (mass per erythrocyte) 30 pg 25-34 Automated erythrocyte mean corpuscular h emoglobin concentration measurement (mass/volume) 35 g/dL 32-36 Automated erythrocyte distribution width ratio 15. 3 % 10.0- 14.5 Automated blood platelet count (count/volume) 172 10*3/uL 130-400 Automated blood platelet mean volume measurement 10.7 [foz_us] 7.4-10.4 Automated blood neutrophils/100 leukocytes 67 % 42-75 Automated blood lymphocytes/100 leukocytes 24 % 12-44 Blood monocytes/100 leukocytes 7 % 0-12 Automated blood eosinophils/100 leukocytes 1 % 0-10 Automated blood basophils/100 leukocytes 1 % 0-10 Blood neutrophils automated count (number/volume) 3.5 10*3 1.8-7.8 Blood lymphocytes automated count (number/volume) 1.3 10*3 1.0-4.0 Blood monocytes automated count (number/volume) 0. 4 10*3 0.0-1.0 Automated eosinophil count 0.1 10*3/uL 0 .0-0.3 Automated blood basophil count (count/volume) 0.1 10*3/uL 0.0-0.1 Comprehensive metabolic panel - 11/26/18 08:57 Serum or plasma sodium measurement (moles/volume) 138 mmol/L 135-145 Serum or plasma potassium measurement (moles/volume) 3.6 mmol/L 3.6-5.0 Serum or plasma chloride measurement (moles/volume) 99 mmol/L 98-107 Carbon dioxide 24 mmol/L 21-32 Serum or plasma anion gap determination (moles/volume) 15 mmol/L 5-14 Serum or plasma urea nitrogen measurement (mass/volume ) 5 mg/dL 7-18 Serum or plasma creatinine measurement (mass/volume) 0.65 mg/dL 0.60-1.30 Serum or plasma urea nitrogen/creatinine mass ratio 8 NRG Serum or plasma creatinine measurement w ith calculation of estimated glomerular filtration rate > NRG Serum or plasma glucose measurement (mass/volume) 131 mg/dL 70-105 Serum or plasma calcium measurement (mass/volume) 9.8 mg/dL 8.5-10.1 Serum or plasma total bilirubin measurement (mass/volu me) 1.0 mg/dL 0.1-1.0 Serum or plasma alkaline phosphatase zhanna surement (enzymatic activity/volume) 115 U/L 40-136 Serum or plasma aspartate aminotransfera se measurement (enzymatic activity/volume) 112 U/L 5-34 Serum or plasma alanine aminotransferase measurement (enzymatic activity/volume) 60 U/L 0-55 Serum or plasma protein measurement (mass/volume) 8.9 g/dL 6.4-8.2 Serum or plasma albumin measurement (mass/volume) 4.6 g/dL 3.2-4.5 Magnesium - 11/26/18 08:57 Magnesium 1.9 mg/dL 1.8-2.4 Lipase - 11/26/18 08:57 Lipase 35 U/L 8-78 Serum or plasma C reactive protein measu rement (mass/volume) - 11/26/18 08:57 Serum or plasma C reactive protein measurement (mass/v olume) 0.04 mg/dL 0.00-0.50 Complete urinalysis with reflex to cultu re - 11/26/18 09:41 Urine color determination YELLOW NRG Urine clarity determination CLEAR NR G Urine pH measurement by test strip 8 5-9 Specific gravity of urine by test strip 1.015 1.016-1.022 Urine protein assay by test strip, semi-quantitative 1+ NEGATIVE Urine glucose detection by automated test strip NE GATIVE NEGATIVE Erythrocytes detection in urine sediment by light micr oscopy NEGATIVE NEGATIVE Urine ketones detection by automated test strip 2+ NEGATIVE Urine nitrite detection by test strip NEGATIVE NEGATIVE Urine total bilirubin detection by test strip NEGA TIVE NEGATIVE Urine urobilinogen measurement by automated test strip (mass/volume) NORMAL NORMAL Urine leukocyte esterase detection by dipstick NEG ATIVE NEGATIVE Automated urine sediment erythrocyte cou nt by microscopy (number/high power field) NONE NRG Automated urine sediment leukocyte count by microscopy (number/high power field) NONE NRG Bacteria detection in urine sediment by light microsco py NEGATIVE NRG Squamous epithelial cells detection in u rine sediment by light microscopy 2-5 NRG Crystals detection in urine sediment by light microsco py NONE NRG Casts detection in urine sediment by light microscopy NONE NRG Mucus detection in urine sediment by light microscopy NEGATIVE NRG Complete urinalysis with reflex to culture NO NRG Yeast detection in urine sediment by light microscopy FEW NRG Complete blood count (CBC) with automate d white blood cell (WBC) differential - 08/20/19 10:30 Blood leukocytes automated count (number/volume) 4.9 10*3/uL 4.3-11.0 Blood erythrocytes automated count (number/volume) 4.31 10*6/uL 4.35-5.85 Venous blood hemoglobin measurement (mass/volume) 12.6 g/dL 11.5-16.0 Blood hematocrit (volume fraction) 38 % 35-52 Automated erythrocyte mean corpuscular volume 87 [ foz_us] 80-99 Automated erythrocyte mean corpuscular h emoglobin (mass per erythrocyte) 29 pg 25-34 Automated erythrocyte mean corpuscular h emoglobin concentration measurement (mass/volume) 34 g/dL 32-36 Automated erythrocyte distribution width ratio 18. 1 % 10.0- 14.5 Automated blood platelet count (count/volume) 142 10*3/uL 130-400 Automated blood platelet mean volume measurement 11.6 [foz_us] 7.4-10.4 Automated blood neutrophils/100 leukocytes 75 % 42-75 Automated blood lymphocytes/100 leukocytes 12 % 12-44 Blood monocytes/100 leukocytes 10 % 0-12 Automated blood eosinophils/100 leukocytes 3 % 0-10 Automated blood basophils/100 leukocytes 1 % 0-10 Blood neutrophils automated count (number/volume) 3.7 10*3 1.8-7.8 Blood lymphocytes automated count (number/volume) 0.6 10*3 1.0-4.0 Blood monocytes automated count (number/volume) 0. 5 10*3 0.0-1.0 Automated eosinophil count 0.1 10*3/uL 0 .0-0.3 Automated blood basophil count (count/volume) 0.0 10*3/uL 0.0-0.1 Complete urinalysis with reflex to cultu re - 08/20/19 10:30 Urine color determination YELLOW NRG Urine clarity determination SL CLOUDY N RG Urine pH measurement by test strip 5.5 5-9 Specific gravity of urine by test strip 1.015 1.016-1.022 Urine protein assay by test strip, semi-quantitative 1+ NEGATIVE Urine glucose detection by automated test strip NE GATIVE NEGATIVE Erythrocytes detection in urine sediment by light micr oscopy NEGATIVE NEGATIVE Urine ketones detection by automated test strip TR LAURA NEGATIVE Urine nitrite detection by test strip NEGATIVE NEGATIVE Urine total bilirubin detection by test strip 1+ NEGATIVE Urine urobilinogen measurement by automated test strip (mass/volume) 0.2 mg/dL < = 1.0 Urine leukocyte esterase detection by dipstick TRA CE NEGATIVE Automated urine sediment erythrocyte cou nt by microscopy (number/high power field) NONE NRG Automated urine sediment leukocyte count by microscopy (number/high power field) [HPF] NRG Bacteria detection in urine sediment by light microsco py MODERATE NRG Squamous epithelial cells detection in u rine sediment by light microscopy TNTC NRG Crystals detection in urine sediment by light microsco py NONE NRG Casts detection in urine sediment by light microscopy NONE NRG Mucus detection in urine sediment by light microscopy NEGATIVE NRG Complete urinalysis with reflex to culture NO NRG Blood lactic acid measurement (moles/vol ume) - 08/20/19 10:30 Blood lactic acid measurement (moles/volume) 2.44 mmol/L 0.50-2.00 PT panel in platelet poor plasma by coag ulation assay - 08/20/19 10:30 Prothrombin time (PT) in platelet poor plasma by coagu lation assay 15.2 s 12.2-14.7 INR in platelet poor plasma or blood by coagulation as say 1.2 0.8-1.4 Activated partial thromboplastin time (a PTT) in platelet poor plasma bycoagulation assay - 08/20/19 10:30 Activated partial thromboplastin time (a PTT) in platelet poor plasma bycoagulation assay 32 s 24-35 Comprehensive metabolic panel - 08/20/19 10:30 Serum or plasma sodium measurement (moles/volume) 130 mmol/L 135-145 Serum or plasma potassium measurement (moles/volume) 2.6 mmol/L 3.6-5.0 Serum or plasma chloride measurement (moles/volume) 92 mmol/L 98-107 Carbon dioxide 25 mmol/L 21-32 Serum or plasma anion gap determination (moles/volume) 13 mmol/L 5-14 Serum or plasma urea nitrogen measurement (mass/volume ) 3 mg/dL 7-18 Serum or plasma creatinine measurement (mass/volume) 0.71 mg/dL 0.60-1.30 Serum or plasma urea nitrogen/creatinine mass ratio 4 NRG Serum or plasma creatinine measurement w ith calculation of estimated glomerular filtration rate > NRG Serum or plasma glucose measurement (mass/volume) 109 mg/dL 70-105 Serum or plasma calcium measurement (mass/volume) 8.3 mg/dL 8.5-10.1 Serum or plasma total bilirubin measurement (mass/volu me) 1.9 mg/dL 0.1-1.0 Serum or plasma alkaline phosphatase zhanna surement (enzymatic activity/volume) 69 U/L 40-136 Serum or plasma aspartate aminotransfera se measurement (enzymatic activity/volume) 52 U/L 5-34 Serum or plasma alanine aminotransferase measurement (enzymatic activity/volume) 22 U/L 0-55 Serum or plasma protein measurement (mass/volume) 8.6 g/dL 6.4-8.2 Serum or plasma albumin measurement (mass/volume) 3.5 g/dL 3.2-4.5 CALCIUM CORRECTED 8.7 mg/dL 8.5-10.1 Serum ragweed IgE antibody assay - 08/19 10:30 Serum ragweed IgE antibody assay 174 U/L 125-220 PROCALCITONIN (PCT) - 08/20/19 10:30 PROCALCITONIN (PCT) 0.06 ng/mL <0.10 Serum or plasma C reactive protein measu rement (mass/volume) - 08/20/19 10:30 Serum or plasma C reactive protein measurement (mass/v olume) 3.83 mg/dL 0.00-0.50 Coronavirus SARS-CoV-2 SO 2018 - 0 10:30 Coronavirus Ab [Units/volume] in Serum Negative Negative Bacterial blood culture - 08/20/19 10:30 Bacterial blood culture NG NRG Bacterial urine culture - 08/20/19 10:30 Bacterial urine culture [id number] NRG COLONY COUNT <10,000 NRG SUSCEPTIBILITY NO SUSCEPTIBILITY PERFORMED NRG Influenza virus A and B antigen detectio n - 08/20/19 10:55 FLU RESULT NEGATIVE FOR INFLUENZA A AND B ANTIGENS BY IA NRG Bacterial blood culture - 08/20/19 11:00 Bacterial blood culture NG NRG Encounters ACCT No. Visit Date/Time Discharge Status Pt. Type Provider Facility Loc./Unit Complaint [id number] 01/26/2009 00:00:00 01/26/2009 23:59:5 9 CLS Outpatient JOSHUA MARINO MIKE K [id number] 08/20/2019 10:01:00 020 12:05:00 DIS Outpatient PJ TREJO Vi [facility] ER COUGH [id number] 06/24/2019 08:17:00 020 11:25:00 DIS Outpatient CORETTA MCCRAY DO [facility] ENDO HX POLYPS [id number] 06/17/2019 06:40:00 020 23:59:59 CLS Outpatient CORETTA MCCRAY DO [facility] PREOP COLONOSCOPY [id number] 11/26/2018 08:46:00 019 11:29:00 DIS Emergency AROLDO MERCADO MD [facility] ER N/V [id number] 05/15/2018 08:30:00 019 12:10:00 DIS Emergency AROLDO MERCADO MD [facility] ER N/V;BACK PAIN [id number] 04/23/2018 09:48:00 019 23:59:59 CLS Emergency MARTIN ACUNA [facility] ER BACK PAIN,LT SHOULDER PAIN,FALL [id number] 12/19/2017 08:31:00 018 11:25:00 DIS Emergency GOLD HOWARD MD [facility] ER VOMITING,BACK P AIN,NAUSEA [id number] 09/20/2017 07:55:00 018 12:18:00 DIS Emergency GOLD HOWARD MD [facility] ER ABD PAIN [id number] 03/27/2017 09:55:00 017 13:22:00 DIS Emergency MARTIN ACUNA [facility] ER VOMITED BLOOD [id number] 01/10/2017 11:09:00 017 14:02:00 DIS Emergency IVY HARDY 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 RESIDENTIAL [facility] ER STOMACH PAIN [id number] 12/05/2016 13:15:00 017 12:30:00 DIS Inpatient GELLENRINKU CULVER DO [facility] 4TH N/V,DEHYDRATION ,CHRONIC BACK PAIN [id number] 10/19/2016 08:35:00 017 23:59:59 CLS Outpatient RINKU MANDEL DO [facility] RAD ABNORMAL MAMMO R92.8 [id number] 10/07/2016 22:20:00 017 11:20:00 DIS Inpatient GELLENRINKU CULVER DO [facility] 4TH ABDOMINAL PAIN [id number] 10/03/2016 08:43:00 017 23:59:59 CLS Outpatient RINKU MANDEL DO [facility] RAD YEARLY MAMMO [id number] 10/02/2016 09:49:00 017 23:59:59 CLS Outpatient RINKU MANDEL DO [facility] RAD POST MENOPAUSAL BLEEDING [id number] 09/06/2016 07:13:00 017 10:00:00 DIS Emergency VU DAGOBERTO MARINO [facility] ER THROWING UP BLOOD,BACK PAIN [id number] 09/01/2016 20:01:00 017 23:36:00 DIS Emergency AROLDO MERCADO MD [facility] ER COUGHING UP BLO OD [id number] 05/08/2016 09:12:00 017 13:00:00 DIS Emergency MAYAPJ [employer]ION [employer] 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 SUPERVISOR [facility] ER STOMACH/BACK PAIN [id number] 02/26/2016 16:23:00 016 19:04:00 DIS Emergency MAYA PJ [employer] EQUIPMENT SUPERVISOR [facility] ER CHEST PAIN, SOA [id number] 02/19/2016 22:43:00 016 23:54:00 DIS Emergency VU DAGOBERTO MARINO [facility] ER URINATION PAIN [id number] 02/08/2016 08:42:00 016 23:59:59 CLS Outpatient TEQUILA RINKU Mota [facility] RAD LUNG MASS VS MU CUS PLUG [id number] 01/18/2016 13:46:00 016 17:32:00 DIS Emergency AROLDO MERCADO MD [facility] ER CONFUSION WEAKN ESS [id number] 11/24/2015 11:02:00 016 23:59:59 CLS Outpatient TEQUILA MARINO RINKU Nakul [facility] RAD FELL AND NOW NE CK PAIN [id number] 11/09/2015 10:39:00 016 12:33:00 DIS Emergency IVY HARDY APRN [facility] ER VOMITING BLOOD/STOMACH PAIN [id number] 10/22/2015 08:49:00 016 12:30:00 DIS Emergency AROLDO MERCADO MD [facility] ER UPPER ABD PAIN [id number] 08/26/2015 11:42:00 016 16:28:00 DIS Emergency MARTIN ACUNA [facility] ER ABDOMINAL PAIN [id number] 08/25/2015 21:39:00 00:23:00 DIS Emergency GOLD HOWARD MD [facility] ER UPPER ABD PAIN [id number] 08/16/2015 10:01:00 09:10:00 DIS Inpatient RINKU MANDEL DO [facility] 4TH UPPER GI BLEED [id number] 08/15/2015 21:53:00 016 22:09:00 DIS Emergency GOYO PARK DO [facility] ER THROWING UP BLOOD [id number] 05/05/2015 09:13:00 10:05:00 DIS Emergency DAGOBERTO WOMACK DO a [facility] ER BACK PAIN [id number] 04/26/2015 09:09:00 11:38:00 DIS Emergency AROLDO MERCADO MD [facility] ER FALL/BACK PAIN [id number] 03/03/2015 08:59:00 23:59:59 CLS Outpatient RINKU MANDEL DO [facility] LAB NODULE IN LIVER , CIRRHOSIS [id number] 02/12/2015 08:43:00 23:59:59 CLS Outpatient RINKU MANDEL DO [facility] RAD ABNORMAL CT [id number] 02/05/2015 09:48:00 23:59:59 CLS Outpatient RINKU MANDEL DO [facility] RAD ABNORMAL CT [id number] 01/25/2015 09:29:00 015 12:45:00 DIS Emergency GOLD HOWARD MD [facility] ER ABD PAIN [id number] 01/19/2015 09:13:00 015 12:31:00 DIS Emergency IVY HARDY APRN [facility] ER FEVER/ABD PAIN [id number] 12/21/2014 08:00:00 015 23:59:59 CLS Preadmit PENELOPE COLLAZO [facility] CARD COPD,HTN,PALPI TATIONS [id number] 09/21/2014 08:01:00 015 00:01:00 DIS Outpatient GONZALO COLLAZO [facility] CARD COPD,HTN,PA LPITATIONS [id number] 12/02/2014 09:35:00 015 23:59:59 CLS Outpatient RINKU MANDEL DO [facility] RAD LEFT HIP PAIN-G ETTING WORSE [id number] 10/16/2014 08:30:00 015 09:25:00 DIS Emergency AROLDO MERCADO MD [facility] ER FALL LEFT SHOUL ABIOLA PAIN [id number] 07/14/2014 10:01:00 015 23:59:59 CLS Outpatient MAYCOL GUERRA MD [facility] PREOP POSTERIOR LAMINECTOMY S YNDROME; SEE NOTES [id number] 06/08/2014 07:30:00 015 23:59:59 CLS Preadmit MAYCOL GUERRA MD [facility] SURG POSTERIOR LAMINECTOMY S YNDROME; SEE NOTES [id number] 05/20/2014 09:02:00 015 23:59:59 CLS Outpatient MAYCOL GUERRA MD [facility] PREOP POSTERIOR LAMINECTOMY S YNDROME; SEE NOTES [id number] 12/29/2013 08:06:00 014 23:59:59 CLS Outpatient CARLOS HUNT MD [facility] RAD STENOSIS [id number] 08/12/2013 07:15:00 08:53:00 DIS Emergency GOLD HOWARD MD [facility] ER FALL RIGHT KNEE PAIN/RIGHT HAND LAC [id number] 03/10/2013 09:14:00 10:40:00 DIS Emergency GOLD HOWARD MD [facility] ER BACK PAIN [id number] 03/03/2013 07:33:00 23:59:59 CLS Outpatient LORENZO CHAVEZ MD [facility] RAD CP,HTN,SOB [id number] 02/12/2013 08:53:00 23:59:59 CLS Outpatient LORENZO CHAVEZ MD [facility] CARD CP,HTN,SOB [id number] 12/23/2014 08:51:00 Document Registration [id number] 09/18/2014 14:54:00 Document Registration [id number] 09/18/2014 14:54:00 Document Registration [id number] 09/18/2014 14:54:00 Document Registration [id number] 09/18/2014 14:54:00 Document Registration [id number] 09/18/2014 14:54:00 Document Registration [id number] 03/23/2014 15:52:00 Document Registration [id number] 03/23/2014 15:51:00 Document Registration [id number] 08/07/2012 17:50:00 Document Registration [id number] 11/14/2010 10:39:00 Document Registration [id number] 11/01/2010 08:06:00 Document Registration [id number] 10/26/2010 08:37:00 Document Registration [id number] 08/10/2009 02:18:00 Document Registration [id number] 07/19/2018 09:40:00 07/19/2018 23:59: 00 DIS Outpatient JACOB BRIDGES [id number] 07/19/2018 09:27:00 07/19/2018 23:59: 00 JACOB Riley [id number] 12/04/2017 10:12:00 12/04/2017 23:59: 00 JACOB Riley [id number] 11/28/2017 08:33:00 11/28/2017 23:59: 00 JACOB Riley
[2019-10-26] MEDS ORDERED: FAMOTIDINE 20MG/2ML IV (PEPCID) IVP ONE (18:15)
[2019-10-26] MEDS ORDERED: PANTOPRAZOLE 40 MG (PROTONIX) VIAL IV ONE (18:15)
[2019-10-26] MEDS ORDERED: ONDANSETRON 4 MG/2 ML (SDV) Z0FRAN IVP ONE (18:15)
--- NOTE | 2019-10-26 18:20 | ED Abdominal Pain ---
General Chief Complaint: Abdominal/GI Problems Stated Complaint: ABD DISTENSION Nursing Triage Note: ARRIVED VIA EMS FROM HOME. VOMITING X2 DAYS. STARTED VOMITING BLOOD TODAY AND HAS FILLED X2 GREEN EMESIS BAGS. Sepsis Screen: No Definite Risk Source of Information: Patient, EMS, Old Records Exam Limitations: No Limitations History of Present Illness Date Seen by Provider: Oct 26, 2019 Time Seen by Provider: 18:08 Initial Comments This 54-year-old woman presents to the emergency room with complaints of abdominal distention, generalized pain, and vomiting for the past 2 days. Today she activated EMS. EMS reports 2 emesis bags full of bloody emesis. Blood pressure is stable but she is mildly tachycardic. Patient has a history of alcohol abuse, liver failure, and hepatitis C. She is alert and oriented at the time of arrival. EMS as administered no medications. Patient reports drinking "a few beers" today. She recently quit marijuana and citing concerns about leach virus. Patient has esophageal varices, gastritis, and hiatal hernia doc umented from EGD in 2016. Allergies and Home Medications Allergies Coded Allergies: codeine (Verified Allergy, Unknown, 10/07/16) fentanyl (Verified Adverse Reaction, Unknown, PATIENT REQUEST NOT TO HAVE IT , 05/15/18) Home Medications Albuterol Sulfate 18 Gm Hfa.aer.ad, 2 PUFF IH Q4H PRN for SHORTNESS OF BREATH, (Reported) Alprazolam 0.5 Mg Tablet, 0.5 MG PO HS PRN for ANXIETY, (Reported) Amlodipine Besylate 10 Mg Tablet, 10 MG PO DAILY, (Reported) Fluticasone/Salmeterol 1 Each Blst.w.dev, 1 PUFF INH BID, (Reported) Furosemide 20 Mg Tablet, 20 MG PO DAILY, (Reported) Gabapentin 300 Mg Capsule, 600 MG PO HS, (Reported) TAKES 2 (300MG) CAPSULES Levothyroxine Sodium 25 Mcg Tablet, 25 MCG PO DAILY, (Reported) Meloxicam 15 Mg Tablet, 15 MG PO DAILY, (Reported) Ondansetron 4 Mg Tab.rapdis, 4 MG PO Q6H PRN for NAUSEA/VOMITING-1ST LINE, (Reported) Ondansetron 4 Mg Tab.rapdis, 4 MG PO Q6H PRN for NAUSEA/VOMITING Prescribed by: PJ TREJO on 08/20/19 1134 Pantoprazole Sodium 40 Mg Tablet.dr, 40 MG PO DAILY, (Reported) Pantoprazole Sodium 40 Mg Tablet.dr, 40 MG PO BID Prescribed by: MARTIN HOLLINGSWORTH on 03/27/17 1238 Tramadol HCl 50 Mg Tablet, 50 MG PO BID PRN for PAIN-MILD, (Reported) Patient Home Medication List Home Medication List Reviewed: Yes Review of Systems Review of Systems Constitutional: no symptoms reported EENTM: No Symptoms Reported Respiratory: No Symptoms Reported Cardiovascular: See HPI Gastrointestinal: See HPI Genitourinary: No Symptoms Reported Musculoskeletal: no symptoms reported Skin: no symptoms reported Psychiatric/Neurological: No Symptoms Reported Endocrine: No Symptoms Reported Hematologic/Lymphatic: No Symptoms Reported Past Kzpmuji-Tlwagm-Pfhfkz Hx Past Med/Social Hx: Reviewed Nursing Past Med/Soc Hx Patient Social History Alcohol Use: Occasionally Uses Alcohol Beverage of Choice: Beer Recreational Drug Use: Yes (HX OF POT BUT QUIT BECAUSE OF COVID) Drug of Choice: MARIJUANA Smoking Status: Current Everyday Smoker Type Used: Cigarettes 2nd Hand Smoke Exposure: Yes Recent Foreign Travel: No Contact w/Someone Who Travel: No Recent Infectious Disease Expo: No Recent Hopitalizations: No Immunizations Up To Date Tetanus Booster (TDap): More than 5yrs PED Vaccines UTD: No Date of Pneumonia Vaccine: Jul 22, 2008 Date of Influenza Vaccine: Jan 16, 2019 Seasonal Allergies Seasonal Allergies: Yes Past Medical History Surgeries: Yes (back) Abdominal, Adenoidectomy, Orthopedic, Tonsillectomy Respiratory: Yes Asthma, COPD Currently Using CPAP: No Currently Using BIPAP: No Cardiac: Yes Heart Murmur, Hypertension Neurological: Yes : No 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 Disorders: Yes 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 Disorders: 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 Sexually Transmitted Disease: No HIV/AIDS: No Genitourinary: No Kidney Stones Gastrointestinal: Yes (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; ALCOHOLIC GASTRITIS) Gastroesophageal Reflux, Liver Disease/Jaundice, Gastrointestinal Bleed, Esophageal Varices, Hepatitis, Cirrhosis Musculoskeletal: Yes Arthritis, Fibromyalgia, Chronic Back Pain Endocrine: No HEENT: No Cancer: No Psychosocial: Yes ADD/ADHD, Anxiety Integumentary: No Blood Disorders: No Adverse Reaction/Blood Tranf: No Family Medical History Alcoholism G8 SISTER Cardiovascular disease 19 FATHER Colon cancer G8 BROTHER Diabetes mellitus G8 BROTHER Drug abuse G8 SISTER FH: cancer 19 MOTHER (BRAIN) G8 BROTHER Glaucoma 19 FATHER Hypertension 19 FATHER Myocardial infarction 19 FATHER Psychosocial problem 19 FATHER G8 BROTHER G8 SISTER No Family History of: AIDS Abdominal aortic aneurysm Alzheimer's disease Arthritis Asthma Completed stroke Parkinson's disease Respiratory disorder Seizure disorder Severe allergy Thyroid disease No Pertinent Family Hx Physical Exam Vital Signs Vital Signs - First Documented 10/26/19 18:08 Temp 37.1 Pulse 97 Resp 16 B/P (MAP) 113/76 (88) Pulse Ox 92 O2 Delivery Room Air Capillary Refill : Less Than 3 Seconds Height/Weight/BMI Height: 5'4.00" Weight: 127lbs. 4.0oz. 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 machine feeder II-XII nml as tested, no motor/sensory deficits, alert, normal mood/affect, oriented x 3 Skin: normal color, warm/dry, other (spider telangiectasias) Progress/Results/Core Measures Results/Orders Lab Results Laboratory Tests Test 10/26/19 18:09 Range/Units White Blood Count 7.5 4.3-11.0 10^3/uL Red Blood Count 3.37 L 4.35-5.85 10^6/uL Hemoglobin 10.3 L 11.5-16.0 G/DL Hematocrit 31 L 35-52 % Mean Corpuscular Volume 92 80-99 FL Mean Corpuscular Hemoglobin 31 25-34 PG Mean Corpuscular Hemoglobin Concent 33 32-36 G/DL Red Cell Distribution Width 17.9 H 10.0-14.5 % Platelet Count 141 130-400 10^3/uL Mean Platelet Volume 10.7 H 7.4-10.4 FL Neutrophils (%) (Auto) 53 42-75 % Lymphocytes (%) (Auto) 29 12-44 % Monocytes (%) (Auto) 15 H 0-12 % Eosinophils (%) (Auto) 2 0-10 % Basophils (%) (Auto) 1 0-10 % Neutrophils # (Auto) 4.0 1.8-7.8 X 10^3 Lymphocytes # (Auto) 2.2 1.0-4.0 X 10^3 Monocytes # (Auto) 1.1 H 0.0-1.0 X 10^3 Eosinophils # (Auto) 0.1 0.0-0.3 10^3/uL Basophils # (Auto) 0.1 0.0-0.1 10^3/uL Prothrombin Time 18.1 H 12.2-14.7 SEC INR Comment 1.5 H 0.8-1.4 Sodium Level 130 L 135-145 MMOL/L Potassium Level 3.1 L 3.6-5.0 MMOL/L Chloride Level 96 L 98-107 MMOL/L Carbon Dioxide Level 20 L 21-32 MMOL/L Anion Gap 14 5-14 MMOL/L Blood Urea Nitrogen 5 L 7-18 MG/DL Creatinine 0.54 L 0.60-1.30 MG/DL Estimat Glomerular Filtration Rate > 60 BUN/Creatinine Ratio 9 Glucose Level 106 H 70-105 MG/DL Calcium Level 7.6 L 8.5-10.1 MG/DL Corrected Calcium 8.8 8.5-10.1 MG/DL Total Bilirubin 1.7 H 0.1-1.0 MG/DL Aspartate Amino Transf (AST/SGOT) 76 H 5-34 U/L Alanine Aminotransferase (ALT/SGPT) 23 0-55 U/L Alkaline Phosphatase 78 40-136 U/L Total Protein 7.1 6.4-8.2 GM/DL Albumin 2.5 L 3.2-4.5 GM/DL Lipase 18 8-78 U/L Serum Alcohol 40 H <10 MG/DL My Orders Orders - GOLD HOWARD MD Alcohol (10/26/19 18:12) Cbc With Automated Diff (10/26/19 18:12) Comprehensive Metabolic Panel (10/26/19 18:12) Drug Screen Stat (Urine) (10/26/19 18:12) Protime With Inr (10/26/19 18:12) Ua Culture If Indicated (10/26/19 18:12) Ondansetron Injection (Zofran Injectio (10/26/19 18:15) Pantoprazole Injection (Protonix Injecti (10/26/19 18:15) Famotidine Injection (Pepcid Injection) (10/26/19 18:15) Red Cells Leukocytes Reduced (10/26/19 18:14) Type And Screen (10/26/19 18:14) Morphine Injection (Morphine Injection (10/26/19 18:24) Ct Abdomen/Pelvis W (10/26/19 18:53) Iohexol Injection (Omnipaque 350 Mg/Ml 1 (10/26/19 19:15) Received Contrast (Hold Metformin- Contr (10/26/19 19:15) Sodium Chloride Flush (Catheter Flush Sy (10/26/19 19:15) Ns (Ivpb) (Sodium Chloride 0.9% Ivpb Bag (10/26/19 19:15) Morphine Injection (Morphine Injection (10/26/19 19:20) Potassium Cl 10meq/50ml Ivpb (Kcl 10 Meq (10/26/19 20:00) Lipase (10/26/19 20:05) Octreotide Injection (Sandostatin Inje (10/26/19 21:30) Ns (Ivpb) (Sodium C... W/Octreotide Inj (10/26/19 21:30) Morphine Injection (Morphine Injection (10/26/19 22:23) Diphenhydramine Injection (Benadryl Inje (10/26/19 22:30) Morphine Injection (Morphine Injection (10/26/19 22:22) Diphenhydramine Injection (Benadryl Inje (10/26/19 22:23) Ondansetron Injection (Zofran Injectio (10/26/19 22:44) Medications Given in ED Current Medications Medications Dose Ordered Sig/Pino Route Start Time Stop Time Status Last Admin Dose Admin Diphenhydramine HCl 50 mg STK-MED ONCE .ROUTE 10/26/19 22:23 10/26/19 22:25 DC 10/26/19 22:49 50 MG Famotidine 20 mg ONCE ONCE IVP 10/26/19 18:15 10/26/19 18:16 DC 10/26/19 18:18 20 MG Iohexol 100 ml ONCE ONCE IV 10/26/19 19:15 10/26/19 19:16 DC 10/26/19 19:41 80 ML Morphine Sulfate 10 mg STK-MED ONCE .ROUTE 10/26/19 22:22 10/26/19 22:24 DC 10/26/19 22:48 10 MG Octreotide Acetate 50 mcg/ Sodium Chloride 51 ml @ 204 mls/hr ONCE ONCE IV 10/26/19 21:30 10/26/19 21:44 DC 10/26/19 21:40 204 MLS/HR Ondansetron HCl 4 mg STK-MED ONCE .ROUTE 10/26/19 22:44 10/26/19 22:47 DC 10/26/19 22:49 4 MG Ondansetron HCl 8 mg ONCE ONCE IVP 10/26/19 18:15 10/26/19 18:16 DC 10/26/19 18:20 8 MG Pantoprazole 80 mg ONCE ONCE IV 10/26/19 18:15 10/26/19 18:16 DC 10/26/19 18:21 80 MG Potassium Chloride 50 ml @ 50 mls/hr ONCE ONCE IV 10/26/19 20:00 10/26/19 21:00 DC 10/26/19 20:14 50 MLS/HR Sodium Chloride 10 ml NEEDED PRN IV 10/26/19 19:15 10/26/19 22:52 DC 10/26/19 19:41 10 ML Sodium Chloride 100 ml ONCE ONCE IV 10/26/19 19:15 10/26/19 19:16 DC 10/26/19 19:41 80 ML Vital Signs/I&O 10/26/19 10/26/19 18:08 22:00 Temp 37.1 Pulse 97 80 Resp 16 18 B/P (MAP) 113/76 (88) 108/57 Pulse Ox 92 95 O2 Delivery Room Air Room Air Blood Pressure Mean: 88 Progress Progress Note #1: Time: 18:20 Progress Note Patient was seen and examined upon arrival. She is receiving Protonix 80 mg of Pepcid 20 mg along with Zofran 8 mg. She received approximately 250 mL of IVF by EMS. We will refrain from administering more volume as long as she is hemodynamically stable. Vital signs are within normal limits at this time. 2 units of blood are being crossmatched and held. Progress Note #2: Time: 20:07 Progress Note Vital signs are table at this time. Last blood pressure was 100/55. Heart rate was 90. CT is pending. Patient has not required transfusion. She received morphine 4 mg 2 to control her pain. She reports her pain is focused in the left upper quadrant. Lipase is pending. Progress Note #3: Time: 21:10 Progress Note Case was discussed with Dr. Vaughn, surgeon presentation team member. We do not have any providers at this facility drainage esophageal varices or the complications of esophageal bleeding from varices. He recommended transferring to a tertiary care facility with recycling attendant. Sharita is on admission diversion. Dr. Cuello at [place] accepts transfer. He requested we start octreotide. CT scan was reviewed. There was some thickening around the gallbladder which is likely related to ascites. Patient does not have leukocytosis or fever to correlate with an acute cholecystitis in her pain is more on the left side. We will start octreotide as requested. Potassium is being replaced by IV route with 10 mEq. The remaining amount of her 1 L normal saline was running at 500 mL per hour. Progress Note #4: Time: 22:24 Progress Note EMS is here to transfer patient. She is still stable. She is requesting more pain medication. A final dose of morphine is being ordered along with Benadryl 12.5 mg as she is complaining of itching related to the morphine. Progress Note #5: Progress Note Zofran 4 mg was given just prior to departure. Diagnostic Imaging Diagonstic Imaging: CT Plain Films/CT/US/NM/MRI: abdomen, pelvis Comments CT abdomen and pelvis viewed by me and report reviewed. See report below: NAME: AMANDA TILLMAN [facility] REC#: [id number] PT STATUS: REG ER : 1965 PHYSICIAN: GOLD HOWARD MD ADMIT DATE: 10/26/19/ER Draft Date of Exam:10/26/19 CT ABDOMEN/PELVIS W PROCEDURE: CT abdomen and pelvis with contrast. TECHNIQUE: Multiple contiguous axial images were obtained through the abdomen and pelvis after administration of intravenous contrast. Auto Exposure Controls were utilized during the CT exam to meet ALARA standards for radiation dose reduction. INDICATION: Vomiting, hematemesis. COMPARISON: 09/20/2017. FINDINGS: The visualized lung bases are clear. Tiny hiatal hernia. Esophageal varices are identified, appearing more prominent than the prior exam. Nodular contour of the liver is identified with severe heterogeneity throughout the liver. The liver appears predominantly diffusely hypodense with heterogeneous irregular isodensities noted throughout the liver. The main portal vein is patent. The spleen is not enlarged. The adrenal glands are unremarkable. The pancreas is unremarkable. The bilateral kidneys and ureters are unremarkable. Advanced vascular calcifications within the abdominal aorta and its branch vessels without aneurysmal dilatation of the abdominal aorta. Fluid is identified about the gallbladder minimal layering sludge and/or stones suggested within the gallbladder. The appendix is nondilated. The urinary bladder is unremarkable. The uterus and adnexal structures are unremarkable. No bowel obstruction or pneumatosis. Recanalization the umbilical vein. Moderate amount of free fluid throughout the abdomen and pelvis. No free air. No significant adenopathy. Scattered osseous degenerative changes without acute osseous abnormality. IMPRESSION: 1. Geographic fatty infiltration is identified in underlying cirrhotic liver. This is associated with moderate amount of ascites, increasing paraesophageal varices and recanalization of the umbilical vein. 2. Pericholecystic fluid with minimal sludge and/or stones within the gallbladder. This is favored to simply relate to underlying hepatic dysfunction and edema. However, acute cholecystitis cannot be excluded. Recommend correlation with laboratory values. If there remains clinical concern for acute cholecystitis, right upper quadrant ultrasound versus nuclear medicine hepatobiliary imaging scan would be recommended. 3. Small hiatal hernia. 4. Additional findings as above. Dictated on workstation # [id number] Dict: 10/26/191954 Trans: 10/26/192007 [id number] Interpreted by: MAYRA FERRARA MD Departure Impression Primary Impression: Upper GI bleed Additional Impressions: Liver failure Qualified Codes: K72.10 - Chronic hepatic failure without coma Esophageal varices Qualified Codes: I85.01 - Esophageal varices with bleeding Hypokalemia Disposition: 02 XFER SHT-TRM HOSP Condition: Stable Transfer Transfer Reason: Exceeds level of care Time Spoke to Accepting Phy: 21:10 Transfer Progress Notes [place] [facility] [facility] Transfer Time: 22:30 [facility]: EMS Departure-Patient Inst. Referrals: RINKU MANDEL DO (PCP/Family) Primary Care Physician Copy Copies To 1: RINKU MANDEL DO Copies To 2: CORETTA MCCRAY JOSHUA T MD Oct 26, 2019 18:20
[2019-10-26 18:22] LABS: BASOPHILS # (AUTO) 0.1 10^3/uL (0.0-0.1); BASOPHILS % (AUTO) 1 % (0-10); EOSINOPHILS # (AUTO) 0.1 10^3/uL (0.0-0.3); EOSINOPHILS % (AUTO) 2 % (0-10); HEMATOCRIT 31 % (35-52); HEMOGLOBIN 10.3 G/DL (11.5-16.0); LYMPHOCYTES # (AUTO) 2.2 X 10^3 (1.0-4.0); LYMPHOCYTES % (AUTO) 29 % (12-44); MEAN CORPUSCULAR HEMOGLOBIN 31 PG (25-34); MEAN CORPUSCULAR HGB CONC 33 G/DL (32-36); MEAN CORPUSCULAR VOLUME 92 FL (80-99); MEAN PLATELET VOLUME 10.7 FL (7.4-10.4); MONOCYTES # (AUTO) 1.1 X 10^3 (0.0-1.0); MONOCYTES % (AUTO) 15 % (0-12); NEUTROPHILS % (AUTO) 53 % (42-75); PLATELET COUNT 141 10^3/uL (130-400); RED CELL DISTRIBUTION WIDTH 17.9 % (10.0-14.5); WHITE BLOOD COUNT 7.5 10^3/uL (4.3-11.0)
[2019-10-26] MEDS ORDERED: morphine INJ 10 MG/ML 1ML (SYR OR VIAL) IVP STA ×3 (18:24→22:23)
--- NOTE | 2019-10-26 18:24 | NUR ---
PT REQUEST PAIN MEDS. DR HOWARD NOTIFIED.
[2019-10-26 18:30] LABS: INR 1.5 (0.8-1.4); PROTHROMBIN TIME PATIENT 18.1 SEC (12.2-14.7)
[2019-10-26 18:40] LABS: ALANINE AMINOTRANSFERASE 23 U/L (0-55); ALBUMIN 2.5 GM/DL (3.2-4.5); ALKALINE PHOSPHATASE 78 U/L (40-136); BILIRUBIN,TOTAL 1.7 MG/DL (0.1-1.0); BUN/CREATININE RATIO 9; CALCIUM 7.6 MG/DL (8.5-10.1); CARBON DIOXIDE 20 MMOL/L (21-32); CHLORIDE 96 MMOL/L (98-107); CREATININE SERUM 0.54 MG/DL (0.60-1.30); GFR ESTIMATED > 60; GLUCOSE 106 MG/DL (70-105); POTASSIUM 3.1 MMOL/L (3.6-5.0); SODIUM 130 MMOL/L (135-145); TOTAL PROTEIN 7.1 GM/DL (6.4-8.2)
--- NOTE | 2019-10-26 18:46 | NUR ---
WARM BLANKET GIVEN PER REQUEST.
[2019-10-26] MEDS ORDERED: IOHEXOL 350 MG/ML 100 ML (OMNIPAQUE 350) VIAL IV ONE (19:15)
[2019-10-26] MEDS ORDERED: NS 100 ML (IVPB) BAG IV ONE (19:15)
[2019-10-26] MEDS ORDERED: CATHETER FLUSH 10 ML SYR IV PRN (19:15)
[2019-10-26] MEDS ORDERED: HOLD METFORMIN - RECEIVED CONTRAST 20 ML VIAL IV SCH (19:15)
[2019-10-26] MEDS ORDERED: POTASSIUM CL 10MEQ/50ML IVPB 50 ML IV ONE (20:00)
--- NOTE | 2019-10-26 20:10 | Diagnostic Imaging Report ---
PROCEDURE: CT abdomen and pelvis with contrast. TECHNIQUE: Multiple contiguous axial images were obtained through the abdomen and pelvis after administration of intravenous contrast. Auto Exposure Controls were utilized during the CT exam to meet ALARA standards for radiation dose reduction. INDICATION: Vomiting, hematemesis. COMPARISON: 09/20/2017. FINDINGS: The visualized lung bases are clear. Tiny hiatal hernia. Esophageal varices are identified, appearing more prominent than the prior exam. Nodular contour of the liver is identified with severe heterogeneity throughout the liver. The liver appears predominantly diffusely hypodense with heterogeneous irregular isodensities noted throughout the liver. The main portal vein is patent. The spleen is not enlarged. The adrenal glands are unremarkable. The pancreas is unremarkable. The bilateral kidneys and ureters are unremarkable. Advanced vascular calcifications within the abdominal aorta and its branch vessels without aneurysmal dilatation of the abdominal aorta. Fluid is identified about the gallbladder minimal layering sludge and/or stones suggested within the gallbladder. The appendix is nondilated. The urinary bladder is unremarkable. The uterus and adnexal structures are unremarkable. No bowel obstruction or pneumatosis. Recanalization the umbilical vein. Moderate amount of free fluid throughout the abdomen and pelvis. No free air. No significant adenopathy. Scattered osseous degenerative changes without acute osseous abnormality. IMPRESSION: 1. Geographic fatty infiltration is identified in underlying cirrhotic liver. This is associated with moderate amount of ascites, increasing paraesophageal varices and recanalization of the umbilical vein. 2. Pericholecystic fluid with minimal sludge and/or stones within the gallbladder. This is favored to simply relate to underlying hepatic dysfunction and edema. However, acute cholecystitis cannot be excluded. Recommend correlation with laboratory values. If there remains clinical concern for acute cholecystitis, right upper quadrant ultrasound versus nuclear medicine hepatobiliary imaging scan would be recommended. 3. Small hiatal hernia. 4. Additional findings as above. Dictated by: Dictated on workstation # [id number]
[2019-10-26] MEDS ORDERED: OCTREOTIDE INJECTION 50 MCG in NS (IVPB) 50 ML IV ONE (21:30)
[2019-10-26] MEDS ORDERED: OCTREOTIDE INJECTION 500 MCG in NS (IVPB) 99 ML IV SCH (21:30)
[2019-10-26 22:00] VITALS: BP 108/57
[2019-10-26] MEDS ORDERED: morphine INJ 10 MG/ML 1ML (SYR OR VIAL) ONE (22:22)
[2019-10-26] MEDS ORDERED: diphenhydrAMINE 50 MG/ML INJ (BENADRYL) ONE (22:23)
[2019-10-26] MEDS ORDERED: diphenhydrAMINE 50 MG/ML INJ (BENADRYL) IVP ONE (22:30)
[2019-10-26] MEDS ORDERED: ONDANSETRON 4 MG/2 ML (SDV) Z0FRAN ONE (22:44)
== END 2019-10-26 22:52 | disposition short-term general hospital (02) ==
LOC: EDUNIT# 18:07 → ER 18:08
DX: I85.01 Esophageal varices with bleeding (principal); K72.10 Chronic hepatic failure without coma; J44.9 Chronic obstructive pulmonary disease, unspecified; R01.1 Cardiac murmur, unspecified; I10 Essential (primary) hypertension; B19.20 Unspecified viral hepatitis C without hepatic coma; Z91.19 Patient's noncompliance with other medical treatment and regimen; M19.90 Unspecified osteoarthritis, unspecified site; M79.10 Myalgia, unspecified site; M54.9 Dorsalgia, unspecified; F90.9 Attention-deficit hyperactivity disorder, unspecified type; F41.9 Anxiety disorder, unspecified; K21.9 Gastro-esophageal reflux disease without esophagitis; F17.210 Nicotine dependence, cigarettes, uncomplicated; Z79.899 Other long term (current) drug therapy; Z88.5 Allergy status to narcotic agent
CPT/HCPCS: 74177; 80053; 83690; 85025; 85610; 86850; 86900; 86901; 86920; 99285; G0480; 36415; 80320

== ENCOUNTER 2019-11-08 14:22 | Inpatient (IN) | payer MEDICARE, MEDICAID ==
[~2019-11-08] VITALS: Ht 165 cm; Wt 57.0 kg
[2019-11-08] MEDS ORDERED: morphine INJ 10 MG/ML 1ML (SYR OR VIAL) IVP STA (14:44)
[2019-11-08] MEDS ORDERED: ONDANSETRON 4 MG/2 ML (SDV) Z0FRAN IVP ONE (14:45)
--- NOTE | 2019-11-08 14:49 | ED Back Pain ---
General Chief Complaint: Back Problems Stated Complaint: BACK PAIN / SOA Source of Information: Patient Exam Limitations: No Limitations History of Present Illness Date Seen by Provider: Nov 08, 2019 Time Seen by Provider: 14:31 Initial Comments Patient presents ER by private conveyance from home with chief complaint of pain in her back thoracic area just medial to the right scapula. Does not radiate. She's having nausea without fever but she's had chills. She does not have a thermometer. She is not having a cough or shortness of air she hurts when she takes deep inspiration or when she touches the spot. She's had single before says this pain. She tried her tramadol without benefit. She feels spasms from time to time and her back. She denies any abdominal surgeries but just recently in the last couple weeks she had to go have esophageal varices banded. She has a history of hepatitis as well as chronic history of alcohol abuse. She has a history of COPD but denies a history of heart disease. Patient states she's stop drinking about 5-6 months ago. She is following with a gastric neurologists and Esthela attempting to get medical treatment for her hepatitis C. She says her last alcohol use was about 6 months ago. Echocardi[address] Dejesus shows EF of 60%. Allergies and Home Medications Allergies Coded Allergies: codeine (Verified Allergy, Unknown, 10/07/16) fentanyl (Verified Adverse Reaction, Unknown, PATIENT REQUEST NOT TO HAVE IT , 05/15/18) Home Medications Albuterol Sulfate 18 Gm Hfa.aer.ad, 2 PUFF IH Q4H PRN for SHORTNESS OF BREATH, (Reported) Alprazolam 0.5 Mg Tablet, 0.5 MG PO HS PRN for ANXIETY, (Reported) Amlodipine Besylate 10 Mg Tablet, 10 MG PO DAILY, (Reported) Fluticasone/Salmeterol 1 Each Blst.w.dev, 1 PUFF INH BID, (Reported) Furosemide 20 Mg Tablet, 20 MG PO DAILY, (Reported) Gabapentin 300 Mg Capsule, 600 MG PO HS, (Reported) TAKES 2 (300MG) CAPSULES Levothyroxine Sodium 25 Mcg Tablet, 25 MCG PO DAILY, (Reported) Meloxicam 15 Mg Tablet, 15 MG PO DAILY, (Reported) Ondansetron 4 Mg Tab.rapdis, 4 MG PO Q6H PRN for NAUSEA/VOMITING-1ST LINE, (Reported) Ondansetron 4 Mg Tab.rapdis, 4 MG PO Q6H PRN for NAUSEA/VOMITING Prescribed by: PJ TREJO on 08/20/19 1134 Pantoprazole Sodium 40 Mg Tablet.dr, 40 MG PO DAILY, (Reported) Pantoprazole Sodium 40 Mg Tablet.dr, 40 MG PO BID Prescribed by: MARTIN HOLLINGSWORTH on 03/27/17 1238 Tramadol HCl 50 Mg Tablet, 50 MG PO BID PRN for PAIN-MILD, (Reported) Patient Home Medication List Home Medication List Reviewed: Yes Review of Systems Constitutional: No chills, No diaphoresis EENTM: No ear discharge, No ear pain Respiratory: see HPI; No cough, No short of breath Cardiovascular: see HPI, chest pain (right posterior thoracic cavity); No edema, No Hx of Intervention, No palpitations Gastrointestinal: No abdominal pain, No constipation, No diarrhea; nausea; No vomiting Genitourinary: No discharge, No dysuria Musculoskeletal: No see HPI; back pain; No joint pain All Other Systems Reviewed Negative Unless Noted: Yes Past Lpotoeu-Khyqxo-Btyxfb Hx Patient Social History Alcohol Use: Regular Use Alcohol Beverage of Choice: Beer Recreational Drug Use: Yes Drug of Choice: MARIJUANA Smoking Status: Current Everyday Smoker Type Used: Cigarettes 2nd Hand Smoke Exposure: Yes Recent Foreign Travel: No Contact w/Someone Who Travel: No Recent Hopitalizations: No Immunizations Up To Date Tetanus Booster (TDap): More than 5yrs PED Vaccines UTD: No Date of Pneumonia Vaccine: Jul 22, 2008 Date of Influenza Vaccine: Jan 16, 2019 Seasonal Allergies Seasonal Allergies: Yes Past Medical History Surgeries: Yes (back) Abdominal, Adenoidectomy, Orthopedic, Tonsillectomy Respiratory: Yes Asthma, COPD Currently Using CPAP: No Currently Using BIPAP: No Cardiac: Yes Heart Murmur, Hypertension Neurological: Yes 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 Disorders: Yes 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 Sexually Transmitted Disease: No HIV/AIDS: No Genitourinary: No Kidney Stones Gastrointestinal: Yes (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; ALCOHOLIC GASTRITIS) Gastroesophageal Reflux, Liver Disease/Jaundice, Gastrointestinal Bleed, Esophageal Varices, Hepatitis, Cirrhosis Musculoskeletal: Yes Arthritis, Fibromyalgia, Chronic Back Pain Endocrine: No HEENT: No Cancer: No Psychosocial: Yes ADD/ADHD, Anxiety Integumentary: No Blood Disorders: No Adverse Reaction/Blood Tranf: No Family Medical History Alcoholism G8 SISTER Cardiovascular disease 19 FATHER Colon cancer G8 BROTHER Diabetes mellitus G8 BROTHER Drug abuse G8 SISTER FH: cancer 19 MOTHER (BRAIN) G8 BROTHER Glaucoma 19 FATHER Hypertension 19 FATHER Myocardial infarction 19 FATHER Psychosocial problem 19 FATHER G8 BROTHER G8 SISTER No Family History of: AIDS Abdominal aortic aneurysm Alzheimer's disease Arthritis Asthma Completed stroke Parkinson's disease Respiratory disorder Seizure disorder Severe allergy Thyroid disease No Pertinent Family Hx Physical Exam Vital Signs Vital Signs - First Documented 11/08/19 14:25 Temp 36.0 Pulse 80 Resp 18 B/P (MAP) 118/57 (77) Pulse Ox 96 Capillary Refill : Height, Weight, BMI Height: 5'4.00" Weight: 127lbs. 4.0oz. 57.233305qi; 23.00 BMI Method:Stated General Appearance: Chronically ill, Moderate Distress HEENT: TMs Normal, Pharynx Normal, Moist Mucous Membranes Neck: Full Range of Motion, Normal Inspection Cardiovascular: Regular Rate, Rhythm, No Edema, Normal Peripheral Pulses Respiratory: No Chest Non Tender (medial to the right scapula and just lateralThe ribs are exquisitely tender to palpation.); Lungs Clear, Normal Breath Sounds, No Accessory Muscle Use, No Respiratory Distress Peripheral Pulses: 1+ Dorsalis Pedis (R), 1+ Left Dors-Pedis (L); 2+ Radial Pulses (R), 2+ Radial Pulses (L) Gastrointestinal: Normal Bowel Sounds, Non Tender, Soft Extremity: Normal Capillary Refill, Normal Inspection, No Pedal Edema Neurologic/Psychiatric: Alert, Oriented x3, Normal Mood/Affect Skin: Normal Color, Warm/Dry Progress/Results/Core Measures Results/Orders Lab Results Laboratory Tests Test 11/08/19 14:30 11/08/19 14:55 Range/Units White Blood Count 6.0 4.3-11.0 10^3/uL Red Blood Count 3.40 L 4.35-5.85 10^6/uL Hemoglobin 10.2 L 11.5-16.0 G/DL Hematocrit 31 L 35-52 % Mean Corpuscular Volume 91 80-99 FL Mean Corpuscular Hemoglobin 30 25-34 PG Mean Corpuscular Hemoglobin Concent 33 32-36 G/DL Red Cell Distribution Width 16.4 H 10.0-14.5 % Platelet Count 248 130-400 10^3/uL Mean Platelet Volume 11.4 H 7.4-10.4 FL Neutrophils (%) (Auto) 74 42-75 % Lymphocytes (%) (Auto) 17 12-44 % Monocytes (%) (Auto) 8 0-12 % Eosinophils (%) (Auto) 0 0-10 % Basophils (%) (Auto) 1 0-10 % Neutrophils # (Auto) 4.4 1.8-7.8 X 10^3 Lymphocytes # (Auto) 1.0 1.0-4.0 X 10^3 Monocytes # (Auto) 0.5 0.0-1.0 X 10^3 Eosinophils # (Auto) 0.0 0.0-0.3 10^3/uL Basophils # (Auto) 0.0 0.0-0.1 10^3/uL Sodium Level 128 L 135-145 MMOL/L Potassium Level 3.5 L 3.6-5.0 MMOL/L Chloride Level 95 L 98-107 MMOL/L Carbon Dioxide Level 19 L 21-32 MMOL/L Anion Gap 14 5-14 MMOL/L Blood Urea Nitrogen 5 L 7-18 MG/DL Creatinine 0.58 L 0.60-1.30 MG/DL Estimat Glomerular Filtration Rate > 60 BUN/Creatinine Ratio 9 Glucose Level 101 70-105 MG/DL Calcium Level 7.8 L 8.5-10.1 MG/DL Corrected Calcium 8.8 8.5-10.1 MG/DL Total Bilirubin 1.3 H 0.1-1.0 MG/DL Aspartate Amino Transf (AST/SGOT) 22 5-34 U/L Alanine Aminotransferase (ALT/SGPT) 7 0-55 U/L Alkaline Phosphatase 59 40-136 U/L Ammonia 41 H 11-32 UMOL/L Troponin I < 0.028 <0.028 NG/ML C-Reactive Protein High Sensitivity 1.95 H 0.00-0.50 MG/DL Total Protein 7.3 6.4-8.2 GM/DL Albumin 2.7 L 3.2-4.5 GM/DL Lipase 9 8-78 U/L Serum Alcohol < 10 <10 MG/DL My Orders Orders - CHEPE GILES Ondansetron Injection (Zofran Injectio (11/08/19 14:45) Morphine Injection (Morphine Injection (11/08/19 14:44) Cbc With Automated Diff (11/08/19 14:44) Comprehensive Metabolic Panel (11/08/19 14:44) Hs C Reactive Protein (11/08/19 14:44) Ammonia (11/08/19 14:44) Alcohol (11/08/19 14:44) Continuous Ekg Monitoring (11/08/19 14:44) Ekg Tracing (11/08/19 14:44) Chest Pa/Lat (2 View) (11/08/19 14:44) Lipase (11/08/19 14:44) Troponin I (11/08/19 14:44) Ed Iv/Invasive Line Start (11/08/19 16:02) Ns Iv 500 Ml (Sodium Chloride 0.9%) (11/08/19 16:02) Ct Chest/Abdomen/Pelvis W (11/08/19 16:02) Iohexol Injection (Omnipaque 350 Mg/Ml 1 (11/08/19 16:15) Received Contrast (Hold Metformin- Contr (11/08/19 16:15) Ns (Ivpb) (Sodium Chloride 0.9% Ivpb Bag (11/08/19 16:15) Sodium Chloride Flush (Catheter Flush Sy (11/08/19 16:15) Ketamine Syringe (Ed Only) (Ketamine Syr (11/08/19 16:15) Fentanyl Injection (Sublimaze Injection (11/08/19 16:15) Medications Given in ED Current Medications Medications Dose Ordered Sig/Pino Route Start Time Stop Time Status Last Admin Dose Admin Fentanyl Citrate 50 mcg ONCE ONCE IVP 11/08/19 16:15 11/08/19 16:16 DC 11/08/19 16:30 50 MCG Iohexol 100 ml ONCE ONCE IV 11/08/19 16:15 11/08/19 16:16 DC 11/08/19 16:23 78 ML Ketamine HCl 25 mg ONCE ONCE IV 11/08/19 16:15 11/08/19 16:16 DC 11/08/19 16:30 25 MG Ondansetron HCl 4 mg ONCE ONCE IVP 11/08/19 14:45 11/08/19 14:47 DC 11/08/19 14:55 4 MG Sodium Chloride 10 ml NEEDED PRN IV 11/08/19 16:15 11/08/19 16:24 10 ML Sodium Chloride 100 ml ONCE ONCE IV 11/08/19 16:15 11/08/19 16:16 DC 11/08/19 16:24 80 ML Vital Signs/I&O 11/08/19 14:25 Temp 36.0 Pulse 80 Resp 18 B/P (MAP) 118/57 (77) Pulse Ox 96 Progress Progress Note #1: Time: 15:17 Progress Note Posterior chest pain could be pleuritic or could be referred. Plan to get an EKG and chest x-ray. If her blood work is unremarkable when they had a CT of the abdomen pelvis to look at the gallbladder. Lipase ordered. Alcohol level. Morphine 6 mg for pain has given her modest relief and dipped her blood pressure down to 101/57. Progress Note #2: Time: 15:51 Progress Note She does have moderately elevated bilirubin of 1.3 however is been high in the past and this may be because of her cirrhotic liver but previous CT from 10 days ago demonstrated some sludge and/or stones within the gallbladder. Referred pain from cholecystitis possibility. She only got moderate relief from the morphine however her blood pressure took a DIP and only just came up to about 100 to 105 systolic after the dose of morphine. We could add a dose of ketamine. A CT of the chest abdomen and pelvis would help us look at the gallbladder as well as the pleura and lungs for occult pneumonia. Progress Note #3: Time: 17:11 Progress Note Patient experienced significant relief from the ketamine and fentanyl but is still in significant pain. Her stated allergy to fentanyl that it makes her angry. She is okay with our using it. Initial ECG Impression Date: Nov 08, 2019 Initial ECG Impression Time: 14:51 Initial ECG Rate: 77 Initial ECG Rhythm: Normal Sinus Initial ECG Intervals: Normal Initial ECG Impression: Normal, Nonspecific Changes Initial ECG Comparisson: Unchanged Comment Normal sinus rhythm without clinically relevant ST changes. Diagnostic Imaging Diagonstic Imaging: Xray Plain Films/CT/US/NM/MRI: chest (2v) Comments [facility]. [place], [place] NAME: AMANDA TILLMAN [facility] REC#: [id number] PT STATUS: REG ER : 1965 PHYSICIAN: CHEPE GILES MD ADMIT DATE: 11/08/19/ER Signed Date of Exam:11/08/19 CHEST PA/LAT (2 VIEW) CHEST PA/LAT (2 VIEW) Indication: Right-sided chest pain Comparison: 08/20/2019 Findings: No pulmonary mass or consolidation. No pleural effusion or pneumothorax. Normal heart size and mediastinal contours. Impression: No acute cardiopulmonary process. Dictated by: Dictated on workstation # [id number] Dict: 11/08/19 1531 Trans: 11/08/19 1532 [facility] [id number] Interpreted by: CHEVY COVARRUBIAS MD Electronically signed by: CHEVY COVARRUBIAS MD 11/08/19 153 Reviewed: Reviewed by Vt Diagonstic Imaging: CT Plain Films/CT/US/NM/MRI: chest, abdomen, pelvis Comments NAME: AMANDA TILLMAN [facility] REC#: [id number] PT STATUS: REG ER : 1965 PHYSICIAN: CHEPE GILES MD ADMIT DATE: 11/08/19/ER Draft Date of Exam:11/08/19 CT CHEST/ABDOMEN/PELVIS W PROCEDURE: CT chest, abdomen, and pelvis with contrast. TECHNIQUE: Multiple contiguous axial images were obtained through the chest, abdomen, and pelvis after the administration of intravenous contrast. Auto Exposure Controls were utilized during the CT exam to meet ALARA standards for radiation dose reduction. INDICATION: Sharp pains between the shoulder blades. Esophageal bands placed one week ago. COMPARISON: CT abdomen and pelvis with IV contrast 10/26/2019. FINDINGS: CT chest: The lungs are clear. No pleural effusion or pneumothorax. Normal heart size. No pericardial effusion. No mediastinal, hilar or axillary lymphadenopathy. Osseous structures are intact. CT abdomen/pelvis: Again seen is a cirrhotic morphology of the liver. Edematous appearance of the esophagus near the GE junction has progressed since the prior exam. Esophageal varices are again seen. Small amount of free fluid throughout the abdomen. Tiny cholelithiasis. Mild gallbladder wall thickening is likely due to the free fluid. The pancreas, spleen, adrenals, kidneys, ureters and bladder are negative. 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 structures are grossly unremarkable. The appendix is not identified and may be surgically absent. No suspicious inflammatory findings in the region of the cecum. No free intraperitoneal air. No evidence of bowel obstruction. Advanced degenerative endplate changes at L5-S1. No acute osseous finding. IMPRESSION: 1. Again seen is the cirrhotic morphology of the liver and small amount of free fluid throughout the abdomen. 2. Esophageal varices are again seen. There is an edematous appearance of the distal esophagus which is new since the prior exam. 3. There are a couple tiny gallstones. Mild gallbladder wall thickening is likely due to the ascites. 4. No acute CT findings in the chest. Dictated on workstation # [id number] Dict: 11/08/19 1639 Trans: 11/08/19 1652 [facility] [id number] Interpreted by: CHRISTIE MILES MD Electronically signed by: Reviewed: Reviewed by Me Departure Communication (Admissions) Time/Spoke to Admitting Phy: 17:00 Dr. Vaughn agrees to admit the patient with a medicine consult. He would plan to cover her with pain medicines and if she does well take her to surgery Sunday. Time/Spoke to Consulting Phy: 17:05 Dr. Elkins: Discussed the case and she agrees to get medical consultation on the c ase. Impression Primary Impression: Cholelithiasis and cholecystitis without obstruction Qualified Codes: K80.12 - Calculus of gallbladder with acute and chronic cholecystitis without obstruction Disposition: ADMITTED INPATIENT Condition: Stable Admissions Decision to Admit Reason: Admit from ER (General) Decision to Admit/Date: Nov 08, 2019 Time/Decision to Admit Time: 17:00 Departure-Patient Inst. Referrals: RINKU MANDEL DO (PCP/Family) Primary Care Physician CHEPE GLIES Nov 08, 2019 14:49
[2019-11-08 15:00] LABS: BASOPHILS % (AUTO) 1 % (0-10); EOSINOPHILS % (AUTO) 0 % (0-10); HEMATOCRIT 31 % (35-52); HEMOGLOBIN 10.2 G/DL (11.5-16.0); LYMPHOCYTES % (AUTO) 17 % (12-44); MEAN CORPUSCULAR HEMOGLOBIN 30 PG (25-34); MEAN CORPUSCULAR HGB CONC 33 G/DL (32-36); MEAN CORPUSCULAR VOLUME 91 FL (80-99); MEAN PLATELET VOLUME 11.4 FL (7.4-10.4); MONOCYTES # (AUTO) 0.5 X 10^3 (0.0-1.0); MONOCYTES % (AUTO) 8 % (0-12); NEUTROPHILS # (AUTO) 4.4 X 10^3 (1.8-7.8); NEUTROPHILS % (AUTO) 74 % (42-75); PLATELET COUNT 248 10^3/uL (130-400); RED CELL DISTRIBUTION WIDTH 16.4 % (10.0-14.5)
[2019-11-08 15:12] LABS: ALBUMIN 2.7 GM/DL (3.2-4.5); CHLORIDE 95 MMOL/L (98-107); POTASSIUM 3.5 MMOL/L (3.6-5.0); SODIUM 128 MMOL/L (135-145)
[2019-11-08 15:13] LABS: AMMONIA 41 UMOL/L (11-32); CALCIUM 7.8 MG/DL (8.5-10.1)
[2019-11-08 15:14] LABS: GLUCOSE 101 MG/DL (70-105); TOTAL PROTEIN 7.3 GM/DL (6.4-8.2)
[2019-11-08 15:15] LABS: CARBON DIOXIDE 19 MMOL/L (21-32)
[2019-11-08 15:16] LABS: BILIRUBIN,TOTAL 1.3 MG/DL (0.1-1.0)
[2019-11-08 15:18] LABS: ALKALINE PHOSPHATASE 59 U/L (40-136); CREATININE SERUM 0.58 MG/DL (0.60-1.30); GFR ESTIMATED > 60
[2019-11-08 15:19] LABS: BUN/CREATININE RATIO 9
[2019-11-08 15:21] LABS: ALANINE AMINOTRANSFERASE 7 U/L (0-55); LIPASE 9 U/L (8-78)
--- NOTE | 2019-11-08 15:33 | Diagnostic Imaging Report ---
CHEST PA/LAT (2 VIEW) Indication: Right-sided chest pain Comparison: 08/20/2019 Findings: No pulmonary mass or consolidation. No pleural effusion or pneumothorax. Normal heart size and mediastinal contours. Impression: No acute cardiopulmonary process. Dictated by: Dictated on workstation # [id number]
--- NOTE | 2019-11-08 15:43 | NUR ---
PT NOW REPORTED NUMBNESS TO BILAT HANDS SINCE ONSET OF UPPER BACK PAIN. STATES "I MEANT TO TELL LINDA BUT FORGOT."
[2019-11-08] MEDS ORDERED: NS IV 500 ML 500 ML IV ONE (16:02)
[2019-11-08] MEDS ORDERED: IOHEXOL 350 MG/ML 100 ML (OMNIPAQUE 350) VIAL IV ONE (16:15)
[2019-11-08] MEDS ORDERED: CATHETER FLUSH 10 ML SYR IV PRN ×2 (16:15→18:30)
[2019-11-08] MEDS ORDERED: NS 100 ML (IVPB) BAG IV ONE (16:15)
[2019-11-08] MEDS ORDERED: HOLD METFORMIN - RECEIVED CONTRAST 20 ML VIAL IV SCH (16:15)
[2019-11-08] MEDS ORDERED: fentaNYL INJECTION 100 MCG/2 ML AMP IVP ONE (16:15)
[2019-11-08] MEDS ORDERED: KETAMINE/NaCl 50 MG/5 ML SYRINGE (ED ONLY) IV ONE (16:15)
--- NOTE | 2019-11-08 16:53 | Diagnostic Imaging Report ---
PROCEDURE: CT chest, abdomen, and pelvis with contrast. TECHNIQUE: Multiple contiguous axial images were obtained through the chest, abdomen, and pelvis after the administration of intravenous contrast. Auto Exposure Controls were utilized during the CT exam to meet ALARA standards for radiation dose reduction. INDICATION: Sharp pains between the shoulder blades. Esophageal bands placed one week ago. COMPARISON: CT abdomen and pelvis with IV contrast 10/26/2019. FINDINGS: CT chest: The lungs are clear. No pleural effusion or pneumothorax. Normal heart size. No pericardial effusion. No mediastinal, hilar or axillary lymphadenopathy. Osseous structures are intact. CT abdomen/pelvis: Again seen is a cirrhotic morphology of the liver. Edematous appearance of the esophagus near the GE junction has progressed since the prior exam. Esophageal varices are again seen. Small amount of free fluid throughout the abdomen. Tiny cholelithiasis. Mild gallbladder wall thickening is likely due to the free fluid. The pancreas, spleen, adrenals, kidneys, ureters and bladder are negative. 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 structures are grossly unremarkable. The appendix is not identified and may be surgically absent. No suspicious inflammatory findings in the region of the cecum. No free intraperitoneal air. No evidence of bowel obstruction. Advanced degenerative endplate changes at L5-S1. No acute osseous finding. IMPRESSION: 1. Again seen is the cirrhotic morphology of the liver and small amount of free fluid throughout the abdomen. 2. Esophageal varices are again seen. There is an edematous appearance of the distal esophagus which is new since the prior exam. 3. There are a couple tiny gallstones. Mild gallbladder wall thickening is likely due to the ascites. 4. No acute CT findings in the chest. Dictated by: Dictated on workstation # [id number]
--- NOTE | 2019-11-08 17:55 | NUR ---
REC'D PER WC FROM ED. SEE ASSESSMENT. AMANDA TILLMAN admitted to room 417-1, with an admitting diagnosis of ABD PAIN, on 11/08/19 from ED via WC, accompanied by SELF AND STAFF. AMANDA TILLMAN introduced to surroundings, call light, bed controls, phone, TV, temperature control, lights, meal times, smoking policy, visitor policy, side rail policy, bathrooms and showers. Patient Rights given to patient in the handbook. AMANDA TILLMAN verbalizes understanding that [facility] is not responsible for the loss or damage to any personal effects or valuables that are kept in the patients posession during their hospitalization. The following Patient Care Plans were discussed with the PT: Discharge Planning, PAIN. AMANDA TILLMAN verbalizes understanding of Interdisciplinary Patient Education. Patient and/or family were informed about the Rapid Response Team and its purpose.
[2019-11-08 17:57] VITALS: BP 106/63
[2019-11-08] MEDS ORDERED: ONDANSETRON 4 MG/2 ML (SDV) Z0FRAN IVP PRN (18:30)
[2019-11-08] MEDS ORDERED: oxyCODONE/APAP 5/325MG (PERCOCET 5) TABLET PO PRN (18:30)
[2019-11-08] MEDS ORDERED: fentaNYL INJECTION 100 MCG/2 ML AMP IVP PRN (18:30)
[2019-11-08] MEDS ORDERED: PROMETHAZINE INJ 25 MG/ML (PHENERGAN) AMP IM PRN (18:30)
[2019-11-08 19:39] VITALS: BP 102/52
[2019-11-08] MEDS: HYDROmorphone 2 MG/ML VIAL (DILAUDID) IV PRN (20:14)
[2019-11-08] MEDS: ALPRAZolam 1 MG (XANAX) TAB PO PRN (20:15)
--- NOTE | 2019-11-08 20:55 | HISTORY AND PHYSICAL ---
DATE OF SERVICE: ATTENDING PRIMARY CARE PHYSICIAN: Dr. Ruby. HISTORY OF PRESENT ILLNESS: The patient is a 54-year-old female who presented to the Emergency Department with intermittent episodes of nausea as well as pain in the epigastric region with radiation towards the right shoulder. She has an extensive past medical history including COPD, hepatitis C, alcohol abuse as well as liver cirrhosis and esophageal varices. A CT scan was performed, which did show mild gallbladder wall inflammation as well as gallstones. There was also a small amount of ascites in the peritoneal cavity. She does not report any fever nor chills as well as no recent inadvertent weight loss. PAST MEDICAL HISTORY: COPD, hepatitis C, liver cirrhosis, gastroesophageal reflux disease, esophageal varices, fibromyalgia, hypertension, history of nephrolithiasis, ADHD, anxiety. PAST SURGICAL HISTORY: Tonsillectomy, low back surgery. ALLERGIES: FENTANYL, CODEINE. MEDICATIONS: Albuterol, alprazolam, amlodipine, furosemide, gabapentin, levothyroxine, Protonix, meloxicam, tramadol. SOCIAL HISTORY: Positive smoke 40 pack years. Positive THC. Previous history of heavy alcohol abuse; however, has quit and has not drank alcohol for the past 6 months. FAMILY HISTORY: Brother, colon cancer. Mother, brain cancer. Father, myocardial infarction. VITAL SIGNS: Temperature 37.0, blood pressure 102/52, pulse 69, respirations 20, pulse ox 95% on room air. REVIEW OF SYSTEMS: This is a well-nourished female, currently in no acute distress. She is not experiencing any shortness of breath or difficulty breathing. No chest pain, palpitations, diaphoresis. Intermittent episodes of nausea, no vomiting. Does not report any hematemesis, no coffee ground emesis. No diarrhea, no constipation, no red blood per rectum, no dark tarry stools. No fever, chills, no recent inadvertent weight loss. All other review of systems negative. PHYSICAL EXAMINATION: CHEST: Distant breath sounds and scattered wheezes bilaterally. HEART: Regular, no murmurs. EXTREMITIES: No lower extremity edema, negative Homans sign. HEENT: No scleral icterus. NECK: No cervical lymphadenopathy. ABDOMEN: Soft, nondistended. There is pain upon deep palpation of the right upper abdominal quadrant. No peritoneal signs. No hernias. SKIN: Warm, dry. LABORATORY DATA: WBC 6.0, hemoglobin 10.2, hematocrit 31, platelets 248. BUN 5, creatinine 0.58. Total bilirubin 1.3. ASSESSMENT AND PLAN: A 54-year-old female with acute on chronic calculous cholecystitis. The natural history of gallbladder disease was explained to the patient including the risks and benefits of surgery. She is in full understanding of this and would like to proceed with a laparoscopic cholecystectomy, which we will proceed with on this admission. Before proceeding with surgery, we will get medical clearance. Job ID: [id number] DocumentID: [id number] Dictated Date: 11/08/2019 20:34:41 [employer] Date: 11/08/2019 20:55:19 Dictated By: KAROLINE STONE MD MTDD
[2019-11-08 21:30] VITALS: BP 118/57
[2019-11-08] MEDS: CATHETER FLUSH 10 ML SYR IV SCH (22:07)
[2019-11-09] VITALS (7 sets, daily range): BP systolic 100–121; BP diastolic 48–68
[2019-11-09] MEDS: HYDROmorphone 2 MG/ML VIAL (DILAUDID) IV PRN ×5 (00:18→19:53)
[2019-11-09 05:35] LABS: BASOPHILS # (AUTO) 0.1 10^3/uL (0.0-0.1); BASOPHILS % (AUTO) 1 % (0-10); EOSINOPHILS # (AUTO) 0.1 10^3/uL (0.0-0.3); EOSINOPHILS % (AUTO) 3 % (0-10); HEMATOCRIT 27 % (35-52); HEMOGLOBIN 8.7 G/DL (11.5-16.0); LYMPHOCYTES # (AUTO) 1.1 X 10^3 (1.0-4.0); LYMPHOCYTES % (AUTO) 24 % (12-44); MEAN CORPUSCULAR HEMOGLOBIN 29 PG (25-34); MEAN CORPUSCULAR HGB CONC 32 G/DL (32-36); MEAN CORPUSCULAR VOLUME 91 FL (80-99); MEAN PLATELET VOLUME 11.3 FL (7.4-10.4); MONOCYTES # (AUTO) 0.5 X 10^3 (0.0-1.0); MONOCYTES % (AUTO) 12 % (0-12); NEUTROPHILS # (AUTO) 2.6 X 10^3 (1.8-7.8); NEUTROPHILS % (AUTO) 60 % (42-75); PLATELET COUNT 219 10^3/uL (130-400); RED CELL DISTRIBUTION WIDTH 16.2 % (10.0-14.5); WHITE BLOOD COUNT 4.4 10^3/uL (4.3-11.0)
[2019-11-09 05:40] LABS: CHLORIDE 94 MMOL/L (98-107); POTASSIUM 3.4 MMOL/L (3.6-5.0)
[2019-11-09 05:41] LABS: CALCIUM 7.5 MG/DL (8.5-10.1); GLUCOSE 113 MG/DL (70-105)
[2019-11-09 05:43] LABS: INR 1.1 (0.8-1.4)
[2019-11-09 06:03] LABS: BUN/CREATININE RATIO 8; CARBON DIOXIDE 20 MMOL/L (21-32); CREATININE SERUM 0.63 MG/DL (0.60-1.30); GFR ESTIMATED > 60
[2019-11-09 06:15] LABS: SODIUM 124 MMOL/L (135-145)
[2019-11-09] MEDS: CATHETER FLUSH 10 ML SYR IV SCH ×3 (06:28→22:43)
[2019-11-09] MEDS ORDERED: KCL 20 MEQ TAB (K-DUR) PO SCH (07:00)
[2019-11-09] MEDS ORDERED: PANTOPRAZOLE 40 MG (PROTONIX) TAB PO SCH (07:00)
--- NOTE | 2019-11-09 08:45 | NUR ---
DILAUDID 1MG IV FOR ABD PAIN. APPEARS MORE CONFUSED AND IRRATIONAL THAN ON ADMIT YESTERDAY. DR. LYNCH NOTIFIED AND URINE DRUG SCREEN ORDERED.
[2019-11-09] MEDS: NS IV 1000 ML 1,000 ML IV SCH ×2 (08:58→22:43)
[2019-11-09] MEDS: CIPROFLOXACIN IV 400MG/200ML 200 ML IV SCH ×2 (09:00→19:44)
[2019-11-09] MEDS ORDERED: FUROSEMIDE 20 MG (LASIX) TAB PO SCH (09:00)
[2019-11-09 10:21] LABS: AMPHETAMINE SCREEN, URINE NEGATIVE (NEGATIVE); BARBITURATE SCREEN URINE NEGATIVE (NEGATIVE); BENZODIAZEPINES SCREEN URINE POSITIVE (NEGATIVE); CANNABINOID SCREEN, URINE NEGATIVE (NEGATIVE); COCAINE SCREEN URINE NEGATIVE (NEGATIVE); METHADONE STAT NEGATIVE (NEGATIVE); METHAMPHETAMINE SCREEN URINE S NEGATIVE (NEGATIVE); OPIATE SCREEN URINE POSITIVE (NEGATIVE); OXYCODONE STAT POSITIVE (NEGATIVE); PROPOXYPHENE STAT NEGATIVE (NEGATIVE); TRICYCLIC ANTIDEPRESSANTS SCRE NEGATIVE (NEGATIVE)
--- NOTE | 2019-11-09 10:29 | NUR ---
DR. STONE HERE TO SEE PT. PRN ATIVAN ORDERED.
[2019-11-09] MEDS: ADVAIR HFA 115/21 MCG INHALER 8 GM IH SCH ×2 (10:39→20:55)
--- NOTE | 2019-11-09 10:45 | Progress Note ---
Subjective Date Seen by a Provider: Nov 09, 2019 Time Seen by a Provider: 10:00 Subjective/Events-last exam patient seems extremely non-compliant and hx not accurate. states she did drink alcohol 24 october. states pain but otherwise seems comfortable. sees dr. aparicio for hepatitis and esophageal varices. Objective Exam Vital Signs Date Time Temp Pulse Resp B/P (MAP) Pulse Ox O2 Delivery O2 Flow Rate FiO2 11/09/19 08:00 36.7 68 20 121/68 (85) 95 Room Air 11/09/19 04:05 36.5 67 18 103/48 (66) 95 Room Air 11/09/19 00:20 37.0 69 18 104/55 (71) 96 Room Air 11/08/19 21:30 36.0 80 96 11/08/19 20:00 96 Room Air 11/08/19 19:39 37.0 69 20 102/52 (69) 95 Room Air 11/08/19 19:37 Room Air 11/08/19 17:57 37.0 72 18 106/63 94 Room Air 11/08/19 17:49 71 18 113/54 96 Room Air 11/08/19 14:25 36.0 80 18 118/57 (77) 96 I & O 11/09/19 07:00 Intake Total 1272 ml Output Total 1200 ml Balance 72 ml Capillary Refill : Less Than 3 SecondsLess Than 3 Seconds General Appearance: No Apparent Distress HEENT: PERRL/EOMI Neck: Full Range of Motion Respiratory: Decreased Breath Sounds Cardiovascular: Regular Rate, Rhythm Gastrointestinal: normal bowel sounds, tenderness Extremity: Normal Capillary Refill Neurologic/Psychiatric: Alert Skin: Normal Color Lymphatic: No Adenopathy Results Lab Laboratory Tests 11/08/19 14:30: White Blood Count 6.0, Red Blood Count 3.40L, Hemoglobin 10.2L, Hematocrit 31L, Mean Corpuscular Volume 91, Mean Corpuscular Hemoglobin 30, Mean Corpuscular Hemoglobin Concent 33, Red Cell Distribution Width 16.4H, Platelet Count 248, Mean Platelet Volume 11.4H, Neutrophils (%) (Auto) 74, Lymphocytes (%) (Auto) 17, Monocytes (%) (Auto) 8, Eosinophils (%) (Auto) 0, Basophils (%) (Auto) 1, Neutrophils # (Auto) 4.4, Lymphocytes # (Auto) 1.0, Monocytes # (Auto) 0.5, Eosinophils # (Auto) 0.0, Basophils # (Auto) 0.0 11/08/19 14:55: Sodium Level 128L, Potassium Level 3.5L, Chloride Level 95L, Carbon Dioxide Level 19L, Anion Gap 14, Blood Urea Nitrogen 5L, Creatinine 0.58L, Estimat Glomerular Filtration Rate > 60, BUN/Creatinine Ratio 9, Glucose Level 101, Calcium Level 7.8L, Corrected Calcium 8.8, Total Bilirubin 1.3H, Aspartate Amino Transf (AST/SGOT) 22, Alanine Aminotransferase (ALT/SGPT) 7, Alkaline Phosphatase 59, Ammonia 41H, Troponin I < 0.028, C-Reactive Protein High Sensitivity 1.95H, Total Protein 7.3, Albumin 2.7L, Lipase 9, Serum Alcohol < 10 11/09/19 05:03: White Blood Count 4.4, Red Blood Count 2.96L, Hemoglobin 8.7L, Hematocrit 27L, Mean Corpuscular Volume 91, Mean Corpuscular Hemoglobin 29, Mean Corpuscular Hem oglobin Concent 32, Red Cell Distribution Width 16.2H, Platelet Count 219, Mean Platelet Volume 11.3H, Neutrophils (%) (Auto) 60, Lymphocytes (%) (Auto) 24, Monocytes (%) (Auto) 12, Eosinophils (%) (Auto) 3, Basophils (%) (Auto) 1, Neutrophils # (Auto) 2.6, Lymphocytes # (Auto) 1.1, Monocytes # (Auto) 0.5, Eosinophils # (Auto) 0.1, Basophils # (Auto) 0.1, Sodium Level 124*L, Potassium Level 3.4L, Chloride Level 94L, Carbon Dioxide Level 20L, Anion Gap 10, Blood Urea Nitrogen 5L, Creatinine 0.63, Estimat Glomerular Filtration Rate > 60, BUN/Creatinine Ratio 8, Glucose Level 113H, Calcium Level 7.5L, Prothrombin Time 15.0H, INR Comment 1.1, Activated Partial Thromboplast Time 31 11/09/19 09:45: Urine Opiates Screen POSITIVEH, Urine Oxycodone Screen POSITIVEH, Urine Methadone Screen NEGATIVE, Urine Propoxyphene Screen NEGATIVE, Urine Barbiturates Screen NEGATIVE, Ur Tricyclic Antidepressants Screen NEGATIVE, Urine Phencyclidine Screen NEGATIVE, Urine Amphetamines Screen NEGATIVE, Urine Methamphetamines Screen NEGATIVE, Urine Benzodiazepines Screen POSITIVEH, Urine Cocaine Screen NEGATIVE, Urine Cannabinoids Screen NEGATIVE Assessment/Plan Assessment/Plan Assess & Plan/Chief Complaint chronic calculous cholecystitis with hx hep c, ETOH abuse and esophageal varices. CT viewed. gallbladder wall thickening mild and more chronic. hyponatremic. patient high risk and will medically manage and patient will need eventual referral back to GI and surgery. Clinical Quality Measures DVT/VTE Risk/Contraindication: Risk Factor Score Per Nursin RFS Level Per Nursing on Admit: 4+=Very High KAROLINE STONE MD Nov 09, 2019 10:45
[2019-11-09] MEDS: LORazepam INJ 2 MG/ML (ATIVAN) VIAL IVP PRN ×2 (10:58→17:51)
--- NOTE | 2019-11-09 11:00 | NUR ---
ATIVAN 1MG IV FOR ANXIETY WITH CYNTHIA FREEMAN AND DR. LYNCH WITNESS TO ADMINISTRATION. REITERATED IN FRONT OF DR. LYNCH THAT NEXT PAIN MED WAS NOT DUE UNTIL 1300 AND ANXIETY MED UNTIL 1700. DR. STONE CALLED 15 MIN AFTER HE LEFT PTS ROOM PER PT REQUEST FOR MORE PAIN MEDICATION AND DR. STONE DID NOT GIVE ORDERS FOR ADDITIONAL MEDICATION.
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
--- NOTE | 2019-11-09 12:56 | NUR ---
ASSESSED WITH LUZ FRY AND MYSELF. PT VERBALIZES NO NEED FOR PAIN MEDICATION.
[2019-11-09] MEDS: metroNIDAZOLE 500MG/100ML IVPB 100 ML IV SCH ×2 (15:06→22:43)
--- NOTE | 2019-11-09 15:26 | NUR ---
JARRELL 1MG IV WITH MAYRA FREEMAN WITNESS TO ADMINISTRATION. PT STATES SHE WANTS TO GO HOME. OFFERED AMA PAPERS. PT STATES SHE "WILL THINK ABOUT IT."
--- NOTE | 2019-11-09 17:54 | NUR ---
ATIVAN 1MG IV FOR C/O ANXIETY. PT ANGRY WITH THIS RN FOR DILUTING AND GIVING VIA PUMP. STATES "I WANT IT GIVEN HERE" AND POINTING TO PORT CLOSEST TO SITE. EXPLAINED THAT MED HAD TO BE DILUTED PER PHARMACY.
[2019-11-09] MEDS: ALPRAZolam 1 MG (XANAX) TAB PO PRN (19:54)
[2019-11-10] VITALS: BP 100/55
[2019-11-10] MEDS: HYDROmorphone 2 MG/ML VIAL (DILAUDID) IV PRN (01:03)
[2019-11-10] MEDS: LORazepam INJ 2 MG/ML (ATIVAN) VIAL IVP PRN (03:19)
[2019-11-10] MEDS: NS IV 1000 ML 1,000 ML IV SCH (03:19)
--- NOTE | 2019-11-10 04:20 | NUR ---
AMANDA TILLMAN SIGNED OUT AMA. IV DC'D AND PATIENTS BELONGINGS RETURNED TO PATIENT. PATIENT LEFT FLOOR AMBULATORY, ACCOMPANIED DOWN TO ED EXIT DOORS BY THIS RN. PATIENT WAS INFORMED THE HOSPITAL COULDN'T GIVE HER A TAXI VOUCHER AND SHE WOULD BE IN CHARGE OF FINDING HER OWN RIDE HOME.
--- NOTE | 2019-11-10 08:09 | NUR ---
Received dietary consult for MST Score. Note pt has discharged at this time. Rashid Jameson, MS, RD, LD
== END 2019-11-10 04:20 | disposition left against medical advice (07) | DRG 445 ==
LOC: EDUNIT# 14:22 → ER 14:23 → 4TH 17:15
PROVIDERS: ADMIT Surgery; ATTEND Surgery
DX: K80.12 Calculus of gallbladder with acute and chronic cholecystitis without obstruction (principal); I85.10 Secondary esophageal varices without bleeding; E87.1 Hypo-osmolality and hyponatremia; K70.31 Alcoholic cirrhosis of liver with ascites; F10.10 Alcohol abuse, uncomplicated; B19.20 Unspecified viral hepatitis C without hepatic coma; F12.90 Cannabis use, unspecified, uncomplicated; I10 Essential (primary) hypertension; J44.9 Chronic obstructive pulmonary disease, unspecified; F41.9 Anxiety disorder, unspecified; D64.9 Anemia, unspecified; F17.210 Nicotine dependence, cigarettes, uncomplicated; K21.9 Gastro-esophageal reflux disease without esophagitis; R01.1 Cardiac murmur, unspecified; F90.9 Attention-deficit hyperactivity disorder, unspecified type; M19.91 Primary osteoarthritis, unspecified site; M79.7 Fibromyalgia; Z91.19 Patient's noncompliance with other medical treatment and regimen; Z90.89 Acquired absence of other organs
CPT/HCPCS: 36415; 71046; 71260; 74177; 80048; 80053; 80306; 80320; 82140; 83690; 84484; 85025; 85610; 85730; 86141; 93005; 94640

== ENCOUNTER 2019-12-24 09:37 | Emergency (ER) | payer MEDICARE, MEDICAID ==
[~2019-12-24] VITALS: Ht 165 cm; Wt 58.9 kg
[2019-12-24] MEDS ORDERED: ONDANSETRON 4 MG/2 ML (SDV) Z0FRAN ONE (10:07)
--- NOTE | 2019-12-24 10:10 | NUR ---
PT COMPLAINS OF BACK PAIN DUE TO VOMITING YESTERDAY. STATES HER PAIN MEDS IS NOT HELPING.
[2019-12-24] MEDS ORDERED: ONDANSETRON 4 MG/2 ML (SDV) Z0FRAN IVP ONE (10:15)
[2019-12-24] MEDS ORDERED: LACTATED RINGERS 1,000 ML IV ONE (10:49)
[2019-12-24 10:55] LABS: BILIRUBIN,URINE NEGATIVE (NEGATIVE); CLARITY,URINE CLEAR; COLOR,URINE YELLOW; GLUCOSE, URINE (UA) NEGATIVE (NEGATIVE); KETONES,URINE NEGATIVE (NEGATIVE); LEUKOCYTE ESTERASE ,URINE NEGATIVE (NEGATIVE); NITRITE,URINE NEGATIVE (NEGATIVE); PROTEIN,URINE NEGATIVE (NEGATIVE)
[2019-12-24 10:57] LABS: BASOPHILS # (AUTO) 0.1 10^3/uL (0.0-0.1); BASOPHILS % (AUTO) 1 % (0-10); EOSINOPHILS # (AUTO) 0.2 10^3/uL (0.0-0.3); EOSINOPHILS % (AUTO) 3 % (0-10); HEMATOCRIT 32 % (35-52); HEMOGLOBIN 10.2 G/DL (11.5-16.0); LYMPHOCYTES # (AUTO) 1.9 X 10^3 (1.0-4.0); LYMPHOCYTES % (AUTO) 32 % (12-44); MEAN CORPUSCULAR HEMOGLOBIN 26 PG (25-34); MEAN CORPUSCULAR HGB CONC 32 G/DL (32-36); MEAN CORPUSCULAR VOLUME 80 FL (80-99); MEAN PLATELET VOLUME 10.7 FL (7.4-10.4); MONOCYTES # (AUTO) 0.6 X 10^3 (0.0-1.0); MONOCYTES % (AUTO) 9 % (0-12); NEUTROPHILS # (AUTO) 3.4 X 10^3 (1.8-7.8); NEUTROPHILS % (AUTO) 55 % (42-75); PLATELET COUNT 228 10^3/uL (130-400); RED CELL DISTRIBUTION WIDTH 17.5 % (10.0-14.5); WHITE BLOOD COUNT 6.1 10^3/uL (4.3-11.0)
[2019-12-24 11:02] LABS: ALBUMIN 3.7 GM/DL (3.2-4.5); CHLORIDE 93 MMOL/L (98-107); SODIUM 132 MMOL/L (135-145)
[2019-12-24 11:04] LABS: CALCIUM 8.9 MG/DL (8.5-10.1)
[2019-12-24 11:05] LABS: GLUCOSE 100 MG/DL (70-105); TOTAL PROTEIN 8.7 GM/DL (6.4-8.2)
[2019-12-24 11:06] LABS: CARBON DIOXIDE 24 MMOL/L (21-32)
[2019-12-24 11:07] LABS: BACTERIA,URINE NEGATIVE /HPF; WBC,URINE RARE /HPF; YEAST,URINE FEW /HPF
[2019-12-24 11:07] LABS: BILIRUBIN,TOTAL 0.7 MG/DL (0.1-1.0)
[2019-12-24 11:08] LABS: ALKALINE PHOSPHATASE 99 U/L (40-136)
[2019-12-24 11:09] LABS: CREATININE SERUM 0.61 MG/DL (0.60-1.30); GFR ESTIMATED > 60
[2019-12-24 11:10] LABS: BUN/CREATININE RATIO 8
[2019-12-24 11:11] LABS: MAGNESIUM 1.7 MG/DL (1.6-2.4)
[2019-12-24 11:12] LABS: ALANINE AMINOTRANSFERASE 26 U/L (0-55)
--- NOTE | 2019-12-24 11:24 | NUR ---
WARM BLANKET GIVEN.
[2019-12-24] MEDS ORDERED: KETOROLAC 30 MG/ML VIAL IVP ONE (12:00)
--- NOTE | 2019-12-24 12:00 | Diagnostic Imaging Report ---
INDICATION: COPD. Shortness of breath. COMPARISON: Chest x-ray 11/08/2019. FINDINGS: Portable chest. The lungs are well-aerated and clear. There is no air-trapping. The heart is not enlarged. No pulmonary edema. No hilar adenopathy. No pneumothorax or pleural effusion. No bony abnormalities. IMPRESSION: Normal portable chest. Dictated by: Dictated on workstation # [id number]
--- NOTE | 2019-12-24 12:20 | ED General ---
General Chief Complaint: Cough/Cold/Flu Symptoms Stated Complaint: COUGH, DIARRHEA, FEVER, NAUSEA Nursing Triage Note: ARRIVED VIA AMB FROM HOME WITH COMPLAINTS OF COUGH, FEVER, HEADAHE AND DIARRHEA X2 DAYS. 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 STATES SHE DRANK BEER THIS AM TO CALM HER STOMACH AND HER PAIN MEDS ARE NOT HELPING. Nursing Sepsis Screen: No Definite Risk Source of Information: Patient Exam Limitations: No Limitations History of Present Illness Date Seen by Provider: Dec 24, 2019 Time Seen by Provider: 10:10 Initial Comments this 54-year-old woman presents to the emergency room with cough, subjective fever, headaches, diarrhea, and vomiting 2 days. Vomiting has caused exacerbation of her chronic back pain. She admits to drinking some beer this morning to try to calm her pain. She has no known leach virus exposures. Allergies and Home Medications Allergies Coded Allergies: codeine (Verified Allergy, Unknown, 11/08/19) fentanyl (Verified Adverse Reaction, Unknown, PATIENT REQUEST NOT TO HAVE IT , 11/08/19) Home Medications Albuterol Sulfate 18 Gm Hfa.aer.ad, 2 PUFF IH Q4H PRN for SHORTNESS OF BREATH, (Reported) Alprazolam 0.5 Mg Tablet, 0.5 MG PO HS PRN for ANXIETY, (Reported) Amlodipine Besylate 10 Mg Tablet, 10 MG PO DAILY, (Reported) Fluticasone/Salmeterol 1 Each Blst.w.dev, 1 PUFF INH BID, (Reported) Furosemide 20 Mg Tablet, 20 MG PO DAILY, (Reported) Gabapentin 300 Mg Capsule, 600 MG PO HS, (Reported) TAKES 2 (300MG) CAPSULES Levothyroxine Sodium 25 Mcg Tablet, 25 MCG PO DAILY, (Reported) Meloxicam 15 Mg Tablet, 15 MG PO DAILY, (Reported) Ondansetron 4 Mg Tab.rapdis, 4 MG PO Q6H PRN for NAUSEA/VOMITING-1ST LINE, (Reported) Ondansetron 4 Mg Tab.rapdis, 4 MG PO Q6H PRN for NAUSEA/VOMITING Prescribed by: PJ TREJO on 08/20/19 1134 Pantoprazole Sodium 40 Mg Tablet.dr, 40 MG PO DAILY, (Reported) Pantoprazole Sodium 40 Mg Tablet.dr, 40 MG PO BID Prescribed by: MARTIN HOLLINGSWORTH on 03/27/17 1238 Tramadol HCl 50 Mg Tablet, 50 MG PO BID PRN for PAIN-MILD, (Reported) Patient Home Medication List Home Medication List Reviewed: Yes Review of Systems Review of Systems Constitutional: see HPI EENTM: no symptoms reported Respiratory: see HPI Cardiovascular: no symptoms reported Gastrointestinal: see HPI Genitourinary: no symptoms reported : No Musculoskeletal: see HPI Skin: no symptoms reported Psychiatric/Neurological: See HPI Hematologic/Lymphatic: No Symptoms Reported Immunological/Allergic: no symptoms reported Past Srduymd-Gwjnpi-Svuqej Hx Past Med/Social Hx: Reviewed Nursing Past Med/Soc Hx Patient Social History Alcohol Use: Regular Use Number of Drinks Today: AA Alcohol Beverage of Choice: Beer Recreational Drug Use: Yes (PRESENT AND PAST IV DRUG, SMOKING THC, ALCOHOL, NARCOTICS) Drug of Choice: MARIJUANA Smoking Status: Current Everyday Smoker Type Used: Cigarettes 2nd Hand Smoke Exposure: Yes Recent Foreign Travel: No Contact w/Someone Who Travel: No Recent Infectious Disease Expo: No Recent Hopitalizations: No Immunizations Up To Date Tetanus Booster (TDap): More than 5yrs PED Vaccines UTD: No Date of Pneumonia Vaccine: Jul 22, 2008 Date of Influenza Vaccine: Jan 16, 2019 Seasonal Allergies Seasonal Allergies: Yes Past Medical History Surgeries: Yes (back) Abdominal, Adenoidectomy, Orthopedic, Tonsillectomy Respiratory: Yes Asthma, COPD Currently Using CPAP: No Currently Using BIPAP: No Cardiac: Yes Heart Murmur, Hypertension Neurological: Yes 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 Disorders: Yes 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 Sexually Transmitted Disease: No HIV/AIDS: No Genitourinary: No Kidney Stones Gastrointestinal: Yes (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; ALCOHOLIC GASTRITIS) Gastroesophageal Reflux, Liver Disease/Jaundice, Gastrointestinal Bleed, Esophag eal Varices, Hepatitis, Cirrhosis Musculoskeletal: Yes Arthritis, Fibromyalgia, Chronic Back Pain Endocrine: No HEENT: No Cancer: No Psychosocial: Yes ADD/ADHD, Anxiety Integumentary: No Blood Disorders: No Adverse Reaction/Blood Tranf: No Family Medical History Alcoholism G8 SISTER Cardiovascular disease 19 FATHER Colon cancer G8 BROTHER Diabetes mellitus G8 BROTHER Drug abuse G8 SISTER FH: cancer 19 MOTHER (BRAIN) G8 BROTHER Glaucoma 19 FATHER Hypertension 19 FATHER Myocardial infarction 19 FATHER Psychosocial problem 19 FATHER G8 BROTHER G8 SISTER No Family History of: AIDS Abdominal aortic aneurysm Alzheimer's disease Arthritis Asthma Completed stroke Parkinson's disease Respiratory disorder Seizure disorder Severe allergy Thyroid disease No Pertinent Family Hx Physical Exam Vital Signs Vital Signs - First Documented 12/24/19 09:40 Temp 35.7 Pulse 85 Resp 16 B/P (MAP) 160/91 (114) Pulse Ox 96 O2 Delivery Room Air Capillary Refill : Less Than 3 Seconds Height, Weight, BMI Height: 5'4.00" Weight: 127lbs. 4.0oz. 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 Norm as Tested Skin: Normal Color, Warm/Dry Progress/Results/Core Measures Suspected Sepsis Recent Fever Within 48 Hours: Yes Infection Criteria Present: Suspected New Infection New/Unexplained Altered Menta: No Sepsis Screen: No Definite Risk SIRS Temperature: Pulse: 85 Respiratory Rate: 16 Laboratory Tests 12/24/19 09:50: White Blood Count 6.1 Blood Pressure 160 /91 Mean: 114 Laboratory Tests 12/24/19 09:50: Creatinine 0.61, Platelet Count 228, Total Bilirubin 0.7 Results/Orders Lab Results Laboratory Tests Test 12/24/19 09:50 12/24/19 10:00 12/24/19 11:03 Range/Units White Blood Count 6.1 4.3-11.0 10^3/uL Red Blood Count 3.96 L 4.35-5.85 10^6/uL Hemoglobin 10.2 L 11.5-16.0 G/DL Hematocrit 32 L 35-52 % Mean Corpuscular Volume 80 80-99 FL Mean Corpuscular Hemoglobin 26 25-34 PG Mean Corpuscular Hemoglobin Concent 32 32-36 G/DL Red Cell Distribution Width 17.5 H 10.0-14.5 % Platelet Count 228 130-400 10^3/uL Mean Platelet Volume 10.7 H 7.4-10.4 FL Neutrophils (%) (Auto) 55 42-75 % Lymphocytes (%) (Auto) 32 12-44 % Monocytes (%) (Auto) 9 0-12 % Eosinophils (%) (Auto) 3 0-10 % Basophils (%) (Auto) 1 0-10 % Neutrophils # (Auto) 3.4 1.8-7.8 X 10^3 Lymphocytes # (Auto) 1.9 1.0-4.0 X 10^3 Monocytes # (Auto) 0.6 0.0-1.0 X 10^3 Eosinophils # (Auto) 0.2 0.0-0.3 10^3/uL Basophils # (Auto) 0.1 0.0-0.1 10^3/uL Sodium Level 132 L 135-145 MMOL/L Potassium Level 4.0 3.6-5.0 MMOL/L Chloride Level 93 L 98-107 MMOL/L Carbon Dioxide Level 24 21-32 MMOL/L Anion Gap 15 H 5-14 MMOL/L Blood Urea Nitrogen 5 L 7-18 MG/DL Creatinine 0.61 0.60-1.30 MG/DL Estimat Glomerular Filtration Rate > 60 BUN/Creatinine Ratio 8 Glucose Level 100 70-105 MG/DL Calcium Level 8.9 8.5-10.1 MG/DL Corrected Calcium 9.1 8.5-10.1 MG/DL Magnesium Level 1.7 1.6-2.4 MG/DL Total Bilirubin 0.7 0.1-1.0 MG/DL Aspartate Amino Transf (AST/SGOT) 64 H 5-34 U/L Alanine Aminotransferase (ALT/SGPT) 26 0-55 U/L Alkaline Phosphatase 99 40-136 U/L C-Reactive Protein High Sensitivity 0.10 0.00-0.50 MG/DL Total Protein 8.7 H 6.4-8.2 GM/DL Albumin 3.7 3.2-4.5 GM/DL Serum Alcohol 52 H <10 MG/DL Urine Color YELLOW Urine Clarity CLEAR Urine pH 6.0 5-9 Urine Specific Pattison 1.020 1.016-1.022 Urine Protein NEGATIVE NEGATIVE Urine Glucose (UA) NEGATIVE NEGATIVE Urine Ketones NEGATIVE NEGATIVE Urine Nitrite NEGATIVE NEGATIVE Urine Bilirubin NEGATIVE NEGATIVE Urine Urobilinogen 0.2 < = 1.0 MG/DL Urine Leukocyte Esterase NEGATIVE NEGATIVE Urine RBC (Auto) NEGATIVE NEGATIVE Urine RBC NONE /HPF Urine WBC RARE /HPF Urine Squamous Epithelial Cells 5-10 /HPF Urine Crystals NONE /LPF Urine Bacteria NEGATIVE /HPF Urine Casts NONE /LPF Urine Mucus SMALL H /LPF Urine Yeast FEW H /HPF Urine Culture Indicated NO My Orders Orders - GOLD HOWARD MD Ondansetron Injection (Zofran Injectio (12/24/19 10:15) Ondansetron Injection (Zofran Injectio (12/24/19 10:07) Alcohol (12/24/19 10:49) Cbc With Automated Diff (12/24/19 10:49) Comprehensive Metabolic Panel (12/24/19 10:49) Hs C Reactive Protein (12/24/19 10:49) Magnesium (12/24/19 10:49) Ua Culture If Indicated (12/24/19 10:49) Ed Iv/Invasive Line Start (12/24/19 10:49) Chest 1 View, Ap/Pa Only (12/24/19 10:49) Coronavirus Sars-Cov-2 So 2018 (12/24/19 10:49) Lactated Ringers (Lr 1000 Ml Iv Solution (12/24/19 10:49) Ketorolac Injection (Toradol Injection) (12/24/19 12:00) Medications Given in ED Current Medications Medications Dose Ordered Sig/Pino Route Start Time Stop Time Status Last Admin Dose Admin Ketorolac Tromethamine 15 mg ONCE ONCE IVP 12/24/19 12:00 12/24/19 12:01 DC 12/24/19 12:32 15 MG Lactated Ringer's 1,000 ml @ 0 mls/hr Q0M ONCE IV 12/24/19 10:49 12/24/19 10:52 DC 12/24/19 11:00 0 MLS/HR Ondansetron HCl 8 mg ONCE ONCE IVP 12/24/19 10:15 12/24/19 10:16 DC 12/24/19 10:10 8 MG Vital Signs/I&O 12/24/19 12/24/19 09:40 12:34 Temp 35.7 Pulse 85 77 Resp 16 16 B/P (MAP) 160/91 (114) 147/78 Pulse Ox 96 98 O2 Delivery Room Air Room Air Capillary Refill : Less Than 3 Seconds Blood Pressure Mean: 114 Progress Note : Progress Note Patient received Zofran, Toradol, and IV fluids. Workup was essentially unremarkable. COVID-19 swab was obtained. Discharge instructions reviewed. Diagnostic Imaging Diagonstic Imaging: Xray Plain Films/CT/US/NM/MRI: chest Comments chest x-ray viewed by me and report reviewed. See report below: NAME: AMANDA TILLMAN [facility] REC#: [id number] PT STATUS: DEP ER : 1965 PHYSICIAN: GOLD HOWARD MD ADMIT DATE: 12/24/19/ER Signed Date of Exam:12/24/19 CHEST 1 VIEW, AP/PA ONLY INDICATION: COPD. Shortness of breath. COMPARISON: Chest x-ray 11/08/2019. FINDINGS: Portable chest. The lungs are well-aerated and clear. There is no air-trapping. The heart is not enlarged. No pulmonary edema. No hilar adenopathy. No pneumothorax or pleural effusion. No bony abnormalities. IMPRESSION: Normal portable chest. Dictated by: Dictated on workstation # [id number] Dict: 12/24/19 1146 Trans: 12/24/19 1708 [id number] Interpreted by: MARIANO COVARRUBIAS MD Electronically signed by: MARIANO COVARRUBIAS MD 12/24/19 1708 Departure Impression Primary Impression: Flu-like symptoms Additional Impressions: Person under investigation for COVID-19 Nausea and vomiting Qualified Codes: R11.2 - Nausea with vomiting, unspecified Exacerbation of chronic back pain Disposition: 01 HOME, SELF-CARE Condition: Improved Departure-Patient Inst. Decision time for Depature: 12:22 Referrals: RINKU MANDEL DO (PCP/Family) Primary Care Physician Patient Instructions: Coronavirus Disease 2019 (COVID-19) (DC) Add. Discharge Instructions: You have been tested for COVID-19. Quarantine at home until the results of your tests are known. Adhere to a clear liquid diet for the next 24 hours. Then gradually advance your diet with small quantities of bland food as tolerated. Use your Zofran as prescribed for nausea and vomiting. Return to care if you have worsening symptoms. Please call ahead to inform staff you are a person under investigation for COVID-19 before arriving at a ho spital or clinic. For pain you may take a combination of ibuprofen up to 600 mg every 6 hours and Tylenol (acetaminophen) up to 1000 mg every 6 hours. All discharge instructions reviewed with patient and/or family. Voiced understanding. Copy Copies To 1: RINKU MANDEL JOSHUA T MD Dec 24, 2019 12:20
[2019-12-24 12:34] VITALS: BP 147/78
== END 2019-12-24 12:34 | disposition home or self-care (01) ==
LOC: EDUNIT# 09:37 → ER 09:39
DX: J11.1 Influenza due to unidentified influenza virus with other respiratory manifestations (principal); R11.2 Nausea with vomiting, unspecified; G89.29 Other chronic pain; M54.9 Dorsalgia, unspecified; K21.9 Gastro-esophageal reflux disease without esophagitis; F41.9 Anxiety disorder, unspecified; I10 Essential (primary) hypertension; F17.210 Nicotine dependence, cigarettes, uncomplicated; Z88.5 Allergy status to narcotic agent; Z88.6 Allergy status to analgesic agent; Z20.828 Contact with and (suspected) exposure to other viral communicable diseases; Z82.49 Family history of ischemic heart disease and other diseases of the circulatory system; Z80.8 Family history of malignant neoplasm of other organs or systems; Z80.0 Family history of malignant neoplasm of digestive organs; Z79.891 Long term (current) use of opiate analgesic
CPT/HCPCS: 71045; 80053; 81000; 83735; 85025; 86141; 99284; G0480; U0002; 36415; 80320; 87635

== ENCOUNTER 2020-09-13 10:41 | Emergency (ER) | payer MEDICARE, MEDICAID ==
[~2020-09-13] VITALS: Ht 165 cm; Wt 59.0 kg
[~2020-09-13 10:41] MED LIST changes: +AMLO-251 PO; -AMLO10TA7 PO; +OXC5T PO; -OXYC-471 PO; +OXYC1TAB11 PO; -OXYC5TAB96 PO; -PANT40TA3 PO; +PANT40TA52 PO
[2020-09-13] MEDS ORDERED: morphine INJ 10 MG/ML 1ML (SYR OR VIAL) IVP STA ×2 (11:23→12:27)
[2020-09-13 11:28] LABS: BASOPHILS % (AUTO) 1 % (0-10); HEMATOCRIT 29 % (35-52)
[2020-09-13 11:30] LABS: EOSINOPHILS # (AUTO) 0.1 10^3/uL (0.0-0.3); EOSINOPHILS % (AUTO) 3 % (0-10); HEMOGLOBIN 9.1 g/dL (11.5-16.0); LYMPHOCYTES # (AUTO) 1.2 10^3/uL (1.0-4.0); LYMPHOCYTES % (AUTO) 28 % (12-44); MEAN CORPUSCULAR HEMOGLOBIN 24 pg (25-34); MEAN CORPUSCULAR HGB CONC 31 g/dL (32-36); MEAN CORPUSCULAR VOLUME 75 fL (80-99); MEAN PLATELET VOLUME 10.6 fL (9.0-12.2); MONOCYTES # (AUTO) 0.4 10^3/uL (0.0-1.0); MONOCYTES % (AUTO) 10 % (0-12); NEUTROPHILS # (AUTO) 2.6 10^3/uL (1.8-7.8); NEUTROPHILS % (AUTO) 58 % (42-75); PLATELET COUNT 134 10^3/uL (130-400); WHITE BLOOD COUNT 4.4 10^3/uL (4.3-11.0)
[2020-09-13] MEDS ORDERED: NS IV 1000 ML 1,000 ML IV SCH (11:30)
[2020-09-13 11:37] LABS: ALBUMIN 3.3 GM/DL (3.2-4.5); CHLORIDE 89 MMOL/L (98-107); POTASSIUM 3.3 MMOL/L (3.6-5.0); SODIUM 128 MMOL/L (135-145)
[2020-09-13 11:38] LABS: CALCIUM 8.5 MG/DL (8.5-10.1)
[2020-09-13 11:39] LABS: GLUCOSE 117 MG/DL (70-105); TOTAL PROTEIN 8.3 GM/DL (6.4-8.2)
--- NOTE | 2020-09-13 11:39 | ED Abdominal Pain ---
General Chief Complaint: Abdominal/GI Problems Stated Complaint: N/V,DEHYDRATION Nursing Triage Note: TO ED PER EMS FROM HOME. PATIENT REPORTS THAT SINCE SUNDAY HAS HAD NAUSEA VOMITING NOTICED BLOOD IN VOMIT YESTERDAY. AND THOUGHT HER STOOLS LOOK DARK. HAD ESOPHAGUS SURG A YEAR AGO AT [facility]. FLUIDS INFUSING BY EMS ON ADMIT. Sepsis Screen: No Definite Risk Source of Information: Patient, EMS Exam Limitations: No Limitations History of Present Illness Date Seen by Provider: September 13, 2020 Time Seen by Provider: 11:05 Initial Comments Patient is a 55-year-old female who presents to the emergency department by ambulance today with a chief complaint of nausea vomiting and black tarry stools. Patient states that she started having nausea and vomiting 3 days ago on Sunday. She states that she is vomiting up bloody emesis. She states at that time her stools were also black and tarry. Patient has had history of bleeding in the past with esophageal varices. She seen Dr. Stephenson for a colonoscopy and had some polyps removed. Patient states that she used to be a heavy drinker but only limits herself to 1 or 2 beers a week now. Patient recently had esophageal surgery at [facility] in October (?). She does not recall who the GI doctor she saw was. Patient is not on a blood thinner. She is according to reviewing her medications at the bedside on pantoprazole and Carafate. Patient states that she has not eaten since Sunday. She is only had water. She denies any fevers or chills. She has epigastric abdominal pain. She states that she is not currently very nauseated she did receive 4 mg of Zofran per EMS. She has had 1 L of normal saline per EMS as well. Patient is getting a second liter. She complains of being very dehydrated and dry mouth. All other review of systems reviewed and negative except as stated above. Timing/Duration: 2-3 Days Severity/Quality: Moderate, Aching, Burning Location: Epigastric Activities at Onset: None Modifying Factors: Improves With Antacids Associated Symptoms: Nausea/Vomiting Allergies and Home Medications Allergies Coded Allergies: codeine (Verified Allergy, Unknown, 11/08/19) fentanyl (Verified Adverse Reaction, Unknown, PATIENT REQUEST NOT TO HAVE IT , 11/08/19) Home Medications Albuterol Sulfate 18 Gm Hfa.aer.ad, 2 PUFF IH Q4H PRN for SHORTNESS OF BREATH, (Reported) Alprazolam 0.5 Mg Tablet, 0.5 MG PO HS PRN for ANXIETY, (Reported) Amlodipine Besylate 10 Mg Tablet, 10 MG PO DAILY, (Reported) Fluticasone/Salmeterol 1 Each Blst.w.dev, 1 PUFF INH BID, (Reported) Furosemide 20 Mg Tablet, 20 MG PO DAILY, (Reported) Gabapentin 300 Mg Capsule, 600 MG PO HS, (Reported) TAKES 2 (300MG) CAPSULES Levothyroxine Sodium 25 Mcg Tablet, 25 MCG PO DAILY, (Reported) Meloxicam 15 Mg Tablet, 15 MG PO DAILY, (Reported) Ondansetron 4 Mg Tab.rapdis, 4 MG PO Q6H PRN for NAUSEA/VOMITING-1ST LINE, (Reported) Ondansetron 4 Mg Tab.rapdis, 4 MG PO Q6H PRN for NAUSEA/VOMITING Prescribed by: PJ TREJO on 08/20/19 1134 Pantoprazole Sodium 40 Mg Tablet.dr, 40 MG PO DAILY, (Reported) Pantoprazole Sodium 40 Mg Tablet.dr, 40 MG PO BID Prescribed by: MARTIN HOLLINGSWORTH on 03/27/17 1238 Tramadol HCl 50 Mg Tablet, 50 MG PO BID PRN for PAIN-MILD, (Reported) Patient Home Medication List Home Medication List Reviewed: Yes Review of Systems Review of Systems Constitutional: see HPI EENTM: No Symptoms Reported Respiratory: No Symptoms Reported Cardiovascular: No Symptoms Reported Gastrointestinal: Abdominal Pain, Nausea, Rectal Bleeding, Vomiting Genitourinary: No Symptoms Reported Musculoskeletal: no symptoms reported Skin: no symptoms reported Psychiatric/Neurological: Anxiety All Other Systems Reviewed Negative Unless Noted: Yes Past Agdquhp-Lcetou-Wiseyv Hx Patient Social History Alcohol Use: Denies Use Number of Drinks Today: AA Alcohol Beverage of Choice: Beer Drug of Choice: MARIJUANA Smoking Status: Current Everyday Smoker Type Used: Cigarettes 2nd Hand Smoke Exposure: Yes Recent Infectious Disease Expo: No Recent Hopitalizations: No Immunizations Up To Date Tetanus Booster (TDap): More than 5yrs PED Vaccines UTD: No Date of Pneumonia Vaccine: Jul 22, 2008 Date of Influenza Vaccine: Jan 16, 2019 Seasonal Allergies Seasonal Allergies: Yes Past Medical History Surgeries: Yes (back) Abdominal, Adenoidectomy, Orthopedic, Tonsillectomy Respiratory: Yes Asthma, COPD Currently Using CPAP: No Currently Using BIPAP: No Cardiac: Yes Heart Murmur, Hypertension Neurological: Yes 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 Disorders: Yes 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 Sexually Transmitted Disease: No HIV/AIDS: No Genitourinary: No Kidney Stones Gastrointestinal: Yes (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; ALCOHOLIC GASTRITIS) Gastroesophageal Reflux, Liver Disease/Jaundice, Gastrointestinal Bleed, Esophageal Varices, Hepatitis, Cirrhosis Musculoskeletal: Yes Arthritis, Fibromyalgia, Chronic Back Pain Endocrine: No HEENT: No Cancer: No Psychosocial: Yes ADD/ADHD, Anxiety Integumentary: No Blood Disorders: No Adverse Reaction/Blood Tranf: No Family Medical History Alcoholism G8 SISTER Cardiovascular disease 19 FATHER Colon cancer G8 BROTHER Diabetes mellitus G8 BROTHER Drug abuse G8 SISTER FH: cancer 19 MOTHER (BRAIN) G8 BROTHER Glaucoma 19 FATHER Hypertension 19 FATHER Myocardial infarction 19 FATHER Psychosocial problem 19 FATHER G8 BROTHER G8 SISTER No Family History of: AIDS Abdominal aortic aneurysm Alzheimer's disease Arthritis Asthma Completed stroke Parkinson's disease Respiratory disorder Seizure disorder Severe allergy Thyroid disease No Pertinent Family Hx Physical Exam Vital Signs Vital Signs - First Documented 09/13/20 10:43 Temp 36.1 Pulse 89 Resp 18 B/P (MAP) 166/95 (118) Pulse Ox 98 O2 Delivery Room Air Capillary Refill : Less Than 3 Seconds Height/Weight/BMI Height: 5'4.00" Weight: 127lbs. 4.0oz. 57.068027tc; 21.00 BMI Method:Stated General Appearance: WD/WN, mild distress HEENT: PERRL/EOMI, other (Very dry oral mucosa) Respiratory: lungs clear, normal breath sounds, no respiratory distress, no accessory muscle use Cardiovascular: regular rate, rhythm Gastrointestinal: soft, guarding (Voluntary guarding), tenderness (Epigastric tenderness) Genital/Rectal: normal rectal exam, heme positive stool Extremities: non-tender, normal inspection, no pedal edema Neurologic/Psychiatric: alert, normal mood/affect, oriented x 3 Skin: normal color, warm/dry Progress/Results/Core Measures Results/Orders Lab Results Laboratory Tests Test 09/13/20 10:50 Range/Units White Blood Count 4.4 4.3-11.0 10^3/uL Red Blood Count 3.87 3.80-5.11 10^6/uL Hemoglobin 9.1 L 11.5-16.0 g/dL Hematocrit 29 L 35-52 % Mean Corpuscular Volume 75 L 80-99 fL Mean Corpuscular Hemoglobin 24 L 25-34 pg Mean Corpuscular Hemoglobin Concent 31 L 32-36 g/dL Red Cell Distribution Width 22.6 H 10.0-14.5 % Platelet Count 134 130-400 10^3/uL Mean Platelet Volume 10.6 9.0-12.2 fL Immature Granulocyte % (Auto) 0 % Neutrophils (%) (Auto) 58 42-75 % Lymphocytes (%) (Auto) 28 12-44 % Monocytes (%) (Auto) 10 0-12 % Eosinophils (%) (Auto) 3 0-10 % Basophils (%) (Auto) 1 0-10 % Neutrophils # (Auto) 2.6 1.8-7.8 10^3/uL Lymphocytes # (Auto) 1.2 1.0-4.0 10^3/uL Monocytes # (Auto) 0.4 0.0-1.0 10^3/uL Eosinophils # (Auto) 0.1 0.0-0.3 10^3/uL Basophils # (Auto) 0.0 0.0-0.1 10^3/uL Immature Granulocyte # (Auto) 0.0 0.0-0.1 10^3/uL Percent Immature Platelet Fraction 10.3 H 0.0-7.6 % Sodium Level 128 L 135-145 MMOL/L Potassium Level 3.3 L 3.6-5.0 MMOL/L Chloride Level 89 L 98-107 MMOL/L Carbon Dioxide Level 23 21-32 MMOL/L Anion Gap 16 H 5-14 MMOL/L Blood Urea Nitrogen 5 L 7-18 MG/DL Creatinine 0.63 0.60-1.30 MG/DL Estimat Glomerular Filtration Rate > 60 BUN/Creatinine Ratio 8 Glucose Level 117 H 70-105 MG/DL Calcium Level 8.5 8.5-10.1 MG/DL Corrected Calcium 9.1 8.5-10.1 MG/DL Total Bilirubin 2.2 H 0.1-1.0 MG/DL Aspartate Amino Transf (AST/SGOT) 67 H 5-34 U/L Alanine Aminotransferase (ALT/SGPT) 26 0-55 U/L Alkaline Phosphatase 59 40-136 U/L Total Protein 8.3 H 6.4-8.2 GM/DL Albumin 3.3 3.2-4.5 GM/DL Lipase 22 8-78 U/L My Orders Orders - LEANN FAUSTIN MD Cbc With Automated Diff (09/13/20 11:23) Comprehensive Metabolic Panel (09/13/20 11:23) Lipase (09/13/20 11:23) Ed Iv/Invasive Line Start (09/13/20 11:23) Ns Iv 1000 Ml (Sodium Chloride 0.9%) (09/13/20 11:30) Morphine Injection (Morphine Injection (09/13/20 11:23) Pantoprazole Injection (Protonix Injecti (09/13/20 12:15) Octreotide Injection (Sandostatin Inje (09/13/20 12:15) Vital Signs/I&O 09/13/20 10:43 Temp 36.1 Pulse 89 Resp 18 B/P (MAP) 166/95 (118) Pulse Ox 98 O2 Delivery Room Air Blood Pressure Mean: 118 Progress Progress Note : Time: 12:28 Progress Note Patient seen and examined, the 55-year-old female with a history of esophageal varices related to previous alcohol abuse. Evaluation today includes a physical exam, CBC, Chem-12, lipase level. Patient is treated in the emergency department with 2 and 4 mg of morphine as well as 2 L of IV fluids. She had 4 mg of Zofran per EMS. Patient is fairly comfortable after these medications. She is also given 80 of Protonix and 50 mcg of octreotide. Patient's hemoglobin is 9 which is right around her baseline as she is anywhere from 8-10. She does state that she had several episodes of bloody emesis over the weekend. I strongly encourage the patient to stay and be transferred to [facility] as she has had previous care for her esophageal varices there. I explained to the patient that esophageal varices can bleed suddenly and severely and that she needed to be in a facility that can handle her varices. The patient insists that she wants to be discharged. She is feeling a little bit better. She does not want to be admitted. Her vital signs are stable. She has not vomited any blood here in the emergency department. She was trace heme positive on digital rectal exam. I strongly encouraged her to stay but she does not have any interest in being admitted to the hospital or transferred to [facility] at this time. Therefore after her Protonix and octreotide are given the patient will be discharged home. She is strongly encouraged to abstain from alcohol. She is advised to follow a bland, soft diet. She verbalized understanding. All questions are sought and answered. Patient is stable for discharge. Departure Impression Primary Impression: GI bleed Qualified Codes: K92.2 - Gastrointestinal hemorrhage, unspecified Additional Impression: History of esophageal varices Disposition: HOME, SELF-CARE Condition: Stable Departure-Patient Inst. Decision time for Depature: 12:31 Referrals: RINKU MANDEL DO (PCP/Family) Primary Care Physician Patient Instructions: Gastrointestinal Bleeding (DC) Add. Discharge Instructions: Please follow a bland and soft diet. Call Dr. Mandel's office and your GI specialist for a follow-up appointment. Take the Zofran every 8 hours as needed for nausea. I have given you a small prescription of hydrocodone to take as needed for pain. Continue to take your pantoprazole for reducing acid in your stomach. If you have any vomiting of blood again you need to come directly back to the emergency room for further evaluation and management. Scripts Hydrocodone/Acetaminophen (Hydrocodone-Acetamin 5-325 mg) 1 Each Tablet 1 TAB PO Q6H PRN for PAIN-MODERATE (5-7), #10 TAB Prov: LEANN FAUSTIN MD 09/13/20 Ondansetron (Ondansetron Odt) 4 Mg Tab.rapdis 4 MG PO Q8H PRN for NAUSEA/VOMITING, #20 TAB 0 Refills Prov: LEANN FAUSTIN MD 09/13/20 LEANN FAUSTIN MD September 13, 2020 11:39
[2020-09-13 11:41] LABS: BILIRUBIN,TOTAL 2.2 MG/DL (0.1-1.0); CARBON DIOXIDE 23 MMOL/L (21-32)
[2020-09-13 11:43] LABS: ALKALINE PHOSPHATASE 59 U/L (40-136); CREATININE SERUM 0.63 MG/DL (0.60-1.30); GFR ESTIMATED > 60
[2020-09-13 11:44] LABS: BUN/CREATININE RATIO 8
[2020-09-13 11:46] LABS: ALANINE AMINOTRANSFERASE 26 U/L (0-55)
[2020-09-13 11:47] LABS: LIPASE 22 U/L (8-78)
[2020-09-13] MEDS ORDERED: PANTOPRAZOLE 40 MG (PROTONIX) VIAL IV ONE (12:15)
[2020-09-13] MEDS ORDERED: OCTREOTIDE INJECTION 50 MCG in NS (IVPB) 50 ML IV ONE (12:15)
[2020-09-13] MEDS ORDERED: ACHD5005 PO (12:33)
[2020-09-13] MEDS ORDERED: ONDA4TAB11 PO (12:33)
[2020-09-13] MEDS ORDERED: ONDANSETRON 4 MG/2 ML (SDV) Z0FRAN IVP ONE (13:00)
[2020-09-13 13:10] VITALS: BP 152/84
== END 2020-09-13 13:15 | disposition home or self-care (01) ==
LOC: EDUNIT# 10:41 → ER 10:42
DX: K92.2 Gastrointestinal hemorrhage, unspecified (principal); I10 Essential (primary) hypertension; J44.9 Chronic obstructive pulmonary disease, unspecified; K21.9 Gastro-esophageal reflux disease without esophagitis; M79.7 Fibromyalgia; G89.29 Other chronic pain; M54.9 Dorsalgia, unspecified; F41.9 Anxiety disorder, unspecified; F17.210 Nicotine dependence, cigarettes, uncomplicated; Z87.19 Personal history of other diseases of the digestive system; Z87.442 Personal history of urinary calculi; Z79.51 Long term (current) use of inhaled steroids; Z79.891 Long term (current) use of opiate analgesic; Z79.899 Other long term (current) drug therapy
CPT/HCPCS: 36415; 80053; 83690; 85025

== ENCOUNTER 2020-10-11 08:51 | Emergency (ER) | payer MEDICARE, MEDICAID ==
[~2020-10-11] VITALS: Ht 120 cm; Wt 52.1 kg
[2020-10-11] MEDS ORDERED: morphine INJ 10 MG/ML 1ML (SYR OR VIAL) IVP STA (09:11)
[2020-10-11] MEDS ORDERED: LACTATED RINGERS 1,000 ML IV ONE (09:15)
[2020-10-11] MEDS ORDERED: ONDANSETRON 4 MG/2 ML (SDV) Z0FRAN IVP ONE (09:15)
--- NOTE | 2020-10-11 09:16 | ED GI ---
General Chief Complaint: Abdominal/GI Problems Stated Complaint: VOMMITTING/ COUGH Source of Information: Patient Exam Limitations: No Limitations History of Present Illness Date Seen by Provider: Oct 11, 2020 Time Seen by Provider: 09:00 Initial Comments Patient presents to the ER by private conveyance from home with chief complaint she is had 1 day of nausea and vomiting that she associates with the upper respiratory congestion and mucus production. She says when she swallows it makes her nauseated. She has been having a little more cough than normal. She smokes about 2 cigarettes/day has a longstanding history of COPD on Advair and albuterol. She does not use oxygen supplementally at baseline. She is not had any fevers or chills. She does not have anything for nausea. She says she was coughing so much she actually hurt her back and would like something for pain. She has a history of hepatitis C with enlarged liver. She also thinks she is having a UTI because she has been having dysuria for the past day and feels dehydrated. She has had her Covid vaccines 2 months ago. She says she does not get out much but does have a caregiver that comes in the home and takes care of her who has been vaccinated. Allergies and Home Medications Allergies Coded Allergies: codeine (Verified Allergy, Unknown, 11/08/19) fentanyl (Verified Adverse Reaction, Unknown, PATIENT REQUEST NOT TO HAVE IT , 11/08/19) Home Medications Albuterol Sulfate 18 Gm Hfa.aer.ad, 2 PUFF IH Q4H PRN for SHORTNESS OF BREATH, (Reported) Albuterol Sulfate 2.5 Mg/3 Ml Vial.neb, 2.5 MG INH Q4H PRN for WHEEZING Prescribed by: CHEPE GILES on 10/11/20 1023 Alprazolam 0.5 Mg Tablet, 0.5 MG PO HS PRN for ANXIETY, (Reported) Amlodipine Besylate 10 Mg Tablet, 10 MG PO DAILY, (Reported) Fluticasone/Salmeterol 1 Each Blst.w.dev, 1 PUFF INH BID, (Reported) Furosemide 20 Mg Tablet, 20 MG PO DAILY, (Reported) Gabapentin 300 Mg Capsule, 600 MG PO HS, (Reported) TAKES 2 (300MG) CAPSULES Hydrocodone/Acetaminophen 1 Each Tablet, 1 TAB PO Q6H PRN for PAIN-MODERATE (5- 7) Prescribed by: LEANN FAUSTIN on 09/13/20 1234 Levothyroxine Sodium 25 Mcg Tablet, 25 MCG PO DAILY, (Reported) Meloxicam 15 Mg Tablet, 15 MG PO DAILY, (Reported) Ondansetron 4 Mg Tab.rapdis, 4 MG PO Q6H PRN for NAUSEA/VOMITING-1ST LINE, (Reported) Ondansetron 4 Mg Tab.rapdis, 4 MG PO Q6H PRN for NAUSEA/VOMITING Prescribed by: PJ TREJO on 08/20/19 1134 Ondansetron 4 Mg Tab.rapdis, 4 MG PO Q8H PRN for NAUSEA/VOMITING Prescribed by: LEANN FAUSTIN on 09/13/20 1233 Ondansetron 4 Mg Tab.rapdis, 4-8 MG PO Q6H PRN for NAUSEA/VOMITING-1ST LINE Prescribed by: CHEPE GILES on 10/11/20 1023 Pantoprazole Sodium 40 Mg Tablet.dr, 40 MG PO DAILY, (Reported) Pantoprazole Sodium 40 Mg Tablet.dr, 40 MG PO BID Prescribed by: MARTIN HOLLINGSWORTH on 03/27/17 1238 Promethazine HCl 25 Mg Tablet, 25 MG PO Q6H PRN for NAUSEA/VOMITING-2ND LINE Prescribed by: CHEPE GILES on 10/11/20 1023 Tramadol HCl 50 Mg Tablet, 50 MG PO BID PRN for PAIN-MILD, (Reported) Patient Home Medication List Home Medication List Reviewed: Yes Review of Systems Review of Systems Constitutional: No chills, No fever; malaise EENTM: No Blurred Vision, No Double Vision Respiratory: Cough, Shortness of Air, Wheezing Cardiovascular: Denies Chest Pain, Denies Lightheadedness Gastrointestinal: See HPI; Denies Abdominal Pain, Denies Constipated, Denies Diarrhea; Nausea, Poor Fluid Intake, Vomiting Genitourinary: See HPI, Burning; Denies Discharge Musculoskeletal: No back pain, No joint pain All Other Systems Reviewed Negative Unless Noted: Yes Past Jhbuago-Aemdcp-Plugxy Hx Patient Social History Alcohol Use: Occasionally Uses Number of Drinks Today: AA Alcohol Beverage of Choice: Beer Drug of Choice: Cannabis Smoking Status: Current Everyday Smoker Type Used: Cigarettes 2nd Hand Smoke Exposure: Yes Recent Hopitalizations: No Immunizations Up To Date Tetanus Booster (TDap): More than 5yrs PED Vaccines UTD: No Date of Pneumonia Vaccine: Jul 22, 2008 Date of Influenza Vaccine: Jan 16, 2019 Seasonal Allergies Seasonal Allergies: Yes Past Medical History Surgeries: Yes (back) Abdominal, Adenoidectomy, Orthopedic, Tonsillectomy Respiratory: Yes Asthma, COPD Currently Using CPAP: No Currently Using BIPAP: No Cardiac: Yes Heart Murmur, Hypertension Neurological: Yes 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 Disorders: Yes 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 Disorders: Denies [employer] History: Menopausal Sexually Transmitted Disease: No HIV/AIDS: No Genitourinary: No Kidney Stones Gastrointestinal: Yes (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; A LCOHOLIC GASTRITIS) Gastroesophageal Reflux, Liver Disease/Jaundice, Gastrointestinal Bleed, Esophageal Varices, Hepatitis, Cirrhosis Musculoskeletal: Yes Arthritis, Fibromyalgia, Chronic Back Pain Endocrine: No HEENT: No Cancer: No Psychosocial: Yes ADD/ADHD, Anxiety Integumentary: No Blood Disorders: No Adverse Reaction/Blood Tranf: No Family Medical History Alcoholism G8 SISTER Cardiovascular disease 19 FATHER Colon cancer G8 BROTHER Diabetes mellitus G8 BROTHER Drug abuse G8 SISTER FH: cancer 19 MOTHER (BRAIN) G8 BROTHER Glaucoma 19 FATHER Hypertension 19 FATHER Myocardial infarction 19 FATHER Psychosocial problem 19 FATHER G8 BROTHER G8 SISTER No Family History of: AIDS Abdominal aortic aneurysm Alzheimer's disease Arthritis Asthma Completed stroke Parkinson's disease Respiratory disorder Seizure disorder Severe allergy Thyroid disease No Pertinent Family Hx Physical Exam Vital Signs Vital Signs - First Documented 10/11/20 09:19 Temp 37.0 Pulse 91 Resp 20 B/P (MAP) 170/88 (115) Pulse Ox 98 O2 Delivery Room Air Capillary Refill : Height/Weight/BMI Height: 5'4.00" Weight: 127lbs. 4.0oz. 57.342145rl; 21.00 BMI Method:Stated General Appearance: mild distress, thin (Chronically ill) HEENT: PERRL/EOMI, pharynx normal Neck: full range of motion, supple, normal inspection Respiratory: no respiratory distress (Oxygen saturation 98% on room air. Nonlabored, 18 breaths/min.), no accessory muscle use, rales (Right worse than left), wheezing (Mild bilateral) Cardiovascular: normal peripheral pulses, regular rate, rhythm Peripheral Pulses: 2+ Radial Pulses (R), 2+ Radial Pulses (L) Gastrointestinal: normal bowel sounds, non tender, soft, no organomegaly Extremities: normal inspection, normal capillary refill Back: normal inspection, no CVA tenderness, no vertebral tenderness, muscle spasm (Right lumbar tenderness to palpation) Neurologic/Psychiatric: alert, normal mood/affect Skin: normal color, warm/dry Progress/Results/Core Measures Results/Orders Lab Results Laboratory Tests Test 10/11/20 09:18 10/11/20 09:30 Range/Units White Blood Count 4.7 4.3-11.0 10^3/uL Red Blood Count 4.28 3.80-5.11 10^6/uL Hemoglobin 9.8 L 11.5-16.0 g/dL Hematocrit 32 L 35-52 % Mean Corpuscular Volume 74 L 80-99 fL Mean Corpuscular Hemoglobin 23 L 25-34 pg Mean Corpuscular Hemoglobin Concent 31 L 32-36 g/dL Red Cell Distribution Width 24.2 H 10.0-14.5 % Platelet Count 236 130-400 10^3/uL Mean Platelet Volume 10.6 9.0-12.2 fL Immature Granulocyte % (Auto) 0 % Neutrophils (%) (Auto) 63 42-75 % Lymphocytes (%) (Auto) 26 12-44 % Monocytes (%) (Auto) 9 0-12 % Eosinophils (%) (Auto) 2 0-10 % Basophils (%) (Auto) 2 0-10 % Neutrophils # (Auto) 2.9 1.8-7.8 10^3/uL Lymphocytes # (Auto) 1.2 1.0-4.0 10^3/uL Monocytes # (Auto) 0.4 0.0-1.0 10^3/uL Eosinophils # (Auto) 0.1 0.0-0.3 10^3/uL Basophils # (Auto) 0.1 0.0-0.1 10^3/uL Immature Granulocyte # (Auto) 0.0 0.0-0.1 10^3/uL Percent Immature Platelet Fraction 8.3 H 0.0-7.6 % Sodium Level 127 L 135-145 MMOL/L Potassium Level 3.7 3.6-5.0 MMOL/L Chloride Level 84 L 98-107 MMOL/L Carbon Dioxide Level 23 21-32 MMOL/L Anion Gap 20 H 5-14 MMOL/L Blood Urea Nitrogen 5 L 7-18 MG/DL Creatinine 0.67 0.60-1.30 MG/DL Estimat Glomerular Filtration Rate > 60 BUN/Creatinine Ratio 7 Glucose Level 109 H 70-105 MG/DL Calcium Level 9.3 8.5-10.1 MG/DL Corrected Calcium 9.5 8.5-10.1 MG/DL Total Bilirubin 1.9 H 0.1-1.0 MG/DL Aspartate Amino Transf (AST/SGOT) 92 H 5-34 U/L Alanine Aminotransferase (ALT/SGPT) 30 0-55 U/L Alkaline Phosphatase 72 40-136 U/L C-Reactive Protein High Sensitivity 0.13 0.00-0.50 MG/DL Total Protein 10.2 H 6.4-8.2 GM/DL Albumin 3.8 3.2-4.5 GM/DL SARS-CoV-2 RNA (RT-PCR) Not Detected Not Detecte Urine Color ORANGE Urine Clarity CLEAR Urine pH 6.0 5-9 Urine Specific Orient 1.025 H 1.016-1.022 Urine Protein TRACE H NEGATIVE Urine Glucose (UA) NEGATIVE NEGATIVE Urine Ketones 3+ H NEGATIVE Urine Nitrite NEGATIVE NEGATIVE Urine Bilirubin NEGATIVE NEGATIVE Urine Urobilinogen 0.2 < = 1.0 MG/DL Urine Leukocyte Esterase NEGATIVE NEGATIVE Urine RBC (Auto) NEGATIVE NEGATIVE Urine RBC RARE /HPF Urine WBC 0-2 /HPF Urine Squamous Epithelial Cells 10-25 H /HPF Urine Crystals PRESENT H /LPF Urine Amorphous Sediment MOD RIKKI URATES H /LPF Urine Bacteria FEW H /HPF Urine Casts NONE /LPF Urine Mucus MODERATE H /LPF Urine Culture Indicated NO My Orders Orders - CHEPE GILES Ondansetron Injection (Zofran Injectio (10/11/20 09:15) Morphine Injection (Morphine Injection (10/11/20 09:11) Cbc With Automated Diff (10/11/20 09:11) Hs C Reactive Protein (10/11/20 09:11) Comprehensive Metabolic Panel (10/11/20 09:11) Chest 1 View, Ap/Pa Only (10/11/20 09:11) Covid 19 Inhouse Test (10/11/20 09:11) Ed Iv/Invasive Line Start (10/11/20 09:11) Lactated Ringers (Lr 1000 Ml Iv Solution (10/11/20 09:15) Ua Culture If Indicated (10/11/20 09:16) Promethazine Injection (Phenergan Injec (10/11/20 10:15) Medications Given in ED Current Medications Medications Dose Ordered Sig/Pino Route Start Time Stop Time Status Last Admin Dose Admin Lactated Ringer's 1,000 ml @ 0 mls/hr Q0M ONCE IV 10/11/20 09:15 10/11/20 09:16 DC 10/11/20 09:30 999 MLS/HR Ondansetron HCl 8 mg ONCE ONCE IVP 10/11/20 09:15 10/11/20 09:16 DC 10/11/20 09:26 8 MG Promethazine HCl 25 mg ONCE ONCE IVP 10/11/20 10:15 10/11/20 10:16 DC 10/11/20 10:12 25 MG Vital Signs/I&O 10/11/20 09:19 Temp 37.0 Pulse 91 Resp 20 B/P (MAP) 170/88 (115) Pulse Ox 98 O2 Delivery Room Air Progress Progress Note #1: Time: 09:20 Progress Note Concern for bronchitis/upper respiratory tract infection versus pneumonia. Viral is possible. She is afebrile and has aseptic vital signs however chest x- ray basic labs Covid swab are in order. She brought her albuterol inhaler so we have encouraged her her to do 2 puffs of that. Zofran. Morphine for her back pain. Progress Note #2: Time: 10:05 Progress Note The patient's hyponatremia and hyperbilirubinemia appear to be chronic. Had to restart her IV to get her the rest of her IV fluids. She does have 3+ ketones in her urine indicating some dehydration. Her nausea went away with Zofran. Her pain was significantly improved by morphine. Her vital signs are still aseptic and she does not require inpatient management. Diagnostic Imaging Diagonstic Imaging: Xray Plain Films/CT/US/NM/MRI: chest Comments NAME: AMANDA TILLMAN [facility] REC#: [id number] PT STATUS: REG ER : 1965 PHYSICIAN: CHEPE GILES MD ADMIT DATE: 10/11/20/ER Draft Date of Exam:10/11/20 CHEST 1 VIEW, AP/PA ONLY INDICATION: cough wheeze COMPARISON: 12/24/2019 FINDINGS: Single frontal view of the chest demonstrates normal heart size and pulmonary vascularity. The lungs are well aerated and clear. No large pleural effusion or pneumothorax is seen. The visualized osseous structures show no acute abnormalities. There is calcified aorta atherosclerosis. IMPRESSION: 1. No acute cardiopulmonary process. Dictated on workstation # [id number] Dict: 10/11/20 1011 Trans: 10/11/20 1012 [id number] Interpreted by: TERESITA SALAZAR MD Electronically signed by: Reviewed: Reviewed by Me Departure Impression Primary Impression: Bronchitis Disposition: HOME, SELF-CARE Condition: Stable Departure-Patient Inst. Decision time for Depature: 10:21 Referrals: RINKU MANDEL DO (PCP/Family) Primary Care Physician Patient Instructions: Acute Bronchitis, Adult (DC) Add. Discharge Instructions: Drink plenty of fluids. Blow your nose and do not swallow your phlegm as this will increase your nausea and vomiting. Zofran 1 tablet under the tongue every 6 hours as necessary for nausea. Phenergan 1 tablet every 6 hours as necessary for breakthrough nausea. Albuterol nebulizer every 6 hours while awake for the next week. Tessalon Perles 1 capsule every 6 hours as necessary for coughing. You may take your albuterol nebulizer every 4 hours if you are having coughing fits, wheezing or shortness of air. Return to the ER promptly if you are having shortness of air or intractable vomiting despite these medications. Follow-up with Dr. Mandel in 1 week for reevaluation. All discharge instructions reviewed with patient and/or family. Voiced understanding. Scripts Benzonatate (Tessalon Perle) 100 Mg Capsule 100 MG PO Q6H PRN for COUGH, #20 CAP 0 Refills Prov: CHEPE GILES 10/11/20 Ondansetron (Ondansetron Odt) 4 Mg Tab.rapdis 4-8 MG PO Q6H PRN for NAUSEA/VOMITING-1ST LINE, #20 TAB 0 Refills Prov: CHEPE GILES 10/11/20 Promethazine HCl (Promethazine Tablet) 25 Mg Tablet 25 MG PO Q6H PRN for NAUSEA/VOMITING-2ND LINE, #20 TAB 0 Refills Prov: CHEPE GILES 10/11/20 Albuterol Sulfate (Albuterol Sulfate) 2.5 Mg/3 Ml Vial.neb 2.5 MG INH Q4H PRN for WHEEZING, #50 EA 1 Refill Prov: CHEPE GILES 10/11/20 Copy Copies To 1: RINKU MANDEL DO CHEPE GILES Oct 11, 2020 09:15
[2020-10-11 09:36] LABS: BASOPHILS # (AUTO) 0.1 10^3/uL (0.0-0.1); BASOPHILS % (AUTO) 2 % (0-10); EOSINOPHILS # (AUTO) 0.1 10^3/uL (0.0-0.3); EOSINOPHILS % (AUTO) 2 % (0-10); HEMATOCRIT 32 % (35-52); HEMOGLOBIN 9.8 g/dL (11.5-16.0); LYMPHOCYTES # (AUTO) 1.2 10^3/uL (1.0-4.0); LYMPHOCYTES % (AUTO) 26 % (12-44); MEAN CORPUSCULAR HEMOGLOBIN 23 pg (25-34); MEAN CORPUSCULAR HGB CONC 31 g/dL (32-36); MEAN CORPUSCULAR VOLUME 74 fL (80-99); MEAN PLATELET VOLUME 10.6 fL (9.0-12.2); MONOCYTES # (AUTO) 0.4 10^3/uL (0.0-1.0); MONOCYTES % (AUTO) 9 % (0-12); NEUTROPHILS # (AUTO) 2.9 10^3/uL (1.8-7.8); NEUTROPHILS % (AUTO) 63 % (42-75); PLATELET COUNT 236 10^3/uL (130-400); WHITE BLOOD COUNT 4.7 10^3/uL (4.3-11.0)
[2020-10-11 09:43] LABS: CLARITY,URINE CLEAR; COLOR,URINE ORANGE; GLUCOSE, URINE (UA) NEGATIVE (NEGATIVE); KETONES,URINE 3+ (NEGATIVE); LEUKOCYTE ESTERASE ,URINE NEGATIVE (NEGATIVE); NITRITE,URINE NEGATIVE (NEGATIVE); PROTEIN,URINE TRACE (NEGATIVE)
[2020-10-11 09:44] LABS: ALBUMIN 3.8 GM/DL (3.2-4.5); CHLORIDE 84 MMOL/L (98-107); POTASSIUM 3.7 MMOL/L (3.6-5.0); SODIUM 127 MMOL/L (135-145)
[2020-10-11 09:46] LABS: CALCIUM 9.3 MG/DL (8.5-10.1)
[2020-10-11 09:47] LABS: GLUCOSE 109 MG/DL (70-105); TOTAL PROTEIN 10.2 GM/DL (6.4-8.2)
[2020-10-11 09:48] LABS: CARBON DIOXIDE 23 MMOL/L (21-32)
[2020-10-11 09:49] LABS: BILIRUBIN,TOTAL 1.9 MG/DL (0.1-1.0)
[2020-10-11 09:50] LABS: ALKALINE PHOSPHATASE 72 U/L (40-136)
[2020-10-11 09:50] LABS: BACTERIA,URINE FEW /HPF; BILIRUBIN,URINE NEGATIVE (NEGATIVE); RBC,URINE RARE /HPF; WBC,URINE 0-2 /HPF
[2020-10-11 09:51] LABS: CREATININE SERUM 0.67 MG/DL (0.60-1.30); GFR ESTIMATED > 60
[2020-10-11 09:51] LABS: AMORPHOUS SEDIMENT,UR MOD AMOR URATES /LPF
[2020-10-11 09:52] LABS: BUN/CREATININE RATIO 7
[2020-10-11 09:53] LABS: ALANINE AMINOTRANSFERASE 30 U/L (0-55)
--- NOTE | 2020-10-11 10:13 | Diagnostic Imaging Report ---
INDICATION: cough wheeze COMPARISON: 12/24/2019 FINDINGS: Single frontal view of the chest demonstrates normal heart size and pulmonary vascularity. The lungs are well aerated and clear. No large pleural effusion or pneumothorax is seen. The visualized osseous structures show no acute abnormalities. There is calcified aorta atherosclerosis. IMPRESSION: 1. No acute cardiopulmonary process. Dictated by: Dictated on workstation # [id number]
[2020-10-11] MEDS ORDERED: PROMETHAZINE INJ 25 MG/ML (PHENERGAN) AMP IVP ONE (10:15)
[2020-10-11] MEDS ORDERED: PROM25TA14 PO (10:23)
[2020-10-11] MEDS ORDERED: ALBU2.5V4 INH (10:23)
[2020-10-11] MEDS ORDERED: ONDA4TAB11 PO (10:23)
[2020-10-11] MEDS ORDERED: BENZ-13 PO (10:38)
[2020-10-11 11:11] VITALS: BP 173/81
== END 2020-10-11 11:30 | disposition home or self-care (01) ==
LOC: EDUNIT# 08:51 → ER 08:53
DX: J40 Bronchitis, not specified as acute or chronic (principal); J44.9 Chronic obstructive pulmonary disease, unspecified; I10 Essential (primary) hypertension; G89.29 Other chronic pain; M54.9 Dorsalgia, unspecified; F41.9 Anxiety disorder, unspecified; F17.210 Nicotine dependence, cigarettes, uncomplicated; K21.9 Gastro-esophageal reflux disease without esophagitis; Z20.822 Contact with and (suspected) exposure to COVID-19; Z79.891 Long term (current) use of opiate analgesic; Z79.899 Other long term (current) drug therapy
CPT/HCPCS: 36415; 71045; 80053; 81000; 85025; 86141; 87636

== ENCOUNTER 2020-10-29 03:25 | Emergency (ER) | payer MEDICARE, MEDICAID ==
[~2020-10-29 03:25] MED LIST changes: +ALBU2.5V4 INH; +BENZ-13 PO
[2020-10-29] MEDS ORDERED: morphine INJ 10 MG/ML 1ML (SYR OR VIAL) IVP STA ×2 (03:31→04:30)
--- NOTE | 2020-10-29 03:38 | ED GI ---
General Stated Complaint: VOMITING BLOOD Source of Information: Patient Exam Limitations: No Limitations (CHEPE TOWNSEND) History of Present Illness Date Seen by Provider: Oct 29, 2020 Time Seen by Provider: 03:23 Initial Comments Patient to the ER by EMS from home with chief complaint she woke up with a blood clot in her throat and had some nausea. She vomited some bloody emesis. She has a history of esophageal varices related to cirrhosis. She still drinks and had 2 alcoholic drinks earlier today. She is a smoker and says she has not had any marijuana for couple months. She is seen Dr. Godoy at [place] for esophageal varices in the past. (CHEPE TOWNSEND) Allergies and Home Medications Allergies Coded Allergies: codeine (Verified Allergy, Unknown, 11/08/19) fentanyl (Verified Adverse Reaction, Unknown, PATIENT REQUEST NOT TO HAVE IT , 11/08/19) Home Medications Albuterol Sulfate 18 Gm Hfa.aer.ad, 2 PUFF IH Q4H PRN for SHORTNESS OF BREATH, (Reported) Albuterol Sulfate 2.5 Mg/3 Ml Vial.neb, 2.5 MG INH Q4H PRN for WHEEZING Prescribed by: CHEPE TOWNSEND on 10/11/20 1023 Alprazolam 0.5 Mg Tablet, 0.5 MG PO HS PRN for ANXIETY, (Reported) Amlodipine Besylate 10 Mg Tablet, 10 MG PO DAILY, (Reported) Benzonatate 100 Mg Capsule, 100 MG PO Q6H PRN for COUGH Prescribed by: CHEPE TOWNSEND on 10/11/20 1038 Fluticasone/Salmeterol 1 Each Blst.w.dev, 1 PUFF INH BID, (Reported) Furosemide 20 Mg Tablet, 20 MG PO DAILY, (Reported) Gabapentin 300 Mg Capsule, 600 MG PO HS, (Reported) TAKES 2 (300MG) CAPSULES Hydrocodone/Acetaminophen 1 Each Tablet, 1 TAB PO Q6H PRN for PAIN-MODERATE (5- 7) Prescribed by: LEANN FAUSTIN on 09/13/20 1234 Levothyroxine Sodium 25 Mcg Tablet, 25 MCG PO DAILY, (Reported) Meloxicam 15 Mg Tablet, 15 MG PO DAILY, (Reported) Ondansetron 4 Mg Tab.rapdis, 4 MG PO Q6H PRN for NAUSEA/VOMITING-1ST LINE, (Reported) Ondansetron 4 Mg Tab.rapdis, 4 MG PO Q6H PRN for NAUSEA/VOMITING Prescribed by: PJ TREJO on 08/20/19 1134 Ondansetron 4 Mg Tab.rapdis, 4 MG PO Q8H PRN for NAUSEA/VOMITING Prescribed by: LEANN FAUSTIN on 09/13/20 1233 Ondansetron 4 Mg Tab.rapdis, 4-8 MG PO Q6H PRN for NAUSEA/VOMITING-1ST LINE Prescribed by: CHEPE TOWNSEND on 10/11/20 1023 Pantoprazole Sodium 40 Mg Tablet.dr, 40 MG PO DAILY, (Reported) Pantoprazole Sodium 40 Mg Tablet.dr, 40 MG PO BID Prescribed by: MARTIN HOLLINGSWORTH on 03/27/17 1238 Promethazine HCl 25 Mg Tablet, 25 MG PO Q6H PRN for NAUSEA/VOMITING-2ND LINE Prescribed by: CHEPE TOWNSEND on 10/11/20 1023 Tramadol HCl 50 Mg Tablet, 50 MG PO BID PRN for PAIN-MILD, (Reported) Patient Home Medication List Home Medication List Reviewed: Yes (CHEPE TOWNSEND) Review of Systems Review of Systems Constitutional: No chills, No malaise EENTM: No Blurred Vision, No Double Vision Respiratory: Denies Cough, Denies Shortness of Air Cardiovascular: Denies Chest Pain, Denies Lightheadedness Gastrointestinal: See HPI; Denies Abdominal Pain, Denies Constipated, Denies Diarrhea; Nausea, Vomiting Genitourinary: Denies Burning, Denies Discharge Musculoskeletal: No back pain, No joint pain (CHEPE TOWNSEND) All Other Systems Reviewed Negative Unless Noted: Yes (CHEPE TOWNSEND) Past Faixxnr-Xovfmz-Idcxso Hx Patient Social History Tobacco Use?: Yes Tobacco type used: Cigarettes Substance use?: Yes Substance type: Marijuana Alcohol Use?: Yes Alcohol type: Hard Liquor (CHEPE TOWNSEND) Immunizations Up To Date Tetanus Booster (TDap): More than 5yrs PED Vaccines UTD: No (CHEPE TOWNSEND) Seasonal Allergies Seasonal Allergies: Yes (CHEPE TOWNSEND) Past Medical History Surgeries: Yes (back) Abdominal, Adenoidectomy, Orthopedic, Tonsillectomy Respiratory: Yes Asthma, COPD Currently Using CPAP: No Currently Using BIPAP: No Cardiac: Yes Heart Murmur, Hypertension Neurological: Yes 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 Disorders: Yes 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 Disorders: Denies [employer] History: Menopausal Sexually Transmitted Disease: No HIV/AIDS: No Genitourinary: No Kidney Stones Gastrointestinal: Yes (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; ALCOHOLIC GASTRITIS) Gastroesophageal Reflux, Liver Disease/Jaundice, Gastrointestinal Bleed, Esophageal Varices, Hepatitis, Cirrhosis Musculoskeletal: Yes Arthritis, Fibromyalgia, Chronic Back Pain Endocrine: No HEENT: No Cancer: No Psychosocial: Yes ADD/ADHD, Anxiety Integumentary: No Blood Disorders: No Adverse Reaction/Blood Tranf: No (CHEPE TOWNSEND) Family Medical History Alcoholism G8 SISTER Cardiovascular disease 19 FATHER Colon cancer G8 BROTHER Diabetes mellitus G8 BROTHER Drug abuse G8 SISTER FH: cancer 19 MOTHER (BRAIN) G8 BROTHER Glaucoma 19 FATHER Hypertension 19 FATHER Myocardial infarction 19 FATHER Psychosocial problem 19 FATHER G8 BROTHER G8 SISTER No Family History of: AIDS Abdominal aortic aneurysm Alzheimer's disease Arthritis Asthma Completed stroke Parkinson's disease Respiratory disorder Seizure disorder Severe allergy Thyroid disease No Pertinent Family Hx (CHEPE TOWNSEND) Physical Exam Vital Signs Vital Signs - First Documented 10/29/20 10/29/20 03:27 06:32 Temp 36.9 Pulse 84 Resp 16 B/P (MAP) 152/87 (108) Pulse Ox 92 O2 Delivery Room Air (AROLDO MERCADO MD) Vital Signs Capillary Refill : (CHEPE TOWNSEND) Height/Weight/BMI Height: 5'4.00" Weight: 127lbs. 4.0oz. 57.396214sg; 36.00 BMI Method:Stated General Appearance: mild distress, thin HEENT: PERRL/EOMI, pharynx normal Neck: full range of motion, normal inspection Respiratory: lungs clear, normal breath sounds, no respiratory distress, no accessory muscle use Cardiovascular: normal peripheral pulses, regular rate, rhythm Peripheral Pulses: 2+ Radial Pulses (R), 2+ Radial Pulses (L) Gastrointestinal: non tender, soft, distended Extremities: normal range of motion, normal capillary refill Neurologic/Psychiatric: alert, normal mood/affect, oriented x 3 Skin: normal color, warm/dry (CHEPE TOWNSEND) Progress/Results/Core Measures Results/Orders Lab Results Laboratory Tests Test 10/29/20 03:30 Range/Units White Blood Count 5.4 4.3-11.0 10^3/uL Red Blood Count 3.55 L 3.80-5.11 10^6/uL Hemoglobin 7.9 L 11.5-16.0 g/dL Hematocrit 26 L 35-52 % Mean Corpuscular Volume 73 L 80-99 fL Mean Corpuscular Hemoglobin 22 L 25-34 pg Mean Corpuscular Hemoglobin Concent 30 L 32-36 g/dL Red Cell Distribution Width 23.0 H 10.0-14.5 % Platelet Count 179 130-400 10^3/uL Mean Platelet Volume 10.0 9.0-12.2 fL Immature Granulocyte % (Auto) 0 % Neutrophils (%) (Auto) 60 42-75 % Lymphocytes (%) (Auto) 34 12-44 % Monocytes (%) (Auto) 4 0-12 % Eosinophils (%) (Auto) 1 0-10 % Basophils (%) (Auto) 1 0-10 % Neutrophils # (Auto) 3.2 1.8-7.8 10^3/uL Lymphocytes # (Auto) 1.8 1.0-4.0 10^3/uL Monocytes # (Auto) 0.2 0.0-1.0 10^3/uL Eosinophils # (Auto) 0.1 0.0-0.3 10^3/uL Basophils # (Auto) 0.1 0.0-0.1 10^3/uL Immature Granulocyte # (Auto) 0.0 0.0-0.1 10^3/uL Prothrombin Time 15.6 H 12.2-14.7 SEC INR Comment 1.2 0.8-1.4 Activated Partial Thromboplast Time 38 H 24-35 SEC Sodium Level 132 L 135-145 MMOL/L Potassium Level 4.1 3.6-5.0 MMOL/L Chloride Level 91 L 98-107 MMOL/L Carbon Dioxide Level 26 21-32 MMOL/L Anion Gap 15 H 5-14 MMOL/L Blood Urea Nitrogen 3 L 7-18 MG/DL Creatinine 0.54 L 0.60-1.30 MG/DL Estimat Glomerular Filtration Rate > 60 BUN/Creatinine Ratio 6 Glucose Level 98 70-105 MG/DL Calcium Level 8.6 8.5-10.1 MG/DL Corrected Calcium 9.3 8.5-10.1 MG/DL Total Bilirubin 1.1 H 0.1-1.0 MG/DL Aspartate Amino Transf (AST/SGOT) 95 H 5-34 U/L Alanine Aminotransferase (ALT/SGPT) 31 0-55 U/L Alkaline Phosphatase 133 40-136 U/L Total Protein 8.4 H 6.4-8.2 GM/DL Albumin 3.1 L 3.2-4.5 GM/DL Serum Alcohol 75 H <10 MG/DL (AROLDO MERCADO MD) My Orders Orders - AROLDO MERCADO MD Morphine Injection (Morphine Injection (10/29/20 06:30) Morphine Injection (Morphine Injection (10/29/20 07:30) (AROLDO MERCADO MD) Medications Given in ED Current Medications Medications Dose Ordered Sig/Pino Route Start Time Stop Time Status Last Admin Dose Admin Ceftriaxone Sodium 1000 mg/ Sterile Water 10 ml @ 200 mls/hr ONCE ONCE IV 10/29/20 04:30 10/29/20 04:32 DC 10/29/20 04:53 200 MLS/HR Morphine Sulfate 4 mg ONCE ONCE IVP 10/29/20 06:30 10/29/20 06:31 DC 10/29/20 06:32 4 MG Morphine Sulfate 4 mg ONCE ONCE IVP 10/29/20 07:30 10/29/20 07:31 DC 10/29/20 07:32 4 MG Octreotide Acetate 50 mcg/ Sodium Chloride 51 ml @ 204 mls/hr ONCE ONCE IV 10/29/20 04:30 10/29/20 04:44 DC 10/29/20 05:05 204 MLS/HR Ondansetron HCl 8 mg ONCE ONCE IVP 10/29/20 03:45 10/29/20 03:46 DC 10/29/20 03:39 8 MG Pantoprazole 40 mg ONCE ONCE IV 10/29/20 03:45 10/29/20 03:47 DC 10/29/20 03:43 40 MG Sodium Chloride 500 ml @ 0 mls/hr Q0M ONCE IV 10/29/20 03:45 10/29/20 03:46 DC 10/29/20 03:39 999 MLS/HR (AROLDO MERCADO MD) Vital Signs/I&O 7/9/10/29/20 10/29/20 10/29/20 03:27 06:17 06:32 07:03 Temp 36.9 36.2 36.0 35.6 Pulse 84 78 75 76 Resp 16 B/P (MAP) 152/87 (108) 102/70 97/63 102/60 Pulse Ox 92 O2 Delivery Room Air Room Air (AROLDO MERCADO MD) Progress Progress Note #1: Time: 03:38 Progress Note Zofran for her nausea, pantoprazole and 2 of morphine for her chronic back pain. She says it was aggravated by her retching. Plan to send her to GI at [place] where she is familiar with in the past for potential EGD. Progress Note #2: Time: 03:54 Progress Note Patient symptoms are significantly improved after the Zofran and morphine. She does not have a history of coronary disease or stents. See and [facility] in [place] are on diversion. [facility] in [place] is on diversion. [facility] was called. Progress Note #3: Time: 05:19 Progress Note Patient just vomited 300cc sanguinous appearing emesis. EMS informs as they will not be able to provide a ride until 8:00 so we are going to call for a helicopter. (CHEPE TOWNSEND) Progress Note : Time: 06:26 Progress Note I assumed care of the patient at [address] Townsend pending transfer and blood administration. Patient now is having abdominal and esophageal pain. We will repeat dose of morphine 4 mg IV. Blood is available currently and administration has been started. We are still pending transfer. Monitor patient. 0735: Flight team here for transfer. Patient did receive 1 unit of blood and is starting on second. She did receive additional dose of morphine 4 mg IV for pain. Care transferred to flight crew. (AROLDO MERCADO MD) Consults : Consulting Physician: MARIANO WINSTON DO Consults Notes General surgery was consulted and they have declined because they do not do esophageal varices banding. (CHEPE TOWNSEND) Transfer of Care Time: 06:00 Care transferred to: Dr. 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 They are reviewing the case and will call us back. 0430: Patient remained stable. She has been accepted by Dr. Mock, pulmonology/critical care at . He recommends a gram Rocephin, octreotide and accepts the patient in transfer. Sepideh from triage will call us back with a be d. Transfer Facility: [facility] Method of Transfer: EMS (CHEPE TOWNSEND) Transfer Time: 07:35 (AROLDO MERCADO MD) Departure-Patient Inst. Referrals: RINKU MANDEL DO (PCP/Family) Primary Care Physician CHEPE TOWNSEND Oct 29, 2020 03:38 AROLDO MERCADO MD Oct 29, 2020 06:28
[2020-10-29 03:42] LABS: BASOPHILS # (AUTO) 0.1 10^3/uL (0.0-0.1); BASOPHILS % (AUTO) 1 % (0-10); EOSINOPHILS # (AUTO) 0.1 10^3/uL (0.0-0.3); EOSINOPHILS % (AUTO) 1 % (0-10); HEMATOCRIT 26 % (35-52); HEMOGLOBIN 7.9 g/dL (11.5-16.0); LYMPHOCYTES # (AUTO) 1.8 10^3/uL (1.0-4.0); LYMPHOCYTES % (AUTO) 34 % (12-44); MEAN CORPUSCULAR HEMOGLOBIN 22 pg (25-34); MEAN CORPUSCULAR HGB CONC 30 g/dL (32-36); MEAN CORPUSCULAR VOLUME 73 fL (80-99); MONOCYTES # (AUTO) 0.2 10^3/uL (0.0-1.0); MONOCYTES % (AUTO) 4 % (0-12); NEUTROPHILS # (AUTO) 3.2 10^3/uL (1.8-7.8); NEUTROPHILS % (AUTO) 60 % (42-75); PLATELET COUNT 179 10^3/uL (130-400); WHITE BLOOD COUNT 5.4 10^3/uL (4.3-11.0)
[2020-10-29] MEDS ORDERED: NS IV 500 ML 500 ML IV ONE (03:45)
[2020-10-29] MEDS ORDERED: ONDANSETRON 4 MG/2 ML (SDV) Z0FRAN IVP ONE (03:45)
[2020-10-29] MEDS ORDERED: PANTOPRAZOLE 40 MG (PROTONIX) VIAL IV ONE (03:45)
[2020-10-29 03:56] LABS: ALBUMIN 3.1 GM/DL (3.2-4.5); CHLORIDE 91 MMOL/L (98-107); POTASSIUM 4.1 MMOL/L (3.6-5.0); SODIUM 132 MMOL/L (135-145)
[2020-10-29 03:57] LABS: CALCIUM 8.6 MG/DL (8.5-10.1)
[2020-10-29 03:59] LABS: GLUCOSE 98 MG/DL (70-105); TOTAL PROTEIN 8.4 GM/DL (6.4-8.2)
[2020-10-29 04:00] LABS: BILIRUBIN,TOTAL 1.1 MG/DL (0.1-1.0); CARBON DIOXIDE 26 MMOL/L (21-32)
[2020-10-29 04:02] LABS: ALKALINE PHOSPHATASE 133 U/L (40-136); CREATININE SERUM 0.54 MG/DL (0.60-1.30); GFR ESTIMATED > 60
[2020-10-29 04:03] LABS: BUN/CREATININE RATIO 6
[2020-10-29 04:05] LABS: ALANINE AMINOTRANSFERASE 31 U/L (0-55)
[2020-10-29] MEDS ORDERED: LACTATED RINGERS 1,000 ML IV SCH (04:15)
[2020-10-29] MEDS ORDERED: cefTRIAXone 1,000 MG in WATER (STERILE) FOR INJECTION 10 ML IV ONE (04:30)
[2020-10-29] MEDS ORDERED: OCTREOTIDE INJECTION 50 MCG in NS (IVPB) 50 ML IV ONE (04:30)
[2020-10-29] MEDS ORDERED: OCTREOTIDE INJECTION 500 MCG in NS (IVPB) 99 ML IV SCH (04:30)
[2020-10-29 04:43] LABS: INR 1.2 (0.8-1.4); PROTHROMBIN TIME PATIENT 15.6 SEC (12.2-14.7)
[2020-10-29] MEDS ORDERED: NS IV 500 ML 500 ML IV SCH (04:45)
[2020-10-29] MEDS ORDERED: NS (IVPB) 100 ML ONE (04:58)
[2020-10-29 06:17] VITALS: BP 102/70
[2020-10-29] MEDS ORDERED: morphine INJ 10 MG/ML 1ML (SYR OR VIAL) IVP ONE (06:30)
[2020-10-29 06:32] VITALS: BP 97/63
[2020-10-29 07:03] VITALS: BP 102/60
[2020-10-29] MEDS ORDERED: morphine INJ 10 MG/ML 1ML (SYR OR VIAL) ONE (07:25)
[2020-10-29] MEDS ORDERED: morphine INJ 4 MG/ML 1 ML (VIAL/SYRINGE) IVP ONE (07:30)
[2020-10-29 07:50] VITALS: BP 117/80
== END 2020-10-29 07:50 | disposition short-term general hospital (02) ==
LOC: ER 03:25
DX: K70.30 Alcoholic cirrhosis of liver without ascites (principal); I85.11 Secondary esophageal varices with bleeding; B19.20 Unspecified viral hepatitis C without hepatic coma; I10 Essential (primary) hypertension; J44.9 Chronic obstructive pulmonary disease, unspecified; K21.9 Gastro-esophageal reflux disease without esophagitis; M79.7 Fibromyalgia; G89.29 Other chronic pain; M54.9 Dorsalgia, unspecified; F41.9 Anxiety disorder, unspecified; F17.210 Nicotine dependence, cigarettes, uncomplicated; Z91.19 Patient's noncompliance with other medical treatment and regimen; Z88.5 Allergy status to narcotic agent; Z79.51 Long term (current) use of inhaled steroids; Z79.1 Long term (current) use of non-steroidal anti-inflammatories (NSAID); Z79.891 Long term (current) use of opiate analgesic; Z79.899 Other long term (current) drug therapy
CPT/HCPCS: 80053; 85025; 85610; 85730; 86850; 86900; 86901; 86920; 99285; G0480; P9016; 36415; 80320

== ENCOUNTER 2020-11-30 06:08 | Inpatient (IN) | payer MEDICARE, MEDICAID ==
[~2020-11-30] VITALS: Ht 167 cm; Wt 53.0 kg
[2020-11-30] MEDS ORDERED: ONDANSETRON 4 MG/2 ML (SDV) Z0FRAN IVP ONE (06:30)
[2020-11-30 06:39] LABS: BASOPHILS # (AUTO) 0.1 10^3/uL (0.0-0.1); BASOPHILS % (AUTO) 1 % (0-10); EOSINOPHILS # (AUTO) 0.2 10^3/uL (0.0-0.3); EOSINOPHILS % (AUTO) 2 % (0-10); HEMATOCRIT 36 % (35-52); HEMOGLOBIN 11.8 g/dL (11.5-16.0); LYMPHOCYTES # (AUTO) 1.6 10^3/uL (1.0-4.0); LYMPHOCYTES % (AUTO) 23 % (12-44); MEAN CORPUSCULAR HEMOGLOBIN 27 pg (25-34); MEAN CORPUSCULAR HGB CONC 33 g/dL (32-36); MEAN CORPUSCULAR VOLUME 83 fL (80-99); MEAN PLATELET VOLUME 11.5 fL (9.0-12.2); MONOCYTES # (AUTO) 0.5 10^3/uL (0.0-1.0); MONOCYTES % (AUTO) 8 % (0-12); NEUTROPHILS # (AUTO) 4.6 10^3/uL (1.8-7.8); NEUTROPHILS % (AUTO) 67 % (42-75); PLATELET COUNT 249 10^3/uL (130-400); WHITE BLOOD COUNT 6.9 10^3/uL (4.3-11.0)
[2020-11-30 06:56] LABS: ALBUMIN 2.6 GM/DL (3.2-4.5)
[2020-11-30 06:57] LABS: CALCIUM 7.7 MG/DL (8.5-10.1)
[2020-11-30 06:59] LABS: TOTAL PROTEIN 7.5 GM/DL (6.4-8.2)
[2020-11-30 07:00] LABS: BILIRUBIN,TOTAL 1.2 MG/DL (0.1-1.0)
[2020-11-30 07:02] LABS: CREATININE SERUM 0.59 MG/DL (0.60-1.30); ERYTHROCYTE SEDIMENTATION RATE 57 MM/HR (0-30)
[2020-11-30 07:05] LABS: MAGNESIUM 1.6 MG/DL (1.6-2.4)
[2020-11-30 07:12] LABS: POTASSIUM 2.2 MMOL/L (3.6-5.0)
[2020-11-30] MEDS ORDERED: POTASSIUM CL 10MEQ/50ML IVPB 50 ML IV ONE (07:15)
[2020-11-30] MEDS ORDERED: morphine INJ 10 MG/ML 1ML (SYR OR VIAL) IVP STA ×2 (07:27→09:44)
[2020-11-30] MEDS ORDERED: NS 100 ML (IVPB) BAG IV ONE (07:30)
[2020-11-30] MEDS ORDERED: IOHEXOL 350 MG/ML 100 ML (OMNIPAQUE 350) VIAL IV ONE (07:30)
[2020-11-30] MEDS ORDERED: HOLD METFORMIN - RECEIVED CONTRAST 20 ML VIAL IV SCH (07:30)
[2020-11-30 07:34] LABS: INR 1.3 (0.8-1.4); PROTHROMBIN TIME PATIENT 16.4 SEC (12.2-14.7)
--- NOTE | 2020-11-30 07:58 | ED Abdominal Pain ---
General Chief Complaint: Abdominal/GI Problems Stated Complaint: ABD PAIN Nursing Triage Note: BROUGHT IN BY [facility] FOR C/O ABDOMINAL PAIN/DISTENSION, WEAKNESS X2 DAYS. Source of Information: Patient, EMS, Old Records Exam Limitations: No Limitations History of Present Illness Date Seen by Provider: Nov 30, 2020 Time Seen by Provider: 06:09 Initial Comments This 55-year-old woman with known encephalitis and liver failure presents to the emergency room with complaints of abdominal distention, abdominal pain, and nausea for several days. She is afebrile. She is alert but mentation, speech, and movements are sluggish. Vital signs are stable. She has history of esophageal varices with recent banding at [facility]. She has not been vomiting with her nausea. Allergies and Home Medications Allergies Coded Allergies: codeine (Verified Allergy, Unknown, 11/08/19) fentanyl (Verified Adverse Reaction, Unknown, PATIENT REQUEST NOT TO HAVE IT , 11/08/19) Home Medications Albuterol Sulfate 18 Gm Hfa.aer.ad, 2 PUFF IH Q4H PRN for SHORTNESS OF BREATH, (Reported) Albuterol Sulfate 2.5 Mg/3 Ml Vial.neb, 2.5 MG INH Q4H PRN for WHEEZING Prescribed by: CHEPE GILES on 10/11/20 1023 Alprazolam 0.5 Mg Tablet, 0.5 MG PO HS PRN for ANXIETY, (Reported) Amlodipine Besylate 10 Mg Tablet, 10 MG PO DAILY, (Reported) Benzonatate 100 Mg Capsule, 100 MG PO Q6H PRN for COUGH Prescribed by: CHEPE GILES on 10/11/20 1038 Fluticasone/Salmeterol 1 Each Blst.w.dev, 1 PUFF INH BID, (Reported) Furosemide 20 Mg Tablet, 20 MG PO DAILY, (Reported) Gabapentin 300 Mg Capsule, 600 MG PO HS, (Reported) TAKES 2 (300MG) CAPSULES Hydrocodone/Acetaminophen 1 Each Tablet, 1 TAB PO Q6H PRN for PAIN-MODERATE (5- 7) Prescribed by: LEANN FAUSTIN on 09/13/20 1234 Levothyroxine Sodium 25 Mcg Tablet, 25 MCG PO DAILY, (Reported) Meloxicam 15 Mg Tablet, 15 MG PO DAILY, (Reported) Ondansetron 4 Mg Tab.rapdis, 4 MG PO Q6H PRN for NAUSEA/VOMITING-1ST LINE, (Reported) Ondansetron 4 Mg Tab.rapdis, 4 MG PO Q6H PRN for NAUSEA/VOMITING Prescribed by: PJ TREJO on 08/20/19 1134 Ondansetron 4 Mg Tab.rapdis, 4 MG PO Q8H PRN for NAUSEA/VOMITING Prescribed by: LEANN FAUSTIN on 09/13/20 1233 Ondansetron 4 Mg Tab.rapdis, 4-8 MG PO Q6H PRN for NAUSEA/VOMITING-1ST LINE Prescribed by: CHEPE GILES on 10/11/20 1023 Pantoprazole Sodium 40 Mg Tablet.dr, 40 MG PO DAILY, (Reported) Pantoprazole Sodium 40 Mg Tablet.dr, 40 MG PO BID Prescribed by: MARTIN HOLLINGSWORTH on 03/27/17 1238 Promethazine HCl 25 Mg Tablet, 25 MG PO Q6H PRN for NAUSEA/VOMITING-2ND LINE Prescribed by: CHEPE GILES on 10/11/20 1023 Tramadol HCl 50 Mg Tablet, 50 MG PO BID PRN for PAIN-MILD, (Reported) Patient Home Medication List Home Medication List Reviewed: Yes Review of Systems Review of Systems Constitutional: see HPI EENTM: No Symptoms Reported Respiratory: No Symptoms Reported Cardiovascular: No Symptoms Reported Gastrointestinal: See HPI Genitourinary: No Symptoms Reported Musculoskeletal: no symptoms reported Skin: no symptoms reported Psychiatric/Neurological: See HPI Endocrine: No Symptoms Reported Hematologic/Lymphatic: No Symptoms Reported Past Whawaqn-Xeefhm-Uqagtb Hx Patient Social History Tobacco Use?: Yes Tobacco type used: Cigarettes Smoking Status: Current Everyday Smoker Substance use?: Yes Substance type: Marijuana Alcohol Use?: Yes Alcohol Frequency: Daily Pt feels they are or have been: No Immunizations Up To Date Tetanus Booster (TDap): More than 5yrs PED Vaccines UTD: No Second COVID19 Vaccination Everardo: 10/11 COVID19 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: [employer] Seasonal Allergies Seasonal Allergies: Yes Past Medical History Surgery/Hospitalization HX: ESOPHAGEAL VARACIES, APPY, T/A, HEP C, ETOH ABUSE, ASTHMA, COPD Surgeries: Yes (back) Abdominal (Esophageal banding), Adenoidectomy, Orthopedic, Tonsillectomy Respiratory: Yes Asthma, COPD Currently Using CPAP: No Currently Using BIPAP: No Cardiac: Yes Heart Murmur, Hypertension Neurological: Yes 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 Disorders: Yes 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 Disorders: 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 Sexually Transmitted Disease: No HIV/AIDS: No Genitourinary: No Kidney Stones Gastrointestinal: Yes (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; ALCOHOLIC GASTRITIS) Gastroesophageal Reflux, Liver Disease/Jaundice, Gastrointestinal Bleed, Esophageal Varices, Hepatitis, Cirrhosis Musculoskeletal: Yes Arthritis, Fibromyalgia, Chronic Back Pain Endocrine: No HEENT: No Cancer: No Psychosocial: Yes ADD/ADHD, Anxiety Integumentary: No Blood Disorders: No Adverse Reaction/Blood Tranf: No Family Medical History Reviewed Nursing Family Hx Alcoholism G8 SISTER Cardiovascular disease 19 FATHER Colon cancer G8 BROTHER Diabetes mellitus G8 BROTHER Drug abuse G8 SISTER FH: cancer 19 MOTHER (BRAIN) G8 BROTHER Glaucoma 19 FATHER Hypertension 19 FATHER Myocardial infarction 19 FATHER Psychosocial problem 19 FATHER G8 BROTHER G8 SISTER No Family History of: AIDS Abdominal aortic aneurysm Alzheimer's disease Arthritis Asthma Completed stroke Parkinson's disease Respiratory disorder Seizure disorder Severe allergy Thyroid disease No Pertinent Family Hx Physical Exam Vital Signs Vital Signs - First Documented 11/30/20 06:10 Temp 36.6 Pulse 89 Resp 18 B/P (MAP) 144/93 (110) Pulse Ox 94 O2 Delivery Room Air Capillary Refill : Less Than 3 Seconds Height/Weight/BMI Height: 5'4.00" Weight: 127lbs. 4.0oz. 57.698928ga; 20.00 BMI Method:Stated General Appearance: WD/WN, no apparent distress, other (Sluggish) HEENT: PERRL/EOMI, normal ENT inspection, other (Oropharynx dry) Neck: normal inspection Respiratory: lungs clear, normal breath sounds, no respiratory distress, no accessory muscle use Cardiovascular: regular rate, rhythm, no edema, no murmur Gastrointestinal: normal bowel sounds, distended, tenderness (Diffuse, tenderness to percussion) Extremities: normal inspection, no pedal edema Neurologic/Psychiatric: strip tank tender II-XII nml as tested, no motor/sensory deficits, alert, other (Alert and conversational but sluggish and subdued) Skin: normal color, warm/dry Progress/Results/Core Measures Results/Orders Lab Results Laboratory Tests Test 11/30/20 06:14 11/30/20 06:18 Range/Units White Blood Count 6.9 4.3-11.0 10^3/uL Red Blood Count 4.31 3.80-5.11 10^6/uL Hemoglobin 11.8 11.5-16.0 g/dL Hematocrit 36 35-52 % Mean Corpuscular Volume 83 80-99 fL Mean Corpuscular Hemoglobin 27 25-34 pg Mean Corpuscular Hemoglobin Concent 33 32-36 g/dL Red Cell Distribution Width 23.9 H 10.0-14.5 % Platelet Count 249 130-400 10^3/uL Mean Platelet Volume 11.5 9.0-12.2 fL Immature Granulocyte % (Auto) 0 % Neutrophils (%) (Auto) 67 42-75 % Lymphocytes (%) (Auto) 23 12-44 % Monocytes (%) (Auto) 8 0-12 % Eosinophils (%) (Auto) 2 0-10 % Basophils (%) (Auto) 1 0-10 % Neutrophils # (Auto) 4.6 1.8-7.8 10^3/uL Lymphocytes # (Auto) 1.6 1.0-4.0 10^3/uL Monocytes # (Auto) 0.5 0.0-1.0 10^3/uL Eosinophils # (Auto) 0.2 0.0-0.3 10^3/uL Basophils # (Auto) 0.1 0.0-0.1 10^3/uL Immature Granulocyte # (Auto) 0.0 0.0-0.1 10^3/uL Percent Immature Platelet Fraction 8.8 H 0.0-7.6 % Erythrocyte Sedimentation Rate 57 H 0-30 MM/HR Prothrombin Time 16.4 H 12.2-14.7 SEC INR Comment 1.3 0.8-1.4 Sodium Level 127 L 135-145 MMOL/L Potassium Level 2.2 *L 3.6-5.0 MMOL/L Chloride Level 88 L 98-107 MMOL/L Carbon Dioxide Level 28 21-32 MMOL/L Anion Gap 11 5-14 MMOL/L Blood Urea Nitrogen 3 L 7-18 MG/DL Creatinine 0.59 L 0.60-1.30 MG/DL Estimat Glomerular Filtration Rate 105 BUN/Creatinine Ratio 5 Glucose Level 149 H 70-105 MG/DL Calcium Level 7.7 L 8.5-10.1 MG/DL Corrected Calcium 8.8 8.5-10.1 MG/DL Magnesium Level 1.6 1.6-2.4 MG/DL Total Bilirubin 1.2 H 0.1-1.0 MG/DL Aspartate Amino Transf (AST/SGOT) 32 5-34 U/L Alanine Aminotransferase (ALT/SGPT) 11 0-55 U/L Alkaline Phosphatase 50 40-136 U/L Ammonia 65 H 11-32 UMOL/L C-Reactive Protein High Sensitivity 1.98 H 0.00-0.50 MG/DL Total Protein 7.5 6.4-8.2 GM/DL Albumin 2.6 L 3.2-4.5 GM/DL Lipase 11 8-78 U/L Serum Alcohol < 10 <10 MG/DL My Orders Orders - GOLD HOWARD MD Ammonia (11/30/20 06:26) Cbc With Automated Diff (11/30/20 06:26) Comprehensive Metabolic Panel (11/30/20 06:26) Hs C Reactive Protein (11/30/20 06:26) Lipase (11/30/20 06:26) Magnesium (11/30/20 06:26) Ua Culture If Indicated (11/30/20 06:26) Erythrocyte Sedimentation Rate (11/30/20 06:26) Ondansetron Injection (Zofran Injectio (11/30/20 06:30) Ed Iv/Invasive Line Start (11/30/20 06:26) Potassium Cl 10meq/50ml Ivpb (Kcl 10 Meq (11/30/20 07:15) Ct Abdomen/Pelvis W (11/30/20 07:14) Protime With Inr (11/30/20 07:15) Morphine Injection (Morphine Injection (11/30/20 07:27) Iohexol Injection (Omnipaque 350 Mg/Ml 1 (11/30/20 07:30) Received Contrast (Hold Metformin- Contr (11/30/20 07:30) Ns (Ivpb) (Sodium Chloride 0.9% Ivpb Bag (11/30/20 07:30) Alcohol (11/30/20 07:58) Drug Screen Stat (Urine) (11/30/20 08:47) Medications Given in ED Current Medications Medications Dose Ordered Sig/Pino Route Start Time Stop Time Status Last Admin Dose Admin Iohexol 100 ml ONCE ONCE IV 11/30/20 07:30 11/30/20 07:38 DC 11/30/20 08:08 74 ML Ondansetron HCl 4 mg ONCE ONCE IVP 11/30/20 06:30 11/30/20 06:31 DC 11/30/20 06:37 4 MG Potassium Chloride 50 ml @ 50 mls/hr ONCE ONCE IV 11/30/20 07:15 11/30/20 08:14 DC 11/30/20 07:25 50 MLS/HR Sodium Chloride 100 ml ONCE ONCE IV 11/30/20 07:30 11/30/20 07:38 DC 11/30/20 08:08 80 ML Vital Signs/I&O 11/30/20 06:10 Temp 36.6 Pulse 89 Resp 18 B/P (MAP) 144/93 (110) Pulse Ox 94 O2 Delivery Room Air Blood Pressure Mean: 110 Progress Progress Note #1: Time: 08:05 Progress Note Patient was treated with Zofran and morphine. She has severe hypokalemia and potassium is now being replaced by IV route. Because of peritoneal signs a CT of the abdomen and pelvis is being obtained. Admission is anticipated with a surgical consult. Progress Note #2: Time: 09:[address] revealed no pathology requiring acute surgical interventions. I did consult Dr. Vaughn. Careful observation is being advised at this time. Suspicion for acute spontaneous bacterial peritonitis is low as her labs do not suggest infection and she is afebrile. CT did not demonstrate a significant fluid level amenable to paracentesis. Paracentesis is not planned at this time. Admission will be pursued to continue potassium replacement and to treat and monitor her hepatic encephalopathy. I did discuss CODE STATUS with the patient. She elects to be full code and wishes to have tissue/organ donation if she were to have a renal event. Diagnostic Imaging Diagonstic Imaging: CT Plain Films/CT/US/NM/MRI: abdomen, pelvis Comments CT abdomen and pelvis viewed by me and report reviewed. See report below: NAME: AMANDA TILLMAN [facility] REC#: [id number] PT STATUS: REG ER : 1965 PHYSICIAN: GOLD HOWARD MD ADMIT DATE: 11/30/20/ER Draft Date of Exam:11/30/20 CT ABDOMEN/PELVIS W PROCEDURE: CT abdomen and pelvis with contrast. TECHNIQUE: Multiple contiguous axial images were obtained through the abdomen and pelvis after administration of intravenous contrast. Auto Exposure Controls were utilized during the CT exam to meet ALARA standards for radiation dose reduction. All CT scans use one or more of the following dose optimizing techniques: automated exposure control, MA and/or KvP adjustment based on patient size and exam type or iterative reconstruction. INDICATION: Bloating, pain, ascites, hepatic failure. COMPARISON: 11/08/2019. FINDINGS: The cirrhotic morphology of the liver is more pronounced on today's exam when compared to prior but no identifiable intraparenchymal liver mass. There is a dilated recanalized periumbilical vein, paraesophageal varicosities, and abdominal/pelvic ascites, presumed to reflect sequelae of portal venous hypertension. The spleen is within normal limits of size and stable. There is enhancement of the intra and extrahepatic portal veins which are patent; however, directional flow cannot be addressed at CT. There are small stones within the gallbladder lumen but no secondary findings of acute cholecystitis. There is no bile duct dilatation. The adrenals are negative. The pancreas is unremarkable. The abdominal/pelvic free fluid volume is slightly increased from prior. There is no loculated collection. No ileus or bowel obstruction. The uterus, adnexa, and urinary bladder are unremarkable. The unobstructed urinary tracts are normal. There are substantial aortoiliac and mesenteric atherosclerotic vascular calcifications without demonstrated thrombus or findings suggestive of acute end organ ischemia. There is no evidence for abscess or hemorrhage. No focal inflammatory process is identified. IMPRESSION: 1. Progressive cirrhotic morphology of the liver without evidence for liver mass. Increased ascites with varicosities and vascular collateral pathways owing to portal venous hypertension. 2. Gallstones without secondary features of acute cholecystitis. No liver mass with normal spleen size. 3. Chronic nonaneurysmal atherosclerotic vascular calcifications. No basilar pleural fluid. Dictated on workstation # [id number] Dict: 11/30/20825 Trans: 11/30/20 0834 [id number] Interpreted by: CRISTAL CHAN Departure Communication (Admissions) Time/Spoke to Admitting Phy: 09:25 Dr. Elkins Time/Spoke to Consulting Phy: 08:45 Dr. Vaughn Impression Primary Impression: Hypokalemia Additional Impressions: Hepatic encephalopathy Abdominal pain Qualified Codes: R10.84 - Generalized abdominal pain Abdominal ascites Qualified Codes: R18.8 - Other ascites Disposition: ADMITTED INPATIENT Condition: Improved Admissions Decision to Admit Reason: Admit from ER (General) Decision to Admit/Date: Nov 30, 2020 Time/Decision to Admit Time: 07:10 Departure-Patient Inst. Referrals: RINKU MANDEL DO (PCP/Family) Primary Care Physician GOLD HOWARD MD Nov 30, 2020 07:58
--- NOTE | 2020-11-30 08:34 | Diagnostic Imaging Report ---
PROCEDURE: CT abdomen and pelvis with contrast. TECHNIQUE: Multiple contiguous axial images were obtained through the abdomen and pelvis after administration of intravenous contrast. Auto Exposure Controls were utilized during the CT exam to meet ALARA standards for radiation dose reduction. All CT scans use one or more of the following dose optimizing techniques: automated exposure control, MA and/or KvP adjustment based on patient size and exam type or iterative reconstruction. INDICATION: Bloating, pain, ascites, hepatic failure. COMPARISON: 11/08/2019. FINDINGS: The cirrhotic morphology of the liver is more pronounced on today's exam when compared to prior but no identifiable intraparenchymal liver mass. There is a dilated recanalized periumbilical vein, paraesophageal varicosities, and abdominal/pelvic ascites, presumed to reflect sequelae of portal venous hypertension. The spleen is within normal limits of size and stable. There is enhancement of the intra and extrahepatic portal veins which are patent; however, directional flow cannot be addressed at CT. There are small stones within the gallbladder lumen but no secondary findings of acute cholecystitis. There is no bile duct dilatation. The adrenals are negative. The pancreas is unremarkable. The abdominal/pelvic free fluid volume is slightly increased from prior. There is no loculated collection. No ileus or bowel obstruction. The uterus, adnexa, and urinary bladder are unremarkable. The unobstructed urinary tracts are normal. There are substantial aortoiliac and mesenteric atherosclerotic vascular calcifications without demonstrated thrombus or findings suggestive of acute end organ ischemia. There is no evidence for abscess or hemorrhage. No focal inflammatory process is identified. IMPRESSION: 1. Progressive cirrhotic morphology of the liver without evidence for liver mass. Increased ascites with varicosities and vascular collateral pathways owing to portal venous hypertension. 2. Gallstones without secondary features of acute cholecystitis. No liver mass with normal spleen size. 3. Chronic nonaneurysmal atherosclerotic vascular calcifications. No basilar pleural fluid. Dictated by: Dictated on workstation # [id number]
[2020-11-30 09:44] LABS: BILIRUBIN,URINE NEGATIVE (NEGATIVE); CLARITY,URINE CLEAR; COLOR,URINE YELLOW; GLUCOSE, URINE (UA) NEGATIVE (NEGATIVE); KETONES,URINE NEGATIVE (NEGATIVE); LEUKOCYTE ESTERASE ,URINE NEGATIVE (NEGATIVE); NITRITE,URINE NEGATIVE (NEGATIVE); PH,URINE 5.5 (5-9); PROTEIN,URINE NEGATIVE (NEGATIVE)
[2020-11-30 09:51] LABS: BACTERIA,URINE NEGATIVE /HPF
[2020-11-30 09:59] LABS: AMPHETAMINE SCREEN, URINE NEGATIVE (NEGATIVE); BENZODIAZEPINES SCREEN URINE POSITIVE (NEGATIVE); COCAINE SCREEN URINE NEGATIVE (NEGATIVE); METHAMPHETAMINE SCREEN URINE S NEGATIVE (NEGATIVE)
[2020-11-30 10:00] LABS: BARBITURATE SCREEN URINE NEGATIVE (NEGATIVE); CANNABINOID SCREEN, URINE NEGATIVE (NEGATIVE); METHADONE STAT NEGATIVE (NEGATIVE); OPIATE SCREEN URINE POSITIVE (NEGATIVE); OXYCODONE STAT NEGATIVE (NEGATIVE); PROPOXYPHENE STAT NEGATIVE (NEGATIVE); TRICYCLIC ANTIDEPRESSANTS SCRE NEGATIVE (NEGATIVE)
[2020-11-30 10:25] VITALS: BP 109/63
[2020-11-30] MEDS: NS IV 1000 ML 1,000 ML IV SCH (10:46)
[2020-11-30] MEDS: LACTULOSE SYRUP 10GM/15ML (ENULOSE) 30ML UDC PO SCH ×2 (10:46→18:13)
[2020-11-30] MEDS: POTASSIUM CL 10MEQ/50ML IVPB 50 ML IV SCH ×8 (10:47→21:48)
[2020-11-30 12:08] VITALS: BP 109/63
--- NOTE | 2020-11-30 13:19 | CONSULTATION REPORT ---
DATE OF SERVICE: ATTENDING PRIMARY CARE PHYSICIAN: Luis Ruby DO ADMITTING PHYSICIAN: Dr. 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 She has also had a history of symptomatic ascites. She presented to the Emergency Department with abdominal pain and distention as well as nausea. She also has had altered mentation, speech as well as weakness. A CT scan was performed, which did not show any acute inflammatory process. There was only a small amount of ascitic fluid identified. There is a significant amount of stool within her colon identified. PAST MEDICAL HISTORY: Hepatitis C, esophageal varices, COPD, asthma, hypertension, gastroesophageal reflux disease, fibromyalgia. PAST SURGICAL HISTORY: Esophageal variceal banding, tonsillectomy, back surgery. ALLERGIES: CODEINE, FENTANYL. MEDICATIONS: Albuterol 2 puffs q.4 hours p.r.n., alprazolam 0.5 mg p.r.n., amlodipine 10 mg daily, benzonatate 100 mg q.6 hours p.r.n., fluticasone salmeterol 1 puff b.i.d., furosemide 20 mg daily, gabapentin 300 mg daily, hydrocodone q.6 hours p.r.n., levothyroxine 25 mcg daily, meloxicam 15 mg daily, Zofran 4 mg q.4 hours p.r.n., Protonix 40 mg b.i.d., promethazine p.r.n., tramadol p.r.n. SOCIAL HISTORY: Positive smoke 50 pack years. Positive alcohol. FAMILY HISTORY: Mother, brain malignancy. Brother, colon cancer. Father, hypertension, myocardial infarction. VITAL SIGNS: Temperature 36.6, blood pressure 144/93, pulse 89, respirations 18, pulse ox 94% on room air. REVIEW OF SYSTEMS: Slightly thin-appearing female, currently in no acute distress. She is not experiencing any shortness of breath or difficulty breathing. No chest pain, palpitations, diaphoresis. Intermittent episodes of nausea. No vomiting, no hematemesis, no coffee ground emesis. History of constipation. No known red blood per rectum, no dark tarry stools. No fever, chills, no recent inadvertent weight loss. All other review of systems negative. PHYSICAL EXAMINATION: CHEST: Distant breath sounds and scattered wheezes bilaterally. HEART: Regular, no murmurs. EXTREMITIES: +1/3 bilateral lower extremity edema, negative Homans sign. HEENT: No scleral icterus. NECK: No cervical lymphadenopathy. ABDOMEN: Soft, slightly distended. There is a global diffuse tenderness upon palpation. No peritoneal signs. No hernias. SKIN: Warm and dry. LABORATORY DATA: WBC 6.9, hemoglobin 11.8, hematocrit 36, platelets 249. Potassium 2.2. BUN 3, creatinine 0.59, total bilirubin 1.2, albumin 2.6. INR 1.3. ASSESSMENT AND PLAN: A 55-year-old female with multiple medical comorbidities including chronic obstructive pulmonary disease, substance abuse, hepatitis C, and alcoholic liver cirrhosis with hypokalemia, weakness and abdominal pain. At this time, we do not feel that there is a significant amount of ascitic fluid within the peritoneal cavity to proceed with a paracentesis. She does have a significant amount of stool within her colon, likely related to her regular use of narcotic pain medications. There is no acute inflammatory process or symptoms related to spontaneous bacterial peritonitis. We will start oral gentle laxatives and continue with medical management with low sodium diet, fluid restriction as well as continuation of diuretics with spironolactone and Lasix. Her Child-Simms classification is A. Job ID: [id number] DocumentID: [id number] Dictated Date: 11/30/2020 13:00:37 Landscape Crew Member Date: 11/30/2020 13:18:51 Dictated By: KAROLINE STONE MD [facility]ENTER[facility]ime
--- NOTE | 2020-11-30 14:34 | History & Physical-Hospitalist ---
History of Present Illness HPI/Chief Complaint Pt is a 55yoCF with a PMH who presented to the ER due to abdominal pain. She is somewhat confused and apologizes for her memory issues. She at first was unable to tell me what brought her to the hospital other than she "drank too much for years." She complains of abdominal soreness and constipation. She otherwise denied complaints but asked for a pen and paper to write things down as she remembered them later. All other history is obtained from the records. Source: patient Date Seen 11/30/20 Time Seen by a Provider: 14:21 Attending Physician Desmond Elkins MD PCP Luis Ruby DO Referring Physician Date of Admission Nov 30, 2020 at 09:58 Home Medications & Allergies Home Medications Reviewed patient Home Medication Reconciliation performed by pharmacy medication reconciliations service center technician and/or nursing. Patients Allergies have been reviewed. Allergies Allergies Coded Allergies codeine (Verified Allergy, Unknown, 11/08/19) fentanyl (Verified Adverse Reaction, Unknown, PATIENT REQUEST NOT TO HAVE IT , 11/08/19) Past Ulpccbh-Uewevs-Jsffzt Hx Patient Social History Employed/Student: unemployed Tobacco Use?: Yes Tobacco type used: Cigarettes Smoking Status: Current Everyday Smoker Use of E-Cig and/or Vaping dev: No Substance use?: Yes Substance type: Opiates/Opioids, Marijuana Alcohol Use?: Yes (history) Alcohol type: Beer, Hard Liquor Alcohol Frequency: Daily Additional Alcohol Comments: PAST ETOH ABUSE HISTORY Pt feels they are or have been: Yes Immunizations Up To Date Date of Influenza Vaccine: Jan 16, 2019 First/Initial COVID19 Vaccinat: 10/11 Second COVID19 Vaccination Everardo: 10/11 Tetanus Booster (TDap): Unknown Hepatitis A: No Hepatitis B: No PED Vaccines UTD: No Date of Pneumonia Vaccine: Jul 22, 2008 Seasonal Allergies Seasonal Allergies: Yes Current Status Advance Directives: No Communicates: Verbally Primary Language: Micronesian Preferred Spoken Language: Micronesian Is interpretation needed?: No Sensory deficits: Vision impairment Implanted or Applied Medical D: None Past Medical History Surgeries: Abdominal (Esophageal banding), Adenoidectomy, Orthopedic, Tonsillectomy Asthma, COPD Currently Using CPAP: No Currently Using BIPAP: No Heart Murmur, 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 Sexually Transmitted Disease: No HIV/AIDS: No Kidney Stones Gastroesophageal Reflux, Liver Disease/Jaundice, Gastrointestinal Bleed, Esophageal Varices, Hepatitis, Cirrhosis Arthritis, Fibromyalgia, Chronic Back Pain ADD/ADHD, Anxiety Blood Disorders: No Adverse Reaction/Blood Tranf: No Family Medical History Reviewed Nursing Family Hx Alcoholism G8 SISTER Cardiovascular disease 19 FATHER Colon cancer G8 BROTHER Diabetes mellitus G8 BROTHER Drug abuse G8 SISTER FH: cancer 19 MOTHER (BRAIN) G8 BROTHER Glaucoma 19 FATHER Hypertension 19 FATHER Myocardial infarction 19 FATHER Psychosocial problem 19 FATHER G8 BROTHER G8 SISTER No Family History of: AIDS Abdominal aortic aneurysm Alzheimer's disease Arthritis Asthma Completed stroke Parkinson's disease Respiratory disorder Seizure disorder Severe allergy Thyroid disease No Pertinent Family Hx Review of Systems Constitutional: see HPI Physical Exam Physical Exam Vital Signs Vital Signs - First Documented 11/30/20 11/30/20 11/30/20 06:10 09:15 15:53 Temp 36.6 Pulse 89 Resp 18 B/P (MAP) 144/93 (110) Pulse Ox 94 O2 Delivery Room Air O2 Flow Rate 2.00 FiO2 21 Capillary Refill : Less Than 3 Seconds Height, Weight, BMI Height: 5'4.00" Weight: 127lbs. 4.0oz. 57.595081ia; 20.97 BMI Method:Stated General Appearance: No Apparent Distress, Chronically ill, Thin HEENT: PERRL/EOMI, Moist Mucous Membranes; No Scleral Icterus (L), No Scleral Icterus (R) Neck: Normal Inspection, Supple Respiratory: Lungs Clear, No Accessory Muscle Use, No Respiratory Distress Cardiovascular: Regular Rate, Rhythm, No Murmur Gastrointestinal: Normal Bowel Sounds, Soft, Distended; No Guarding, No Tenderness Extremity: No Calf Tenderness, No Pedal Edema Neurologic/Psychiatric: Alert, Other (oriented to major details only) Skin: Normal Color Results Results/Procedures Labs Laboratory Tests 11/30/20 06:14 11/30/20 14:48 12/01/20 10:51 Patient resulted labs reviewed. Imaging [facility], [place] NAME: KAREN TILLMANGwen Sandy [facility] REC#: [id number] PT STATUS: ADM IN : 1965 PHYSICIAN: GOLD HOWARD MD ADMIT DATE: 11/30/20 Signed Date of Exam:11/30/20 CT ABDOMEN/PELVIS W PROCEDURE: CT abdomen and pelvis with contrast. TECHNIQUE: Multiple contiguous axial images were obtained through the abdomen and pelvis after administration of intravenous contrast. Auto Exposure Controls were utilized during the CT exam to meet ALARA standards for radiation dose reduction. All CT scans use one or more of the following dose optimizing techniques: automated exposure control, MA and/or KvP adjustment based on patient size and exam type or iterative reconstruction. INDICATION: Bloating, pain, ascites, hepatic failure. COMPARISON: 11/08/2019. FINDINGS: The cirrhotic morphology of the liver is more pronounced on today's exam when compared to prior but no identifiable intraparenchymal liver mass. There is a dilated recanalized periumbilical vein, paraesophageal varicosities, and abdominal/pelvic ascites, presumed to reflect sequelae of portal venous hypertension. The spleen is within normal limits of size and stable. There is enhancement of the intra and extrahepatic portal veins which are patent; however, directional flow cannot be addressed at CT. There are small stones within the gallbladder lumen but no secondary findings of acute cholecystitis. There is no bile duct dilatation. The adrenals are negative. The pancreas is unremarkable. The abdominal/pelvic free fluid volume is slightly increased from prior. There is no loculated collection. No ileus or bowel obstruction. The uterus, adnexa, and urinary bladder are unremarkable. The unobstructed urinary tracts are normal. There are substantial aortoiliac and mesenteric atherosclerotic vascular calcifications without demonstrated thrombus or findings suggestive of acute end organ ischemia. There is no evidence for abscess or hemorrhage. No focal inflammatory process is identified. IMPRESSION: 1. Progressive cirrhotic morphology of the liver without evidence for liver mass. Increased ascites with varicosities and vascular collateral pathways owing to portal venous hypertension. 2. Gallstones without secondary features of acute cholecystitis. No liver mass with normal spleen size. 3. Chronic nonaneurysmal atherosclerotic vascular calcifications. No basilar pleural fluid. Dictated by: Dictated on workstation # [id number] Dict: 11/30/20825 Trans: 11/30/201129 [id number] Interpreted by: CRISTAL CHAN Electronically signed by: CRISTAL CHAN 11/30/20 1130 Assessment/Plan Admission Diagnosis Hypokalemia Admission Status: Observation Assessment and Plan Hypokalemia End stage liver disease from alcoholic cirrhosis Hepatic encephlopathy Ascites esophageal varices Replaced potassium Mag 1.6 so will give 2g as well Repeat BMP this pm Surgery consulted, no indication for paracentesis lactulose ordered HTN BP well controlled, trend COPD tobacco abuse Resume home inhalers when med rec done MAT protocol DVT ppx: LOUISEs DESMOND ELKINS MD Nov 30, 2020 14:34
[2020-11-30] MEDS: morphine INJ 4 MG/ML 1 ML (VIAL/SYRINGE) IVP PRN ×3 (14:54→21:48)
[2020-11-30] MEDS: MAGNESIUM 1 GM/100 ML IVPB 100 ML IV SCH ×2 (14:56→16:05)
[2020-11-30 15:26] LABS: CALCIUM 8.1 MG/DL (8.5-10.1); CREATININE SERUM 0.75 MG/DL (0.60-1.30); POTASSIUM 2.6 MMOL/L (3.6-5.0)
[2020-11-30 15:33] VITALS: BP 110/65
[2020-11-30] MEDS ORDERED: SUCR1TAB PO (15:53)
[2020-11-30] MEDS ORDERED: PROP60TA17 PO (15:53)
[2020-11-30] MEDS ORDERED: CETI10TA17 PO (15:53)
[2020-11-30] MEDS ORDERED: FLUT16SP22 NSEACH (15:53)
[2020-11-30] MEDS ORDERED: GABA300C PO (15:53)
[2020-11-30] MEDS ORDERED: LACT10SO3 PO (15:53)
[2020-11-30] MEDS ORDERED: PROM25TA14 PO (15:53)
[2020-11-30] MEDS ORDERED: ROPI0.253 PO (15:53)
[2020-11-30] MEDS ORDERED: SUCRALFATE 1 GM (CARAFATE) TAB PO PRN (19:30)
[2020-11-30] MEDS ORDERED: RT-ALBUTEROL SULF 2.5 MG/3 ML PRE-MIX VIAL IH PRN (19:30)
[2020-11-30 20:00] VITALS: BP 112/58
[2020-11-30] MEDS ORDERED: ADVAIR HFA 115/21 MCG INHALER 8 GM IH SCH (20:00)
[2020-11-30] MEDS: ALPRAZolam 0.5 MG (XANAX) TAB PO SCH (20:29)
[2020-11-30] MEDS: GABAPENTIN 300 MG (NEURONTIN) CAP PO SCH (20:29)
[2020-11-30] MEDS: LORATADINE (CLARITIN) 10 MG TAB PO SCH (20:29)
[2020-11-30] MEDS: rOPINIRole 0.25 MG (REQUIP) TAB PO SCH (20:29)
[2020-11-30] MEDS: polyethylene glycoL POWDER 17 GM (MIRALAX) PACK PO SCH (20:35)
[2020-11-30] MEDS ORDERED: NON-FORMULARY MEDICATION 1 EA EA (Cetirizine HCl 10 MG) PO SCH (21:00)
[2020-11-30] MEDS ORDERED: NON-FORMULARY MEDICATION 1 EA EA (Fluticasone/Salmeterol (Advair 250-50 Diskus) 1 PUFF) INH SCH (21:00)
[2020-11-30] MEDS: RT-ALBUTEROL/IPRATROPIUM 3 ML (DUONEB) VIAL INH SCH (22:31)
[2020-11-30 23:26] VITALS: BP 109/63
[2020-12-01] MEDS: LACTULOSE SYRUP 10GM/15ML (ENULOSE) 30ML UDC PO SCH ×3 (02:06→18:05)
[2020-12-01] MEDS: morphine INJ 4 MG/ML 1 ML (VIAL/SYRINGE) IVP PRN ×3 (02:25→09:48)
[2020-12-01 03:18] VITALS: BP 107/68
[2020-12-01] MEDS: NS IV 1000 ML 1,000 ML IV SCH (05:08)
[2020-12-01] MEDS: LEVOTHYROXINE 25 MCG (LEVOTHROID) TAB PO SCH (05:08)
[2020-12-01] MEDS: RT-ALBUTEROL/IPRATROPIUM 3 ML (DUONEB) VIAL INH SCH ×2 (07:44→20:30)
[2020-12-01 08:00] VITALS: BP 123/69
[2020-12-01] MEDS: ALPRAZolam 0.5 MG (XANAX) TAB PO SCH ×2 (08:36→20:31)
[2020-12-01] MEDS: PROPRANOLOL 20 MG (INDERAL) TABLET PO SCH (08:36)
[2020-12-01] MEDS: FLUTICASONE NASAL SPRAY (FLONASE) 16 GM BTL NS SCH (08:44)
[2020-12-01] MEDS: polyethylene glycoL POWDER 17 GM (MIRALAX) PACK PO SCH ×2 (08:45→20:32)
[2020-12-01] MEDS ORDERED: NON-FORMULARY MEDICATION 1 EA EA (Propranolol HCl 60 MG) PO SCH (09:00)
[2020-12-01] MEDS: RT--FLUTICASONE/SALMETEROL 113-14 (AIRDUO RespiCLICK) IH SCH ×2 (09:41→20:30)
[2020-12-01 11:17] LABS: CALCIUM 8.6 MG/DL (8.5-10.1); CREATININE SERUM 0.72 MG/DL (0.60-1.30); MAGNESIUM 2.3 MG/DL (1.6-2.4); POTASSIUM 3.1 MMOL/L (3.6-5.0)
[2020-12-01 12:08] VITALS: BP 119/68
[2020-12-01] MEDS ORDERED: KCL 20 MEQ TAB (K-DUR) PO NR (13:15)
--- NOTE | 2020-12-01 14:06 | Progress Note - Hospitalist ---
Subjective HPI/CC On Admission Date Seen by Provider: Dec 01, 2020 Time Seen by Provider: 13:59 Pt is a 55yoCF with a PMH who presented to the ER due to abdominal pain. She is somewhat confused and apologizes for her memory issues. She at first was unable to tell me what brought her to the hospital other than she "drank too much for years." She complains of abdominal soreness and constipation. She otherwise denied complaints but asked for a pen and paper to write things down as she remembered them later. All other history is obtained from the records. Subjective/Events-last exam Pt laying in bed sleeping. I had to wake her. She immediately complains of pain in her shoulder that is sharp and intermittent. She denies any other complaints when broadly asked but when ask if her abdomen feels better she then complains of pain. She also complains about the quality of the food. She fell asleep midsentence while telling me that. Objective Exam Vital Signs Vital Signs Date Time Temp Pulse Resp B/P (MAP) Pulse Ox O2 Delivery O2 Flow Rate FiO2 12/01/20 12:30 66 12/01/20 12:08 36.4 20 119/68 (85) 95 Room Air 11/30/20 22:32 21 11/30/20 15:33 1.00 Capillary Refill : Less Than 3 Seconds General Appearance: No Apparent Distress, Chronically ill, Thin Respiratory: Lungs Clear, No Respiratory Distress Cardiovascular: Regular Rate, Rhythm, No Murmur Gastrointestinal: Normal Bowel Sounds, Non Tender, Soft Neurologic/Psychiatric: Alert, Oriented x3 (when awake but drowsy) Results/Procedures Lab Laboratory Tests 11/30/20 14:48 12/01/20 10:51 Patient resulted labs reviewed. 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
[2020-12-01 15:27] VITALS: BP 128/62
[2020-12-01] MEDS: HYDROcodone/APAP 5 MG/325 MG (LORTAB) TAB PO PRN ×2 (15:41→20:32)
--- NOTE | 2020-12-01 17:54 | Progress Note ---
Subjective Date Seen by a Provider: Dec 01, 2020 Time Seen by a Provider: 17:00 Subjective/Events-last exam doing ok. no new abd distention. always states pain however appears in no acute distress. Objective Exam Vital Signs Date Time Temp Pulse Resp B/P (MAP) Pulse Ox O2 Delivery O2 Flow Rate FiO2 12/01/20 15:27 36.3 70 18 128/62 (84) 93 Room Air 12/01/20 12:30 66 12/01/20 12:08 36.4 68 20 119/68 (85) 95 Room Air 12/01/20 09:41 97 Room Air 12/01/20 08:00 92 Room Air 12/01/20 08:00 36.4 78 20 123/69 (87) 93 Room Air 12/01/20 07:44 92 Room Air 12/01/20 06:39 75 12/01/20 03:18 36.6 70 16 107/68 (81) 93 Room Air 12/01/20 01:00 73 11/30/20 23:26 36.4 76 16 109/63 (78) 92 Room Air 11/30/20 22:32 92 Room Air 21 11/30/20 20:00 Room Air 11/30/20 20:00 36.4 79 18 112/58 (76) 93 Room Air 11/30/20 19:00 77 I & O 12/01/20 07:00 Intake Total 1610 ml Balance 1610 ml Capillary Refill : Less Than 3 Seconds General Appearance: No Apparent Distress Neck: Full Range of Motion Respiratory: Chest Non Tender, Lungs Clear, Normal Breath Sounds Cardiovascular: Regular Rate, Rhythm Gastrointestinal: normal bowel sounds, soft, tenderness Extremity: Normal Capillary Refill Neurologic/Psychiatric: Alert, Oriented x3 Skin: Normal Color Lymphatic: No Adenopathy Results Lab Laboratory Tests 12/01/20 04:30: Magnesium Level 2.4 12/01/20 10:51: Magnesium Level 2.3, Sodium Level 129L, Potassium Level 3.1L, Chloride Level 93L , Carbon Dioxide Level 29, Anion Gap 7, Blood Urea Nitrogen 4L, Creatinine 0.72, Estimat Glomerular Filtration Rate 83, BUN/Creatinine Ratio 6, Glucose Level 105, Calcium Level 8.6 Assessment/Plan Assessment/Plan Assess & Plan/Chief Complaint abd pain, liver cirrhosis, mild ascites, contipation. cont miralax. KIDO,TAKAAKI MD Dec 01, 2020 17:54
[2020-12-01 19:20] VITALS: BP 112/61
[2020-12-01] MEDS: GABAPENTIN 300 MG (NEURONTIN) CAP PO SCH (20:31)
[2020-12-01] MEDS: rOPINIRole 0.25 MG (REQUIP) TAB PO SCH (20:32)
[2020-12-01] MEDS: LORATADINE (CLARITIN) 10 MG TAB PO SCH (20:32)
[2020-12-02] VITALS: BP 115/66
[2020-12-02] MEDS: HYDROcodone/APAP 5 MG/325 MG (LORTAB) TAB PO PRN ×2 (01:51→05:58)
[2020-12-02] MEDS: LACTULOSE SYRUP 10GM/15ML (ENULOSE) 30ML UDC PO SCH (01:51)
[2020-12-02 05:24] LABS: HEMATOCRIT 35 % (35-52); HEMOGLOBIN 11.1 g/dL (11.5-16.0); MEAN CORPUSCULAR HEMOGLOBIN 28 pg (25-34); MEAN CORPUSCULAR HGB CONC 32 g/dL (32-36); MEAN CORPUSCULAR VOLUME 87 fL (80-99); MEAN PLATELET VOLUME 10.3 fL (9.0-12.2); PLATELET COUNT 209 10^3/uL (130-400); WHITE BLOOD COUNT 4.2 10^3/uL (4.3-11.0)
[2020-12-02 05:35] LABS: POTASSIUM 3.3 MMOL/L (3.6-5.0)
[2020-12-02 05:36] LABS: CALCIUM 8.1 MG/DL (8.5-10.1)
[2020-12-02 05:40] LABS: CREATININE SERUM 0.66 MG/DL (0.60-1.30)
[2020-12-02] MEDS: LEVOTHYROXINE 25 MCG (LEVOTHROID) TAB PO SCH (05:58)
[2020-12-02] MEDS ORDERED: KCL 20 MEQ TAB (K-DUR) PO SCH (07:00)
[2020-12-02] MEDS: RT-ALBUTEROL/IPRATROPIUM 3 ML (DUONEB) VIAL INH SCH (07:35)
[2020-12-02] MEDS: RT--FLUTICASONE/SALMETEROL 113-14 (AIRDUO RespiCLICK) IH SCH (07:35)
[2020-12-02 07:56] VITALS: BP 111/59
[2020-12-02] MEDS: polyethylene glycoL POWDER 17 GM (MIRALAX) PACK PO SCH (08:14)
[2020-12-02] MEDS: ALPRAZolam 0.5 MG (XANAX) TAB PO SCH (08:14)
[2020-12-02] MEDS: PROPRANOLOL 20 MG (INDERAL) TABLET PO SCH (08:15)
[2020-12-02] MEDS: FLUTICASONE NASAL SPRAY (FLONASE) 16 GM BTL NS SCH (08:15)
--- NOTE | 2020-12-02 10:18 | Discharge Summary ---
Diagnosis/Chief Complaint Date of Admission Nov 30, 2020 at 09:58 Date of Discharge Dec 02, 2020 at 08:54 Admission Diagnosis Hypokalemia Primary Care Luis Ruby DO Discharge Summary Discharge Physical Exam Allergies: Coded Allergies: codeine (Verified Allergy, Unknown, 11/08/19) fentanyl (Verified Adverse Reaction, Unknown, PATIENT REQUEST NOT TO HAVE IT , 11/08/19) Vitals & I&Os Vital Signs Date Time Temp Pulse Resp B/P (MAP) Pulse Ox O2 Delivery O2 Flow Rate FiO2 12/02/20 08:38 12/02/20 08:00 92 Room Air 12/02/20 07:56 36.2 66 20 11/30/20 22:32 21 11/30/20 15:33 1.00 General Appearance: Other (left AMA prior to be seen on day of discharg) Hospital Course Patient was admitted secondary to hypokalemia and hepatic encephalopathy. She w as treated with lactulose and her mentation improved. He was also treated with IV potassium and her potassium improved as well. On day of discharge she elected to leave AGAINST MEDICAL ADVICE prior to being seen. Per nursing report she was alert and oriented x4 and social service coordinator saw her prior to leaving as well. I called and updated Dr. Ruby regarding this hospitalization. Labs (last 24 hrs) Patient resulted labs reviewed. Pending Labs Discussion & Recommendations Discharge Planning: >30 minutes discharge planning Discharge Home Medications: Active Scripts Active Reported Propranolol HCl 60 Mg Tablet 60 Mg PO DAILY Ropinirole HCl 0.25 Mg Tablet 0.25 Mg PO HS Promethazine Tablet (Promethazine HCl) 25 Mg Tablet 25 Mg PO BID PRN Sucralfate 1 Gm Tablet 1 Gm PO AC PRN Neurontin (Gabapentin) 300 Mg Capsule 600 Mg PO HS TAKES 2 (300MG) CAPS Lactulose 10 Gm/15 Ml Solution 30 Ml PO TID PRN Cetirizine HCl 10 Mg Tablet 10 Mg PO HS Fluticasone Propionate 16 Gm [place].susp 2 Sprays NSEACH DAILY Levothyroxine Sodium 25 Mcg Tablet 25 Mcg PO DAILY Ventolin Hfa (Albuterol Sulfate) 18 Gm Hfa.aer.ad 2 Puff IH Q4H PRN Amlodipine Besylate 10 Mg Tablet 10 Mg PO DAILY Pantoprazole Sodium 40 Mg Tablet.dr 40 Mg PO DAILY Tramadol HCl 50 Mg Tablet 50 Mg PO BID PRN Alprazolam 0.5 Mg Tablet 0.5 Mg PO BID Advair 250-50 Diskus (Fluticasone/Salmeterol) 1 Each Blst.w.dev 1 Puff INH BID Instructions to patient/family Please see electronic discharge instructions given to patient. DESMOND LYNCH MD Dec 02, 2020 10:18
== END 2020-12-02 08:54 | disposition left against medical advice (07) | DRG 433 ==
LOC: EDUNIT# 06:08 → ER 06:09 → 4TH 09:58
PROVIDERS: ADMIT Family Medicine; ATTEND Family Medicine
DX: K70.40 Alcoholic hepatic failure without coma (principal); I85.00 Esophageal varices without bleeding; E87.6 Hypokalemia; K70.31 Alcoholic cirrhosis of liver with ascites; I10 Essential (primary) hypertension; J44.9 Chronic obstructive pulmonary disease, unspecified; F17.210 Nicotine dependence, cigarettes, uncomplicated; M19.90 Unspecified osteoarthritis, unspecified site; M79.7 Fibromyalgia; G89.29 Other chronic pain; M54.9 Dorsalgia, unspecified; F90.9 Attention-deficit hyperactivity disorder, unspecified type; F41.9 Anxiety disorder, unspecified; T40.2X5A Adverse effect of other opioids, initial encounter; K59.03 Drug induced constipation
CPT/HCPCS: 36415; 74177; 80048; 80053; 80306; 80320; 81000; 82140; 83690; 83735; 85025; 85027; 85610; 85652; 86141; 94640

== ENCOUNTER 2020-12-18 16:11 | Emergency (ER) | payer MEDICARE, MEDICAID ==
[~2020-12-18] VITALS: Ht 165 cm; Wt 51.0 kg
[~2020-12-18 16:11] MED LIST changes: +FLUT16SP22 NSEACH; +GABA300C PO; +LACT10SO3 PO; +PROP60TA17 PO; +ROPI0.253 PO
[2020-12-18] MEDS ORDERED: NAPROXEN 250 MG (NAPROSYN) TABLET PO STA (17:43)
--- NOTE | 2020-12-18 18:14 | ED Lower Extremity ---
General Chief Complaint: Skin/Wound Problems Stated Complaint: FELL Nursing Triage Note: TO ROOM AMB PATIENT CAME BY EMS AT 1611 WAS PLACED IN ED WAITING ROOM PATIENT REPORTS THAT SHE FELL X3 DAYS AGO EMS REPORT THAT THAT HAD BEEN TO HOUSE BUT PATIENT REFUSED. NOW C/O PAIN IN R KNEE. ABRASION NOTED TO KNEE PATIENT ASKING FOR PAIN MEDS History of Present Illness Date Seen by Provider: Dec 18, 2020 Time Seen by Provider: 16:30 Initial Comments 55-year-old female presents for an abrasion to her right knee. She states that she fell approximately 4 days ago. She did see an orthopedic surgeon, no additional treatments were started. She has been cleaning the wound and Trying tramadol with no improvement in her symptoms. She did have x-rays done and no significant abnormalities were seen per the patient. She can ambulate with trace discomfort in the right knee. Her last tetanus shot was 4 years ago. Onset: other (4 days ago) Pain/Injury Location: right knee Method of Injury: fell Allergies and Home Medications Allergies Coded Allergies: codeine (Verified Allergy, Unknown, 11/08/19) fentanyl (Verified Adverse Reaction, Unknown, PATIENT REQUEST NOT TO HAVE IT , 11/08/19) Home Medications Albuterol Sulfate 18 Gm Hfa.aer.ad, 2 PUFF IH Q4H PRN for SHORTNESS OF BREATH, (Reported) Alprazolam 0.5 Mg Tablet, 0.5 MG PO BID, (Reported) Amlodipine Besylate 10 Mg Tablet, 10 MG PO DAILY, (Reported) Cetirizine HCl 10 Mg Tablet, 10 MG PO HS, (Reported) Fluticasone Propionate 16 Gm [place].susp, 2 SPRAYS NSEACH DAILY, (Reported) Fluticasone/Salmeterol 1 Each Blst.w.dev, 1 PUFF INH BID, (Reported) Gabapentin 300 Mg Capsule, 600 MG PO HS, (Reported) TAKES 2 (300MG) CAPS Lactulose 10 Gm/15 Ml Solution, 30 ML PO TID PRN for CONSTIPATION-3RD LINE, (Reported) Levothyroxine Sodium 25 Mcg Tablet, 25 MCG PO DAILY, (Reported) Naproxen 500 Mg Tablet, 500 MG PO BID Prescribed by: PJ TREJO on 12/18/20 1820 Pantoprazole Sodium 40 Mg Tablet.dr, 40 MG PO DAILY, (Reported) Promethazine HCl 25 Mg Tablet, 25 MG PO BID PRN for NAUSEA/VOMITING-2ND LINE, (Reported) Propranolol HCl 60 Mg Tablet, 60 MG PO DAILY, (Reported) Ropinirole HCl 0.25 Mg Tablet, 0.25 MG PO HS, (Reported) Sucralfate 1 Gm Tablet, 1 GM PO AC PRN for ULCERS, (Reported) Tramadol HCl 50 Mg Tablet, 50 MG PO BID PRN for PAIN-MILD, (Reported) Patient Home Medication List Home Medication List Reviewed: Yes Review of Systems Constitutional: no symptoms reported, see HPI Musculoskeletal: see HPI, joint pain (Right knee) Skin: see HPI, other (Abrasion right knee) Past Fqnnyjj-Jsdfiw-Bzxelv Hx Patient Social History Tobacco Use?: Yes Substance use?: No Immunizations Up To Date Tetanus Booster (TDap): More than 5yrs PED Vaccines UTD: No First/Initial COVID19 Vaccinat: 07/20 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: [employer] Seasonal Allergies Seasonal Allergies: Yes Past Medical History Surgery/Hospitalization HX: ESOPHAGEAL VARACIES, APPY, T/A, HEP C, ETOH ABUSE, ASTHMA, COPD Surgeries: Yes (back) Abdominal, Adenoidectomy, Orthopedic, Tonsillectomy Respiratory: Yes Asthma, COPD Currently Using CPAP: No Currently Using BIPAP: No Cardiac: Yes Heart Murmur, Hypertension Neurological: Yes 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 Disorders: Yes 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 Sexually Transmitted Disease: No HIV/AIDS: No Genitourinary: No Kidney Stones Gastrointestinal: Yes (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; ALCOHOLIC GASTRITIS) Gastroesophageal Reflux, Liver Disease/Jaundice, Gastrointestinal Bleed, Esophageal Varices, Hepatitis, Cirrhosis Musculoskeletal: Yes Arthritis, Fibromyalgia, Chronic Back Pain Endocrine: No HEENT: No Cancer: No Psychosocial: Yes ADD/ADHD, Anxiety Integumentary: No Blood Disorders: No Adverse Reaction/Blood Tranf: No Family Medical History Reviewed Nursing Family Hx Alcoholism G8 SISTER Cardiovascular disease 19 FATHER Colon cancer G8 BROTHER Diabetes mellitus G8 BROTHER Drug abuse G8 SISTER FH: cancer 19 MOTHER (BRAIN) G8 BROTHER Glaucoma 19 FATHER Hypertension 19 FATHER Myocardial infarction 19 FATHER Psychosocial problem 19 FATHER G8 BROTHER G8 SISTER No Family History of: AIDS Abdominal aortic aneurysm Alzheimer's disease Arthritis Asthma Completed stroke Parkinson's disease Respiratory disorder Seizure disorder Severe allergy Thyroid disease No Pertinent Family Hx Physical Exam Vital Signs Vital Signs - First Documented 12/18/20 16:28 Temp 36.5 Pulse 67 Resp 18 B/P (MAP) 106/61 (76) Pulse Ox 94 O2 Delivery Room Air Capillary Refill : Less Than 3 Seconds Height, Weight, BMI Height: 5'4.00" Weight: 127lbs. 4.0oz. 57.032306mg; 18.00 BMI Method:Stated General Appearance: WD/WN, no apparent distress Cardiovascular: normal peripheral pulses, regular rate, rhythm Respiratory: chest non-tender, lungs clear, normal breath sounds Knees: right knee normal range of motion, right knee bone tenderness, right knee soft tissue tenderness, right knee other (Abrasions to lateral aspect of left knee. No active drainage, no erythema, warmth or induration. No effusion right knee) Neurologic/Psychiatric: no motor/sensory deficits, alert, normal mood/affect, oriented x 3 Skin: normal color, warm/dry, other (Abrasion right knee. Wound was cleaned with sterile saline, triple antibiotic ointment and Band-Aids applied.) Progress/Results/Core Measures Results/Orders My Orders Orders - PJ TREJO Naproxen Tablet (Naprosyn Tablet) (12/18/20 17:43) Vital Signs/I&O 12/18/20 12/18/20 16:28 18:45 Temp 36.5 Pulse 67 62 Resp 18 18 B/P (MAP) 106/61 (76) 116/71 Pulse Ox 94 95 O2 Delivery Room Air Blood Pressure Mean: 76 Departure Impression Primary Impression: Abrasion, right knee, initial encounter Additional Impression: Fall Qualified Codes: W19.XXXA - Unspecified fall, initial encounter Disposition: HOME, SELF-CARE Condition: Improved Departure-Patient Inst. Decision time for Depature: 18:00 Referrals: RINKU MANDEL DO (PCP/Family) Primary Care Physician Patient Instructions: Wound Care (DC) Add. Discharge Instructions: Clean wound with peroxide 3 times a day and apply triple antibiotic ointment. Take Naprosyn as prescribed. Follow-up with your primary care provider. Return to the emergency department for new, urgent healthcare problems. All discharge instructions reviewed with patient and/or family. Voiced understanding. Scripts Naproxen (Naprosyn) 500 Mg Tablet 500 MG PO BID, #30 TAB 0 Refills Prov: PJ TREJO 12/18/20 PJ TREJO Dec 18, 2020 18:14
[2020-12-18] MEDS ORDERED: NAPR-1071 PO (18:20)
[2020-12-18 18:45] VITALS: BP 116/71
== END 2020-12-18 18:45 | disposition home or self-care (01) ==
LOC: EDUNIT# 16:11 → ER 16:12
DX: S80.211A Abrasion, right knee, initial encounter (principal); J44.9 Chronic obstructive pulmonary disease, unspecified; I10 Essential (primary) hypertension; K21.9 Gastro-esophageal reflux disease without esophagitis; F41.9 Anxiety disorder, unspecified; Z79.899 Other long term (current) drug therapy; W19.XXXA Unspecified fall, initial encounter
CPT/HCPCS: 99283

== ENCOUNTER 2021-01-07 11:21 | Inpatient (IN) | payer MEDICARE, MEDICAID ==
[~2021-01-07] VITALS: Ht 160 cm; Wt 58.1 kg
[~2021-01-07 11:21] MED LIST changes: +NAPR-1071 PO
--- NOTE | 2021-01-07 11:39 | ED Respiratory ---
General Chief Complaint: COVID19 Suspect/Confirmed Stated Complaint: WEAKNESS,COUGH Source: EMS Exam Limitations: clinical condition History of Present Illness Date Seen by Provider: Jan 07, 2021 Time Seen by Provider: 11:28 Initial Comments Patient is a 55-year-old female who appears older than stated age who presents to the emergency department by ambulance this morning with a chief complaint of altered mental status, hypoxia, weakness and cough. She was reportedly found by a family member/caregiver this morning on the floor. They moved her to the couch where EMS found her. Hypoxic in the 70s on room air. Patient reportedly has a history of cirrhosis and hypertension. She is a chronic daily smoker. Unknown if the patient is Covid vaccinated. She is not a good historian secondary to her clinical condition and cannot provide details of the HPI, review of systems, past medical family or social history. She complains of feeling cold and wanting a blanket. She is very slow to answer questions. Denies pain. Has a coarse wet cough. Hypoxic on room air in the 80s, rapidly titrated up to 6 L per nasal cannula to maintain oxygen saturations at 92 to 93%. Is not normally on oxygen at home according to EMS who found her. Patient was reportedly supposed to have a paracentesis for her cirrhosis at [facility] in [place] last week but they never called to schedule the appointment so it was skipped/missed. Timing/Duration: just prior to arrival Severity: severe Modifying Factors: Improves With Albuterol Inhaler Associated Symptoms: cough Allergies and Home Medications Allergies Coded Allergies: codeine (Verified Allergy, Unknown, 11/08/19) fentanyl (Verified Adverse Reaction, Unknown, PATIENT REQUEST NOT TO HAVE IT , 11/08/19) Patient Home Medication List Home Medication List Reviewed: Yes Albuterol Sulfate (Ventolin Hfa) 18 Gm Hfa.aer.ad, 2 PUFF IH Q4H PRN for SHORTNESS OF BREATH, (Reported) Entered as Reported by: SOFIA MEDRANO on 12/05/16 1418 Alprazolam (Alprazolam) 0.5 Mg Tablet, 0.5 MG PO BID, (Reported) Entered as Reported by: SHERYL BERG on 08/16/15 1325 Amlodipine Besylate (Amlodipine Besylate) 10 Mg Tablet, 10 MG PO DAILY, (Reported) Entered as Reported by: SHERYL BERG on 08/16/15 1332 Cetirizine HCl (Cetirizine HCl) 10 Mg Tablet, 10 MG PO HS, (Reported) Entered as Reported by: ROSS SANDS on 11/30/20 155 Fluticasone Propionate (Fluticasone Propionate) 16 Gm [place].susp, 2 SPRAYS NSEACH DAILY, (Reported) Entered as Reported by: ROSS SANDS on 11/30/201552 Fluticasone/Salmeterol (Advair 250-50 Diskus) 1 Each Blst.w.dev, 1 PUFF INH BID, (Reported) Entered as Reported by: SHERYL BERG on 08/16/15 1325 Gabapentin (Neurontin) 300 Mg Capsule, 600 MG PO HS, (Reported) Entered as Reported by: ROSS SANDS on 11/30/201552 Lactulose (Lactulose) 10 Gm/15 Ml Solution, 30 ML PO TID PRN for CONSTIPATION- 3RD LINE, (Reported) Entered as Reported by: ROSS SANDS on 11/30/201552 Levothyroxine Sodium (Levothyroxine Sodium) 25 Mcg Tablet, 25 MCG PO DAILY, (Reported) Entered as Reported by: NYDIA VALENTIN on 06/24/19 0853 Naproxen (Naprosyn) 500 Mg Tablet, 500 MG PO BID Prescribed by: PJ TREJO on 12/18/20 1820 Pantoprazole Sodium (Pantoprazole Sodium) 40 Mg Tablet.dr, 40 MG PO DAILY, (Reported) Entered as Reported by: SHERYL BERG on 08/16/15 1332 Promethazine HCl (Promethazine Tablet) 25 Mg Tablet, 25 MG PO BID PRN for NAUSEA/VOMITING-2ND LINE, (Reported) Entered as Reported by: ROSS SANDS on 11/30/201552 Propranolol HCl (Propranolol HCl) 60 Mg Tablet, 60 MG PO DAILY, (Reported) Entered as Reported by: ROSS SANDS on 11/30/201552 Ropinirole HCl (Ropinirole HCl) 0.25 Mg Tablet, 0.25 MG PO HS, (Reported) Entered as Reported by: ROSS SANDS on 11/30/201552 Sucralfate (Sucralfate) 1 Gm Tablet, 1 GM PO AC PRN for ULCERS, (Reported) Entered as Reported by: ROSS SANDS on 11/30/20 5783 Tramadol HCl (Tramadol HCl) 50 Mg Tablet, 50 MG PO BID PRN for PAIN-MILD, (Reported) Entered as Reported by: SHERYL BERG on 08/16/15 1325 Review of Systems Review of Systems Constitutional: see HPI Respiratory: cough Gastrointestinal: abdominal pain : No Unable to obtain review of systems secondary to the patient's confusion/clinical condition All Other Systems Reviewed Negative Unless Noted: No Past Bwoqliu-Xrwrir-Sodjea Hx Patient Social History Tobacco Use?: Yes Smoking Status: Current Everyday Smoker Substance use?: No Alcohol Use?: No Immunizations Up To Date Tetanus Booster (TDap): More than 5yrs PED Vaccines UTD: No First/Initial COVID19 Vaccinat: unknown 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 but states she received Seasonal Allergies Seasonal Allergies: Yes Past Medical History Surgery/Hospitalization HX: cirrhosis of liver Surgeries: Yes (back) Abdominal, Adenoidectomy, Orthopedic, Tonsillectomy Respiratory: Yes Asthma, COPD Currently Using CPAP: No Currently Using BIPAP: No Cardiac: Yes Heart Murmur, Hypertension Neurological: Yes 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 Disorders: Yes 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 Sexually Transmitted Disease: No HIV/AIDS: No Genitourinary: No Kidney Stones Gastrointestinal: Yes (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; ALCOHOLIC GASTRITIS) Gastroesophageal Reflux, Liver Disease/Jaundice, Gastrointestinal Bleed, Esophageal Varices, Hepatitis, Cirrhosis Musculoskeletal: Yes Arthritis, Fibromyalgia, Chronic Back Pain Endocrine: No HEENT: No Cancer: No Psychosocial: Yes ADD/ADHD, Anxiety Integumentary: No Blood Disorders: No Adverse Reaction/Blood Tranf: No Family Medical History Alcoholism G8 SISTER Cardiovascular disease 19 FATHER Colon cancer G8 BROTHER Diabetes mellitus G8 BROTHER Drug abuse G8 SISTER FH: cancer 19 MOTHER (BRAIN) G8 BROTHER Glaucoma 19 FATHER Hypertension 19 FATHER Myocardial infarction 19 FATHER Psychosocial problem 19 FATHER G8 BROTHER G8 SISTER No Family History of: AIDS Abdominal aortic aneurysm Alzheimer's disease Arthritis Asthma Completed stroke Parkinson's disease Respiratory disorder Seizure disorder Severe allergy Thyroid disease No Pertinent Family Hx Physical Exam Vital Signs - First Documented 01/07/21 01/07/21 11:29 11:40 Temp 37.0 Pulse 83 Resp 24 B/P (MAP) 103/63 (76) Pulse Ox 91 O2 Delivery Nasal Cannula O2 Flow Rate 6.00 Capillary Refill : Height: 5'4.00" Weight: 127lbs. 4.0oz. 57.549397tt; 18.00 BMI Method:Stated General Appearance: no apparent distress, cachetic (Cachectic with protuberant, ascitic belly) Eyes: Bilateral Eye Normal Inspection, Bilateral Eye PERRL, Bilateral Eye EOMI HEENT: PERRL/EOMI, other (Extremely dry oral mucosa) Neck: full range of motion, supple Respiratory: no respiratory distress, no accessory muscle use, other (Coarse wet breath sounds left greater than right, right lung aldridge are diminished; hypoxic on room air in the upper 80s) Cardiovascular: regular rate, rhythm, other (Normal peripheral pulses) Gastrointestinal: other (Soft protuberant abdomen with ascites) Extremities: non-tender, normal inspection, no pedal edema, no calf tenderness Neurologic/Psychiatric: alert, depressed affect, disoriented x 3 Skin: warm/dry, other (Multiple abrasions noted to the bilateral lower extremity) Focused Exam Lactate Level 01/07/21 11:26: Lactic Acid Level 1.46 Lactic Acid Level Laboratory Tests Test 01/07/21 11:26 Lactic Acid Level 1.46 MMOL/L (0.50-2.00) Progress/Results/Core Measures Suspected Sepsis SIRS Temperature: Pulse: Respiratory Rate: Laboratory Tests 01/07/21 11:26: White Blood Count 9.5 Blood Pressure / Mean: 01/07/21 11:26: Lactic Acid Level 1.46 Laboratory Tests 01/07/21 11:26: Creatinine 2.24H, Platelet Count 334, Total Bilirubin 1.5H 01/07/21 11:42: INR Comment 1.3 Results/Orders Lab Results Laboratory Tests Test 01/07/21 11:26 01/07/21 11:39 01/07/21 11:41 01/07/21 11:42 Range/Units White Blood Count 9.5 4.3-11.0 10^3/uL Red Blood Count 4.13 3.80-5.11 10^6/uL Hemoglobin 12.4 11.5-16.0 g/dL Hematocrit 36 35-52 % Mean Corpuscular Volume 87 80-99 fL Mean Corpuscular Hemoglobin 30 25-34 pg Mean Corpuscular Hemoglobin Concent 34 32-36 g/dL Red Cell Distribution Width 18.7 H 10.0-14.5 % Platelet Count 334 130-400 10^3/uL Mean Platelet Volume 9.9 9.0-12.2 fL Immature Granulocyte % (Auto) 1 % Neutrophils (%) (Auto) 73 42-75 % Lymphocytes (%) (Auto) 16 12-44 % Monocytes (%) (Auto) 8 0-12 % Eosinophils (%) (Auto) 2 0-10 % Basophils (%) (Auto) 1 0-10 % Neutrophils # (Auto) 7.0 1.8-7.8 10^3/uL Lymphocytes # (Auto) 1.5 1.0-4.0 10^3/uL Monocytes # (Auto) 0.8 0.0-1.0 10^3/uL Eosinophils # (Auto) 0.2 0.0-0.3 10^3/uL Basophils # (Auto) 0.1 0.0-0.1 10^3/uL Immature Granulocyte # (Auto) 0.1 0.0-0.1 10^3/uL Sodium Level 128 L 135-145 MMOL/L Potassium Level 2.7 L 3.6-5.0 MMOL/L Chloride Level 87 L 98-107 MMOL/L Carbon Dioxide Level 27 21-32 MMOL/L Anion Gap 14 5-14 MMOL/L Blood Urea Nitrogen 10 7-18 MG/DL Creatinine 2.24 H 0.60-1.30 MG/DL Estimat Glomerular Filtration Rate 23 BUN/Creatinine Ratio 4 Glucose Level 80 70-105 MG/DL Lactic Acid Level 1.46 0.50-2.00 MMOL/L Calcium Level 7.7 L 8.5-10.1 MG/DL Corrected Calcium 9.0 8.5-10.1 MG/DL Total Bilirubin 1.5 H 0.1-1.0 MG/DL Aspartate Amino Transf (AST/SGOT) 31 5-34 U/L Alanine Aminotransferase (ALT/SGPT) 10 0-55 U/L Alkaline Phosphatase 58 40-136 U/L Troponin I < 0.028 <0.028 NG/ML B-Type Natriuretic Peptide 213.9 H <100.0 PG/ML Total Protein 6.7 6.4-8.2 GM/DL Albumin 2.4 L 3.2-4.5 GM/DL Procalcitonin 0.07 <0.10 NG/ML Influenza Type A (RT-PCR) Not Detected Not Detecte Influenza Type B (RT-PCR) Not Detected Not Detecte SARS-CoV-2 RNA (RT-PCR) Not Detected Not Detecte Ammonia 78 H 11-32 UMOL/L Blood Gas Puncture Site LR Blood Gas Patient Temperature 37.0 Arterial Blood pH 7.44 H 7.37-7.43 Arterial Blood Partial Pressure CO2 43 35-45 MMHG Arterial Blood Partial Pressure O2 71 L 79-93 MMHG Arterial Blood HCO3 29 H 23-27 MMOL/L Arterial Blood Total CO2 30.3 21.0-31.0 MMOL/L Arterial Blood Oxygen Saturation 93 L 94-100 % Arterial Blood Base Excess 5.0 H -2.5-2.5 MMOL/L Ernesto Test YES-POS Blood Gas Ventilator Setting NO Blood Gas Inspired Oxygen 6 Prothrombin Time 16.5 H 12.2-14.7 SEC INR Comment 1.3 0.8-1.4 Activated Partial Thromboplast Time 40 H 24-35 SEC Test 01/07/21 11:49 Range/Units Urine Color DARK YELLOW Urine Clarity SL CLOUDY Urine pH 5.5 5-9 Urine Specific [place] 1.015 L 1.016-1.022 Urine Protein NEGATIVE NEGATIVE Urine Glucose (UA) NEGATIVE NEGATIVE Urine Ketones NEGATIVE NEGATIVE Urine Nitrite NEGATIVE NEGATIVE Urine Bilirubin 1+ H NEGATIVE Urine Urobilinogen 0.2 < = 1.0 MG/DL Urine Leukocyte Esterase NEGATIVE NEGATIVE Urine RBC (Auto) NEGATIVE NEGATIVE Urine RBC NONE /HPF Urine WBC NONE /HPF Urine Crystals PRESENT H /LPF Urine Amorphous Sediment FEW RIKKI URATES H /LPF Urine Bacteria FEW H /HPF Urine Casts PRESENT /LPF Urine Hyaline Casts 25-50 H /LPF Urine Mucus NEGATIVE /LPF Urine Culture Indicated CULTURE PENDING My Orders Orders - LEANN FAUSTIN MD Cbc With Automated Diff (01/07/21 11:34) Comprehensive Metabolic Panel (01/07/21 11:34) Blood Culture (01/07/21 11:34) Sputum Culture (01/07/21 11:34) Urinalysis (01/07/21 11:34) Urine Culture (01/07/21 11:34) Protime With Inr (01/07/21 11:34) Partial Thromboplastin Time (01/07/21 11:34) Chest 1 View, Ap/Pa Only (01/07/21 11:34) Ed Iv/Invasive Line Start (01/07/21 11:34) Ed Iv/Invasive Line Start (01/07/21 11:34) Vital Signs Adult Sepsis Patie Q15M (01/07/21 11:34) O2 (01/07/21 11:34) Remove Rings In Anticipation O (01/07/21 11:34) Lactic Acid Analyzer (01/07/21 11:34) Procalcitonin (Pct) (01/07/21 11:34) Ekg Tracing (01/07/21 11:34) BNP (01/07/21 11:34) Troponin I (01/07/21 11:34) Covid 19 Inhouse Test (01/07/21 11:39) Influenza A And B By Pcr (01/07/21 11:39) Arterial Blood Gas (01/07/21 11:44) Ammonia (01/07/21 11:48) Woods Cath (01/07/21 11:48) Potassium Cl 10meq/50ml Ivpb (Kcl 10 Meq (01/07/21 12:00) Ns Iv 1000 Ml (Sodium Chloride 0.9%) (01/07/21 12:15) Cefepime Injection (Maxipime Injection) (01/07/21 12:30) Body Fluid Culture (01/07/21 13:12) Total Protein,Body Fluid (01/07/21 13:12) Glucose,Body Fluid (01/07/21 13:12) Cytology Requistion | Nursing (01/07/21 13:12) Medications Given in ED Current Medications Medications Dose Ordered Sig/Pino Route Start Time Stop Time Status Last Admin Dose Admin Cefepime HCl 1000 mg/Sterile Water 10 ml @ 200 mls/hr ONCE ONCE IV 01/07/21 12:30 01/07/21 12:32 DC 01/07/21 12:40 200 MLS/HR Vital Signs/I&O 01/07/21 01/07/21 01/07/21 11:29 11:40 12:42 Temp 37.0 Pulse 83 Resp 24 B/P (MAP) 103/63 (76) Pulse Ox 91 94 98 O2 Delivery Nasal Cannula OxyMask O2 Flow Rate 6.00 6.00 10.00 Capillary Refill : Progress Note : Time: 13:[address] Stephenson to ER for paracentesis. Patient unable to consent due to encephalopathy/sepsis/hypoxia, therefore procedure done due to medical necessity to further evaluate for etiology of sepsis; ie rule out spontaneous bacterial peritonitis and also to remove fluids to hopefully alleviate increased work of breathing ECG Initial ECG Impression Date: Jan 07, 2021 Initial ECG Impression Time: 11:57 Initial ECG Rate: 81 Initial ECG Rhythm: Normal Sinus Initial ECG Intervals IN 158 QRS 94 QTc 558 Initial ECG Impression: Nonspecific Changes Diagnostic Imaging Diagonstic Imaging: Xray Plain Films/CT/US/NM/MRI: chest Comments [facility], [place] NAME: AMANDA TILLMAN [facility] REC#: [id number] PT STATUS: REG ER : 1965 PHYSICIAN: LEANN FAUSTIN MD ADMIT DATE: 01/07/21/ER Draft Date of Exam:01/07/21 CHEST 1 VIEW, AP/PA ONLY INDICATION: Sepsis. EXAMINATION: Chest from 01/07/2021 COMPARISON: 10/11/2020 FINDINGS: Single view of the chest. The right hemidiaphragm is slightly elevated with adjacent atelectasis. There are no significant effusions. There is no pneumothorax. Heart and pulmonary vasculature normal. Osseous structures intact. IMPRESSION: 1. Minimal right base atelectasis. Dictated on workstation # [id number] Dict: 01/07/21 1222 Trans: 01/07/21 1225 [facility] [id number] Interpreted by: RADHA PEÑALOZA MD Electronically signed by: Departure Communication (Admissions) Time/Spoke to Admitting Phy: 12:45 Dr Persaud Time/Spoke to Consulting Phy: 13:[address] Stephenson; here in the ED to evaluate patient 1310 Impression Primary Impression: Altered mental status Qualified Codes: R41.0 - Disorientation, unspecified Additional Impressions: Hepatic encephalopathy Acute renal failure Qualified Codes: N17.9 - Acute kidney failure, unspecified Hypokalemia Disposition: ADMITTED INPATIENT Condition: Stable Admissions Decision to Admit Reason: Admit from ER (General) Decision to Admit/Date: Jan 07, 2021 Time/Decision to Admit Time: 11:59 Departure-Patient Inst. Referrals: RINKU MANDEL DO (PCP/Family) Primary Care Physician LEANN FAUSTIN MD Jan 07, 2021 11:39
[2021-01-07 11:43] LABS: BASOPHILS # (AUTO) 0.1 10^3/uL (0.0-0.1); BASOPHILS % (AUTO) 1 % (0-10); EOSINOPHILS # (AUTO) 0.2 10^3/uL (0.0-0.3); EOSINOPHILS % (AUTO) 2 % (0-10); HEMATOCRIT 36 % (35-52); HEMOGLOBIN 12.4 g/dL (11.5-16.0); LYMPHOCYTES # (AUTO) 1.5 10^3/uL (1.0-4.0); LYMPHOCYTES % (AUTO) 16 % (12-44); MEAN CORPUSCULAR HEMOGLOBIN 30 pg (25-34); MEAN CORPUSCULAR HGB CONC 34 g/dL (32-36); MEAN CORPUSCULAR VOLUME 87 fL (80-99); MEAN PLATELET VOLUME 9.9 fL (9.0-12.2); MONOCYTES # (AUTO) 0.8 10^3/uL (0.0-1.0); MONOCYTES % (AUTO) 8 % (0-12); NEUTROPHILS % (AUTO) 73 % (42-75); PLATELET COUNT 334 10^3/uL (130-400); WHITE BLOOD COUNT 9.5 10^3/uL (4.3-11.0)
[2021-01-07 11:46] LABS: ALBUMIN 2.4 GM/DL (3.2-4.5); CHLORIDE 87 MMOL/L (98-107); POTASSIUM 2.7 MMOL/L (3.6-5.0); SODIUM 128 MMOL/L (135-145)
[2021-01-07 11:47] LABS: CALCIUM 7.7 MG/DL (8.5-10.1)
[2021-01-07 11:49] LABS: GLUCOSE 80 MG/DL (70-105); TOTAL PROTEIN 6.7 GM/DL (6.4-8.2)
[2021-01-07 11:50] LABS: CARBON DIOXIDE 27 MMOL/L (21-32)
[2021-01-07 11:51] LABS: BILIRUBIN,TOTAL 1.5 MG/DL (0.1-1.0)
[2021-01-07 11:52] LABS: ALKALINE PHOSPHATASE 58 U/L (40-136); CREATININE SERUM 2.24 MG/DL (0.60-1.30); GFR ESTIMATED 23
[2021-01-07 11:53] LABS: BUN/CREATININE RATIO 4
[2021-01-07 11:55] LABS: ALANINE AMINOTRANSFERASE 10 U/L (0-55)
[2021-01-07 12:02] LABS: BILIRUBIN,URINE 1+ (NEGATIVE); CLARITY,URINE SL CLOUDY; COLOR,URINE DARK YELLOW; GLUCOSE, URINE (UA) NEGATIVE (NEGATIVE); KETONES,URINE NEGATIVE (NEGATIVE); LEUKOCYTE ESTERASE ,URINE NEGATIVE (NEGATIVE); NITRITE,URINE NEGATIVE (NEGATIVE); PH,URINE 5.5 (5-9); PROTEIN,URINE NEGATIVE (NEGATIVE)
[2021-01-07 12:11] LABS: ABG OXYGEN SATURATION 93 % (94-100); ABG PCO2 43 MMHG (35-45); ABG PH 7.44 (7.37-7.43); ABG PO2 71 MMHG (79-93); ABG TCO2 30.3 MMOL/L (21.0-31.0)
[2021-01-07 12:13] LABS: ALLENS TEST YES-POS; INSPIRED O2 6
[2021-01-07 12:14] LABS: INR 1.3 (0.8-1.4); PROTHROMBIN TIME PATIENT 16.5 SEC (12.2-14.7)
[2021-01-07 12:14] LABS: VENTILATOR NO
[2021-01-07] MEDS ORDERED: NS IV 1000 ML 1,000 ML IV SCH (12:15)
[2021-01-07 12:18] LABS: AMORPHOUS SEDIMENT,UR FEW AMOR URATES /LPF; BACTERIA,URINE FEW /HPF; HYALINE CASTS, URINE 25-50 /LPF
[2021-01-07] MEDS: POTASSIUM CL 10MEQ/50ML IVPB 50 ML IV SCH ×2 (12:18→13:23)
--- NOTE | 2021-01-07 12:25 | Diagnostic Imaging Report ---
INDICATION: Sepsis. EXAMINATION: Chest from 01/07/2021 COMPARISON: 10/11/2020 FINDINGS: Single view of the chest. The right hemidiaphragm is slightly elevated with adjacent atelectasis. There are no significant effusions. There is no pneumothorax. Heart and pulmonary vasculature normal. Osseous structures intact. IMPRESSION: 1. Minimal right base atelectasis. Dictated by: Dictated on workstation # [id number]
[2021-01-07] MEDS ORDERED: CEFEPIME INJECTION 1,000 MG in WATER (STERILE) FOR INJECTION 10 ML IV ONE (12:30)
[2021-01-07 14:13] LABS: TOTAL PROTEIN,BODY FLUID 1.9 G/DL
[2021-01-07 14:16] LABS: BODY FLUID COLOR YELLOW; BODY FLUID SOURCE PERITON
[2021-01-07 14:17] LABS: BODY FLUID APPEARENCE SLT CLDY; BODY FLUID RBC COUNT 250 /uL; BODY FLUID WBC TOTAL COUNT 255 /uL
[2021-01-07 14:30] LABS: BF OTHER CELLS 4 %; LYMPHOCYTES,BODY FLUID 43 %
[2021-01-07] MEDS ORDERED: CATHETER FLUSH 10 ML SYR IV PRN ×2 (16:30)
[2021-01-07] MEDS ORDERED: ONDA4TAB11 PO (16:38)
[2021-01-07] MEDS ORDERED: RIFA550T PO (16:38)
[2021-01-07] MEDS ORDERED: THIA100T80 PO (16:38)
[2021-01-07] MEDS ORDERED: SUCR1TAB PO (16:38)
[2021-01-07] MEDS ORDERED: SPIR50TA4 PO (16:38)
[2021-01-07] MEDS ORDERED: FOLI1TAB33 PO (16:38)
[2021-01-07] MEDS ORDERED: PENI500T PO (16:38)
[2021-01-07] MEDS ORDERED: FURO20TA4 PO (16:38)
[2021-01-07] MEDS: LACTULOSE SYRUP 10GM/15ML (ENULOSE) 30ML UDC PO SCH ×4 (16:51→23:38)
[2021-01-07] MEDS: NS IV 1000 ML 1,000 ML IV SCH (16:51)
[2021-01-07] MEDS ORDERED: RT-ALBUTEROL HFA 8.5 GM INHALER IH PRN (17:00)
--- NOTE | 2021-01-07 17:45 | Diagnostic Imaging Report ---
PROCEDURE: CT head without contrast. TECHNIQUE: Multiple contiguous axial images were obtained through the brain without the use of intravenous contrast. Auto Exposure Controls were utilized during the CT exam to meet ALARA standards for radiation dose reduction. INDICATION: Altered mental status. COMPARISON: Comparison is made to study of 01/18/2016. FINDINGS: Ventricles and sulci are mildly prominent with prominent cerebrospinal fluid space in the posterior fossa. There is no evidence of hemorrhage. No abnormal mass effect or shift of midline structures is identified. Calvarium is intact, and the visualized paranasal sinuses are clear. Atherosclerotic calcification is seen within the distal internal carotid arteries. IMPRESSION: Mild overall volume loss in the brain without evidence of acute intracranial abnormality. Dictated by: Dictated on workstation # [id number]
--- NOTE | 2021-01-07 18:02 | History & Physical-Hospitalist ---
History of Present Illness HPI/Chief Complaint Cora Ahumada is a 55 year old female with cirrhosis who presented with altered mental status. She is a poor historian due to her clinical condition. She was reportedly found on the floor by a family member or caregiver. She was weak and hypoxic. Her ER workup revealed hepatic encephalopathy and possible pneumonia. She was started on lactulose and antibiotics. She had a diagnostic paracentesis which was negative for spontaneous bacterial peritonitis. 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 Patients Allergies have been reviewed. Allergies Allergies Coded Allergies codeine (Verified Allergy, Unknown, 11/08/19) fentanyl (Verified Adverse Reaction, Unknown, PATIENT REQUEST NOT TO HAVE IT , 11/08/19) Past Uaqthyt-Wftpxs-Tnvvuk Hx Patient Social History Tobacco Use?: Yes Tobacco type used: Cigarettes Smoking Status: Current Everyday Smoker Substance use?: No Alcohol Use?: No Additional Alcohol Comments: PT HAS CONFLICTING STATEMENTS. LAST DRINK TODAY, DOESN'T DRINK ANYMORE. Pt feels they are or have been: Unable to obtain Immunizations Up To Date Date of Influenza Vaccine: Jan 16, 2019 First/Initial COVID19 Vaccinat: unknown Second COVID19 Vaccination Everardo: unknown Tetanus Booster (TDap): Unknown Hepatitis A: No Hepatitis B: No PED Vaccines UTD: No Date of Pneumonia Vaccine: Jul 22, 2008 Seasonal Allergies Seasonal Allergies: Yes Current Status status: No status: No Advance Directives: Unable to obtain Communicates: Verbally Primary Language: Austrian Preferred Spoken Language: Austrian Is interpretation needed?: No Past Medical History Surgeries: Abdominal, Adenoidectomy, Orthopedic, Tonsillectomy Asthma, COPD Currently Using CPAP: No Currently Using BIPAP: No Heart Murmur, 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 Sexually Transmitted Disease: No HIV/AIDS: No Kidney Stones Gastroesophageal Reflux, Liver Disease/Jaundice, Gastrointestinal Bleed, Esophageal Varices, Hepatitis, Cirrhosis Arthritis, Fibromyalgia, Chronic Back Pain ADD/ADHD, Anxiety Blood Disorders: No Adverse Reaction/Blood Tranf: No Family Medical History Alcoholism G8 SISTER Cardiovascular disease 19 FATHER Colon cancer G8 BROTHER Diabetes mellitus G8 BROTHER Drug abuse G8 SISTER FH: cancer 19 MOTHER (BRAIN) G8 BROTHER Glaucoma 19 FATHER Hypertension 19 FATHER Myocardial infarction 19 FATHER Psychosocial problem 19 FATHER G8 BROTHER G8 SISTER No Family History of: AIDS Abdominal aortic aneurysm Alzheimer's disease Arthritis Asthma Completed stroke Parkinson's disease Respiratory disorder Seizure disorder Severe allergy Thyroid disease No Pertinent Family Hx Review of Systems ROS-Unable to Obtain: encephalopathy Constitutional: see HPI Physical Exam Physical Exam Vital Signs Vital Signs - First Documented 01/07/21 01/07/21 11:29 11:40 Temp 37.0 Pulse 83 Resp 24 B/P (MAP) 103/63 (76) Pulse Ox 91 O2 Delivery Nasal Cannula O2 Flow Rate 6.00 Capillary Refill : Less Than 3 Seconds Height, Weight, BMI Height: 5'4.00" Weight: 127lbs. 4.0oz. 57.158368ib; 25.66 BMI Method:Stated General Appearance: No Apparent Distress, Chronically ill HEENT: PERRL/EOMI, Pharynx Normal Neck: Normal Inspection, Supple Respiratory: Lungs Clear, Normal Breath Sounds, No Respiratory Distress Cardiovascular: Regular Rate, Rhythm, No Murmur Gastrointestinal: Normal Bowel Sounds, Non Tender, Soft, Distended Extremity: Normal Inspection, Non Tender, Pedal Edema Neurologic/Psychiatric: Disoriented, Other (lethargic) Skin: Normal Color, Warm/Dry Results Results/Procedures Labs Laboratory Tests 01/07/21 11:26 Patient resulted labs reviewed. Imaging: Reviewed Imaging Report Assessment/Plan Admission Diagnosis Decompensated hepatic cirrhosis Admission Status: Inpatient Order (span 2 midnights) Reason for Inpatient Admission: Hepatic encephalopathy Assessment and Plan Decompensated hepatic cirrhosis Hepatic encephalopathy Ascites Acute respiratory failure with hypoxia Acute kidney injury CT Head negative Paracentesis negative for SBP Ammonia elevated Begin Lactulose Chest xray with possible right lower lobe pneumonia Started on Cefepime Creatinine elevated IV fluids Concern for hepatorenal syndrome May need albumin TeleICU consulted DVT prophylaxis: Heparin Diagnosis/Problems Diagnosis/Problems (1) Decompensated hepatic cirrhosis Status: Acute (2) Hepatic encephalopathy Status: Acute (3) Abdominal ascites Status: Acute (4) Acute renal failure Status: Acute Qualifiers: Acute renal failure type: unspecified Qualified Codes: N17.9 - Acute kidney failure, unspecified GERALD GAR MD Jan 07, 2021 18:02
[2021-01-07] MEDS: RT-ALBUTEROL HFA 8.5 GM INHALER IH SCH ×2 (18:29→23:22)
--- NOTE | 2021-01-07 19:13 | Tele-ICU Consult ---
History of Present Illness History of Present Illness Date Seen by Provider: Jan 07, 2021 Time Seen by Provider: 19:13 Date of Admission 55 yo F with ascites, Hx of cirrohsis, brought to ED for AMS, hypoxia-responded to oxygen by nasal cannula ammonia 78 T bili 1.5 COVID PCR neg Had paracentesis in ED WBC 255, RBC 250 half lymphs, TP 1.9 started on po lactulose, IV cefepime for possiblel SBP Now a little more awake, oriented to self, no SOB continue lacutolse, would do CT head Praveen Ortega MD Allergies and Home Medications Allergies Coded Allergies: codeine (Verified Allergy, Unknown, 11/08/19) fentanyl (Verified Adverse Reaction, Unknown, PATIENT REQUEST NOT TO HAVE IT , 11/08/19) Home Medications Amlodipine Besylate 10 Mg Tablet, 10 MG PO DAILY, (Reported) Cetirizine HCl 10 Mg Tablet, 10 MG PO HS, (Reported) Fluticasone/Salmeterol 1 Each Blst.w.dev, 1 PUFF INH BID, (Reported) Folic Acid 1 Mg Tablet, 1 MG PO DAILY Prescribed by: MIKE PIMENTEL on 01/07/211637 Furosemide 20 Mg Tablet, 20 MG PO DAILY Prescribed by: MIKE PIMENTEL on 01/07/211637 Gabapentin 300 Mg Capsule, 600 MG PO HS, (Reported) TAKES 2 (300MG) CAPS Levothyroxine Sodium 25 Mcg Tablet, 25 MCG PO DAILY, (Reported) Naproxen 500 Mg Tablet, 500 MG PO BID Prescribed by: PJ TREJO on 12/18/20 1820 Ondansetron 4 Mg Tab.rapdis, 4 MG PO Q8H PRN for NAUSEA/VOMITING Prescribed by: MIKE PIMENTEL on 01/07/211637 Pantoprazole Sodium 40 Mg Tablet.dr, 40 MG PO DAILY, (Reported) Penicillin V Potassium 500 Mg Tablet, 500 MG PO QID Prescribed by: MIKE PIMENTEL on 01/07/211637 Propranolol HCl 60 Mg Tablet, 60 MG PO DAILY, (Reported) Rifaximin 550 Mg Tablet, 550 MG PO BID Prescribed by: MIKE PIMENTEL on 01/07/211637 Ropinirole HCl 0.25 Mg Tablet, 0.25 MG PO HS, (Reported) Spironolactone 50 Mg Tablet, 50 MG PO DAILY Prescribed by: MIKE PIMENTEL on 01/07/21 1638 Sucralfate 1 Gm Tablet, 1 GM PO ACHS Prescribed by: MIKE PIMENTEL on 01/07/21 1638 Thiamine HCl 100 Mg Tablet, 100 MG PO DAILY Prescribed by: MIKE PIMENTEL on 01/07/21 1638 Tramadol HCl 50 Mg Tablet, 50 MG PO BID PRN for PAIN-MILD, (Reported) Past Medical/Social/Family Hx Patient Social History Tobacco Use?: Yes Tobacco type used: Cigarettes Smoking Status: Current Everyday Smoker Substance use?: No Alcohol Use?: No PT HAS CONFLICTING STATEMENTS. LAST DRINK TODAY, DOESN'T DRINK ANYMORE. Pt stated abuse/neglect: Unable to obtain Immunizations Up To Date Influenza Vaccine Up-to-Date: No; Not Current First/Initial COVID19 Vaccinat: unknown Second COVID19 Vaccination Everardo: unknown Tetanus Booster (TDap): Unknown Hepatitis A: No Hepatitis B: No TB Skin Test: None Date of Pneumonia Vaccine: Jul 22, 2008 Current Status status: No status: No Advance Directives: Unable to obtain Communicates: Verbally Primary Language: Kyrgyz Preferred Spoken Language: Kyrgyz Is interpretation needed?: No Review of Systems Constitutional: see HPI EENTM: see HPI Respiratory: see HPI Cardiovascular: see HPI Gastrointestinal: see HPI Genitourinary: see HPI Musculoskeletal: see HPI Skin: see HPI Psychiatric/Neurological: See HPI Sepsis Event Evaluation Height, Weight, BMI Height: 5'4.00" Weight: 127lbs. 4.0oz. [id number]; 25.66 BMI Method:Stated Exam Exam Patient acknowledged, consented, and participated in this virtual visit which was conducted using real time audio/video Vital Signs Date Time Temp Pulse Resp B/P (MAP) Pulse Ox O2 Delivery O2 Flow Rate FiO2 01/07/21 18:29 95 OxyMask 6.00 01/07/21 18:00 78 24 101/52 97 OxyMask 10.00 01/07/21 17:00 81 16 115/71 96 OxyMask 10.00 01/07/21 16:30 36.3 01/07/21 16:23 82 12 106/60 98 OxyMask 10.00 01/07/21 16:20 37.0 85 24 113/71 95 OxyMask 10.00 10.00 01/07/21 16:15 84 01/07/21 14:40 97 OxyMask 10.00 01/07/21 12:42 98 OxyMask 10.00 01/07/21 11:40 94 Nasal Cannula 6.00 01/07/21 11:29 37.0 83 24 103/63 (76) 91 6.00 Height & Weight Height: 5'4.00" Weight: 127lbs. 4.0oz. 57.194068li; 25.66 BMI Method:Stated General Appearance: Mild Distress Respiratory: Chest Non Tender, Lungs Clear Capillary Refill: Less Than 3 Seconds Gastrointestinal: distended, other (Soft protuberant abdomen with ascites) Neurologic/Psychiatric: Other (oriented to name only) Results Lab Laboratory Tests 01/07/21 11:26 Assessment/Plan Assessment/Plan 55 yo F with ascites, Hx of cirrohsis, brought to ED for AMS, hypoxia-responded to oxygen by nasal cannula ammonia 78 T bili 1.5 COVID PCR neg Had paracentesis in ED WBC 255, RBC 250 half lymphs, TP 1.9 started on po lactulose, IV cefepime for possiblel SBP Now a little more awake, oriented to self, no SOB continue lacutolse, would do CT head Praveen Ortega MD Critical Care: Critically Ill Patient Time spent with patient (mins): 25 LYNN ORTEGA MD Jan 07, 2021 19:13
--- NOTE | 2021-01-07 19:36 | Consultation - Surgery ---
History of Present Illness History of Present Illness Patient Consulted On(clair/time) 01/07/21 13:30 Date Seen by Provider: Jan 07, 2021 Time Seen by Provider: 13:30 History of Present Illness Consult requested by Dr. Persaud for paracentesis to rule out SBP. Patient is a 55-year-old female who was brought by EMS after being found with weakness cough and hypoxia. Patient with altered mental status and unable to provide any information at this time, due to current condition. Patient known to have cirrhosis and needing to have paracentesis previously. Patient needing ultrasound-guided paracentesis site from medical necessity. Patient with hypoxia dropping to 80s SPO2 on room air. Patient with cough and some slight shortness of breath. Allergies and Home Medications Allergies Coded Allergies: codeine (Verified Allergy, Unknown, 11/08/19) fentanyl (Verified Adverse Reaction, Unknown, PATIENT REQUEST NOT TO HAVE IT , 11/08/19) Patient Home Medication List Home Medication List Reviewed: Yes Amlodipine Besylate (Amlodipine Besylate) 10 Mg Tablet, 10 MG PO DAILY, (Reported) Entered as Reported by: SHERYL BERG on 08/16/15 1332 Last Action: Reviewed Cetirizine HCl (Cetirizine HCl) 10 Mg Tablet, 10 MG PO HS, (Reported) Entered as Reported by: ROSS SANDS on 11/30/20 9293 Last Action: Reviewed Fluticasone/Salmeterol (Advair 250-50 Diskus) 1 Each Blst.w.dev, 1 PUFF INH BID, (Reported) Entered as Reported by: SHERYL BERG on 08/16/15 1325 Last Action: Reviewed Folic Acid (Folic Acid) 1 Mg Tablet, 1 MG PO DAILY Prescribed by: MIKE PIMENTEL on 01/07/21 1638 Last Action: Reviewed Furosemide (Furosemide) 20 Mg Tablet, 20 MG PO DAILY Prescribed by: MIKE PIMENTEL on 01/07/21 1638 Last Action: Reviewed Gabapentin (Neurontin) 300 Mg Capsule, 600 MG PO HS, (Reported) Entered as Reported by: ROSS SANDS on 11/30/20 1553 Last Action: Reviewed Levothyroxine Sodium (Levothyroxine Sodium) 25 Mcg Tablet, 25 MCG PO DAILY, (Reported) Entered as Reported by: NYDIA VALENTIN on 06/24/19 7853 Last Action: Reviewed Naproxen (Naprosyn) 500 Mg Tablet, 500 MG PO BID Prescribed by: PJ TREJO on 12/18/20 1820 Last Action: Reviewed Ondansetron (Ondansetron Odt) 4 Mg Tab.rapdis, 4 MG PO Q8H PRN for NAUSEA/VOMITING Prescribed by: MIKE PIMENTEL on 01/07/21 163 Last Action: Reviewed Pantoprazole Sodium (Pantoprazole Sodium) 40 Mg Tablet.dr, 40 MG PO DAILY, (Reported) Entered as Reported by: SHERYL BERG on 08/16/15 1332 Last Action: Reviewed Penicillin V Potassium (Penicillin V Potassium) 500 Mg Tablet, 500 MG PO QID Prescribed by: MIKE PIMENTEL on 01/07/211637 Last Action: Reviewed Propranolol HCl (Propranolol HCl) 60 Mg Tablet, 60 MG PO DAILY, (Reported) Entered as Reported by: ROSS SANDS on 11/30/20 1553 Last Action: Reviewed Rifaximin (Xifaxan) 550 Mg Tablet, 550 MG PO BID Prescribed by: MIKE PIMENTEL on 01/07/211637 Last Action: Reviewed Ropinirole HCl (Ropinirole HCl) 0.25 Mg Tablet, 0.25 MG PO HS, (Reported) Entered as Reported by: ROSS SANDS on 11/30/20 155 Last Action: Reviewed Spironolactone (Spironolactone) 50 Mg Tablet, 50 MG PO DAILY Prescribed by: MIKE PIMENTEL on 01/07/211637 Last Action: Reviewed Sucralfate (Sucralfate) 1 Gm Tablet, 1 GM PO ACHS Prescribed by: MIKE PIMNETEL on 01/07/211637 Last Action: Reviewed Thiamine HCl (Vitamin B-1) 100 Mg Tablet, 100 MG PO DAILY Prescribed by: MIKE PIMENTEL on 01/07/211637 Last Action: Reviewed Tramadol HCl (Tramadol HCl) 50 Mg Tablet, 50 MG PO BID PRN for PAIN-MILD, (Reported) Entered as Reported by: SHERYL BERG on 08/16/15 1325 Last Action: Reviewed Discontinued Medications Albuterol Sulfate (Ventolin Hfa) 18 Gm Hfa.aer.ad, 2 PUFF IH Q4H PRN for SHORTNESS OF BREATH, (Reported) Discontinued Reason: No Longer Taking Entered as Reported by: SOFIA MEDRANO on 12/05/16 1418 Last Action: Discontinued Alprazolam (Alprazolam) 0.5 Mg Tablet, 0.5 MG PO BID, (Reported) Discontinued Reason: No Longer Taking Entered as Reported by: SHERYL BERG on 08/16/15 1325 Last Action: Discontinued Fluticasone Propionate (Fluticasone Propionate) 16 Gm [place].susp, 2 SPRAYS NSEACH DAILY, (Reported) Discontinued Reason: No Longer Taking Entered as Reported by: ROSS SANDS on 11/30/20 155 Last Action: Discontinued Lactulose (Lactulose) 10 Gm/15 Ml Solution, 30 ML PO TID PRN for CONSTIPATION- 3RD LINE, (Reported) Discontinued Reason: No Longer Taking Entered as Reported by: ROSS SANDS on 11/30/201552 Last Action: Discontinued Promethazine HCl (Promethazine Tablet) 25 Mg Tablet, 25 MG PO BID PRN for NAUSEA/VOMITING-2ND LINE, (Reported) Discontinued Reason: No Longer Taking Entered as Reported by: ROSS SANDS on 11/30/20 697 Last Action: Discontinued Past Hvxqlro-Zuoypm-Hyyvew Hx Patient Social History Drug of Choice: Cannabis Smoking Status: Current Everyday Smoker Type Used: Cigarettes 2nd Hand Smoke Exposure: Yes Recent Hopitalizations: No Alcohol Use?: No Have you traveled recently?: Unable to obtain Immunizations Up To Date Tetanus Booster (TDap): More than 5yrs PED Vaccines UTD: No Date of Pneumonia Vaccine: Jul 22, 2008 Date of Influenza Vaccine: Jan 16, 2019 Seasonal Allergies Seasonal Allergies: Yes Surgeries History of Surgeries: Yes (back) Surgeries: Abdominal, Adenoidectomy, Orthopedic, Tonsillectomy Respiratory History of Respiratory Disorde: Yes Respiratory Disorders: Asthma, COPD Cardiovascular History of Cardiac Disorders: Yes Cardiac Disorders: Heart Murmur, Hypertension Neurological History of Neurological Disord: Yes 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 System Hx 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 Disorders: Yes Sexually Transmitted Disease: No HIV/AIDS: No 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 Disorders: 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 Genitourinary History of Genitourinary Disor: No Genitourinary Disorders: Kidney Stones Gastrointestinal History of Gastrointestinal Di: Yes (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; ALCOHOLIC GASTRITIS) Gastrointestinal Disorders: Gastroesophageal Reflux, Liver Disease/Jaundice, Gastrointestinal Bleed, Esophageal Varices, Hepatitis, Cirrhosis Musculoskeletal History of Musculoskeletal Dis: Yes Musculoskeletal Disorders: Arthritis, Fibromyalgia, Chronic Back Pain Endocrine History of Endocrine Disorders: No HEENT History of HEENT Disorders: No Cancer History of Cancer: No Psychosocial History of Psychiatric Problem: Yes Behavioral Health Disorders: ADD/ADHD, Anxiety Integumentary History of Skin or Integumenta: No Blood Transfusions History of Blood Disorders: No Adverse Reaction to a Blood Tr: No Reviewed Nursing Assessment Reviewed/Agree w Nursing PMH: Yes Family Medical History Significant Family History: No Pertinent Family Hx Family Medial History: Alcoholism G8 SISTER Cardiovascular disease 19 FATHER Colon cancer G8 BROTHER Diabetes mellitus G8 BROTHER Drug abuse G8 SISTER FH: cancer 19 MOTHER (BRAIN) G8 BROTHER Glaucoma 19 FATHER Hypertension 19 FATHER Myocardial infarction 19 FATHER Psychosocial problem 19 FATHER G8 BROTHER G8 SISTER No Family History of: AIDS Abdominal aortic aneurysm Alzheimer's disease Arthritis Asthma Completed stroke Parkinson's disease Respiratory disorder Seizure disorder Severe allergy Thyroid disease Review of Systems-General ROS-Unable to Obtain: Patient unable to provide due to condition Physical Exam-General Problems Physical Exam Vital Signs Vital Signs - First Documented 01/07/21 01/07/21 11:29 11:40 Temp 37.0 Pulse 83 Resp 24 B/P (MAP) 103/63 (76) Pulse Ox 91 O2 Delivery Nasal Cannula O2 Flow Rate 6.00 Capillary Refill : Less Than 3 Seconds General Appearance: cachetic, thin, other (Chronically ill) HEENT: PERRL/EOMI, other (Dry oral mucosa) Neck: non-tender, supple Respiratory: chest non-tender, other (Wet cough, equal chest rise) Cardiovascular: regular rate, rhythm, no JVD Gastrointestinal: soft, distended, other (Fluid wave) Rectal: deferred Back: no CVA tenderness, no vertebral tenderness Extremities: non-tender, no calf tenderness Neurologic/Psychiatric: alert, disoriented x 3, other Skin: warm/dry Lymphatic: no adenopathy Data Review Labs Laboratory Tests 01/07/21 11:26: White Blood Count 9.5, Red Blood Count 4.13, Hemoglobin 12.4, Hematocrit 36, Mean Corpuscular Volume 87, Mean Corpuscular Hemoglobin 30, Mean Corpuscular Hemoglobin Concent 34, Red Cell Distribution Width 18.7H, Platelet Count 334, Mean Platelet Volume 9.9, Immature Granulocyte % (Auto) 1, Neutrophils (%) (Auto) 73, Lymphocytes (%) (Auto) 16, Monocytes (%) (Auto) 8, Eosinophils (%) (Auto) 2, Basophils (%) (Auto) 1, Neutrophils # (Auto) 7.0, Lymphocytes # (Auto) 1.5, Monocytes # (Auto) 0.8, Eosinophils # (Auto) 0.2, Basophils # (Auto) 0.1, Immature Granulocyte # (Auto) 0.1, Sodium Level 128L, Potassium Level 2.7L, Chloride Level 87L, Carbon Dioxide Level 27, Anion Gap 14, Blood Urea Nitrogen 10, Creatinine 2.24H, Estimat Glomerular Filtration Rate 23, BUN/Creatinine Ratio 4, Glucose Level 80, Lactic Acid Level 1.46, Calcium Level 7.7L, Corrected Calcium 9.0, Total Bilirubin 1.5H, Aspartate Amino Transf (AST/SGOT) 31, Alanine Aminotransferase (ALT/SGPT) 10, Alkaline Phosphatase 58, Troponin I < 0.028, B- Type Natriuretic Peptide 213.9H, Total Protein 6.7, Albumin 2.4L, Procalcitonin 0.07, Influenza Type A (RT-PCR) Not Detected, Influenza Type B (RT-PCR) Not Detected, SARS-CoV-2 RNA (RT-PCR) Not Detected 01/07/21 11:39: Ammonia 78H 01/07/21 11:41: Blood Gas Puncture Site LR, Blood Gas Patient Temperature 37.0, Arterial Blood pH 7.44H, Arterial Blood Partial Pressure CO2 43, Arterial Blood Partial Pre ssure O2 71L, Arterial Blood HCO3 29H, Arterial Blood Total CO2 30.3, Arterial Blood Oxygen Saturation 93L, Arterial Blood Base Excess 5.0H, Ernesto Test YES- POS, Blood Gas Ventilator Setting NO, Blood Gas Inspired Oxygen 6 01/07/21 11:42: Prothrombin Time 16.5H, INR Comment 1.3, Activated Partial Thromboplast Time 40H 01/07/21 11:49: Urine Color DARK YELLOW, Urine Clarity SL CLOUDY, Urine pH 5.5, Urine Specific [place] 1.015L, Urine Protein NEGATIVE, Urine Glucose (UA) NEGATIVE, Urine Ketones NEGATIVE, Urine Nitrite NEGATIVE, Urine Bilirubin 1+H, Urine Urobilinogen 0.2, Urine Leukocyte Esterase NEGATIVE, Urine RBC (Auto) NEGATIVE, Urine RBC NONE, Urine WBC NONE, Urine Crystals PRESENTH, Urine Amorphous Sediment FEW RIKKI URATESH, Urine Bacteria FEWH, Urine Casts PRESENT, Urine Hyaline Casts 25-50H, Urine Mucus NEGATIVE, Urine Culture Indicated CULTURE PENDING 01/07/21 13:29: Body Fluid Source PERITON, Body Fluid Color YELLOW, Body Fluid Appearance SLT CLDY, Body Fluid WBC 255, Body Fluid RBC 250, Body Fluid Polynuclear WBCs 47, Body Fluid Mononuclear WBCs 6, Body Fluid Lymphocytes 43, Body Fluid Eosinophils , Body Fluid Other Cells 4, Body Fluid Glucose 82, Body Fluid Total Protein 1.9 Assessment/Plan Assessment/Plan Assessment/Plan Patient is a 55-year-old female seen in the emergency department with symptomatic ascites Altered mental status Hypoxia Cirrhosis Rule out SBP Patient needing ultrasound-guided paracentesis out of medical necessity. This was discussed with Dr. Chand who agrees. Will perform paracentesis to help relieve symptoms possibly and rule out sbp. Will sign off please call if needed. CORETTA MCCRAY DO Jan 07, 2021 19:36
[2021-01-07] MEDS: CEFEPIME 1,000 MG/SWFI 10 ML IV PUSH IV SCH ×2 (23:39)
[2021-01-08] MEDS: LACTULOSE SYRUP 10GM/15ML (ENULOSE) 30ML UDC PO SCH ×7 (00:55→22:39)
[2021-01-08] MEDS: NS IV 1000 ML 1,000 ML IV SCH ×2 (00:55→08:07)
--- NOTE | 2021-01-08 01:17 | OPERATIVE REPORT ---
DATE OF SERVICE: 01/07/2021 PREOPERATIVE DIAGNOSIS: Symptomatic ascites, rule out SBP. POSTOPERATIVE DIAGNOSIS: Symptomatic ascites, rule out SBP. PROCEDURE: Ultrasound-guided paracentesis. SURGEON: Coretta Stephenson DO ANESTHESIA: 1% lidocaine. ESTIMATED BLOOD LOSS: Scant. COMPLICATIONS: None. INDICATIONS: The patient is a 55-year-old female who had some altered mental status and there is concern for SBP. It has been requested that I do a paracentesis to get some fluid for further testing. The patient was unable to be consented due to current condition but discussed with Dr. Chand as well who feels this needs to be done for the patient's best interest, so we will proceed. DESCRIPTION OF PROCEDURE: The patient was lying in the supine position. Ultrasound was used to isolate the largest pocket of fluid, which was in the left lower quadrant. The area was then prepped and draped in sterile fashion. Timeout was performed. Local anesthetic was infiltrated. A #11 blade scalpel was used to make a small skin incision. The [id number] needle and catheter were then advanced through the abdominal wall until straw-colored fluid was withdrawn. The catheter was then advanced, and the needle was removed. A total of 1000 mL of straw-colored fluid was withdrawn for testing. The catheter was then removed, and sterile bandages applied. The patient tolerated procedure well without any complications. Job ID: [id number] DocumentID: [id number] Dictated Date: 01/07/2021 19:19:29 [employer] Provider Date: 01/08/2021 01:17:22 Dictated By: CORETTA STEPHENSON DO
[2021-01-08] MEDS: RT-ALBUTEROL HFA 8.5 GM INHALER IH SCH ×6 (02:39→22:19)
[2021-01-08 04:46] LABS: BASOPHILS % (AUTO) 1 % (0-10); EOSINOPHILS # (AUTO) 0.2 10^3/uL (0.0-0.3); EOSINOPHILS % (AUTO) 2 % (0-10); HEMATOCRIT 36 % (35-52); HEMOGLOBIN 12.3 g/dL (11.5-16.0); LYMPHOCYTES # (AUTO) 1.7 10^3/uL (1.0-4.0); LYMPHOCYTES % (AUTO) 21 % (12-44); MEAN CORPUSCULAR HEMOGLOBIN 30 pg (25-34); MEAN CORPUSCULAR HGB CONC 34 g/dL (32-36); MEAN CORPUSCULAR VOLUME 87 fL (80-99); MEAN PLATELET VOLUME 9.6 fL (9.0-12.2); MONOCYTES # (AUTO) 0.7 10^3/uL (0.0-1.0); MONOCYTES % (AUTO) 8 % (0-12); NEUTROPHILS # (AUTO) 5.6 10^3/uL (1.8-7.8); NEUTROPHILS % (AUTO) 68 % (42-75); PLATELET COUNT 271 10^3/uL (130-400); WHITE BLOOD COUNT 8.2 10^3/uL (4.3-11.0)
[2021-01-08 05:02] LABS: CALCIUM 7.5 MG/DL (8.5-10.1)
[2021-01-08 05:07] LABS: CREATININE SERUM 1.9 MG/DL (0.60-1.30)
[2021-01-08 05:09] LABS: MAGNESIUM 1.5 MG/DL (1.6-2.4)
[2021-01-08 05:10] LABS: POTASSIUM 2.5 MMOL/L (3.6-5.0)
[2021-01-08] MEDS: MAGNESIUM 1 GM/100 ML IVPB 100 ML IV SCH ×3 (05:45→09:20)
[2021-01-08] MEDS: POTASSIUM CL 10MEQ/50ML IVPB 50 ML IV SCH ×5 (05:45→11:03)
[2021-01-08] MEDS: KCL 20 MEQ TAB (K-DUR) PO SCH (05:45)
[2021-01-08] MEDS ORDERED: ALBUMIN 25% 25 GM/100 ML 100 ML IV ONE (09:00)
--- NOTE | 2021-01-08 10:05 | Tele-ICU Progress Note ---
Progress Note video rounds completed 55 y/o female admitted with posible SBP started on cefipime fro possible PNA and to cover SBP had paracentesis and replacing fluid losses with albumin PE:" hr: 80 BP: 91/49 O2 sats: 96% LABS: creat: 1.9 has good UO K: 2.5 being replaced with mag. PLAN: continue antibiotics Pulm toilet Focused Exam Lactate Level 01/07/21 11:26: Lactic Acid Level 1.46 Height, Weight, BMI Height: 5'4.00" Weight: 127lbs. 4.0oz. 57.361206nf; 25.66 BMI Method:Stated Laboratory Tests 01/07/21 11:26 01/08/21 04:30 LYNN EDWARDS MD Jan 08, 2021 10:05
[2021-01-08] MEDS: CEFEPIME 1,000 MG/SWFI 10 ML IV PUSH IV SCH ×2 (13:50)
[2021-01-08] MEDS: ALBUMIN 25% 25 GM/100 ML 100 ML IV SCH ×2 (13:51→22:39)
[2021-01-08] MEDS ORDERED: LACTULOSE SYRUP 10GM/15ML (ENULOSE) 30ML UDC PO SCH (14:00)
[2021-01-08] MEDS: PANTOPRAZOLE 40 MG (PROTONIX) VIAL IV SCH (14:26)
--- NOTE | 2021-01-08 14:27 | Progress Note - Hospitalist ---
Subjective HPI/CC On Admission Date Seen by Provider: Jan 08, 2021 Time Seen by Provider: 09:25 Cora Ahumada is a 55 year old female with cirrhosis who presented with altered mental status. She is a poor historian due to her clinical condition. She was reportedly found on the floor by a family member or caregiver. She was weak and hypoxic. Her ER workup revealed hepatic encephalopathy and possible pneumonia. She was started on lactulose and antibiotics. She had a diagnostic paracentesis which was negative for spontaneous bacterial peritonitis. Subjective/Events-last exam She remains confused. She is not in any pain. She want something to drink. Focused Exam Lactate Level 01/07/21 11:26: Lactic Acid Level 1.46 Objective Exam Vital Signs Vital Signs Date Time Temp Pulse Resp B/P (MAP) Pulse Ox O2 Delivery O2 Flow Rate FiO2 01/08/21 13:00 79 13 120/72 98 OxyMask 5.00 01/08/21 08:33 35.9 Capillary Refill : Less Than 3 Seconds General Appearance: No Apparent Distress, Chronically ill Respiratory: Lungs Clear, Normal Breath Sounds, No Respiratory Distress Cardiovascular: Regular Rate, Rhythm, No Edema, No Murmur Gastrointestinal: Normal Bowel Sounds, Non Tender, Soft, Distended Extremity: Normal Inspection, Non Tender, No Pedal Edema Neurologic/Psychiatric: Alert, Disoriented Results/Procedures Lab Laboratory Tests 01/08/21 04:30 Patient resulted labs reviewed. Imaging: Reviewed Imaging Report Assessment/Plan Assessment and Plan Assess & Plan/Chief Complaint Decompensated hepatic cirrhosis Hepatic encephalopathy Continue Lactulose Ascites Acute respiratory failure with hypoxia Chest xray with possible right lower lobe pneumonia Procalcitonin within normal limits Continue Cefepime TeleICU following May need therapeutic paracentesis in the coming days Surgery following Acute kidney injury Creatinine elevated Stop IV fluids Urine sodium not consistent with hepatorenal syndrome Attempt albumin challenge DVT prophylaxis: Heparin Diagnosis/Problems Diagnosis/Problems (1) Decompensated hepatic cirrhosis Status: Acute (2) Hepatic encephalopathy Status: Acute (3) Abdominal ascites Status: Acute (4) Acute renal failure Status: Acute Qualifiers: Acute renal failure type: unspecified Qualified Codes: N17.9 - Acute kidney failure, unspecified GERALD GAR MD Jan 08, 2021 14:27
--- NOTE | 2021-01-08 16:50 | Diagnostic Imaging Report ---
Clinical indication: Patient with hypoxia. Exam: Portable chest x-ray upright view. Comparisons: Chest x-ray dated 01/07/2021. Findings: There is interval development of subtle airspace opacities involving right lower lung field and left lung base. There is no pleural effusion or pneumothorax. Pulmonary vasculature and cardiac silhouette are within normal limits. There are degenerative spurs involving the spine. impression: There is concern for development of subtle airspace opacities involving both lung bases which may represent atelectasis and/or infiltrates. Dictated by: Dictated on workstation # [id number]
[2021-01-09] MEDS: CEFEPIME 1,000 MG/SWFI 10 ML IV PUSH IV SCH ×4 (00:38→11:58)
[2021-01-09] MEDS: LACTULOSE SYRUP 10GM/15ML (ENULOSE) 30ML UDC PO SCH ×5 (02:32→21:29)
[2021-01-09] MEDS: RT-ALBUTEROL HFA 8.5 GM INHALER IH SCH ×4 (02:48→20:39)
[2021-01-09] MEDS: MAGNESIUM 1 GM/100 ML IVPB 100 ML IV SCH (06:01)
[2021-01-09] MEDS: ALBUMIN 25% 25 GM/100 ML 100 ML IV SCH (06:01)
[2021-01-09] MEDS: POTASSIUM CL 10MEQ/50ML IVPB 50 ML IV SCH ×10 (06:01→23:05)
[2021-01-09] MEDS: KCL 20 MEQ TAB (K-DUR) PO SCH (06:02)
[2021-01-09 06:10] VITALS: BP 107/61
[2021-01-09 07:53] LABS: BASOPHILS # (AUTO) 0.1 10^3/uL (0.0-0.1); BASOPHILS % (AUTO) 1 % (0-10); EOSINOPHILS # (AUTO) 0.3 10^3/uL (0.0-0.3); EOSINOPHILS % (AUTO) 4 % (0-10); HEMATOCRIT 29 % (35-52); HEMOGLOBIN 9.9 g/dL (11.5-16.0); LYMPHOCYTES # (AUTO) 2.1 10^3/uL (1.0-4.0); LYMPHOCYTES % (AUTO) 33 % (12-44); MEAN CORPUSCULAR HEMOGLOBIN 30 pg (25-34); MEAN CORPUSCULAR HGB CONC 34 g/dL (32-36); MEAN CORPUSCULAR VOLUME 88 fL (80-99); MEAN PLATELET VOLUME 9.4 fL (9.0-12.2); MONOCYTES # (AUTO) 0.6 10^3/uL (0.0-1.0); MONOCYTES % (AUTO) 10 % (0-12); NEUTROPHILS # (AUTO) 3.3 10^3/uL (1.8-7.8); NEUTROPHILS % (AUTO) 52 % (42-75); PLATELET COUNT 211 10^3/uL (130-400); WHITE BLOOD COUNT 6.2 10^3/uL (4.3-11.0)
[2021-01-09 07:54] LABS: ALBUMIN 3.2 GM/DL (3.2-4.5)
[2021-01-09 07:56] LABS: CALCIUM 7.8 MG/DL (8.5-10.1)
[2021-01-09 07:57] LABS: TOTAL PROTEIN 6.1 GM/DL (6.4-8.2)
[2021-01-09 07:58] LABS: SMEAR SCAN COMMENT YES
[2021-01-09 07:59] LABS: BILIRUBIN,TOTAL 1.5 MG/DL (0.1-1.0)
[2021-01-09 08:00] LABS: PHOSPHORUS 2.7 MG/DL (2.3-4.7)
[2021-01-09 08:01] LABS: CREATININE SERUM 1.37 MG/DL (0.60-1.30)
[2021-01-09 08:04] LABS: MAGNESIUM 1.9 MG/DL (1.6-2.4)
[2021-01-09 08:05] LABS: POTASSIUM 2.4 MMOL/L (3.6-5.0)
--- NOTE | 2021-01-09 10:12 | Tele-ICU Progress Note ---
Progress Note video rounds completed 55 y/o with sepsis and ascites, possible SBP overall doing well lying i bed comfortably VSS K: 2.4 being replaced no other new issues Focused Exam Lactate Level 01/07/21 11:26: Lactic Acid Level 1.46 Height, Weight, BMI Height: 5'4.00" Weight: 127lbs. 4.0oz. 57.047860pe; 25.66 BMI Method:Stated Laboratory Tests 01/09/21 07:36 LYNN EDWARDS MD Jan 09, 2021 10:12
[2021-01-09] MEDS: PANTOPRAZOLE 40 MG (PROTONIX) VIAL IV SCH (10:29)
[2021-01-09] MEDS ORDERED: NS IV 500 ML 500 ML ONE ×2 (11:35→20:38)
[2021-01-09] MEDS ORDERED: NS IV 500 ML 500 ML IV ONE (11:45)
--- NOTE | 2021-01-09 13:16 | Progress Note - Hospitalist ---
Subjective HPI/CC On Admission Date Seen by Provider: Jan 09, 2021 Time Seen by Provider: 09:10 Cora Ahumada is a 55 year old female with cirrhosis who presented with altered mental status. She is a poor historian due to her clinical condition. She was reportedly found on the floor by a family member or caregiver. She was weak and hypoxic. Her ER workup revealed hepatic encephalopathy and possible pneumonia. She was started on lactulose and antibiotics. She had a diagnostic paracentesis which was negative for spontaneous bacterial peritonitis. Subjective/Events-last exam She is doing better today. She is less confused. She is not short of breath. She says she is ready to go home. Focused Exam Lactate Level 01/07/21 11:26: Lactic Acid Level 1.46 Objective Exam Vital Signs Vital Signs Date Time Temp Pulse Resp B/P (MAP) Pulse Ox O2 Delivery O2 Flow Rate FiO2 01/09/21 13:00 105 01/09/21 12:00 20 121/78 91 OxyMask 6.00 01/09/21 08:25 36.4 Capillary Refill : Less Than 3 Seconds General Appearance: No Apparent Distress, Chronically ill Respiratory: Lungs Clear, Normal Breath Sounds, No Respiratory Distress Cardiovascular: Regular Rate, Rhythm, No Edema, No Murmur Gastrointestinal: Normal Bowel Sounds, Non Tender, Soft, Distended Extremity: Normal Inspection, Non Tender, No Pedal Edema Neurologic/Psychiatric: Alert, Oriented x3, Motor Weakness Skin: Normal Color, Warm/Dry Results/Procedures Lab Laboratory Tests 01/09/21 07:36 Patient resulted labs reviewed. Imaging: Reviewed Imaging Report Assessment/Plan Assessment and Plan Assess & Plan/Chief Complaint Decompensated hepatic cirrhosis Hepatic encephalopathy End stage liver disease Poor prognosis Continue Lactulose TeleICU following Consult palliative care Ascites Diagnostic paracentesis without SBP May need therapeutic paracentesis in the coming days Surgery following Acute kidney injury Creatinine elevated, improving Urine sodium not consistent with hepatorenal syndrome Responded well to albumin Hypokalemia Monitor and replace as needed DVT prophylaxis: Heparin Diagnosis/Problems Diagnosis/Problems (1) End-stage liver disease Status: Acute (2) Poor prognosis Status: Acute (3) Decompensated hepatic cirrhosis Status: Acute (4) Hepatic encephalopathy Status: Acute (5) Abdominal ascites Status: Acute Qualifiers: Ascites type: due to alcoholic cirrhosis Qualified Codes: K70.31 - Alcoholic cirrhosis of liver with ascites (6) Acute renal failure Status: Acute Qualifiers: Acute renal failure type: unspecified Qualified Codes: N17.9 - Acute kidney failure, unspecified (7) Hypokalemia Status: Acute GERALD GAR MD Jan 09, 2021 13:16
[2021-01-09] MEDS ORDERED: POTASSIUM CL 10MEQ/50ML IVPB 50 ML IV SCH (19:00)
[2021-01-09] MEDS ORDERED: POTASSIUM CL 10MEQ/50ML IVPB 300 ML IV ONE (19:21)
[2021-01-09] MEDS: RIFAXIMIN 550 MG TABLET (XIFAXAN) PO SCH (21:31)
[2021-01-09] MEDS: LORATADINE (CLARITIN) 10 MG TAB PO SCH (21:31)
[2021-01-09] MEDS: GABAPENTIN 300 MG (NEURONTIN) CAP PO SCH (21:31)
[2021-01-09] MEDS: rOPINIRole 0.25 MG (REQUIP) TAB PO SCH (21:39)
[2021-01-09] MEDS: RT--FLUTICASONE/SALMETEROL 113-14 (AIRDUO RespiCLICK) IH SCH (21:46)
[2021-01-10] MEDS: POTASSIUM CL 10MEQ/50ML IVPB 50 ML IV SCH ×2 (00:31→01:56)
[2021-01-10] MEDS: RT-ALBUTEROL HFA 8.5 GM INHALER IH SCH ×4 (02:26→21:26)
[2021-01-10 05:38] LABS: BASOPHILS # (AUTO) 0.1 10^3/uL (0.0-0.1); BASOPHILS % (AUTO) 1 % (0-10); EOSINOPHILS # (AUTO) 0.2 10^3/uL (0.0-0.3); EOSINOPHILS % (AUTO) 3 % (0-10); HEMATOCRIT 37 % (35-52); LYMPHOCYTES # (AUTO) 2.3 10^3/uL (1.0-4.0); LYMPHOCYTES % (AUTO) 32 % (12-44); MEAN CORPUSCULAR HEMOGLOBIN 30 pg (25-34); MEAN CORPUSCULAR HGB CONC 35 g/dL (32-36); MEAN CORPUSCULAR VOLUME 86 fL (80-99); MEAN PLATELET VOLUME 9.8 fL (9.0-12.2); MONOCYTES # (AUTO) 0.7 10^3/uL (0.0-1.0); MONOCYTES % (AUTO) 9 % (0-12); NEUTROPHILS # (AUTO) 4.1 10^3/uL (1.8-7.8); NEUTROPHILS % (AUTO) 55 % (42-75); PLATELET COUNT 274 10^3/uL (130-400); WHITE BLOOD COUNT 7.4 10^3/uL (4.3-11.0)
[2021-01-10 05:51] LABS: ALBUMIN 2.8 GM/DL (3.2-4.5); POTASSIUM 3.8 MMOL/L (3.6-5.0)
[2021-01-10 05:52] LABS: CALCIUM 7.7 MG/DL (8.5-10.1)
[2021-01-10 05:53] LABS: TOTAL PROTEIN 5.7 GM/DL (6.4-8.2)
[2021-01-10 05:55] LABS: BILIRUBIN,TOTAL 1.8 MG/DL (0.1-1.0)
[2021-01-10 05:57] LABS: CREATININE SERUM 1.33 MG/DL (0.60-1.30); PHOSPHORUS 1.9 MG/DL (2.3-4.7)
[2021-01-10 06:00] LABS: MAGNESIUM 1.7 MG/DL (1.6-2.4)
[2021-01-10] MEDS: PANTOPRAZOLE 40 MG (PROTONIX) TAB PO SCH (06:32)
[2021-01-10] MEDS: LEVOTHYROXINE 25 MCG (LEVOTHROID) TAB PO SCH (06:32)
[2021-01-10] MEDS: FUROSEMIDE 20 MG (LASIX) TAB PO SCH (08:42)
[2021-01-10] MEDS: RIFAXIMIN 550 MG TABLET (XIFAXAN) PO SCH ×2 (08:42→20:33)
[2021-01-10] MEDS: LACTULOSE SYRUP 10GM/15ML (ENULOSE) 30ML UDC PO SCH ×4 (08:43→20:34)
[2021-01-10] MEDS: SPIRONOLACTONE 25 MG (ALDACTONE) TAB PO SCH (08:43)
[2021-01-10] MEDS ORDERED: NON-FORMULARY MEDICATION 1 EA EA (Propranolol HCl 60 MG) PO SCH (09:00)
--- NOTE | 2021-01-10 09:37 | Progress Note - Hospitalist ---
Subjective HPI/CC On Admission Date Seen by Provider: Jan 10, 2021 Time Seen by Provider: 09:34 Cora Ahumada is a 55 year old female with cirrhosis who presented with altered mental status. She is a poor historian due to her clinical condition. She was reportedly found on the floor by a family member or caregiver. She was weak and hypoxic. Her ER workup revealed hepatic encephalopathy and possible pneumonia. She was started on lactulose and antibiotics. She had a diagnostic paracentesis which was negative for spontaneous bacterial peritonitis. Subjective/Events-last exam pt reports having increasing bad pain today. States it is getting swollen again and possibly bigger than it was when she came in. We discussed this will likely be a lifelong problem but that surgery could talk to her about a drain. She was very interested in this. Focused Exam Lactate Level 01/07/21 11:26: Lactic Acid Level 1.46 Objective Exam Vital Signs Vital Signs Date Time Temp Pulse Resp B/P (MAP) Pulse Ox O2 Delivery O2 Flow Rate FiO2 01/10/21 08:15 36.4 103 18 120/65 90 Room Air 01/09/21 12:00 6.00 Capillary Refill : Less Than 3 Seconds General Appearance: No Apparent Distress, Chronically ill, Cachetic Respiratory: Lungs Clear, No Respiratory Distress Cardiovascular: Regular Rate, Rhythm, No Murmur Gastrointestinal: No Abnormal Bowel Sounds; Distended; No Guarding Neurologic/Psychiatric: Alert, Oriented x3 Results/Procedures Lab Laboratory Tests 01/09/21 18:30 01/10/21 05:14 Patient resulted labs reviewed. Imaging: Reviewed Imaging Report Assessment/Plan Assessment and Plan Assess & Plan/Chief Complaint Decompensated hepatic cirrhosis Hepatic encephalopathy End stage liver disease Poor prognosis Ascites Continue Lactulose TeleICU following Consult palliative care Diagnostic paracentesis without SBP Surgery following, discussed with Dr Stephenson who will assess for repeat paracentesis as reaccumulated with lasix and spironolactone Acute kidney injury Creatinine elevated, from November but stable trend Hypokalemia Monitor and replace as needed DVT prophylaxis: DESMOND Edwards MD Jan 10, 2021 09:37
[2021-01-10] MEDS: RT--FLUTICASONE/SALMETEROL 113-14 (AIRDUO RespiCLICK) IH SCH ×2 (09:45→21:25)
--- NOTE | 2021-01-10 10:07 | Physical Therapy Evaluation ---
PT Evaluation-General Medical Diagnosis Admission Date Jan 07, 2021 at 13:04 Medical Diagnosis: Decompensated hepatic cirrhosis, Hepatic Encephalopathy, Pneumonia Onset Date: Jan 09, 2021 Therapy Diagnosis Therapy Diagnosis: Gait deficit, strength deficit Height/Weight Height (Feet): 5 Height (Inches): 4.00 Weight (Pounds): 127 Weight (Ounces): 4.0 Precautions Precautions/Isolations: Fall Prevention, Standard Precautions Referral Physician: Dr. Persaud Reason for Referral: Evaluation/Treatment Social History Home: Single Level Current Living Status: Alone Entry Into Home: Stairs With Railing PT Steps Into Home: 5 Prior Prior Level of Function SCALE: Activities may be completed with or without assistive devices. 8-Akgnttqwjc-gkypynk completes the activity by him/herself with no assistance from a helper. 5-Set-up or Clean-up Assistance-helper sets up or cleans up; patient completes activity. Adak assists only prior to or following the activity. 4-Supervision or Touching Assistance-helper provides verbal cues and/or touching/steadying and/or contact guard assistance as patient completes activity. Assistance may be provided throughout the activity or intermittently. 3-Partial/Moderate Assistance-helper does LESS THAN HALF the effort. Adak lifts, holds or supports trunk or limbs, but provides less than half the effort. 2-Substantial/Maximal Assistance-helper does MORE THAN HALF the effort. Adak lifts or holds trunk or limbs and provides more than half the effort. 7-Skgteloxo-egmzwl does ALL the effort. Patient does none of the effort to complete the activity. Or, the assistance of 2 or more helpers is required for the patient to complete the activity. If activity was not attempted, code reason: 7-Patient Refused. 9-Not Applicable-not attempted and the patient did not perform the activity before the current illness, exacerbation or injury. 10-Not Attempted due to Environmental Limitations-(lack of equipment, weather restraints, etc.). 88-Not Attempted due to Medical Conditions or Safety Concerns. Bed Mobility: 6 Transfers (B,C,W/C): 6 Gait: 6 Stairs: 6 Indoor Mobility (Ambulation): Independent Stairs: Independent Patient reports prior to hospitalization she was able to perform all ADLs with I, however does not drive as she has no license. PT Evaluation-Current Subjective Patient lying supine in bed upon PT arrival, agreeable to treatment, however reports severe pain in her "torso". Reports pain at 10/10 and states that she is having trouble breathing. Nurse notified, and patient also requested inhalers. Objective Patient Orientation: Person, Place, Situation Attachments: Oxygen, Woods Catheter, IV ROM/Strength ROM Lower Extremities WFLs all planes bilaterally Strength Lower Extremities 3+/5 grossly bilaterally Transfers Roll Left to Right (QC): 4 Sit to Lying (QC): 4 Lying to Sitting/Side of Bed(Q: 4 Sit to Stand (QC): 3 Gait Does the Patient Walk?: No and Walking Goal IS indicated Balance Sitting Static: Fair Sitting Dynamic: Fair Standing Static: Poor Standing Dynamic: Poor Assessment/Needs Patient tolerated treatment poorly. She was not motivated to participate due to pain. Patient performed all observed bed mobility and transfers with CGA and verbal cues for safety and balance. Patient able to sit at the edge of the bed ~ 5 minutes, however refused to stand or perform any further activity. She is able to return to the bed with min A. Patient in bed post treatment with all needs met, nurse notified, call light in hand. Rehab Potential: Fair Equipment Needs None at this time as patient reports she has a FWW; upon further assessment of her abilities further DME may be required. PT [facility] Goals F[facility] Goals PT Clinical Lab Assistant Goals Time Frame: Jan 31, 2021 Roll Left & Right (QC): 6 Sit to Lying (QC): 6 Lying-Sitting on Side/Bed(QC): 6 Sit to Stand (QC): 6 Chair/Fzr-nu-Lxuzs Xfer(QC): 6 Toilet Transfer (QC): 6 Does the Patient Walk: Yes Walk 10 feet (QC): 5 Walk 50ft with 2 Turns (QC): 5 Walk 150 ft (QC): 5 1 Step (curb) (QC): 5 4 Steps (QC): 5 PT Plan Problem List Problem List: Activity Tolerance, Functional Strength, Safety, Balance, Gait, Transfer, Bed Mobility, ROM Treatment/Plan Treatment Plan: Continue Plan of Care Treatment Plan: Bed Mobility, Education, Functional Activity Zheng, Functional Strength, Group Therapy, Gait, Safety, Therapeutic Exercise, Transfers Treatment Duration: Mar 16, 2021 Frequency: 6 times per week Estimated Hrs Per Day: .25 hour per day Safety Risks/Education Patient Education: Transfer Techniques, Safety Issues Teaching Recipient: Patient Teaching Methods: Demonstration, Discussion Response to Teaching: Verbalize Understanding, Reinforcement Needed Time/GCodes Time In: 930 Time Out: 950 Total Billed Treatment Time: 20 Total Billed Treatment Visit, JACOB Bee PT Jan 10, 2021 10:07
[2021-01-10] MEDS: PROPRANOLOL 20 MG (INDERAL) TABLET PO SCH (10:19)
[2021-01-10] MEDS ORDERED: SPIR50TA4 PO (13:44)
[2021-01-10] MEDS ORDERED: FOLI1TAB33 PO (13:44)
[2021-01-10] MEDS ORDERED: SUCR1TAB PO (13:44)
[2021-01-10] MEDS ORDERED: ALPR0.5T7 PO (13:44)
[2021-01-10] MEDS ORDERED: FURO20TA4 PO (13:44)
[2021-01-10] MEDS ORDERED: THIA100T66 PO (13:44)
[2021-01-10] MEDS ORDERED: RT-ALBUINH INH (13:44)
--- NOTE | 2021-01-10 19:16 | Progress Note - Surgery ---
Subjective Date Seen by a Provider: Jan 10, 2021 Time Seen by a Provider: 08:45 Subjective/Events-last exam Patient is a 55-year-old female known to me. Patient having increasing abdominal pain due to distention from her ascites. Patient becoming more symptomatic. When this does she gets little bit more shortness of breath. Patient pain is diffuse on her abdomen. Nothing making it better or worse at this time. Patient denies any fever sweats chills or chest pain at this time. Objective Exam Vital Signs Date Time Temp Pulse Resp B/P (MAP) Pulse Ox O2 Delivery O2 Flow Rate FiO2 01/10/21 15:13 93 Room Air 01/10/21 14:46 91 Room Air 01/10/21 14:43 37.0 70 18 136/60 91 Room Air 01/10/21 09:45 93 Room Air 01/10/21 08:15 36.4 103 18 120/65 90 Room Air 01/10/21 08:00 95 Room Air 01/10/21 06:42 36.0 99 20 126/78 90 Room Air 01/10/21 04:00 92 Room Air 01/10/21 02:26 93 Room Air 01/10/21 00:28 35.9 101 18 118/69 92 Room Air 01/09/21 23:59 94 Room Air 01/09/21 20:39 93 Room Air 01/09/21 20:00 93 Room Air 01/09/21 19:55 36.6 112 20 146/79 90 Room Air l I & O 01/10/21 07:00 Intake Total 2510 ml Output Total 885 ml Balance 1625 ml Capillary Refill : Less Than 3 Seconds General Appearance: No Apparent Distress, Chronically ill, Cachetic HEENT: PERRL/EOMI, Pharynx Normal Neck: Normal Inspection, Supple Respiratory: Chest Non Tender, No Accessory Muscle Use, No Respiratory Distress Cardiovascular: Regular Rate, Rhythm, No Murmur Gastrointestinal: soft, distended; No tenderness; other (Fluid wave) Extremity: Normal Inspection, Non Tender, No Pedal Edema Neurologic/Psychiatric: Alert, Oriented x3 Skin: Normal Color, Warm/Dry Lymphatic: No Adenopathy Results Lab Laboratory Tests 01/10/21 05:14: White Blood Count 7.4, Red Blood Count 4.32, Hemoglobin 13.0#, Hematocrit 37, Mean Corpuscular Volume 86, Mean Corpuscular Hemoglobin 30, Mean Corpuscular Hemoglobin Concent 35, Red Cell Distribution Width 19.0H, Platelet Count 274, Mean Platelet Volume 9.8, Immature Granulocyte % (Auto) 1, Neutrophils (%) (A uto) 55, Lymphocytes (%) (Auto) 32, Monocytes (%) (Auto) 9, Eosinophils (%) (Auto) 3, Basophils (%) (Auto) 1, Neutrophils # (Auto) 4.1, Lymphocytes # (Auto) 2.3, Monocytes # (Auto) 0.7, Eosinophils # (Auto) 0.2, Basophils # (Auto) 0.1, Immature Granulocyte # (Auto) 0.0, Sodium Level 130L, Potassium Level 3.8, Chloride Level 102, Carbon Dioxide Level 17L, Anion Gap 11, Blood Urea Nitrogen 6L, Creatinine 1.33H, Estimat Glomerular Filtration Rate 41, BUN/Creatinine Ratio 5, Glucose Level 101, Calcium Level 7.7L, Corrected Calcium 8.7, Phosphorus Level 1.9L, Magnesium Level 1.7, Total Bilirubin 1.8H, Aspartate Amino Transf (AST/SGOT) 18, Alanine Aminotransferase (ALT/SGPT) 9, Alkaline Phosphatase 43, Total Protein 5.7L, Albumin 2.8L Microbiology 01/07/21 MRSA Screen - Final, Complete MRSA not isolated 01/07/21 Gram Stain - Final, Resulted 01/07/21 Body Fluid Culture - Preliminary, Resulted No growth 01/07/21 Urine Culture - Final, Complete NO GROWTH 01/07/21 Blood Culture - Preliminary, Resulted No growth Assessment/Plan Assessment/Plan Assessment/Plan symptomatic ascites Altered mental status Hypoxia Cirrhosis Patient with symptomatic ascites that is recurrent. I did discuss with Dr. Elkins and we discussed the possibly Pleurx catheter would be a good option so she could have this continually drained when she needs it and could do herself. Antonio cornelius discussed risk and benefits of having abdominal Pleurx drain placed. Versus having repeat paracentesis. Patient wishes to proceed with abdominal Pleurx catheter placement. Patient to be n.p.o. after midnight. Will obtain consent. Patient to be scheduled for tomorrow.. CORETTA MCCRAY DO Jan 10, 2021 19:16
[2021-01-10] MEDS: LORATADINE (CLARITIN) 10 MG TAB PO SCH (20:31)
[2021-01-10] MEDS: rOPINIRole 0.25 MG (REQUIP) TAB PO SCH (20:33)
[2021-01-10] MEDS: GABAPENTIN 300 MG (NEURONTIN) CAP PO SCH (20:33)
[2021-01-11] MEDS: RT-ALBUTEROL HFA 8.5 GM INHALER IH SCH ×4 (02:21→21:39)
[2021-01-11 05:35] LABS: BASOPHILS # (AUTO) 0.1 10^3/uL (0.0-0.1); BASOPHILS % (AUTO) 1 % (0-10); EOSINOPHILS # (AUTO) 0.4 10^3/uL (0.0-0.3); EOSINOPHILS % (AUTO) 7 % (0-10); HEMATOCRIT 37 % (35-52); HEMOGLOBIN 12.8 g/dL (11.5-16.0); LYMPHOCYTES # (AUTO) 2.2 10^3/uL (1.0-4.0); LYMPHOCYTES % (AUTO) 38 % (12-44); MEAN CORPUSCULAR HEMOGLOBIN 30 pg (25-34); MEAN CORPUSCULAR HGB CONC 34 g/dL (32-36); MEAN CORPUSCULAR VOLUME 88 fL (80-99); MONOCYTES # (AUTO) 0.6 10^3/uL (0.0-1.0); MONOCYTES % (AUTO) 10 % (0-12); NEUTROPHILS # (AUTO) 2.6 10^3/uL (1.8-7.8); NEUTROPHILS % (AUTO) 44 % (42-75); PLATELET COUNT 276 10^3/uL (130-400)
[2021-01-11 05:45] LABS: ALBUMIN 2.7 GM/DL (3.2-4.5); POTASSIUM 3.8 MMOL/L (3.6-5.0)
[2021-01-11 05:48] LABS: TOTAL PROTEIN 5.9 GM/DL (6.4-8.2)
[2021-01-11 05:50] LABS: BILIRUBIN,TOTAL 1.9 MG/DL (0.1-1.0)
[2021-01-11 05:51] LABS: CREATININE SERUM 1.46 MG/DL (0.60-1.30); PHOSPHORUS 2.6 MG/DL (2.3-4.7)
[2021-01-11 05:55] LABS: MAGNESIUM 1.7 MG/DL (1.6-2.4)
[2021-01-11] MEDS: PANTOPRAZOLE 40 MG (PROTONIX) TAB PO SCH (05:58)
[2021-01-11] MEDS: LEVOTHYROXINE 25 MCG (LEVOTHROID) TAB PO SCH (05:58)
--- NOTE | 2021-01-11 07:58 | Progress Note - Surgery ---
BRAD ISRAEL 01/11/21 0758: Subjective Date Seen by a Provider: Jan 11, 2021 Time Seen by a Provider: 07:30 Subjective/Events-last exam Pt reports lower abdominal pain and increased pressure all over thoracic area. Better with pain medication and worse with everything. Tongue is red after drinking hot coffee. Reports cough and diarrhea. Denies any fever, chills, vomiting, or chest pain. Minimal LE edema found. Pleurex catheter placement planned for today. Objective Exam Vital Signs Date Time Temp Pulse Resp B/P (MAP) Pulse Ox O2 Delivery O2 Flow Rate FiO2 01/11/21 04:00 35.9 69 18 100/59 92 Room Air 01/11/21 02:21 93 Room Air 01/11/21 00:00 36.2 66 18 137/64 91 Room Air 01/10/21 21:26 91 Room Air 01/10/21 20:30 Room Air 01/10/21 20:00 36.1 75 20 122/69 91 Room Air 01/10/21 15:13 93 Room Air 01/10/21 14:46 91 Room Air 01/10/21 14:43 37.0 70 18 136/60 91 Room Air 01/10/21 09:45 93 Room Air 01/10/21 08:15 36.4 103 18 120/65 90 Room Air 01/10/21 08:00 95 Room Air I & O 01/11/21 07:00 Intake Total 1045 ml Output Total 1375 ml Balance -330 ml Capillary Refill : Less Than 3 Seconds General Appearance: No Apparent Distress, Chronically ill, Cachetic HEENT: PERRL/EOMI, Pharynx Normal Neck: Normal Inspection, Supple Respiratory: Chest Non Tender, No Accessory Muscle Use, No Respiratory Distress Cardiovascular: Regular Rate, Rhythm, No Murmur Gastrointestinal: soft, distended; No tenderness; other (Fluid wave) Extremity: Normal Inspection, Non Tender, No Pedal Edema Neurologic/Psychiatric: Alert, Oriented x3 Skin: Normal Color, Warm/Dry Lymphatic: No Adenopathy Results Lab Laboratory Tests 01/11/21 05:20: White Blood Count 6.0, Red Blood Count 4.24, Hemoglobin 12.8, Hematocrit 37, Mean Corpuscular Volume 88, Mean Corpuscular Hemoglobin 30, Mean Corpuscular Hemoglobin Concent 34, Red Cell Distribution Width 19.1H, Platelet Count 276, Mean Platelet Volume 10.0, Immature Granulocyte % (Auto) 0, Neutrophils (%) (Auto) 44, Lymphocytes (%) (Auto) 38, Monocytes (%) (Auto) 10, Eosinophils (%) (Auto) 7, Basophils (%) (Auto) 1, Neutrophils # (Auto) 2.6, Lymphocytes # (Auto) 2.2, Monocytes # (Auto) 0.6, Eosinophils # (Auto) 0.4H, Basophils # (Auto) 0.1, Immature Granulocyte # (Auto) 0.0, Sodium Level 131L, Potassium Level 3.8, Chloride Level 101, Carbon Dioxide Level 20L, Anion Gap 10, Blood Urea Nitrogen 7, Creatinine 1.46H, Estimat Glomerular Filtration Rate 37, BUN/Creatinine Ratio 5, Glucose Level 93, Calcium Level 8.0L, Corrected Calcium 9.0, Phosphorus Level 2.6, Magnesium Level 1.7, Total Bilirubin 1.9H, Aspartate Amino Transf (AST/SGOT) 16, Alanine Aminotransferase (ALT/SGPT) 9, Alkaline Phosphatase 47, Total Protein 5.9L, Albumin 2.7L Microbiology 01/07/21 MRSA Screen - Final, Complete MRSA not isolated 01/07/21 Gram Stain - Final, Complete 01/07/21 Body Fluid Culture - Final, Complete No growth 01/07/21 Urine Culture - Final, Complete NO GROWTH 01/07/21 Blood Culture - Preliminary, Resulted No growth Assessment/Plan Assessment/Plan Assessment/Plan Symptomatic ascites Altered mental status Hypoxia Cirrhosis Currently NPO Pleurex catheter to be placed today CORETTA STEPHENSON DO 01/12/21 2210: Subjective Subjective/Events-last exam Patient have increasing abdominal pain due to distention and pressure. Patient states that the pain medication does help her with her symptoms. Patient feels that she may be more distended than she was before. Patient wanting to discuss having a Pleurx catheter placed for ability to drain abdomen when she is needing without having to have paracentesis performed. Patient with no other complaints. Denies any nausea vomiting fever sweats chills shortness of breath or chest pain. Objective Exam General Appearance: No Apparent Distress, Chronically ill, Cachetic HEENT: PERRL/EOMI, Normal ENT Inspection Neck: Normal Inspection, Non Tender, Supple Respiratory: Chest Non Tender, No Accessory Muscle Use, No Respiratory Distress Cardiovascular: Regular Rate, Rhythm, No JVD Gastrointestinal: soft, distended, other (Fluid wave) Extremity: Normal Inspection, Non Tender Neurologic/Psychiatric: Alert, Oriented x3 Skin: Normal Color, Warm/Dry Lymphatic: No Adenopathy Assessment/Plan Assessment/Plan Assessment/Plan Symptomatic ascites Altered mental status Hypoxia Cirrhosis Currently NPO Pleurex catheter to be placed today She understands all risks and benefits of having it placed in the abdomen. Supervisory-Addendum Brief Verification & Attestation Participated in pt care: history, MDM, physical Personally performed: exam, history, MDM, supervision of care Care discussed with: Medical Student Procedures: n/a Results interpretation: Verified all documentation Verification and Attestation of Medical Student E/M Service A medical student performed and documented this service in my presence. I reviewed and verified all information documented by the medical student and made modifications to such information, when appropriate. I personally performed the physical exam and medical decision making. Coretta Stephenson, Jan 11, 2021, 11:09 BRAD ISRAEL Jan 11, 2021 07:58 CORETTA STEPHENSON DO Jan 12, 2021 22:10
[2021-01-11] MEDS: PROPRANOLOL 20 MG (INDERAL) TABLET PO SCH (08:52)
[2021-01-11] MEDS: SPIRONOLACTONE 25 MG (ALDACTONE) TAB PO SCH (08:52)
[2021-01-11] MEDS: FUROSEMIDE 20 MG (LASIX) TAB PO SCH (08:53)
[2021-01-11] MEDS: RIFAXIMIN 550 MG TABLET (XIFAXAN) PO SCH ×2 (08:53→20:28)
[2021-01-11] MEDS: LACTULOSE SYRUP 10GM/15ML (ENULOSE) 30ML UDC PO SCH ×4 (08:59→20:32)
[2021-01-11] MEDS: RT--FLUTICASONE/SALMETEROL 113-14 (AIRDUO RespiCLICK) IH SCH ×2 (10:19→21:39)
--- NOTE | 2021-01-11 10:26 | Progress Note - Hospitalist ---
Subjective HPI/CC On Admission Date Seen by Provider: Jan 11, 2021 Time Seen by Provider: 10:24 Cora Ahumada is a 55 year old female with cirrhosis who presented with altered mental status. She is a poor historian due to her clinical condition. She was reportedly found on the floor by a family member or caregiver. She was weak and hypoxic. Her ER workup revealed hepatic encephalopathy and possible pneumonia. She was started on lactulose and antibiotics. She had a diagnostic paracentesis which was negative for spontaneous bacterial peritonitis. Subjective/Events-last exam pt reports feeling ok today. less confused. Abdominal pain still presented but increased oxycodone dose has helped. Plan for paracentesis today with drain. Objective Exam Vital Signs Vital Signs Date Time Temp Pulse Resp B/P (MAP) Pulse Ox O2 Delivery O2 Flow Rate FiO2 01/11/21 08:00 36.2 73 19 114/60 90 Room Air 01/09/21 12:00 6.00 Capillary Refill : Less Than 3 Seconds General Appearance: No Apparent Distress, Chronically ill Respiratory: Lungs Clear, No Respiratory Distress Cardiovascular: Regular Rate, Rhythm, No Murmur Gastrointestinal: Normal Bowel Sounds, Distended; No Guarding; Tenderness (mild) Extremity: No Calf Tenderness, No Pedal Edema Neurologic/Psychiatric: Alert, Oriented x3 Results/Procedures Lab Laboratory Tests 01/11/21 05:20 Patient resulted labs reviewed. Imaging: Reviewed Imaging Report Assessment/Plan Assessment and Plan Assess & Plan/Chief Complaint Decompensated hepatic cirrhosis Hepatic encephalopathy End stage liver disease Poor prognosis Ascites Continue Lactulose TeleICU following Consult palliative care, patient interested in palliative care Diagnostic paracentesis without SBP on presentation Surgery following,plan for paracentesis today PT/OT Oxycodone for pain Acute kidney injury Creatinine stabilized trend Hypokalemia- resolved DVT prophylaxis: Heparin DESMOND LYNCH MD Jan 11, 2021 10:26
--- NOTE | 2021-01-11 11:12 | Physical Therapy Progress Note ---
Therapy Progress Note Patient refuses PT tx this morning. Patient states she doesn't want to do therapy because she is having surgery today and that she is "pissed off and about to leave this place". Patient is going to surgery today but unknown when this will happen. Patient is agitated. Will check back in the morning. DAIANA DOWD PT Jan 11, 2021 11:12
[2021-01-11] MEDS ORDERED: MIDAZOLAM 2 MG/2 ML (VERSED) VIAL ONE (13:33)
[2021-01-11] MEDS ORDERED: PROPOFOL INJECTION 50 ML IV ONE (13:33)
[2021-01-11] MEDS ORDERED: LACTATED RINGERS 1,000 ML IV PRN (14:15)
[2021-01-11 15:08] VITALS: BP 99/57
[2021-01-11 15:10] VITALS: BP 98/54
[2021-01-11] MEDS ORDERED: morphine INJ 10 MG/ML 1ML (SYR OR VIAL) IVP ONE (15:15)
[2021-01-11] MEDS ORDERED: ONDANSETRON 4 MG/2 ML (SDV) Z0FRAN IVP PRN (15:15)
[2021-01-11 15:20] VITALS: BP 100/71
[2021-01-11 15:30] VITALS: BP 92/51
--- NOTE | 2021-01-11 15:56 | Anesthesia-General Post-Op ---
MAC Patient Condition Mental Status/LOC: Same as Preop Cardiovascular: Satisfactory Nausea/Vomiting: Absent Respiratory: Satisfactory Pain: Controlled Complications: Absent Post Op Complications Complications None Follow Up Care/Instructions Patient Instructions None needed. Anesthesiology Discharge Order Discharge Order Patient is doing well, no complaints, stable vital signs, no apparent adverse anesthesia problems. No complications reported per nursing. JOSE BURKS CRNA Jan 11, 2021 15:56
[2021-01-11] MEDS: GABAPENTIN 300 MG (NEURONTIN) CAP PO SCH (20:27)
[2021-01-11] MEDS: rOPINIRole 0.25 MG (REQUIP) TAB PO SCH (20:28)
[2021-01-11] MEDS: LORATADINE (CLARITIN) 10 MG TAB PO SCH (20:28)
[2021-01-12] MEDS: RT-ALBUTEROL HFA 8.5 GM INHALER IH SCH ×2 (03:36→07:47)
[2021-01-12] MEDS: PANTOPRAZOLE 40 MG (PROTONIX) TAB PO SCH (05:52)
[2021-01-12] MEDS: LEVOTHYROXINE 25 MCG (LEVOTHROID) TAB PO SCH (05:52)
[2021-01-12 06:37] LABS: BASOPHILS % (AUTO) 1 % (0-10); EOSINOPHILS # (AUTO) 0.3 10^3/uL (0.0-0.3); EOSINOPHILS % (AUTO) 6 % (0-10); HEMATOCRIT 36 % (35-52); LYMPHOCYTES # (AUTO) 2.1 10^3/uL (1.0-4.0); LYMPHOCYTES % (AUTO) 39 % (12-44); MEAN CORPUSCULAR HEMOGLOBIN 30 pg (25-34); MEAN CORPUSCULAR HGB CONC 33 g/dL (32-36); MEAN CORPUSCULAR VOLUME 90 fL (80-99); MEAN PLATELET VOLUME 9.5 fL (9.0-12.2); MONOCYTES # (AUTO) 0.7 10^3/uL (0.0-1.0); MONOCYTES % (AUTO) 13 % (0-12); NEUTROPHILS # (AUTO) 2.3 10^3/uL (1.8-7.8); NEUTROPHILS % (AUTO) 42 % (42-75); PLATELET COUNT 173 10^3/uL (130-400); WHITE BLOOD COUNT 5.4 10^3/uL (4.3-11.0)
[2021-01-12 06:51] LABS: ALBUMIN 2.3 GM/DL (3.2-4.5); POTASSIUM 3.8 MMOL/L (3.6-5.0)
[2021-01-12 06:53] LABS: CALCIUM 7.8 MG/DL (8.5-10.1)
[2021-01-12 06:54] LABS: TOTAL PROTEIN 5.8 GM/DL (6.4-8.2)
[2021-01-12 06:56] LABS: BILIRUBIN,TOTAL 1.5 MG/DL (0.1-1.0)
[2021-01-12 06:57] LABS: PHOSPHORUS 2.5 MG/DL (2.3-4.7)
[2021-01-12 06:58] LABS: CREATININE SERUM 1.28 MG/DL (0.60-1.30)
[2021-01-12 07:00] LABS: MAGNESIUM 1.5 MG/DL (1.6-2.4)
[2021-01-12] MEDS: PROPRANOLOL 20 MG (INDERAL) TABLET PO SCH (07:44)
[2021-01-12] MEDS: SPIRONOLACTONE 25 MG (ALDACTONE) TAB PO SCH (07:44)
[2021-01-12] MEDS: RIFAXIMIN 550 MG TABLET (XIFAXAN) PO SCH ×2 (07:44→21:45)
[2021-01-12] MEDS: LACTULOSE SYRUP 10GM/15ML (ENULOSE) 30ML UDC PO SCH ×4 (07:44→21:46)
[2021-01-12] MEDS: FUROSEMIDE 20 MG (LASIX) TAB PO SCH (07:44)
[2021-01-12] MEDS: RT--FLUTICASONE/SALMETEROL 113-14 (AIRDUO RespiCLICK) IH SCH (07:47)
--- NOTE | 2021-01-12 08:08 | Progress Note - Surgery ---
BRAD ISRAEL 01/12/21 0808: Subjective Date Seen by a Provider: Jan 12, 2021 Time Seen by a Provider: 07:35 Subjective/Events-last exam Pt up and standing upon entry in room. Reports pain around Pleurex catheter site and cough. Pleurex cath site seems to be healing well with no bleeding or draina ge. Denies any fever, chills, nausea, vomiting, diarrhea, or chest pain. Wants Woods catheter out. Objective Exam Vital Signs Date Time Temp Pulse Resp B/P (MAP) Pulse Ox O2 Delivery O2 Flow Rate FiO2 01/12/21 07:52 36.4 73 20 96/55 96 Room Air 01/12/21 07:47 97 Room Air 01/12/21 04:00 36.0 73 16 98/56 94 Room Air 01/12/21 03:36 92 Room Air 01/12/21 00:00 35.8 68 16 93/50 93 Room Air 01/11/21 21:40 93 Room Air 01/11/21 21:39 93 Room Air 01/11/21 20:00 Room Air 01/11/21 20:00 35.8 69 18 92/51 94 Room Air 01/11/21 16:00 36.4 69 18 101/51 93 Room Air 01/11/21 15:30 36.2 22 92/51 (65) 93 Room Air 01/11/21 15:30 Room Air 01/11/21 15:20 28 100/71 (81) 100 Room Air 01/11/21 15:15 Room Air 01/11/21 15:10 24 98/54 (69) 100 Room Air 01/11/21 15:08 36.2 22 99/57 (71) 100 OxyMask 3 01/11/21 15:08 OxyMask 3 01/11/21 12:00 35.7 66 18 105/59 90 Room Air 01/11/21 10:20 90 Room Air I & O 01/12/21 06:59 Intake Total 440 ml Output Total 1300 ml Balance -860 ml Capillary Refill : Less Than 3 SecondsLess Than 3 Seconds General Appearance: No Apparent Distress, Chronically ill HEENT: PERRL/EOMI Neck: Normal Inspection, Non Tender, Supple Respiratory: Chest Non Tender, Lungs Clear, No Respiratory Distress Cardiovascular: Regular Rate, Rhythm Gastrointestinal: soft, distended, tenderness, other (Fluid wave) Extremity: Non Tender, No Calf Tenderness, Pedal Edema Neurologic/Psychiatric: Alert, Oriented x3 Skin: Normal Color, Warm/Dry Results Lab Laboratory Tests 01/12/21 05:49: White Blood Count 5.4, Red Blood Count 4.03, Hemoglobin 12.0, Hematocrit 36, Mean Corpuscular Volume 90, Mean Corpuscular Hemoglobin 30, Mean Corpuscular Hemoglobin Concent 33, Red Cell Distribution Width 18.9H, Platelet Count 173, Mean Platelet Volume 9.5, Immature Granulocyte % (Auto) 0, Neutrophils (%) (Auto) 42, Lymphocytes (%) (Auto) 39, Monocytes (%) (Auto) 13H, Eosinophils (%) (Auto) 6, Basophils (%) (Auto) 1, Neutrophils # (Auto) 2.3, Lymphocytes # (Auto) 2.1, Monocytes # (Auto) 0.7, Eosinophils # (Auto) 0.3, Basophils # (Auto) 0.0, Immature Granulocyte # (Auto) 0.0, Sodium Level 127L, Potassium Level 3.8, Chloride Level 99, Carbon Dioxide Level 16L, Anion Gap 12, Blood Urea Nitrogen 9, Creatinine 1.28, Estimat Glomerular Filtration Rate 43, BUN/Creatinine Ratio 7, Glucose Level 90, Calcium Level 7.8L, Corrected Calcium 9.2, Phosphorus Level 2.5, Magnesium Level 1.5L, Total Bilirubin 1.5H, Aspartate Amino Transf (AST/SGOT) 23, Alanine Aminotransferase (ALT/SGPT) 9, Alkaline Phosphatase 56, Total Protein 5.8L, Albumin 2.3L Microbiology 01/07/21 MRSA Screen - Final, Complete MRSA not isolated 01/07/21 Gram Stain - Final, Complete 01/07/21 Body Fluid Culture - Final, Complete No growth 01/07/21 Urine Culture - Final, Complete NO GROWTH 01/07/21 Blood Culture - Preliminary, Resulted No growth Assessment/Plan Assessment/Plan Assessment/Plan s/p Pleurex catheter placement Symptomatic ascites Altered mental status Hypoxia Cirrhosis Currently NPO Remove Woods catheter Continue to monitor Pleurex cathter site CORETTA STEPHENSON DO 01/12/21 4019: Subjective Subjective/Events-last exam Patient states that she is doing okay. She does have some pain around where the Pleurx catheter was placed otherwise doing well. She is not having any significant abdominal pain due to the distention from the ascites. Patient with no other complaints at this time. She denies any nausea vomiting fever sweats chills shortness of breath or chest pain. Objective Exam General Appearance: No Apparent Distress, Chronically ill HEENT: PERRL/EOMI Neck: Normal Inspection, Non Tender, Supple Respiratory: Chest Non Tender, No Accessory Muscle Use, No Respiratory Distress Cardiovascular: Regular Rate, Rhythm, No JVD Gastrointestinal: soft, distended, tenderness (Around Pleurx catheter site.), other (Fluid wave) Extremity: Non Tender, No Calf Tenderness, Pedal Edema Neurologic/Psychiatric: Alert, Oriented x3 Skin: Normal Color, Warm/Dry Lymphatic: No Adenopathy Assessment/Plan Assessment/Plan Assessment/Plan s/p Pleurex catheter placement Symptomatic ascites Altered mental status Hypoxia Cirrhosis Patient with Pleurx catheter that was placed in the abdomen. Patient can have drained on as-needed basis, anytime when the fluid begins to reaccumulate she can have this drained at that time. Will sign off please call if needed Supervisory-Addendum Brief Verification & Attestation Participated in pt care: history, MDM, physical Personally performed: exam, history, MDM, supervision of care Care discussed with: Medical Student Procedures: n/a Results interpretation: Verified all documentation Verification and Attestation of Medical Student E/M Service A medical student performed and documented this service in my presence. I reviewed and verified all information documented by the medical student and made modifications to such information, when appropriate. I personally performed the physical exam and medical decision making. Coretta Stephenson, Jan 12, 2021,22:13 BRAD ISRAEL Jan 12, 2021 08:08 CORETTA STEPHENSON DO Jan 12, 2021 22:13
--- NOTE | 2021-01-12 11:30 | Physical Therapy Progress Note ---
Therapy Progress Note Patient has refused therapy twice this morning. After the first time Dr. Elkins said to try again after she got her urinary catheter out. Went back and tried again after she got it out and she said she just had a pain pill and didn't want to do anything at that time. Patient educated on the importance of therapy but she continues to refuse and says "maybe tomorrow". Will try back this afternoon. DAIANA DOWD PT Jan 12, 2021 11:30
--- NOTE | 2021-01-12 14:08 | Physical Therapy Daily Note ---
PT Daily Note-Current Subjective Patient in bed pre tx, agrees to PT, has unrated abdominal pain. Appearance Patient in bed post tx with nurse call, phone, tray, all needs met, bed alarm on, visitor in room. Mental Status Patient Orientation: Person, Confused Transfers SCALE: Activities may be completed with or without assistive devices. 3-Ilxrdybvna-veiqauh completes the activity by him/herself with no assistance from a helper. 5-Set-up or Clean-up Assistance-helper sets up or cleans up; patient completes activity. [place] assists only prior to or following the activity. 4-Supervision or Touching Assistance-helper provides verbal cues and/or touching/steadying and/or contact guard assistance as patient completes activity. Assistance may be provided throughout the activity or intermittently. 3-Partial/Moderate Assistance-helper does LESS THAN HALF the effort. [place] lifts, holds or supports trunk or limbs, but provides less than half the effort. 2-Substantial/Maximal Assistance-helper does MORE THAN HALF the effort. [place] lifts or holds trunk or limbs and provides more than half the effort. 1-Xjptpokas-lhufgk does ALL the effort. Patient does none of the effort to complete the activity. Or, the assistance of 2 or more helpers is required for the patient to complete the activity. If activity was not attempted, code reason: 7-Patient Refused. 9-Not Applicable-not attempted and the patient did not perform the activity before the current illness, exacerbation or injury. 10-Not Attempted due to Environmental Limitations-(lack of equipment, weather restraints, etc.). 88-Not Attempted due to Medical Conditions or Safety Concerns. Sit to Lying (QC): 6 Lying to Sitting/Side of Bed(Q: 3 Sit to Stand (QC): 4 Chair/Kby-ju-Sszjj Xfer(QC): 4 Gait Training Distance: 15'x2 Walk 10 feet (QC): 4 Gait Persons Needed: 1 Gait Assistive Device: FWW Patient ambulates from opposite side of the bed to the restroom, uses restroom, no assist needed, ambulates back to the other side of the bed, CGA, no LOB but slow and wandering gait Treatments bed mobility and transfers, ambulation, toileting Assessment Current Status: Fair Progress improving ambulation PT Video Coordinator Goals Assisted Goals PT Video Coordinator Goals Time Frame: Jan 31, 2021 Roll Left & Right (QC): 6 Sit to Lying (QC): 6 Lying-Sitting on Side/Bed(QC): 6 Sit to Stand (QC): 6 Chair/Axu-fk-Ymsre Xfer(QC): 6 Toilet Transfer (QC): 6 Does the Patient Walk: Yes Walk 10 feet (QC): 5 Walk 50ft with 2 Turns (QC): 5 Walk 150 ft (QC): 5 1 Step (curb) (QC): 5 4 Steps (QC): 5 PT Plan Problem List Problem List: Activity Tolerance, Functional Strength, Safety, Balance, Gait, Transfer, Bed Mobility, ROM Treatment/Plan Treatment Plan: Continue Plan of Care Treatment Plan: Bed Mobility, Education, Functional Activity Zheng, Functional Strength, Group Therapy, Gait, Safety, Therapeutic Exercise, Transfers Treatment Duration: Mar 16, 2021 Frequency: 6 times per week Estimated Hrs Per Day: .25 hour per day Safety Risks/Education Patient Education: Gait Training, Transfer Techniques, Correct Positioning, Saf ety Issues Teaching Recipient: Patient Teaching Methods: Demonstration, Discussion Response to Teaching: Reinforcement Needed Time/GCodes Time In: 1331 Time Out: 1348 Total Billed Treatment Time: 17 Total Billed Treatment 1 visit FA DAIANA OLEARY PT Jan 12, 2021 14:08
[2021-01-12 14:26] VITALS: BP 98/54
--- NOTE | 2021-01-12 14:28 | Progress Note - Hospitalist ---
Subjective HPI/CC On Admission Date Seen by Provider: Jan 12, 2021 Time Seen by Provider: 10:15 Cora Ahumada is a 55 year old female with cirrhosis who presented with altered mental status. She is a poor historian due to her clinical condition. She was reportedly found on the floor by a family member or caregiver. She was weak and hypoxic. Her ER workup revealed hepatic encephalopathy and possible pneumonia. She was started on lactulose and antibiotics. She had a diagnostic paracentesis which was negative for spontaneous bacterial peritonitis. Subjective/Events-last exam Pt complaints of leg pain and swelling today. Abd much better. Objective Exam Vital Signs Vital Signs Date Time Temp Pulse Resp B/P (MAP) Pulse Ox O2 Delivery O2 Flow Rate FiO2 01/12/21 11:11 36.2 68 16 98/54 94 Room Air 01/11/21 15:08 3 Capillary Refill : Less Than 3 SecondsLess Than 3 Seconds General Appearance: No Apparent Distress, WD/WN Respiratory: Lungs Clear, No Respiratory Distress Cardiovascular: Regular Rate, Rhythm, No Murmur Gastrointestinal: Normal Bowel Sounds, Non Tender, Soft Neurologic/Psychiatric: Alert, Oriented x3 Results/Procedures Lab Laboratory Tests 01/12/21 05:49 Patient resulted labs reviewed. Imaging: Reviewed Imaging Report Assessment/Plan Assessment and Plan Assess & Plan/Chief Complaint Decompensated hepatic cirrhosis Hepatic encephalopathy End stage liver disease Poor prognosis Ascites Continue Lactulose TeleICU following Consult palliative care, patient interested in palliative care Diagnostic paracentesis without SBP on presentation Surgery following, s/p paracentesis PT/OT Oxycodone for pain Acute kidney injury Creatinine stabilized trend Hypokalemia- resolved DVT prophylaxis: DESMOND Edwards MD Jan 12, 2021 14:28
--- NOTE | 2021-01-12 16:03 | Physician Query Clarification ---
Physician Query-General Query to Physician: Clinical Validation Clarification Dr. Jesús Gar or Dr. Nancy Elkins Sepsis has been documented in the medical record. After study, do you consider Sepsis a clinically valid diagnosis? If not clinically valid, please document "Sepsis ruled out" on the progress notes and/or discharge summary. 1. No, Sepsis is not clinically valid/ruled out 2. Yes, Sepsis is a clinically valid diagnosis 3. Other, with explanation of the clinical findings 4. Clinically undetermined, no explanation for the clinical findings Additional information: Admission VS/LABS: HR 83, RR 24, BP 103/63, SpO2 91% sat on 6 L T 37.0, WBC 9.5 lactic acid 1.46 BC X 2 with no growth, ER treatment normal saline 1 L, cefepime IV Please remember a lack of response to the above will prompt a phone page by CDI/coding staff. In responding to this query, please exercise your independent professional judgment. The purpose of this communication is to more accurately reflect the complexity of your patients condition. The fact that a question is asked does not imply that any particular answer is desired or expected. Thank you for timely response to this clarification. Matilde Monahan MSN, RN Clinical Flat Machine Cutter PH [email or web address] PHYSICIAN RESPONSE: Based on the clinical findings in the record, please respond to the query above on this document as an addendum. Physician Response: Physician Response 1 If you have questions please contact: Bonsai Culturist: Ext: Thank you for your time and cooperation. Clinical Flat Machine Cutter/Bonsai Culturist This is a permanent part of the medical record MATILDE MONAHAN Jan 12, 2021 16:03 GERALD GAR MD Jan 14, 2021 09:27
[2021-01-12] MEDS ORDERED: ALPRAZolam 1 MG (XANAX) TAB PO ONE (20:45)
[2021-01-12] MEDS: GABAPENTIN 300 MG (NEURONTIN) CAP PO SCH (21:45)
[2021-01-12] MEDS: rOPINIRole 0.25 MG (REQUIP) TAB PO SCH (21:45)
[2021-01-12] MEDS: LORATADINE (CLARITIN) 10 MG TAB PO SCH (21:45)
--- NOTE | 2021-01-13 03:50 | OPERATIVE REPORT ---
DATE OF SERVICE: 01/11/2021 PREOPERATIVE DIAGNOSIS: Recurrent symptomatic ascites. POSTOPERATIVE DIAGNOSIS: Recurrent symptomatic ascites. PROCEDURE: Ultrasound-guided abdominal PleurX catheter placement. SURGEON: Coretta Stephenson DO ANESTHESIA: MAC with local. ESTIMATED BLOOD LOSS: Minimal. COMPLICATIONS: None. INDICATIONS: The patient is a 55-year-old female with recurrent symptomatic ascites. She understands risks and benefits of procedure and wished to proceed with procedure. Consent was signed in the chart. DESCRIPTION OF PROCEDURE: The patient was taken to the operating suite. She was prepped and draped in sterile fashion. Ultrasound was used to isolate the largest pocket. Local anesthetic was infiltrated and the Angiocath needle was inserted through the abdominal wall until straw-colored fluid was withdrawn. The needle was removed, and the guidewire was inserted and then the angiocatheter was removed. A small incision was made at the insertion point. At this point, the wire was secured. Lidocaine was used to anesthetize a tunneling tract and a small incision was made as well where the PleurX catheter could be tunneled from here to the insertion point of the wire. Once this was done, the catheter was tunneled, and serial dilations were made over the wire and the wire removed once the dilator sheath was placed. The dilator was then removed. The catheter was placed in the sheath and the sheath was then removed. The catheter was then secured with 3-0 silk suture. The insertion point was closed with 3-0 absorbable suture. A total of 1 liter of ascitic fluid was withdrawn. The abdomen was then washed and dried. Skin Affix was placed over the incision and sterile bandage was placed over the exit of the PleurX catheter. The patient tolerated procedure well without any complications. She was taken to recovery room in stable condition. Job ID: [id number] DocumentID: [id number] Dictated Date: 01/12/2021 20:29:28 Gas Fitter Date: 01/13/2021 03:50:15 Dictated By: CORETTA STEPHENSON DO
[2021-01-13] MEDS: LEVOTHYROXINE 25 MCG (LEVOTHROID) TAB PO SCH (06:38)
[2021-01-13] MEDS: PANTOPRAZOLE 40 MG (PROTONIX) TAB PO SCH (06:38)
[2021-01-13] MEDS: RT--FLUTICASONE/SALMETEROL 113-14 (AIRDUO RespiCLICK) IH SCH ×3 (06:43→18:54)
[2021-01-13 07:08] LABS: BASOPHILS % (AUTO) 1 % (0-10); EOSINOPHILS # (AUTO) 0.3 10^3/uL (0.0-0.3); EOSINOPHILS % (AUTO) 5 % (0-10); HEMATOCRIT 35 % (35-52); HEMOGLOBIN 11.7 g/dL (11.5-16.0); LYMPHOCYTES # (AUTO) 2.3 10^3/uL (1.0-4.0); LYMPHOCYTES % (AUTO) 41 % (12-44); MEAN CORPUSCULAR HEMOGLOBIN 30 pg (25-34); MEAN CORPUSCULAR HGB CONC 34 g/dL (32-36); MEAN CORPUSCULAR VOLUME 89 fL (80-99); MONOCYTES # (AUTO) 0.6 10^3/uL (0.0-1.0); MONOCYTES % (AUTO) 10 % (0-12); NEUTROPHILS # (AUTO) 2.5 10^3/uL (1.8-7.8); NEUTROPHILS % (AUTO) 43 % (42-75); PLATELET COUNT 188 10^3/uL (130-400); WHITE BLOOD COUNT 5.8 10^3/uL (4.3-11.0)
[2021-01-13 07:37] LABS: ALBUMIN 2.4 GM/DL (3.2-4.5); BILIRUBIN,TOTAL 1.5 MG/DL (0.1-1.0); CALCIUM 7.9 MG/DL (8.5-10.1); CREATININE SERUM 1.23 MG/DL (0.60-1.30); MAGNESIUM 1.4 MG/DL (1.6-2.4); PHOSPHORUS 3.2 MG/DL (2.3-4.7); POTASSIUM 3.9 MMOL/L (3.6-5.0)
[2021-01-13] MEDS: RIFAXIMIN 550 MG TABLET (XIFAXAN) PO SCH ×2 (08:49→20:46)
[2021-01-13] MEDS: ALPRAZolam 0.5 MG (XANAX) TAB PO SCH ×2 (08:49→20:46)
[2021-01-13] MEDS: PROPRANOLOL 20 MG (INDERAL) TABLET PO SCH (08:49)
[2021-01-13] MEDS: LACTULOSE SYRUP 10GM/15ML (ENULOSE) 30ML UDC PO SCH ×4 (08:49→20:46)
[2021-01-13] MEDS: FUROSEMIDE 20 MG (LASIX) TAB PO SCH (08:49)
[2021-01-13] MEDS: SPIRONOLACTONE 25 MG (ALDACTONE) TAB PO SCH (08:50)
--- NOTE | 2021-01-13 10:31 | Progress Note - Hospitalist ---
Subjective HPI/CC On Admission Date Seen by Provider: Jan 13, 2021 Time Seen by Provider: 10:30 Cora Ahumada is a 55 year old female with cirrhosis who presented with altered mental status. She is a poor historian due to her clinical condition. She was reportedly found on the floor by a family member or caregiver. She was weak and hypoxic. Her ER workup revealed hepatic encephalopathy and possible pneumonia. She was started on lactulose and antibiotics. She had a diagnostic paracentesis which was negative for spontaneous bacterial peritonitis. Subjective/Events-last exam Pt reports having some pain in her abdomen. Just drained her catheter and 1.5L came off. Palliative care nurse at bedside. Patient requesting [facility] hosp[facility] meeting to discuss enrollment. Objective Exam Vital Signs Vital Signs Date Time Temp Pulse Resp B/P (MAP) Pulse Ox O2 Delivery O2 Flow Rate FiO2 01/13/21 08:09 92 Room Air 01/13/21 00:00 36.3 74 18 108/63 01/11/21 15:08 3 Capillary Refill : Less Than 3 SecondsLess Than 3 Seconds General Appearance: No Apparent Distress, Chronically ill, Cachetic Respiratory: Lungs Clear, No Respiratory Distress Cardiovascular: Regular Rate, Rhythm, No Murmur Extremity: Swelling Neurologic/Psychiatric: Alert, Oriented x3 Results/Procedures Lab Laboratory Tests 01/13/21 06:12 Patient resulted labs reviewed. Imaging: Reviewed Imaging Report Assessment/Plan Assessment and Plan Assess & Plan/Chief Complaint Decompensated hepatic cirrhosis Hepatic encephalopathy End stage liver disease Poor prognosis Ascites Continue Lactulose Consult palliative care, patient interested in palliative care- Hospice to meet with her today Diagnostic paracentesis without SBP on presentation Surgery following, s/p paracentesis, drained another 1.5L this AM PT/OT Oxycodone for pain has not been helping per patient, switch to oral morphine Acute kidney injury Creatinine stabilized Hypokalemia- resolved DVT prophylaxis: Heparin DESMOND LYNCH MD Jan 13, 2021 10:31
--- NOTE | 2021-01-13 11:50 | Physical Therapy Daily Note ---
PT Daily Note-Current Subjective Patient agrees to PT. Mental Status Patient Orientation: Person, Time, Situation Transfers SCALE: Activities may be completed with or without assistive devices. 2-Cpjctxulnr-fwllcnd completes the activity by him/herself with no assistance from a helper. 5-Set-up or Clean-up Assistance-helper sets up or cleans up; patient completes activity. [place] assists only prior to or following the activity. 4-Supervision or Touching Assistance-helper provides verbal cues and/or touching/steadying and/or contact guard assistance as patient completes activity. Assistance may be provided throughout the activity or intermittently. 3-Partial/Moderate Assistance-helper does LESS THAN HALF the effort. [place] lifts, holds or supports trunk or limbs, but provides less than half the effort. 2-Substantial/Maximal Assistance-helper does MORE THAN HALF the effort. [place] lifts or holds trunk or limbs and provides more than half the effort. 0-Qzczrhqpe-sdhhxr does ALL the effort. Patient does none of the effort to c omplete the activity. Or, the assistance of 2 or more helpers is required for the patient to complete the activity. If activity was not attempted, code reason: 7-Patient Refused. 9-Not Applicable-not attempted and the patient did not perform the activity before the current illness, exacerbation or injury. 10-Not Attempted due to Environmental Limitations-(lack of equipment, weather restraints, etc.). 88-Not Attempted due to Medical Conditions or Safety Concerns. Sit to Lying (QC): 6 Lying to Sitting/Side of Bed(Q: 6 Sit to Stand (QC): 4 (SBA) Gait Training Does the Patient Walk?: Yes Distance: 225' Walk 10 feet (QC): 4 (SBA) Walk 50 ft with 2 Turns(QC): 4 (SBA) Walk 150 ft (QC): 4 (SBA) Gait Assistive Device: FWW safe and functional with no deviation Assessment Patient returned to bed with bed alarm activated. Increase activity as tolerated by patient. PT Web Press Roll Tender Goals Web Press Roll Tender Goals PT Web Press Roll Tender Goals Time Frame: Jan 31, 2021 Roll Left & Right (QC): 6 Sit to Lying (QC): 6 Lying-Sitting on Side/Bed(QC): 6 Sit to Stand (QC): 6 Chair/Ziu-vf-Acncf Xfer(QC): 6 Toilet Transfer (QC): 6 Does the Patient Walk: Yes Walk 10 feet (QC): 5 Walk 50ft with 2 Turns (QC): 5 Walk 150 ft (QC): 5 1 Step (curb) (QC): 5 4 Steps (QC): 5 PT Plan Treatment/Plan Treatment Plan: Continue Plan of Care Treatment Plan: Bed Mobility, Education, Functional Activity Zheng, Functional Strength, Group Therapy, Gait, Safety, Therapeutic Exercise, Transfers Treatment Duration: Mar 16, 2021 Frequency: 6 times per week Estimated Hrs Per Day: .25 hour per day Time/GCodes Time In: 1050 Time Out: 1104 Total Billed Treatment Time: 14 Total Billed Treatment 1 visit FA 14 min JOE ZARATE PT Jan 13, 2021 11:50
[2021-01-13] MEDS: morphine (ROXINOL) 10 MG/0.5 ML oral conc 0.5 ML PO PRN (14:31)
[2021-01-13] MEDS: rOPINIRole 0.25 MG (REQUIP) TAB PO SCH (20:46)
[2021-01-13] MEDS: GABAPENTIN 300 MG (NEURONTIN) CAP PO SCH (20:46)
[2021-01-13] MEDS: LORATADINE (CLARITIN) 10 MG TAB PO SCH (20:46)
[2021-01-14] MEDS: PANTOPRAZOLE 40 MG (PROTONIX) TAB PO SCH (05:35)
[2021-01-14] MEDS: LEVOTHYROXINE 25 MCG (LEVOTHROID) TAB PO SCH (05:35)
[2021-01-14] MEDS: morphine (ROXINOL) 10 MG/0.5 ML oral conc 0.5 ML PO PRN ×2 (05:35→16:14)
[2021-01-14] MEDS: ALPRAZolam 0.5 MG (XANAX) TAB PO SCH (08:24)
[2021-01-14] MEDS: RIFAXIMIN 550 MG TABLET (XIFAXAN) PO SCH ×2 (08:24→22:05)
[2021-01-14] MEDS: SPIRONOLACTONE 25 MG (ALDACTONE) TAB PO SCH (08:24)
[2021-01-14] MEDS: FUROSEMIDE 20 MG (LASIX) TAB PO SCH (08:24)
[2021-01-14] MEDS: PROPRANOLOL 20 MG (INDERAL) TABLET PO SCH (08:24)
[2021-01-14] MEDS: LACTULOSE SYRUP 10GM/15ML (ENULOSE) 30ML UDC PO SCH ×4 (08:25→22:04)
[2021-01-14] MEDS ORDERED: ALPRAZolam 0.5 MG (XANAX) TAB PO PRN (09:30)
--- NOTE | 2021-01-14 09:53 | Progress Note - Hospitalist ---
Subjective HPI/CC On Admission Date Seen by Provider: Jan 14, 2021 Time Seen by Provider: 09:51 Cora Ahumada is a 55 year old female with cirrhosis who presented with altered mental status. She is a poor historian due to her clinical condition. She was reportedly found on the floor by a family member or caregiver. She was weak and hypoxic. Her ER workup revealed hepatic encephalopathy and possible pneumonia. She was started on lactulose and antibiotics. She had a diagnostic paracentesis which was negative for spontaneous bacterial peritonitis. Subjective/Events-last exam Pt reports doing well. Has a few questions about discharge plan regarding equipment and did not feel she was ready for DC as things weren't in place and she hadn't met yet with [facility]. Objective Exam Vital Signs Vital Signs Date Time Temp Pulse Resp B/P (MAP) Pulse Ox O2 Delivery O2 Flow Rate FiO2 01/14/21 08:10 36.2 74 16 108/55 92 Room Air 01/11/21 15:08 3 Capillary Refill : Less Than 3 SecondsLess Than 3 Seconds General Appearance: No Apparent Distress, Chronically ill Respiratory: Lungs Clear, No Respiratory Distress Cardiovascular: Regular Rate, Rhythm, No Murmur Gastrointestinal: Normal Bowel Sounds, Soft Neurologic/Psychiatric: Alert, Oriented x3 Results/Procedures Lab Patient resulted labs reviewed. Imaging: Reviewed Imaging Report Assessment/Plan Assessment and Plan Assess & Plan/Chief Complaint Decompensated hepatic cirrhosis Hepatic encephalopathy End stage liver disease Poor prognosis Ascites Continue Lactulose Consult palliative care, patient interested in palliative care- [facility] to meet with her today Plan for DC tomorrow Diagnostic paracentesis without SBP on presentation Surgery following, s/p paracentesis and drain placement, drain prn PT/OT Acute kidney injury Creatinine stabilized Hypokalemia- resolved DVT prophylaxis: Heparin DESMOND LYNCH MD Jan 14, 2021 09:53
[2021-01-14] MEDS ORDERED: LACT20SO2 PO (09:56)
[2021-01-14] MEDS ORDERED: MORP100S7 PO (09:56)
[2021-01-14] MEDS ORDERED: RIFA550T PO (09:56)
[2021-01-14] MEDS: RT--FLUTICASONE/SALMETEROL 113-14 (AIRDUO RespiCLICK) IH SCH ×2 (10:39→21:26)
[2021-01-14] MEDS: GABAPENTIN 300 MG (NEURONTIN) CAP PO SCH (22:04)
[2021-01-14] MEDS: LORATADINE (CLARITIN) 10 MG TAB PO SCH (22:05)
[2021-01-14] MEDS: rOPINIRole 0.25 MG (REQUIP) TAB PO SCH (22:05)
[2021-01-15] MEDS: morphine (ROXINOL) 10 MG/0.5 ML oral conc 0.5 ML PO PRN ×4 (02:25→23:34)
[2021-01-15] MEDS: LEVOTHYROXINE 25 MCG (LEVOTHROID) TAB PO SCH (06:17)
[2021-01-15] MEDS: PANTOPRAZOLE 40 MG (PROTONIX) TAB PO SCH (06:17)
[2021-01-15] MEDS: PROPRANOLOL 20 MG (INDERAL) TABLET PO SCH (08:17)
[2021-01-15] MEDS: RIFAXIMIN 550 MG TABLET (XIFAXAN) PO SCH ×2 (08:17→21:56)
[2021-01-15] MEDS: SPIRONOLACTONE 25 MG (ALDACTONE) TAB PO SCH (08:18)
[2021-01-15] MEDS: LACTULOSE SYRUP 10GM/15ML (ENULOSE) 30ML UDC PO SCH ×4 (08:18→21:56)
[2021-01-15] MEDS: FUROSEMIDE 20 MG (LASIX) TAB PO SCH (08:18)
[2021-01-15] MEDS: RT--FLUTICASONE/SALMETEROL 113-14 (AIRDUO RespiCLICK) IH SCH ×2 (09:26→20:47)
--- NOTE | 2021-01-15 10:15 | Progress Note - Hospitalist ---
Subjective HPI/CC On Admission Date Seen by Provider: Jan 15, 2021 Time Seen by Provider: 10:08 Cora Ahumada is a 55 year old female with cirrhosis who presented with altered mental status. She is a poor historian due to her clinical condition. She was reportedly found on the floor by a family member or caregiver. She was weak and hypoxic. Her ER workup revealed hepatic encephalopathy and possible pneumonia. She was started on lactulose and antibiotics. She had a diagnostic paracentesis which was negative for spontaneous bacterial peritonitis. Subjective/Events-last exam Pt is awake but more confused this morning. Had just have breakfast tray delivered but thought it was dinner. Offered to help her get set up to eat and she declined stating she needed pain medication first. Objective Exam Vital Signs Vital Signs Date Time Temp Pulse Resp B/P (MAP) Pulse Ox O2 Delivery O2 Flow Rate FiO2 01/15/21 09:26 92 Room Air 01/15/21 08:41 36.6 73 14 115/52 01/11/21 15:08 3 Capillary Refill : Less Than 3 SecondsLess Than 3 Seconds General Appearance: No Apparent Distress, Chronically ill Respiratory: Lungs Clear, No Respiratory Distress Cardiovascular: Regular Rate, Rhythm, No Murmur Gastrointestinal: Non Tender, Soft, Distended (mild. improved from previous still) Neurologic/Psychiatric: Alert, Other (oriented to person and place but not time) Results/Procedures Lab Patient resulted labs reviewed. Imaging: Reviewed Imaging Report Assessment/Plan Assessment and Plan Assess & Plan/Chief Complaint Decompensated hepatic cirrhosis Hepatic encephalopathy End stage liver disease Poor prognosis Ascites Continue Lactulose Consult palliative care, patient interested in palliative care- [place] to meet with her today Diagnostic paracentesis without SBP on presentation Surgery following, s/p paracentesis and drain placement, drain prn PT/OT Only had 1 BM yesterday, recheck ammonia Does not appear safe for DC today due to mentation DC oxycodone and attempt to control pain with morphine only and changed Xanax to prn only instead of scheduled Acute kidney injury Creatinine stabilized Hypomagnesemia Replace Hypokalemia- resolved DVT prophylaxis: Heparin DESMOND LYNCH MD Jan 15, 2021 10:15
[2021-01-15] MEDS: MAGNESIUM 1 GM/100 ML IVPB 100 ML IV SCH ×2 (10:24→12:56)
--- NOTE | 2021-01-15 11:47 | Physical Therapy Progress Note ---
Therapy Progress Note Attempted to see Pt at Dr's request. Pt in bed, adamantly refusing to participate with PT. "I have been up walking all day". Educated Pt on importance of participating with therapy. Pt reports "I promise on my mother's grave, I will get someone to walk me tomorrow". RN to bedside to encourage Pt to participate as well, continues to decline. AMELIE HULL DPT Jan 15, 2021 11:47
[2021-01-15] MEDS: rOPINIRole 0.25 MG (REQUIP) TAB PO SCH (21:56)
[2021-01-15] MEDS: LORATADINE (CLARITIN) 10 MG TAB PO SCH (21:56)
[2021-01-15] MEDS: GABAPENTIN 300 MG (NEURONTIN) CAP PO SCH (21:57)
[2021-01-16] MEDS: morphine (ROXINOL) 10 MG/0.5 ML oral conc 0.5 ML PO PRN ×3 (03:40→21:08)
[2021-01-16] MEDS: LEVOTHYROXINE 25 MCG (LEVOTHROID) TAB PO SCH (06:01)
[2021-01-16] MEDS: PANTOPRAZOLE 40 MG (PROTONIX) TAB PO SCH (06:01)
[2021-01-16 06:28] LABS: HEMOGLOBIN 11.3 g/dL (11.5-16.0); MEAN PLATELET VOLUME 10.2 fL (9.0-12.2); WHITE BLOOD COUNT 5.4 10^3/uL (4.3-11.0)
[2021-01-16 06:43] LABS: POTASSIUM 4.1 MMOL/L (3.6-5.0)
[2021-01-16 06:48] LABS: CREATININE SERUM 1.02 MG/DL (0.60-1.30)
[2021-01-16] MEDS: RT--FLUTICASONE/SALMETEROL 113-14 (AIRDUO RespiCLICK) IH SCH ×2 (07:27→20:38)
[2021-01-16] MEDS: LACTULOSE SYRUP 10GM/15ML (ENULOSE) 30ML UDC PO SCH ×4 (08:15→21:01)
[2021-01-16] MEDS: PROPRANOLOL 20 MG (INDERAL) TABLET PO SCH ×2 (08:15→09:00)
[2021-01-16] MEDS: FUROSEMIDE 20 MG (LASIX) TAB PO SCH (08:15)
[2021-01-16] MEDS: SPIRONOLACTONE 25 MG (ALDACTONE) TAB PO SCH (08:15)
[2021-01-16] MEDS: RIFAXIMIN 550 MG TABLET (XIFAXAN) PO SCH ×2 (08:15→21:02)
--- NOTE | 2021-01-16 10:23 | Progress Note - Hospitalist ---
Subjective HPI/CC On Admission Date Seen by Provider: Jan 16, 2021 Time Seen by Provider: 10:20 Cora Ahumada is a 55 year old female with cirrhosis who presented with altered mental status. She is a poor historian due to her clinical condition. She was reportedly found on the floor by a family member or caregiver. She was weak and hypoxic. Her ER workup revealed hepatic encephalopathy and possible pneumonia. She was started on lactulose and antibiotics. She had a diagnostic paracentesis which was negative for spontaneous bacterial peritonitis. Subjective/Events-last exam Patient denies any complaints today. laying in bed. Denies pain for the first time in a few days to me. Has no needs. Plans to get up and walk later today but feels she's been walking well. Objective Exam Vital Signs Vital Signs Date Time Temp Pulse Resp B/P (MAP) Pulse Ox O2 Delivery O2 Flow Rate FiO2 01/16/21 08:00 Room Air 01/16/21 07:53 36.4 66 16 99/58 96 01/11/21 15:08 3 Capillary Refill : Less Than 3 SecondsLess Than 3 Seconds General Appearance: No Apparent Distress, Chronically ill, Cachetic Respiratory: Lungs Clear, No Respiratory Distress Cardiovascular: Regular Rate, Rhythm, No Murmur Neurologic/Psychiatric: Alert, Oriented x3 Results/Procedures Lab Laboratory Tests 01/16/21 06:18 Patient resulted labs reviewed. Imaging: Reviewed Imaging Report Assessment/Plan Assessment and Plan Assess & Plan/Chief Complaint Decompensated hepatic cirrhosis Hepatic encephalopathy End stage liver disease Poor prognosis Ascites Continue Lactulose Consult palliative care, patient interested in palliative care- [place] to meet with her today Diagnostic paracentesis without SBP on presentation Surgery following, s/p paracentesis and drain placement, drain prn PT/OT Ammonia level down from admission adn 3 BMs yesterday Does not appear safe for DC today due to mentation still but hopeful to clear more still as she is very opposed to NH placement DC oxycodone and attempt to control pain with morphine only and changed Xanax to prn only instead of scheduled Acute kidney injury Creatinine stabilized Hypomagnesemia Replaced Hypokalemia- resolved DVT prophylaxis: Heparin DESMOND LYNCH MD Jan 16, 2021 10:23
[2021-01-16] MEDS: GABAPENTIN 300 MG (NEURONTIN) CAP PO SCH (21:01)
[2021-01-16] MEDS: LORATADINE (CLARITIN) 10 MG TAB PO SCH (21:02)
[2021-01-16] MEDS: rOPINIRole 0.25 MG (REQUIP) TAB PO SCH (21:04)
[2021-01-17] MEDS: morphine (ROXINOL) 10 MG/0.5 ML oral conc 0.5 ML PO PRN ×3 (01:48→09:49)
[2021-01-17] MEDS: LEVOTHYROXINE 25 MCG (LEVOTHROID) TAB PO SCH (05:39)
[2021-01-17] MEDS: PANTOPRAZOLE 40 MG (PROTONIX) TAB PO SCH (05:40)
--- NOTE | 2021-01-17 07:06 | Physical Therapy Progress Note ---
Therapy Progress Note Patient to dismiss to home on hospice 01/14/21 per SW and physician, however, did not due to change in status with inability to return to home requiring facility placement per report from weekend PT. Services were not rendered 01/14/21 due to DC. PT resumed on 01/15/21, however, patient declined therapy. PT will resume on this date. JOE ZARATE PT Jan 17, 2021 07:06
[2021-01-17] MEDS: RT--FLUTICASONE/SALMETEROL 113-14 (AIRDUO RespiCLICK) IH SCH (07:45)
[2021-01-17] MEDS: FUROSEMIDE 20 MG (LASIX) TAB PO SCH (08:01)
[2021-01-17] MEDS: PROPRANOLOL 20 MG (INDERAL) TABLET PO SCH (08:01)
[2021-01-17] MEDS: RIFAXIMIN 550 MG TABLET (XIFAXAN) PO SCH (08:01)
[2021-01-17] MEDS: SPIRONOLACTONE 25 MG (ALDACTONE) TAB PO SCH (08:02)
[2021-01-17] MEDS: LACTULOSE SYRUP 10GM/15ML (ENULOSE) 30ML UDC PO SCH (08:02)
[2021-01-17] MEDS ORDERED: ONDANSETRON 4 MG/2 ML (SDV) Z0FRAN IVP ONE (09:45)
[2021-01-17 11:18] VITALS: BP 112/58
--- NOTE | 2021-01-17 11:18 | Discharge Summary ---
Discharge Summary Hospital Course Problems/Dx: (1) End-stage liver disease Status: Acute (2) Poor prognosis Status: Acute (3) Decompensated hepatic cirrhosis Status: Acute (4) Hepatic encephalopathy Status: Acute (5) Abdominal ascites Status: Acute Qualifiers: Qualified Codes: K70.31 - Alcoholic cirrhosis of liver with ascites (6) Acute renal failure Status: Acute Qualifiers: Qualified Codes: N17.9 - Acute kidney failure, unspecified (7) Hypokalemia Status: Acute Hospital Course Date of Admission: Jan 07, 2021 at 13:04 Admission Diagnosis : Decompensated hepatic cirrhosis with hepatic encephalopathy and ascites Family Physician/Provider: Luis Mandel DO Date of Discharge: 01/17/21 Discharge Diagnosis: End stage liver disease, decompensated hepatic cirrhosis with hepatic encephalopathy and ascites Hospital Course: Cora Ahumada is a 55-year-old female with end-stage liver disease secondary to alcoholic cirrhosis who was admitted with hepatic encephalopathy. She was started on lactulose and rifaximin and her encephalopathy improved. She also had ascites and underwent a Pleurx placement. She chose to pursue hospice and was set up with [facility] at the time of discharge. Labs and Pending Lab Test: Microbiology 01/07/21 MRSA Screen - Final, Complete MRSA not isolated 01/07/21 Gram Stain - Final, Complete 01/07/21 Body Fluid Culture - Final, Complete No growth 01/07/21 Urine Culture - Final, Complete NO GROWTH 01/07/21 Blood Culture - Final, Complete No growth Home Meds Active Lactulose 20 Gm/30 Ml Solution 20 Gm PO BID Morphine Conc. 20mg/ml (Morphine Sulfate) 100 Mg/5 Ml Solution 5 Mg PO Q4H PRN Xifaxan (Rifaximin) 550 Mg Tablet 550 Mg PO BID Reported Furosemide 20 Mg Tablet 20 Mg PO DAILY Alprazolam 0.5 Mg Tablet 0.5 Mg PO BID Spironolactone 50 Mg Tablet 50 Mg PO DAILY B-1 (Thiamine HCl) 100 Mg Tablet 100 Mg PO DAILY Folic Acid 1 Mg Tablet 1 Mg PO DAILY Proair Hfa (Albuterol Sulfate) 1 Puff Puff 2 Puff INH Q4H PRN Sucralfate 1 Gm Tablet 1 Gm PO ACHS Propranolol HCl 60 Mg Tablet 60 Mg PO DAILY Neurontin (Gabapentin) 300 Mg Capsule 600 Mg PO HS TAKES 2 (300MG) CAPS Cetirizine HCl 10 Mg Tablet 10 Mg PO HS Levothyroxine Sodium 25 Mcg Tablet 25 Mcg PO DAILY Pantoprazole Sodium 40 Mg Tablet.dr 40 Mg PO DAILY Advair 250-50 Diskus (Fluticasone/Salmeterol) 1 Each Blst.w.dev 1 Puff INH BID Assessment/Pt Instructions You are being set up with [facility]. Contact them with any questions or concerns. Discharge Planning: >30 minutes discharge planning Discharge Instructions Discharge Diet: No Restrictions Activity as Tolerated: Yes Discharge Physical Examination Vital Signs Vital Signs Date Time Temp Pulse Resp B/P (MAP) Pulse Ox O2 Delivery O2 Flow Rate FiO2 01/17/21 09:45 Room Air 01/17/21 08:00 36.5 68 20 112/58 94 01/11/21 15:08 3 General Appearance: No Apparent Distress, Anxious, Chronically ill Respiratory: Lungs Clear, Normal Breath Sounds, No Respiratory Distress Cardiovascular: Regular Rate, Rhythm, No Edema, No Murmur Gastrointestinal: Soft, Distended, Other (Pleurx in place right lower quadrant) Extremity: Normal Inspection, Non Tender, No Pedal Edema Neurologic/Psychiatric: Alert, No Motor/Sensory Deficits Allergies: Coded Allergies: codeine (Verified Allergy, Unknown, Pt has received Lortab in the past, 01/13/21) fentanyl (Verified Adverse Reaction, Unknown, PATIENT REQUEST NOT TO HAVE IT , 11/08/19) Copy Copies To 1: LUIS MANDEL DO Discharge Summary Date of Admission Jan 07, 2021 at 13:04 Date of Discharge Discharge Date: Jan 14, 2021 Discharge Time: 10:00 Admission Diagnosis Decompensated hepatic cirrhosis Consults/Procedures Consulations Surgery Procedures Pleurx placement Comfort Measures/ End of Life Care: Pallative Care Discharge Diagnosis Decompensated hepatic cirrhosis Hepatic encephalopathy End stage liver disease Poor prognosis (1) End-stage liver disease Status: Acute (2) Poor prognosis Status: Acute (3) Decompensated hepatic cirrhosis Status: Acute (4) Hepatic encephalopathy Status: Acute (5) Abdominal ascites Status: Acute Qualifiers: Qualified Codes: K70.31 - Alcoholic cirrhosis of liver with ascites (6) Acute renal failure Status: Acute Qualifiers: Qualified Codes: N17.9 - Acute kidney failure, unspecified (7) Hypokalemia Status: Acute GERALD GAR MD Jan 17, 2021 11:17
--- NOTE | 2021-01-17 11:43 | Physical Therapy Progress Note ---
Therapy Progress Note Patient refused PT stating, "I just want to stay in bed." PT attempted to educate patient on importance of increasing activity to improve strength, however, patient continued to decline. Per RN, patient will dismiss to home with hospice on this date. 1 ref ([id number]) JOE ZARATE PT Jan 17, 2021 11:43
== END 2021-01-17 12:43 | disposition hospice, home (50) | DRG 432 ==
LOC: EDUNIT# 11:21 → ER 11:22 → ICU 13:04 → 4TH 01-10 14:09
PROVIDERS: ADMIT Internal Medicine; ATTEND Internal Medicine
PROC: 0W9G3ZZ Drainage of Peritoneal Cavity, Percutaneous Approach (ICD-10-PCS; 2021-01-07)
PROC: 0W9G30Z Drainage of Peritoneal Cavity with Drainage Device, Percutaneous Approach (ICD-10-PCS; principal; 2021-01-11 14:31)
DX: K70.31 Alcoholic cirrhosis of liver with ascites (principal); J96.01 Acute respiratory failure with hypoxia; N17.9 Acute kidney failure, unspecified; K70.40 Alcoholic hepatic failure without coma; J44.9 Chronic obstructive pulmonary disease, unspecified; I10 Essential (primary) hypertension; F17.210 Nicotine dependence, cigarettes, uncomplicated; B19.20 Unspecified viral hepatitis C without hepatic coma; Z20.822 Contact with and (suspected) exposure to COVID-19; K21.9 Gastro-esophageal reflux disease without esophagitis; M19.91 Primary osteoarthritis, unspecified site; M79.7 Fibromyalgia; E87.6 Hypokalemia; E83.42 Hypomagnesemia; F41.9 Anxiety disorder, unspecified; F90.9 Attention-deficit hyperactivity disorder, unspecified type; R01.1 Cardiac murmur, unspecified; Z79.1 Long term (current) use of non-steroidal anti-inflammatories (NSAID); Z88.5 Allergy status to narcotic agent; Z82.49 Family history of ischemic heart disease and other diseases of the circulatory system
CPT/HCPCS: 36415; 51702; 70450; 71045; 80048; 80053; 81000; 82140; 82805; 82945; 83605; 83735; 83880; 84100; 84132; 84145; 84157; 84300; 84484; 85025; 85027; 85610; 85730; 87040; 87070; 87081; 87088; 87205; 87636; 89051; 93005; 94640; 94760; 96361; 96374; 99291

== ENCOUNTER 2021-01-21 10:55 | Inpatient (IN) | payer MEDICARE, MEDICAID ==
[~2021-01-21] VITALS: Ht 165 cm; Wt 58.8 kg
[~2021-01-21 10:55] MED LIST changes: +FOLI1TAB33 PO; +LACT20SO2 PO; +MORP100S7 PO; +PENI500T PO; +RIFA550T PO; +SPIR50TA4 PO; +THIA100T66 PO; +THIA100T80 PO
[2021-01-21] MEDS ORDERED: LORazepam INJ 2 MG/ML (ATIVAN) VIAL ONE (11:16)
--- NOTE | 2021-01-21 11:34 | ED General ---
General Chief Complaint: General Problems/Pain Stated Complaint: BLEEDING Nursing Triage Note: PT TO [facility]. [facility] HOSPICE WORKER CALLED REPORTING PT WAS ON THE FLOOR COVERED IN BLOOD, LKW WAS 1700 YESTERDAY. EMS REPORTS PT WASNT BLEEDING WHEN THEY GOT THERE AND HAS NO COMPLAINTS. PT IS A&OX4 AT THIS TIME, DENIES PAIN. Source of Information: Patient Exam Limitations: No Limitations History of Present Illness Date Seen by Provider: Jan 21, 2021 Time Seen by Provider: 11:00 Initial Comments To ER by EMS after her hospice worker found her to be on the floor covered in blood. Patient has a history of cirrhosis with esophageal varices. She has chronic ascites within indwelling Pleurx catheter for paracentesis draining. The hospice nurse was coming over to drain her abdomen this morning when she fo und her on the floor. Initial oxygen saturation 79% on room air. She is with [facility]. Timing/Duration: 1-2 Days Severity: Moderate Associated Systoms: Denies Symptoms Allergies and Home Medications Allergies Coded Allergies: codeine (Verified Allergy, Unknown, Pt has received Lortab in the past, 01/13/21) fentanyl (Verified Adverse Reaction, Unknown, PATIENT REQUEST NOT TO HAVE IT , 11/08/19) Patient Home Medication List Home Medication List Reviewed: Yes Albuterol Sulfate (Proair Hfa) 1 Puff Puff, 2 PUFF INH Q4H PRN for SHORTNESS OF BREATH, (Reported) Entered as Reported by: NIR NORTON on 01/10/21 1344 Alprazolam (Alprazolam) 0.5 Mg Tablet, 0.5 MG PO BID, (Reported) Entered as Reported by: NIR NORTON on 01/10/21 1344 Cetirizine HCl (Cetirizine HCl) 10 Mg Tablet, 10 MG PO HS, (Reported) Entered as Reported by: ROSS SANDS on 11/30/20 1553 Fluticasone/Salmeterol (Advair 250-50 Diskus) 1 Each Blst.w.dev, 1 PUFF INH BID, (Reported) Entered as Reported by: SHERYL BERG on 08/16/15 1325 Folic Acid (Folic Acid) 1 Mg Tablet, 1 MG PO DAILY, (Reported) Entered as Reported by: NIR NORTON on 01/10/21 1344 Furosemide (Furosemide) 20 Mg Tablet, 20 MG PO DAILY, (Reported) Entered as Reported by: NIR NORTON on 01/10/21 1344 Gabapentin (Neurontin) 300 Mg Capsule, 600 MG PO HS, (Reported) Entered as Reported by: ROSS SANDS on 11/30/20 1553 Lactulose (Lactulose) 20 Gm/30 Ml Solution, 20 GM PO BID Prescribed by: DESMOND LYNCH on 01/14/21 0956 Levothyroxine Sodium (Levothyroxine Sodium) 25 Mcg Tablet, 25 MCG PO DAILY, (Reported) Entered as Reported by: NYDIA VALENTIN on 06/24/19 0853 Morphine Sulfate (Morphine Conc. 20mg/ml) 100 Mg/5 Ml Solution, 5 MG PO Q4H PRN for PAIN-SEVERE (8-10) Prescribed by: DESMOND LYNCH on 01/14/21 0956 Pantoprazole Sodium (Pantoprazole Sodium) 40 Mg Tablet.dr, 40 MG PO DAILY, (Reported) Entered as Reported by: SHERYL BERG on 08/16/15 1332 Propranolol HCl (Propranolol HCl) 60 Mg Tablet, 60 MG PO DAILY, (Reported) Entered as Reported by: ROSS SANDS on 11/30/20 155 Rifaximin (Xifaxan) 550 Mg Tablet, 550 MG PO BID Prescribed by: DESMOND LYNCH on 01/14/21 0956 Spironolactone (Spironolactone) 50 Mg Tablet, 50 MG PO DAILY, (Reported) Entered as Reported by: NIR NORTON on 01/10/21 1344 Sucralfate (Sucralfate) 1 Gm Tablet, 1 GM PO ACHS, (Reported) Entered as Reported by: NIR NORTON on 01/10/21 1344 Thiamine HCl (B-1) 100 Mg Tablet, 100 MG PO DAILY, (Reported) Entered as Reported by: NIR NORTON on 01/10/21 1344 Discontinued Medications Amlodipine Besylate (Amlodipine Besylate) 10 Mg Tablet, 10 MG PO DAILY, (Reported) Entered as Reported by: SHERYL BERG on 08/16/15 1332 Ropinirole HCl (Ropinirole HCl) 0.25 Mg Tablet, 0.25 MG PO HS, (Reported) Entered as Reported by: ROSS SANDS on 11/30/20 1553 Tramadol HCl (Tramadol HCl) 50 Mg Tablet, 50 MG PO BID PRN for PAIN-MILD, (Re ported) Entered as Reported by: SHERYL BERG on 08/16/15 1325 Review of Systems Review of Systems Constitutional: see HPI, other (Unable to obtain due to altered mental status) EENTM: see HPI Respiratory: no symptoms reported Cardiovascular: no symptoms reported Genitourinary: no symptoms reported Musculoskeletal: no symptoms reported Skin: no symptoms reported Psychiatric/Neurological: No Symptoms Reported Hematologic/Lymphatic: No Symptoms Reported Past Onzghll-Koscjw-Grpswi Hx Patient Social History Tobacco Use?: No Smoking Status: Former Smoker Use of E-Cig and/or Vaping dev: No Substance use?: No Alcohol Use?: No Immunizations Up To Date Tetanus Booster (TDap): More than 5yrs PED Vaccines UTD: No First/Initial COVID19 Vaccinat: unknown Second COVID19 Vaccination Everardo: unknown Seasonal Allergies Seasonal Allergies: Yes Past Medical History Surgery/Hospitalization HX: cirrhosis of liver - PARACENTESIS DRAIN Surgeries: Yes (back) Abdominal, Adenoidectomy, Orthopedic, Tonsillectomy Respiratory: Yes Asthma, COPD Currently Using CPAP: No Currently Using BIPAP: No Cardiac: Yes Heart Murmur, Hypertension Neurological: Yes 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 Disorders: Yes 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 Disorders: Denies CLINICAL RESEARCH PHYSICIAN History: Menopausal Sexually Transmitted Disease: No HIV/AIDS: No Genitourinary: No Kidney Stones Gastrointestinal: Yes (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; ALCOHOLIC GASTRITIS) Gastroesophageal Reflux, Liver Disease/Jaundice, Gastrointestinal Bleed, Esophageal Varices, Hepatitis, Cirrhosis Musculoskeletal: Yes Arthritis, Fibromyalgia, Chronic Back Pain Endocrine: No HEENT: No Cancer: No Psychosocial: Yes ADD/ADHD, Anxiety Integumentary: No Blood Disorders: No Adverse Reaction/Blood Tranf: No Family Medical History Alcoholism G8 SISTER Cardiovascular disease 19 FATHER Colon cancer G8 BROTHER Diabetes mellitus G8 BROTHER Drug abuse G8 SISTER FH: cancer 19 MOTHER (BRAIN) G8 BROTHER Glaucoma 19 FATHER Hypertension 19 FATHER Myocardial infarction 19 FATHER Psychosocial problem 19 FATHER G8 BROTHER G8 SISTER No Family History of: AIDS Abdominal aortic aneurysm Alzheimer's disease Arthritis Asthma Completed stroke Parkinson's disease Respiratory disorder Seizure disorder Severe allergy Thyroid disease No Pertinent Family Hx Physical Exam Vital Signs Vital Signs - First Documented 01/21/21 10:56 Temp 36.2 Pulse 112 Resp 18 B/P (MAP) 92/77 (82) Pulse Ox 87 O2 Delivery OxyMask O2 Flow Rate 10.00 Capillary Refill : Less Than 3 Seconds Height, Weight, BMI Height: 5'4.00" Weight: 127lbs. 4.0oz. 57.957112bg; 21.00 BMI Method:Stated General Appearance: Chronically ill (Appears to be actively dying. Her mouth is covered with dried blood which was down her shirt as well. EMS helped her to change her shirt prior to arrival. On arrival to ER she is on a nonrebreather at 15 L with oxygen saturation of 92%. There is hemoptysis noted. Dried blood in the nose around the mouth and in the mouth. Altered mental status. She is alert but confused. Twitching and jerking movements. Heart rate is 111 sinus and blood pressure is 64/46. I would suspect that she has a ruptured esophageal varix. ), Thin HEENT: PERRL/EOMI, TMs Normal Neck: Full Range of Motion, Normal Inspection Respiratory: No Accessory Muscle Use, No Respiratory Distress Cardiovascular: Normal Peripheral Pulses, Tachycardia Gastrointestinal: Soft, Distended (Drained 500 mL of clear yellow ascites fluid via the Pleurx catheter.) Extremity: Slow Capillary Refill Neurologic/Psychiatric: Alert, Oriented x3 Skin: Normal Color, Warm/Dry, Other (Anasarca with weeping from lower extremities) Progress/Results/Core Measures Suspected Sepsis SIRS Temperature: Pulse: 112 Respiratory Rate: 18 Laboratory Tests 01/21/21 12:20: White Blood Count 11.9H Blood Pressure 92 /77 Mean: 82 Laboratory Tests 01/21/21 12:20: Creatinine 3.53#H, Platelet Count 178 Results/Orders Lab Results Laboratory Tests Test 01/21/21 11:14 01/21/21 12:20 Range/Units SARS-CoV-2 RNA (RT-PCR) Not Detected Not Detecte White Blood Count 11.9 H 4.3-11.0 10^3/uL Red Blood Count 3.38 L 3.80-5.11 10^6/uL Hemoglobin 10.2 L 11.5-16.0 g/dL Hematocrit 31 L 35-52 % Mean Corpuscular Volume 92 80-99 fL Mean Corpuscular Hemoglobin 30 25-34 pg Mean Corpuscular Hemoglobin Concent 33 32-36 g/dL Red Cell Distribution Width 18.0 H 10.0-14.5 % Platelet Count 178 130-400 10^3/uL Mean Platelet Volume 10.7 9.0-12.2 fL Immature Granulocyte % (Auto) 0 % Neutrophils (%) (Auto) 87 H 42-75 % Lymphocytes (%) (Auto) 9 L 12-44 % Monocytes (%) (Auto) 3 0-12 % Eosinophils (%) (Auto) 0 0-10 % Basophils (%) (Auto) 0 0-10 % Neutrophils # (Auto) 10.4 H 1.8-7.8 10^3/uL Lymphocytes # (Auto) 1.1 1.0-4.0 10^3/uL Monocytes # (Auto) 0.3 0.0-1.0 10^3/uL Eosinophils # (Auto) 0.0 0.0-0.3 10^3/uL Basophils # (Auto) 0.0 0.0-0.1 10^3/uL Immature Granulocyte # (Auto) 0.1 0.0-0.1 10^3/uL Neutrophils % (Manual) 80 % Lymphocytes % (Manual) 4 % Monocytes % (Manual) 3 % Eosinophils % (Manual) 2 % Basophils % (Manual) 0 % Metamyelocytes % 2 % Band Neutrophils 9 % Hypochromasia SLIGHT Anisocytosis SLIGHT Sodium Level 125 *L 135-145 MMOL/L Potassium Level 4.4 3.6-5.0 MMOL/L Chloride Level 94 L 98-107 MMOL/L Carbon Dioxide Level 19 L 21-32 MMOL/L Anion Gap 12 5-14 MMOL/L Blood Urea Nitrogen 17 7-18 MG/DL Creatinine 3.53 #H 0.60-1.30 MG/DL Estimat Glomerular Filtration Rate 13 BUN/Creatinine Ratio 5 Glucose Level 95 70-105 MG/DL Calcium Level 7.8 L 8.5-10.1 MG/DL My Orders Orders - IVY HARDY APRN Lorazepam Injection (Ativan Injection) (01/21/21 11:16) Covid 19 Inhouse Test (01/21/21 11:28) Chest 1 View, Ap/Pa Only (01/21/21 11:28) Cbc With Automated Diff (01/21/21 11:34) Basic Metabolic Panel (01/21/21 11:34) Lorazepam Injection (Ativan Injection) (01/21/21 11:45) Manual Differential (01/21/21 12:20) Medications Given in ED Current Medications Medications Dose Ordered Sig/Pino Route Start Time Stop Time Status Last Admin Dose Admin Lorazepam 1 mg ONCE ONCE IVP 01/21/21 11:45 01/21/21 11:46 DC 01/21/21 11:20 1 MG Vital Signs/I&O 01/21/21 10:56 Temp 36.2 Pulse 112 Resp 18 B/P (MAP) 92/77 (82) Pulse Ox 87 O2 Delivery OxyMask O2 Flow Rate 10.00 Capillary Refill : Less Than 3 Seconds Blood Pressure Mean: 82 Departure Communication (Admissions) Family Conversation NAME: AMANDA TILLMAN [facility] REC#: [id number] PT STATUS: REG ER : 1965 PHYSICIAN: IVY HARDY APRN ADMIT DATE: 01/21/21/ER Draft Date of Exam:01/21/21 CHEST 1 VIEW, AP/PA ONLY CLINICAL INDICATION: Patient with shortness of air. Patient was on floor covered with blood. EXAM: Portable chest x-ray upright view. COMPARISONS: Portable chest x-ray dated 01/08/2021. FINDINGS: There is interval development of moderate diffuse patchy infiltrates throughout the right lung. There is development of small infiltrate in the medial left upper lobe region. There is no pleural effusion or pneumothorax. Pulmonary vasculature and cardiac silhouette are within normal limits. There are degenerative spurs involving the spine. IMPRESSION: There is interval development of lung infiltrates throughout the right lung and involving the medial right upper lobe. Aspiration versus infectious infiltrates may be considered. Pulmonary hemorrhage also cannot be completely excluded if patient has hemoptysis. Dictated on workstation # [id number] Dict: 01/21/21 1234 Trans: 01/21/21 1239 [id number]-Spoke with [facility], they cannot authorize general inpatient status admission unless she has an uncontrolled symptom. I then spoke with the patient's skilled worker Marisela at [phone]. Currently the patient only has a skill worker during the day and no one at night. She was found by her skilled care this morning laying on the floor, unknown how long she had been there. Again, she has no one at night. There is no family involved and she lives at home alone. [facility] main office in [place] [phone] to try to authorize a nighttime pattern setter but they are unable to do that at this time. I called [facility] to try to get an emergency abdomen and they will call me back, admission staff is unavailable at this time. I spoke with [facility] [place] and [facility] [place] and they have no bed availability. I spoke with Dr. Persaud, will admit comfort care status.. At this time heart rate is 100 sinus blood pressure is up to 84 systolic without any intervention or fluids from us. She is still restless despite 1 mg of Ativan. Impression Primary Impression: Esophageal varix bleeding Additional Impressions: Hemorrhagic shock End stage liver disease Disposition: ADMITTED INPATIENT Condition: Stable Admissions Decision to Admit Reason: Admit from ER (General) Decision to Admit/Date: Jan 21, 2021 Time/Decision to Admit Time: 12:46 Departure-Patient Inst. Referrals: RIKNU MANDEL DO (PCP/Family) Primary Care Physician IVY HARDY APRN Jan 21, 2021 11:34
[2021-01-21] MEDS ORDERED: LORazepam INJ 2 MG/ML (ATIVAN) VIAL IVP ONE (11:45)
[2021-01-21 12:39] LABS: BASOPHILS % (AUTO) 0 % (0-10); EOSINOPHILS % (AUTO) 0 % (0-10); HEMATOCRIT 31 % (35-52); HEMOGLOBIN 10.2 g/dL (11.5-16.0); LYMPHOCYTES # (AUTO) 1.1 10^3/uL (1.0-4.0); LYMPHOCYTES % (AUTO) 9 % (12-44); MEAN CORPUSCULAR HEMOGLOBIN 30 pg (25-34); MEAN CORPUSCULAR HGB CONC 33 g/dL (32-36); MEAN CORPUSCULAR VOLUME 92 fL (80-99); MEAN PLATELET VOLUME 10.7 fL (9.0-12.2); MONOCYTES # (AUTO) 0.3 10^3/uL (0.0-1.0); MONOCYTES % (AUTO) 3 % (0-12); NEUTROPHILS # (AUTO) 10.4 10^3/uL (1.8-7.8); NEUTROPHILS % (AUTO) 87 % (42-75); PLATELET COUNT 178 10^3/uL (130-400); WHITE BLOOD COUNT 11.9 10^3/uL (4.3-11.0)
--- NOTE | 2021-01-21 12:40 | Diagnostic Imaging Report ---
CLINICAL INDICATION: Patient with shortness of air. Patient was on floor covered with blood. EXAM: Portable chest x-ray upright view. COMPARISONS: Portable chest x-ray dated 01/08/2021. FINDINGS: There is interval development of moderate diffuse patchy infiltrates throughout the right lung. There is development of small infiltrate in the medial left upper lobe region. There is no pleural effusion or pneumothorax. Pulmonary vasculature and cardiac silhouette are within normal limits. There are degenerative spurs involving the spine. IMPRESSION: There is interval development of lung infiltrates throughout the right lung and involving the medial right upper lobe. Aspiration versus infectious infiltrates may be considered. Pulmonary hemorrhage also cannot be completely excluded if patient has hemoptysis. Dictated by: Dictated on workstation # [id number]
[2021-01-21 12:52] LABS: POTASSIUM 4.4 MMOL/L (3.6-5.0)
[2021-01-21 12:53] LABS: CALCIUM 7.8 MG/DL (8.5-10.1)
[2021-01-21 12:58] LABS: CREATININE SERUM 3.53 MG/DL (0.60-1.30)
[2021-01-21 12:59] LABS: ANISOCYTOSIS SLIGHT; BAND NEUTROPHILS 9 %; BASOPHILS % (MANUAL) 0 %; EOSINOPHILS % (MANUAL) 2 %; HYPOCHROMASIA SLIGHT; LYMPHOCYTES % (MANUAL) 4 %; METAMYELOCYTES % 2 %; MONOCYTES % (MANUAL) 3 %; NEUTROPHILS % (MANUAL) 80 %
[2021-01-21 13:07] LABS: INR 1.6 (0.8-1.4); PROTHROMBIN TIME PATIENT 19.2 SEC (12.2-14.7)
[2021-01-21 13:38] VITALS: BP 77/44
[2021-01-21] MEDS ORDERED: LORazepam ORAL CONCENTRATE 2 MG/ML 30 ML (ATIVAN) PO PRN (14:30)
[2021-01-21] MEDS ORDERED: ARTIFICAL TEARS 0.4 ML UNIT DOSE (REFRESH PLUS) OU PRN (14:30)
[2021-01-21] MEDS ORDERED: ACETAMINOPHEN 650 MG SUPP (TYLENOL) PR PRN (14:30)
[2021-01-21] MEDS ORDERED: PROMETHAZINE INJ 25 MG/ML (PHENERGAN) AMP IVP PRN (14:30)
[2021-01-21] MEDS ORDERED: morphine INJ 4 MG/ML 1 ML (VIAL/SYRINGE) IV PRN (14:30)
[2021-01-21] MEDS ORDERED: BISACODYL 10 MG SUPP (DULCOLAX) PR PRN (14:30)
[2021-01-21] MEDS ORDERED: GLYCOPYRROLATE 0.2 MG/ML (ROBINUL) 2 ML VIAL IV PRN (14:30)
[2021-01-21] MEDS ORDERED: ONDANSETRON 4 MG/2 ML (SDV) Z0FRAN IVP PRN (14:30)
[2021-01-21] MEDS ORDERED: SALIVA STIMULANT MOUTH SPRAY (BIOTENE) 1.5 OZ MM PRN (14:30)
[2021-01-21] MEDS ORDERED: ATROPINE 1% OPHTHALMIC SOLN 2 ML SL PRN (14:30)
[2021-01-21] MEDS ORDERED: SCOPOLAMINE 1.5 MG (TRANSDERM-SCOP) PATCH TOP SCH (14:30)
--- NOTE | 2021-01-21 15:16 | Progress Note - Hospitalist ---
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 She is on [facility]. She was found to be laying on the ground in a puddle of blood. She is being admitted on comfort measures only status for end-of-life care. Objective Exam Vital Signs Vital Signs Date Time Temp Pulse Resp B/P (MAP) Pulse Ox O2 Delivery O2 Flow Rate FiO2 01/21/21 13:38 88 8 77/44 OxyMask 10.00 01/21/21 10:56 36.2 87 Capillary Refill : Less Than 3 Seconds General Appearance: No Apparent Distress, Chronically ill Respiratory: Lungs Clear, Normal Breath Sounds, No Respiratory Distress Cardiovascular: Regular Rate, Rhythm, No Edema, No Murmur Gastrointestinal: Normal Bowel Sounds, Soft, Distended Extremity: Normal Inspection, Non Tender, Pedal Edema Neurologic/Psychiatric: Other (Lethargic, Minimally responsive) Skin: Normal Color, Warm/Dry Results/Procedures Lab Laboratory Tests 01/21/21 12:20 Patient resulted labs reviewed. Assessment/Plan Assessment and Plan Assess & Plan/Chief Complaint Comfort measures only status End-stage liver disease Alcoholic cirrhosis Variceal bleeding Hemorrhagic shock Currently on [facility] Admitted for comfort measures only Comfort care order set placed Diagnosis/Problems Diagnosis/Problems (1) Comfort measures only status Status: Acute (2) End-stage liver disease Status: Acute (3) Decompensated hepatic cirrhosis Status: Acute (4) Hemorrhagic shock Status: Acute (5) Poor prognosis Status: Acute (6) Bleeding esophageal varices in alcoholic cirrhosis Status: Acute GERALD GAR MD Jan 21, 2021 15:16
--- NOTE | 2021-01-21 15:17 | History & Physical-Hospitalist ---
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 She is on [facility]. She was found to be laying on the ground in a puddle of blood. She is being admitted on comfort measures only status for end-of-life care. Source: RN/MD Exam Limitations: clinical condition Date Seen 01/21/21 Time Seen by a Provider: 14:00 Attending Physician Gerald Gar MD PCP Luis Ruby DO Referring Physician Date of Admission Jan 21, 2021 at 12:25 Home Medications & Allergies Home Medications Reviewed patient Home Medication Reconciliation performed by pharmacy medication reconciliations library media technician and/or nursing. Patients Allergies have been reviewed. Allergies Allergies Coded Allergies codeine (Verified Allergy, Unknown, Pt has received Lortab in the past, 01/13/21) fentanyl (Verified Adverse Reaction, Unknown, PATIENT REQUEST NOT TO HAVE IT , 11/08/19) Past Lfkbohs-Vyiote-Ewurkk Hx Patient Social History Tobacco Use?: No Smoking Status: Former Smoker Use of E-Cig and/or Vaping dev: No Substance use?: No Alcohol Use?: No Additional Alcohol Comments: FORMER ALCOHOLIC Immunizations Up To Date Date of Influenza Vaccine: Jan 16, 2019 First/Initial COVID19 Vaccinat: unknown Second COVID19 Vaccination Everardo: unknown Tetanus Booster (TDap): Unknown Hepatitis A: No Hepatitis B: No PED Vaccines UTD: No Date of Pneumonia Vaccine: Jul 22, 2008 Seasonal Allergies Seasonal Allergies: Yes Current Status Advance Directives: Yes Communicates: Verbally Primary Language: Latvian Preferred Spoken Language: Latvian Is interpretation needed?: No Past Medical History Surgeries: Abdominal, Adenoidectomy, Orthopedic, Tonsillectomy Asthma, COPD Currently Using CPAP: No Currently Using BIPAP: No Heart Murmur, Hypertension 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 Sexually Transmitted Disease: No HIV/AIDS: No Kidney Stones Gastroesophageal Reflux, Liver Disease/Jaundice, Gastrointestinal Bleed, Esophageal Varices, Hepatitis, Cirrhosis Arthritis, Fibromyalgia, Chronic Back Pain ADD/ADHD, Anxiety Blood Disorders: No Adverse Reaction/Blood Tranf: No Family Medical History Alcoholism G8 SISTER Cardiovascular disease 19 FATHER Colon cancer G8 BROTHER Diabetes mellitus G8 BROTHER Drug abuse G8 SISTER FH: cancer 19 MOTHER (BRAIN) G8 BROTHER Glaucoma 19 FATHER Hypertension 19 FATHER Myocardial infarction 19 FATHER Psychosocial problem 19 FATHER G8 BROTHER G8 SISTER No Family History of: AIDS Abdominal aortic aneurysm Alzheimer's disease Arthritis Asthma Completed stroke Parkinson's disease Respiratory disorder Seizure disorder Severe allergy Thyroid disease No Pertinent Family Hx Review of Systems Constitutional: see HPI Physical Exam Physical Exam Vital Signs Vital Signs - First Documented 01/21/21 10:56 Temp 36.2 Pulse 112 Resp 18 B/P (MAP) 92/77 (82) Pulse Ox 87 O2 Delivery OxyMask O2 Flow Rate 10.00 Capillary Refill : Less Than 3 Seconds Height, Weight, BMI Height: 5'4.00" Weight: 127lbs. 4.0oz. 57.096818ts; 21.59 BMI Method:Stated General Appearance: No Apparent Distress, Chronically ill, Thin Respiratory: Lungs Clear, Normal Breath Sounds, No Respiratory Distress Cardiovascular: Regular Rate, Rhythm, No Edema, No Murmur Gastrointestinal: Normal Bowel Sounds, Soft, Distended Extremity: Normal Inspection, Pedal Edema Neurologic/Psychiatric: Other (Lethargic, minimally responsive) Skin: Warm/Dry, Pallor Results Results/Procedures Labs Laboratory Tests 01/21/21 12:20 Patient resulted labs reviewed. Assessment/Plan Admission Diagnosis Hemorrhagic shock due to variceal bleeding Admission Status: Inpatient Order (span 2 midnights) Reason for Inpatient Admission: Comfort measures only status Assessment and Plan Comfort measures only status End-stage liver disease Alcoholic cirrhosis Variceal bleeding Hemorrhagic shock Currently on [facility] Admitted for comfort measures only Comfort care order set placed Diagnosis/Problems Diagnosis/Problems (1) Comfort measures only status Status: Acute (2) End-stage liver disease Status: Acute (3) Decompensated hepatic cirrhosis Status: Acute (4) Hemorrhagic shock Status: Acute (5) Poor prognosis Status: Acute (6) Bleeding esophageal varices in alcoholic cirrhosis Status: Acute GERALD GAR MD Jan 21, 2021 15:17
[2021-01-21] MEDS ORDERED: PATIENT MAY USE OWN MEDS, ALL MC SCH (16:00)
[2021-01-21] MEDS ORDERED: morphine (ROXINOL) 10 MG/0.5 ML oral conc 0.5 ML PO PRN (17:15)
--- NOTE | 2021-01-21 20:30 | Discharge Summary ---
Discharge Summary Hospital Course Problems/Dx: (1) Comfort measures only status Status: Acute (2) End-stage liver disease Status: Acute (3) Decompensated hepatic cirrhosis Status: Acute (4) Hemorrhagic shock Status: Acute (5) Poor prognosis Status: Acute (6) Bleeding esophageal varices in alcoholic cirrhosis Status: Acute Hospital Course Date of Admission: Jan 21, 2021 at 12:25 Admission Diagnosis : Hemorrhagic shock due to esophageal varices secondary to end stage alcoholic liver disease Family Physician/Provider: Luis Ruby DO Date of Discharge: 01/21/21 Discharge Diagnosis: Hemorrhagic shock due to esophageal varices secondary to end stage alcoholic liver disease Hospital Course: Cora Ahumada was a 55 year old female with end stage liver disease due to alcoholic cirrhosis who was admitted with hemorrhagic shock due to bleeding esophageal varices. She was on hospice with [facility]. She was admitted for end of life care on comfort measures only status. She subsequently at 2006 on 01/21/2021. Labs and Pending Lab Test: Laboratory Tests 01/21/21 11:14: SARS-CoV-2 RNA (RT-PCR) Not Detected 01/21/21 12:20: White Blood Count 11.9H, Red Blood Count 3.38L, Hemoglobin 10.2L, Hematocrit 31L , Mean Corpuscular Volume 92, Mean Corpuscular Hemoglobin 30, Mean Corpuscular Hemoglobin Concent 33, Red Cell Distribution Width 18.0H, Platelet Count 178, Mean Platelet Volume 10.7, Immature Granulocyte % (Auto) 0, Neutrophils (%) (Auto) 87H, Lymphocytes (%) (Auto) 9L, Monocytes (%) (Auto) 3, Eosinophils (%) (Auto) 0, Basophils (%) (Auto) 0, Neutrophils # (Auto) 10.4H, Lymphocytes # (Auto) 1.1, Monocytes # (Auto) 0.3, Eosinophils # (Auto) 0.0, Basophils # (Auto) 0.0, Immature Granulocyte # (Auto) 0.1, Neutrophils % (Manual) 80, Lymphocytes % (Manual) 4, Monocytes % (Manual) 3, Eosinophils % (Manual) 2, Basophils % (Manual) 0, Metamyelocytes % 2, Band Neutrophils 9, Hypochromasia SLIGHT, Anisocytosis SLIGHT, Prothrombin Time 19.2H, INR Comment 1.6H, Sodium Level 125*L, Potassium Level 4.4, Chloride Level 94L, Carbon Dioxide Level 19L, Anion Gap 12, Blood Urea Nitrogen 17, Creatinine 3.53#H, Estimat Glomerular Filtration Rate 13, BUN/Creatinine Ratio 5, Glucose Level 95, Calcium Level 7.8L Home Meds Active Lactulose 20 Gm/30 Ml Solution 20 Gm PO BID Morphine Conc. 20mg/ml (Morphine Sulfate) 100 Mg/5 Ml Solution 5 Mg PO Q4H PRN Xifaxan (Rifaximin) 550 Mg Tablet 550 Mg PO BID Reported Furosemide 20 Mg Tablet 20 Mg PO DAILY Alprazolam 0.5 Mg Tablet 0.5 Mg PO BID Spironolactone 50 Mg Tablet 50 Mg PO DAILY B-1 (Thiamine HCl) 100 Mg Tablet 100 Mg PO DAILY Folic Acid 1 Mg Tablet 1 Mg PO DAILY Proair Hfa (Albuterol Sulfate) 1 Puff Puff 2 Puff INH Q4H PRN Sucralfate 1 Gm Tablet 1 Gm PO ACHS Propranolol HCl 60 Mg Tablet 60 Mg PO DAILY Neurontin (Gabapentin) 300 Mg Capsule 600 Mg PO HS TAKES 2 (300MG) CAPS Cetirizine HCl 10 Mg Tablet 10 Mg PO HS Levothyroxine Sodium 25 Mcg Tablet 25 Mcg PO DAILY Pantoprazole Sodium 40 Mg Tablet.dr 40 Mg PO DAILY Advair 250-50 Diskus (Fluticasone/Salmeterol) 1 Each Blst.w.dev 1 Puff INH BID Assessment/Pt Instructions Patient Discharge Planning: <30 minutes discharge planning Discharge Physical Examination Vital Signs Vital Signs Date Time Temp Pulse Resp B/P (MAP) Pulse Ox O2 Delivery O2 Flow Rate FiO2 01/21/21 19:37 OxyMask 10.00 01/21/21 15:40 87 01/21/21 13:38 88 8 77/44 01/21/21 10:56 36.2 Allergies: Coded Allergies: codeine (Verified Allergy, Unknown, Pt has received Lortab in the past, 01/13/21) fentanyl (Verified Adverse Reaction, Unknown, PATIENT REQUEST NOT TO HAVE IT , 11/08/19) Discharge Summary Date of Admission Jan 21, 2021 at 12:25 Date of Discharge Discharge Date: Jan 21, 2021 Discharge Time: 20:07 Admission Diagnosis Hemorrhagic shock due to variceal bleeding Comfort Measures/ End of Life Care: Hospice (Hospital) Date of : Jan 21, 2021 Time of : 20:07 Discharge Diagnosis Comfort measures only status End-stage liver disease Alcoholic cirrhosis Variceal bleeding Hemorrhagic shock (1) Comfort measures only status Status: Acute (2) End-stage liver disease Status: Acute (3) Decompensated hepatic cirrhosis Status: Acute (4) Hemorrhagic shock Status: Acute (5) Poor prognosis Status: Acute (6) Bleeding esophageal varices in alcoholic cirrhosis Status: Acute GERALD GAR MD Jan 21, 2021 20:30
[2021-01-21] MEDS ORDERED: LACTULOSE SYRUP 10GM/15ML (ENULOSE) 30ML UDC PO SCH (21:00)
[2021-01-24] MEDS ORDERED: SCOPOLAMINE PATCH REMOVAL TP SCH (14:29)
== END 2021-01-21 20:07 | disposition expired | DRG 951 ==
LOC: EDUNIT# 10:55 → ER 10:57 → 4TH 12:25
PROVIDERS: ADMIT Internal Medicine; ATTEND Internal Medicine
DX: Z51.5 Encounter for palliative care (principal); I85.11 Secondary esophageal varices with bleeding; R18.8 Other ascites; Z66 Do not resuscitate; K72.10 Chronic hepatic failure without coma; K74.60 Unspecified cirrhosis of liver; R57.8 Other shock; J44.9 Chronic obstructive pulmonary disease, unspecified; K21.9 Gastro-esophageal reflux disease without esophagitis; M79.7 Fibromyalgia; F41.9 Anxiety disorder, unspecified; F90.9 Attention-deficit hyperactivity disorder, unspecified type; I10 Essential (primary) hypertension; B19.20 Unspecified viral hepatitis C without hepatic coma; Z20.822 Contact with and (suspected) exposure to COVID-19; Z79.899 Other long term (current) drug therapy; Z87.891 Personal history of nicotine dependence; Z79.891 Long term (current) use of opiate analgesic; Z88.5 Allergy status to narcotic agent
CPT/HCPCS: 36415; 71045; 80048; 85007; 85027; 85610; 87636